=== PATIENT | male | born 1950 | race African-American/Black ===

== ENCOUNTER 2020-08-05 08:59 | Outpatient (REF) | payer MEDICARE, SELFPAY ==
[2020-08-05 10:17] LABS: Cholesterol 209 mg/dL; HDL Cholesterol 70 mg/dL; LDL Cholesterol Calculated 130 mg/dl; Triglycerides 46 mg/dL
== END 2020-08-05 09:00 | disposition home or self-care (01) ==
LOC: HO.LAB 08:59
PROVIDERS: PCP Internal Medicine; Visit Provider Internal Medicine
DX: E78.5 Hyperlipidemia, unspecified (principal)
CPT/HCPCS: 80061

== ENCOUNTER 2020-11-16 06:35 | Outpatient (REF) | payer MEDICARE, SELFPAY ==
[2020-11-16 07:47] LABS: Cholesterol 196 mg/dL; HDL Cholesterol 64 mg/dL; LDL Cholesterol Calculated 124 mg/dl; Triglycerides 44 mg/dL
== END 2020-11-16 06:36 | disposition home or self-care (01) ==
LOC: HO.LAB 06:35
PROVIDERS: Visit Provider Internal Medicine
DX: E11.9 Type 2 diabetes mellitus without complications (principal)
CPT/HCPCS: 36415; 80061

== ENCOUNTER 2020-12-02 08:33 | Day surgery (SDC) | payer MEDICARE, SELFPAY ==
[2020-11-28 11:59] VITALS: BMI 23.1
--- NOTE | 2020-11-30 14:53 | HO.ANESPROP2 ---
Documented by User: Blank Maddox 11/30/20 14:54 HPI - Anesthesia Eval Consult details Narrative: 70yo M for Colonoscopy PMFSH Past Medical History Medical History HTN (hypertension) Hx of pancreatitis Hyperlipidemia Family History Family History Father Diabetes Hypertension Prostate cancer Mother Alzheimers disease Surgical History Surgical History History of arthroplasty of right hip History of rectal polypectomy History of tonsillectomy Hx of colonoscopy Social History Social History Are you a primary medical care evaluation specialist to a significant other at home: No Do you presently have visiting nurse or other home services: No Alcohol intake: former Year quit: 2017 Smoking Status: Former smoker Smoking Quit Date: > 10 yrs ago Use of substances other than those prescribed or required for medical reasons: No Have you been hit, kicked, punched, or otherwise hurt by someone within the past year? If so, by whom?: No Advance Directives: No Advance Directives Information Provided: No Advance Directives on File: No Recently lost weight without trying: No Meds Allergies Allergy/AdvReac Type Severity Reaction Status Date / Time bee pollen [BEE STINGS] Allergy Mild SWELLING Verified 11/28/20 11:54 SHELLFISH Allergy Severe SWELLING Uncoded 11/28/20 11:54 Home Medications Medication Instructions Recorded Confirmed Type fexofenadine 180 mg tablet 180 mg PO DAILY 08/10/20 11/28/20 History tamsulosin 0.4 mg capsule 0.4 mg PO DAILY 08/10/20 11/28/20 History Exam Exam Date and Time: November 30, 2020 145 Height,Weight and Vital Signs: Height 6 ft 2 in Weight 81.647 kg Assessment and Plan Assessment Anesthesia Assessment: Chart Reviewed Documented by User: Augustin Bustillo MD 12/02/20 09:11 [facility] Past Medical History Medical History HTN (hypertension) Hx of pancreatitis Hyperlipidemia Family History Family History Father Diabetes Hypertension Prostate cancer Mother Alzheimers disease Surgical History Surgical History History of arthroplasty of right hip History of rectal polypectomy History of tonsillectomy Hx of colonoscopy Social History Social History Are you a primary medical care evaluation specialist to a significant other at home: No Do you presently have visiting nurse or other home services: No Alcohol intake: former Year quit: 2017 Smoking Status: Former smoker Smoking Quit Date: > 10 yrs ago Use of substances other than those prescribed or required for medical reasons: No Have you been hit, kicked, punched, or otherwise hurt by someone within the past year? If so, by whom?: No Advance Directives: No Advance Directives Information Provided: No Advance Directives on File: No Recently lost weight without trying: No Meds Allergies Allergy/AdvReac Type Severity Reaction Status Date / Time bee pollen [BEE STINGS] Allergy Mild SWELLING Verified 11/28/20 11:54 SHELLFISH Allergy Severe SWELLING Uncoded 11/28/20 11:54 Home Medications Medication Instructions Recorded Confirmed Type fexofenadine 180 mg tablet 180 mg PO DAILY 08/10/20 11/28/20 History tamsulosin 0.4 mg capsule 0.4 mg PO DAILY 08/10/20 11/28/20 History Exam Airway Mallampati Class: II TM Dist: >3cm Neck ROM: Full Partial: Upper and Lower Loose/Missing/Broken Teeth: Yes (Several missing, crowns, plaque) Heart: RRR Lungs: NL Assessment and Plan Assessment Anesthesia Assessment: Anesthesia Plan Discussed and Chart Reviewed Final Anesthetic Review NPO: Yes ASA Class: II Final Preanesthetic Review: No Changes in Pt Med Stat, Meds/Allgs Chart Reviewed and Consent Obtained/Reviewed Patient Risk: Low Procedure Risk: Low Anesthetic Plan Anesthetic Plan: MAC: and Neuraxial Block: Disposition: Standard PACU
[2020-12-02 09:05] VITALS: BP 129/78; PULSE 80; RESP 16; TEMP 36.1; O2SAT 99
[2020-12-02] MEDS: Lactated Ringers 1,000 ML 100 ML IVCONT (09:10)
[2020-12-02 10:34] VITALS: BP 105/62; PULSE 65; RESP 16; TEMP 36.1; O2SAT 100
--- NOTE | 2020-12-02 10:35 | PM.OP ---
Brief Operative Note Date of Service: 12/02/20 Pre-op diagnosis: Screening Post-op diagnosis: other (Diverticulosis) Procedure: Colonoscopy to the cecum and TI Surgeon: Michael Floyd Anesthesia: MAC Estimated blood loss (mL): 0 Pathology: none sent Condition: stable Disposition: PACU
[2020-12-02 10:48] VITALS: BP 127/73; PULSE 60; RESP 16; TEMP 36.6; O2SAT 100
--- NOTE | 2020-12-02 11:04 | OP_ITS ---
SURGEON: Michael Floyd MD INDICATIONS: The patient presents for evaluation of colorectal cancer screening. Full consent has been obtained from him for this, including risks of bleeding and perforation. PREOPERATIVE DIAGNOSIS: Colorectal cancer screening. POSTOPERATIVE DIAGNOSIS: PROCEDURE PERFORMED: Colonoscopy to the cecum and terminal ileum. ESTIMATED BLOOD LOSS: COMPLICATIONS: ANESTHESIA: Monitored anesthesia care. ASSISTANTS: SPECIMENS: POSTOPERATIVE DIAGNOSES: Colorectal cancer screening, diverticulosis, and internal hemorrhoids. DESCRIPTION OF PROCEDURE: The patient was placed in the left lateral decubitus position. The digital rectal exam revealed no abnormalities. The Olympus video pediatric colonoscope was entered into the rectum and advanced easily to the cecum. Once in the cecum, I did identify normal-appearing cecal pouch with appendiceal orifice and a normal-appearing ileocecal valve. The terminal ileum was cannulated and appeared normal. The scope was withdrawn back in the colon. The entire cecum and ileocecal valve appeared normal. The scope was slowly withdrawn assessing all mucosal surfaces carefully. Preparation was excellent. I did not visualize any sign of polyps, colitis, nor angiodysplasia. There was a moderate amount of sigmoid diverticulosis. In the rectum, scope was retroflexed visualizing internal hemorrhoids, but no other pathology. The rectal mucosa appeared normal. The scope was straightened out and withdrawn from the patient. He tolerated the procedure well and was returned to the recovery area in stable condition. IMPRESSION: 1. Diverticulosis. 2. Internal hemorrhoids. PLAN: Given the patient's negative exam, a negative colonoscopy in 2009, no family history of colon cancer, and his age, I do not think he will need any further screening colonoscopies. He will see me on a p.r.n. basis. MD JOSE Tate/CITLALI / [phone]
--- NOTE | 2020-12-02 11:18 | HO.POSTANES ---
Post Anesthesia Evaluation Post Anesthesia Evaluation Vital Signs: Vital Signs Temp Pulse Resp BP Pulse Ox 12/02/20 10:48 97.8 F 60 16 127/73 100 12/02/20 10:34 97.0 F 65 16 105/62 100 12/02/20 09:05 97.0 F 80 16 129/78 99 Anesthesia: Monitored Mental Status: Awake Pain Control: Satisfactory Nausea/Vomiting: None Hydration: Adequate Anesthesia-Related Issues: No Anes. Related Issues
== END 2020-12-02 11:13 | disposition home or self-care (01) ==
PROVIDERS: PCP Internal Medicine; Visit Provider Internal Medicine
PROC: 0DJD8ZZ Inspection of Lower Intestinal Tract, Via Natural or Artificial Opening Endoscopic (ICD-10-PCS; CPT 45378; principal; 2020-12-02 09:40)
DX: Z12.11 Encounter for screening for malignant neoplasm of colon (principal); K57.30 Diverticulosis of large intestine without perforation or abscess without bleeding; K64.8 Other hemorrhoids; I10 Essential (primary) hypertension; Z79.899 Other long term (current) drug therapy
CPT/HCPCS: G0121

== ENCOUNTER 2021-02-08 06:50 | Outpatient (REF) | payer MEDICARE, SELFPAY ==
[2021-02-08 07:23] LABS: MANUAL DIFF FLAG NO
[2021-02-08 07:38] LABS: Basophils Percent Auto 0.8 % (0-2); Eosinophils Absolute Auto 0.3 X10*3/uL (0.0-0.4); Eosinophils Percent Auto 6.3 % (0-4); Hematocrit 44.1 % (42-52); Imm Gran Abs Auto 0.01 X10*3/uL (0.00-0.03); Imm Gran Pct Auto 0.2 % (0.0-0.4); Lymphocytes Absolute Auto 2.1 X10*3/uL (1.2-4.9); Lymphocytes Percent Auto 43.5 % (20-40); Mean Corpuscular HGB Conc 31.7 g/dl (31.0-36.0); Mean Corpuscular Hemoglobin 24.9 pg (27.0-33.0); Mean Corpuscular Volume 78.3 fL (80-98); Mean Platelet Volume 8.7 fL (9.4-12.4); Monocytes Absolute Auto 0.4 X10*3/uL (0.1-1.2); Monocytes Percent Auto 8.2 % (2-11); Neutrophils Absolute Auto 1.9 X10*3/uL (2.0-8.3); Platelet Count 218 X10*3/uL (160-400); Red Blood Count 5.63 X10*6/uL (4.60-5.80); Red Cell Distribution Width 15.1 % (11.0-16.0); White Blood Count 4.7 X10*3/uL (4.8-10.8)
[2021-02-08 08:03] LABS: Alanine Aminotransferase 21 U/L (0-40); Albumin Level 4.2 g/dL (3.5-5.0); Alkaline Phosphatase 82 U/L (39-117); Anion Gap 8 (12-20); Aspartate Amino Transferase 20 U/L (5-37); Bilirubin Total 0.7 mg/dL (0.0-1.0); Blood Urea Nitrogen 14 mg/dL (9-16); Calcium 9.8 mg/dL (8.4-10.2); Carbon Dioxide 29 mmol/L (22-29); Chloride 108 mmol/L (96-108); Cholesterol 241 mg/dL; Estimated Glomerular Filt Rate > 60; Glucose Fasting 94 mg/dL (60-99); HDL Cholesterol 76 mg/dL; LDL Cholesterol Calculated 154 mg/dl; Potassium 4.4 mmol/L (3.3-5.1); Sodium 141 mmol/L (135-145); Total Protein 7.2 g/dL (6.5-8.0); Triglycerides 55 mg/dL
[2021-02-08 08:23] LABS: Prostate Specific Antigen 2.77 ng/mL (<0.05-4.0)
== END 2021-02-08 06:51 | disposition home or self-care (01) ==
LOC: HO.LAB 06:50
PROVIDERS: Absent Provider Nurse Practitioner Family; PCP Internal Medicine; Visit Provider Internal Medicine
DX: Z00.00 Encounter for general adult medical examination without abnormal findings (principal); E11.9 Type 2 diabetes mellitus without complications; Z12.5 Encounter for screening for malignant neoplasm of prostate
CPT/HCPCS: 36415; 80053; 80061; 84153; 85025

== ENCOUNTER 2021-06-26 05:58 | Outpatient (REF) | payer MEDICARE, SELFPAY ==
[2021-06-26 07:58] LABS: Cholesterol 228 mg/dL; HDL Cholesterol 68 mg/dL; LDL Cholesterol Calculated 148 mg/dl; Triglycerides 64 mg/dL
== END 2021-06-26 05:59 | disposition home or self-care (01) ==
LOC: HO.LAB 05:58
PROVIDERS: PCP Internal Medicine; Visit Provider Internal Medicine
DX: E11.9 Type 2 diabetes mellitus without complications (principal); E78.5 Hyperlipidemia, unspecified
CPT/HCPCS: 36415; 80061

== ENCOUNTER → 2021-08-16 12:59 | Outpatient (BNVA) | payer MEDICARE, SELFPAY | PROVIDERS: Visit Provider Urology | DX: N40.1 Benign prostatic hyperplasia with lower urinary tract symptoms (principal); N13.8 Other obstructive and reflux uropathy | CPT/HCPCS: Q3014 ==

== ENCOUNTER 2021-11-10 06:44 | Outpatient (REF) | payer MEDICARE, SELFPAY ==
[2021-11-10 08:03] LABS: Cholesterol 236 mg/dL; HDL Cholesterol 66 mg/dL; LDL Cholesterol Calculated 157 mg/dl; Triglycerides 65 mg/dL
== END 2021-11-10 06:45 | disposition home or self-care (01) ==
LOC: HO.LAB 06:44
PROVIDERS: PCP Internal Medicine; Visit Provider Internal Medicine
DX: E11.9 Type 2 diabetes mellitus without complications (principal)
CPT/HCPCS: 36415; 80061

== ENCOUNTER 2022-05-07 07:12 | Outpatient (REF) | payer MEDICARE, SELFPAY ==
[2022-05-07 07:29] LABS: MANUAL DIFF FLAG NO
[2022-05-07 08:04] LABS: Basophils Percent Auto 0.9 % (0-2); Eosinophils Absolute Auto 0.1 X10*3/uL (0.0-0.4); Eosinophils Percent Auto 2.4 % (0-4); Hematocrit 43.3 % (42.0-52.0); Imm Gran Abs Auto 0.01 X10*3/uL (0.00-0.03); Imm Gran Pct Auto 0.2 % (0.0-0.4); Lymphocytes Absolute Auto 1.8 X10*3/uL (1.2-4.9); Lymphocytes Percent Auto 38.2 % (20-40); Mean Corpuscular HGB Conc 32.3 g/dl (31.0-36.0); Mean Corpuscular Volume 77.5 fL (80.0-98.0); Monocytes Absolute Auto 0.3 X10*3/uL (0.1-1.2); Monocytes Percent Auto 7.3 % (2-11); Neutrophils Absolute Auto 2.4 x10*3/uL (2.0-8.3); Platelet Count 233 X10*3/uL (160-400); Red Blood Count 5.59 X10*6/uL (4.60-5.80); Red Cell Distribution Width 15.3 % (11.0-16.0); White Blood Count 4.7 X10*3/uL (4.8-10.8)
[2022-05-07 08:44] LABS: Alanine Aminotransferase 23 U/L (0-40); Albumin Level 4.2 g/dL (3.5-5.0); Alkaline Phosphatase 70 U/L (39-117); Anion Gap 12 (12-20); Aspartate Amino Transferase 22 U/L (5-37); Bilirubin Total 0.6 mg/dL (0.0-1.0); Blood Urea Nitrogen 20 mg/dL (9-16); Calcium 9.4 mg/dL (8.4-10.2); Carbon Dioxide 27 mmol/L (22-29); Chloride 107 mmol/L (96-108); Cholesterol 223 mg/dL; Estimated Glomerular Filt Rate > 60; Glucose Fasting 91 mg/dL (60-99); HDL Cholesterol 72 mg/dL; LDL Cholesterol Calculated 141 mg/dl; Potassium 4.6 mmol/L (3.3-5.1); Sodium 141 mmol/L (135-145); Total Protein 7.2 g/dL (6.5-8.0); Triglycerides 54 mg/dL
[2022-05-07 08:51] LABS: Prostate Specific Antigen Scr 2.87 ng/mL (<0.05-4.0); Thyroid Stimulating Hormone 1.44 uIU/mL (0.32-4.0)
== END 2022-05-07 07:13 | disposition home or self-care (01) ==
LOC: HO.LAB 07:12
PROVIDERS: PCP Internal Medicine; Visit Provider Internal Medicine
DX: Z00.00 Encounter for general adult medical examination without abnormal findings (principal); Z12.5 Encounter for screening for malignant neoplasm of prostate; Z13.0 Encounter for screening for diseases of the blood and blood-forming organs and certain disorders involving the immune mechanism
CPT/HCPCS: 36415; 80053; 80061; 84153; 84443; 85025

== ENCOUNTER 2022-06-29 06:43 | Outpatient (REF) | payer MEDICARE, SELFPAY ==
[2022-06-29 07:56] LABS: PSA,Total (Free>4and<10) 3.18 ng/mL (0.00-4.00)
== END 2022-06-29 06:44 | disposition home or self-care (01) ==
LOC: HO.LAB 06:43
PROVIDERS: PCP Internal Medicine; Visit Provider Urology
DX: Z12.5 Encounter for screening for malignant neoplasm of prostate (principal); N40.1 Benign prostatic hyperplasia with lower urinary tract symptoms; N13.8 Other obstructive and reflux uropathy
CPT/HCPCS: 36415; 84153

== ENCOUNTER → 2022-07-12 13:24 | Outpatient (BNVA) | payer MEDICARE, SELFPAY | PROVIDERS: PCP Internal Medicine; Visit Provider Urology | DX: N40.1 Benign prostatic hyperplasia with lower urinary tract symptoms (principal); N13.8 Other obstructive and reflux uropathy | CPT/HCPCS: Q3014 ==

== ENCOUNTER 2022-11-26 06:03 | Outpatient (REF) | payer MEDICARE, SELFPAY ==
[2022-11-26 06:18] LABS: MANUAL DIFF FLAG NO
[2022-11-26 07:46] LABS: Basophils Absolute Auto 0.1 X10*3/uL (0.0-0.2); Eosinophils Absolute Auto 0.2 X10*3/uL (0.0-0.4); Hematocrit 44.9 % (42.0-52.0); Hemoglobin 14.6 g/dl (14.0-18.0); Imm Gran Abs Auto 0.01 X10*3/uL (0.00-0.03); Imm Gran Pct Auto 0.2 % (0.0-0.4); Lymphocytes Absolute Auto 2.7 X10*3/uL (1.2-4.9); Lymphocytes Percent Auto 53.4 % (20-40); Mean Corpuscular HGB Conc 32.5 g/dl (31.0-36.0); Mean Corpuscular Hemoglobin 25.1 pg (27.0-33.0); Mean Corpuscular Volume 77.1 fL (80.0-98.0); Mean Platelet Volume 9.4 fL (9.4-12.4); Monocytes Absolute Auto 0.4 X10*3/uL (0.1-1.2); Monocytes Percent Auto 7.9 % (2-11); Neutrophils Absolute Auto 1.7 x10*3/uL (2.0-8.3); Neutrophils Percent Auto 33.5 % (45-73); Platelet Count 240 X10*3/uL (160-400); Red Blood Count 5.82 X10*6/uL (4.60-5.80); Red Cell Distribution Width 14.9 % (11.0-16.0)
[2022-11-26 08:13] LABS: Alanine Aminotransferase 19 U/L (0-40); Albumin Level 4.1 g/dL (3.5-5.0); Alkaline Phosphatase 71 U/L (39-117); Anion Gap 14 (12-20); Aspartate Amino Transferase 21 U/L (5-37); Bilirubin Total 0.7 mg/dL (0.0-1.0); Blood Urea Nitrogen 21 mg/dL (9-16); Calcium 9.7 mg/dL (8.4-10.2); Carbon Dioxide 28 mmol/L (22-29); Chloride 106 mmol/L (96-108); Cholesterol 256 mg/dL; Estimated Glomerular Filt Rate > 60; Glucose Fasting 87 mg/dL (60-99); HDL Cholesterol 70 mg/dL; LDL Cholesterol Calculated 174 mg/dl; Potassium 4.5 mmol/L (3.3-5.1); Sodium 143 mmol/L (135-145); Total Protein 7.1 g/dL (6.5-8.0); Triglycerides 62 mg/dL
== END 2022-11-26 06:04 | disposition home or self-care (01) ==
LOC: HO.LAB 06:03
PROVIDERS: PCP Internal Medicine; Visit Provider Internal Medicine
DX: Z00.00 Encounter for general adult medical examination without abnormal findings (principal); Z13.0 Encounter for screening for diseases of the blood and blood-forming organs and certain disorders involving the immune mechanism; E78.5 Hyperlipidemia, unspecified
CPT/HCPCS: 36415; 80053; 80061; 85025

== ENCOUNTER 2022-12-24 19:09 | Emergency (ER) | payer MEDICARE, SELFPAY ==
--- NOTE | ~2022-12-24 | CT_ITS ---
EXAMINATION: CT HEAD WITHOUT CONTRAST CLINICAL INFORMATION: Severe headache. COMPARISON: CT head from 07-17. TECHNIQUE: Contiguous axial imaging was performed from the skull base to vertex without intravenous administration of contrast. This CT examination was performed using dose optimization techniques as appropriate, variously including the following: *Automated exposure control. *Adjustment of mA and/or kV according to patient size (this includes techniques or standardized protocols for targeted exams where dose is matched to indication/reason for exam; i.e. extremities or head). *Use of iterative reconstruction technique. DLP: 600 mGy-cm FINDINGS: There is no evidence of acute intracranial hemorrhage or edematous territorial infarction. Dejesus-white matter differentiation is preserved. A few foci of hypoattenuation in the periventricular and deep white matter are consistent with mild microangiopathy. Proportional prominence of the ventricles and sulcal spaces without evidence of obstructive hydrocephalus. No abnormal mass effect or midline shift. No extra-axial fluid collections. No acute soft tissue or osseous abnormalities. Mild mucosal thickening of the paranasal sinuses. Moderate leftward nasal septal deviation with spurring. The mastoid air cells and middle ear cavities are clear. CT/CT head/brain wo IV con IMPRESSION: 1. No evidence of acute intracranial hemorrhage or edematous territorial infarction. 2. Mild underlying microangiopathy and generalized cerebral volume loss.
--- NOTE | ~2022-12-24 | CT_ITS ---
EXAMINATION: CT ABDOMEN AND PELVIS WITHOUT CONTRAST CLINICAL INFORMATION: Mid abdominal pain with history of pancreatitis COMPARISON: 07-15 TECHNIQUE: Multidetector volumetric imaging was performed from the superior aspect of the liver through the pubic symphysis. Sagittal and coronal reformatted images were obtained on the technologist's workstation. This CT examination was performed using dose optimization techniques as appropriate, variously including the following: *Automated exposure control *Adjustment of mA and/or kV according to patient size (this includes techniques or standardized protocols for targeted exams where dose is matched to indication/reason for exam; i.e. extremities or head) *Use of iterative reconstruction technique DLP: 556 mGy-cm FINDINGS: LUNG BASES: Prominent emphysematous changes redemonstrated. LIVER, GALLBLADDER, AND BILIARY TREE: The liver is normal in size, shape, and attenuation. No focal hepatic lesion or biliary ductal dilatation is identified. Gallbladder is contracted. PANCREAS: Unremarkable. SPLEEN: Unremarkable. ADRENAL GLANDS: Unremarkable. KIDNEYS AND URETERS: No hydronephrosis or obstructing calculus bilaterally. BLADDER: Unremarkable. GASTROINTESTINAL TRACT: No evidence of bowel obstruction or wall thickening. Colonic diverticulosis is noted. The appendix is unremarkable. No free fluid or free air is seen. ABDOMINAL WALL: No significant hernia is appreciated. LYMPH NODES: No lymphadenopathy is seen, though assessment is limited in the absence of intravenous contrast. VASCULAR: Scattered atherosclerotic calcifications. PELVIC VISCERA: Unremarkable. OSSEOUS STRUCTURES: Degenerative changes are noted in the spine. Partially visualized right total hip arthroplasty hardware. CT/CT abdomen pelvis wo IV con IMPRESSION: No acute findings identified in the abdomen/pelvis. Colonic diverticulosis without diverticulitis.
[2022-12-24 20:22] VITALS: BP 139/76; PULSE 81; RESP 16; TEMP 36.6; O2SAT 96; BMI 23.3
--- NOTE | 2022-12-24 20:22 | ED_ITS ---
HPI - Headache General Chief Complaint: Headache <MAURO Verma - Last Filed: 12/24/22 20:26> Stated Complaint: severe h/a,and neck pain sent from clinic <MAURO Verma - Last Filed: 12/24/22 20:26> Time Seen by Provider: 12/24/22 22:27 <MAURO Verma - Last Filed: 12/24/22 20:26> Source: patient <Jasson Curry MD - Last Filed: 12/25/22 00:59> Mode of arrival: ambulatory <Jasson Curry MD - Last Filed: 12/25/22 00:59> Limitations: no limitations <Jasson Curry MD - Last Filed: 12/25/22 00:59> History of Present Illness HPI Narrative: Patient with history of hypertension hyperlipidemia complaining of pain in the right side of the head for last 5 days no trauma no prior history of headaches patient feel sensitive to light no nausea no vomiting patient also complaining of epigastric pain with history of pancreatitis in the past pain is going on for last 1 week no nausea no vomiting feel abdomen gaseous distended. No fever no chills no urinary symptoms <Jasson Curry MD - Last Filed: 12/25/22 00:59> Related Data Home Medications: Home Medications Medication Instructions Recorded Confirmed fexofenadine 180 mg tablet 180 mg PO DAILY 08/10/20 11/28/22 (Jessica Allergy) Previous Rx's Medication Instructions Recorded benazepril 20 mg tablet 20 mg PO DAILY #90 tabs 12/29/21 atorvastatin 40 mg tablet 40 mg PO DAILY #90 tabs 11/28/22 ibuprofen 600 mg tablet 600 mg PO Q6H PRN pain #20 tabs 12/25/22 <MAURO Verma - Last Filed: 12/24/22 20:26> Allergies/Adverse Reactions: Allergies Allergy/AdvReac Type Severity Reaction Status Date / Time bee pollen [BEE STINGS] Allergy Mild SWELLING Verified 11/28/22 08:57 SHELLFISH Allergy Severe SWELLING Uncoded 10/10/22 11:14 <MAURO Verma - Last Filed: 12/24/22 20:26> Review of Systems Review of Systems: Yes all other systems are reviewed and are negative <Jasson Curry MD - Last Filed: 12/25/22 00:59> [facility] Past Medical History Medical History: Medical History HTN (hypertension) Hx of pancreatitis Hyperlipidemia <MAURO Verma - Last Filed: 12/24/22 20:26> Surgical History: Surgical History History of arthroplasty of right hip History of rectal polypectomy History of tonsillectomy Hx of colonoscopy <MAURO Verma - Last Filed: 12/24/22 20:26> Family History Family History: Family History Father Diabetes Hypertension Prostate cancer Mother Alzheimers disease <MAURO Verma - Last Filed: 12/24/22 20:26> Social History Social History: Social History Housing: House Are you a primary career development coordinator/teacher to a significant other at home: No Do you presently have visiting nurse or other home services: No Alcohol intake: former Year quit: 2018 Patient Tobacco Use Status: Former Tobacco user Tobacco use type: Cigarette e-Cigarette/Vaping Use: Never Used Second Hand Smoke Exposure: No Use of substances other than those prescribed or required for medical reasons: No Advance Directives: No Advance Directives Information Provided: Yes service: No Current occupational status: retired Cognitive needs: No Hearing needs: Yes (hearing aides) Vision needs: Yes (glasses) <MAURO Verma - Last Filed: 12/24/22 20:26> Physical Exam Vital Signs: Vital Signs: Last Vital Signs Temp 98.6 F 12/24/22 23:37 Pulse 69 12/24/22 23:37 Resp 16 12/24/22 23:37 BP 137/80 12/24/22 23:37 Pulse Ox 97 12/24/22 23:37 O2 Del Method 12/24/22 23:37 BMI result Body Mass Index 23.3 <MAURO Verma - Last Filed: 12/24/22 20:26> Vital Signs: Last Vital Signs Temp 98.6 F 12/24/22 23:37 Pulse 69 12/24/22 23:37 Resp 16 12/24/22 23:37 BP 137/80 12/24/22 23:37 Pulse Ox 97 12/24/22 23:37 O2 Del Method 12/24/22 23:37 BMI result Body Mass Index 23.3 <Jasson Curry MD - Last Filed: 12/25/22 00:59> Appearance: Alert. Oriented X3. No acute distress. Eyes: PERRLA, No Nystagmus ENT: Pharynx normal. Oral Mucosa moist Neck: Normal inspection. Neck supple. CVS: Normal heart rate and rhythm. Pulses normal. Respiratory: No respiratory distress. Equal air entry bilateral, no wheezing/rales/rhonchi Abdomen: Soft, mild epigastric tenderness,. Bowel sounds are present, no mass palpable, no CVA tenderness Skin: Skin warm and dry. Normal skin color. Normal skin turgor. Extremities: No lower extremity edema. No calf tenderness Neuro: Oriented X 3. No motor deficit. No sensory deficit.No cerebellar signs , cranial nerves II-XII intact <Jasson Curry MD - Last Filed: 12/25/22 00:59> Course Course Course Narrative: RME - 72 yo male with history of HTN, HLD, BPH presents to the ER for evaluation of persistent headache since 12/20. He also reports sore throat pain, sore neck, chills, occasional cough. Has been taking Theraflu wtih no relief. Was seen at Urgent Care today and told to come to the ER for evaluation - had negative COVID and Flu tests there. Reports eye pain and diffculty reading and watching TV due to eye pain. No blurred vision or vision changes. VSS in triage, appears well. Plan - CT head, labs, viral studies. <MAURO Verma - Last Filed: 12/24/22 20:26> Medications Administered Discontinued Medications Generic Name Dose Route Start Last Admin Trade Name Freq PRN Reason Stop Dose Admin Famotidine 20 mg 12/24/22 22:46 12/24/22 23:12 Famotidine/Pf 20 Mg/2 Ml Vial IVPUSH 12/24/22 22:47 20 mg ONCE ONE Administration Sodium Chloride 1,000 mls @ 999 mls/hr 12/24/22 22:45 12/25/22 00:52 Ns IV 12/24/22 23:45 Infused .Q1H1M ONE Infusion Morphine Sulfate 4 mg 12/24/22 22:46 12/24/22 23:11 Morphine Sulfate 4 Mg/Ml Cartridge IVPUSH 12/24/22 22:47 4 mg ONCE ONE Administration Protocol Ondansetron HCl 4 mg 12/24/22 22:46 12/24/22 23:12 Ondansetron Hcl 4 Mg/2 Ml Vial IVPUSH 12/24/22 22:47 4 mg ONCE ONE Administration <MAURO Verma - Last Filed: 12/24/22 20:26> Medications Administered Discontinued Medications Generic Name Dose Route Start Last Admin Trade Name Amish PRN Reason Stop Dose Admin Famotidine 20 mg 12/24/22 22:46 12/24/22 23:12 Famotidine/Pf 20 Mg/2 Ml Vial IVPUSH 12/24/22 22:47 20 mg ONCE ONE Administration Sodium Chloride 1,000 mls @ 999 mls/hr 12/24/22 22:45 12/25/22 00:52 Ns IV 12/24/22 23:45 Infused .Q1H1M ONE Infusion Morphine Sulfate 4 mg 12/24/22 22:46 12/24/22 23:11 Morphine Sulfate 4 Mg/Ml Cartridge IVPUSH 12/24/22 22:47 4 mg ONCE ONE Administration Protocol Ondansetron HCl 4 mg 12/24/22 22:46 12/24/22 23:12 Ondansetron Hcl 4 Mg/2 Ml Vial IVPUSH 12/24/22 22:47 4 mg ONCE ONE Administration <Jasson Curry MD - Last Filed: 12/25/22 00:59> Medical Decision Making Medical Decision Making MDM Narrative: Patient nonspecific right-sided headache likely migraine CT scan of the head is negative also had epigastric pain with CT scan of the abdomen was negative elevated LFTs likely from at rest stated stared taking for last 2 weeks. Also patient does have history of alcohol use. Patient advised to follow with GI specialist for further evaluation <Jasson Curry MD - Last Filed: 12/25/22 00:59> Lab Data MDM Lab Attestation statement: I reviewed the patient's lab results. <Jasson Curry MD - Last Filed: 12/25/22 00:59> Result Diagrams: 12/24/22 20:47 12/24/22 20:47 <MAURO Verma - Last Filed: 12/24/22 20:26> Labs: Lab Results 12/24/22 12/24/22 12/24/22 Range/Units 20:47 20:47 20:47 WBC 4.9 (4.8-10.8) X10*3/uL RBC 5.57 (4.60-5.80) X10*6/uL Hgb 13.8 L (14.0-18.0) g/dl Hct 42.1 (42.0-52.0) % MCV 75.6 L (80.0-98.0) fL MCH 24.8 L (27.0-33.0) pg MCHC 32.8 (31.0-36.0) g/dl RDW 14.7 (11.0-16.0) % Plt Count 181 (160-400) X10*3/uL MPV 9.0 L (9.4-12.4) fL Immature Gran % (Auto) 0.2 (0.0-0.4) % Neut % (Auto) 53.9 (45-73) % Lymph % (Auto) 27.1 (20-40) % Worth % (Auto) 9.6 (2-11) % Eos % (Auto) 8.6 H (0-4) % Baso % (Auto) 0.6 (0-2) % Lymph # (Auto) 1.3 (1.2-4.9) X10*3/uL Worth # (Auto) 0.5 (0.1-1.2) X10*3/uL Eos # (Auto) 0.4 (0.0-0.4) X10*3/uL Baso # (Auto) 0.0 (0.0-0.2) X10*3/uL Abs Immat Gran (auto) 0.01 (0.00-0.03) X10*3/uL Absolute Neuts (auto) 2.7 (2.0-8.3) x10*3/uL Absolute Nucleated RBC 0.000 (0.0-0.012) X10*3/uL Nucleated RBC % (auto) 0.0 (0.0-0.2) /100WBC Sodium 142 (135-145) mmol/L Potassium 3.9 (3.3-5.1) mmol/L Chloride 107 (96-108) mmol/L Carbon Dioxide 26 (22-29) mmol/L Anion Gap 13 (12-20) BUN 18 H (9-16) mg/dL Creatinine 1.07 (0.5-1.4) mg/dL Estim Creat Clear Calc 70.4 Estimated GFR > 60 Random Glucose 115 (60-115) mg/dL Calcium 8.7 D (8.4-10.2) mg/dL Magnesium 2.2 (1.6-2.6) mg/dL Total Bilirubin 4.6 H (0.0-1.0) mg/dL Direct Bilirubin 3.4 H (0.0-0.5) mg/dL AST 117 H (5-37) U/L ALT 192 H (0-40) U/L Alkaline Phosphatase 279 H (39-117) U/L Total Protein 6.5 (6.5-8.0) g/dL Albumin 3.5 (3.5-5.0) g/dL Lipase 39 (8-78) U/L Urine Color Urine Appearance Urine pH (5.0-9.0) Ur Specific [place] (1.005-1.025) Urine Protein (Neg-Trace) mg/dL Urine Glucose (UA) (Negative) mg/dL Urine Ketones (Negative) mg/dL Urine Blood (Negative) Urine Nitrite (Negative) Ur Leukocyte Esterase (Negative) Urine RBC (0-2) /HPF Urine WBC (0-5) /HPF Ur Squamous Epith Cells (0-2) /HPF Urine Bacteria (None Seen) Hyaline Casts (0-2) /LPF COVID-19 (GUERO) Negative (Negative) COVID-19 Clin Com See Note Influenza Type A (MARY) (Negative) Influenza Type B (MARY) (Negative) Influenza A & B Note 12/24/22 12/25/22 Range/Units 20:47 00:30 WBC (4.8-10.8) X10*3/uL RBC (4.60-5.80) X10*6/uL Hgb (14.0-18.0) g/dl Hct (42.0-52.0) % MCV (80.0-98.0) fL MCH (27.0-33.0) pg MCHC (31.0-36.0) g/dl RDW (11.0-16.0) % Plt Count (160-400) X10*3/uL MPV (9.4-12.4) fL Immature Gran % (Auto) (0.0-0.4) % Neut % (Auto) (45-73) % Lymph % (Auto) (20-40) % Worth % (Auto) (2-11) % Eos % (Auto) (0-4) % Baso % (Auto) (0-2) % Lymph # (Auto) (1.2-4.9) X10*3/uL Worth # (Auto) (0.1-1.2) X10*3/uL Eos # (Auto) (0.0-0.4) X10*3/uL Baso # (Auto) (0.0-0.2) X10*3/uL Abs Immat Gran (auto) (0.00-0.03) X10*3/uL Absolute Neuts (auto) (2.0-8.3) x10*3/uL Absolute Nucleated RBC (0.0-0.012) X10*3/uL Nucleated RBC % (auto) (0.0-0.2) /100WBC Sodium (135-145) mmol/L Potassium (3.3-5.1) mmol/L Chloride (96-108) mmol/L Carbon Dioxide (22-29) mmol/L Anion Gap (12-20) BUN (9-16) mg/dL Creatinine (0.5-1.4) mg/dL Estim Creat Clear Calc Estimated GFR Random Glucose (60-115) mg/dL Calcium (8.4-10.2) mg/dL Magnesium (1.6-2.6) mg/dL Total Bilirubin (0.0-1.0) mg/dL Direct Bilirubin (0.0-0.5) mg/dL AST (5-37) U/L ALT (0-40) U/L Alkaline Phosphatase (39-117) U/L Total Protein (6.5-8.0) g/dL Albumin (3.5-5.0) g/dL Lipase (8-78) U/L Urine Color Dark Yellow Urine Appearance Clear Urine pH 6.0 (5.0-9.0) Ur Specific [place] 1.020 (1.005-1.025) Urine Protein 100 (2+) H (Neg-Trace) mg/dL Urine Glucose (UA) Negative (Negative) mg/dL Urine Ketones Trace (Negative) mg/dL Urine Blood Trace H (Negative) Urine Nitrite Negative (Negative) Ur Leukocyte Esterase Trace H (Negative) Urine RBC 3-5 H (0-2) /HPF Urine WBC 0-5 (0-5) /HPF Ur Squamous Epith Cells 0-2 (0-2) /HPF Urine Bacteria None Seen (None Seen) Hyaline Casts 0-2 (0-2) /LPF COVID-19 (GUERO) (Negative) COVID-19 Clin Com Influenza Type A (MARY) Negative (Negative) Influenza Type B (MARY) Negative (Negative) Influenza A & B Note See Note <MAURO Verma - Last Filed: 12/24/22 20:26> Lab Results 12/24/22 12/24/22 12/24/22 Range/Units 20:47 20:47 20:47 WBC 4.9 (4.8-10.8) X10*3/uL RBC 5.57 (4.60-5.80) X10*6/uL Hgb 13.8 L (14.0-18.0) g/dl Hct 42.1 (42.0-52.0) % MCV 75.6 L (80.0-98.0) fL MCH 24.8 L (27.0-33.0) pg MCHC 32.8 (31.0-36.0) g/dl RDW 14.7 (11.0-16.0) % Plt Count 181 (160-400) X10*3/uL MPV 9.0 L (9.4-12.4) fL Immature Gran % (Auto) 0.2 (0.0-0.4) % Neut % (Auto) 53.9 (45-73) % Lymph % (Auto) 27.1 (20-40) % Worth % (Auto) 9.6 (2-11) % Eos % (Auto) 8.6 H (0-4) % Baso % (Auto) 0.6 (0-2) % Lymph # (Auto) 1.3 (1.2-4.9) X10*3/uL Worth # (Auto) 0.5 (0.1-1.2) X10*3/uL Eos # (Auto) 0.4 (0.0-0.4) X10*3/uL Baso # (Auto) 0.0 (0.0-0.2) X10*3/uL Abs Immat Gran (auto) 0.01 (0.00-0.03) X10*3/uL Absolute Neuts (auto) 2.7 (2.0-8.3) x10*3/uL Absolute Nucleated RBC 0.000 (0.0-0.012) X10*3/uL Nucleated RBC % (auto) 0.0 (0.0-0.2) /100WBC Sodium 142 (135-145) mmol/L Potassium 3.9 (3.3-5.1) mmol/L Chloride 107 (96-108) mmol/L Carbon Dioxide 26 (22-29) mmol/L Anion Gap 13 (12-20) BUN 18 H (9-16) mg/dL Creatinine 1.07 (0.5-1.4) mg/dL Estim Creat Clear Calc 70.4 Estimated GFR > 60 Random Glucose 115 (60-115) mg/dL Calcium 8.7 D (8.4-10.2) mg/dL Magnesium 2.2 (1.6-2.6) mg/dL Total Bilirubin 4.6 H (0.0-1.0) mg/dL Direct Bilirubin 3.4 H (0.0-0.5) mg/dL AST 117 H (5-37) U/L ALT 192 H (0-40) U/L Alkaline Phosphatase 279 H (39-117) U/L Total Protein 6.5 (6.5-8.0) g/dL Albumin 3.5 (3.5-5.0) g/dL Lipase 39 (8-78) U/L Urine Color Urine Appearance Urine pH (5.0-9.0) Ur Specific [place] (1.005-1.025) Urine Protein (Neg-Trace) mg/dL Urine Glucose (UA) (Negative) mg/dL Urine Ketones (Negative) mg/dL Urine Blood (Negative) Urine Nitrite (Negative) Ur Leukocyte Esterase (Negative) Urine RBC (0-2) /HPF Urine WBC (0-5) /HPF Ur Squamous Epith Cells (0-2) /HPF Urine Bacteria (None Seen) Hyaline Casts (0-2) /LPF COVID-19 (GUERO) Negative (Negative) COVID-19 Clin Com See Note Influenza Type A (MARY) (Negative) Influenza Type B (MARY) (Negative) Influenza A & B Note 12/24/22 12/25/22 Range/Units 20:47 00:30 WBC (4.8-10.8) X10*3/uL RBC (4.60-5.80) X10*6/uL Hgb (14.0-18.0) g/dl Hct (42.0-52.0) % MCV (80.0-98.0) fL MCH (27.0-33.0) pg MCHC (31.0-36.0) g/dl RDW (11.0-16.0) % Plt Count (160-400) X10*3/uL MPV (9.4-12.4) fL Immature Gran % (Auto) (0.0-0.4) % Neut % (Auto) (45-73) % Lymph % (Auto) (20-40) % Worth % (Auto) (2-11) % Eos % (Auto) (0-4) % Baso % (Auto) (0-2) % Lymph # (Auto) (1.2-4.9) X10*3/uL Worth # (Auto) (0.1-1.2) X10*3/uL Eos # (Auto) (0.0-0.4) X10*3/uL Baso # (Auto) (0.0-0.2) X10*3/uL Abs Immat Gran (auto) (0.00-0.03) X10*3/uL Absolute Neuts (auto) (2.0-8.3) x10*3/uL Absolute Nucleated RBC (0.0-0.012) X10*3/uL Nucleated RBC % (auto) (0.0-0.2) /100WBC Sodium (135-145) mmol/L Potassium (3.3-5.1) mmol/L Chloride (96-108) mmol/L Carbon Dioxide (22-29) mmol/L Anion Gap (12-20) BUN (9-16) mg/dL Creatinine (0.5-1.4) mg/dL Estim Creat Clear Calc Estimated GFR Random Glucose (60-115) mg/dL Calcium (8.4-10.2) mg/dL Magnesium (1.6-2.6) mg/dL Total Bilirubin (0.0-1.0) mg/dL Direct Bilirubin (0.0-0.5) mg/dL AST (5-37) U/L ALT (0-40) U/L Alkaline Phosphatase (39-117) U/L Total Protein (6.5-8.0) g/dL Albumin (3.5-5.0) g/dL Lipase (8-78) U/L Urine Color Dark Yellow Urine Appearance Clear Urine pH 6.0 (5.0-9.0) Ur Specific [place] 1.020 (1.005-1.025) Urine Protein 100 (2+) H (Neg-Trace) mg/dL Urine Glucose (UA) Negative (Negative) mg/dL Urine Ketones Trace (Negative) mg/dL Urine Blood Trace H (Negative) Urine Nitrite Negative (Negative) Ur Leukocyte Esterase Trace H (Negative) Urine RBC 3-5 H (0-2) /HPF Urine WBC 0-5 (0-5) /HPF Ur Squamous Epith Cells 0-2 (0-2) /HPF Urine Bacteria None Seen (None Seen) Hyaline Casts 0-2 (0-2) /LPF COVID-19 (GUERO) (Negative) COVID-19 Clin Com Influenza Type A (MARY) Negative (Negative) Influenza Type B (MARY) Negative (Negative) Influenza A & B Note See Note <Jasson Curry MD - Last Filed: 12/25/22 00:59> Discharge Plan Discharge Clinical Impression: Headache, Elevated liver function tests <MAURO Verma - Last Filed: 12/24/22 20:26> Patient Disposition: Home, Self-Care <MAURO Verma - Last Filed: 12/24/22 20:26> Instructions: General Headache (ED) <MAURO Verma - Last Filed: 12/24/22 20:26> Additional Instructions: You have elevated liver function test stop taking atorvastatin for now follow-up with PCP and recheck liver function test in 2 weeks The headache is likely atypical migraine, take ibuprofenl for pain <MAURO Verma - Last Filed: 12/24/22 20:26> Prescriptions: New ibuprofen 600 mg tablet 600 mg PO Q6H PRN (Reason: pain) Qty: 20 0RF No Action benazepril 20 mg tablet 20 mg PO DAILY Qty: 90 8RF fexofenadine [Jessica Allergy] 180 mg tablet 180 mg PO DAILY atorvastatin 40 mg tablet 40 mg PO DAILY Qty: 90 4RF <MAURO Verma - Last Filed: 12/24/22 20:26>
[2022-12-24 20:56] LABS: MANUAL DIFF FLAG NO
[2022-12-24 20:59] LABS: Basophils Percent Auto 0.6 % (0-2); Eosinophils Absolute Auto 0.4 X10*3/uL (0.0-0.4); Eosinophils Percent Auto 8.6 % (0-4); Hematocrit 42.1 % (42.0-52.0); Hemoglobin 13.8 g/dl (14.0-18.0); Imm Gran Abs Auto 0.01 X10*3/uL (0.00-0.03); Imm Gran Pct Auto 0.2 % (0.0-0.4); Lymphocytes Absolute Auto 1.3 X10*3/uL (1.2-4.9); Lymphocytes Percent Auto 27.1 % (20-40); Mean Corpuscular HGB Conc 32.8 g/dl (31.0-36.0); Mean Corpuscular Hemoglobin 24.8 pg (27.0-33.0); Mean Corpuscular Volume 75.6 fL (80.0-98.0); Monocytes Absolute Auto 0.5 X10*3/uL (0.1-1.2); Monocytes Percent Auto 9.6 % (2-11); Neutrophils Absolute Auto 2.7 x10*3/uL (2.0-8.3); Neutrophils Percent Auto 53.9 % (45-73); Platelet Count 181 X10*3/uL (160-400); Red Blood Count 5.57 X10*6/uL (4.60-5.80); Red Cell Distribution Width 14.7 % (11.0-16.0); White Blood Count 4.9 X10*3/uL (4.8-10.8)
[2022-12-24 21:18] LABS: COVID-19 Test Negative (Negative); IDNOW Serial# 9DB6401D; IDNOW Serial# BCCEAD1C; Influenza A Negative (Negative)
[2022-12-24 21:19] LABS: Influenza B2 Negative (Negative)
[2022-12-24 21:20] LABS: Alanine Aminotransferase 192 U/L (0-40); Albumin Level 3.5 g/dL (3.5-5.0); Alkaline Phosphatase 279 U/L (39-117); Anion Gap 13 (12-20); Aspartate Amino Transferase 117 U/L (5-37); Bilirubin Direct 3.4 mg/dL (0.0-0.5); Bilirubin Total 4.6 mg/dL (0.0-1.0); Blood Urea Nitrogen 18 mg/dL (9-16); Calcium 8.7 mg/dL (8.4-10.2); Carbon Dioxide 26 mmol/L (22-29); Chloride 107 mmol/L (96-108); Creatinine Clr Calc Pharmacy 70.4; Estimated Glomerular Filt Rate > 60; Glucose Random 115 mg/dL (60-115); Magnesium 2.2 mg/dL (1.6-2.6); Potassium 3.9 mmol/L (3.3-5.1); Sodium 142 mmol/L (135-145); Total Protein 6.5 g/dL (6.5-8.0)
[2022-12-24 22:09] VITALS: BP 129/65; PULSE 74; RESP 18; TEMP 36.7; O2SAT 98
[2022-12-24 22:57] LABS: Lipase 39 U/L (8-78)
[2022-12-24] MEDS: Morphine Sulfate 4 MG/ML CARTRIDGE IVPUSH (23:11)
[2022-12-24] MEDS: ondansetron HCL 4 MG/2 ML VIAL IVPUSH (23:12)
[2022-12-24] MEDS: Famotidine/PF 20 MG/2 ML VIAL IVPUSH (23:12)
[2022-12-24] MEDS: 0.9 % Sodium Chloride 1,000 ML 999 ML IV (23:12)
--- NOTE | 2022-12-24 23:24 | PC.NURSE ---
pt change into attire, pt de-stated into 79, respiratory called and Dr Plunkett, pt suctioned and ox-masked increase to 7 liters, Provider called son Gorge and discussed plan of care, pt will remain full code. Will continue to monitor.
--- NOTE | 2022-12-24 23:29 | PC.NURSE ---
pt changed into hospital attire, Iv line placed, medicated per dec, pt being taken to CT scan for further testing, pt is a&o, no sob or chest pain. no sign of distress at this time, will continue to monitor.
[2022-12-24 23:37] VITALS: BP 137/80; PULSE 69; RESP 16; TEMP 37; O2SAT 97
[2022-12-25 00:39] LABS: Appearance Urine Clear; Color Urine Dark Yellow; Glucose Urine UA Negative (Negative); Leukocyte Esterase Urine Trace (Negative); Nitrite Urine Negative (Negative); UMIC TRIGGER UACC YES; Urine Blood Trace (Negative); Urine Ketones Trace mg/dL (Negative); Urine Protein 100 (2+) mg/dL (Neg-Trace)
[2022-12-25 00:44] LABS: Bacteria Urine None Seen (None Seen); Hyaline Casts Urine 0-2 /LPF (0-2); Squamous Epithelial Cell Urine 0-2 /HPF (0-2); WBC Urine 0-5 /HPF (0-5)
--- NOTE | 2022-12-25 01:06 | PC.NURSE ---
pt a&o, no sob or chest pain, Headache has improved. Reviewed discharge instructions, pt verbalized understanding. Pt discharge with no sign of distress.
== END 2022-12-25 02:00 | disposition home or self-care (01) ==
PROVIDERS: Physician Assistant; Emergency Provider Internal Medicine; PCP Internal Medicine
DX: R51.9 Headache, unspecified (principal); R79.89 Other specified abnormal findings of blood chemistry; Z20.822 Contact with and (suspected) exposure to COVID-19; I10 Essential (primary) hypertension; E78.5 Hyperlipidemia, unspecified; Z87.891 Personal history of nicotine dependence; Z79.02 Long term (current) use of antithrombotics/antiplatelets; Z79.899 Other long term (current) drug therapy
CPT/HCPCS: 70450; 74176; 80048; 80076; 81001; 83690; 83735; 85025; 87502; 87635; 96361; 96374; 96375; 99284; J2270; J2405

== ENCOUNTER 2023-01-01 06:08 | Outpatient (REF) | payer MEDICARE, SELFPAY ==
[2023-01-01 08:11] LABS: Cholesterol 243 mg/dL; HDL Cholesterol 40 mg/dL; LDL Cholesterol Calculated 189 mg/dl; Triglycerides 72 mg/dL
== END 2023-01-01 06:09 | disposition home or self-care (01) ==
LOC: HO.LAB 06:08
PROVIDERS: PCP Internal Medicine; Visit Provider Internal Medicine
DX: E78.5 Hyperlipidemia, unspecified (principal)
CPT/HCPCS: 36415; 80061

== ENCOUNTER 2023-01-03 07:04 | Outpatient (REF) | payer MEDICARE, SELFPAY ==
[2023-01-03 08:06] LABS: Alanine Aminotransferase 59 U/L (0-40); Albumin Level 3.7 g/dL (3.5-5.0); Alkaline Phosphatase 216 U/L (39-117); Aspartate Amino Transferase 24 U/L (5-37); Bilirubin Direct 0.5 mg/dL (0.0-0.5); Bilirubin Total 1.2 mg/dL (0.0-1.0); Total Protein 6.8 g/dL (6.5-8.0)
== END 2023-01-03 07:05 | disposition home or self-care (01) ==
LOC: HO.LAB 07:04
PROVIDERS: PCP Internal Medicine; Visit Provider Internal Medicine
DX: R79.89 Other specified abnormal findings of blood chemistry (principal)
CPT/HCPCS: 36415; 80076

== ENCOUNTER 2023-02-25 06:00 | Outpatient (REF) | payer MEDICARE, SELFPAY | END 2023-02-25 06:01 | disposition home or self-care (01) | LOC: HO.LAB 06:00 | PROVIDERS: Urology; PCP Internal Medicine; Visit Provider Internal Medicine | DX: Z12.5 Encounter for screening for malignant neoplasm of prostate (principal); N13.8 Other obstructive and reflux uropathy; N40.1 Benign prostatic hyperplasia with lower urinary tract symptoms | CPT/HCPCS: 36415; 84153 ==

== ENCOUNTER 2023-02-28 09:40 | Outpatient (REF) | payer MEDICARE, SELFPAY ==
[2023-02-28 11:09] LABS: Alanine Aminotransferase 22 U/L (0-40); Alkaline Phosphatase 89 U/L (39-117); Aspartate Amino Transferase 33 U/L (5-37); Bilirubin Direct 0.2 mg/dL (0.0-0.5); Bilirubin Total 0.6 mg/dL (0.0-1.0); Total Protein 6.9 g/dL (6.5-8.0)
== END 2023-02-28 09:41 | disposition home or self-care (01) ==
LOC: HO.LAB 09:40
PROVIDERS: PCP Internal Medicine; Visit Provider Internal Medicine
DX: E78.5 Hyperlipidemia, unspecified (principal); R79.89 Other specified abnormal findings of blood chemistry
CPT/HCPCS: 36415; 80076

== ENCOUNTER 2023-03-12 07:46 | Outpatient (REF) | payer MEDICARE, SELFPAY ==
--- NOTE | ~2023-03-12 | US_ITS ---
EXAMINATION: US ABDOMEN COMPLETE CLINICAL INFORMATION: Elevated liver function tests. COMPARISON: CT abdomen and pelvis 12/24/2022 TECHNIQUE: Real-time imaging of the abdominal viscera. FINDINGS: PANCREAS: Largely obscured by bowel gas. ABDOMINAL AORTA: The proximal, mid, and distal segments are normal in caliber. INFERIOR VENA CAVA: Visualized portions are normal. LIVER: Normal. The liver is normal in size. The liver contour is normal. Parenchymal echogenicity is normal. No focal hepatic lesion. There is no intrahepatic biliary duct dilatation seen. GALLBLADDER: Normal. The gallbladder is physiologically distended without evidence of stones, sludge, polyps, wall thickening or pericholecystic fluid. COMMON BILE DUCT: Normal in caliber measuring 0.2 cm in diameter. RIGHT KIDNEY: Normal. No hydronephrosis. No renal calculi or focal parenchymal lesions. The kidney measures 10.1 cm in maximum dimension. LEFT KIDNEY: Normal. No hydronephrosis. No renal calculi or focal parenchymal lesions. The kidney measures 10.9 cm in maximum dimension. SPLEEN: Normal. The spleen measures 8.3 cm in maximum dimension. FREE FLUID: None. US/US abdomen complete IMPRESSION: Pancreas was largely obscured by bowel gas. Otherwise unremarkable abdominal ultrasound.
== END 2023-03-12 07:47 | disposition home or self-care (01) ==
LOC: HO.US 07:46
PROVIDERS: PCP Internal Medicine; Visit Provider Internal Medicine
DX: R79.89 Other specified abnormal findings of blood chemistry (principal)
CPT/HCPCS: 76700

== ENCOUNTER 2023-06-18 06:32 | Outpatient (REF) | payer MEDICARE, SELFPAY ==
[2023-06-18 07:37] LABS: Cholesterol 208 mg/dL (<200); HDL Cholesterol 72 mg/dL (>40); LDL Cholesterol Calculated 126 mg/dL (<100); Triglycerides 50 mg/dL (<150)
== END 2023-06-18 06:33 | disposition home or self-care (01) ==
LOC: HO.LAB 06:32
PROVIDERS: PCP Internal Medicine; Visit Provider Internal Medicine
DX: E78.5 Hyperlipidemia, unspecified (principal)
CPT/HCPCS: 36415; 80061

== ENCOUNTER 2023-06-25 08:43 | Outpatient (AMB) | payer MEDICARE, SELFPAY ==
--- NOTE | 2023-06-25 08:51 | A.OFFPC_ITS ---
Vital Signs 06/25/23 08:52 Height 6 ft 2 in Weight 179 lb BMI 23.0 BP 110/62 Blood Pressure Location Lt brachial Position Sitting Pulse 83 Pulse Source Pulse Oximeter Pulse Oximetry (%) 97 Oxygen Delivery Method Room Air Intake Visit Reasons: 3 month f/u Intake Note: Patient is here to follow up on HTN, Hyperlipidemia. Lab results Balloon Design Printer Required: No Chief Environmental Commitment Officer: Not Required per policy Accompanied by: Self / Same As Patient Allergies bee pollen [BEE STINGS] Allergy (Mild, Verified 06/25/23 08:52) SWELLING SHELLFISH Allergy (Severe, Uncoded 06/25/23 08:52) SWELLING Medication List - Last Reconciled 06/25/23 by Kleber Billy MD benazepril 20 mg PO DAILY fexofenadine (Jessica Allergy) 180 mg PO DAILY rosuvastatin 20 mg PO DAILY Tobacco use date assessed: 06/25/23 Fall risk assessment: No Falls in past year Last assessed Fall Risk: 06/25/23 Dental Screening Dental Screen Date: 06/25/23 Did you have a dental visit in the last 12 months?: Yes Did you have a dental problem in the last 6 months where you did not have access to dental care?: No Was dental information given to patient?: Patient has dentist HPI 3 month f/u HPI Details HTN and hyperlipidemia on Rx; doing well and compliant [facility] Medical History HTN (hypertension) Hx of pancreatitis Hyperlipidemia Surgical History History of arthroplasty of right hip History of rectal polypectomy History of tonsillectomy Hx of colonoscopy Family History Father Diabetes Hypertension Prostate cancer Mother Alzheimers disease Social History Housing: House Are you a primary career development coordinator/teacher to a significant other at home: No Do you presently have visiting nurse or other home services: No Alcohol intake: former Year quit: 2018 Patient Tobacco Use Status: Former Tobacco user Tobacco use type: Cigarette e-Cigarette/Vaping Use: Never Used Second Hand Smoke Exposure: No service: No Current occupational status: retired Cognitive needs: No Hearing needs: Yes (hearing aides) Vision needs: Yes (glasses) Questionnaire Thrive Questionnaire Date Thrive assessed: 11/28/22 AUDIT C Alcohol Use Questionnaire (AUDIT-C) 1. How often do you have a drink containing alcohol?: Never Total Score: 0 RADHA-7 AMB Questionnaire RADHA-7 Date RADHA - 7 assessed: 11/28/22 Source: Developed by Drs. Michael Anaya, Eladia Wallace, Orlando Coats and colleagues, with an educational rachel from [employer]. Review of Systems Const Denies chills, Denies headache(s) and Denies weight loss ENT Denies headache(s) Card Denies chest pain, Denies syncope, Denies irregular heart rhythm and Denies dyspnea Resp Denies chest congestion, Denies cough and Denies dyspnea GI Denies abdominal pain, Denies change in stool character, Denies nausea and Denies vomiting Musc Denies deformity and Denies joint swelling Neuro Denies syncope and Denies headache(s) Physical exam (Primary Care) Vital Signs: Last Vital Signs Pulse 83 06/25/23 08:52 BP 110/62 06/25/23 08:52 Pulse Ox 97 06/25/23 08:52 Oxygen Delivery Method Room Air 06/25/23 08:52 BMI result Body Mass Index 23.0 Tobacco/Smoking Status: Tobacco use Status Tobacco use date assessed 06/25/23 06/25/23 08:55 Patient Tobacco Use Status Former Tobacco user 06/25/23 08:55 Tobacco use type Cigarette 06/25/23 08:55 e-Cigarette/Vaping Use Never Used 06/25/23 08:55 Thrive Assessment: Date of Thrive Assessment Date Thrive assessed 11/28/22 06/25/23 08:55 Const General: cooperative, comfortable and no acute distress Resp Effort & Inspection: normal respiratory effort Auscultation: clear to auscultation bilaterally Percussion: percussion normal Cardio Jugular venous distension: no JVD Rate: regular rate Rhythm: regular rhythm GI Inspection: Yes normal to inspection Assessment and Plan Assessment & Plan (1) Hypertension: Code(s): I10 - Essential (primary) hypertension Plan: stable; same rx (2) Hyperlipidemia: Code(s): E78.5 - Hyperlipidemia, unspecified Plan: stable; same rx Orders: Orders Comprehensive [place]. Panel Fast Today N28.9 - Disorder of kidney and ureter, unspecified Lipid Panel Today E78.5 - Hyperlipidemia, unspecified Prostate Specific Antigen Scr Today Z00.00 - Encounter for general adult medical examination without abnormal findings Complete Blood Count Auto Diff Today D64.9 - Anemia, unspecified Coding Level of Care Code Est Pt Level 3 (36038) Diagnoses Hypertension I10 Hyperlipidemia E78.5
[2023-06-25 08:52] VITALS: BP 110/62; PULSE 83; O2SAT 97; BMI 23.0
== END 2023-06-25 09:31 | disposition home or self-care (01) ==
PROVIDERS: PCP Internal Medicine; Visit Provider Internal Medicine
DX: I10 Essential (primary) hypertension (principal); E78.5 Hyperlipidemia, unspecified
CPT/HCPCS: 99213

== ENCOUNTER 2023-07-10 13:25 | Outpatient (AMB) | payer MEDICARE, SELFPAY ==
--- NOTE | 2023-07-10 13:32 | MHC.OFFVIS ---
Intake Intake Visit Reasons: 1Y PSA(set) Intake Note: Patient is present for Follow Up PSA/PVR Urology Med: None Antibiotic Allergy:None Blood Thinner: None Pharmacy: [facility] PVR: 33ml Allergies bee pollen [BEE STINGS] Allergy (Mild, Verified 06/25/23 08:52) SWELLING SHELLFISH Allergy (Severe, Uncoded 06/25/23 08:52) SWELLING HPI HPI Comments History of Present Illness Details Lynette is a pleasant male. He is a patient of Dr. Yarbrough. He is seen for the following urologic conditions - lower urinary tract symptoms PSA remains low Maintaining good bladder emptying Making sure he does not drink too much in the evening Follow-up p.r.n. Lower urinary tract symptoms Prior laser prostatectomy 2019 Satisfied with current urinary parameters - Effective stream, good bladder emptying, does have nocturia 1-2 times but drinks liquid until 21:00 - cut back on tea PSA - 2019 2.6, 03/17 2.8, 05/18 3.2, 03/19 3.8 Therapeutic plan continue with yearly follow-up and PSA PFSH Medical History HTN (hypertension) Hx of pancreatitis Hyperlipidemia Surgical History History of arthroplasty of right hip History of rectal polypectomy History of tonsillectomy Hx of colonoscopy Family History Father Diabetes Hypertension Prostate cancer Mother Alzheimers disease Social History Housing: House Are you a primary direct care counselor to a significant other at home: No Do you presently have visiting nurse or other home services: No Alcohol intake: former Year quit: 2018 Patient Tobacco Use Status: Former Tobacco user Tobacco use type: Cigarette e-Cigarette/Vaping Use: Never Used Second Hand Smoke Exposure: No service: No Current occupational status: retired Cognitive needs: No Hearing needs: Yes (hearing aides) Vision needs: Yes (glasses) Review of Systems Const Denies chills and Denies fever(s) Card Reports no additional complaints and Denies syncope Resp Denies cough GI Denies abdominal pain and Denies heartburn Reports as per HPI and Denies change in libido Neuro Denies syncope Psych Denies change in libido Endo Denies change in libido Physical Exam Const General: cooperative, healthy appearing, comfortable and no acute distress Orientation/consciousness: patient oriented x3 HEENT Face and sinus: Yes normal facial exam Mouth: moist mucous membranes Neck Neck: Yes normal visual inspection, Yes full ROM and Yes trachea midline Chest Chest palpation & inspection: normal inspection of the chest Resp Effort & Inspection: normal respiratory effort, able to speak in complete sentences and no respiratory distress GI Inspection: Yes normal to inspection Back/Spine/Pelvis Cervical Spine: normal cervical lordosis Thoracic/Lumbar Spine: thoracic and lumbar spine normal to inspection Skin General skin exam: no rashes or lesions noted Neuro General: patient oriented x3, gait normal, tone normal and moves all extremities Extrem General: Yes normal to inspection and Yes capillary refill normal Office Procedures Post Void Residual Post Residual Void Post Void Residual (PVR): 33 [id number] Void Residual by ultrasound Results AMB Urinalysis, Automated UA Leukoctes 0 Clarita/uL Last Edit by Kassy Henley [facility] on 07/10/23 13:37 UA Nitrite Negative Last Edit by Kassy Henley [facility] on 07/10/23 13:37 UA Urobilinogen 0.2 mg/dL Last Edit by Kassy Henley [facility] on 07/10/23 13:37 UA Protein 0 mg/dL Last Edit by Kassy Henley [facility] on 07/10/23 13:37 UA pH 6.0 Last Edit by Kassy Henley [facility] on 07/10/23 13:37 UA Blood 0 [place]/uL Last Edit by Kassy Henley [facility] on 07/10/23 13:37 UA Specific [place] 1.015 Last Edit by Kassy Henley [facility] on 07/10/23 13:37 UA Ketone Negative Last Edit by Kassy Henley [facility] on 07/10/23 13:37 UA Bilirubin 0 mg/dL Last Edit by Kassy Henley [facility] on 07/10/23 13:37 UA Glucose 0 mg/dL Last Edit by Kassy Henley [facility] on 07/10/23 13:37 Results Reviewed Results Reviewed: Laboratory Last Values Urine pH (Auto) 6.0 07/10/23 13:36 Specific [place] (Auto) 1.015 07/10/23 13:36 Urine Protein (Auto) 0 mg/dL 07/10/23 13:36 Glucose (UA)(Auto) 0 mg/dL 07/10/23 13:36 Urine Ketones (Auto) Negative 07/10/23 13:36 Urine Blood (Auto) 0 [place]/uL 07/10/23 13:36 Urine Nitrite (Auto) Negative 07/10/23 13:36 Urine Bilirubin (Auto) 0 mg/dL 07/10/23 13:36 Urine Urobilinogen (Auto) 0.2 mg/dL 07/10/23 13:36 Leukocyte Esterase (Auto) 0 Clarita/uL 07/10/23 13:36 Assessment & Plan Assessment & Plan (1) BPH w urinary obs/LUTS: Code(s): N40.1 - Benign prostatic hyperplasia with lower urinary tract symptoms; N13.8 - Other obstructive and reflux uropathy Plan P.r.n. follow-up Orders: Orders AMB Post Void Residual by ultrasound Today N13.8 - Other obstructive and reflux uropathy, N40.1 - Benign prostatic hyperplasia with lower urinary tract symptoms AMB Urinalysis Automated Today Z13.9 - Encounter for screening, unspecified Patient Instructions: Imaging studies, laboratory and physical exam results were discussed and reviewed in detail. No major barriers to patient understanding were identified. An opportunity to ask questions regarding the treatment plan was provided. All questions were answered. The patient expressed understanding and agreement with the above treatment plan. The patient is aware they should contact our office by phone for worsening of their current condition or the appearance of new urologic symptoms. Compliance is encouraged with any medications and followup testing that is ordered. It is a privilege to participate in the urologic care of your patient. If you have any questions or concerns regarding treatment for the above conditions, or other urologic issues, please do not hesitate to contact me. The office telephone contact is [phone]. This note is constructed using voice recognition software. While every effort has been made to ensure accuracy records assistant errors may have been included. Yours sincerely, Dr Matthias Gray MD, [facility] - Urology Providers of Expert, Compassionate Care for the Genitourinary System Coding Level of Care Code Est Pt Level 4 (82026) Diagnoses BPH w urinary obs/LUTS N40.1; N13.8 CPT Codes Post Residual Void - PVR CPT Code: 93372-[id number] Void Residual by ultrasound ([id number])
== END 2023-07-10 13:51 | disposition home or self-care (01) ==
PROVIDERS: PCP Internal Medicine; Visit Provider Urology
DX: N40.1 Benign prostatic hyperplasia with lower urinary tract symptoms (principal); N13.8 Other obstructive and reflux uropathy; Z13.9 Encounter for screening, unspecified
CPT/HCPCS: 99213

== ENCOUNTER → 2023-07-10 13:25 | Outpatient (BNVA) | payer MEDICARE, SELFPAY | PROVIDERS: Visit Provider Urology | DX: N40.1 Benign prostatic hyperplasia with lower urinary tract symptoms (principal); N13.8 Other obstructive and reflux uropathy | CPT/HCPCS: 51798; 81003; 99212 ==

== ENCOUNTER 2023-09-23 06:06 | Outpatient (REF) | payer MEDICARE, SELFPAY ==
[2023-09-23 06:22] LABS: MANUAL DIFF FLAG NO
[2023-09-23 07:33] LABS: Basophils Absolute Auto 0.1 X10*3/uL (0.0-0.2); Eosinophils Absolute Auto 0.3 X10*3/uL (0.0-0.4); Eosinophils Percent Auto 5.5 % (0-4); Hematocrit 44.3 % (42.0-52.0); Hemoglobin 14.3 g/dl (14.0-18.0); Imm Gran Abs Auto 0.01 X10*3/uL (0.00-0.03); Imm Gran Pct Auto 0.2 % (0.0-0.4); Lymphocytes Absolute Auto 2.4 X10*3/uL (1.2-4.9); Lymphocytes Percent Auto 41.1 % (20-40); Mean Corpuscular HGB Conc 32.3 g/dl (31.0-36.0); Mean Corpuscular Hemoglobin 25.2 pg (27.0-33.0); Mean Corpuscular Volume 78.1 fL (80.0-98.0); Mean Platelet Volume 9.2 fL (9.4-12.4); Monocytes Absolute Auto 0.5 X10*3/uL (0.1-1.2); Monocytes Percent Auto 8.1 % (2-11); Neutrophils Absolute Auto 2.6 x10*3/uL (2.0-8.3); Neutrophils Percent Auto 44.1 % (45-73); Platelet Count 239 X10*3/uL (160-400); Red Blood Count 5.67 X10*6/uL (4.60-5.80); Red Cell Distribution Width 15.4 % (11.0-16.0); White Blood Count 5.8 X10*3/uL (4.8-10.8)
[2023-09-23 07:56] LABS: Alanine Aminotransferase 26 U/L (0-40); Albumin Level 4.1 g/dL (3.5-5.0); Alkaline Phosphatase 69 U/L (39-117); Anion Gap 11 (12-20); Aspartate Amino Transferase 24 U/L (5-37); Bilirubin Total 0.5 mg/dL (0.0-1.0); Blood Urea Nitrogen 18 mg/dL (9-16); Calcium 9.8 mg/dL (8.4-10.2); Carbon Dioxide 29 mmol/L (22-29); Chloride 107 mmol/L (96-108); Cholesterol 207 mg/dL (<200); Estimated Glomerular Filt Rate > 60; Glucose Fasting 90 mg/dL (60-99); HDL Cholesterol 72 mg/dL (>40); LDL Cholesterol Calculated 123 mg/dL (<100); Potassium 4.3 mmol/L (3.3-5.1); Sodium 143 mmol/L (135-145); Total Protein 7.4 g/dL (6.5-8.0); Triglycerides 61 mg/dL (<150)
[2023-09-23 08:16] LABS: Prostate Specific Antigen Scr 5.24 ng/mL (<0.05-4.0)
== END 2023-09-23 06:07 | disposition home or self-care (01) ==
LOC: HO.LAB 06:06
PROVIDERS: PCP Internal Medicine; Visit Provider Internal Medicine
DX: Z00.00 Encounter for general adult medical examination without abnormal findings (principal); D64.9 Anemia, unspecified; N28.9 Disorder of kidney and ureter, unspecified; E78.5 Hyperlipidemia, unspecified; Z12.5 Encounter for screening for malignant neoplasm of prostate
CPT/HCPCS: 36415; 80053; 80061; 84153; 85025

== ENCOUNTER 2023-09-25 10:18 | Outpatient (AMB) | payer MEDICARE, SELFPAY ==
[2023-09-25 10:20] VITALS: BP 140/70; PULSE 72; O2SAT 98; BMI 23.7
--- NOTE | 2023-09-25 10:20 | MHC.PC.OV ---
Vital Signs 09/25/23 10:20 Height 6 ft 2 in Weight 185 lb BMI 23.7 BP 140/70 H Blood Pressure Location Lt brachial Position Sitting Pulse 72 Pulse Source Pulse Oximeter Pulse Oximetry (%) 98 Oxygen Delivery Method Room Air Intake Visit Reasons: 3mth f/u Respiratory Care Specialist Required: No Hr Payroll Coordinator: Not Required per policy Accompanied by: Self / Same As Patient Allergies bee pollen [BEE STINGS] Allergy (Mild, Verified 09/25/23 10:20) SWELLING SHELLFISH Allergy (Severe, Uncoded 09/25/23 10:20) SWELLING Medication List - Last Reconciled 09/25/23 by Kleber Billy MD benazepril 20 mg PO DAILY fexofenadine (Jessica Allergy) 180 mg PO DAILY rosuvastatin 20 mg PO DAILY Tobacco use date assessed: 06/25/23 Fall risk assessment: No Falls in past year Last assessed Fall Risk: 09/25/23 Dental Screening Dental Screen Date: 09/25/23 Did you have a dental visit in the last 12 months?: Yes Did you have a dental problem in the last 6 months where you did not have access to dental care?: No Was dental information given to patient?: Patient has dentist HPI 3mth f/u HPI Details HTN hyperlip and BPH; stable and compliant [facility] Medical History Hx of pancreatitis Hyperlipidemia HTN (hypertension) Surgical History Hx of colonoscopy History of arthroplasty of right hip History of rectal polypectomy History of tonsillectomy Family History Father Diabetes Hypertension Prostate cancer Mother Alzheimers disease Social History Housing: House Are you a primary care services manager to a significant other at home: No Do you presently have visiting nurse or other home services: No Alcohol intake: former Year quit: 2018 Patient Tobacco Use Status: Former Tobacco user Tobacco use type: Cigarette e-Cigarette/Vaping Use: Never Used Second Hand Smoke Exposure: No service: No Current occupational status: retired Cognitive needs: No Hearing needs: Yes (hearing aides) Vision needs: Yes (glasses) Questionnaire Thrive Questionnaire Date Thrive assessed: 11/28/22 RADAH-7 AMB Questionnaire RADHA-7 Date RADHA - 7 assessed: 11/28/22 Source: Developed by Drs. Michael Anaya, Eladia Wallace, Orlando Coats and colleagues, with an educational rachel from [employer]. Review of Systems Const Denies chills, Denies headache(s) and Denies weight loss ENT Denies headache(s) Card Denies chest pain, Denies syncope, Denies irregular heart rhythm and Denies dyspnea Resp Denies chest congestion, Denies cough and Denies dyspnea GI Denies abdominal pain, Denies change in stool character, Denies nausea and Denies vomiting Musc Denies deformity and Denies joint swelling Neuro Denies syncope and Denies headache(s) Physical exam (Primary Care) Vital Signs: Last Vital Signs Pulse 72 09/25/23 10:20 BP 140/70 H 09/25/23 10:20 Pulse Ox 98 09/25/23 10:20 Oxygen Delivery Method Room Air 09/25/23 10:20 BMI result Body Mass Index 23.7 Tobacco/Smoking Status: Tobacco use Status Tobacco use date assessed 06/25/23 09/25/23 10:25 Patient Tobacco Use Status Former Tobacco user 09/25/23 10:25 Tobacco use type Cigarette 09/25/23 10:25 e-Cigarette/Vaping Use Never Used 09/25/23 10:25 Thrive Assessment: Date of Thrive Assessment Date Thrive assessed 11/28/22 09/25/23 10:25 Const General: cooperative, comfortable, no acute distress and alert Neck Neck: Yes no lymphadenopathy Thyroid: Thyroid normal Resp Effort & Inspection: normal respiratory effort Auscultation: clear to auscultation bilaterally Percussion: percussion normal Cardio Jugular venous distension: no JVD Palpation: normal PMI Rate: regular rate Rhythm: regular rhythm Heart sounds: S1 normal heart sound present and S2 normal heart sound present GI Inspection: Yes normal to inspection Palpation (GI): No hepatosplenomegaly present Skin General skin exam: no rashes or lesions noted Extrem General: Yes no clubbing, cyanosis or edema Assessment and Plan Assessment & Plan (1) Hypertension: Code(s): I10 - Essential (primary) hypertension Plan: stable; same rx (2) Hyperlipidemia: Code(s): E78.5 - Hyperlipidemia, unspecified Plan: stable; same rx (3) BPH w urinary obs/LUTS: Code(s): N40.1 - Benign prostatic hyperplasia with lower urinary tract symptoms; N13.8 - Other obstructive and reflux uropathy Plan: monitor PSA Orders: Orders Prostate Specific Antigen Scr Today Z00.00 - Encounter for general adult medical examination without abnormal findings Lipid Panel Today E78.5 - Hyperlipidemia, unspecified Coding Level of Care Code Est Pt Level 4 (72520) Diagnoses Hypertension I10 Hyperlipidemia E78.5 BPH w urinary obs/LUTS N40.1; N13.8
== END 2023-09-25 10:33 | disposition home or self-care (01) ==
PROVIDERS: PCP Internal Medicine; Visit Provider Internal Medicine
DX: I10 Essential (primary) hypertension (principal); E78.5 Hyperlipidemia, unspecified; N40.1 Benign prostatic hyperplasia with lower urinary tract symptoms; N13.8 Other obstructive and reflux uropathy
CPT/HCPCS: 99214

== ENCOUNTER 2023-11-26 06:27 | Outpatient (REF) | payer MEDICARE, SELFPAY ==
[2023-11-26 07:49] LABS: Cholesterol 184 mg/dL (<200); HDL Cholesterol 75 mg/dL (>40); LDL Cholesterol Calculated 99 mg/dL (<100); Triglycerides 52 mg/dL (<150)
== END 2023-11-26 06:28 | disposition home or self-care (01) ==
LOC: HO.LAB 06:27
PROVIDERS: PCP Internal Medicine; Visit Provider Internal Medicine
DX: Z00.00 Encounter for general adult medical examination without abnormal findings (principal); E78.5 Hyperlipidemia, unspecified; Z12.5 Encounter for screening for malignant neoplasm of prostate
CPT/HCPCS: 36415; 80061; 84153

== ENCOUNTER 2023-12-02 08:49 | Outpatient (AMB) | payer MEDICARE, SELFPAY ==
--- NOTE | 2023-12-02 08:55 | MHC.PC.OV ---
Vital Signs 12/02/23 08:56 Height 6 ft 2 in Weight 187 lb BMI 24.0 BP 112/64 Blood Pressure Location Lt brachial Position Sitting Pulse 73 Pulse Source Pulse Oximeter Pulse Oximetry (%) 97 Oxygen Delivery Method Room Air Intake Visit Reasons: Annual Exam Director Oracle Required: No Creative Arts Music Therapist: Not Required per policy Accompanied by: Self / Same As Patient Allergies bee pollen [BEE STINGS] Allergy (Mild, Verified 12/02/23 08:56) SWELLING SHELLFISH Allergy (Severe, Uncoded 12/02/23 08:56) SWELLING Medication List - Last Reconciled 12/02/23 by Kleber Billy MD benazepril 20 mg PO DAILY fexofenadine (Jessica Allergy) 180 mg PO DAILY rosuvastatin 20 mg PO DAILY Tobacco use date assessed: 12/02/23 Fall risk assessment: No Falls in past year Last assessed Fall Risk: 12/02/23 Dental Screening Dental Screen Date: 12/02/23 Did you have a dental visit in the last 12 months?: Yes Did you have a dental problem in the last 6 months where you did not have access to dental care?: No Was dental information given to patient?: Patient has dentist HPI Annual Exam HPI Details HTN and hyperlip on rx; doing well PFSH Medical History Hx of pancreatitis Hyperlipidemia HTN (hypertension) Surgical History Hx of colonoscopy History of arthroplasty of right hip History of rectal polypectomy History of tonsillectomy Family History Father Diabetes Hypertension Prostate cancer Mother Alzheimers disease Social History Housing: House Are you a primary health care technician to a significant other at home: No Do you presently have visiting nurse or other home services: No Alcohol intake: former Year quit: 2018 Patient Tobacco Use Status: Former Tobacco user Tobacco use type: Cigarette e-Cigarette/Vaping Use: Never Used Second Hand Smoke Exposure: No service: No Current occupational status: retired Cognitive needs: No Hearing needs: Yes (hearing aides) Vision needs: Yes (glasses) Questionnaire PHQ-9 Over the last 2 weeks, how often have you been bothered by any of the following problems? 1. Little interest or pleasure in doing things: not at all 2. Feeling down, depressed, or hopeless: not at all 3. Trouble falling or staying asleep, or sleeping too much: not at all 4. Feeling tired or having little energy: not at all 5. Poor appetite or overeating: not at all 6. Feeling bad about yourself - or that you are a failure or have let yourself or your family down: not at all 7. Trouble concentrating on things, such as reading the newspaper or watching television: not at all 8. Moving or speaking so slowly that other people could have noticed. Or the opposite - being so fidgety or restless that you have been moving around a lot more than usual: not at all 9. Thoughts that you would be better off or of hurting yourself in some way: not at all Total score: 0 Depression Screening Interpretation: Negative Depression Screening Done: Yes 06305 - PHQ-9 Billing: Yes Source: Developed by Drs. Michael Anyaa, Eladia Wallace, Orlando Coats and colleagues, with an educational rachel from [employer]. Thrive Questionnaire Date Thrive assessed: 12/02/23 I am a: Patient What is your living situation today?: I have a steady place to live Within the past 12 months, did the food you bought not last and you didn't have the money to get more?: Never true Within the past 12 months, did you worry whether your food would run out before you got money to buy more?: Never true Do you have trouble paying for medicines?: No Do you have trouble getting transportation to medical appointments?: No Do you have trouble paying your heating and electricity bill?: No Do you have trouble taking care of your child, family member or friend?: No Do you have trouble with day-to-day activities such as bathing, preparing meals, shopping, managing finances, etc.?: No Are you currently unemployed and looking for a job?: No Are you interested in more education?: No THRIVE Score: 0 AUDIT C Alcohol Use Questionnaire (AUDIT-C) 1. How often do you have a drink containing alcohol?: Never Total Score: 0 RADHA-7 AMB Questionnaire RADHA-7 Date RADHA - 7 assessed: 12/02/23 Feeling nervous, anxious, or on edge: 0 = Not at all Not being able to stop or control worryin = Not at all Worrying too much about different things: 0 = Not at all Trouble relaxin = Not at all Being so restless that it is hard to sit still: 0 = Not at all Becoming easily annoyed or irritable: 0 = Not at all Feeling afraid as if something awful might happen: 0 = Not at all Total RADHA-7 score (0-4 normal; 5-9 mild; 10-14 moderate; 15-21 severe): 0 Source: Developed by Drs. Michael Anaya, Eladia Wallace, Orlando Coats and colleagues, with an educational rachel from [employer]. RADHA-7 Assessment Billing RADHA-7 Assessment Tool: RADHA-7 Assessment 26849 Review of Systems Const Denies chills, Denies fatigue, Denies headache(s) and Denies weight loss Eyes Denies change in vision, Denies diplopia and Denies eye pain ENT Denies vertigo, Denies dizziness, Denies headache(s) and Denies nasal discharge Card Denies chest pain, Denies rapid heart rate and Denies dyspnea on exertion Resp Denies chest congestion, Denies cough, Denies pain with cough and Denies dyspnea on exertion GI Denies abdominal pain, Denies hematochezia and Denies change in bowel habits Musc Denies myalgias, Denies arthralgias and Denies joint swelling Skin/Breast Denies lesions and Denies unusual bruising Neuro Denies vertigo, Denies dizziness, Denies headache(s) and Denies focal weakness Endo Denies fatigue Physical exam (Primary Care) Vital Signs: Last Vital Signs Pulse 73 12/02/23 08:56 BP 112/64 12/02/23 08:56 Pulse Ox 97 12/02/23 08:56 Oxygen Delivery Method Room Air 12/02/23 08:56 BMI result Body Mass Index 24.0 Tobacco/Smoking Status: Tobacco use Status Tobacco use date assessed 12/02/23 12/02/23 08:57 Patient Tobacco Use Status Former Tobacco user 12/02/23 08:57 Tobacco use type Cigarette 12/02/23 08:57 e-Cigarette/Vaping Use Never Used 12/02/23 08:57 PHQ-9: PHQ-9 Score PHQ-9: Total score 0 12/02/23 08:57 Depression Screening Interpretation: Negative Thrive Assessment: Date of Thrive Assessment Date Thrive assessed 12/02/23 12/02/23 08:57 Const General: cooperative, healthy appearing and no acute distress Orientation/consciousness: oriented to person, oriented to place and oriented to time HENMT Head: Yes normal to inspection, Yes normocephalic and Yes atraumatic Mouth: Normal oral and palatal mucosa present and tongue normal Throat: Yes posterior oropharynx normal and Yes uvula midline Eyes General: appearance normal, both eyes and all related structures Neck Neck: Yes normal visual inspection, Yes full ROM and Yes no lymphadenopathy Thyroid: Thyroid normal Carotids: normal carotid upstroke Chest Chest palpation & inspection: normal inspection of the chest Resp Effort & Inspection: normal respiratory effort and able to speak in complete sentences Auscultation: clear to auscultation bilaterally Cardio Jugular venous distension: no JVD Palpation: normal PMI Rate: regular rate Rhythm: regular rhythm Heart sounds: S1 normal heart sound present and S2 normal heart sound present GI Inspection: Yes normal to inspection Palpation (GI): Soft to palpation and No hepatosplenomegaly present Auscultation: normal bowel sounds General: Yes no CVA tenderness Back/Spine/Pelvis Back: no CVA tenderness Skin General skin exam: no rashes or lesions noted Neuro General: oriented to person, oriented to place and oriented to time Extrem General: Yes normal to inspection and Yes full ROM Assessment and Plan Assessment & Plan (1) Annual physical exam: Code(s): Z00.00 - Encounter for general adult medical examination without abnormal findings Plan: stable; do labs (2) Hyperlipidemia: Code(s): E78.5 - Hyperlipidemia, unspecified Plan: stable; same rx (3) Hypertension: Code(s): I10 - Essential (primary) hypertension Plan: stable; same rx Orders: Orders Comprehensive [place]. Panel Fast Today N28.9 - Disorder of kidney and ureter, unspecified Lipid Panel Today E78.5 - Hyperlipidemia, unspecified Complete Blood Count Auto Diff Today D64.9 - Anemia, unspecified Coding Level of Care Code Est Pt Prev Care >65y(82134) Diagnoses Annual physical exam Z00.00 Hyperlipidemia E78.5 Hypertension I10 Additional Codes RADHA-7 Assessment Billing - RADHA-7 Assessment Tool: RADHA-7 Assessment [id number] ([id number])
[2023-12-02 08:56] VITALS: BP 112/64; PULSE 73; O2SAT 97; BMI 24.0
== END 2023-12-02 09:13 | disposition home or self-care (01) ==
PROVIDERS: Visit Provider Internal Medicine
DX: Z00.00 Encounter for general adult medical examination without abnormal findings (principal); E78.5 Hyperlipidemia, unspecified; I10 Essential (primary) hypertension
CPT/HCPCS: 99397

== ENCOUNTER 2024-02-13 06:11 | Outpatient (REF) | payer MEDICARE, SELFPAY ==
[2024-02-13 06:22] LABS: MANUAL DIFF FLAG NO
[2024-02-13 07:42] LABS: Basophils Percent Auto 0.9 % (0-2); Eosinophils Absolute Auto 0.2 X10*3/uL (0.0-0.4); Eosinophils Percent Auto 4.5 % (0-4); Hematocrit 42.3 % (42.0-52.0); Hemoglobin 13.7 g/dl (14.0-18.0); Imm Gran Abs Auto 0.01 X10*3/uL (0.00-0.03); Imm Gran Pct Auto 0.2 % (0.0-0.4); Lymphocytes Absolute Auto 2.3 X10*3/uL (1.2-4.9); Mean Corpuscular HGB Conc 32.4 g/dl (31.0-36.0); Mean Corpuscular Hemoglobin 25.1 pg (27.0-33.0); Mean Corpuscular Volume 77.5 fL (80.0-98.0); Monocytes Absolute Auto 0.5 X10*3/uL (0.1-1.2); Neutrophils Absolute Auto 1.6 x10*3/uL (2.0-8.3); Neutrophils Percent Auto 34.4 % (45-73); Platelet Count 227 X10*3/uL (160-400); Red Blood Count 5.46 X10*6/uL (4.60-5.80); Red Cell Distribution Width 15.7 % (11.0-16.0); White Blood Count 4.6 X10*3/uL (4.8-10.8)
[2024-02-13 08:13] LABS: Alanine Aminotransferase 34 U/L (0-40); Alkaline Phosphatase 66 U/L (39-117); Anion Gap 11 (12-20); Aspartate Amino Transferase 33 U/L (5-37); Bilirubin Total 0.4 mg/dL (0.0-1.0); Blood Urea Nitrogen 15 mg/dL (9-16); Calcium 9.6 mg/dL (8.4-10.2); Carbon Dioxide 26 mmol/L (22-29); Chloride 108 mmol/L (96-108); Cholesterol 189 mg/dL (<200); Estimated Glomerular Filt Rate > 60; Glucose Fasting 87 mg/dL (60-99); HDL Cholesterol 80 mg/dL (>40); LDL Cholesterol Calculated 100 mg/dL (<100); Potassium 4.8 mmol/L (3.3-5.1); Sodium 140 mmol/L (135-145); Total Protein 7.2 g/dL (6.5-8.0); Triglycerides 48 mg/dL (<150)
== END 2024-02-13 06:12 | disposition home or self-care (01) ==
LOC: HO.LAB 06:11
PROVIDERS: PCP Internal Medicine; Visit Provider Internal Medicine
DX: D64.9 Anemia, unspecified (principal); E78.5 Hyperlipidemia, unspecified; N28.9 Disorder of kidney and ureter, unspecified
CPT/HCPCS: 36415; 80053; 80061; 85025

== ENCOUNTER 2024-03-02 08:10 | Outpatient (AMB) | payer MEDICARE, SELFPAY ==
[2024-03-02 08:34] VITALS: BP 122/72; PULSE 83; O2SAT 98; BMI 23.1
--- NOTE | 2024-03-02 08:34 | MHC.PC.OV ---
Vital Signs 03/02/24 08:34 Height 6 ft 2 in Weight 180 lb BMI 23.1 BP 122/72 Blood Pressure Location Lt brachial Position Sitting Pulse 83 Pulse Source Pulse Oximeter Pulse Oximetry (%) 98 Oxygen Delivery Method Room Air Intake Visit Reasons: 3mth f/u Supervisor Respiratory Required: No Rubber Cutter: Not Required per policy Accompanied by: Self / Same As Patient Allergies bee pollen [BEE STINGS] Allergy (Mild, Verified 03/02/24 08:34) SWELLING SHELLFISH Allergy (Severe, Uncoded 03/02/24 08:34) SWELLING Medication List - Last Reconciled 03/02/24 by Kleber Billy MD benazepril 20 mg PO DAILY fexofenadine (Jessica Allergy) 180 mg PO DAILY rosuvastatin 20 mg PO DAILY Tobacco use date assessed: 12/02/23 Fall risk assessment: No Falls in past year Last assessed Fall Risk: 03/02/24 Dental Screening Dental Screen Date: 12/02/23 HPI 3mth f/u HPI Details HTN on Rx; doing well and compliant [facility] Medical History Hx of pancreatitis Hyperlipidemia HTN (hypertension) Surgical History Hx of colonoscopy History of arthroplasty of right hip History of rectal polypectomy History of tonsillectomy Family History Father Diabetes Hypertension Prostate cancer Mother Alzheimers disease Social History Housing: House Are you a primary aged or disabled care worker to a significant other at home: No Do you presently have visiting nurse or other home services: No Alcohol intake: former Year quit: 2018 Patient Tobacco Use Status: Former Tobacco user Tobacco use type: Cigarette e-Cigarette/Vaping Use: Never Used Second Hand Smoke Exposure: No service: No Current occupational status: retired Cognitive needs: No Hearing needs: Yes (hearing aides) Vision needs: Yes (glasses) Questionnaire Thrive Questionnaire Date Thrive assessed: 12/02/23 RADHA-7 AMB Questionnaire RADHA-7 Date RADHA - 7 assessed: 12/02/23 Source: Developed by Drs. Michael Anaya, Eladia Wallace, Orlando Coats and colleagues, with an educational rachel from [email or web address]. Review of Systems Const Denies chills, Denies headache(s) and Denies weight loss ENT Denies headache(s) Card Denies chest pain, Denies syncope, Denies irregular heart rhythm and Denies dyspnea Resp Denies chest congestion, Denies cough and Denies dyspnea GI Denies abdominal pain, Denies change in stool character, Denies nausea and Denies vomiting Musc Denies deformity and Denies joint swelling Neuro Denies syncope and Denies headache(s) Physical exam (Primary Care) Vital Signs: Last Vital Signs Pulse 83 03/02/24 08:34 BP 122/72 03/02/24 08:34 Pulse Ox 98 03/02/24 08:34 Oxygen Delivery Method Room Air 03/02/24 08:34 BMI result Body Mass Index 23.1 Tobacco/Smoking Status: Tobacco use Status Tobacco use date assessed 12/02/23 03/02/24 08:35 Patient Tobacco Use Status Former Tobacco user 03/02/24 08:35 Tobacco use type Cigarette 03/02/24 08:35 e-Cigarette/Vaping Use Never Used 03/02/24 08:35 Thrive Assessment: Date of Thrive Assessment Date Thrive assessed 12/02/23 03/02/24 08:35 Const General: cooperative, comfortable, no acute distress and alert Neck Neck: Yes no lymphadenopathy Thyroid: Thyroid normal Resp Effort & Inspection: normal respiratory effort Auscultation: clear to auscultation bilaterally Percussion: percussion normal Cardio Jugular venous distension: no JVD Palpation: normal PMI Rate: regular rate Rhythm: regular rhythm Heart sounds: S1 normal heart sound present and S2 normal heart sound present GI Inspection: Yes normal to inspection Palpation (GI): No hepatosplenomegaly present Skin General skin exam: no rashes or lesions noted Extrem General: Yes no clubbing, cyanosis or edema Assessment and Plan Assessment & Plan (1) Hypertension: Code(s): I10 - Essential (primary) hypertension Plan: stable ;same rx Orders: Orders Lipid Panel Today Z13.220 - Encounter for screening for lipoid disorders Coding Level of Care Code Est Pt Level 3 (04621) Diagnoses Hypertension I10
== END 2024-03-02 08:45 | disposition home or self-care (01) ==
PROVIDERS: PCP Internal Medicine; Visit Provider Internal Medicine
DX: I10 Essential (primary) hypertension (principal)
CPT/HCPCS: 99213

== ENCOUNTER 2024-06-30 06:24 | Outpatient (REF) | payer MEDICARE, SELFPAY ==
[2024-06-30 07:52] LABS: Cholesterol 199 mg/dL (<200); HDL Cholesterol 93 mg/dL (>40); LDL Cholesterol Calculated 95 mg/dL (<100); Triglycerides 59 mg/dL (<150)
== END 2024-06-30 06:25 | disposition home or self-care (01) ==
LOC: HO.LAB 06:24
PROVIDERS: PCP Internal Medicine; Visit Provider Internal Medicine
DX: Z13.220 Encounter for screening for lipoid disorders (principal)
CPT/HCPCS: 36415; 80061

== ENCOUNTER 2024-07-03 08:17 | Outpatient (AMB) | payer MEDICARE, SELFPAY ==
[2024-07-03 08:37] VITALS: BP 122/72; PULSE 66; O2SAT 99; BMI 23.6
--- NOTE | 2024-07-03 08:37 | A.OFFPC_ITS ---
Vital Signs 07/03/24 08:37 Height 6 ft 2 in Weight 184 lb BMI 23.6 BP 122/72 Blood Pressure Location Lt brachial Position Sitting Pulse 66 Pulse Source Pulse Oximeter Pulse Oximetry (%) 99 Oxygen Delivery Method Room Air Intake Visit Reasons: 4mth f/u Clinical Fellow Required: No Accompanied by: Self / Same As Patient Allergies bee pollen [BEE STINGS] Allergy (Mild, Verified 07/03/24 08:39) SWELLING SHELLFISH Allergy (Severe, Uncoded 07/03/24 08:39) SWELLING Medication List - Last Reconciled 07/03/24 by Kleber Billy MD amlodipine 5 mg PO DAILY benazepril 20 mg PO DAILY fexofenadine (Jessica Allergy) 180 mg PO DAILY rosuvastatin 20 mg PO DAILY Tobacco use date assessed: 12/02/23 Fall risk assessment: 1 Fall in past year Last assessed Fall Risk: 07/03/24 Dental Screening Dental Screen Date: 12/02/23 HPI 4mth f/u HPI Details hypertension f/u; doing well; compliant [facility] Medical History Hx of pancreatitis Hyperlipidemia HTN (hypertension) Surgical History Hx of colonoscopy History of arthroplasty of right hip History of rectal polypectomy History of tonsillectomy Family History Father Diabetes Hypertension Prostate cancer Mother Alzheimers disease Social History Housing: House Are you a primary coronary care unit nurse to a significant other at home: No Do you presently have visiting nurse or other home services: No Alcohol intake: former Year quit: 2018 Patient Tobacco Use Status: Former Tobacco user Tobacco use type: Cigarette e-Cigarette/Vaping Use: Never Used Second Hand Smoke Exposure: No service: No Current occupational status: retired Cognitive needs: No Hearing needs: Yes (hearing aides) Vision needs: Yes (glasses) Questionnaire PHQ-9 Over the last 2 weeks, how often have you been bothered by any of the following problems? 1. Little interest or pleasure in doing things: not at all 2. Feeling down, depressed, or hopeless: not at all 3. Trouble falling or staying asleep, or sleeping too much: not at all 4. Feeling tired or having little energy: not at all 5. Poor appetite or overeating: not at all 6. Feeling bad about yourself - or that you are a failure or have let yourself or your family down: not at all 7. Trouble concentrating on things, such as reading the newspaper or watching television: not at all 8. Moving or speaking so slowly that other people could have noticed. Or the opposite - being so fidgety or restless that you have been moving around a lot more than usual: not at all 9. Thoughts that you would be better off or of hurting yourself in some way: not at all Total score: 0 Depression Screening Interpretation: Negative Depression Screening Done: Yes 21858 - PHQ-9 Billing: Yes Source: Developed by Drs. Michael Anaya, Eladia Wallace, Orlando Coats and colleagues, with an educational rachel from [employer]. Thrive Questionnaire Date Thrive assessed: 12/02/23 AUDIT C Alcohol Use Questionnaire (AUDIT-C) 1. How often do you have a drink containing alcohol?: Never Total Score: 0 RADHA-7 AMB Questionnaire RADHA-7 Date RADHA - 7 assessed: 12/02/23 Source: Developed by Drs. Michael Anaya, Eladia Wallace, Orlando Coats and colleagues, with an educational rachel from [employer]. Review of Systems Const Denies chills, Denies headache(s) and Denies weight loss ENT Denies headache(s) Card Denies chest pain, Denies syncope, Denies irregular heart rhythm and Denies dyspnea Resp Denies chest congestion, Denies cough and Denies dyspnea GI Denies abdominal pain, Denies change in stool character, Denies nausea and Denies vomiting Musc Denies deformity and Denies joint swelling Neuro Denies syncope and Denies headache(s) Physical exam (Primary Care) Vital Signs: Last Vital Signs Pulse 66 07/03/24 08:37 BP 122/72 07/03/24 08:37 Pulse Ox 99 07/03/24 08:37 Oxygen Delivery Method Room Air 07/03/24 08:37 BMI result Body Mass Index 23.6 Tobacco/Smoking Status: Tobacco use Status Tobacco use date assessed 12/02/23 07/03/24 08:42 Patient Tobacco Use Status Former Tobacco user 07/03/24 08:42 Tobacco use type Cigarette 07/03/24 08:42 e-Cigarette/Vaping Use Never Used 07/03/24 08:42 PHQ-9: PHQ-9 Score PHQ-9: Total score 0 07/03/24 08:42 Depression Screening Interpretation: Negative Thrive Assessment: Date of Thrive Assessment Date Thrive assessed 12/02/23 07/03/24 08:42 Const General: cooperative, comfortable, no acute distress and alert Neck Neck: Yes no lymphadenopathy Thyroid: Thyroid normal Resp Effort & Inspection: normal respiratory effort Auscultation: clear to auscultation bilaterally Percussion: percussion normal Cardio Jugular venous distension: no JVD Palpation: normal PMI Rate: regular rate Rhythm: regular rhythm Heart sounds: S1 normal heart sound present and S2 normal heart sound present GI Inspection: Yes normal to inspection Palpation (GI): No hepatosplenomegaly present Skin General skin exam: no rashes or lesions noted Extrem General: Yes no clubbing, cyanosis or edema Assessment and Plan Assessment & Plan (1) Hypertension: Code(s): I10 - Essential (primary) hypertension Plan: stable; same rx Orders: Orders Lipid Panel Today Z13.220 - Encounter for screening for lipoid disorders Complete Blood Count Auto Diff Today Z13.0 - Encounter for screening for diseases of the blood and blood-forming organs and certain disorders involving the immune mechanism Prostate Specific Antigen Scr Today Z00.00 - Encounter for general adult medical examination without abnormal findings Comprehensive [place]. Panel Fast Today Z13.9 - Encounter for screening, unspecified Coding Level of Care Code Est Pt Level 3 (38790) Diagnoses Hypertension I10
== END 2024-07-03 08:51 | disposition home or self-care (01) ==
PROVIDERS: PCP Internal Medicine; Visit Provider Internal Medicine
DX: I10 Essential (primary) hypertension (principal)
CPT/HCPCS: 99213

== ENCOUNTER 2024-11-02 06:35 | Outpatient (REF) | payer MEDICARE, SELFPAY ==
--- OUTSIDE RECORDS SUMMARY | 2024-11-02 06:38 | XMS_ITS | Encounter Summary ---
Author Name [facility] [place] Organization [place] Address [address] [place] [address] Care Team Providers Care Green Belt Name Role Phone YANETH JOE Primary Care Provider Finesse lopez Insurance Providers: All historical and current Section Date Range: From patient's date of to the date document was created. This section includes the names of all active insurance providers for the patient. Insurance Provider Type of Coverage Plan Name Start of Policy Coverage End of Policy Coverage Group Number Member ID Insurance Provider's Telephone Number Policy 's Name Patient's Relationship to Policy [facility] (WNR) MEDICARE ADVANTAGE [facility] (WNR) Oct 28, 2019 [id number] TUTU,JE JONAS PATIENT Selected Encounter This section includes the information on record at [place] for the Encounter. Date/Time Encounter Type Encounter Description Reason Provider Source Dec 02, 2023 02:00 PM [facility] ICD-10-CM F43.10 Post-traumatic stress disorder, unspecified MARK,ZEUS IE IHE Encounter Template Text not used by [place] Assessments - Encounter Diagnoses This section includes the primary and secondary diagnoses documented for the Encounter. Date/Time Primary/Secondary Diagnosis Diagnosis Name Provider Source Dec 03, 2023 08:40 AM PRIMARY Post-traumatic stress disorder, unspecified MARK,JAQUELIN [facility] Plan of Treatment: Future Appointments (+ 6 months) and Future Tests (+/- 45 days) The Plan of Treatment section includes future care activities for the patient from all VA treatmentfacilities. This section includes future appointments and future orders which are active, pending or scheduled. Future Appointments This section includes appointments that were scheduled to occur 6 months from the date of the Encounter, up to a maximum of 20 appointments. The data comes from all VA treatment facilities. Appointment Date/Time Appointment Type Appointme nt Facility Name Dec 09, 2023 02:00 PM [facility] [place] [facility] Dec 17, 2023 08:00 AM AMBULATORY - [facility]AB MEDICIN E [facility] [place] [facility] Dec 23, 2023 02:00 PM AMBULATORY [facility] [place] [facility] Dec 30, 2023 02:00 PM AMBULATORY [facility]ATRY [facility] [place] [facility] Jan 03, 2024 10:00 AM AMBULATORY - [facility] MEDICIN [facility] [place] [facility] Jan 06, 2024 02:00 PM AMBULATORY [facility]IAT[facility] [place] [facility] Jan 10, 2024 07:15 AM AMBULATORY - NONE [facility] [place] [facility] Jan 10, 2024 07:30 AM AMBULATORY - NONE [facility] [place] [facility] Jan 10, 2024 08:30 AM AMBULATORY - NONE [facility] [place] [facility] Jan 13, 2024 02:00 PM AMBULATORY [facility] PS[facility]IATRY [facility] [place] [facility] Jan 20, 2024 02:00 PM AMBULATORY - PS[facility]CHIATRY [facility] [place] [facility] Jan 27, 2024 02:00 PM AMBULATORY - PS[facility]CHIATRY [facility] [place] [facility] Feb 03, 2024 02:00 PM AMBULATORY - PS[facility]CHIATRY [facility] [place] [facility] Feb 10, 2024 02:00 PM AMBULATORY - PS[facility]CHIATRY [facility] [place] [facility] Feb 17, 2024 02:00 PM AMBULATORY - PS[facility]CHIATRY [facility] [place] [facility] Feb 24, 2024 02:00 PM AMBULATORY [facility] PS[facility]CHIATRY [facility] [place] [facility] March 09, 2024 09:00 AM AMBULATORY - MEDICINE [facility] [place] [facility] March 09, 2024 02:00 PM AMBULATORY - PS[place]IATRY [place] [facility] [place] [facility] March 16, 2024 02:00 PM AMBULATORY - PS[place]IATRY [place] [facility] [place] [facility] March 26, 2024 09:00 AM AMBULATORY - PS[place]IATRY [place] [facility] [place] [facility] Social History: Smoking Status (Most current) and Tobacco Use (All prior to encounter date) This section includes the most current, and the historical, smoking and tobacco- related health factors from the [place] facility where the Encounter took place. Current Smoking Status This section includes the most current smoking, or tobacco-related health factor, from the [place] facility where the Encounter took place. Date/Time Current Smoking Status Comment Facil it March 18, 2023 02:30 PM VA-TOBACCO FORMER USER [place] [facility] [place] [facility] Tobacco Use History This section includes a history of the smoking, or tobacco-related health factors, that were collected on or before the date of the Encounter. The data comes from the [place] facility where the Encounter took place. Date/Time Smoking Status/Tobac co Use Comment Facility March 18, 2023 02:30 PM VA-TOBACCO QUIT 15 YRS OR MORE [facility] [place] [facility] Jan 11, 2022 08:30 AM VA-TOBACCO FORMER USER [facility] [place] [facility] Jan 11, 2022 08:30 AM VA-TOBACCO QUIT 15 YRS OR MORE [facility] [place] [facility] Dec 26, 2020 09:00 AM VA-TOBACCO FORMER USER [facility] [place] [facility] Dec 26, 2020 09:00 AM VA-TOBACCO QUIT 15 YRS OR MORE [facility] [place] [facility] Dec 08, 2019 09:16 AM VA-TOBACCO FORMER USER [facility] [place] [facility] Dec 08, 2019 09:16 AM VA-TOBACCO QUIT 15 YRS OR MORE [facility] [place] [facility] Oct 14, 2018 02:56 PM VA-TOBACCO FORMER USER [facility] [place] [facility] Oct 14, 2018 02:56 PM VA-TOBACCO QUIT 15 YRS OR MORE [facility] [place] [facility] Dec 12, 2017 09:20 AM QUIT TOBACCO USE > 7 YEARS AGO quit > 30 yrs ( 2-3 pks a day) [facility] Advance Directives: All historical and current Section Date Range: From patient's date of to the date document was created. This section includes ALL of a patient's completed or amended [place] Advance and Rescinded Directives. The entries below indicate that a directive exists for the patient, but an actual copy is not included with this document. The data comes from all [place] facilities. Date Advance Directives Provider Source Feb 09, 2019 ADVANCE DIRECTIVE VAN MORENO [facility] Feb 08, 2019 ADVANCE DIRECTIVE BELEMSAMM NOUGERA [facility] Encounter Notes: All associated encounter notes This section contains the clinical notes associated to the Encounter. Date/Time Encounter Note(s) Provider Source Dec 02, 2023 02:00 PM SOCIAL WORK GROUP COUNSELING NOTE: LOCAL TITLE: SOCIAL WORK GROUP NOTE STANDARD TITLE: SOCIAL WORK GROUP COUNSELING NOTE DATE OF NOTE: DEC 02, 2023@14:00 ENTRY DATE: DEC 03, 2023@08:13:50 AUTHOR: MANDY FLORES EXP COSIGNER: URGENCY: STATUS: COMPLETED This was a 60-minute supportive psychotherapy group for [place] Veterans with PTSD. 9 members were present today. Topics discussed today included: - health issues and updates, including as well for loved ones, including roles as caregivers for family members. - activities of daily living, including volunteer work and positive ways to spend time (i.e. fishing). - aging and independence, and how to balance keeping the latter while recognizing there are some things physically they cannot do. Members provided one another support and feedback. Next group will be 12/09/2023 [place] reported he was doing well with no new issues or concerns. /gio/ MANDY FLORES [facility] CLINICAL PHYSICIAN ASSISTANT PRIMARY CARE Signed: 12/03/2023 08:41 MANDY FLORES [facility]
--- OUTSIDE RECORDS SUMMARY | 2024-11-02 06:38 | XMS_ITS | Encounter Summary ---
Author Name [place] Address [address] [place] [id number] Care Team Providers Care Assembly Machine Feeder Name Role Phone YANETH JOE Primary Care [...] Policy 's Name Patient's Relationship to Policy [facility] ([facility]) MEDICARE ADVANTAGE [facility] (WNR) Oct 28, 2019 [id number] IVANA CAM JONAS PATIENT Selected Encounter This section includes the information on record at [place] for the Encounter. Date/Time Encounter Type Encounter Description Reason Provider Source Nov 18, 2023 02:00 PM GROUP [facility]CH[facility]AP[facility] ICD-10-CM F43.10 Post-traumatic stress disorder, unspecified MARK,ZEUS IE IHE Encounter Template Text not used by [place] Assessments - Encounter Diagnoses This section includes the primary and secondary diagnoses documented for the Encounter. Date/Time Primary/Secondary Diagnosis Diagnosis Name Provider Source Nov 18, 2023 04:18 PM PRIMARY Post-traumatic stress disorder, unspecified [facility] Plan of Treatment: Future Appointments (+ 6 months) and Future Tests (+/- 45 days) The Plan of Treatment section includes future care activities for the patient from all [facility]. This section includes future appointments and future orders which are active, pending or scheduled. Future Appointments This section includes appointments that were scheduled to occur 6 months from the date of the Encounter, up to a maximum of 20 appointments. The data comes from all [place] treatment facilities. Appointment Date/Time Appointment Type Appointme nt Facility Name Dec 02, 2023 02:00 PM AMBULATORY [facility] [place] [facility] Dec 09, 2023 02:00 PM AMBULATORY [facility]IATRY [facility] [place] [facility] Dec 17, 2023 08:00 AM AMBULATORY - REHAB MEDICIN E [facility] [place] [facility] Dec 23, 2023 02:00 PM AMBULATORY - PS[facility]CHIATRY [facility] [place] [facility] Dec 30, 2023 02:00 PM AMBULATORY - PS[facility]CHIATRY [facility] [place] [facility] Jan 03, 2024 10:00 AM AMBULATORY - REHAB MEDICIN E [facility] [place] [facility] Jan 06, 2024 02:00 PM AMBULATORY - PS[facility]CHIATRY [facility] [place] [facility] Jan 10, 2024 07:15 AM AMBULATORY - NONE [facility] [place] [facility] Jan 10, 2024 07:30 AM AMBULATORY - NONE [facility] [place] [facility] Jan 10, 2024 08:30 AM AMBULATORY - NONE [facility] [place] [facility] Jan 13, 2024 02:00 PM AMBULATORY - PS[facility]CHIATRY [facility] [place] [facility] Jan 20, 2024 02:00 PM AMBULATORY - PS[facility]CHIATRY [facility] [place] [facility] Jan 27, 2024 02:00 PM AMBULATORY - PS[facility]CHIATRY [facility] [place] [facility] Feb 03, 2024 02:00 PM AMBULATORY - PSYCHIATRY [facility] [place] [facility] Feb 10, 2024 02:00 PM AMBULATORY - PSYCHIATRY [facility] [place] [facility] Feb 17, 2024 02:00 PM AMBULATORY - PS[facility]CHIATRY [facility] [place] [facility] Feb 24, 2024 02:00 PM AMBULATORY - PSYCHIATRY [facility] [place] [facility] March 09, 2024 09:00 AM AMBULATORY [place]ICINE [place] [facility] [place] [facility] March 09, 2024 02:00 PM AMBULATORY [place]ATRY [place] [facility] [place] [facility] March 16, 2024 02:00 PM AMBULATORY - PS[place]IATRY [place] [facility] [place] [facility] Social History: Smoking Status (Most current) and Tobacco Use (All prior to encounter date) This section includes the most current, and the historical, smoking and tobacco- related health factors from the [place] facility where the Encounter took place. Current Smoking Status This section includes the most current smoking, or tobacco-related health factor, from the [place] facility where the Encounter took place. Date/Time Current Smoking Status Comment Facil it March 18, 2023 02:30 PM VA-TOBACCO QUIT 15 YRS OR MORE [place] [facility] [place] [facility] Tobacco Use History This section includes a history of the smoking, or tobacco-related health factors, that were collected on or before the date of the Encounter. The data comes from the [place] facility where the Encounter took place. Date/Time Smoking Status/Tobac co Use Comment Facility March 18, 2023 02:30 PM VA-TOBACCO QUIT 15 YRS OR MORE [place] [facility] [place] [facility] Jan 11, 2022 08:30 AM VA-TOBACCO FORMER USER [facility] [place] [facility] Jan 11, 2022 08:30 AM VA-TOBACCO QUIT 15 YRS OR MORE [facility] [place] [facility] Dec 26, 2020 09:00 AM VA-TOBACCO FORMER USER [facility] [place] [facility] Dec 26, 2020 09:00 AM VA-TOBACCO QUIT 15 YRS OR MORE [facility] [place] [facility] Dec 08, 2019 09:16 AM VA-TOBACCO FORMER USER [facility] [place] [facility] Dec 08, 2019 09:16 AM VA-TOBACCO QUIT 15 YRS OR MORE [facility] [place] [facility] Oct 14, 2018 02:56 PM VA-TOBACCO FORMER USER [facility] [place] [facility] Oct 14, 2018 02:56 PM VA-TOBACCO QUIT 15 YRS OR MORE [facility] [place] [facility] Dec 12, 2017 09:20 AM QUIT TOBACCO USE > 7 YEARS AGO quit > 30 yrs ( 2-3 pks a day) [facility] Advance Directives: All historical and current Section Date Range: From patient's date of to the date document was created. This section includes ALL of a patient's completed or amended [place] Advance and Rescinded Directives. The entries below indicate that a directive exists for the patient, but an actual copy is not included with this document. The data comes from all [place] facilities. Date Advance Directives Provider Source Feb 09, 2019 ADVANCE DIRECTIVE VAN MORENO [facility] Feb 08, 2019 ADVANCE DIRECTIVE SONALIPRIYASAMM NOGUERA [facility] Encounter Notes: All associated encounter notes This section contains the clinical notes associated to the Encounter. Date/Time Encounter Note(s) Provider Source Nov 18, 2023 02:00 PM SOCIAL WORK GROUP COUNSELING NOTE: LOCAL TITLE: SOCIAL WORK GROUP NOTE STANDARD TITLE: SOCIAL WORK GROUP COUNSELING NOTE DATE OF NOTE: NOV 18, 2023@14:00 ENTRY DATE: NOV 18, 2023@16:11:54 AUTHOR: MANDY FLORES EXP COSIGNER: URGENCY: STATUS: COMPLETED This was a 60-minute supportive psychotherapy group for [place] Veterans with PTSD. 9 members were present today. Topics discussed today included: - anger management. Discussion of tools that have helped members, such as finding positive outlets. Members also talked about their own struggles with anger, triggers, and outlets. - health issues and updates, including as well for loved ones, including roles as caregivers for family members. - activities of daily living, including volunteer work and recent trips. - grief and loss, particularly one member whose niece recently . Members provided one another support and feedback. Next group will be 12/02/2023 updated the group on his sister with dementia and her now being in a shelter. /gio/ MANDY FLORES [facility] CLINICAL SCRAPER OPERATOR Signed: 11/18/2023 16:19 MANDY FLORES [facility]
--- OUTSIDE RECORDS SUMMARY | 2024-11-02 06:38 | XMS_ITS | Encounter Summary ---
Author Name [place] Organization [place] Address [address] [place] [address] Care Team Providers Care [employer] Name Role Phone YANETH JOE Primary Care [...] Policy 's Name Patient's Relationship to Policy [facility] (WNR) MEDICARE ADVANTAGE [facility] (R) Oct 28, 2019 [id number] TUTU,JE JONAS PATIENT Selected Encounter This section includes the information on record at [place] for the Encounter. Date/Time Encounter Type Encounter Description Reason Provider Source Dec 09, 2023 02:00 PM GROUP PSYCHOTHERAPY [facility] ICD-10-CM F43.10 Post-traumatic stress disorder, unspecified MARK,ZEUS IE IHE Encounter Template Text not used by [place] Assessments - Encounter Diagnoses This section includes the primary and secondary diagnoses documented for the Encounter. Date/Time Primary/Secondary Diagnosis Diagnosis Name Provider Source Dec 10, 2023 08:14 AM PRIMARY Post-traumatic stress disorder, unspecified [facility] Plan of Treatment: Future Appointments (+ 6 [...] 20 appointments. The data comes from all [place] treatment facilities. Appointment Date/Time Appointment Type Appointme nt Facility Name Dec 17, 2023 08:00 AM AMBULATORY - [facility] MEDICIN E [facility] [place] [facility] Dec 23, 2023 02:00 PM AMBULATORY - PSYCHIATRY [facility] [place] [facility] Dec 30, 2023 02:00 PM AMBULATORY - PSYCHIATRY [facility] [place] [facility] Jan 03, 2024 10:00 AM AMBULATORY - REHAB MEDICIN E [facility] [place] [facility] Jan 06, 2024 02:00 PM AMBULATORY - PSYCHIATRY [facility] [place] [facility] Jan 10, 2024 07:15 AM AMBULATORY - NONE [facility] [place] [facility] Jan 10, 2024 07:30 AM AMBULATORY - NONE [facility] [place] [facility] Jan 10, 2024 08:30 AM AMBULATORY - NONE [facility] [place] [facility] Jan 13, 2024 02:00 PM AMBULATORY - PSYCHIATRY [facility] [place] [facility] Jan 20, 2024 02:00 PM AMBULATORY - PSYCHIATRY [facility] [place] [facility] Jan 27, 2024 02:00 PM AMBULATORY - PSYCHIATRY [facility] [place] [facility] Feb 03, 2024 02:00 PM AMBULATORY - PSYCHIATRY [facility] [place] [facility] Feb 10, 2024 02:00 PM AMBULATORY - PSYCHIATRY [facility] [place] [facility] Feb 17, 2024 02:00 PM AMBULATORY - PSYCHIATRY [facility] [place] [facility] Feb 24, 2024 02:00 PM AMBULATORY - PSYCHIATRY [facility] [place] [facility] March 09, 2024 09:00 AM AMBULATORY - MEDICINE [facility] [place] [facility] March 09, 2024 02:00 PM AMBULATORY - PSYCHIATRY [facility] [place] [facility] March 16, 2024 02:00 PM AMBULATORY - PSYCHIATRY [place] [facility] [place] [facility] March 26, 2024 09:00 AM AMBULATORY - PSYCHIATRY [place] [facility] [place] [facility] Mar 30, 2024 02:00 PM AMBULATORY - PSYCHIATRY [place] [facility] [place] [facility] Social History: Smoking Status (Most current) and Tobacco Use (All prior to encounter date) This section includes the most current, and the historical, smoking and tobacco- related health factors from the [place] facility where the Encounter took place. Current Smoking Status This section includes the most current smoking, or tobacco-related health factor, from the [place] facility where the Encounter took place. Date/Time Current Smoking Status Comment Facil it March 18, 2023 02:30 PM VA-TOBACCO QUIT [address] [place] [facility] [place] [facility] Tobacco Use History This section includes a history of the smoking, or tobacco-related health factors, that were collected on or before the date of the Encounter. The data comes from the [place] facility where the Encounter took place. Date/Time Smoking Status/Tobac co Use Comment Facility March 18, 2023 02:30 PM VA-TOBACCO QUIT [address] [place] [facility] [place] [facility] Jan 11, 2022 08:30 AM VA-TOBACCO FORMER USER [facility] [place] [facility] Jan 11, 2022 08:30 AM VA-TOBACCO QUIT 15 YRS OR MORE [facility] [place] [facility] Dec 26, 2020 09:00 AM VA-TOBACCO FORMER USER [facility] [place] [facility] Dec 26, 2020 09:00 AM VA-TOBACCO QUIT 15 YRS OR MORE [facility] [place] [facility] Dec 08, 2019 09:16 AM VA-TOBACCO FORMER USER [facility] [place] [facility] Dec 08, 2019 09:16 AM VA-TOBACCO QUIT 15 YRS OR MORE [facility] [place] [facility] Oct 14, 2018 02:56 PM VA-TOBACCO FORMER USER [facility] [place] [facility] Oct 14, 2018 02:56 PM VA-TOBACCO QUIT 15 YRS OR MORE [facility] [place] [facility] Dec 12, 2017 09:20 AM QUIT TOBACCO USE > 7 YEARS AGO quit > 30 yrs ( 2-3 pks a day) [facility] Advance Directives: All historical and current Section Date Range: From patient's date of to the date document was created. This section includes ALL of a patient's completed or amended CT Advance and Rescinded Directives. The entries below indicate that a directive exists for the patient, but an actual copy is not included with this document. The data comes from all [place] facilities. Date Advance Directives Provider Source Feb 09, 2019 ADVANCE DIRECTIVE VAN MORENO [facility] Feb 08, 2019 ADVANCE DIRECTIVE SONALIPRIYASAMM NOGUERA [facility] Encounter Notes: All associated encounter notes This section contains the clinical notes associated to the Encounter. Date/Time Encounter Note(s) Provider Source Dec 09, 2023 02:00 PM SOCIAL WORK GROUP COUNSELING NOTE: LOCAL TITLE: SOCIAL WORK GROUP NOTE STANDARD TITLE: SOCIAL WORK GROUP COUNSELING NOTE DATE OF NOTE: DEC 09, 2023@14:00 ENTRY DATE: DEC 10, 2023@08:06:59 AUTHOR: MANDY FLORES EXP COSIGNER: URGENCY: STATUS: COMPLETED This was a 60-minute supportive psychotherapy group for [place] Veterans with PTSD. 9 members were present today. Topics discussed today included: - substance use recovery. One member had begun drinking alcohol again and this prompted a lengthy discussion about other people's experiences with this and whether or not resuming alcohol use is possible. Coping techniques were discussed, and reasons to not drink were also discussed. - health issues and updates, including as well for loved ones. - activities of daily living, including volunteer work and positive ways to spend time. Members provided one another support and feedback. Next group will be 12/23/2023 [place] shared he is drinking alcohol again, just once a week, up to two drinks. He thinks he can maintain at this level, though he also expressed some awareness that perhaps it is better he not drink at all. Members provided support, feedback, and sharing of their own personal experiences. /gio/ MANDY FLORES [facility] CLINICAL TELEVISION SPECIALIST Signed: 12/10/2023 08:15 MANDY FLORES [facility]
--- OUTSIDE RECORDS SUMMARY | 2024-11-02 06:38 | XMS_ITS | Encounter Summary ---
Author Name [facility] [place] Address [address] [place] [id number] Care Team Providers Care News Copy Editor Name Role Phone YANETH JOE Primary Care [...] Policy 's Name Patient's Relationship to Policy [facility] (WNR) MEDICARE ADVANTAGE [facility] (WNR) Oct 28, 2019 [id number] TUTU,JE JONAS PATIENT Selected Encounter This section includes the information on record at [place] for the Encounter. Date/Time Encounter Type Encounter Description Reason Provider Source Nov 04, 2023 02:00 PM GROUP PSYCHOTHERAPY [facility] ICD-10-CM F43.10 Post-traumatic stress disorder, unspecified MARK,ZEUS IE IHE Encounter Template Text not used by [place] Assessments - Encounter Diagnoses This section includes the primary and secondary diagnoses documented for the Encounter. Date/Time Primary/Secondary Diagnosis Diagnosis Name Provider Source Nov 05, 2023 08:43 AM PRIMARY Post-traumatic stress disorder, unspecified MARK,[facility]QUELIN E [facility] Plan of Treatment: Future Appointments (+ 6 months) and Future Tests (+/- 45 days) The Plan of Treatment section includes future care activities for the patient [facility] This section includes future appointments and future orders which are active, pending or scheduled. Future Appointments This section includes appointments that were scheduled to occur 6 months from the date of the Encounter, up to a maximum of 20 appointments. The data comes from all [place] treatment facilities. Appointment Date/Time Appointment Type Appointme nt Facility Name Nov 18, 2023 02:00 PM AMBULATORY [facility]AT[facility] [place] [facility] Dec 02, 2023 02:00 PM AMBULATORY [facility]ATRY [facility] [place] [facility] Dec 09, 2023 02:00 PM AMBULATORY - PS[facility]CHIATRY [facility] [place] [facility] Dec 17, 2023 08:00 AM AMBULATORY - REHAB MEDICIN E [facility] [place] [facility] Dec 23, 2023 02:00 PM AMBULATORY - PS[facility]IATRY [facility] [place] [facility] Dec 30, 2023 02:00 PM AMBULATORY - PS[facility]IATRY [facility] [place] [facility] Jan 03, 2024 10:00 AM AMBULATORY - REHAB MEDICIN E [facility] [place] [facility] Jan 06, 2024 02:00 PM AMBULATORY - PS[facility]IATRY [facility] [place] [facility] Jan 10, 2024 07:15 AM AMBULATORY - NONE [facility] [place] [facility] Jan 10, 2024 07:30 AM AMBULATORY - NONE [facility] [place] [facility] Jan 10, 2024 08:30 AM AMBULATORY - NONE [facility] [place] [facility] Jan 13, 2024 02:00 PM AMBULATORY - PS[facility]CHIATRY [facility] [place] [facility] Jan 20, 2024 02:00 PM AMBULATORY - PS[facility]CHIATRY [facility] [place] [facility] Jan 27, 2024 02:00 PM AMBULATORY - PS[facility]CHIATRY [facility] [place] [facility] Feb 03, 2024 02:00 PM AMBULATORY - PS[facility]CHIATRY [facility] [place] [facility] Feb 10, 2024 02:00 PM AMBULATORY - PS[facility]CHIATRY [facility] [place] [facility] Feb 17, 2024 02:00 PM AMBULATORY - PS[facility]CHIATRY [facility] [place] [facility] Feb 24, 2024 02:00 PM AMBULATORY - PSYCHIATRY [place] [facility] [place] [facility] March 09, 2024 09:00 AM AMBULATORY - MEDICINE [place] [facility] [place] [facility] March 09, 2024 02:00 PM AMBULATORY - PSYCHIATRY [place] [facility] [place] [facility] Social History: Smoking Status (Most current) and Tobacco Use (All prior to encounter date) This section includes the most current, and the historical, smoking and tobacco- related health factors from the [place] facility where the Encounter took place. Current Smoking Status This section includes the most current smoking, or tobacco-related health factor, from the [place] facility where the Encounter took place. Date/Time Current Smoking Status Comment Facil it March 18, 2023 02:30 PM VA-TOBACCO QUIT 15 YRS OR MORE [place] [facility] [place] [facility] Tobacco Use History This section includes a history of the smoking, or tobacco-related health factors, that were collected on or before the date of the Encounter. The data comes from the [place] facility where the Encounter took place. Date/Time Smoking Status/Tobac co Use Comment Facility March 18, 2023 02:30 PM VA-TOBACCO QUIT 15 YRS OR MORE [facility] [place] [facility] Jan 11, 2022 08:30 AM VA-TOBACCO FORMER USER [facility] [place] [facility] Jan 11, 2022 08:30 AM VA-TOBACCO QUIT 15 YRS OR MORE [facility] [place] [facility] Dec 26, 2020 09:00 AM VA-TOBACCO FORMER USER [facility] [place] [facility] Dec 26, 2020 09:00 AM VA-TOBACCO QUIT 15 YRS OR MORE [facility] [place] [facility] Dec 08, 2019 09:16 AM VA-TOBACCO FORMER USER [facility] [place] [facility] Dec 08, 2019 09:16 AM VA-TOBACCO QUIT 15 YRS OR MORE [facility] [place] [facility] Oct 14, 2018 02:56 PM VA-TOBACCO FORMER USER [facility] [place] [facility] Oct 14, 2018 02:56 PM VA-TOBACCO QUIT 15 YRS OR MORE [facility] [place] [facility] Dec 12, 2017 09:20 AM QUIT TOBACCO USE > 7 YEARS AGO quit > 30 yrs ( 2-3 pks a day) [facility] Advance Directives: All historical and current Section Date Range: From patient's date of to the date document was created. This section includes ALL of a patient's completed or amended [place] Advance and Rescinded Directives. The entries below indicate that a directive exists for the patient, but an actual copy is not included with this document. The data comes from all [place] facilities. Date Advance Directives Provider Source Feb 09, 2019 ADVANCE DIRECTIVE VAN MORENO [facility] Feb 08, 2019 ADVANCE DIRECTIVE SONALIPRIYASAMM NOGUERA V [facility] Encounter Notes: All associated encounter notes This section contains the clinical notes associated to the Encounter. Date/Time Encounter Note(s) Provider Source Nov 04, 2023 02:00 PM SOCIAL WORK GROUP COUNSELING NOTE: LOCAL TITLE: SOCIAL WORK GROUP NOTE STANDARD TITLE: SOCIAL WORK GROUP COUNSELING NOTE DATE OF NOTE: NOV 04, 2023@14:00 ENTRY DATE: NOV 05, 2023@08:11:27 AUTHOR: MANDY FLORES EXP COSIGNER: URGENCY: STATUS: COMPLETED This was a 60-minute supportive psychotherapy group for [employer] Veterans with PTSD. 8 members were present today. Topics discussed today included: - anger management. One member shared he was finding himself struggling more with getting angry. Discussion was had about vulnerability/risk factors that can lead to having a set back with anger management, and how to be more aware of those. - health issues and updates, including as well for loved ones, including roles as caregivers for family members. - activities of daily living, including volunteer work and recent trips. Members provided one another support and feedback. Next group will be 11/18/2023 [place] updated on his sister. He reported he was doing well with no new concerns or problems. /gio/ [facility] CLINICAL CIRCUS HAND Signed: 11/05/2023 08:44 MANDY FLORES [facility]
--- OUTSIDE RECORDS SUMMARY | 2024-11-02 06:38 | XMS_ITS ---
Author Name [facility] [place] Address [address] [place] [id number] Care Team Providers Care Filter Operator Name Role Phone YANETH JOE Primary Care Provider Unavailabl e Insurance Providers: All historical and current Section Date Range: From patient's date of to the date document was created. This section includes the names of all active insurance providers for the patient. Insurance Provider Type of Coverage Plan Name Start of Policy Coverage End of Policy Coverage Group Number Member ID Insurance Provider's Telephone Number Policy 's Name Patient's Relationship to Policy [facility] ([facility]) MEDICARE ADVANTAGE [facility] ([facility]) Oct 28, 2019 [id number] IVANA CAM PATIENT Selected Encounter This section includes the information on record at [place] for the Encounter. Date/Time Encounter Type Encounter Description Reason Provider Source Dec 17, 2023 08:00 AM HEARING AID REPAIR/MODIFYIN G AUDIOLOGY ICD-10-CM Z46.1 Encounter for fitting and adjustment of hearing aid MELISA CACERES Encounter Template Text not used by [place] Assessments - Encounter Diagnoses This section includes the primary and secondary diagnoses documented for the Encounter. Date/Time Primary/Secondary Diagnosis Diagnosis Name Provider Source Dec 17, 2023 09:51 AM PRIMARY Encounter for fitting and adjustment of hearing aid [facility]ISA [facility]ES [facility] [place] [facility] Dec 17, 2023 09:51 AM SECONDARY Sensorineural hearing loss, bilateral SENIOR,MELISA Peter [facility] [place] [facility] Plan of Treatment: Future Appointments (+ [...] 20 appointments. The data comes from all [place] treatment facilities. Appointment Date/Time Appointment Type Appointme nt Facility Name Dec 23, 2023 02:00 PM AMBULATORY - PS[facility]IATRY [facility] [place] [facility] Dec 30, 2023 02:00 PM AMBULATORY - PS[facility]CHIATRY [facility] [place] [facility] Jan 03, 2024 10:00 AM AMBULATORY - REHAB MEDICIN E [facility] [place] [facility] Jan 06, 2024 02:00 PM AMBULATORY - PSYCHIATRY [facility] [place] [facility] Jan 10, 2024 07:15 AM AMBULATORY - NONE [facility] [place] [facility] Jan 10, 2024 07:30 AM AMBULATORY - NONE [facility] [place] [facility] Jan 10, 2024 08:30 AM AMBULATORY - NONE [facility] [place] [facility] Jan 13, 2024 02:00 PM AMBULATORY - PSYCHIATRY [facility] [place] [facility] Jan 20, 2024 02:00 PM AMBULATORY - PSYCHIATRY [facility] [place] [facility] Jan 27, 2024 02:00 PM AMBULATORY - PSYCHIATRY [facility] [place] [facility] Feb 03, 2024 02:00 PM AMBULATORY - PSYCHIATRY [facility] [place] [facility] Feb 10, 2024 02:00 PM AMBULATORY - PSYCHIATRY [facility] [place] [facility] Feb 17, 2024 02:00 PM AMBULATORY - PSYCHIATRY [facility] [place] [facility] Feb 24, 2024 02:00 PM AMBULATORY - PSYCHIATRY [facility] [place] [facility] March 09, 2024 09:00 AM AMBULATORY - MEDICINE [facility] [place] [facility] March 09, 2024 02:00 PM AMBULATORY - PSYCHIATRY [facility] [place] [facility] March 16, 2024 02:00 PM AMBULATORY - PSYCHIATRY [facility] [place] [facility] March 26, 2024 09:00 AM AMBULATORY - PSYCHIATRY [facility] [place] [facility] Mar 30, 2024 02:00 PM AMBULATORY - PSYCHIATRY [facility] [place] [facility] Apr 06, 2024 02:00 PM AMBULATORY - PSYCHIATRY [place] [facility] [place] [facility] Social History: Smoking Status (Most current) and Tobacco Use (All prior to encounter date) This section includes the most current, and the historical, smoking and tobacco- related health factors from the [place] facility where the Encounter took place. Current Smoking Status This section includes the most current smoking, or tobacco-related health factor, from the [place] facility where the Encounter took place. Date/Time Current Smoking Status Comment Facil it March 18, 2023 02:30 PM VA-TOBACCO FORMER USER [place] [facility] [place] [facility] Tobacco Use History This section includes a history of the smoking, or tobacco-related health factors, that were collected on or before the date of the Encounter. The data comes from the [place] facility where the Encounter took place. Date/Time Smoking Status/Tobac co Use Comment Facility March 18, 2023 02:30 PM VA-TOBACCO QUIT 15 YRS OR MORE [facility] [place] [facility] Jan 11, 2022 08:30 AM VA-TOBACCO FORMER USER [facility] [place] [facility] Jan 11, 2022 08:30 AM VA-TOBACCO QUIT 15 YRS OR MORE [facility] [place] [facility] Dec 26, 2020 09:00 AM VA-TOBACCO FORMER USER [facility] [place] [facility] Dec 26, 2020 09:00 AM VA-TOBACCO QUIT 15 YRS OR MORE [facility] [place] [facility] Dec 08, 2019 09:16 AM VA-TOBACCO FORMER USER [facility] [place] [facility] Dec 08, 2019 09:16 AM VA-TOBACCO QUIT 15 YRS OR MORE [facility] [place] [facility] Oct 14, 2018 02:56 PM VA-TOBACCO FORMER USER [facility] [place] [facility] Oct 14, 2018 02:56 PM VA-TOBACCO QUIT 15 YRS OR MORE [facility] Dec 12, 2017 09:20 AM QUIT TOBACCO USE > 7 YEARS AGO quit > 30 yrs ( 2-3 pks a day) [facility] Advance Directives: All historical and current Section Date Range: From patient's date of to the date document was created. This section includes ALL of a patient's completed or amended [place] Advance and Rescinded Directives. The entries below indicate that a directive exists for the patient, but an actual copy is not included with this document. The data comes from all [place] facilities. Date Advance Directives Provider Source Feb 09, 2019 ADVANCE DIRECTIVE TIFFANIEVAN Dow [facility] Feb 08, 2019 ADVANCE DIRECTIVE KEENASAMM ZEV Sierra [facility] Radiology Reports: +/- 30 days of the encounter Radiology Reports For cases when an order for radiology services may have been completed prior to the date of the Encounter, the report list includes the Radiology Reports that were completed up to 30 days before dateof the Encounter. For cases when an order for radiology services may have been completed after the date of the Encounter, the report list also includes the Radiology Reports that were completed up to30 days after date of the Encounter. The data comes from all [place] treatment facilities. Date/Time Radiology Report Provider Source Jan 10, 2024 07:[address] PULMONARY NODULES W/O CONTRAST: HIGINIO CAM JR [id number] M Ex Date: JAN 10, 2024@07:59 Req Phys: NADIA DHALIWAL Loc: CWM/NO/PACT/TELE/LEDGER POSTER (Req'g Loc Img Loc: NHM/CT Service: Unknown (Case [id number] COMPLETE) CT THORAX W/O CONT (CT Detailed) CPT:26739 Reason for Study: annual f/u -look for cancer Clinical History: Report Status: Verified Date Reported: JAN 10, 2024 Date Verified: JAN 10, 2024 Supervisor Agency Appointments E-Sig:/ES/RAKAN TERAN JR Report: Study: Noncontrast CT scan of the chest. Comparison: CT scan of the chest from January 21, 2023 and July 30, 2022. TECHNIQUE: Contiguous axial [address] imaging is performed from the lung apices through the lung bases without the administration of intravenous contrast as per standard department protocol. Subsequently, sagittal and coronal reformats were generated. The lack of intravenous contrast inherently limits the evaluation of hilar structures, vascular structures, and abnormal enhancement patterns. Lower than standard dose was utilized limiting sensitivity for fine parenchymal detail. Dose Parameters: CTDI(vol): 2.1 mGy. DLP: 84.6 mGy*cm. Findings: The central airways are patent, small amount retained secretions within the trachea. Moderately advanced emphysema, with prominent paraseptal features in the lower lung garcia is unchanged. Stable bibasilar traction bronchiectasis as well. Subsegmental atelectasis or mild scarring is seen in each lung. No lung consolidation. 8 mm left lower lobe likely vascular based nodule 8-289 with some tortuous left lung base vessels. Left lower lobe 3.4 mm solid nodule unchanged 8-295. New focus of mucus plugging within the right lower lobe bronchus, 8-330. No new concerning pulmonary nodule or mass is identified. No pleural effusion. Mild elevation of the left hemidiaphragm. Given findings, follow-up pulmonary imaging should only be as clinically indicated. Normal heart size. The ascending thoracic aorta is ectatic measuring 4.1 cm with prominent peripheral atherosclerotic calcification. There are prominent aortic and coronary artery calcifications noted. No suspicious mediastinal, hilar, or axillary lymphadenopathy. No acute or aggressive bone changes. Impression: No new abnormality identified, as described above. Primary Diagnostic Code: No immediate attention required Primary Interpreting Staff: RAKAN TERAN JR, Radiologist (Supervisor Agency Appointments) /RAKAN CA JR [facility] Encounter Notes: All associated encounter notes This section contains the clinical notes associated to the Encounter. Date/Time Encounter Note(s) Provider Source Dec 17, 2023 08:17 AM AUDIOLOGY NOTE: LOCAL TITLE: AUDIOLOGY STUDENT PROGRESS NOTE STANDARD TITLE: AUDIOLOGY NOTE DATE OF NOTE: DEC 17, 2023@08:17 ENTRY DATE: DEC 17, 2023@08:17:59 AUTHOR: REN BLISS COSIGNER: MELISA CACERES URGENCY: STATUS: COMPLETED Dx CODE: Z46.1-Encounter for Fitting/Adjusting Hearing Aid(s); H90.3- Sensorineural Hearing Loss, Bilateral APPOINTMENT TYPE: Hearing Aid Check HISTORY/BACKGROUND: was seen for a hearing aid follow-up appointment, unaccompanied. He was fit on 03/18/2023 with [employer] AI NEGRITA 312. He scheduled today's appointment to get a new earmold for the left device as the canal lock has broken off his current mold. He is unable to wear the left hearing aid often as it is uncomfortable in his ear and the device falls out of his ear more often since the earmold broke. HEARING AID CHECK: The hearing aids were cleaned and checked. The left earmold was sanded down for more comfortable fit for the patient. Listening inspection revealed both devices were working well. A new earmold was ordered in [facility] and will return to pickling operator new earmold once it arrives. PLAN/RECOMMENDATION(S): 1. Return to pickling operator left earmold 2. Follow up as needed. Patient Education Education provided on the following topics: Hearing aids Education provided to: P Response to Education: VU Dhillon Patient P Family F Significant Other SO Verbalizes Understanding VU Returns Demonstration RD Performs Independently PI Lacks Comprehension LC Refused Education RE Not Applicable NA /gio/ REN BLISS AUDIOLOGY STUDENT Signed: 12/17/2023 10:02 /gio/ EDI BROWN, [facility]-A STAFF SENIOR RUBY DEVELOPER Cosigned: 12/17/2023 10:18 REN BLISS [place] [facility] [place] [facility] Dec 17, 2023 07:26 AM AUDIOLOGY E & M NO TE: LOCAL TITLE: AUDIOLOGY CLINIC STANDARD TITLE: AUDIOLOGY E & M NOTE DATE OF NOTE: DEC 17, 2023@07:26 ENTRY DATE: DEC 17, 2023@07:26:52 AUTHOR: MELISA CACERES COSIGNER: URGENCY: STATUS: COMPLETED AUDIOLOGY CLINIC Has ADDENDA Dx CODE: Z46.1-Encounter for Fitting/Adjusting Hearing Aid(s); H90.3- Sensorineural Hearing Loss, Bilateral APPOINTMENT TYPE: Hearing Aid Check HISTORY/BACKGROUND: Secor was seen for a hearing aid follow-up appointment, unaccompanied. He was fit on 03/18/2023 with [employer] AI NEGRITA 312. He scheduled today's appointment to get a new earmold for the left device as the canal lock has broken off his current mold. He is unable to wear the left hearing aid often as it is uncomfortable in his ear and the device falls out of his ear more often since the earmold broke. HEARING AID CHECK: The hearing aids were cleaned and checked. The left earmold was sanded down for more comfortable fit for the patient. Listening inspection revealed both devices were working well. A new earmold was ordered in [facility] and will return to pickling operator new earmold once it arrives. PLAN/RECOMMENDATION(S): 1. will be contacted to schedule a 30 min HAC for earmold fitting upon receipt. Patient Education Education provided on the following topics: Hearing aids Education provided to: P Response to Education: VU Dhillon Patient P Family F Significant Other SO Verbalizes Understanding VU Returns Demonstration RD Performs Independently PI Lacks Comprehension LC Refused Education RE Not Applicable NA /EDI Arnold, [facility]-A STAFF SENIOR RUBY DEVELOPER Signed: 12/17/2023 09:51 12/24/2023 ADDENDUM STATUS: COMPLETED Left earmold received and certified, spoke with Secor and scheduled 30 min HAC for pickling operator on 01/03/2024. Earmold placed in chowdary cabinet Scheduled shelf. /gio/ CHERI ARCHIBALD Audiology Health Trimming Caser Signed: 12/24/2023 14:36 [facility]ES [facility]
--- OUTSIDE RECORDS SUMMARY | 2024-11-02 06:39 | XMS_ITS ---
Author Name [facility] [place] Address [address] [place] [id number] Care Team Providers Care Wafer Polishing Lead Worker Name Role Phone YANETH JOE Primary Care [...] Policy 's Name Patient's Relationship to Policy [facility] ([facility]) MEDICARE ADVANTAGE [facility] ([facility]) Oct 28, 2019 [id number] IVANA CAM PATIENT Selected Encounter This section includes the information on record at [place] for the Encounter. Date/Time Encounter Type Encounter Description Reason Provider Source Jan 10, 2024 07:15 AM CASE MGMT-ORAL HEALTH LIT DENTAL ICD-10-CM K03.6 Deposits [accretions] on teeth BELIRAM MOORE HDA E Encounter Template Text not used by [place] Assessments - Encounter Diagnoses This section includes the primary and secondary diagnoses documented for the Encounter. Date/Time Primary/Secondary Diagnosis Diagnosis Name Provider Source Jan 10, 2024 08:17 AM PRIMARY Deposits [accretions] on teeth BELYSHEIRAM Esquivel HDA [facility] [place] [facility] Plan of Treatment: Future Appointments (+ 6 months) and Future Tests (+/- 45 days) The Plan of Treatment section includes future care activities for the patient from all [facility]. This section includes future appointments and future orders which are active, pending or scheduled. Future Appointments This section includes appointments that were scheduled to occur 6 months from the date of the Encounter, up to a maximum of 20 appointments. The data comes from all [place] treatment facilities. Appointment Date/Time Appointment Type Appointme nt Facility Name Jan 13, 2024 02:00 PM AMBULATORY - PS[facility]IATRY [facility] [place] [facility] Jan 20, 2024 02:00 PM AMBULATORY - PS[facility]CHIATRY [facility] [place] [facility] Jan 27, 2024 02:00 PM AMBULATORY - PS[facility]CHIATRY [facility] [place] [facility] Feb 03, 2024 02:00 PM AMBULATORY - PSYCHIATRY [facility] [place] [facility] Feb 10, 2024 02:00 PM AMBULATORY - PS[facility]CHIATRY [facility] [place] [facility] Feb 17, 2024 02:00 PM AMBULATORY - PSYCHIATRY [facility] [place] [facility] Feb 24, 2024 02:00 PM AMBULATORY - PSYCHIATRY [facility] [place] [facility] March 09, 2024 09:00 AM AMBULATORY - MEDICINE [facility] [place] [facility] March 09, 2024 02:00 PM AMBULATORY - PSYCHIATRY [facility] [place] [facility] March 16, 2024 02:00 PM AMBULATORY - PSYCHIATRY [facility] [place] [facility] March 26, 2024 09:00 AM AMBULATORY - PSYCHIATRY [facility] [place] [facility] Mar 30, 2024 02:00 PM AMBULATORY - PSYCHIATRY [facility] [place] [facility] Apr 06, 2024 02:00 PM AMBULATORY - PSYCHIATRY [facility] [place] [facility] May 04, 2024 02:00 PM AMBULATORY - PSYCHIATRY [facility] [place] [facility] May 11, 2024 02:00 PM AMBULATORY - PSYCHIATRY [facility] [place] [facility] May 18, 2024 02:00 PM AMBULATORY - PSYCHIATRY [facility] [place] [facility] Jun 01, 2024 02:00 PM AMBULATORY - PSYCHIATRY [facility] [place] [facility] Jun 08, 2024 02:00 PM AMBULATORY - PSYCHIATRY [place] [facility] [place] [facility] Jun 15, 2024 02:00 PM AMBULATORY - PSYCHIATRY [place] [facility] [place] [facility] Jun 22, 2024 02:00 PM AMBULATORY - PSYCHIATRY [place] [facility] [place] [facility] Vital Signs: All taken on the encounter date This section contains inpatient and outpatient Vital Signs collected on the date of the Encounter. Date/Time Temperature Pulse Blood Pressure Respiratory Rate SP02 Pain Height Weight Body Mass Index Source Jan 10, 2024 07:22 AM 67 138/85 0 [place] [facility] [place] [facility] Social History: Smoking Status (Most current) and Tobacco Use (All prior to encounter date) This section includes the most current, and the historical, smoking and tobacco- related health factors from the [place] facility where the Encounter took place. Current Smoking Status This section includes the most current smoking, or tobacco-related health factor, from the [place] facility where the Encounter took place. Date/Time Current Smoking Status Comment [facility] it March 18, 2023 02:30 PM VA-TOBACCO FORMER USER [place] [facility] [place] [facility] Tobacco Use History This section includes a history of the smoking, or tobacco-related health factors, that were collected on or before the date of the Encounter. The data comes from the [place] facility where the Encounter took place. Date/Time Smoking Status/Tobac co Use Comment Facility March 18, 2023 02:30 PM VA-TOBACCO QUIT 15 YRS OR MORE [place] [facility] [place] [facility] Jan 11, 2022 08:30 AM VA-TOBACCO FORMER USER [place] [facility] [place] [facility] Jan 11, 2022 08:30 AM VA-TOBACCO QUIT 15 YRS OR MORE [place] [facility] [place] [facility] Dec 26, 2020 09:00 AM VA-TOBACCO FORMER USER [facility] [place] [facility] Dec 26, 2020 09:00 AM VA-TOBACCO QUIT 15 YRS OR MORE [facility] [place] [facility] Dec 08, 2019 09:16 AM VA-TOBACCO FORMER USER [place] [facility] [place] [facility] Dec 08, 2019 09:16 AM VA-TOBACCO QUIT 15 YRS OR MORE [facility] Oct 14, 2018 02:56 PM [place]-TOBACCO FORMER USER [facility] Oct 14, 2018 02:56 PM [place]-TOBACCO QUIT 15 YRS OR MORE [facility] Dec 12, 2017 09:20 AM QUIT TOBACCO USE > 7 YEARS AGO quit > 30 yrs ( 2-3 pks a day) [facility] Advance Directives: All historical and current Section Date Range: From patient's date of to the date document was created. This section includes ALL of a patient's completed or amended [place] Advance and Rescinded Directives. The entries below indicate that a directive exists for the patient, but an actual copy is not included with this document. The data comes from all [place] facilities. Date Advance Directives Provider Source Feb 09, 2019 ADVANCE DIRECTIVE VAN MORENO [facility] Feb 08, 2019 ADVANCE DIRECTIVE SAMM BRINK [facility] Radiology Reports: +/- 30 days of the [...] the Encounter. The data comes from all [place] treatment facilities. Date/Time Radiology Report Provider Source Jan 10, 2024 07:[address] PULMONARY NODULES W/O CONTRAST: HIGINIO CAM [id number] -1950 M Exm Date: JAN 10, 2024@07:59 Req Phys: NADIA DHALIWAL Pat Loc: CWM/NO/PACT/TELE/NURSE MONITORING (Req'g Loc Img Loc: [facility]/CT Service: Unknown (Case [id number] COMPLETE) CT THORAX W/O CONT (CT Detailed) CPT:29145 Reason for Study: annual f/u -look for cancer Clinical History: Report Status: Verified Date Reported: JAN 10, 2024 Date Verified: JAN 10, 2024 Project Inspector E-Sig:/ES/RAKAN TERAN JR Report: Study: Noncontrast CT [...] Primary Interpreting Staff: RAKAN TERAN JR, Radiologist (Project Inspector) /RAKAN CA JR [facility] Encounter Notes: All associated encounter notes This section contains the clinical notes associated to the Encounter. Date/Time Encounter Note(s) Provider Source Jan 10, 2024 08:15 AM DENTISTRY NOTE: LOCAL TITLE: DENTAL NOTE STANDARD TITLE: DENTISTRY NOTE DATE OF NOTE: JAN 10, 2024@08:15 ENTRY DATE: JAN 10, 2024@08:17:13 AUTHOR: BELYSHEV,PATEL EXP COSIGNER: URGENCY: STATUS: COMPLETED Patient Name: HIGINIO CAM JR, : 1950, Age: 73 Visit: S: Jan 10, 2024@07:15 CWM/NO/DENTAL/RDH2 AM. Primary PCE Diagnosis: K03.6 (Deposits [accretions] on teeth). Dental Category: 15-OPC, Class IV. Treatment Status: Maintenance. Completed Care: (D1110) DENTAL PROPHYLAXIS ADULT. DX: K03.6 Deposits [Accretions] on Teeth (D1206) TOPICAL FLUORIDE VARNISH. DX: K03.6 Deposits [Accretions] on Teeth (D1330) ORAL HYGIENE INSTRUCTION. DX: K03.6 Deposits [Accretions] on Teeth (D9994) CASE MGMT-ORAL HEALTH LIT. DX: K03.6 Deposits [Accretions] on Teeth Periodontal Screening/Recording (PSR): 3-2-3 - - - 3-2-3 TIME OUT/Safety goals were verified immediately prior to the procedure. (Correct patient, procedure, site, position) Full name and date used. STERILIZATION MONITOR IN INSTRUMENT PACK CHECKED AND CONFIRMED CC: NONE PAST MEDICAL HISTORY: Reviewed, no contraindications for treatment LAST RADIOGRAPHS: PANO 10/15 BWX 07/19 NEW RADIOGRAPHS: 4 bwx SOFT TISSUE SCREENING: no abnormalities noted EXAMINATION: Dr Mack see dr galindo ORAL HYGIENE ASSESSMENT: plaque light stain light PERIODONTAL ASSESSMENT: calculus light inflamation light bop light probing deepth 2-4 mm recession general REVIEWED ORAL HEALTH REPORT: CARIES RISK: moderate GUM DISEASE: n/a ORAL CANCER RISK: n/a DENTAL TREATMENT PROVIDED: PROPHYLAXIS: hand scaling, piezo, austrian TOPICAL FLUORIDE APPLICATION - [place] pre post procedural rinse 30 seconds ORAL HYGIENE INSTRUCTIONS GIVEN TO PATIENT: review cervical brushing technique recomended 2 times a day, review flossing technique 2 times a day. Explain importance of daily plaque removal. Discuss possible cause of recession. DISPOSITION: 6 MONTHS RECARE Dental Alerts: Per current ADA and AAOS guidelines, antibiotic prophylaxis prior to dental procedures not routinely indicated. Oral Health Assessment Findings: Plaque Index: 1 - Slight Xerostomia: 0 - None Caries Risk: 3 - High Oral Hygiene: 2 - Fair - - - - - - - - - - - - - - - - - - - - - - - - - - - - - - NV: 6 mo recall /gio/ PATEL AGOSTO RDH RDH, DENTAL SERVICE Signed: 01/10/2024 08:17 PATEL AGOSTO [facility]
--- OUTSIDE RECORDS SUMMARY | 2024-11-02 06:39 | XMS_ITS ---
Author Name [facility] [place] Address [address] [place] [address] Care Team Providers Care Food Preparation Supervisor Name Role Phone YANETH JOE Primary Care [...] Policy 's Name Patient's Relationship to Policy [facility] (WNR) MEDICARE ADVANTAGE [facility] (WNR) Oct 28, 2019 [id number] IVANA CAM JONAS PATIENT Selected Encounter This section includes the information on record at [place] for the Encounter. Date/Time Encounter Type Encounter Description Reason Provider Source Jan 13, 2024 02:00 PM GROUP PS[facility]CHOTHERAPY [facility] ICD-10-CM F43.10 Post-traumatic stress disorder, unspecified MARK,ZEUS IE IHE Encounter Template Text not used by [place] Assessments - Encounter Diagnoses This section includes the primary and secondary diagnoses documented for the Encounter. Date/Time Primary/Secondary Diagnosis Diagnosis Name Provider Source Jan 13, 2024 03:38 PM PRIMARY Post-traumatic stress disorder, unspecified MARK,JAQUELIN E [facility] Plan of Treatment: Future Appointments (+ 6 months) and Future Tests (+/- 45 days) The Plan of Treatment section includes future care activities for the patient from all [facility]. This section includes future appointments and future orders which are active, pending or scheduled. Future Appointments This section includes appointments that were scheduled to occur 6 months from the date of the Encounter, up to a maximum of 20 appointments. The data comes from all [place] treatment facilities. Appointment Date/Time Appointment Type Appointme nt Facility Name Jan 20, 2024 02:00 PM AMBULATORY - PS[facility]CHIATRY [facility] [place] [facility] Jan 27, 2024 02:00 PM AMBULATORY - PSYCHIATRY [facility] [place] [facility] Feb 03, 2024 02:00 PM AMBULATORY - PSYCHIATRY [facility] [place] [facility] Feb 10, 2024 02:00 PM AMBULATORY - PSYCHIATRY [facility] [place] [facility] Feb 17, 2024 02:00 PM AMBULATORY - PSYCHIATRY [facility] [place] [facility] Feb 24, 2024 02:00 PM AMBULATORY - PSYCHIATRY [facility] [place] [facility] March 09, 2024 09:00 AM AMBULATORY - MEDICINE [facility] [place] [facility] March 09, 2024 02:00 PM AMBULATORY - PSYCHIATRY [facility] [place] [facility] March 16, 2024 02:00 PM AMBULATORY - PSYCHIATRY [facility] [place] [facility] March 26, 2024 09:00 AM AMBULATORY - PSYCHIATRY [facility] [place] [facility] Mar 30, 2024 02:00 PM AMBULATORY - PSYCHIATRY [facility] [place] [facility] Apr 06, 2024 02:00 PM AMBULATORY - PSYCHIATRY [facility] [place] [facility] May 04, 2024 02:00 PM AMBULATORY - PSYCHIATRY [facility] [place] [facility] May 11, 2024 02:00 PM AMBULATORY - PSYCHIATRY [facility] [place] [facility] May 18, 2024 02:00 PM AMBULATORY - PSYCHIATRY [facility] [place] [facility] Jun 01, 2024 02:00 PM AMBULATORY - PSYCHIATRY [facility] [place] [facility] Jun 08, 2024 02:00 PM AMBULATORY - PSYCHIATRY [facility] [place] [facility] Jun 15, 2024 02:00 PM AMBULATORY - PSYCHIATRY [place] [facility] [place] [facility] Jun 22, 2024 02:00 PM AMBULATORY - PSYCHIATRY [place] [facility] [place] [facility] Jul 13, 2024 02:00 PM AMBULATORY - PSYCHIATRY [place] [facility] [place] [facility] Social History: Smoking Status (Most current) and Tobacco Use (All prior to encounter date) This section includes the most current, and the historical, smoking and tobacco- related health factors from the [place] facility where the Encounter took place. Current Smoking Status This section includes the most current smoking, or tobacco-related health factor, from the [place] facility where the Encounter took place. Date/Time Current Smoking Status Comment Facil it March 18, 2023 02:30 PM VA-TOBACCO FORMER USER [place] [facility] [place] [facility] Tobacco Use History This section includes a history of the smoking, or tobacco-related health factors, that were collected on or before the date of the Encounter. The data comes from the [place] facility where the Encounter took place. Date/Time Smoking Status/Tobac co Use Comment Facility March 18, 2023 02:30 PM VA-TOBACCO QUIT 15 YRS OR MORE [place] [facility] [place] [facility] Jan 11, 2022 08:30 AM VA-TOBACCO FORMER USER [facility] [place] [facility] Jan 11, 2022 08:30 AM VA-TOBACCO QUIT 15 YRS OR MORE [facility] [place] [facility] Dec 26, 2020 09:00 AM VA-TOBACCO FORMER USER [place] [facility] [place] [facility] Dec 26, 2020 09:00 AM VA-TOBACCO QUIT 15 YRS OR MORE [facility] [place] [facility] Dec 08, 2019 09:16 AM VA-TOBACCO FORMER USER [facility] [place] [facility] Dec 08, 2019 09:16 AM VA-TOBACCO QUIT 15 YRS OR MORE [facility] [place] [facility] Oct 14, 2018 02:56 PM VA-TOBACCO FORMER USER [place] [facility] [place] [facility] Oct 14, 2018 02:56 PM VA-TOBACCO QUIT 15 YRS OR MORE [place] [facility] [place] [facility] Dec 12, 2017 09:20 AM QUIT TOBACCO USE > 7 YEARS AGO quit > 30 yrs ( 2-3 pks a day) [facility] Advance Directives: All historical and current Section Date Range: From patient's date of to the date document was created. This section includes ALL of a patient's completed or amended [place] Advance and Rescinded Directives. The entries below indicate that a directive exists for the patient, but an actual copy is not included with this document. The data comes from all [place] facilities. Date Advance Directives Provider Source Feb 09, 2019 ADVANCE DIRECTIVE VAN MORENO [facility] Feb 08, 2019 ADVANCE DIRECTIVE SAMM BRINK V [facility] Radiology Reports: +/- 30 days [...] the Encounter. The data comes from all [place] treatment facilities. Date/Time Radiology Report Provider Source Jan 10, 2024 07:[address] PULMONARY NODULES W/O CONTRAST: HIGINIO CAM JR [id number] -1950 M Ex Date: JAN 10, 2024@07:59 Req Phys: NADIA DHALIWAL Pat Loc: CWM/NO/PACT/TELE/SENIOR HADOOP DEVELOPER (Req'g Loc Img Loc: [facility]/CT Service: Unknown (Case [id number] COMPLETE) CT THORAX W/O CONT (CT Detailed) CPT:67763 Reason for Study: annual f/u -look for cancer Clinical History: Report Status: Verified Date Reported: JAN 10, 2024 Date Verified: JAN 10, 2024 Wire Basket Maker E-Sig:/ES/RAKAN TERAN JR Report: Study: Noncontrast CT [...] Primary Interpreting Staff: RAKAN TERAN JR, Radiologist (Wire Basket Maker) /RAKAN CA JR [facility] Encounter Notes: All associated encounter notes This section contains the clinical notes associated to the Encounter. Date/Time Encounter Note(s) Provider Source Jan 13, 2024 02:00 PM SOCIAL WORK GROUP COUNSELING NOTE: LOCAL TITLE: SOCIAL WORK GROUP NOTE STANDARD TITLE: SOCIAL WORK GROUP COUNSELING NOTE DATE OF NOTE: JAN 13, 2024@14:00 ENTRY DATE: JAN 13, 2024@15:32:50 AUTHOR: MANDY FLORES COSIGNER: URGENCY: STATUS: COMPLETED This was a 60-minute supportive psychotherapy group for [employer] Veterans with PTSD. 11 members were present today. Topics discussed today included: - health issues and updates, including as well for loved ones. - psychosocial stressors including legal issues, family, and housing. - recovery issues regarding alcohol use. -dealing with loss, particularly the passing of spouses. Members provided one another support and feedback. Next group will be 01/20/2024 shared he was doing well with no new problems or concerns. /gio/ MANDY [facility]IN[facility] Signed: 01/13/2024 15:39 MANDY FLORES [place] [facility]
--- OUTSIDE RECORDS SUMMARY | 2024-11-02 06:39 | XMS_ITS ---
Author Name [facility] [place] Address [address] [place] [address] Care Team Providers Care Vamp Wetter Name Role Phone YANETH JOE Primary Care [...] Policy 's Name Patient's Relationship to Policy [facility] (WNR) MEDICARE ADVANTAGE [facility] (WNR) Oct 28, 2019 [id number] TUTU,IVANA MCDANIEL PATIENT Selected Encounter This section includes the information on record at [place] for the Encounter. Date/Time Encounter Type Encounter Description Reason Pro vider Source Jan 18, 2024 08:15 AM Outpatient Encounter TELEPHONE PRIMARY CARE IHE Encounter Template Text not used by [place] Plan of Treatment: Future Appointments (+ 6 months) and Future Tests (+/- 45 days) The Plan of Treatment section includes future care activities for the patient from all [place] treatmentfacilities. This section includes future appointments and future orders which are active, pending or scheduled. Future Appointments This section includes appointments that were scheduled to occur 6 months from the date of the Encounter, up to a maximum of 20 appointments. The data comes from all [place] treatment facilities. Appointment Date/Time Appointment Type Appointme nt Facility Name Jan 20, 2024 02:00 PM AMBULATORY [facility] [place] [facility] Jan 27, 2024 02:00 PM AMBULAT[facility] Feb 03, 2024 02:00 PM AMBULAT[facility] Feb 10, 2024 02:00 PM AMBULATORY [facility] Feb 17, 2024 02:00 PM AMBULAT[facility] Feb 24, 2024 02:00 PM AMBULAT[facility] March 09, 2024 09:00 AM [facility] [place] [facility] March 09, 2024 02:00 PM AM[facility]UL[facility] [place] [facility] March 16, 2024 02:00 PM AMBULATORY [facility] [place] [facility] March 26, 2024 09:00 AM AMBULATORY - PS[facility]RY [facility] [place] [facility] Mar 30, 2024 02:00 PM AMBULATORY - PS[facility] [place] [facility] Apr 06, 2024 02:00 PM AMBULATORY [facility] PS[facility] [place] [facility] May 04, 2024 02:00 PM AMBULATORY [facility] PS[facility] [place] [facility] May 11, 2024 02:00 PM AMBULATORY - PS[facility] [place] [facility] May 18, 2024 02:00 PM AMBULATORY - PS[facility] [place] [facility] Jun 01, 2024 02:00 PM AMBULATORY [facility] PS[facility] [place] [facility] Jun 08, 2024 02:00 PM AMBULATORY [facility] PS[facility] [place] [facility] Jun 15, 2024 02:00 PM AMBULATORY [facility] PS[facility] [place] [facility] Jun 22, 2024 02:00 PM AMBULATORY [facility] PS[facility] [place] [facility] Jul 13, 2024 02:00 PM AMBULATORY [facility] PS[facility] [place] [facility] Social History: Smoking Status (Most current) and Tobacco Use (All prior to encounter date) This section includes the most current, and the historical, smoking and tobacco- related health factors from the [place] facility where the Encounter took place. Current Smoking Status This section includes the most current smoking, or tobacco-related health factor, from the [place] facility where the Encounter took place. Date/Time Current Smoking Status Comment Facil it March 18, 2023 02:30 PM VA-TOBACCO QUIT 15 YRS OR MORE [facility] Tobacco Use History This section includes a history of the smoking, or tobacco-related health factors, that were collected on or before the date of the Encounter. The data comes from the [place] facility where the Encounter took place. Date/Time Smoking Status/Tobac co Use Comment Facility March 18, 2023 02:30 PM VA-TOBACCO QUIT 15 YRS OR MORE [facility] [place] [facility] Jan 11, 2022 08:30 AM VA-TOBACCO FORMER USER [facility] [place] [facility] Jan 11, 2022 08:30 AM VA-TOBACCO QUIT 15 YRS OR MORE [facility] [place] [facility] Dec 26, 2020 09:00 AM VA-TOBACCO FORMER USER [facility] [place] [facility] Dec 26, 2020 09:00 AM VA-TOBACCO QUIT 15 YRS OR MORE [facility] [place] [facility] Dec 08, 2019 09:16 AM VA-TOBACCO FORMER USER [facility] [place] [facility] Dec 08, 2019 09:16 AM VA-TOBACCO QUIT 15 YRS OR MORE [facility] [place] [facility] Oct 14, 2018 02:56 PM VA-TOBACCO FORMER USER [facility] [place] [facility] Oct 14, 2018 02:56 PM VA-TOBACCO QUIT 15 YRS OR MORE [facility] [place] [facility] Dec 12, 2017 09:20 AM QUIT TOBACCO USE > 7 YEARS AGO quit > 30 yrs ( 2-3 pks a day) [place] [facility] [place] [facility] Advance Directives: All historical and current Section Date Range: From patient's date of to the date document was created. This section includes ALL of a patient's completed or amended [place] Advance and Rescinded Directives. The entries below indicate that a directive exists for the patient, but an actual copy is not included with this document. The data comes from all [place] facilities. Date Advance Directives Provider Source Feb 09, 2019 ADVANCE DIRECTIVE VAN MORENO [facility] Feb 08, 2019 ADVANCE DIRECTIVE SAMM BRINK [facility] Radiology Reports: +/- 30 days of [...] the Encounter. The data comes from all [place] treatment facilities. Date/Time Radiology Report Provider Source Jan 10, 2024 07:[address] PULMONARY NODULES W/O CONTRAST: HIGINIO CAM JR [id number] -1950 M Exm Date: JAN 10, 2024@07:59 Req Phys: NADIA DHALIWAL Loc: CWM/NO/PACT/TELE/CLINICAL CYTOPATHOLOGIST (Req'g Loc Img Loc: [facility]/CT Service: Unknown (Case [id number] COMPLETE) CT THORAX W/O CONT (CT Detailed) CPT:03746 Reason for Study: annual f/u -look for cancer Clinical History: Report Status: Verified Date Reported: JAN 10, 2024 Date Verified: JAN 10, 2024 Bender Helper E-Sig:/ES/RAKAN TERAN JR Report: Study: Noncontrast CT [...] Primary Interpreting Staff: RAKAN TERAN JR, Radiologist (Bender Helper) /RAKAN CA JR [facility] Encounter Notes: All associated encounter notes This section contains the clinical notes associated to the Encounter. Date/Time Encounter Note(s) Provider Source Jan 18, 2024 08:15 AM LETTERS: LOCAL TITLE: PATIENT LETTER (T) STANDARD TITLE: LETTERS DATE OF NOTE: JAN 18, 2024@08:15 ENTRY DATE: JAN 18, 2024@08:15:19 AUTHOR: NADIA DHALIWAL COSIGNER: URGENCY: STATUS: COMPLETED DEPARTMENT OF [facility] Toll Free Number Primary Care Telephone Assistance can be reached at extension [phone] [facility] scheduling can be reached at extension [phone] [facility] scheduling can be reached at ext [phone] HIGINIO CAM JR [address], [place], [address] [address] , The CT of your chest revealed stable findings. Your recent test results are as follows: Date Procedure CPT Status Case # 01/10/2024 CT THORAX W/O CONT [id number] Verified 465 No new abnormality identified, as described above. Please call if you have any questions or concerns. Upcoming Appointments: 01/20/2024 14:00 CWM/NO/[facility] 01/27/2024 14:00 CWM/NO/M[facility] 02/03/2024 14:00 CWM/NO/MHC/[facility] 03/09/2024 09:00 CWM/NO/PACT EIGHT 03/26/2024 09:00 CWM/NO/MHC/CLINICAL CYTOPATHOLOGIST FELICIANO 07/16/2024 07:15 CWM/NO/DENTAL/RDH2 AM Sincerely, Your Primary Care Team [facility] [address] [address] [place] [address] [phone] [place] [facility] [address] [place] [address] [place] [address] [phone] [place] [facility] [address] [facility],[address] Floor [address] [place] [id number] [place] [address] NADIA DHALIWAL [facility]
--- OUTSIDE RECORDS SUMMARY | 2024-11-02 06:39 | XMS_ITS ---
Author Name [facility] [place] Address [address] [place] [id number] Care Team Providers Care Lithographic Retoucher Apprentice Name Role Phone YANETH JOE Primary Care [...] Policy 's Name Patient's Relationship to Policy [facility] (WNR) MEDICARE ADVANTAGE [facility] (WNR) Oct 28, 2019 [id number] IVANA CAM JONAS PATIENT Selected Encounter This section includes the information on record at [place] for the Encounter. Date/Time Encounter Type Encounter Description Reason Provider Source Jan 06, 2024 02:00 PM GROUP PS[facility]CH[facility]Y [facility] ICD-10-CM F43.10 Post-traumatic stress disorder, unspecified MARK,ZEUS IE IHE Encounter Template Text not used by [place] Assessments - Encounter Diagnoses This section includes the primary and secondary diagnoses documented for the Encounter. Date/Time Primary/Secondary Diagnosis Diagnosis Name Provider Source Jan 07, 2024 08:30 AM PRIMARY Post-traumatic stress disorder, unspecified MARK,[facility] Plan of Treatment: Future Appointments (+ 6 [...] 20 appointments. The data comes from all [place] treatment facilities. Appointment Date/Time Appointment Type Appointme nt Facility Name Jan 10, 2024 07:15 AM AMBULATORY - NONE [facility] [place] [facility] Jan 10, 2024 07:30 AM AMBULATORY - NONE [facility] [place] [facility] Jan 10, 2024 08:30 AM AMBULATORY - NONE [facility] [place] [facility] Jan 13, 2024 02:00 PM AMBULATORY - PS[facility]IATRY [facility] [place] [facility] Jan 20, 2024 02:00 PM AMBULATORY - PS[facility] [place] [facility] Jan 27, 2024 02:00 PM AMBULATORY [facility] PS[facility]RY [facility] [place] [facility] Feb 03, 2024 02:00 PM AMBULATORY - PS[facility]RY [facility] [place] [facility] Feb 10, 2024 02:00 PM AMBULATORY [facility] PS[facility]RY [facility] [place] [facility] Feb 17, 2024 02:00 PM AMBULATORY - PS[facility]RY [facility] [place] [facility] Feb 24, 2024 02:00 PM AMBULATORY - PS[facility]RY [facility] [place] [facility] March 09, 2024 09:00 AM AMBULATORY [facility] MEDICINE [facility] [place] [facility] March 09, 2024 02:00 PM AMBULATORY - PS[facility]CHIATRY [facility] [place] [facility] March 16, 2024 02:00 PM AMBULATORY - PS[facility]CHIATRY [facility] [place] [facility] March 26, 2024 09:00 AM AMBULATORY - PS[facility]CHIATRY [facility] [place] [facility] Mar 30, 2024 02:00 PM AMBULATORY - PS[facility]CHIATRY [facility] [place] [facility] Apr 06, 2024 02:00 PM AMBULATORY - PS[facility]RY [facility] [place] [facility] May 04, 2024 02:00 PM AMBULATORY - PS[facility]RY [facility] [place] [facility] May 11, 2024 02:00 PM AMBULATORY - PS[place]IATRY [place] [facility] [place] [facility] May 18, 2024 02:00 PM AMBULATORY - PS[place]IATRY [place] [facility] [place] [facility] Jun 01, 2024 02:00 PM AMBULATORY [place]ATRY [place] [facility] [place] [facility] Social History: Smoking Status (Most current) and Tobacco Use (All prior to encounter date) This section includes the most current, and the historical, smoking and tobacco- related health factors from the [place] facility where the Encounter took place. Current Smoking Status This section includes the most current smoking, or tobacco-related health factor, from the [place] facility where the Encounter took place. Date/Time Current Smoking Status Comment Facil it March 18, 2023 02:30 PM VA-TOBACCO FORMER USER [place] [facility] [place] [facility] Tobacco Use History This section includes a history of the smoking, or tobacco-related health factors, that were collected on or before the date of the Encounter. The data comes from the [place] facility where the Encounter took place. Date/Time Smoking Status/Tobac co Use Comment Facility March 18, 2023 02:30 PM VA-TOBACCO QUIT 15 YRS OR MORE [place] [facility] [place] [facility] Jan 11, 2022 08:30 AM VA-TOBACCO FORMER USER [facility] [place] [facility] Jan 11, 2022 08:30 AM VA-TOBACCO QUIT 15 YRS OR MORE [facility] [place] [facility] Dec 26, 2020 09:00 AM VA-TOBACCO FORMER USER [place] [facility] [place] [facility] Dec 26, 2020 09:00 AM VA-TOBACCO QUIT 15 YRS OR MORE [facility] [place] [facility] Dec 08, 2019 09:16 AM VA-TOBACCO FORMER USER [facility] [place] [facility] Dec 08, 2019 09:16 AM VA-TOBACCO QUIT 15 YRS OR MORE [facility] [place] [facility] Oct 14, 2018 02:56 PM VA-TOBACCO FORMER USER [facility] [place] [facility] Oct 14, 2018 02:56 PM VA-TOBACCO QUIT 15 YRS OR MORE [place] [facility] [place] [facility] Dec 12, 2017 09:20 AM QUIT TOBACCO USE > 7 YEARS AGO quit > 30 yrs ( 2-3 pks a day) [facility] Advance Directives: All historical and current Section Date Range: From patient's date of to the date document was created. This section includes ALL of a patient's completed or amended [place] Advance and Rescinded Directives. The entries below indicate that a directive exists for the patient, but an actual copy is not included with this document. The data comes from all [place] facilities. Date Advance Directives Provider Source Feb 09, 2019 ADVANCE DIRECTIVE VAN MORENO [facility] Feb 08, 2019 ADVANCE DIRECTIVE SAMM BRINK [facility] Radiology Reports: +/- 30 days of [...] the Encounter. The data comes from all [place] treatment facilities. Date/Time Radiology Report Provider Source Jan 10, 2024 07:[address] PULMONARY NODULES W/O CONTRAST: HIGINIO CAM JR [id number] -[id number] M Ex Date: JAN 10, 2024@07:59 Req Phys: NADIA DHALIWAL Pat Loc: CWM/NO/PACT/TELE/SECURITY SYSTEM ADMINISTRATOR (Req'g Loc Img Loc: [facility]/CT Service: Unknown (Case 465 COMPLETE) CT THORAX W/O CONT (CT Detailed) CPT:01606 Reason for Study: annual f/u -look for cancer Clinical History: Report Status: Verified Date Reported: JAN 10, 2024 Date Verified: JAN 10, 2024 Epic Beacon Analyst E-Sig:/ES/RAKAN TERAN JR Report: Study: Noncontrast CT [...] Primary Interpreting Staff: RAKAN TERAN JR, Radiologist (Epic Beacon Analyst) /RAKAN CA JR [facility] Encounter Notes: All associated encounter notes This section contains the clinical notes associated to the Encounter. Date/Time Encounter Note(s) Provider Source Jan 06, 2024 02:00 PM SOCIAL WORK GROUP COUNSELING NOTE: LOCAL TITLE: SOCIAL WORK GROUP NOTE STANDARD TITLE: SOCIAL WORK GROUP COUNSELING NOTE DATE OF NOTE: JAN 06, 2024@14:00 ENTRY DATE: JAN 07, 2024@08:08:07 AUTHOR: MANDY FLORES COSIGNER: URGENCY: STATUS: COMPLETED This was a 60-minute supportive psychotherapy group for [employer] Veterans with PTSD. 10 members were present today. Topics discussed today included: - health issues and updates, including as well for loved ones. - seeking help when PTSD symptoms are triggered/increased, such as seeking a medication evaluation or individual psychotherapy. - concerns for one group member who is haing family/housing difficulties. - social activities, including coordinating a social gathering for members outside of group time. Members provided one another support and feedback. Next group will be 01/13/2024 [place] was attentive and participatory and reported he was doing well and continues his morning walks. /gio/ MANDY FLORES [facility] CLINICAL PLOW MECHANIC Signed: 01/07/2024 08:32 [facility]ES [facility] [place] [facility]
--- OUTSIDE RECORDS SUMMARY | 2024-11-02 06:39 | XMS_ITS | Encounter Summary ---
Author Name [facility] [place] Organization [place] Address [address] [place] [id number] Care Team Providers Care Catering Associate Name Role Phone YANETH JOE Primary Care [...] Policy 's Name Patient's Relationship to Policy [facility] ([facility]) MEDICARE ADVANTAGE [facility] ([facility]) Oct 28, 2019 [id number] IVANA CAM PATIENT Selected Encounter This section includes the information on record at [place] for the Encounter. Date/Time Encounter Type Encounter Description Reason Provider Source Jan 10, 2024 07:30 AM DENTAL BITEWING FOUR IMAGES DENTAL ICD-10-CM K08.9 Disorder of teeth and supporting structures, unspecified MIKAELA TORRES Ayah Encounter Template Text not used by [place] Assessments - Encounter Diagnoses This section includes the primary and secondary diagnoses documented for the Encounter. Date/Time Primary/Secondary Diagnosis Diagnosis Name Provider Source Jan 10, 2024 08:31 AM PRIMARY Disorder of teeth and supporting structures, unspecified MIKAELA TORRES [facility] Plan of Treatment: Future Appointments (+ 6 months) and Future Tests (+/- 45 days) The Plan of Treatment section includes future care activities for the patient from all [facility]. This section includes future appointments and future orders which are active, pending or scheduled. Future Appointments This section includes appointments that were scheduled to occur 6 months from the date of the Encounter, up to a maximum of 20 appointments. The data comes from all [place] treatment facilities. Appointment Date/Time Appointment Type Appointme nt Facility Name Jan 13, 2024 02:00 PM AMBULATORY - [facility]IATRY [facility] [place] [facility] Jan 20, 2024 02:00 PM AMBULATORY - [facility]ATRY [facility] [place] [facility] Jan 27, 2024 02:00 PM AMBULATORY - PS[facility]CHIATRY [facility] [place] [facility] Feb 03, 2024 02:00 PM AMBULATORY - PS[facility]CHIATRY [facility] [place] [facility] Feb 10, 2024 02:00 PM AMBULATORY - PS[facility]CHIATRY [facility] [place] [facility] Feb 17, 2024 02:00 PM AMBULATORY - PS[facility]CHIATRY [facility] [place] [facility] Feb 24, 2024 02:00 PM AMBULATORY - PS[facility]CHIATRY [facility] [place] [facility] March 09, 2024 09:00 AM AMBULATORY - MEDICINE [facility] [place] [facility] March 09, 2024 02:00 PM AMBULATORY - PS[facility]CHIATRY [facility] [place] [facility] March 16, 2024 02:00 PM AMBULATORY - PS[facility]CHIATRY [facility] [place] [facility] March 26, 2024 09:00 AM AMBULATORY - PSYCHIATRY [facility] [place] [facility] Mar 30, 2024 02:00 PM AMBULATORY - PSYCHIATRY [facility] [place] [facility] Apr 06, 2024 02:00 PM AMBULATORY - PS[facility]CHIATRY [facility] [place] [facility] May 04, 2024 02:00 PM AMBULATORY - PS[facility]CHIATRY [facility] [place] [facility] May 11, 2024 02:00 PM AMBULATORY - PS[facility]CHIATRY [facility] [place] [facility] May 18, 2024 02:00 PM AMBULATORY - PSYCHIATRY [facility] [place] [facility] Jun 01, 2024 02:00 PM AMBULATORY - PS[facility]CHIATRY [facility] [place] [facility] Jun 08, 2024 02:00 PM AMBULATORY - PSYCHIATRY [facility] [place] [facility] Jun 15, 2024 02:00 PM AMBULATORY - PS[facility]CHIATRY [facility] [place] [facility] Jun 22, 2024 02:00 PM AMBULATORY - PSYCHIATRY [facility] [place] [facility] Vital Signs: All taken on the encounter date This section contains inpatient and outpatient Vital Signs collected on the date of the Encounter. Date/Time Temperature Pulse Blood Pressure Respiratory Rate SP02 Pain Height Weight Body Mass Index Source Jan 10, 2024 07:22 AM 67 138/85 0 [facility] [place] [facility] Social History: Smoking Status (Most current) and Tobacco Use (All prior to encounter date) This section includes the most current, and the historical, smoking and tobacco- related health factors from the [place] facility where the Encounter took place. Current Smoking Status This section includes the most current smoking, or tobacco-related health factor, from the [place] facility where the Encounter took place. Date/Time Current Smoking Status Comment Facil it March 18, 2023 02:30 PM VA-TOBACCO [facility] USER [place] [facility] Tobacco Use History This section includes a history of the smoking, or tobacco-related health factors, that were collected on or before the date of the Encounter. The data comes from the [place] facility where the Encounter took place. Date/Time Smoking Status/Tobac co Use Comment Facility March 18, 2023 02:30 PM VA-TOBACCO QUIT 15 YRS OR MORE [facility] [place] [facility] Jan 11, 2022 08:30 AM VA-TOBACCO FORMER USER [facility] [place] [facility] Jan 11, 2022 08:30 AM VA-TOBACCO QUIT 15 YRS OR MORE [facility] [place] [facility] Dec 26, 2020 09:00 AM VA-TOBACCO FORMER USER [facility] [place] [facility] Dec 26, 2020 09:00 AM VA-TOBACCO QUIT 15 YRS OR MORE [facility] [place] [facility] Dec 08, 2019 09:16 AM VA-TOBACCO FORMER USER [facility] [place] [facility] Dec 08, 2019 09:16 AM VA-TOBACCO QUIT 15 YRS OR MORE [facility] [place] [facility] Oct 14, 2018 02:56 PM CO-TOBACCO FORMER USER [facility] Oct 14, 2018 02:56 PM VA-TOBACCO QUIT 15 YRS OR MORE [facility] Dec 12, 2017 09:20 AM QUIT TOBACCO USE > 7 YEARS AGO quit > 30 yrs ( 2-3 pks a day) [facility] Advance Directives: All historical and current Section Date Range: From patient's date of to the date document was created. This section includes ALL of a patient's completed or amended [place] Advance and Rescinded Directives. The entries below indicate that a directive exists for the patient, but an actual copy is not included with this document. The data comes from all [place] facilities. Date Advance Directives Provider Source Feb 09, 2019 ADVANCE DIRECTIVE VAN MORENO [facility] Feb 08, 2019 ADVANCE DIRECTIVE SAMM BRINK [facility] Radiology Reports: +/- 30 days of the [...] the Encounter. The data comes from all [place] treatment facilities. Date/Time Radiology Report Provider Source Jan 10, 2024 07:[address] PULMONARY NODULES W/O CONTRAST: HIGINIO CAM JR [id number] -1950 M Exm Date: JAN 10, 2024@07:59 Req Phys: NADIA DHALIWAL Pat Loc: CWM/NO/PACT/TELE/OVERSEER KOSHER KITCHEN (Req'g Loc Img Loc: [place]/CT Service: Unknown (Case [id number] COMPLETE) CT THORAX W/O CONT (CT Detailed) CPT:95889 Reason for Study: annual f/u -look for cancer Clinical History: Report Status: Verified Date Reported: JAN 10, 2024 Date Verified: JAN 10, 2024 Revenue Manager E-Sig:/ES/RAKAN TERAN JR Report: Study: Noncontrast CT [...] Primary Interpreting Staff: RAKAN TERAN JR, Radiologist (Revenue Manager) /RAKAN CA JR [facility] Encounter Notes: All associated encounter notes This section contains the clinical notes associated to the Encounter. Date/Time Encounter Note(s) Provider Source Jan 10, 2024 08:28 AM DENTISTRY NOTE: LOCAL TITLE: DENTAL NOTE STANDARD TITLE: DENTISTRY NOTE DATE OF NOTE: JAN 10, 2024@08:28 ENTRY DATE: JAN 10, 2024@08:31:55 AUTHOR: MIKAELA TORRES COSIGNER: URGENCY: STATUS: COMPLETED Patient Name: HIGINIO CAM JR, : 1950, Age: 73 Visit: V: Jan 10, 2024@07:30 CWM/NO/DENTAL/DMD3 AM. 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 Dental Category: 15-OPC, Class IV. Treatment Status: Maintenance. Completed Care: (D0150) COMPREHENSVE ORAL EVALUATION. DX: K08.9 Disorder of Teeth and Supporting Structures, unspecified (D0274) DENTAL BITEWING FOUR IMAGES. DX: K08.9 Disorder of Teeth and Supporting Structures, unspecified The patient was identified by full name and social security number Reviewed the patient's medical/dental history, medications and allergies. I performed medication reconciliation within the scope of my practice. All medications related to dentistry are up to date. Discussed above proposed treatment plan. Patient understands and agrees with the treatment plan. Presentation/Chief Complaint: Patient presents for comprehensive oral evaluation Patient has no dental complaints Vital Signs: Dental Pain (0-10): 0 General Pain (0-10): 0 01/10/2024 07:22 Blood Pressure (mmHg): 138/85 01/10/2024 07:22 Pulse (BPM): 67 01/10/2024 07:22 Past Medical History and Medications: No significant changes since the last dental visit Social History: Patient reports the following habits: Alcohol past use Radiographic Findings: Radiographic findings consistent with charted entries Alveolar bone loss noted - generalized. Oral Examination: Oral Health Assessment Findings: Create Date: 01/10/2024 - PATEL AGOSTO Plaque Index: 1 - Slight Xerostomia: 0 - None Caries Risk: 3 - High Oral Hygiene: 2 - Fair Dentition exhibits no apparent evidence of dental pathology at this visit No Significant Tooth Mobility Noted PSR Exam: Create Date: 01/10/2024 - PATEL AGOSTO 3-2-3 - - - 3-2-3 Periodontal Assessment: Chronic Slight Generalized Periodontitis TMJ Findings: History: Patient reports no symptoms associated with TMJ. Clinical Findings: Occlusal Findings: Normal Mandibular relationship Assessment/Plan: No urgent dental needs or acute dental infections noted on examination. No treatment required at this time Disposition: Next visit: recall/prn - - - - - - - - - - - - - - - - - - - - - - - - - - - - - - /gio/ MIKAELA TORRES DMD Staff Dentist Signed: 01/10/2024 08:31 MIKAELA TORERS [facility] [place] [facility] Jan 10, 2024 07:59 AM DENTISTRY CONSULT: LOCAL TITLE: CONSULT REPORT/DENTAL STANDARD TITLE: DENTISTRY CONSULT DATE OF NOTE: JAN 10, 2024@07:59 ENTRY DATE: JAN 10, 2024@07:59:52 AUTHOR: MIKAELA TORRES EXP COSIGNER: URGENCY: STATUS: COMPLETED Current PC Provider: YANETH JOE Current PC Team: NO PACT 8 *WH* Current Pat. Status: Outpatient UCID: [id number] Primary Eligibility: SERVICE CONNECTED 50% to 100%(VERIFIED) Patient Type: [place] OEF/OIF: NO Service Connection/Rated Disabilities [place] Percent: 70% Rated Disabilities: POST-TRAUMATIC STRESS DISORDER (70%) TINNITUS (10%) IMPAIRED HEARING (0%) Order Information To Service: DENTAL IMAGING From Service: CWM/NO/DENTAL/RDH2 AM Requesting Provider: PATEL AGOSTO Service is to be rendered on an OUTPATIENT basis Place: Sample Room Supervisor's choice Urgency: Routine Clinically Ind. Date: Jan 10, 2024 DST ID: Orderable Item: DENTAL IMAGING Consult: Consult Request Provisional Diagnosis: Dental Caries, unspecified(ICD-10-CM K02.9) Reason For Request: Orthopan Inter-facility Information This is not an inter-facility consult request. Status: PENDING Last Action: CPRS RELEASED ORDER Facility Activity Date/Time/Zone Responsible Person Entered By CPRS RELEASED ORDER 01/10/24 07:19 PATEL AGOSTO NADEZHDA Note: TIME ZONE is local if not indicated No local JULIEN results or Medicine results available for this consult ======= END ======== /gio/ MIKAELA TORRES DMD Staff Dentist Signed: 01/10/2024 08:00 MIKAEL[facility] TORRES [facility]
--- OUTSIDE RECORDS SUMMARY | 2024-11-02 06:39 | XMS_ITS ---
Author Name [facility] [place] Organization [place] Address [address] [place] [id number] Care Team Providers Care Senior Linux Engineer Name Role Phone YANETH JOE Primary Care [...] Policy 's Name Patient's Relationship to Policy [facility] (WNR) MEDICARE ADVANTAGE [facility] (WNR) Oct 28, 2019 [id number] TUTU,JE JONAS PATIENT Selected Encounter This section includes the information on record at [place] for the Encounter. Date/Time Encounter Type Encounter Description Reason Pro vider Source Jan 09, 2024 10:06 AM Outpatient Encounter DENTAL IHE Encounter Template Text not used by [place] Plan of Treatment: Future Appointments (+ 6 months) and Future Tests (+/- 45 days) The Plan of Treatment section includes future care activities for the patient from all [place] treatmentfacilities. This section includes future appointments and future orders which are active, pending or scheduled. Future Appointments This section includes appointments that were scheduled to occur 6 months from the date of the Encounter, up to a maximum of 20 appointments. The data comes from all [place] treatment facilities. Appointment Date/Time Appointment Type Appointme nt Facility Name Jan 10, 2024 07:15 AM AMBULATORY - NONE [facility] [place] [facility] Jan 10, 2024 07:30 AM AMBULATORY - NONE [facility] [place] [facility] Jan 10, 2024 08:30 AM AMBULATORY - NONE [facility] [place] [facility] Jan 13, 2024 02:00 PM AMBULATORY - PSYCHIATRY [facility] [place] [facility] Jan 20, 2024 02:00 PM AMBULATORY - [...] PSYCHIATRY [facility] [place] [facility] March 16, 2024 02:00 PM AMBULATORY - PS[facility]CHIATRY [facility] [place] [facility] March 26, 2024 09:00 AM AMBULATORY - PSYCHIATRY [facility] [place] [facility] Mar 30, 2024 02:00 PM AMBULATORY - PSYCHIATRY [facility] [place] [facility] Apr 06, 2024 02:00 PM AMBULATORY - PSYCHIATRY [facility] [place] [facility] May 04, 2024 02:00 PM AMBULATORY - PSYCHIATRY [facility] [place] [facility] May 11, 2024 02:00 PM AMBULATORY - PS[facility]IATRY [facility] [place] [facility] May 18, 2024 02:00 PM AMBULATORY - PSYCHIATRY [facility] [place] [facility] Jun 01, 2024 02:00 PM AMBULATORY - PSYCHIATRY [facility] [place] [facility] Social History: Smoking Status (Most current) and Tobacco Use (All prior to encounter date) This section includes the most current, and the historical, smoking and tobacco- related health factors from the [place] facility where the Encounter took place. Current Smoking Status This section includes the most current smoking, or tobacco-related health factor, from the [place] facility where the Encounter took place. Date/Time Current Smoking Status Comment Facil it March 18, 2023 02:30 PM VA-TOBACCO FORMER USER [place] [facility] [place] [facility] Tobacco Use History This section includes a history of the smoking, or tobacco-related health factors, that were collected on or before the date of the Encounter. The data comes from the [place] facility where the Encounter took place. Date/Time Smoking Status/Tobac co Use Comment Facility March 18, 2023 02:30 PM VA-TOBACCO QUIT 15 YRS OR MORE [place] [facility] [place] [facility] Jan 11, 2022 08:30 AM VA-TOBACCO FORMER USER [facility] [place] [facility] Jan 11, 2022 08:30 AM VA-TOBACCO QUIT 15 YRS OR MORE [place] [facility] [place] [facility] Dec 26, 2020 09:00 AM VA-TOBACCO FORMER USER [place] [facility] [place] [facility] Dec 26, 2020 09:00 AM VA-TOBACCO QUIT 15 YRS OR MORE [facility] [place] [facility] Dec 08, 2019 09:16 AM VA-TOBACCO FORMER USER [place] [facility] [place] [facility] Dec 08, 2019 09:16 AM VA-TOBACCO QUIT 15 YRS OR MORE [place] [facility] [place] [facility] Oct 14, 2018 02:56 PM VA-TOBACCO FORMER USER [place] [facility] [place] [facility] Oct 14, 2018 02:56 PM VA-TOBACCO QUIT 15 YRS OR MORE [place] [facility] [place] [facility] Dec 12, 2017 09:20 AM QUIT TOBACCO USE > 7 YEARS AGO quit > 30 yrs ( 2-3 pks a day) [place] [facility] [place] [facility] Advance Directives: All historical and current Section Date Range: From patient's date of to the date document was created. This section includes ALL of a patient's completed or amended [place] Advance and Rescinded Directives. The entries below indicate that a directive exists for the patient, but an actual copy is not included with this document. The data comes from all [place] facilities. Date Advance Directives Provider Source Feb 09, 2019 ADVANCE DIRECTIVE VAN MORENO [facility] Feb 08, 2019 ADVANCE DIRECTIVE SAMM BRINK [facility] Radiology Reports: +/- 30 days [...] the Encounter. The data comes from all [place] treatment facilities. Date/Time Radiology Report Provider Source Jan 10, 2024 07:[address] PULMONARY NODULES W/O CONTRAST: HIGINIO CAM JR [id number] -1950 M Exm Date: JAN 10, 2024@07:59 Req Phys: NADIA DHALIWAL Pat Loc: CWM/NO/PACT/TELE/JEWEL FLAT SURFACER (Req'g Loc Img Loc: [facility]/CT Service: Unknown (Case [id number] COMPLETE) CT THORAX W/O CONT (CT Detailed) CPT:49430 Reason for Study: annual f/u -look for cancer Clinical History: Report Status: Verified Date Reported: JAN 10, 2024 Date Verified: JAN 10, 2024 Alterations Manager E-Sig:/ES/RAKAN TERAN JR Report: Study: Noncontrast [...] Primary Interpreting Staff: RAKAN TERAN JR, Radiologist (Alterations Manager) /RAKAN AC JR [facility] Encounter Notes: All associated encounter notes This section contains the clinical notes associated to the Encounter. Date/Time Encounter Note(s) Provider Source Jan 09, 2024 10:06 AM DENTISTRY TELEPHON E ENCOUNTER NOTE: LOCAL TITLE: TELEPHONE NOTE/DENTAL STANDARD TITLE: DENTISTRY TELEPHONE ENCOUNTER NOTE DATE OF NOTE: JAN 09, 2024@10:06 ENTRY DATE: JAN 09, 2024@10:06:07 AUTHOR: JOMAR DURHAM EXP COSIGNER: URGENCY: STATUS: COMPLETED Spoke with pt to confirm dental appointment on 01/10/2024 at 7:15 am. /gio/ JOMAR DURHAM ADVANCED HARDENER HELPER Signed: 01/09/2024 10:16 JOMAR DURHAM [facility]
--- OUTSIDE RECORDS SUMMARY | 2024-11-02 06:39 | XMS_ITS | Encounter Summary ---
Author Name [facility] [place] [facility] [place] Organization [facility] [place] [facility] [place] Address [address] [place] [address] Care Team Providers Care Script Artist Name Role Phone YANETH JOE Primary Care [...] Policy 's Name Patient's Relationship to Policy [facility] (WNR) MEDICARE ADVANTAGE [facility] (R) Oct 28, 2019 [id number] IVANA CAM JONAS PATIENT Selected Encounter This section includes the information on record at [place] for the Encounter. Date/Time Encounter Type Encounter Description Reason Provider Source Feb 10, 2024 02:00 PM [facility] ICD-10-CM F43.10 Post-traumatic stress disorder, unspecified MARK,ZEUS IE IHE Encounter Template Text not used by [place] Assessments - Encounter Diagnoses This section includes the primary and secondary diagnoses documented for the Encounter. Date/Time Primary/Secondary Diagnosis Diagnosis Name Provider Source Feb 10, 2024 03:44 PM PRIMARY Post-traumatic stress disorder, unspecified MARK[facility]IN [facility] Plan of Treatment: Future Appointments (+ 6 months) and Future Tests (+/- 45 days) The Plan of Treatment section includes future care activities for the patient from all [facility]. This section includes future appointments and future orders which are active, pending or scheduled. Future Appointments This section includes appointments that were scheduled to occur 6 months from the date of the Encounter, up to a maximum of 20 appointments. The data comes from all [place] treatment facilities. Appointment Date/Time Appointment Type Appointme nt Facility Name Feb 17, 2024 02:00 PM [facility] [place] [facility] Feb 24, 2024 02:00 PM [facility]UL[facility] [place] [facility] March 09, 2024 09:00 AM AM[facility]ULATORY [facility] MEDICINE [facility] [place] [facility] March 09, 2024 02:00 PM AMBULAT[facility] [place] [facility] March 16, 2024 02:00 PM [facility]BUL[facility]RY [facility] [place] [facility] March 26, 2024 09:00 AM AMBULATORY [facility]RY [facility] [place] [facility] Mar 30, 2024 02:00 PM AMBULATORY [facility]RY [facility] [place] [facility] Apr 06, 2024 02:00 PM AMBULATORY [facility]RY [facility] [place] [facility] May 04, 2024 02:00 PM AMBULAT[facility]RY [facility] [place] [facility] May 11, 2024 02:00 PM AMBULATORY [facility]IATRY [facility] [place] [facility] May 18, 2024 02:00 PM AMBULATORY [facility] PS[facility]IATRY [facility] [place] [facility] Jun 01, 2024 02:00 PM AMBULATORY [facility]RY [facility] [place] [facility] Jun 08, 2024 02:00 PM AMBULAT[facility]RY [facility] [place] [facility] Jun 15, 2024 02:00 PM AMBULATORY [facility]IATRY [facility] [place] [facility] Jun 22, 2024 02:00 PM AMBULATORY [facility]IATRY [facility] [place] [facility] Jul 13, 2024 02:00 PM AMBULATORY [facility] PS[facility]IATRY [facility] [place] [facility] Jul 13, 2024 02:30 PM AMBULATORY - REHAB MEDICIN E [facility] [place] [facility] Jul 16, 2024 07:15 AM AMBULATORY - NONE [facility] Jul 20, 2024 02:00 PM AMBULATORY - PSYCHIATRY [facility] Jul 27, 2024 02:00 PM AMBULATORY - PSYCHIATRY [facility] Lab Results: +/- 30 days of the encounter This section includes the Chemistry and Hematology Lab Results on record with [place] for the patient. Radiology Reports and Pathology Reports are provided separately, in subsequent sections. Lab Results This section contains the Chemistry/Hematology Results that were resulted 30 days before or 30 daysafter the date of the Encounter. Date/Time Source Result Type Result - Unit Interpretation Reference Range Comment March 03, 2024 07:46 AM [facility] LIPID PANEL, NON FASTING Specimen Type: SERUM No comment entered. Ordering Provider: YANETH JOE Report Released Date/Time: February 28, 2024 10:29 AM Reporting Lab: [facility] [address] [facility] [address] Performing Lab: [facility] [address] [facility] [address] CHOLESTEROL 190 mg/dL TRIGLYCERIDE 68 mg/dL 0-150 LDL calculated 102 mg/dL 0-129 CHOL/HDL 2.6 HDL CHOLESTEROL 74 mg/dL H 40-60 March 03, 2024 07:46 AM [facility] BASIC METABOLIC PANEL (non-fasting) Specimen Type: SERUM No comment entered. Ordering Provider: YANETH JOE Report Released Date/Time: February 28, 2024 10:29 AM Reporting Lab: [facility] [address] [facility] [address] Performing Lab: [address] [address] UREA NITROGEN 20 mg/dL 7-25 GLUCOSE 105 mg/dL H 65-100 SODIUM 143 mmol/L 135-145 POTASSIUM 4.6 mmol/L 3.5-5.0 CHLORIDE 107 mmol/L 100-110 CO2 26 meq/L 20-30 CREATININE, Serum 1.16 mg/dL 0.50-1.40 eGFR(CKD-EPI 2020) 65 mL/min >60 Social History: Smoking Status (Most current) and Tobacco Use (All prior to encounter date) This section includes the most current, and the historical, smoking and tobacco- related health factors from the [place] facility where the Encounter took place. Current Smoking Status This section includes the most current smoking, or tobacco-related health factor, from the [place] facility where the Encounter took place. Date/Time Current Smoking Status Comment Facil it March 18, 2023 02:30 PM VA-TOBACCO QUIT 15 YRS OR MORE [facility] [place] [facility] Tobacco Use History This section includes a history of the smoking, or tobacco-related health factors, that were collected on or before the date of the Encounter. The data comes from the [place] facility where the Encounter took place. Date/Time Smoking Status/Tobac co Use Comment Facility March 18, 2023 02:30 PM VA-TOBACCO QUIT 15 YRS OR MORE [facility] [place] [facility] Jan 11, 2022 08:30 AM VA-TOBACCO FORMER USER [facility] [place] [facility] Jan 11, 2022 08:30 AM VA-TOBACCO QUIT 15 YRS OR MORE [facility] [place] [facility] Dec 26, 2020 09:00 AM VA-TOBACCO FORMER USER [facility] [place] [facility] Dec 26, 2020 09:00 AM VA-TOBACCO QUIT 15 YRS OR MORE [facility] [place] [facility] Dec 08, 2019 09:16 AM VA-TOBACCO FORMER USER [facility] [place] [facility] Dec 08, 2019 09:16 AM VA-TOBACCO QUIT 15 YRS OR MORE [facility] [place] [facility] Oct 14, 2018 02:56 PM VA-TOBACCO FORMER USER [facility] [place] [facility] Oct 14, 2018 02:56 PM VA-TOBACCO QUIT 15 YRS OR MORE [facility] [place] [facility] Dec 12, 2017 09:20 AM QUIT TOBACCO USE > 7 YEARS AGO quit > 30 yrs ( 2-3 pks a day) [facility] [place] [facility] Advance Directives: All historical and current Section Date Range: From patient's date of to the date document was created. This section includes ALL of a patient's completed or amended VA Advance and Rescinded Directives. The entries below indicate that a directive exists for the patient, but an actual copy is not included with this document. The data comes from all [place] facilities. Date Advance Directives Provider Source Feb 09, 2019 ADVANCE DIRECTIVE VAN MORENO [facility] Feb 08, 2019 ADVANCE DIRECTIVE SAMM BRINK [facility] Encounter Notes: All associated encounter notes This section contains the clinical notes associated to the Encounter. Date/Time Encounter Note(s) Provider Source Feb 10, 2024 02:00 PM SOCIAL WORK GROUP COUNSELING NOTE: LOCAL TITLE: SOCIAL WORK GROUP NOTE STANDARD TITLE: SOCIAL WORK GROUP COUNSELING NOTE DATE OF NOTE: FEB 10, 2024@14:00 ENTRY DATE: FEB 10, 2024@15:38:12 AUTHOR: MANDY FLORES COSIGNER: URGENCY: STATUS: COMPLETED This was a 60-minute supportive psychotherapy group for [place] Veterans with PTSD. 10 members were present today. Topics discussed today included: - aging and dealing with physical limitations. Members continued to discuss ways they have had to give up doing some of the things they used to do. - health issues of various members and their loved ones. - activities of daily living, including contact with family, volunteer work, and upcoming trips. 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 Members provided one another support and feedback. Next group will be 02/17/2024 [place] reported he continues to drink. He is not concerned about it, and with prompting, shared that as long as it's not every day, and it's not more than two drinks, he thinks it's not a problem. Members provided feedback around this. /gio/ MANDY FLORES [facility] CLINICAL AGRICULTURAL EDUCATION INSTRUCTOR Signed: 02/10/2024 15:45 MANDY FLORES [facility]
--- OUTSIDE RECORDS SUMMARY | 2024-11-02 06:39 | XMS_ITS | Encounter Summary ---
Author Name [facility] [place] Organization [facility] [place] [facility] [place] Address [address] [place] [id number] Care Team Providers Care Division Head Name Role Phone YANETH JOE Primary Care [...] Policy 's Name Patient's Relationship to Policy [facility] (WNR) MEDICARE ADVANTAGE [facility] (WNR) Oct 28, 2019 [id number] IVANA CAM JONAS PATIENT Selected Encounter This section includes the information on record at [place] for the Encounter. Date/Time Encounter Type Encounter Description Reason Provider Source Feb 03, 2024 02:00 PM [facility] ICD-10-CM F43.10 Post-traumatic stress disorder, unspecified MARK,ZEUS IE IHE Encounter Template Text not used by [place] Assessments - Encounter Diagnoses This section includes the primary and secondary diagnoses documented for the Encounter. Date/Time Primary/Secondary Diagnosis Diagnosis Name Provider Source Feb 04, 2024 08:06 AM PRIMARY Post-traumatic stress disorder, unspecified MARK[facility] Plan of Treatment: Future Appointments (+ 6 months) and Future Tests (+/- 45 days) The Plan of Treatment section includes future care activities for the patient from all [facility]. This section includes future appointments and future orders which are active, pending or scheduled. Future Appointments This section includes appointments that were scheduled to occur 6 months from the date of the Encounter, up to a maximum of 20 appointments. The data comes from all [place] treatment facilities. Appointment Date/Time Appointment Type Appointme nt Facility Name Feb 10, 2024 02:00 PM AMBULATORY [facility] [place] [facility] Feb 17, 2024 02:00 PM AMBULATORY [facility] PS[facility]CHIATRY [facility] [place] [facility] Feb 24, 2024 02:00 PM AMBULATORY [facility] PS[facility]CHIATRY [facility] [place] [facility] March 09, 2024 09:00 AM AMBULATORY - MEDICINE [facility] [place] [facility] March 09, 2024 02:00 PM AMBULATORY - PSYCHIATRY [facility] [place] [facility] March 16, 2024 02:00 PM AMBULATORY - PSYCHIATRY [facility] [place] [facility] March 26, 2024 09:00 AM AMBULATORY - PSYCHIATRY [facility] [place] [facility] Mar 30, 2024 02:00 PM AMBULATORY - PSYCHIATRY [facility] [place] [facility] Apr 06, 2024 02:00 PM AMBULATORY - PSYCHIATRY [facility] [place] [facility] May 04, 2024 02:00 PM AMBULATORY - PSYCHIATRY [facility] [place] [facility] May 11, 2024 02:00 PM AMBULATORY - PSYCHIATRY [facility] [place] [facility] May 18, 2024 02:00 PM AMBULATORY - PSYCHIATRY [facility] [place] [facility] Jun 01, 2024 02:00 PM AMBULATORY - PS[facility]CHIATRY [facility] [place] [facility] Jun 08, 2024 02:00 PM AMBULATORY [facility] PS[facility]CHIATRY [facility] [place] [facility] Jun 15, 2024 02:00 PM AMBULATORY [facility] PS[facility]CHIATRY [facility] [place] [facility] Jun 22, 2024 02:00 PM AMBULATORY - PSYCHIATRY [facility] [place] [facility] Jul 13, 2024 02:00 PM AMBULATORY [facility] PSYCHIATRY [facility] [place] [facility] Jul 13, 2024 02:30 PM AMBULATORY - REHAB MEDICIN E [facility] Jul 16, 2024 07:15 AM [facility] Jul 20, 2024 02:00 PM AMBULATORY - PSYCHIATRY [facility] Lab Results: +/- 30 days of the encounter This section includes the Chemistry and Hematology Lab Results on record with [place] for the patient. Radiology Reports and Pathology Reports are provided separately, in subsequent sections. Lab Results This section contains the Chemistry/Hematology Results that were resulted 30 days before or 30 daysafter the date of the Encounter. Date/Time Source Result Type Result - Unit Interpretation Reference Range Comment March 03, 2024 07:46 AM [facility] LIPID PANEL, NON FASTING Specimen Type: SERUM No comment entered. Ordering Provider: YANETH JOE Report Released Date/Time: February 28, 2024 10:29 AM Reporting Lab: [facility] [address] [facility] [address] Performing Lab: [facility] [address] [facility] [address] CHOLESTEROL 190 mg/dL TRIGLYCERIDE 68 mg/dL 0-150 LDL calculated 102 mg/dL 0-129 CHOL/HDL 2.6 HDL CHOLESTEROL 74 mg/dL H 40-60 March 03, 2024 07:46 AM [facility] BASIC METABOLIC PANEL (non-fasting) Specimen Type: SERUM No comment entered. Ordering Provider: YANETH JOE Report Released Date/Time: February 28, 2024 10:29 AM Reporting Lab: [facility] [address] [facility] [address] Performing Lab: [address] [address] UREA NITROGEN 20 mg/dL 7-25 GLUCOSE 105 [...] and tobacco- related health factors from the [place] facility where the Encounter took place. Current Smoking Status This section includes the most current smoking, or tobacco-related health factor, from the [place] facility where the Encounter took place. Date/Time Current Smoking Status Comment Facil it March 18, 2023 02:30 PM VA-TOBACCO QUIT 15 YRS OR MORE [place] [facility] [place] [facility] Tobacco Use History This section includes a history of the smoking, or tobacco-related health factors, that were collected on or before the date of the Encounter. The data comes from the [place] facility where the Encounter took place. Date/Time Smoking Status/Tobac co Use Comment Facility March 18, 2023 02:30 PM VA-TOBACCO QUIT 15 YRS OR MORE [place] [facility] [place] [facility] Jan 11, 2022 08:30 AM VA-TOBACCO FORMER USER [facility] [place] [facility] Jan 11, 2022 08:30 AM VA-TOBACCO QUIT 15 YRS OR MORE [facility] [place] [facility] Dec 26, 2020 09:00 AM VA-TOBACCO FORMER USER [facility] [place] [facility] Dec 26, 2020 09:00 AM VA-TOBACCO QUIT 15 YRS OR MORE [facility] [place] [facility] Dec 08, 2019 09:16 AM VA-TOBACCO FORMER USER [facility] [place] [facility] Dec 08, 2019 09:16 AM VA-TOBACCO QUIT 15 YRS OR MORE [facility] [place] [facility] Oct 14, 2018 02:56 PM VA-TOBACCO FORMER USER [facility] [place] [facility] Oct 14, 2018 02:56 PM VA-TOBACCO QUIT 15 YRS OR MORE [facility] [place] [facility] Dec 12, 2017 09:20 AM QUIT TOBACCO USE > 7 YEARS AGO quit > 30 yrs ( 2-3 pks a day) [place] [facility] [place] [facility] Advance Directives: All historical and current Section Date Range: From patient's date of to the date document was created. This section includes ALL of a patient's completed or amended VA Advance and Rescinded Directives. The entries below indicate that a directive exists for the patient, but an actual copy is not included with this document. The data comes from all [place] facilities. Date Advance Directives Provider Source Feb 09, 2019 ADVANCE DIRECTIVE VAN MORENO [facility] Feb 08, 2019 ADVANCE DIRECTIVE SAMM BRINK [facility] Radiology Reports: +/- 30 days of [...] the Encounter. The data comes from all [place] treatment facilities. Date/Time Radiology Report Provider Source Jan 10, 2024 07:[address] PULMONARY NODULES W/O CONTRAST: HIGINIO CAM JR [id number] -[id number] M Exm Date: JAN 10, 2024@07:59 Req Phys: NADIA DHALIWAL Loc: [facility]/NO/PACT/TELE/THERAPY TECH (Req'g Loc Img Loc: [facility]/CT Service: Unknown (Case [id number] COMPLETE) CT THORAX W/O CONT (CT Detailed) CPT:63193 Reason for Study: annual f/u -look for cancer Clinical History: Report Status: Verified Date Reported: JAN 10, 2024 Date Verified: JAN 10, 2024 Strip Roller E-Sig:/ES/RAKAN TERAN JR Report: Study: Noncontrast CT [...] Primary Interpreting Staff: RAKAN TERAN JR, Radiologist (Strip Roller) /RAKAN CA JR [facility] Encounter Notes: All associated encounter notes This section contains the clinical notes associated to the Encounter. Date/Time Encounter Note(s) Provider Source Feb 03, 2024 02:00 PM SOCIAL WORK GROUP COUNSELING NOTE: LOCAL TITLE: SOCIAL WORK GROUP NOTE STANDARD TITLE: SOCIAL WORK GROUP COUNSELING NOTE DATE OF NOTE: FEB 03, 2024@14:00 ENTRY DATE: FEB 04, 2024@07:58:55 AUTHOR: MANDY FLORES EXP COSIGNER: URGENCY: STATUS: COMPLETED This was a 60-minute supportive psychotherapy group for [place] Veterans with PTSD. 10 members were present today. Topics discussed today included: - aging and dealing with physical limitations. Members continued to discuss ways they have had to give up doing some of the things they used to do. This was further discussed due to one member's recent fall and neck injury. - further discussion from last week on returning home from [place] and how they were received and their experiences trying to get help. Some also mentioned how getting help in recent years has been a more positive experience. Others discussed how challenging it can be for them to manage the difficult emotions that arise when they are reminded of what it was like returning home. - activities of daily living, such as [employer]'s events, or fishing. Members provided one another support and feedback. Next group will be 02/10/2024 [place] reported he was doing well with no new problems or concerns. 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 /gio/ ANSHU CHAEVZ CLINICAL LABOR AND DELIVERY NURSE Signed: 02/04/2024 08:07 MANDY FLORES [place] [facility]
--- OUTSIDE RECORDS SUMMARY | 2024-11-02 06:39 | XMS_ITS | Encounter Summary ---
Author Name [facility] [place] Organization [place] Address [address] [place] [id number] Care Team Providers Care Waredresser Name Role Phone YANETH JOE Primary Care [...] Policy 's Name Patient's Relationship to Policy [facility] (WNR) MEDICARE ADVANTAGE [facility] (WNR) Oct 28, 2019 [id number] IVANA CAM JONAS PATIENT Selected Encounter This section includes the information on record at [place] for the Encounter. Date/Time Encounter Type Encounter Description Reason Provider Source Jan 20, 2024 02:00 PM [facility] ICD-10-CM F43.10 Post-traumatic stress disorder, unspecified MARK,ZEUS IE IHE Encounter Template Text not used by [place] Assessments - Encounter Diagnoses This section includes the primary and secondary diagnoses documented for the Encounter. Date/Time Primary/Secondary Diagnosis Diagnosis Name Provider Source Jan 20, 2024 04:22 PM PRIMARY Post-traumatic stress disorder, unspecified MARK[facility] Plan of Treatment: Future Appointments (+ 6 months) and Future Tests (+/- 45 days) The Plan of Treatment section includes future care activities for the patient [facility] This section includes future appointments and future orders which are active, pending or scheduled. Future Appointments This section includes appointments that were scheduled to occur 6 months from the date of the Encounter, up to a maximum of 20 appointments. The data comes from all [place] treatment facilities. Appointment Date/Time Appointment Type Appointme nt Facility Name Jan 27, 2024 02:00 PM [facility]UL[facility] [place] [facility] Feb 03, 2024 02:00 PM AMBULATORY [facility] [place] [facility] Feb 10, 2024 02:00 PM AMBULATORY [facility]RY [facility] [place] [facility] Feb 17, 2024 02:00 PM AMBULATORY [facility] PS[facility]RY [facility] [place] [facility] Feb 24, 2024 02:00 PM AMBULATORY [facility] [place] [facility] March 09, 2024 09:00 AM AMBULATORY [facility] MEDICINE [facility] [place] [facility] March 09, 2024 02:00 PM AMBULATORY [facility] PS[facility]IATRY [facility] [place] [facility] March 16, 2024 02:00 PM AMBULATORY - PS[facility]CHIATRY [facility] [place] [facility] March 26, 2024 09:00 AM AMBULATORY [facility] PS[facility] [place] [facility] Mar 30, 2024 02:00 PM AMBULATORY [facility] PS[facility]IATRY [facility] [place] [facility] Apr 06, 2024 02:00 PM AMBULATORY [facility] PS[facility]IATRY [facility] [place] [facility] May 04, 2024 02:00 PM AMBULATORY [facility] PS[facility]IATRY [facility] [place] [facility] May 11, 2024 02:00 PM AMBULATORY - PS[facility]CHIATRY [facility] [place] [facility] May 18, 2024 02:00 PM AMBULATORY [facility] PS[facility]IATRY [facility] [place] [facility] Jun 01, 2024 02:00 PM AMBULATORY - PS[facility]CHIATRY [facility] [place] [facility] Jun 08, 2024 02:00 PM AMBULATORY [facility] PS[facility]CHIATRY [facility] [place] [facility] Jun 15, 2024 02:00 PM AMBULATORY [facility] PS[facility]IATRY [facility] [place] [facility] Jun 22, 2024 02:00 PM AMBULATORY - PSYCHIATRY [facility] [place] [facility] Jul 13, 2024 02:00 PM AMBULATORY - PSYCHIATRY [facility] [place] [facility] Jul 13, 2024 02:30 PM AMBULATORY - REHAB MEDICIN E [place] [facility] [place] [facility] Social History: Smoking Status (Most current) and Tobacco Use (All prior to encounter date) This section includes the most current, and the historical, smoking and tobacco- related health factors from the [place] facility where the Encounter took place. Current Smoking Status This section includes the most current smoking, or tobacco-related health factor, from the [place] facility where the Encounter took place. Date/Time Current Smoking Status Comment Facil it March 18, 2023 02:30 PM VA-TOBACCO FORMER USER [place] [facility] [place] [facility] Tobacco Use History This section includes a history of the smoking, or tobacco-related health factors, that were collected on or before the date of the Encounter. The data comes from the [place] facility where the Encounter took place. Date/Time Smoking Status/Tobac co Use Comment Facility March 18, 2023 02:30 PM VA-TOBACCO QUIT 15 YRS OR MORE [facility] [place] [facility] Jan 11, 2022 08:30 AM VA-TOBACCO FORMER USER [facility] [place] [facility] Jan 11, 2022 08:30 AM VA-TOBACCO QUIT 15 YRS OR MORE [facility] [place] [facility] Dec 26, 2020 09:00 AM VA-TOBACCO FORMER USER [facility] [place] [facility] Dec 26, 2020 09:00 AM VA-TOBACCO QUIT 15 YRS OR MORE [facility] [place] [facility] Dec 08, 2019 09:16 AM VA-TOBACCO FORMER USER [facility] [place] [facility] Dec 08, 2019 09:16 AM VA-TOBACCO QUIT 15 YRS OR MORE [facility] [place] [facility] Oct 14, 2018 02:56 PM VA-TOBACCO FORMER USER [facility] [place] [facility] Oct 14, 2018 02:56 PM VA-TOBACCO QUIT 15 YRS OR MORE [facility] [place] [facility] Dec 12, 2017 09:20 AM QUIT TOBACCO USE > 7 YEARS AGO quit > 30 yrs ( 2-3 pks a day) [facility] Advance Directives: All historical and current Section Date Range: From patient's date of to the date document was created. This section includes ALL of a patient's completed or amended [place] Advance and Rescinded Directives. The entries below indicate that a directive exists for the patient, but an actual copy is not included with this document. The data comes from all [place] facilities. Date Advance Directives Provider Source Feb 09, 2019 ADVANCE DIRECTIVE VAN MORENO [facility] Feb 08, 2019 ADVANCE DIRECTIVE SAMM BRINK V [facility] Radiology Reports: +/- 30 days of the [...] the Encounter. The data comes from all [place] treatment facilities. 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 (Req'g Loc Img Loc: [place]/CT Service: Unknown (Case [id number] COMPLETE) CT THORAX W/O CONT (CT Detailed) CPT:70785 Reason for Study: annual f/u -look for cancer Clinical History: Report Status: Verified Date Reported: JAN 10, 2024 Date Verified: JAN 10, 2024 Security Intelligence Analyst E-Sig:/ES/RAKAN TERAN JR Report: Study: Noncontrast [...] Primary Interpreting Staff: RAKAN TERAN JR, Radiologist (Security Intelligence Analyst) /RAKAN CA JR [facility] Encounter Notes: All associated encounter notes This section contains the clinical notes associated to the Encounter. Date/Time Encounter Note(s) Provider Source Jan 20, 2024 02:00 PM SOCIAL WORK GROUP COUNSELING NOTE: LOCAL TITLE: SOCIAL WORK GROUP NOTE STANDARD TITLE: SOCIAL WORK GROUP COUNSELING NOTE DATE OF NOTE: JAN 20, 2024@14:00 ENTRY DATE: JAN 20, 2024@16:14:08 AUTHOR: MANDY FLORES COSIGNER: URGENCY: STATUS: COMPLETED This was a 60-minute supportive psychotherapy group for [place] Veterans with PTSD. 11 members were present today. Topics discussed today included: - health issues and updates. - psychosocial stressors including legal issues, family, and housing. - group process and timing including logistical issues regarding starting on time. - discussing of how to start to get rid of acccumulated things in the house, particularly if one has difficulty doing so and has been collecting things for decades. It was also discussed in terms of getting rid of things that belonged to a spouse. Members provided one another support and feedback. Next group will be 01/27/2024 reported he was well with no new issues or concerns. /gio/ MANDY FLORES ZIPPER LINING FOLDER CLINICAL CRAPS MANAGER Signed: 01/20/2024 16:23 MANDY FLORES [place] [facility]
--- OUTSIDE RECORDS SUMMARY | 2024-11-02 06:39 | XMS_ITS | Encounter Summary ---
Author Name [facility] [place] Organization [place] Address [address] [place] [id number] Care Team Providers Care Rn Hospital Name Role Phone YANETH JOE Primary Care [...] Policy 's Name Patient's Relationship to Policy [facility] (WNR) MEDICARE ADVANTAGE [facility] (R) Oct 28, 2019 [id number] IVANA CAM JONAS PATIENT Selected Encounter This section includes the information on record at [place] for the Encounter. Date/Time Encounter Type Encounter Description Reason Provider Source Dec 23, 2023 02:00 PM GROUP PS[facility]APY [facility] ICD-10-CM F43.10 Post-traumatic stress disorder, unspecified MARK,ZEUS IE IHE Encounter Template Text not used by CT Assessments - Encounter Diagnoses This section includes the primary and secondary diagnoses documented for the Encounter. Date/Time Primary/Secondary Diagnosis Diagnosis Name Provider Source Dec 23, 2023 04:14 PM PRIMARY Post-traumatic stress disorder, unspecified [facility] Plan of Treatment: Future Appointments (+ [...] Appointment Type Appointme nt Facility Name Dec 30, 2023 02:00 PM AMBULATORY [facility] [place] [facility] Jan 03, 2024 10:00 AM AMBULATORY - REHAB MEDICIN E [facility] [place] [facility] Jan 06, 2024 02:00 PM AMBULATORY - PS[facility]CHIATRY [facility] [place] [facility] Jan 10, 2024 07:15 AM AMBULATORY - NONE [facility] [place] [facility] Jan 10, 2024 07:30 AM AMBULATORY - NONE [facility] [place] [facility] Jan 10, 2024 08:30 AM AMBULATORY - NONE [facility] [place] [facility] Jan 13, 2024 02:00 PM AMBULATORY - PSYCHIATRY [facility] [place] [facility] Jan 20, 2024 02:00 PM AMBULATORY - PSYCHIATRY [facility] [place] [facility] Jan 27, 2024 02:00 PM AMBULATORY - PSYCHIATRY [facility] [place] [facility] Feb 03, 2024 02:00 PM AMBULATORY - PSYCHIATRY [facility] [place] [facility] Feb 10, 2024 02:00 PM AMBULATORY - PSYCHIATRY [facility] [place] [facility] Feb 17, 2024 02:00 PM AMBULATORY - PSYCHIATRY [facility] [place] [facility] Feb 24, 2024 02:00 PM AMBULATORY - PSYCHIATRY [facility] [place] [facility] March 09, 2024 09:00 AM AMBULATORY - MEDICINE [facility] [place] [facility] March 09, 2024 02:00 PM AMBULATORY - PSYCHIATRY [facility] [place] [facility] March 16, 2024 02:00 PM AMBULATORY - PSYCHIATRY [facility] [place] [facility] March 26, 2024 09:00 AM AMBULATORY - PSYCHIATRY [facility] [place] [facility] Mar 30, 2024 02:00 PM AMBULATORY - PSYCHIATRY [facility] [place] [facility] Apr 06, 2024 02:00 PM AMBULATORY - PSYCHIATRY [facility] [place] [facility] May 04, 2024 02:00 PM AMBULATORY - PSYCHIATRY [facility] [place] [facility] Social History: Smoking Status (Most [...] 18, 2023 02:30 PM VA-TOBACCO FORMER USER [facility] [place] [facility] Tobacco Use History This section includes a history of the smoking, or tobacco-related health factors, that were collected on or before the date of the Encounter. The data comes from the [place] facility where the Encounter took place. Date/Time Smoking Status/Tobac co Use Comment Facility March 18, 2023 02:30 PM VA-TOBACCO QUIT [address] [facility] [place] [facility] Jan 11, 2022 08:30 AM VA-TOBACCO FORMER USER [facility] [place] [facility] Jan 11, 2022 08:30 AM VA-TOBACCO QUIT 15 YRS OR MORE [facility] [place] [facility] Dec 26, 2020 09:00 AM VA-TOBACCO FORMER USER [facility] [place] [facility] Dec 26, 2020 09:00 AM VA-TOBACCO QUIT 15 YRS OR MORE [facility] [place] [facility] Dec 08, 2019 09:16 AM VA-TOBACCO FORMER USER [facility] [place] [facility] Dec 08, 2019 09:16 AM VA-TOBACCO QUIT 15 YRS OR MORE [facility] [place] [facility] Oct 14, 2018 02:56 PM VA-TOBACCO FORMER USER [facility] [place] [facility] Oct 14, 2018 02:56 PM VA-TOBACCO QUIT 15 YRS OR MORE [facility] [place] [facility] Dec 12, 2017 09:20 AM QUIT TOBACCO USE > 7 YEARS AGO quit > 30 yrs ( 2-3 pks a day) [facility] Advance Directives: All historical and current [...] Feb 09, 2019 ADVANCE DIRECTIVE VAN MORENO [facility] Feb 08, 2019 ADVANCE DIRECTIVE SAMM BRINK V [facility] Radiology Reports: +/- 30 days of [...] the Encounter. The data comes from all [place] treatment facilities. 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 (Req'g Loc Img Loc: [facility]/CT Service: Unknown (Case [id number] COMPLETE) CT THORAX W/O CONT (CT Detailed) CPT:22194 Reason for Study: annual f/u -look for cancer Clinical History: Report Status: Verified Date Reported: JAN 10, 2024 Date Verified: JAN 10, 2024 Collection Team Lead E-Sig:/ES/RAKAN TERAN JR Report: Study: Noncontrast CT [...] Primary Interpreting Staff: RAKAN TERAN JR, Radiologist (Collection Team Lead) /[facility] [place] [facility] Encounter Notes: All associated encounter notes This section contains the clinical notes associated to the Encounter. Date/Time Encounter Note(s) Provider Source Dec 23, 2023 02:00 PM SOCIAL WORK GROUP COUNSELING NOTE: LOCAL TITLE: SOCIAL WORK GROUP NOTE STANDARD TITLE: SOCIAL WORK GROUP COUNSELING NOTE DATE OF NOTE: DEC 23, 2023@14:00 ENTRY DATE: DEC 23, 2023@15:11:15 AUTHOR: MANDY FLORES EXP COSIGNER: URGENCY: STATUS: COMPLETED This was a 60-minute supportive psychotherapy group for [place] Veterans with PTSD. 7 members were present today. Topics discussed today included: - health issues and updates, including as well for loved ones. Recent surgeries of some members were discussed. - activities of daily living, including volunteer work and positive ways to spend time. - recovery issues, with a particular focus on alcohol and cigarettes. Members shared details of their journey towards recovery, with some stopping altogether many years and others drinking ocasionally.The topic of aging and alcohol use was discussed. Members provided one another support and feedback. Next group will be 12/30/2023 shared that he had a marguerita at a restaurant last week. He said he knows he is dancing with the devil . Members provided him with feedback. He said he will know if he has a problem if he drinks every day, which he doesn't feel he will given his body didn't feel good the next day. /gio/ MANDY FLORES [facility] CLINICAL HEEL SPRAYER FIRST Signed: 12/23/2023 16:15 MANDY FLORES [facility]
--- OUTSIDE RECORDS SUMMARY | 2024-11-02 06:39 | XMS_ITS ---
Author Name [facility] [place] Address [address] [place] [id number] Care Team Providers Care Group Work Program Aide Name Role Phone YANETH JOE Primary Care [...] Policy 's Name Patient's Relationship to Policy [facility] (WNR) MEDICARE ADVANTAGE [facility] (WNR) Oct 28, 2019 [id number] TUTU,JE JONAS PATIENT Selected Encounter This section includes the information on record at [place] for the Encounter. Date/Time Encounter Type Encounter Description Reason Provider Source Dec 30, 2023 02:00 PM GROUP PS[facility]OTHERAP[facility] ICD-10-CM F43.10 Post-traumatic stress disorder, unspecified MARK,ZEUS IE IHE Encounter Template Text not used by [place] Assessments - Encounter Diagnoses This section includes the primary and secondary diagnoses documented for the Encounter. Date/Time Primary/Secondary Diagnosis Diagnosis Name Provider Source Dec 30, 2023 04:08 PM PRIMARY Post-traumatic stress disorder, unspecified MARK[facility] Plan of Treatment: Future Appointments (+ [...] 20 appointments. The data comes from all [place] treatment facilities. Appointment Date/Time Appointment Type Appointme nt Facility Name Jan 03, 2024 10:00 AM AMBULATORY - [facility]ICIN [facility] [place] [facility] Jan 06, 2024 02:00 PM AMBULATORY - PSYCHIATRY [facility] [place] [facility] Jan 10, 2024 07:15 AM AMBULATORY - NONE [facility] [place] [facility] Jan 10, 2024 07:30 AM AMBULATORY - NONE [facility] [place] [facility] Jan 10, 2024 08:30 AM AMBULATORY - NONE [facility] [place] [facility] Jan 13, 2024 02:00 PM AMBULATORY - PSYCHIATRY [facility] [place] [facility] Jan 20, 2024 02:00 PM AMBULATORY - PSYCHIATRY [facility] [place] [facility] Jan 27, 2024 02:00 PM AMBULATORY - PSYCHIATRY [facility] [place] [facility] Feb 03, 2024 02:00 PM AMBULATORY - PSYCHIATRY [facility] [place] [facility] Feb 10, 2024 02:00 PM AMBULATORY - PSYCHIATRY [facility] [place] [facility] Feb 17, 2024 02:00 PM AMBULATORY - PSYCHIATRY [facility] [place] [facility] Feb 24, 2024 02:00 PM AMBULATORY - PSYCHIATRY [facility] [place] [facility] March 09, 2024 09:00 AM AMBULATORY - MEDICINE [facility] [place] [facility] March 09, 2024 02:00 PM AMBULATORY - PSYCHIATRY [facility] [place] [facility] March 16, 2024 02:00 PM AMBULATORY - PSYCHIATRY [facility] [place] [facility] March 26, 2024 09:00 AM AMBULATORY - PSYCHIATRY [facility] [place] [facility] Mar 30, 2024 02:00 PM AMBULATORY - PSYCHIATRY [facility] [place] [facility] Apr 06, 2024 02:00 PM AMBULATORY - PSYCHIATRY [facility] [place] [facility] May 04, 2024 02:00 PM AMBULATORY - PSYCHIATRY [facility] [place] [facility] May 11, 2024 02:00 PM AMBULATORY - PSYCHIATRY [facility] [place] [facility] Social History: Smoking Status (Most current) and Tobacco Use (All prior to encounter date) This section includes the most current, and the historical, smoking and tobacco- related health factors from the [place] facility where the Encounter took place. Current Smoking Status This section includes the most current smoking, or tobacco-related health factor, from the [place] facility where the Encounter took place. Date/Time Current Smoking Status Comment Facil it March 18, 2023 02:30 PM VA-TOBACCO QUIT 15 YRS OR MORE [facility] [place] [facility] Tobacco Use History This section includes a history of the smoking, or tobacco-related health factors, that were collected on or before the date of the Encounter. The data comes from the [place] facility where the Encounter took place. Date/Time Smoking Status/Tobac co Use Comment Facility March 18, 2023 02:30 PM VA-TOBACCO QUIT 15 YRS OR MORE [facility] [place] [facility] Jan 11, 2022 08:30 AM VA-TOBACCO FORMER USER [facility] [place] [facility] Jan 11, 2022 08:30 AM VA-TOBACCO QUIT 15 YRS OR MORE [facility] [place] [facility] Dec 26, 2020 09:00 AM VA-TOBACCO FORMER USER [facility] [place] [facility] Dec 26, 2020 09:00 AM VA-TOBACCO QUIT 15 YRS OR MORE [facility] [place] [facility] Dec 08, 2019 09:16 AM VA-TOBACCO FORMER USER [facility] [place] [facility] Dec 08, 2019 09:16 AM VA-TOBACCO QUIT 15 YRS OR MORE [facility] [place] [facility] Oct 14, 2018 02:56 PM VA-TOBACCO FORMER USER [facility] [place] [facility] Oct 14, 2018 02:56 PM VA-TOBACCO QUIT 15 YRS OR MORE [facility] [place] [facility] Dec 12, 2017 09:20 AM QUIT TOBACCO USE > 7 YEARS AGO quit > 30 yrs ( 2-3 pks a day) [facility] Advance Directives: All historical and current Section Date Range: From patient's date of to the date document was created. This section includes ALL of a patient's completed or amended [place] Advance and Rescinded Directives. The entries below indicate that a directive exists for the patient, but an actual copy is not included with this document. The data comes from all [place] facilities. Date Advance Directives Provider Source Feb 09, 2019 ADVANCE DIRECTIVE VAN MORENO [facility] Feb 08, 2019 ADVANCE DIRECTIVE SAMM BRINK [facility] Radiology Reports: +/- 30 days of the [...] the Encounter. The data comes from all [place] treatment facilities. 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/DIRECTOR SUPPLIER QUALITY (Req'g Loc Img Loc: [facility]/CT Service: Unknown (Case [id number] COMPLETE) CT THORAX W/O CONT (CT Detailed) CPT:87419 Reason for Study: annual f/u -look for cancer Clinical History: Report Status: Verified Date Reported: JAN 10, 2024 Date Verified: JAN 10, 2024 Graphic Technician E-Sig:/ES/RAKAN TERAN JR Report: Study: Noncontrast CT [...] Primary Interpreting Staff: RAKAN TERAN JR, Radiologist (Graphic Technician) /RAKAN CA JR [facility] [place] [facility] Encounter Notes: All associated encounter notes This section contains the clinical notes associated to the Encounter. Date/Time Encounter Note(s) Provider Source Dec 30, 2023 02:00 PM SOCIAL WORK GROUP COUNSELING NOTE: LOCAL TITLE: SOCIAL WORK GROUP NOTE STANDARD TITLE: SOCIAL WORK GROUP COUNSELING NOTE DATE OF NOTE: DEC 30, 2023@14:00 ENTRY DATE: DEC 30, 2023@15:59:21 AUTHOR: MANDY FLORES EXP COSIGNER: URGENCY: STATUS: COMPLETED This was a 60-minute supportive psychotherapy group for [employer] Veterans with PTSD. 10 members were present today. Topics discussed today included: - recovery issues from alcohol use. Members discussed abstinence versus harm reduction and provided one member with support regarding drinking alcohol again. - health issues and updates, including as well for loved ones. - activities of daily living. In particular the group today discussed meeting as a group for taty outside of the group time (without project facilitator). Logistics were discussed and a tentative date of 02/24 at noon was chosen. Members provided one another support and feedback. Next group will be 01/06/2024 [place] shared, when asked, that he had alcohol one day this weekend. Members inquired about this, some gently challenged it, while also giving him space to talk through his thoughts and feelings about it. /gio/ MANDY FLORES [facility] CLINICAL TURN OUT WORKER Signed: 12/30/2023 16:09 MANDY FLORES [facility]
--- OUTSIDE RECORDS SUMMARY | 2024-11-02 06:39 | XMS_ITS ---
Author Name [facility] [place] Organization [place] Address [address] [place] [address] Care Team Providers Care Silk Opener Name Role Phone YANETH JOE Primary Care Provider Unavailbharat lopez Insurance Providers: All historical and current [...] Name Patient's Relationship to Policy [facility] ([facility]) MEDICARE ADVANTAGE [facility] ([facility]) Oct 28, 2019 [id number] IVANA CAM PATIENT Selected Encounter This section includes the information on record at [place] for the Encounter. Date/Time Encounter Type Encounter Description Reason Provider Source Jan 03, 2024 10:00 AM HEARING AID REPAIR/MODIFYIN G AUDIOLOGY ICD-10-CM Z46.1 Encounter for fitting and adjustment of hearing aid NITA PALMA Encounter Template Text not used by [place] Assessments - Encounter Diagnoses This section includes the primary and secondary diagnoses documented for the Encounter. Date/Time Primary/Secondary Diagnosis Diagnosis Name Provider Source Jan 03, 2024 10:32 AM PRIMARY Encounter for fitting and adjustment of hearing aid NITA PALMA [facility] [place] [facility] Jan 03, 2024 10:32 AM SECONDARY Sensorineural hearing loss, bilateral CAMINITI,NITA E [facility] [place] [facility] Plan of Treatment: Future Appointments [...] 20 appointments. The data comes from all [place] treatment facilities. Appointment Date/Time Appointment Type Appointme nt Facility Name Jan 06, 2024 02:00 PM AMBULATORY - PSYCHIATRY [facility] [place] [facility] Jan 10, 2024 07:15 AM AMBULATORY - NONE [facility] [place] [facility] Jan 10, 2024 07:30 AM AMBULATORY - NONE [facility] [place] [facility] Jan 10, 2024 08:30 AM AMBULATORY - NONE [facility] [place] [facility] Jan 13, 2024 02:00 PM AMBULATORY - PSYCHIATRY [facility] [place] [facility] Jan 20, 2024 02:00 PM AMBULATORY - PSYCHIATRY [facility] [place] [facility] Jan 27, 2024 02:00 PM AMBULATORY - PSYCHIATRY [facility] [place] [facility] Feb 03, 2024 02:00 PM AMBULATORY - PSYCHIATRY [facility] [place] [facility] Feb 10, 2024 02:00 PM AMBULATORY - PSYCHIATRY [facility] [place] [facility] Feb 17, 2024 02:00 PM AMBULATORY - PSYCHIATRY [facility] [place] [facility] Feb 24, 2024 02:00 PM AMBULATORY - PSYCHIATRY [facility] [place] [facility] March 09, 2024 09:00 AM AMBULATORY - MEDICINE [facility] [place] [facility] March 09, 2024 02:00 PM AMBULATORY - PSYCHIATRY [facility] [place] [facility] March 16, 2024 02:00 PM AMBULATORY - PSYCHIATRY [facility] [place] [facility] March 26, 2024 09:00 AM AMBULATORY - PSYCHIATRY [facility] [place] [facility] Mar 30, 2024 02:00 PM AMBULATORY - PSYCHIATRY [facility] [place] [facility] Apr 06, 2024 02:00 PM AMBULATORY - PSYCHIATRY [facility] [place] [facility] May 04, 2024 02:00 PM AMBULATORY - PSYCHIATRY [facility] [place] [facility] May 11, 2024 02:00 PM AMBULATORY - PSYCHIATRY [facility] [place] [facility] May 18, 2024 02:00 PM AMBULATORY - PSYCHIATRY [facility] [place] [facility] Social History: Smoking Status (Most current) and Tobacco Use (All prior to encounter date) This section includes the most current, and the historical, smoking and tobacco- related health factors from the [place] facility where the Encounter took place. Current Smoking Status This section includes the most current smoking, or tobacco-related health factor, from the [place] facility where the Encounter took place. Date/Time Current Smoking Status Comment Facil it March 18, 2023 02:30 PM VA-TOBACCO FORMER USER [place] [facility] [place] [facility] Tobacco Use History This section includes a history of the smoking, or tobacco-related health factors, that were collected on or before the date of the Encounter. The data comes from the [place] facility where the Encounter took place. Date/Time Smoking Status/Tobac co Use Comment Facility March 18, 2023 02:30 PM VA-TOBACCO QUIT 15 YRS OR MORE [facility] [place] [facility] Jan 11, 2022 08:30 AM VA-TOBACCO FORMER USER [facility] [place] [facility] Jan 11, 2022 08:30 AM VA-TOBACCO QUIT 15 YRS OR MORE [facility] [place] [facility] Dec 26, 2020 09:00 AM VA-TOBACCO FORMER USER [facility] [place] [facility] Dec 26, 2020 09:00 AM VA-TOBACCO QUIT 15 YRS OR MORE [facility] [place] [facility] Dec 08, 2019 09:16 AM VA-TOBACCO FORMER USER [facility] [place] [facility] Dec 08, 2019 09:16 AM VA-TOBACCO QUIT 15 YRS OR MORE [facility] [place] [facility] Oct 14, 2018 02:56 PM VA-TOBACCO FORMER USER [facility] [place] [facility] Oct 14, 2018 02:56 PM VA-TOBACCO QUIT 15 YRS OR MORE [facility] Dec 12, 2017 09:20 AM QUIT TOBACCO USE > 7 YEARS AGO quit > 30 yrs ( 2-3 pks a day) [facility] Advance Directives: All historical and current Section Date Range: From patient's date of to the date document was created. This section includes ALL of a patient's completed or amended [place] Advance and Rescinded Directives. The entries below indicate that a directive exists for the patient, but an actual copy is not included with this document. The data comes from all [place] facilities. Date Advance Directives Provider Source Feb 09, 2019 ADVANCE DIRECTIVE TIFFANIEVAN Dow [facility] Feb 08, 2019 ADVANCE DIRECTIVE KEENAKENDALLE ZEV Sierra [facility] Radiology Reports: +/- 30 days of [...] the Encounter. The data comes from all [place] treatment facilities. Date/Time Radiology Report Provider Source Jan 10, 2024 07:[address] PULMONARY NODULES W/O CONTRAST: HIGINIO CAM JR [id number] -1950 M Ex Date: JAN 10, 2024@07:59 Req Phys: NADIA DHALIWAL Loc: [facility]/NO/PACT/TELE/INTERPRETER TRANSLATOR (Req'g Loc Img Loc: [facility]/CT Service: Unknown (Case [id number] COMPLETE) CT THORAX W/O CONT (CT Detailed) CPT:14125 Reason for Study: annual f/u -look for cancer Clinical History: Report Status: Verified Date Reported: JAN 10, 2024 Date Verified: JAN 10, 2024 Strapper And Buffer E-Sig:/ES/RAKAN TERAN JR Report: Study: Noncontrast CT [...] Primary Interpreting Staff: RAKAN TERAN JR, Radiologist (Strapper And Buffer) /RAKAN CA JR [facility] Encounter Notes: All associated encounter notes This section contains the clinical notes associated to the Encounter. Date/Time Encounter Note(s) Provider Source Jan 03, 2024 09:43 AM AUDIOLOGY E & M NO TE: LOCAL TITLE: AUDIOLOGY CLINIC STANDARD TITLE: AUDIOLOGY E & M NOTE DATE OF NOTE: JAN 03, 2024@09:43 ENTRY DATE: JAN 03, 2024@09:43:26 AUTHOR: NITA PALMA COSIGNER: URGENCY: STATUS: COMPLETED [place] has a history of bilateral sensorineural hearing loss. He was seen on 01-03-24 for hearing aid follow up regarding his Geovany RICs/left earmold potato picker. The old earmold was replaced with the new one. The old earmold was discarded. Feedback test was run on the left aid with good results. Olmito will contact the clinic as needed. /gio/ Chandra POWELL, [facility]-A STAFF AUTO PARKER Signed: 01/03/2024 10:33 NITA PALMA [facility]
--- OUTSIDE RECORDS SUMMARY | 2024-11-02 06:39 | XMS_ITS ---
Author Name [place] Organization [place] Address [address] [place] [id number] Care Team Providers Care Steaming Cabinet Tender Name Role Phone YANETH JOE Primary Care [...] Policy 's Name Patient's Relationship to Policy [facility] (WNR) MEDICARE ADVANTAGE [facility] (WNR) Oct 28, 2019 [id number] IVANA CAM JONAS PATIENT Selected Encounter This section includes the information on record at [place] for the Encounter. Date/Time Encounter Type Encounter Description Reason Pro vider Source Jan 09, 2024 10:16 AM Outpatient Encounter DENTAL IHE Encounter Template [...] AMBULATORY - PSYCHIATRY [facility] [place] [facility] Mar 30, 2024 02:00 PM AMBULATORY - PSYCHIATRY [facility] [place] [facility] Apr 06, 2024 02:00 PM AMBULATORY - PSYCHIATRY [facility] [place] [facility] May 04, 2024 02:00 PM AMBULATORY - PSYCHIATRY [facility] [place] [facility] May 11, 2024 02:00 PM AMBULATORY - PSYCHIATRY [facility] [place] [facility] May 18, 2024 02:00 PM AMBULATORY - PSYCHIATRY [facility] [place] [facility] Jun 01, 2024 02:00 PM AMBULATORY - PSYCHIATRY [facility] [place] [facility] Social History: Smoking Status (Most [...] 18, 2023 02:30 PM VA-TOBACCO FORMER USER [place] [facility] [place] [facility] Tobacco Use History This section includes a history of the smoking, or tobacco-related health factors, that were collected on or before the date of the Encounter. The data comes from the [place] facility where the Encounter took place. Date/Time Smoking Status/Tobac co Use Comment Facility March 18, 2023 02:30 PM VA-TOBACCO QUIT 15 YRS OR MORE [place] [facility] [place] [facility] Jan 11, 2022 08:30 AM VA-TOBACCO FORMER USER [facility] [place] [facility] Jan 11, 2022 08:30 AM VA-TOBACCO QUIT 15 YRS OR MORE [facility] [place] [facility] Dec 26, 2020 09:00 AM VA-TOBACCO FORMER USER [place] [facility] [place] [facility] Dec 26, 2020 09:00 AM VA-TOBACCO QUIT 15 YRS OR MORE [facility] [place] [facility] Dec 08, 2019 09:16 AM VA-TOBACCO FORMER USER [place] [facility] [place] [facility] Dec 08, 2019 09:16 AM VA-TOBACCO QUIT 15 YRS OR MORE [facility] [place] [facility] Oct 14, 2018 02:56 PM VA-TOBACCO FORMER USER [place] [facility] [place] [facility] Oct 14, 2018 02:56 PM VA-TOBACCO QUIT 15 YRS OR MORE [facility] [place] [facility] Dec 12, 2017 09:20 AM QUIT TOBACCO USE > 7 YEARS AGO quit > 30 yrs ( 2-3 pks a day) [place] [facility] [place] [facility] Advance Directives: All historical and [...] 09, 2019 ADVANCE DIRECTIVE VAN MORENO [facility] Feb 08, 2019 ADVANCE DIRECTIVE SAMM BRINK [facility] Radiology Reports: +/- 30 days of [...] PULMONARY NODULES W/O CONTRAST: HIGINIO CAM JR [id number] -1950 M Exm Date: JAN 10, 2024@07:59 Req Phys: NADIA DHALIWAL Pat Loc: [facility]/NO/PACT/TELE/WAFER FABRICATION TECHNICIAN (Req'g Loc Img Loc: [facility]/CT Service: Unknown (Case [id number] COMPLETE) CT THORAX W/O CONT (CT Detailed) CPT:59751 Reason for Study: annual f/u -look for cancer Clinical History: Report Status: Verified Date Reported: JAN 10, 2024 Date Verified: JAN 10, 2024 Forestry Worker E-Sig:/ES/RAKAN TERAN JR Report: Study: Noncontrast CT [...] Primary Interpreting Staff: RAKAN TERAN JR, Radiologist (Forestry Worker) /RAKAN CA JR [facility] Encounter Notes: All associated encounter notes This section contains the clinical notes associated to the Encounter. Date/Time Encounter Note(s) Provider Source Jan 09, 2024 10:16 AM DENTISTRY TELEPHON E ENCOUNTER NOTE: LOCAL TITLE: TELEPHONE NOTE/DENTAL STANDARD TITLE: DENTISTRY TELEPHONE ENCOUNTER NOTE DATE OF NOTE: JAN 09, 2024@10:16 ENTRY DATE: JAN 09, 2024@10:16:33 AUTHOR: JOMAR DURHAM EXP COSIGNER: URGENCY: STATUS: COMPLETED Spoke with pt to confirm dental appointment on 01/10/2024 at 8:30 am. /gio/ JOMAR DURHAM ADVANCED STAFF WEAPONS OFFICER Signed: 01/09/2024 10:17 JOMAR DURHAM [facility]
--- OUTSIDE RECORDS SUMMARY | 2024-11-02 06:39 | XMS_ITS | Encounter Summary ---
Author Name [facility] [place] Address [address] [place] [id number] Care Team Providers Care Zinc Plater Name Role Phone YANETH JOE Primary Care [...] Policy 's Name Patient's Relationship to Policy [facility] (WNR) MEDICARE ADVANTAGE [facility] (R) Oct 28, 2019 [id number] IVANA CAM JONAS PATIENT Selected Encounter This section includes the information on record at [place] for the Encounter. Date/Time Encounter Type Encounter Description Reason Provider Source Jan 27, 2024 02:00 PM [facility] ICD-10-CM F43.10 Post-traumatic stress disorder, unspecified MARK,ZEUS IE IHE Encounter Template Text not used by [place] Assessments - Encounter Diagnoses This section includes the primary and secondary diagnoses documented for the Encounter. Date/Time Primary/Secondary Diagnosis Diagnosis Name Provider Source Jan 28, 2024 08:32 AM PRIMARY Post-traumatic stress disorder, unspecified MARK,[facility]ELIN E [facility] Plan of Treatment: Future Appointments (+ 6 months) and Future Tests (+/- 45 days) The Plan of Treatment section includes future care activities for the patient from all [facility]. This section includes future appointments and future orders which are active, pending or scheduled. Future Appointments This section includes appointments that were scheduled to occur 6 months from the date of the Encounter, up to a maximum of 20 appointments. The data comes from all [place] treatment facilities. Appointment Date/Time Appointment Type Appointme nt Facility Name Feb 03, 2024 02:00 PM [facility]UL[facility] [place] [facility] Feb 10, 2024 02:00 PM AMBULATORY [facility] [place] [facility] Feb 17, 2024 02:00 PM AMBULATORY [facility]RY [facility] [place] [facility] Feb 24, 2024 02:00 PM AMBULATORY [facility]RY [facility] [place] [facility] March 09, 2024 09:00 AM AMBULATORY - MEDICINE [facility] [place] [facility] March 09, 2024 02:00 PM AMBULATORY [facility] PS[facility]IATRY [facility] [place] [facility] March 16, 2024 02:00 PM AMBULATORY [facility] PS[facility]IATRY [facility] [place] [facility] March 26, 2024 09:00 AM AMBULATORY [facility] PS[facility]IATRY [facility] [place] [facility] Mar 30, 2024 02:00 PM AMBULATORY [facility] PS[facility]RY [facility] [place] [facility] Apr 06, 2024 02:00 PM AMBULATORY [facility] PS[facility]IATRY [facility] [place] [facility] May 04, 2024 02:00 PM AMBULATORY [facility] PS[facility]IATRY [facility] [place] [facility] May 11, 2024 02:00 PM AMBULATORY - PS[facility]CHIATRY [facility] [place] [facility] May 18, 2024 02:00 PM AMBULATORY [facility] PS[facility]IATRY [facility] [place] [facility] Jun 01, 2024 02:00 PM AMBULATORY [facility] PS[facility]CHIATRY [facility] [place] [facility] Jun 08, 2024 02:00 PM AMBULATORY - PS[facility]CHIATRY [facility] [place] [facility] Jun 15, 2024 02:00 PM AMBULATORY - PS[facility]CHIATRY [facility] [place] [facility] Jun 22, 2024 02:00 PM AMBULATORY [facility] PS[facility]CHIATRY [facility] [place] [facility] Jul 13, 2024 02:00 PM AMBULATORY [facility] PS[facility]CHIATRY [facility] [place] [facility] Jul 13, 2024 02:30 PM AMBULATORY - REHAB MEDICIN E [facility] [place] [facility] Jul 16, 2024 07:15 AM AMBULATORY - NONE [place] [facility] [place] [facility] Social History: Smoking Status (Most current) and Tobacco Use (All prior to encounter date) This section includes the most current, and the historical, smoking and tobacco- related health factors from the [place] facility where the Encounter took place. Current Smoking Status This section includes the most current smoking, or tobacco-related health factor, from the [place] facility where the Encounter took place. Date/Time Current Smoking Status Comment Facil it March 18, 2023 02:30 PM VA-TOBACCO QUIT 15 YRS OR MORE [place] [facility] [place] [facility] Tobacco Use History This section includes a history of the smoking, or tobacco-related health factors, that were collected on or before the date of the Encounter. The data comes from the [place] facility where the Encounter took place. Date/Time Smoking Status/Tobac co Use Comment Facility March 18, 2023 02:30 PM VA-TOBACCO QUIT 15 YRS OR MORE [facility] [place] [facility] Jan 11, 2022 08:30 AM VA-TOBACCO FORMER USER [facility] [place] [facility] Jan 11, 2022 08:30 AM VA-TOBACCO QUIT 15 YRS OR MORE [facility] [place] [facility] Dec 26, 2020 09:00 AM VA-TOBACCO FORMER USER [facility] [place] [facility] Dec 26, 2020 09:00 AM VA-TOBACCO QUIT 15 YRS OR MORE [facility] [place] [facility] Dec 08, 2019 09:16 AM VA-TOBACCO FORMER USER [facility] [place] [facility] Dec 08, 2019 09:16 AM VA-TOBACCO QUIT 15 YRS OR MORE [facility] [place] [facility] Oct 14, 2018 02:56 PM VA-TOBACCO FORMER USER [facility] [place] [facility] Oct 14, 2018 02:56 PM VA-TOBACCO QUIT 15 YRS OR MORE [facility] [place] [facility] Dec 12, 2017 09:20 AM QUIT TOBACCO USE > 7 YEARS AGO quit > 30 yrs ( 2-3 pks a day) [facility] Advance Directives: All historical and current Section Date Range: From patient's date of to the date document was created. This section includes ALL of a patient's completed or amended [place] Advance and Rescinded Directives. The entries below indicate that a directive exists for the patient, but an actual copy is not included with this document. The data comes from all [place] facilities. Date Advance Directives Provider Source Feb 09, 2019 ADVANCE DIRECTIVE VAN MORENO [facility] Feb 08, 2019 ADVANCE DIRECTIVE SAMM BRINK [facility] Radiology Reports: +/- 30 days of the [...] the Encounter. The data comes from all [place] treatment facilities. Date/Time Radiology Report Provider Source Jan 10, 2024 07:[address] PULMONARY NODULES W/O CONTRAST: HIGINIO CAM JR [id number] -[id number] M Exm Date: JAN 10, 2024@07:59 Req Phys: ANDIA DHALIWAL Pat Loc: [facility]/NO/PACT/TELE/SOLE LEVELER MACHINE (Req'g Loc Img Loc: [facility]/CT Service: Unknown (Case [id number] COMPLETE) CT THORAX W/O CONT (CT Detailed) CPT:53344 Reason for Study: annual f/u -look for cancer Clinical History: Report Status: Verified Date Reported: JAN 10, 2024 Date Verified: JAN 10, 2024 Hand Sander E-Sig:/ES/RAKAN TERAN JR Report: Study: Noncontrast CT [...] Primary Interpreting Staff: RAKAN TERAN JR, Radiologist (Hand Sander) /RAKAN CA JR [facility] [place] [facility] Encounter Notes: All associated encounter notes This section contains the clinical notes associated to the Encounter. Date/Time Encounter Note(s) Provider Source Jan 27, 2024 02:00 PM SOCIAL WORK GROUP COUNSELING NOTE: LOCAL TITLE: SOCIAL WORK GROUP NOTE STANDARD TITLE: SOCIAL WORK GROUP COUNSELING NOTE DATE OF NOTE: JAN 27, 2024@14:00 ENTRY DATE: JAN 28, 2024@08:13:56 AUTHOR: MANDY FLORES EXP COSIGNER: URGENCY: STATUS: COMPLETED This was a 60-minute supportive psychotherapy group for [place] Veterans with PTSD. 7 members were present today. Topics discussed today included: - aging and dealing with physical limitations. Members discussed ways they have had to give up doing some of the things they used to, while others talked about the struggle in doing so. - returning home from [place] and how they were received and their experiences trying to get help. They also talked about how getting help in recent years has been a more positive experience. Also discussed how it can take time to build trust when starting psychotherapy. - last week's 51 anniversary of the ending of the [place] War. Members talked about local events related to this. - experiences seeking service connection based upon one member sharing what he'd learned about someone he knew who was having difficulty getting service connection. - Out of the discussions on service connection and how they were received returning from [place], a discussion was had on how to stay focused on what was in their control and in the here and now, recognizing the positive things that have changed. Members provided one another support and feedback. Next group will be 02/03/2024 was attentive and participatory with no new problems or concerns reported. /gio/ ANSHU CHAVEZ CLINICAL REPAIRER ART OBJECTS Signed: 01/28/2024 08:33 MANDY FLORES [facility]
--- OUTSIDE RECORDS SUMMARY | 2024-11-02 06:40 | XMS_ITS | Encounter Summary ---
Author Name [facility] [place] Address [address] [place] [id number] Care Team Providers Care Theatre Program Director Name Role Phone YANETH JOE Primary Care [...] Name Patient's Relationship to Policy [facility] (WNR) MEDICARE ADVANTAGE [facility] (WNR) Oct 28, 2019 [id number] IVANA CAM JONAS PATIENT Selected Encounter This section includes the information on record at [place] for the Encounter. Date/Time Encounter Type Encounter Description Reason Provider Source May 11, 2024 02:00 PM [facility] ICD-10-CM F43.10 Post-traumatic stress disorder, unspecified MARK,ZEUS IE IHE Encounter Template Text not used by [place] Assessments - Encounter Diagnoses This section includes the primary and secondary diagnoses documented for the Encounter. Date/Time Primary/Secondary Diagnosis Diagnosis Name Provider Source May 12, 2024 07:58 AM PRIMARY Post-traumatic stress disorder, unspecified MARK,JAQUELIN E [facility] Plan of Treatment: Future Appointments (+ [...] 20 appointments. The data comes from all [place] treatment facilities. Appointment Date/Time Appointment Type Appointme nt Facility Name May 18, 2024 02:00 PM AMBULATORY [facility] [place] [facility] Jun 01, 2024 02:00 PM AMBULATORY - PS[facility]CHIATRY [facility] [place] [facility] Jun 08, 2024 02:00 PM AMBULATORY - PS[facility]CHIATRY [facility] [place] [facility] Jun 15, 2024 02:00 PM AMBULATORY - PS[facility]CHIATRY [facility] [place] [facility] Jun 22, 2024 02:00 PM AMBULATORY - PSYCHIATRY [facility] [place] [facility] Jul 13, 2024 02:00 PM AMBULATORY - PSYCHIATRY [facility] [place] [facility] Jul 13, 2024 02:30 PM AMBULATORY - REHAB MEDICIN E [facility] [place] [facility] Jul 16, 2024 07:15 AM AMBULATORY - NONE [facility] [place] [facility] Jul 20, 2024 02:00 PM AMBULATORY - PSYCHIATRY [facility] [place] [facility] Jul 27, 2024 02:00 PM AMBULATORY - PSYCHIATRY [facility] [place] [facility] Aug 03, 2024 02:00 PM AMBULATORY - PSYCHIATRY [facility] [place] [facility] Aug 24, 2024 02:00 PM AMBULATORY - PSYCHIATRY [facility] [place] [facility] Aug 31, 2024 02:00 PM AMBULATORY - PSYCHIATRY [facility] [place] [facility] Sep 08, 2024 08:00 AM AMBULATORY - MEDICINE [facility] [place] [facility] Sep 08, 2024 09:00 AM AMBULATORY - PSYCHIATRY [facility] [place] [facility] Sep 14, 2024 02:00 PM AMBULATORY - PSYCHIATRY [facility] [place] [facility] Sep 21, 2024 02:00 PM AMBULATORY - PSYCHIATRY [facility] [place] [facility] Oct 05, 2024 02:00 PM AMBULATORY - PSYCHIATRY [place] [facility] [place] [facility] Oct 12, 2024 02:00 PM AMBULATORY - PSYCHIATRY [facility] [place] [facility] Oct 19, 2024 02:00 PM AMBULATORY - PSYCHIATRY [facility] [place] [facility] Social History: Smoking Status (Most current) and Tobacco Use (All prior to encounter date) This section includes the most current, and the historical, smoking and tobacco- related health factors from the [place] facility where the Encounter took place. Current Smoking Status This section includes the most current smoking, or tobacco-related health factor, from the [place] facility where the Encounter took place. Date/Time Current Smoking Status Comment Facil it March 09, 2024 09:00 AM VA-TOBACCO FORMER USER [place] [facility] [place] [facility] Tobacco Use History This section includes a history of the smoking, or tobacco-related health factors, that were collected on or before the date of the Encounter. The data comes from the [place] facility where the Encounter took place. Date/Time Smoking Status/Tobac co Use Comment Facility March 09, 2024 09:00 AM VA-TOBACCO QUIT 15 YRS OR MORE [facility] [place] [facility] March 18, 2023 02:30 PM VA-TOBACCO FORMER USER [facility] [place] [facility] March 18, 2023 02:30 PM VA-TOBACCO QUIT 15 YRS OR MORE [facility] [place] [facility] Jan 11, 2022 08:30 AM VA-TOBACCO FORMER USER [facility] [place] [facility] Jan 11, 2022 08:30 AM VA-TOBACCO QUIT 15 YRS OR MORE [facility] [place] [facility] Dec 26, 2020 09:00 AM VA-TOBACCO FORMER USER [facility] [place] [facility] Dec 26, 2020 09:00 AM VA-TOBACCO QUIT 15 YRS OR MORE [facility] [place] [facility] Dec 08, 2019 09:16 AM VA-TOBACCO FORMER USER [facility] [place] [facility] Dec 08, 2019 09:16 AM VA-TOBACCO QUIT 15 YRS OR MORE [facility] [place] [facility] Oct 14, 2018 02:56 PM VA-TOBACCO FORMER USER [facility] [place] [facility] Oct 14, 2018 02:56 PM VA-TOBACCO QUIT 15 YRS OR MORE [facility] Dec 12, 2017 09:20 AM QUIT TOBACCO USE > 7 YEARS AGO quit > 30 yrs ( 2-3 pks a day) [facility] Advance Directives: All historical and current Section Date Range: From patient's date of to the date document was created. This section includes ALL of a patient's completed or amended [place] Advance and Rescinded Directives. The entries below indicate that a directive exists for the patient, but an actual copy is not included with this document. The data comes from all [place] facilities. Date Advance Directives Provider Source Feb 09, 2019 ADVANCE DIRECTIVE VAN MORENO [facility] Feb 08, 2019 ADVANCE DIRECTIVE SAMM BRINK V [facility] Encounter Notes: All associated encounter notes This section contains the clinical notes associated to the Encounter. Date/Time Encounter Note(s) Provider Source May 11, 2024 02:00 PM SOCIAL WORK GROUP COUNSELING NOTE: LOCAL TITLE: SOCIAL WORK GROUP NOTE STANDARD TITLE: SOCIAL WORK GROUP COUNSELING NOTE DATE OF NOTE: MAY 11, 2024@14:00 ENTRY DATE: MAY 12, 2024@07:53:02 AUTHOR: MANDY FLORES COSIGNER: URGENCY: STATUS: COMPLETED This was a 60-minute supportive psychotherapy group for [place] Veterans with PTSD. 7 members were present today. Topics discussed today included: - changes in the ID and how to get a new one. Information was exchanged. - gambling behaviors, particularly given two members like to raymundo. Discussion was facilitated regarding when gambling becomes a problem, and what behaviors can help prevent that. One member says he only brings lópez and a certain amount so that he doesn't use a card and keep spending. - alcohol use and knowing when it's a problem. - health issues of various members and their loved ones. - recent activities of daily living such as social events and family gatherings. Members provided one another support and feedback. Next group will be 05/18/2024 reported he drinks twice a week and no more than two drinks each time. He said his body doesn't like more and he thinks that will keep him from drinking more. /gio/ MANDY FLORES, [facility] CLINICAL CNC OPERATOR PROGRAMMER Signed: 05/12/2024 07:59 MANDY FLORES [facility]
--- OUTSIDE RECORDS SUMMARY | 2024-11-02 06:40 | XMS_ITS | Encounter Summary ---
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 Date/Time Encounter Type Encounter Description Reason Provider Source Jun 08, 2024 02:00 PM GROUP [facility]CHOTHERAPY [facility] ICD-10-CM F43.10 Post-traumatic stress disorder, unspecified MARK,ZEUS IE IHE Encounter Template Text not used by ID Assessments - Encounter Diagnoses This section includes the primary and secondary diagnoses documented for the Encounter. Date/Time Primary/Secondary Diagnosis Diagnosis Name Provider Source Jun 08, 2024 04:22 PM PRIMARY Post-traumatic stress disorder, unspecified MARK[facility]QUELIN E [facility] Plan of Treatment: Future Appointments (+ 6 months) and Future Tests (+/- 45 days) The Plan of Treatment section includes future care activities for the patient from all [facility]. This section includes future appointments and future orders which are active, pending or scheduled. Future Appointments This section includes appointments that were scheduled to occur 6 months from the date of the Encounter, up to a maximum of 20 appointments. The data comes from all ID treatment facilities. Appointment Date/Time Appointment Type Appointme nt Facility Name Jun 15, 2024 02:00 PM AMBULATORY [facility] [place] [facility] Jun 22, 2024 02:00 PM AMBULATORY [facility] PS[facility]IATRY [facility] [place] [facility] Jul 13, 2024 02:00 PM AMBULATORY - PS[facility]IATRY [facility] [place] [facility] Jul 13, 2024 02:30 PM AMBULATORY - REHAB MEDICIN E [facility] [place] [facility] Jul 16, 2024 07:15 AM AMBULATORY - NONE [facility] [place] [facility] Jul 20, 2024 02:00 PM AMBULATORY - PS[facility]CHIATRY [facility] [place] [facility] Jul 27, 2024 02:00 PM AMBULATORY - PS[facility]IATRY [facility] [place] [facility] Aug 03, 2024 02:00 PM AMBULATORY - PS[facility]CHIATRY [facility] [place] [facility] Aug 24, 2024 02:00 PM AMBULATORY - PS[facility]CHIATRY [facility] [place] [facility] Aug 31, 2024 02:00 PM AMBULATORY - PS[facility]CHIATRY [facility] [place] [facility] Sep 08, 2024 08:00 AM AMBULATORY - MEDICINE [facility] [place] [facility] Sep 08, 2024 09:00 AM AMBULATORY - PS[facility]CHIATRY [facility] [place] [facility] Sep 14, 2024 02:00 PM AMBULATORY - PS[facility]CHIATRY [facility] [place] [facility] Sep 21, 2024 02:00 PM AMBULATORY - PS[facility]CHIATRY [facility] [place] [facility] Oct 05, 2024 02:00 PM AMBULATORY - PS[facility]CHIATRY [facility] [place] [facility] Oct 12, 2024 02:00 PM AMBULATORY - PSYCHIATRY [facility] [place] [facility] Oct 19, 2024 02:00 PM AMBULATORY - PSYCHIATRY [facility] [place] [facility] Oct 27, 2024 11:45 AM AMBULATORY - PSYCHIATRY [facility] [place] [facility] Nov 02, 2024 02:00 PM AMBULATORY - PSYCHIATRY [facility] [place] [facility] Nov 23, 2024 02:00 PM AMBULATORY - PSYCHIATRY [facility] [place] [facility] Social History: Smoking Status (Most current) and Tobacco Use (All prior to encounter date) This section includes the most current, and the historical, smoking and tobacco- related health factors from the ID facility where the Encounter took place. Current Smoking Status This section includes the most current smoking, or tobacco-related health factor, from the ID facility where the Encounter took place. Date/Time Current Smoking Status Comment Facil it March 09, 2024 09:00 AM VA-TOBACCO FORMER USER [place] [facility] [place] [facility] Tobacco Use History This section includes a history of the smoking, or tobacco-related health factors, that were collected on or before the date of the Encounter. The data comes from the ID facility where the Encounter took place. Date/Time Smoking Status/Tobac co Use Comment Facility March 09, 2024 09:00 AM VA-TOBACCO QUIT 15 YRS OR MORE [facility] [place] [facility] March 18, 2023 02:30 PM VA-TOBACCO FORMER USER [facility] [place] [facility] March 18, 2023 02:30 PM VA-TOBACCO QUIT 15 YRS OR MORE [facility] [place] [facility] Jan 11, 2022 08:30 AM VA-TOBACCO FORMER USER [facility] [place] [facility] Jan 11, 2022 08:30 AM VA-TOBACCO QUIT 15 YRS OR MORE [facility] [place] [facility] Dec 26, 2020 09:00 AM VA-TOBACCO FORMER USER [facility] [place] [facility] Dec 26, 2020 09:00 AM VA-TOBACCO QUIT 15 YRS OR MORE [facility] [place] [facility] Dec 08, 2019 09:16 AM VA-TOBACCO FORMER USER [facility] [place] [facility] Dec 08, 2019 09:16 AM VA-TOBACCO QUIT 15 YRS OR MORE [facility] [place] [facility] Oct 14, 2018 02:56 PM VA-TOBACCO FORMER USER [facility] [place] [facility] Oct 14, 2018 02:56 PM VA-TOBACCO QUIT 15 YRS OR MORE [facility] Dec 12, 2017 09:20 AM QUIT TOBACCO USE > 7 YEARS AGO quit > 30 yrs ( 2-3 pks a day) [facility] Advance Directives: All historical and current Section Date Range: From patient's date of to the date document was created. This section includes ALL of a patient's completed or amended [place] Advance and Rescinded Directives. The entries below indicate that a directive exists for the patient, but an actual copy is not included with this document. The data comes from all [place] facilities. Date Advance Directives Provider Source Feb 09, 2019 ADVANCE DIRECTIVE VAN MORENO [facility] Feb 08, 2019 ADVANCE DIRECTIVE KEENASAMM [facility] Encounter Notes: All associated encounter notes This section contains the clinical notes associated to the Encounter. 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 10 members were present today. Topics discussed today included: - recovery from drugs and alcohol. Members supported one member who is considering stopping drinking. The similarities between drug and alcohol addiction were brought up by members. Health reasons for sobriety were also brought up. - health issues of various members and their loved ones. - recent activities of daily living. - support regarding one member's housing issue. - loss, including of family members. Members provided one another support and feedback. Next group will be 06/15/2024 shared he continues to have a couple drinks of alcohol a week but feels it is a slippery slope and is considering returning to no use. /gio/ MANDY FLORES [facility] [place] CLINICAL TRAY FILLER Signed: 06/08/2024 16:24 MANDY FLORES [facility]
--- OUTSIDE RECORDS SUMMARY | 2024-11-02 06:40 | XMS_ITS | Encounter Summary ---
Author Name [facility] [place] Organization [place] Address [address] [place] [id number] Care Team Providers Care Back Sewer Name Role Phone YANETH JOE Primary Care [...] Policy 's Name Patient's Relationship to Policy [facility] (WNR) MEDICARE ADVANTAGE [facility] (R) Oct 28, 2019 [id number] IVANA CAM JONAS PATIENT Selected Encounter This section includes the information on record at [place] for the Encounter. Date/Time Encounter Type Encounter Description Reason Provider Source March 16, 2024 02:00 PM GROUP PS[facility]CHOTHERAPY [facility] ICD-10-CM F43.10 Post-traumatic stress disorder, unspecified MARK,ZEUS IE IHE Encounter Template Text not used by [place] Assessments - Encounter Diagnoses This section includes the primary and secondary diagnoses documented for the Encounter. Date/Time Primary/Secondary Diagnosis Diagnosis Name Provider Source March 17, 2024 08:07 AM PRIMARY Post-traumatic stress disorder, unspecified MARK,JAQUELIN E [facility] Plan of Treatment: Future Appointments (+ 6 months) and Future Tests (+/- 45 days) The Plan of Treatment section includes future care activities for the patient from all VA treatment[facility]. This section includes future appointments and future orders which are active, pending or scheduled. Future Appointments This section includes appointments that were scheduled to occur 6 months from the date of the Encounter, up to a maximum of 20 appointments. The data comes from all [place] treatment facilities. Appointment Date/Time Appointment Type Appointme nt Facility Name March 26, 2024 09:00 AM AMBULATORY - [...] REHAB MEDICIN E [facility] [place] [facility] Jul 16, 2024 07:15 AM AMBULATORY - NONE [facility] [place] [facility] Jul 20, 2024 02:00 PM AMBULATORY - PSYCHIATRY [facility] [place] [facility] Jul 27, 2024 02:00 PM AMBULATORY - PSYCHIATRY [facility] [place] [facility] Aug 03, 2024 02:00 PM AMBULATORY - PSYCHIATRY [facility] [place] [facility] Aug 24, 2024 02:00 PM AMBULATORY - PSYCHIATRY [facility] [place] [facility] Aug 31, 2024 02:00 PM [facility] Sep 08, 2024 08:00 AM AMBULATORY - MEDICINE [facility] Sep 08, 2024 09:00 AM AMBULATORY - PSYCHIATRY [facility] Lab Results: +/- 30 days of the encounter This section includes the Chemistry and Hematology Lab Results on record with PA for the patient. Radiology Reports and Pathology Reports are provided separately, in subsequent sections. Lab Results This section contains the Chemistry/Hematology Results that were resulted 30 days before or 30 daysafter the date of the Encounter. Date/Time Source Result Type Result - Unit Interpretation Reference Range Comment March 03, 2024 07:46 AM [facility] LIPID PANEL, NON FASTING Specimen Type: SERUM No comment entered. Ordering Provider: YANETH JOE Report Released Date/Time: February 28, 2024 10:29 AM Reporting Lab: [facility] [address] [facility] [address] Performing Lab: [facility] [address] [facility] [address] CHOLESTEROL 190 mg/dL TRIGLYCERIDE 68 mg/dL 0-150 LDL calculated 102 mg/dL 0-129 CHOL/HDL 2.6 HDL CHOLESTEROL 74 mg/dL H 40-60 March 03, 2024 07:46 AM [facility] BASIC METABOLIC PANEL (non-fasting) Specimen Type: SERUM No comment entered. Ordering Provider: YANETH JOE Report Released Date/Time: February 28, 2024 10:29 AM Reporting Lab: [facility] [address] [facility] [address] Performing Lab: [address] [address] UREA NITROGEN 20 mg/dL 7-25 GLUCOSE 105 [...] 09, 2024 09:00 AM VA-TOBACCO FORMER USER [place] [facility] [place] [facility] Tobacco [...] [facility] [place] [facility] March 18, 2023 02:30 PM VA-TOBACCO FORMER USER [facility] [place] [facility] March 18, 2023 02:30 PM VA-TOBACCO [...] 30 yrs ( 2-3 pks a day) [facility] [place] [facility] Advance Directives: All historical and current Section [...] Feb 09, 2019 ADVANCE DIRECTIVE VAN MORENO [facility] Feb 08, 2019 ADVANCE DIRECTIVE SAMM BRINK [facility] Encounter Notes: All associated encounter notes This section contains the clinical notes associated to the Encounter. 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 7 members were present today. Topics discussed today included: - events, pleasurable activities, and recreational activities that members engage in that help support them. - parenting and childrearing, including how things were different when they were young. - recovery from alcohol use, stemming from one member's decision to drink one time a week. This prompted a discussion of others' experiences. - health issues of various members and their loved ones. Members provided one another support and feedback. Next group will be 03/30/2024 shared he had two bloody pato drinks the other day. He said his body didn't feel good afterwards. He plans to limit his drinking to once a week. The group provided feedback on this and it prompted a more in depth discussion. /gio/ MANDY FLORES [facility] CLINICAL WAITER/WAITRESS INFORMAL Signed: 03/17/2024 08:08 MANDY FLORES [facility]
--- OUTSIDE RECORDS SUMMARY | 2024-11-02 06:40 | XMS_ITS | Encounter Summary ---
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 Date/Time Encounter Type Encounter Description Reason Pro vider Source March 09, 2024 12:00 AM Outpatient Encounter EVENT (HISTORICAL) IHE Encounter Template Text not used by [place] Plan of Treatment: Future Appointments (+ 6 months) and Future Tests (+/- 45 days) The Plan of Treatment section includes future care activities for the patient from all [place] treatmentfacilities. This section includes future appointments and future orders which are active, pending or scheduled. Future Appointments This section includes appointments that were scheduled to occur 6 months from the date of the Encounter, up to a maximum of 20 appointments. The data comes from all [place] treatment facilities. Appointment Date/Time Appointment Type Appointme nt Facility Name March 16, 2024 02:00 PM AMBULATORY - PS[facility]CHIATRY [facility] [place] [facility] March 26, 2024 09:00 AM AMBULATORY - PSYCHIATRY [facility] [place] [facility] Mar 30, 2024 02:00 PM AMBULATORY - PSYCHIATRY [facility] [place] [facility] Apr 06, 2024 02:00 PM AMBULATORY - PSYCHIATRY [facility] [place] [facility] May 04, 2024 02:00 PM AMBULATORY - PSYCHIATRY [facility] [place] [facility] May 11, 2024 02:00 PM AMBULATORY - PSYCHIATRY [facility] [place] [facility] May 18, 2024 02:00 PM AMBULATORY - PSYCHIATRY [facility] [place] [facility] Jun 01, 2024 02:00 PM AMBULATORY - PSYCHIATRY [facility] [place] [facility] Jun 08, 2024 02:00 PM AMBULATORY - PSYCHIATRY [facility] [place] [facility] Jun 15, 2024 02:00 PM AMBULATORY - PSYCHIATRY [facility] [place] [facility] Jun 22, 2024 02:00 PM AMBULATORY - PSYCHIATRY [facility] [place] [facility] Jul 13, 2024 02:00 PM AMBULATORY - PSYCHIATRY [facility] [place] [facility] Jul 13, 2024 02:30 PM AMBULATORY - REHAB MEDICIN E [facility] [place] [facility] Jul 16, 2024 07:15 AM AMBULATORY - NONE [facility] [place] [facility] Jul 20, 2024 02:00 PM AMBULATORY - PSYCHIATRY [facility] [place] [facility] Jul 27, 2024 02:00 PM AMBULATORY - PSYCHIATRY [facility] [place] [facility] Aug 03, 2024 02:00 PM AMBULATORY - PSYCHIATRY [facility] [place] [facility] Aug 24, 2024 02:00 PM AMBULATORY - PSYCHIATRY [facility] [place] [facility] Aug 31, 2024 02:00 PM AMBULATORY - PSYCHIATRY [facility] [place] [facility] Sep 08, 2024 08:00 AM AMBULATORY - MEDICINE [facility] [place] [facility] Lab Results: +/- 30 days of the [...] Range Comment March 03, 2024 07:46 AM [place] [employer] [facility] [employer] [facility] LIPID PANEL, NON FASTING Specimen Type: SERUM No comment entered. Ordering Provider: YANETH JOE Report Released Date/Time: February 28, 2024 10:29 AM Reporting Lab: [facility] [facility] [employer] [address] Performing Lab: [facility] [address] [address] CHOLESTEROL 190 mg/dL TRIGLYCERIDE 68 mg/dL 0-150 LDL calculated 102 mg/dL 0-129 CHOL/HDL 2.6 HDL CHOLESTEROL 74 mg/dL H 40-60 March 03, 2024 07:46 AM [facility] [employer] CommunicationsPRESBYTERIAN HOSPITALKiha Software [facility] BASIC METABOLIC PANEL (non-fasting) Specimen Type: SERUM No comment entered. Ordering Provider: YANETH JOE Report Released Date/Time: February 28, 2024 10:29 AM Reporting Lab: [place] [employer] [facility] [employer] [address] Performing Lab: [facility] [address] [address] UREA NITROGEN 20 mg/dL 7-25 GLUCOSE 105 mg/dL H 65-100 SODIUM 143 mmol/L 135-145 POTASSIUM 4.6 mmol/L 3.5-5.0 CHLORIDE 107 mmol/L 100-110 CO2 26 meq/L 20-30 CREATININE, Serum 1.16 mg/dL 0.50-1.40 eGFR(CKD-EPI 2020) 65 mL/min >60 Vital Signs: All taken on the encounter date This section contains inpatient and outpatient Vital Signs collected on the date of the Encounter. Date/Time Temperature Pulse Blood Pressure Respiratory Rate SP02 Pain Height Weight Body Mass Index Source March 09, 2024 08:55 AM 97.8 64 130/79 16 98 0 181 25 [facility] [employer] [facility] Social History: Smoking Status (Most current) [...] 09, 2024 09:00 AM VA-TOBACCO FORMER USER [place] [facility] [place] [facility] Tobacco Use History This section includes a history of the smoking, or tobacco-related health factors, that were collected on or before the date of the Encounter. The data comes from the [place] facility where the Encounter took place. Date/Time Smoking Status/Tobac co Use Comment Facility March 09, 2024 09:00 AM VA-TOBACCO QUIT 15 YRS OR MORE [facility] [place] [facility] March 18, 2023 02:30 PM VA-TOBACCO FORMER USER [facility] [place] [facility] March 18, 2023 02:30 PM VA-TOBACCO QUIT 15 YRS OR MORE [place] [facility] [place] [facility] Jan 11, 2022 08:30 AM VA-TOBACCO FORMER USER [facility] [place] [facility] Jan 11, 2022 08:30 AM VA-TOBACCO QUIT 15 YRS OR MORE [facility] [place] [facility] Dec 26, 2020 09:00 AM VA-TOBACCO FORMER USER [facility] [place] [facility] Dec 26, 2020 09:00 AM VA-TOBACCO QUIT 15 YRS OR MORE [facility] [place] [facility] Dec 08, 2019 09:16 AM VA-TOBACCO FORMER USER [facility] [place] [facility] Dec 08, 2019 09:16 AM VA-TOBACCO QUIT 15 YRS OR MORE [facility] [place] [facility] Oct 14, 2018 02:56 PM VA-TOBACCO FORMER USER [facility] [place] [facility] Oct 14, 2018 02:56 PM VA-TOBACCO QUIT 15 YRS OR MORE [facility] [place] [facility] Dec 12, 2017 09:20 AM QUIT TOBACCO USE > 7 YEARS AGO quit > 30 yrs ( 2-3 pks a day) [facility] [place] [facility] Advance Directives: All historical and current Section Date Range: From patient's date of to the date document was created. This section includes ALL of a patient's completed or amended [place] Advance and Rescinded Directives. The entries below indicate that a directive exists for the patient, but an actual copy is not included with this document. The data comes from all [place] facilities. Date Advance Directives Provider Source Feb 09, 2019 ADVANCE DIRECTIVE VAN MORENO [facility] Feb 08, 2019 ADVANCE DIRECTIVE SAMM BRINK [facility]
--- OUTSIDE RECORDS SUMMARY | 2024-11-02 06:40 | XMS_ITS | Encounter Summary ---
Author Name [facility] [place] [facility] [place] [facility] [place] Address [address] [place] [id number] Care Team Providers Care Manager Operations Name Role Phone YANETH JOE Primary Care [...] Name Patient's Relationship to Policy [facility] (WNR) MEDICARE ADVANTAGE [facility] (WNR) Oct 28, 2019 [id number] IVANA CAM JONAS PATIENT Selected Encounter This section includes the information on record at [place] for the Encounter. Date/Time Encounter Type Encounter Description Reason Provider Source May 04, 2024 02:00 PM [facility] ICD-10-CM F43.10 Post-traumatic stress disorder, unspecified MARK,ZEUS IE IHE Encounter Template Text not used by [place] Assessments - Encounter Diagnoses This section includes the primary and secondary diagnoses documented for the Encounter. Date/Time Primary/Secondary Diagnosis Diagnosis Name Provider Source May 04, 2024 04:04 PM PRIMARY Post-traumatic stress disorder, unspecified MARK,JAQUELIN E [facility] Plan of Treatment: Future Appointments (+ 6 months) and Future Tests (+/- 45 days) The Plan of Treatment section includes future care activities for the patient from all [facility]. This section includes future appointments and future orders which are active, pending or scheduled. Future Appointments This section includes appointments that were scheduled to occur 6 months from the date of the Encounter, up to a maximum of 20 appointments. The data comes from all [place] treatment facilities. Appointment Date/Time Appointment Type Appointme nt Facility Name May 11, 2024 02:00 PM AM[facility]ULATORY [facility] May 18, 2024 02:00 PM AMBULATORY [facility] [place] [facility] Jun 01, 2024 02:00 PM AMBULATORY [facility] [place] [facility] Jun 08, 2024 02:00 PM AMBULATORY [facility] [place] [facility] Jun 15, 2024 02:00 PM AMBULATORY [facility]AT[facility] [place] [facility] Jun 22, 2024 02:00 PM AMBULATORY [facility] PS[facility]IATRY [facility] [place] [facility] Jul 13, 2024 02:00 PM AMBULATORY [facility] PS[facility]ATRY [facility] [place] [facility] Jul 13, 2024 02:30 PM AMBULATORY - REHAB MEDICIN E [facility] [place] [facility] Jul 16, 2024 07:15 AM AMBULATORY - NONE [facility] [place] [facility] Jul 20, 2024 02:00 PM AMBULATORY - PS[facility]IATRY [facility] [place] [facility] Jul 27, 2024 02:00 PM AMBULATORY - PS[facility]IATRY [facility] [place] [facility] Aug 03, 2024 02:00 PM AMBULATORY - PS[facility]CHIATRY [facility] [place] [facility] Aug 24, 2024 02:00 PM AMBULATORY - PS[facility]IATRY [facility] [place] [facility] Aug 31, 2024 02:00 PM AMBULATORY - PS[facility]CHIATRY [facility] [place] [facility] Sep 08, 2024 08:00 AM AM[facility]ULATORY [facility] MEDICINE [facility] [place] [facility] Sep 08, 2024 09:00 AM AMBULATORY - PS[facility]CHIATRY [facility] [place] [facility] Sep 14, 2024 02:00 PM AMBULATORY [facility] PS[facility] [place] [facility] Sep 21, 2024 02:00 PM [place] [facility] [place] [facility] Oct 05, 2024 02:00 PM [place] [facility] [place] [facility] Oct 12, 2024 02:00 PM [place] [facility] [place] [facility] Social History: Smoking Status (Most current) [...] it March 09, 2024 09:00 AM VA-TOBACCO QUIT 15 YRS OR MORE [place] [facility] [place] [facility] Tobacco Use History This section includes a history of the smoking, or tobacco-related health factors, that were collected on or before the date of the Encounter. The data comes from the [place] facility where the Encounter took place. Date/Time Smoking Status/Tobac co Use Comment Facility March 09, 2024 09:00 AM VA-TOBACCO QUIT 15 YRS OR MORE [place] [facility] [place] [facility] March 18, 2023 02:30 PM VA-TOBACCO FORMER USER [facility] [place] [facility] March 18, 2023 02:30 PM VA-TOBACCO QUIT 15 YRS OR MORE [facility] [place] [facility] Jan 11, 2022 08:30 AM VA-TOBACCO FORMER USER [facility] [place] [facility] Jan 11, 2022 08:30 AM VA-TOBACCO QUIT 15 YRS OR MORE [facility] [place] [facility] Dec 26, 2020 09:00 AM VA-TOBACCO FORMER USER [facility] [place] [facility] Dec 26, 2020 09:00 AM VA-TOBACCO QUIT 15 YRS OR MORE [facility] [place] [facility] Dec 08, 2019 09:16 AM VA-TOBACCO FORMER USER [facility] [place] [facility] Dec 08, 2019 09:16 AM VA-TOBACCO QUIT 15 YRS OR MORE [facility] [place] [facility] Oct 14, 2018 02:56 PM VA-TOBACCO FORMER USER [facility] Oct 14, 2018 02:56 PM [place]-TOBACCO QUIT 15 YRS OR MORE [facility] Dec 12, 2017 09:20 AM QUIT TOBACCO USE > 7 YEARS AGO quit > 30 yrs ( 2-3 pks a day) [facility] Advance Directives: All historical and current [...] Feb 09, 2019 ADVANCE DIRECTIVE VAN MORENO [facility] Feb 08, 2019 ADVANCE DIRECTIVE SAMM BRINK [facility] Encounter Notes: All associated encounter notes This section contains the clinical notes associated to the Encounter. Date/Time Encounter Note(s) Provider Source May 04, 2024 02:00 PM SOCIAL WORK GROUP COUNSELING NOTE: LOCAL TITLE: SOCIAL WORK GROUP NOTE STANDARD TITLE: SOCIAL WORK GROUP COUNSELING NOTE DATE OF NOTE: MAY 04, 2024@14:00 ENTRY DATE: MAY 04, 2024@15:54:46 AUTHOR: MANDY FLORES COSIGNER: URGENCY: STATUS: COMPLETED This was a 60-minute supportive psychotherapy group for [employer] Veterans with PTSD. 9 members were present today. Topics discussed today included: - recent stressors such as anniversaries of losses. - health issues of various members and their loved ones. Themes including exercise, health care, diet, and battling certain health issues were discussed. - recent activities of daily living, including trips/vacations and time with family. Members provided one another support and feedback. Next group will be 05/11/2024 [place] reported he was doing well, with no new problems or concerns. He was attentive and participatory. /gio/ MANDY FLORES [facility] Signed: 05/04/2024 16:05 MANDY FLORES [facility]
--- OUTSIDE RECORDS SUMMARY | 2024-11-02 06:40 | XMS_ITS ---
Author Name [facility] [place] Organization [facility] [place] Address [address] [place] [id number] Care Team Providers Care Charging Manipulator Name Role Phone YANETH JOE Primary Care [...] Name Patient's Relationship to Policy [facility] ([facility]) MEDICARE ADVANTAGE [facility] ([facility]) Oct 28, 2019 [id number] IVANA CAM PATIENT Selected Encounter This section includes the information on record at [place] for the Encounter. Date/Time Encounter Type Encounter Description Reason Provider Source March 09, 2024 09:00 AM OFFICE O/P EST MOD 30 MIN PRIMARY CARE/MEDICINE ICD-10-CM 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, unspecified site YANETH JOE Ayah Encounter Template Text not used by [place] Assessments - Encounter Diagnoses This section includes the primary and secondary diagnoses documented for the Encounter. Date/Time Primary/Secondary Diagnosis Diagnosis Name Provider Source March 09, 2024 10:18 AM PRIMARY Aortic ectasia, unspecified site YANETH JOE [facility] [place] [facility] March 09, 2024 10:18 AM SECONDARY Alcohol dependence, in remission FURCOLO,YANETH [facility] [place] [facility] March 09, 2024 10:18 AM SECONDARY Allergy to seafood FURCOLO,YANETH [facility] [place] [facility] March 09, 2024 10:18 AM SECONDARY Emphysema, unspecified FURCOLO,YANETH [facility] [place] [facility] March 09, 2024 10:18 AM SECONDARY Essential (primary) hypertension FURCOLO,YANETH [facility] [place] [facility] March 09, 2024 10:18 AM SECONDARY Hyperlipidemia, unspecified FURCOLO,YANETH [facility] [place] [facility] March 09, 2024 10:18 AM SECONDARY Post-traumatic stress disorder, chronic FURCOLO,YANETH [facility] [place] [facility] Plan of Treatment: Future Appointments (+ 6 months) and Future Tests (+/- 45 days) The Plan of Treatment section includes future care activities for the patient from [facility] [place] [facility]. This section includes future appointments and future orders which are active, pending or scheduled. Future Appointments This section includes appointments that were scheduled to occur 6 months from the date of the Encounter, up to a maximum of 20 appointments. The data comes from all [place] treatment facilities. Appointment Date/Time Appointment Type Appointme nt Facility Name March 16, 2024 02:00 PM AMBULATORY - PSYCHIATRY [facility] [place] [facility] March 26, 2024 09:00 AM AMBULATORY - PSYCHIATRY [facility] [place] [facility] Mar 30, 2024 02:00 PM AMBULATORY - PSYCHIATRY [facility] [place] [facility] Apr 06, 2024 02:00 PM AMBULATORY - PSYCHIATRY [facility] [place] [facility] May 04, 2024 02:00 PM AMBULATORY - PSYCHIATRY [facility] [place] [facility] May 11, 2024 02:00 PM AMBULATORY - PSYCHIATRY [facility] [place] [facility] May 18, 2024 02:00 PM AMBULATORY - PSYCHIATRY [facility] [place] [facility] Jun 01, 2024 02:00 PM AMBULATORY - PSYCHIATRY [facility] [place] [facility] Jun 08, 2024 02:00 PM AMBULATORY - PSYCHIATRY [facility] [place] [facility] Jun 15, 2024 02:00 PM AMBULATORY - PSYCHIATRY [facility] [place] [facility] Jun 22, 2024 02:00 PM [facility]BULATORY [facility] [place] [facility] Jul 13, 2024 02:00 PM AMBULATORY - PSYCHIATRY [facility] [place] [facility] Jul 13, 2024 02:30 PM AMBULATORY - REHAB MEDICIN E [facility] [place] [facility] Jul 16, 2024 07:15 AM AMBULATORY - NONE [facility] [place] [facility] Jul 20, 2024 02:00 PM AMBULATORY - PSYCHIATRY [facility] Jul 27, 2024 02:00 PM AMBULATORY - PSYCHIATRY [facility] [place] [facility] Aug 03, 2024 02:00 PM AMBULATORY - PSYCHIATRY [facility] [place] [facility] Aug 24, 2024 02:00 PM AMBULATORY - PSYCHIATRY [facility] [place] [facility] Aug 31, 2024 02:00 PM AMBULATORY - PSYCHIATRY [facility] [place] [facility] Sep 08, 2024 08:00 AM AMBULATORY - MEDICINE [facility] [place] [facility] Lab Results: +/- 30 days of the encounter This section includes the Chemistry and Hematology Lab Results on record with [place] for the patient. Radiology Reports and Pathology Reports are provided separately, in subsequent sections. Lab Results This section contains the Chemistry/Hematology Results that were resulted 30 days before or 30 daysafter the date of the Encounter. Date/Time Source Result Type Result - Unit Interpretation Reference Range Comment March 03, 2024 07:46 AM [place] [facility] [place] [facility] LIPID PANEL, NON FASTING Specimen Type: SERUM No comment entered. Ordering Provider: YANETH JOE Report Released Date/Time: February 28, 2024 10:29 AM Reporting [facility] [place] [facility] [address] [facility] [address] Performing Lab: [facility] [address] CHOLESTEROL 190 mg/dL TRIGLYCERIDE 68 mg/dL 0-150 LDL calculated 102 mg/dL 0-129 CHOL/HDL 2.6 HDL CHOLESTEROL 74 mg/dL H 40-60 March 03, 2024 07:46 AM [facility] BASIC METABOLIC PANEL (non-fasting) Specimen Type: SERUM No comment entered. Ordering Provider: YANETH JOE Report Released Date/Time: February 28, 2024 10:29 AM Reporting Lab: [facility] [address] [address] Performing Lab: [facility] [address] [address] UREA NITROGEN 20 mg/dL 7-25 GLUCOSE 105 [...] 64 130/79 16 98 0 181 25 [facility] Social History: Smoking Status (Most current) and [...] took place. Date/Time Current Smoking Status Comment [facility] it March 09, 2024 09:00 AM VA-TOBACCO FORMER USER [facility] Tobacco Use History This section includes a history of the smoking, or tobacco-related health factors, that were collected on or before the date of the Encounter. The data comes from the [place] facility where the Encounter took place. Date/Time Smoking Status/Tobac co Use Comment Facility March 09, 2024 09:00 AM [place]-TOBACCO QUIT 15 YRS OR MORE [facility] March 18, 2023 02:30 PM VA-TOBACCO FORMER USER [facility] [place] [facility] March 18, 2023 02:30 PM VA-TOBACCO QUIT 15 YRS OR MORE [facility] [place] [facility] Jan 11, 2022 08:30 AM VA-TOBACCO FORMER USER [facility] [place] [facility] Jan 11, 2022 08:30 AM VA-TOBACCO QUIT 15 YRS OR MORE [facility] [place] [facility] Dec 26, 2020 09:00 AM VA-TOBACCO FORMER USER [facility] [place] [facility] Dec 26, 2020 09:00 AM VA-TOBACCO QUIT 15 YRS OR MORE [facility] [place] [facility] Dec 08, 2019 09:16 AM VA-TOBACCO FORMER USER [facility] [place] [facility] Dec 08, 2019 09:16 AM VA-TOBACCO QUIT 15 YRS OR MORE [facility] [place] [facility] Oct 14, 2018 02:56 PM VA-TOBACCO FORMER USER [facility] [place] [facility] Oct 14, 2018 02:56 PM VA-TOBACCO QUIT 15 YRS OR MORE [facility] [place] [facility] Dec 12, 2017 09:20 AM QUIT TOBACCO USE > 7 YEARS AGO quit > 30 yrs ( 2-3 pks a day) [place] [facility] [place] [facility] Advance Directives: All historical and current [...] Feb 09, 2019 ADVANCE DIRECTIVE VAN MORENO [place] [facility] [place] [facility] Feb 08, 2019 ADVANCE DIRECTIVE SAMM BRINK [facility] [place] [facility] Encounter Notes: All associated encounter notes This section contains the clinical notes associated to the Encounter. Date/Time Encounter Note(s) Provider Source March 09, 2024 09:25 AM PHYSICIAN NOTE: LOCAL TITLE: MD NOTE STANDARD TITLE: PHYSICIAN NOTE DATE OF NOTE: MARCH 09, 2024@09:25 ENTRY DATE: MARCH 09, 2024@09:26:07 AUTHOR: YANETH JOE COSIGNER: URGENCY: STATUS: COMPLETED HIGINIO CAM JR is a 73 year old BLACK OR MALE who is being seen today in primary care for routine follow up. === CARE TEAM === Community Primary Care Provider: Dr. 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 +AO === HISTORY OF PRESENT ILLNESS === Patient presents today for routine f/u. reviewed labs. no further hematuria. discussed recent lung ca screening eval- CT - which also visualized AAA- stable. === RELEVANT PAST MEDICAL HISTORY === Active problems - Computerized Problem List is the source for the followin. 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 Bilateral hearing loss 3. Emphysema of lung On chest CT 07/2022 4. Incomplete bladder emptying NON [place] UROLOGY CONSULT - orderby non VA PCP Medication - ? ( not confiemd) 5. Adult screening status colonoscopy - due 2019 ( per pt report) 6. Hyperlipidemia 7. Patient requires hospitalization 02/13/18 - [facility] - Pancreatitis - 2nd to etoh 06/2018- Pneumonia ( ct of chest abd - done ) - [facility] 8. Chronic alcoholism in remission reviewed reviewed reviewed reviewed reviewed reivnataliya 9. Chronic post-traumatic stress disorder Reviewed reviewed reviewed reviewed reviewed reviewed reviewed 10. Under care of multiple providers NON VA PCP- [facility], [facility] on 10/22/17. CWM/NO/PACT 8- SCHEDULED 12/12/17 Ortho - DR BARRIENTOS - [facility] [address] 11. Anaphylactic reaction 12. History of surgery right total hip 09/04/05 [facility] colonoscopy - ( polypectomy) 13. Hypertension 14. 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 previous problem drinker Tobacco Use: quit in 1990, smoked for 30 years- 3-4 packs Drug Use: none Exercise: [place] daily 2 miles === ALLERGIES === SHELLFISH, BEE STINGS, ENVIRONMENTAL ALLERGENS === MEDICATIONS === VA and Non VA meds were reconciled with the patient who left with a corrected copy. Active and Recently Outpatient Medications (excluding Supplies): Active Outpatient Medications Status 1) AMLODIPINE BESYLATE 5MG TAB TAKE ONE TABLET BY MOUTH ACTIVE ONCE DAILY FOR BLOOD PRESSURE/HEART, DO NOT TAKE WITH GRAPEFRUIT JUICE 2) PRAZOSIN HCL 2MG CAP TAKE ONE CAPSULE BY MOUTH AT ACTIVE BEDTIME 3) ROSUVASTATIN [place] 20MG TAB TAKE ONE TABLET BY MOUTH ACTIVE ONCE DAILY FOR CHOLESTEROL 4) SODIUM FLUORIDE 1.1% TOOTHPASTE BRUSH SMALL AMOUNT TO ACTIVE TEETH TWICE DAILY FOR TOOTH DECAY PREVENTION Active Non-VA Medications Status 1) Non-VA BENAZEPRIL HCL 20MG TAB 20MG BY MOUTH EVERY ACTIVE MORNING 2) Non-VA EPINEPHRINE (EQV-EPI PEN) 0.3ML/0.3ML INJ,SOLN ACTIVE INTRAMUSCULARLY 3) Non-VA FEXOFENADINE HCL 180MG TAB 180MG BY MOUTH ONCE ACTIVE DAILY 7 Total Medications === REVIEW OF SYMPTOMS === NEGATIVE FOR: CONSTITUTION: no weight loss/gain, fatigue, fevers, night sweats HEENT: no vision problems, hearing loss,swallowing difficulties, sinus pain CV: no chest pain, palpitations, dyspnea on exertion, orthopnea RESP: no cough, shortness of breath, wheezing GI: no abdominal pain, N/V/D, constipation, blood in stool, normal appetite : no urinary frequency, nocturia, hematuria MUSC: no joint pain, joint swelling, muscle aches NEURO: no headaches, dizziness, memory loss, tremor, weakness PSYCH: no depression, anxiety, suicidal or homicidal thoughts SKIN: no rash, new skin lesions === PHYSICAL EXAM === Vitals: - - - - - - - B/P: 130/79 (03/09/2024 08:55) pulse: 64 (03/09/2024 08:55) resp: 16 (03/09/2024 08:55) temp: 97.8 F [36.6 C] (03/09/2024 08:55) Ht: Unavailable (01/10/2024 07:22) Wgt: 181 lb [82.10 kg] (03/09/2024 08:55) BMI: BMI: Exam: - - - - - - - General: A&O x 3, no acute distress, normal affect and mood Neck: normal thyroid, normal carotids- no bruits CV: RRR S1S2, no murmur Resp: LCTA bilat, no wheezing, rales or rhonchi Neuro: grossly intact, no visible tremor, normal memory and speech Extremities: normal movement of extremities, normal gait, normal strength no LE edema === RECENT LABS === CHEM 7 TREND LAB CUMULATIVE SELECTED Collection DT Spec GLUCOSE BUN CREATIN Sodium K+/Pot CL CO2 03/03/2024 07:46 SERUM 105 H 20 1.16 143 4.6 107 26 09/23/2023 08:12 SERUM 97 18 1.08 146 H 4.9 108 28 03/11/2023 07:58 SERUM 94 19 0.95 140 4.8 105 27 LIVER PANEL TREND Collection DT Spec AST ALT T BILI ALK JESUS T. PROT ALBUMIN 03/11/2023 07:58 SERUM 21 45 0.5 173 H 7.1 3.6 07/23/2022 07:14 SERUM 24 23 0.6 69 7.3 3.9 05/22/2021 07:41 SERUM 19 19 0.5 71 7.1 3.8 07/28/2020 10:05 SERUM 21 24 0.5 72 7.1 4.1 08/18/2018 09:12 SERUM 31 39 0.5 70 7.7 4.1 LIPID PANEL TREND Collection DT Spec CHOL HDL CHO/HDL LDL-c TRIG 03/03/2024 07:46 SERUM 190 74 H 2.6 102 68 09/23/2023 08:12 SERUM 215 H 76 H 2.8 125.8 66 03/11/2023 07:58 SERUM 288 H 65 H 4.4 210 H 65 07/23/2022 07:14 SERUM 229 H 70 H 3.3 150 H 47 08/18/2019 07:06 SERUM 220 H 73 H 3.0 136 H 56 CBC TREND Collection DT Spec WBC RBC HGB HCT MCV MCH PLT 09/23/2023 08:12 BLOOD 5.74 5.55 14.1 43.5 78.4 L 25.4 L 231 03/11/2023 07:58 BLOOD 5.07 5.45 13.3 41.4 76.0 L 24.4 L 315 07/23/2022 07:14 BLOOD 4.95 5.65 14.0 43.7 77.3 L 24.8 L 227 05/22/2021 07:41 BLOOD 4.34 L 5.41 13.6 42.5 78.6 L 25.1 L 236 07/28/2020 10:05 BLOOD 5.33 5.47 14.0 43.6 79.7 L 25.6 L 245 PSA TREND Collection DT Spec PSA SR- 02/06/2019 09:30 SERUM 2.50 HEMOGLOBIN A1C TREND Collection DT Spec HGBA1c 07/23/2022 07:14 BLOOD 5.4 05/22/2021 07:41 BLOOD 5.6 07/28/2020 10:05 BLOOD 5.8 H 02/06/2019 09:30 BLOOD 5.8 H 03/04/2018 16:13 BLOOD 5.7 H === ASSESSMENT AND PLAN === Active problems - Computerized Problem List is the source for the followin. 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 Bilateral hearing loss 3. Emphysema of lung On chest CT 07/2022 4. Incomplete bladder emptying NON [place] UROLOGY CONSULT - orderby non VA PCP Medication - no further hematuria- states was caused by a cholesterol medication that he is no longer on 5. Hyperlipidemia 6. Chronic alcoholism in remission - quit for 5 years, now only a few weekly 7. Chronic post-traumatic stress disorder- on proazosin 2 mg nightly. sees MH here. discussed I culd take over RX if pateint requests 8. Anaphylactic reaction 9. Hypertension- renewed amlodipine. his outside PCP refills benzapril === HEALTH MAINTENANCE === Colonoscopy - due 2024- outside primary care orders- [place] lung Ca screening 12/2023 Abdominal Aortic Aneurysm Screening (due at age 65 if smoker/prev smoker) - Prostate screening - Tetanus: due every 10 years Pneumonia Vacccine: Flu Vaccine: due yearly Covid Vaccine: due yearly === FOLLOW UP === f/u in 6 mo with labs VISIT TYPE: a MODERATE complexity visit where 30 - 45 minutes was spent in direct patient care, review of records and documentation. Upcoming Appointments: 03/09/2024 14:00 CWM/NO/[facility] 03/16/2024 14:00 CWM/NO/[facility] 03/26/2024 09:00 CWM/NO/[facility] 03/30/2024 14:00 CWM/NO/[facility] 04/06/2024 14:00 CWM/NO/[facility] 07/16/2024 07:15 CWM/NO/DENTAL/RDH2 AM /es/ YANETH JOE D.O. PHYSICIAN Signed: 03/09/2024 10:19 YANETH JOE [facility] [place] [facility] March 09, 2024 09:04 AM PREVENTIVE MEDICIN E NURSING NOTE: LOCAL TITLE: CLINICAL REMINDERS/NURSING STANDARD TITLE: PREVENTIVE MEDICINE NURSING NOTE DATE OF NOTE: MARCH 09, 2024@09:04 ENTRY DATE: MARCH 09, 2024@09:04:25 AUTHOR: TAE WOODS EXP COSIGNER: URGENCY: STATUS: COMPLETED Advance Directive Screen MH AD: Patient has an Advance Directive on file at this [facility]. No updates are needed at this time. The patient received education about Advance Directives and written notification of his/her rights. Suicide Screen: C-SSRS Screening [place] Suicide Severity Rating Scale (C-SSRS) screener 1. Over the past month, have you wished you were or wished you could go to sleep and not wake up? No 2. Over the past month, have you had any actual thoughts of killing yourself? No 3. Over the past month, have you been thinking about how you might do this? Response not required due to responses to other questions. 4. Over the past month, have you had these thoughts and had some intention of acting on them? Response not required due to responses to other questions. 5. Over the past month, have you started to work out or worked out the details of how to kill yourself? Response not required due to responses to other questions. 6. If yes, at any time in the past month did you intend to carry out this plan? Response not required due to responses to other questions. 7. In your lifetime, have you ever done anything, started to do anything, or prepared to do anything to end your life (for example, collected pills, obtained a gun, gave away valuables, went to the roof but didn't jump)? No 8. If YES, was this within the past 3 months? Response not required due to responses to other questions. Avg Risk Colorectal Cancer Screen: AVERAGE RISK colorectal cancer screening is due based on information available to this clinical reminder CRC screen completed elsewhere and waiting for results. Results expected: Colonoscopy Comment: done in [facility] within past two years, faxed sent to obtain resluts Tobacco Use Screening: The patient is a former tobacco user. The patient quit fifteen or more years ago. Alcohol Use Screen (AUDIT-C): Alcohol Screen: SCREEN FOR ALCOHOL (AUDIT-C) An alcohol screening test (AUDIT-C) was negative (score=3). 1. How often did you have a drink containing alcohol in the past year? Consider a drink to be a 12 ounce can or bottle of regular beer, 8 ounces of malt liquor, a 5 ounce glass of table wine, or a 1.5 ounce shot of liquor (like scotch, gin, or vodka). Two to three times per week 2. How many drinks containing alcohol did you have on a typical day when you were drinking in the past year? One or two drinks 3. How often did you have six or more drinks on one occasion in the past year? Never /es/ TAE WOODS LPN License Practical Nurse Signed: 03/09/2024 09:06 TAE WOODS [place] [facility]
--- OUTSIDE RECORDS SUMMARY | 2024-11-02 06:40 | XMS_ITS | Encounter Summary ---
Author Name [facility] [place] Organization [place] Address [address] [place] [id number] Care Team Providers Care Blockmason Name Role Phone YANETH JOE Primary Care [...] Policy 's Name Patient's Relationship to Policy [facility] (WNR) MEDICARE ADVANTAGE [facility] (WNR) Oct 28, 2019 [id number] IVANA CAM JONAS PATIENT Selected Encounter This section includes the information on record at [place] for the Encounter. Date/Time Encounter Type Encounter Description Reason Provider Source Jun 01, 2024 02:00 PM [facility] ICD-10-CM F43.10 Post-traumatic stress disorder, unspecified MARK,ZEUS IE IHE Encounter Template Text not used by [place] Assessments - Encounter Diagnoses This section includes the primary and secondary diagnoses documented for the Encounter. Date/Time Primary/Secondary Diagnosis Diagnosis Name Provider Source Jun 01, 2024 04:25 PM PRIMARY Post-traumatic stress disorder, unspecified [facility] Plan of Treatment: Future Appointments [...] 20 appointments. The data comes from all [place] treatment facilities. Appointment Date/Time Appointment Type Appointme nt Facility Name Jun 08, 2024 02:00 PM AMBUL[facility] [place] [facility] Jun 15, 2024 02:00 PM AMBULATORY [facility] [place] [facility] Jun 22, 2024 02:00 PM AMBULATORY [facility]ATRY [facility] [place] [facility] Jul 13, 2024 02:00 PM AMBULATORY [facility]IATRY [facility] [place] [facility] Jul 13, 2024 02:30 PM AMBULATORY - REHAB MEDICIN E [facility] [place] [facility] Jul 16, 2024 07:15 AM AMBULATORY - NONE [facility] [place] [facility] Jul 20, 2024 02:00 PM AMBULATORY [facility]ATRY [facility] [place] [facility] Jul 27, 2024 02:00 PM AMBULATORY [facility]IATRY [facility] [place] [facility] Aug 03, 2024 02:00 PM AMBULATORY [facility] PS[facility]RY [facility] [place] [facility] Aug 24, 2024 02:00 PM AMBULATORY [facility] PS[facility]IATRY [facility] [place] [facility] Aug 31, 2024 02:00 PM AMBULATORY - PS[facility]CHIATRY [facility] [place] [facility] Sep 08, 2024 08:00 AM AMBULATORY - MEDICINE [facility] [place] [facility] Sep 08, 2024 09:00 AM AMBUL[facility]ORY [facility] PS[facility]IATRY [facility] [place] [facility] Sep 14, 2024 02:00 PM AMBULATORY [facility] PS[facility]RY [facility] [place] [facility] Sep 21, 2024 02:00 PM AMBULATORY [facility] PS[facility]IATRY [facility] [place] [facility] Oct 05, 2024 02:00 PM AMBULATORY [facility] PS[facility]IATRY [facility] [place] [facility] Oct 12, 2024 02:00 PM AMBULATORY [facility] PS[facility]IATRY [facility] [place] [facility] Oct 19, 2024 02:00 PM AMBULATORY - PSYCHIATRY [place] [facility] [place] [facility] Oct 27, 2024 11:45 AM AMBULATORY - PSYCHIATRY [place] [facility] [place] [facility] Nov 02, 2024 02:00 PM AMBULATORY - PSYCHIATRY [place] [facility] [place] [facility] Social History: Smoking Status (Most current) and Tobacco Use (All prior to encounter date) This section includes the most current, and the historical, smoking and tobacco- related health factors from the [place] facility where the Encounter took place. Current Smoking Status This section includes the most current smoking, or tobacco-related health factor, from the [place] facility where the Encounter took place. Date/Time Current Smoking Status Comment Facil it March 09, 2024 09:00 AM VA-TOBACCO QUIT 15 YRS OR MORE [facility] [place] [facility] Tobacco Use History This section includes a history of the smoking, or tobacco-related health factors, that were collected on or before the date of the Encounter. The data comes from the [place] facility where the Encounter took place. Date/Time Smoking Status/Tobac co Use Comment Facility March 09, 2024 09:00 AM VA-TOBACCO QUIT 15 YRS OR MORE [facility] [place] [facility] March 18, 2023 02:30 PM VA-TOBACCO FORMER USER [facility] [place] [facility] March 18, 2023 02:30 PM VA-TOBACCO QUIT 15 YRS OR MORE [facility] [place] [facility] Jan 11, 2022 08:30 AM VA-TOBACCO FORMER USER [facility] [place] [facility] Jan 11, 2022 08:30 AM VA-TOBACCO QUIT 15 YRS OR MORE [facility] [place] [facility] Dec 26, 2020 09:00 AM VA-TOBACCO FORMER USER [facility] [place] [facility] Dec 26, 2020 09:00 AM VA-TOBACCO QUIT 15 YRS OR MORE [facility] [place] [facility] Dec 08, 2019 09:16 AM VA-TOBACCO FORMER USER [facility] [place] [facility] Dec 08, 2019 09:16 AM VA-TOBACCO QUIT 15 YRS OR MORE [facility] [place] [facility] Oct 14, 2018 02:56 PM VA-TOBACCO FORMER USER [facility] Oct 14, 2018 02:56 PM DE-TOBACCO QUIT 15 YRS OR MORE [facility] Dec 12, 2017 09:20 AM QUIT TOBACCO USE > 7 YEARS AGO quit > 30 yrs ( 2-3 pks a day) [facility] Advance Directives: All historical and current Section Date Range: From patient's date of to the date document was created. This section includes ALL of a patient's completed or amended [place] Advance and Rescinded Directives. The entries below indicate that a directive exists for the patient, but an actual copy is not included with this document. The data comes from all [place] facilities. Date Advance Directives Provider Source Feb 09, 2019 ADVANCE DIRECTIVE VAN MORENO [facility] Feb 08, 2019 ADVANCE DIRECTIVE SAMM BRINK V [facility] Encounter Notes: All associated encounter notes This section contains the clinical notes associated to the Encounter. Date/Time Encounter Note(s) Provider Source Jun 01, 2024 02:00 PM SOCIAL WORK GROUP COUNSELING NOTE: LOCAL TITLE: SOCIAL WORK GROUP NOTE STANDARD TITLE: SOCIAL WORK GROUP COUNSELING NOTE DATE OF NOTE: JUN 01, 2024@14:00 ENTRY DATE: JUN 01, 2024@16:14:52 AUTHOR: MANDY FLORES COSIGNER: URGENCY: STATUS: COMPLETED This was a 60-minute supportive psychotherapy group for [place] Veterans with PTSD. 9 members were present today. Topics discussed today included: - more information exchange regarding changes in the ID and how to get a new one. Challenges and successes were discussed. - health issues of various members and their loved ones. - recent activities of daily living. - concerns regarding confidentiality in their health records. This pertained in particular to concerns regarding licenses to carry or government bodies knowing about their PHI. - legal records and sealing/unsealing and the potential impacts. - support regarding one member's housing issue. Members provided one another support and feedback. Next group will be 06/08/2024 [place] reported he was doing well with no new problems or concerns. /gio/ MANDY FLORES [facility] CLINICAL STONEWORKING BELT SANDER Signed: 06/01/2024 16:26 MANDY FLORES [facility]
--- OUTSIDE RECORDS SUMMARY | 2024-11-02 06:40 | XMS_ITS | Encounter Summary ---
Author Name Department [place] Organization [place] Address [address] [place] [address] Care Team Providers Care Flight Attendant/Inflight Manager Name Role Phone YANETH JOE Primary Care [...] Policy 's Name Patient's Relationship to Policy [facility] (WNR) MEDICARE ADVANTAGE [facility] (R) Oct 28, 2019 [id number] IVANA CAM JONAS PATIENT Selected Encounter This section includes the information on record at [place] for the Encounter. Date/Time Encounter Type Encounter Description Reason Provider Source March 09, 2024 02:00 PM GROUP PS[facility]CH[facility]AP[facility] ICD-10-CM F43.10 Post-traumatic stress disorder, unspecified MARK,ZEUS IE IHE Encounter Template Text not used by [place] Assessments - Encounter Diagnoses This section includes the primary and secondary diagnoses documented for the Encounter. Date/Time Primary/Secondary Diagnosis Diagnosis Name Provider Source March 10, 2024 08:37 AM PRIMARY Post-traumatic stress disorder, unspecified MARK,JAQUELIN E [facility] Plan of Treatment: Future Appointments (+ 6 months) and Future Tests (+/- 45 days) The Plan of Treatment section includes future care activities for the [facility] This section includes future appointments and future orders which are active, pending or scheduled. Future Appointments This section includes appointments that were scheduled to occur 6 months from the date of the Encounter, up to a maximum of 20 appointments. The data comes from all [place] treatment facilities. Appointment Date/Time Appointment Type Appointme nt Facility Name March 16, 2024 02:00 PM AMBULATORY [facility] [place] [facility] March 26, 2024 09:00 AM AMBULATORY - PS[facility]CHIATRY [facility] [place] [facility] Mar 30, 2024 02:00 PM AMBULATORY - PS[facility]CHIATRY [facility] [place] [facility] Apr 06, 2024 02:00 PM AMBULATORY - PS[facility]CHIATRY [facility] [place] [facility] May 04, 2024 02:00 PM AMBULATORY - PS[facility]CHIATRY [facility] [place] [facility] May 11, 2024 02:00 PM AMBULATORY - PS[facility]CHIATRY [facility] [place] [facility] May 18, 2024 02:00 PM AMBULATORY - PS[facility]CHIATRY [facility] [place] [facility] Jun 01, 2024 02:00 PM AMBULATORY - PS[facility]CHIATRY [facility] [place] [facility] Jun 08, 2024 02:00 PM AMBULATORY - PS[facility]CHIATRY [facility] [place] [facility] Jun 15, 2024 02:00 PM AMBULATORY - PSYCHIATRY [facility] [place] [facility] Jun 22, 2024 02:00 PM AMBULATORY - PSYCHIATRY [facility] [place] [facility] Jul 13, 2024 02:00 PM AMBULATORY - PSYCHIATRY [facility] [place] [facility] Jul 13, 2024 02:30 PM AMBULATORY - REHAB MEDICIN E [facility] [place] [facility] Jul 16, 2024 07:15 AM AMBULATORY - NONE [facility] [place] [facility] Jul 20, 2024 02:00 PM AMBULATORY - PSYCHIATRY [facility] [place] [facility] Jul 27, 2024 02:00 PM AMBULATORY - PSYCHIATRY [facility] [place] [facility] Aug 03, 2024 02:00 PM AMBULATORY - PSYCHIATRY [facility] [place] [facility] Aug 24, 2024 02:00 PM AMBULATORY - PSYCHIATRY [facility] Aug 31, 2024 02:00 PM AMBULATORY - PSYCHIATRY [facility] Sep 08, 2024 08:00 AM AM[facility]ULATORY - MEDICINE [facility] Lab Results: +/- 30 days of the encounter This section includes the Chemistry and Hematology Lab Results on record with NH for the patient. Radiology Reports and Pathology Reports are provided separately, in subsequent sections. Lab Results This section contains the Chemistry/Hematology Results that were resulted 30 days before or 30 daysafter the date of the Encounter. Date/Time Source Result Type Result - Unit Interpretation Reference Range Comment March 03, 2024 07:46 AM [facility] LIPID PANEL, NON FASTING Specimen Type: SERUM No comment entered. Ordering Provider: YANETH JOE Report Released Date/Time: February 28, 2024 10:29 AM Reporting Lab: [facility] [address] [id number] Performing Lab: [facility] [address] [facility] [address] CHOLESTEROL 190 mg/dL TRIGLYCERIDE 68 mg/dL 0-150 LDL calculated 102 mg/dL 0-129 CHOL/HDL 2.6 HDL CHOLESTEROL 74 mg/dL H 40-60 March 03, 2024 07:46 AM [facility] BASIC METABOLIC PANEL (non-fasting) Specimen Type: SERUM No comment entered. Ordering Provider: YANETH JOE Report Released Date/Time: February 28, 2024 10:29 AM Reporting Lab: [facility] [address] [address] Performing Lab: [address] [address] UREA NITROGEN 20 mg/dL 7-25 GLUCOSE 105 [...] 64 130/79 16 98 0 181 25 [place] [facility] [place] [facility] Social History: Smoking Status (Most current) and Tobacco Use (All prior to encounter date) This section includes the most current, and the historical, smoking and tobacco- related health factors from the [place] facility where the Encounter took place. Current Smoking Status This section includes the most current smoking, or tobacco-related health factor, from the [place] facility where the Encounter took place. Date/Time Current Smoking Status Comment Facil it March 09, 2024 09:00 AM VA-TOBACCO FORMER USER [place] [facility] [place] [facility] Tobacco Use History This section includes a history of the smoking, or tobacco-related health factors, that were collected on or before the date of the Encounter. The data comes from the [place] facility where the Encounter took place. Date/Time Smoking Status/Tobac co Use Comment Facility March 09, 2024 09:00 AM VA-TOBACCO QUIT 15 YRS OR MORE [place] [facility] [place] [facility] March 18, 2023 02:30 PM VA-TOBACCO FORMER USER [facility] [place] [facility] March 18, 2023 02:30 PM VA-TOBACCO QUIT 15 YRS OR MORE [facility] [place] [facility] Jan 11, 2022 08:30 AM VA-TOBACCO FORMER USER [facility] [place] [facility] Jan 11, 2022 08:30 AM VA-TOBACCO QUIT 15 YRS OR MORE [facility] [place] [facility] Dec 26, 2020 09:00 AM VA-TOBACCO FORMER USER [facility] [place] [facility] Dec 26, 2020 09:00 AM VA-TOBACCO QUIT 15 YRS OR MORE [facility] [place] [facility] Dec 08, 2019 09:16 AM VA-TOBACCO FORMER USER [facility] [place] [facility] Dec 08, 2019 09:16 AM VA-TOBACCO QUIT 15 YRS OR MORE [facility] [place] [facility] Oct 14, 2018 02:56 PM [facility] Oct 14, 2018 02:56 PM VA-TOBACCO QUIT 15 YRS OR MORE [facility] Dec 12, 2017 09:20 AM QUIT TOBACCO USE > 7 YEARS AGO quit > 30 yrs ( 2-3 pks a day) [facility] Advance Directives: All historical and current Section Date Range: From patient's date of to the date document was created. This section includes ALL of a patient's completed or amended [place] Advance and Rescinded Directives. The entries below indicate that a directive exists for the patient, but an actual copy is not included with this document. The data comes from all [place] facilities. Date Advance Directives Provider Source Feb 09, 2019 ADVANCE DIRECTIVE TIFFANIEISATUTrevor Dow [facility] Feb 08, 2019 ADVANCE DIRECTIVE SAMM BRINK V [facility] Encounter Notes: All associated encounter notes This section contains the clinical notes associated to the Encounter. Date/Time Encounter Note(s) Provider Source March 09, 2024 02:00 PM SOCIAL WORK GROUP COUNSELING NOTE: LOCAL TITLE: SOCIAL WORK GROUP NOTE STANDARD TITLE: SOCIAL WORK GROUP COUNSELING NOTE DATE OF NOTE: MARCH 09, 2024@14:00 ENTRY DATE: MARCH 10, 2024@08:11:03 AUTHOR: MANDY FLORES COSIGNER: URGENCY: STATUS: COMPLETED This was a 60-minute supportive psychotherapy group for [place] Veterans with PTSD. 9 members were present today. Topics discussed today included: - social and recreational activities that members engage in that help support them. They also discussed the 100 year anniversary of the local [place]. They talked about ways they wished events were more advertised. - problems they experience or see with health care in the [place], including coordination between doctors, and a shortage of doctors. One member recalled as a child the doctors making house calls and how different things are now. - health issues of various members and their loved ones. Members provided one another support and feedback. Next group will be 03/16/2024 reported he was doing well. He talked about a recent medical appointment. /gio/ MANDY FLORES [facility] CLINICAL BUSINESS MAIL ENTRY CLERK Signed: 03/10/2024 08:38 MANDY FLORES [facility]
--- OUTSIDE RECORDS SUMMARY | 2024-11-02 06:40 | XMS_ITS | Encounter Summary ---
Author Name Department of Veter[place] Affairs [place] Organization Department of [place] Address [address] [place] [id number] Care Team Providers Care Foreign Languages Department Chair Name Role Phone YANETH JOE Primary Care [...] Name Patient's Relationship to Policy [facility] (WNR) MEDICARE ADVANTAGE [facility] (R) Oct 28, 2019 [id number] IVANA CAM JONAS PATIENT Selected Encounter This section includes the information on record at OR for the Encounter. Date/Time Encounter Type Encounter Description Reason Provider Source Feb 24, 2024 02:00 PM [facility]AP[facility] ICD-10-CM F43.10 Post-traumatic stress disorder, unspecified MARK,ZEUS IE IHE Encounter Template Text not used by [place] Assessments - Encounter Diagnoses This section includes the primary and secondary diagnoses documented for the Encounter. Date/Time Primary/Secondary Diagnosis Diagnosis Name Provider Source Feb 24, 2024 03:15 PM PRIMARY Post-traumatic stress disorder, unspecified [facility] Plan of Treatment: Future Appointments (+ 6 months) and Future Tests (+/- 45 days) The Plan of Treatment section includes future care activities for the patient from all [facility]. This section includes future appointments and future orders which are active, pending or scheduled. Future Appointments This section includes appointments that were scheduled to occur 6 months from the date of the Encounter, up to a maximum of 20 appointments. The data comes from all [place] treatment facilities. Appointment Date/Time Appointment Type Appointme nt Facility Name March 09, 2024 09:00 AM AMBULATORY - MEDICINE [facility] [place] [facility] March 09, 2024 02:00 PM AMBULATORY - PSYCHIATRY [facility] [place] [facility] March 16, 2024 02:00 PM AMBULATORY - PSYCHIATRY [facility] [place] [facility] March 26, 2024 09:00 AM AMBULATORY - PSYCHIATRY [facility] [place] [facility] Mar 30, 2024 02:00 PM AMBULATORY - PSYCHIATRY [facility] [place] [facility] Apr 06, 2024 02:00 PM AMBULATORY - PSYCHIATRY [facility] [place] [facility] May 04, 2024 02:00 PM AMBULATORY - PSYCHIATRY [facility] [place] [facility] May 11, 2024 02:00 PM AMBULATORY - PSYCHIATRY [facility] [place] [facility] May 18, 2024 02:00 PM AMBULATORY - PSYCHIATRY [facility] [place] [facility] Jun 01, 2024 02:00 PM AMBULATORY - PSYCHIATRY [facility] [place] [facility] Jun 08, 2024 02:00 PM AMBULATORY - PSYCHIATRY [facility] [place] [facility] Jun 15, 2024 02:00 PM AMBULATORY - PSYCHIATRY [facility] [place] [facility] Jun 22, 2024 02:00 PM AMBULATORY - PSYCHIATRY [facility] [place] [facility] Jul 13, 2024 02:00 PM AMBULATORY - PSYCHIATRY [facility] [place] [facility] Jul 13, 2024 02:30 PM AMBULATORY - REHAB MEDICIN E [facility] [place] [facility] Jul 16, 2024 07:15 AM AMBULATORY - NONE [facility] [place] [facility] Jul 20, 2024 02:00 PM AMBULATORY - PSYCHIATRY [facility] [place] [facility] Jul 27, 2024 02:00 PM AMBULATORY - PSYCHIATRY [facility] Aug 03, 2024 02:00 PM AMBULATORY - PSYCHIATRY [facility] Aug 24, 2024 02:00 PM AMBULATORY - PSYCHIATRY [facility] Lab Results: +/- 30 days of the encounter This section includes the Chemistry and Hematology Lab Results on record with [place] for the patient. Radiology Reports and Pathology Reports are provided separately, in subsequent sections. Lab Results This section contains the Chemistry/Hematology Results that were resulted 30 days before or 30 daysafter the date of the Encounter. Date/Time Source Result Type Result - Unit Interpretation Reference Range Comment March 03, 2024 07:46 AM [facility] LIPID PANEL, NON FASTING Specimen Type: SERUM No comment entered. Ordering Provider: YANETH JOE Report Released Date/Time: February 28, 2024 10:29 AM Reporting Lab: [facility] [address] [facility] [id number] Performing Lab: [facility] [address] [address] CHOLESTEROL 190 mg/dL TRIGLYCERIDE 68 mg/dL 0-150 LDL calculated 102 mg/dL 0-129 CHOL/HDL 2.6 HDL CHOLESTEROL 74 mg/dL H 40-60 March 03, 2024 07:46 AM [facility] BASIC METABOLIC PANEL (non-fasting) Specimen Type: SERUM No comment entered. Ordering Provider: YANETH JOE Report Released Date/Time: February 28, 2024 10:29 AM Reporting Lab: [facility] [address] [facility] [address] Performing Lab: [facility] [address] [address] UREA NITROGEN 20 mg/dL 7-25 GLUCOSE 105 [...] and tobacco- related health factors from the [place] facility where the Encounter took place. Current Smoking Status This section includes the most current smoking, or tobacco-related health factor, from the [place] facility where the Encounter took place. Date/Time Current Smoking Status Comment Facil it March 18, 2023 02:30 PM VA-TOBACCO QUIT 15 YRS OR MORE [place] [facility] [place] [facility] Tobacco Use History This section includes a history of the smoking, or tobacco-related health factors, that were collected on or before the date of the Encounter. The data comes from the [place] facility where the Encounter took place. Date/Time Smoking Status/Tobac co Use Comment Facility March 18, 2023 02:30 PM VA-TOBACCO QUIT 15 YRS OR MORE [place] [facility] [place] [facility] Jan 11, 2022 08:30 AM VA-TOBACCO FORMER USER [facility] [place] [facility] Jan 11, 2022 08:30 AM VA-TOBACCO QUIT 15 YRS OR MORE [facility] [place] [facility] Dec 26, 2020 09:00 AM VA-TOBACCO FORMER USER [facility] [place] [facility] Dec 26, 2020 09:00 AM VA-TOBACCO QUIT 15 YRS OR MORE [facility] [place] [facility] Dec 08, 2019 09:16 AM VA-TOBACCO FORMER USER [facility] [place] [facility] Dec 08, 2019 09:16 AM VA-TOBACCO QUIT 15 YRS OR MORE [facility] [place] [facility] Oct 14, 2018 02:56 PM VA-TOBACCO FORMER USER [facility] [place] [facility] Oct 14, 2018 02:56 PM VA-TOBACCO QUIT 15 YRS OR MORE [facility] [place] [facility] Dec 12, 2017 09:20 AM QUIT TOBACCO USE > 7 YEARS AGO quit > 30 yrs ( 2-3 pks a day) [place] [facility] [place] [facility] Advance Directives: All historical and current Section Date Range: From patient's date of to the date document was created. This section includes ALL of a patient's completed or amended VA Advance and Rescinded Directives. The entries below indicate that a directive exists for the patient, but an actual copy is not included with this document. The data comes from all [place] facilities. Date Advance Directives Provider Source Feb 09, 2019 ADVANCE DIRECTIVE VAN MORENO [facility] Feb 08, 2019 ADVANCE DIRECTIVE SAMM BRINK V A [facility] Encounter Notes: All associated encounter notes This section contains the clinical notes associated to the Encounter. Date/Time Encounter Note(s) Provider Source Feb 24, 2024 02:00 PM SOCIAL WORK GROUP COUNSELING NOTE: LOCAL TITLE: SOCIAL WORK GROUP NOTE STANDARD TITLE: SOCIAL WORK GROUP COUNSELING NOTE DATE OF NOTE: FEB 24, 2024@14:00 ENTRY DATE: FEB 24, 2024@15:06:23 AUTHOR: MANDY FLORES COSIGNER: URGENCY: STATUS: COMPLETED This was a 60-minute supportive psychotherapy group for [place] Veterans with PTSD. 9 members were present today. Topics discussed today included: - how the pre-group lunch gathering went for members. They spoke of it positively, and shared topics that were discussed. Positive group cohesion was identified. - taking care of loved ones with dementia or declining health and/or memory. Challenges were discussed, particularly around getting needed services and being able to talk to providers. - health issues of various members and their loved ones. Members provided one another support and feedback. Next group will be 03/02/2024 Delight shared the challenges he had faced trying to communicate and coordinate care for his sister who has dementia with her providers. /gio/ MANDY FLORES [facility] CLINICAL SENIOR PRODUCT MANAGER Signed: 02/24/2024 15:16 MANDY FLORES [facility]
--- OUTSIDE RECORDS SUMMARY | 2024-11-02 06:40 | XMS_ITS | Encounter Summary ---
Author Name [place] Organization [place] Address [address] [place] [id number] Care Team Providers Care Hat Finisher Name Role Phone YANETH JOE Primary Care [...] Patient's Relationship to Policy [facility] (WNR) MEDICARE ADVANTAGE [facility] (WNR) Oct 28, 2019 [id number] IVANA CAM JONAS PATIENT Selected Encounter This section includes the information on record at [place] for the Encounter. Date/Time Encounter Type Encounter Description Reason Provider Source May 18, 2024 02:00 PM GROUP PSYCHOTHERAPY [facility] ICD-10-CM F43.10 Post-traumatic stress disorder, unspecified MARK,ZEUS IE IHE Encounter Template Text not used by [place] Assessments - Encounter Diagnoses This section includes the primary and secondary diagnoses documented for the Encounter. Date/Time Primary/Secondary Diagnosis Diagnosis Name Provider Source May 18, 2024 04:19 PM PRIMARY Post-traumatic stress disorder, unspecified MARK,JAQUELIN E [facility] Plan of Treatment: Future Appointments (+ 6 months) and Future Tests (+/- 45 days) The Plan of Treatment section includes future care activities for the patient from all [facility]. This section includes future appointments and future orders which are active, pending or scheduled. Future Appointments This section includes appointments that were scheduled to occur 6 months from the date of the Encounter, up to a maximum of 20 appointments. The data comes from all [place] treatment facilities. Appointment Date/Time Appointment Type Appointme nt Facility Name Jun 01, 2024 02:00 PM AMBULATORY - PSYCHIATRY [facility] [place] [facility] Jun 08, 2024 02:00 PM [...] 12, 2024 02:00 PM AMBULATORY - PSYCHIATRY [place] [facility] [place] [facility] Oct 19, 2024 02:00 PM AMBULATORY - PSYCHIATRY [place] [facility] [place] [facility] Oct 27, 2024 11:45 AM AMBULATORY - PSYCHIATRY [place] [facility] [place] [facility] [...] 09, 2024 09:00 AM VA-TOBACCO FORMER USER [place] [facility] [place] [facility] [...] PM VA-TOBACCO QUIT 15 YRS OR MORE [facility] Dec 12, 2017 09:20 AM QUIT TOBACCO USE > 7 YEARS AGO quit > 30 yrs ( 2-3 pks a day) [facility] Advance Directives: All historical and current [...] Feb 09, 2019 ADVANCE DIRECTIVE VAN MORENO [facility] Feb 08, 2019 ADVANCE DIRECTIVE SAMM BRINK V [facility] Encounter Notes: All associated encounter notes This section contains the clinical notes associated to the Encounter. Date/Time Encounter Note(s) Provider Source May 18, 2024 02:00 PM SOCIAL WORK GROUP COUNSELING NOTE: LOCAL TITLE: SOCIAL WORK GROUP NOTE STANDARD TITLE: SOCIAL WORK GROUP COUNSELING NOTE DATE OF NOTE: MAY 18, 2024@14:00 ENTRY DATE: MAY 18, 2024@16:12:35 AUTHOR: MANDY FLORES COSIGNER: URGENCY: STATUS: COMPLETED This was a 60-minute supportive psychotherapy group for [place] Veterans with PTSD. 11 members were present today. Topics discussed today included: - more information exchange regarding changes in the ID and how to get a new one. They discussed how they can get airplane rides to places with their ID. - health issues of various members and their loved ones. - recent activities of daily living such as social events, vacations and family gatherings. - grief and loss. - support regarding one member's housing issue. Members provided one another support and feedback. Next group will be 05/25/2024 reported he was doing well with no new problems or concerns. He was attentive and participatory. /gio/ MANDY FLORES [facility] NURSE Signed: 05/18/2024 16:20 MANDY FLORES [facility] HCS
--- OUTSIDE RECORDS SUMMARY | 2024-11-02 06:40 | XMS_ITS ---
Author Name Department [place] Organization [place] Address [address] [place] [id number] Care Team Providers Care Mica Inspector Name Role Phone YANETH JOE Primary Care [...] Policy 's Name Patient's Relationship to Policy [facility] (WNR) MEDICARE ADVANTAGE [facility] (WNR) Oct 28, 2019 [id number] 09 IVANA CAM JONAS PATIENT Selected Encounter This section includes the information on record at [place] for the Encounter. Date/Time Encounter Type Encounter Description Reason Provider Source Mar 30, 2024 02:00 PM GROUP PSYCHOTHERAPY [facility] ICD-10-CM F43.10 Post-traumatic stress disorder, unspecified MARK,ZEUS IE IHE Encounter Template Text not used by [place] Assessments - Encounter Diagnoses This section includes the primary and secondary diagnoses documented for the Encounter. Date/Time Primary/Secondary Diagnosis Diagnosis Name Provider Source Mar 30, 2024 04:17 PM PRIMARY Post-traumatic stress disorder, unspecified MARK,JAQUELIN E [facility] Plan of Treatment: Future Appointments (+ 6 months) and Future Tests (+/- 45 days) The Plan of Treatment section includes future care activities for the patient from all [facility]. This section includes future appointments and future orders which are active, pending or scheduled. Future Appointments This section includes appointments that were scheduled to occur 6 months from the date of the Encounter, up to a maximum of 20 appointments. The data comes from all [place] treatment facilities. Appointment Date/Time Appointment Type Appointme nt Facility Name Apr 06, 2024 02:00 PM AMBULATORY - PSYCHIATRY [facility] [place] [facility] May 04, 2024 02:00 PM AMBULATORY - PSYCHIATRY [facility] [place] [facility] May 11, 2024 02:00 PM AMBULATORY - PSYCHIATRY [facility] [place] [facility] May 18, 2024 02:00 PM AMBULATORY - PSYCHIATRY [facility] [place] [facility] Jun 01, 2024 02:00 PM AMBULATORY - PSYCHIATRY [facility] [place] [facility] Jun 08, 2024 02:00 PM AMBULATORY - PSYCHIATRY [facility] [place] [facility] Jun 15, 2024 02:00 PM AMBULATORY - PSYCHIATRY [facility] [place] [facility] Jun 22, 2024 02:00 PM AMBULATORY - PSYCHIATRY [facility] [place] [facility] Jul 13, 2024 02:00 PM AMBULATORY - PSYCHIATRY [facility] [place] [facility] Jul 13, 2024 02:30 PM AMBULATORY - REHAB MEDICIN E [facility] [place] [facility] Jul 16, 2024 07:15 AM AMBULATORY - NONE [facility] [place] [facility] Jul 20, 2024 02:00 PM AMBULATORY - PSYCHIATRY [facility] [place] [facility] Jul 27, 2024 02:00 PM AMBULATORY - PSYCHIATRY [facility] [place] [facility] Aug 03, 2024 02:00 PM AMBULATORY - PSYCHIATRY [facility] [place] [facility] Aug 24, 2024 02:00 PM AMBULATORY - PSYCHIATRY [facility] [place] [facility] Aug 31, 2024 02:00 PM AMBULATORY - PSYCHIATRY [facility] [place] [facility] Sep 08, 2024 08:00 AM AMBULATORY - MEDICINE [facility] [place] [facility] Sep 08, 2024 09:00 AM AMBULATORY - PSYCHIATRY [facility] Sep 14, 2024 02:00 PM AMBULATORY - PSYCHIATRY [facility] Sep 21, 2024 02:00 PM AMBULATORY - PSYCHIATRY [facility] Lab Results: +/- 30 days of [...] Range Comment March 03, 2024 07:46 AM [facility] LIPID PANEL, NON FASTING Specimen Type: SERUM No comment entered. Ordering Provider: YANETH JOE Report Released Date/Time: February 28, 2024 10:29 AM Reporting Lab: [facility] [address] [facility] [address] Performing Lab: [facility] [address] [facility] [address] CHOLESTEROL 190 mg/dL TRIGLYCERIDE 68 mg/dL 0-150 LDL calculated 102 mg/dL 0-129 CHOL/HDL 2.6 HDL CHOLESTEROL 74 mg/dL H 40-60 March 03, 2024 07:46 AM [facility] BASIC METABOLIC PANEL (non-fasting) Specimen Type: SERUM No comment entered. Ordering Provider: YANETH JOE Report Released Date/Time: February 28, 2024 10:29 AM Reporting Lab: [facility] [address] [facility] [address] Performing Lab: [address] [address] UREA NITROGEN 20 mg/dL 7-25 GLUCOSE 105 [...] 09, 2024 09:00 AM VA-TOBACCO FORMER USER [place] [facility] [place] [facility] Tobacco Use History This section includes a history of the smoking, or tobacco-related health factors, that were collected on or before the date of the Encounter. The data comes from the [place] facility where the Encounter took place. Date/Time Smoking Status/Tobac co Use Comment Facility March 09, 2024 09:00 AM VA-TOBACCO QUIT 15 YRS OR MORE [facility] [place] [facility] March 18, 2023 02:30 PM VA-TOBACCO FORMER USER [facility] [place] [facility] March 18, 2023 02:30 PM VA-TOBACCO QUIT 15 YRS OR MORE [facility] [place] [facility] Jan 11, 2022 08:30 AM VA-TOBACCO FORMER USER [facility] [place] [facility] Jan 11, 2022 08:30 AM VA-TOBACCO QUIT 15 YRS OR MORE [facility] [place] [facility] Dec 26, 2020 09:00 AM VA-TOBACCO FORMER USER [facility] [place] [facility] Dec 26, 2020 09:00 AM VA-TOBACCO QUIT 15 YRS OR MORE [facility] [place] [facility] Dec 08, 2019 09:16 AM VA-TOBACCO FORMER USER [facility] [place] [facility] Dec 08, 2019 09:16 AM VA-TOBACCO QUIT 15 YRS OR MORE [facility] [place] [facility] Oct 14, 2018 02:56 PM VA-TOBACCO FORMER USER [facility] [place] [facility] Oct 14, 2018 02:56 PM VA-TOBACCO QUIT 15 YRS OR MORE [facility] [place] [facility] Dec 12, 2017 09:20 AM QUIT TOBACCO USE > 7 YEARS AGO quit > 30 yrs ( 2-3 pks a day) [facility] [place] [facility] Advance Directives: All historical and current Section Date Range: From patient's date of to the date document was created. This section includes ALL of a patient's completed or amended [place] Advance and Rescinded Directives. The entries below indicate that a directive exists for the patient, but an actual copy is not included with this document. The data comes from all [place] facilities. Date Advance Directives Provider Source Feb 09, 2019 ADVANCE DIRECTIVE VAN MORENO [facility] Feb 08, 2019 ADVANCE DIRECTIVE SAMM BRINK V A [facility] Encounter Notes: All associated encounter notes This section contains the clinical notes associated to the Encounter. Date/Time Encounter Note(s) Provider Source Mar 30, 2024 02:00 PM SOCIAL WORK GROUP COUNSELING NOTE: LOCAL TITLE: SOCIAL WORK GROUP NOTE STANDARD TITLE: SOCIAL WORK GROUP COUNSELING NOTE DATE OF NOTE: MAR 30, 2024@14:00 ENTRY DATE: MAR 30, 2024@16:11:16 AUTHOR: MANDY FLORES EXP COSIGNER: URGENCY: STATUS: COMPLETED This was a 60-minute supportive psychotherapy group for [place] Veterans with PTSD. 10 members were present today. Topics discussed today included: - social and recreational activities that members engage in that help support them. Examples include local festivals, or time with family, as well as summer specific activities. - health issues of various members and their loved ones. - coming to terms with aging and needing to ask for help. Members provided one another support and feedback. Next group will be 04/06/2024 shared he was doing well. He was attentive and participatory with new problems or concerns reported. /gio/ MANDY FLORES [facility] CLINICAL APPLIED RESEARCH DIRECTOR Signed: 03/30/2024 16:18 MANDY FLORES [facility]
--- OUTSIDE RECORDS SUMMARY | 2024-11-02 06:40 | XMS_ITS ---
Author Name [place] Address [address] [place] [address] Care Team Providers Care Manager Of Employee Relations Name Role Phone YANETH JOE Primary Care [...] Policy 's Name Patient's Relationship to Policy [facility] (WNR) MEDICARE ADVANTAGE [facility] (WNR) Oct 28, 2019 [id number] IVANA CAM JONAS PATIENT Selected Encounter This section includes the information on record at [place] for the Encounter. Date/Time Encounter Type Encounter Description Reason Provider Source Apr 06, 2024 02:00 PM GROUP PS[facility]CHOTHERAPY [facility] ICD-10-CM F43.10 Post-traumatic stress disorder, unspecified MARK,ZEUS IE IHE Encounter Template Text not used by [place] Assessments - Encounter Diagnoses This section includes the primary and secondary diagnoses documented for the Encounter. Date/Time Primary/Secondary Diagnosis Diagnosis Name Provider Source Apr 06, 2024 04:19 PM PRIMARY Post-traumatic stress disorder, unspecified MARK,JAQUELIN E [facility] Plan of Treatment: Future Appointments (+ 6 months) and Future Tests (+/- 45 days) The Plan of Treatment section includes future care activities for the patient from [facility]. This section includes future appointments and future orders which are active, pending or scheduled. Future Appointments This section includes appointments that were scheduled to occur 6 months from the date of the Encounter, up to a maximum of 20 appointments. The data comes from all [place] treatment facilities. Appointment Date/Time Appointment Type Appointme nt Facility Name May 04, 2024 02:00 PM [facility]BULATORY [facility] [place] [facility] May 11, 2024 02:00 PM AMBULATORY [facility] PS[facility]IATRY [facility] [place] [facility] May 18, 2024 02:00 PM AMBULATORY [facility] PS[facility]CHIATRY [facility] [place] [facility] Jun 01, 2024 02:00 PM AMBULATORY [facility] PS[facility]CHIATRY [facility] [place] [facility] Jun 08, 2024 02:00 PM AMBULATORY [facility] PS[facility]CHIATRY [facility] [place] [facility] Jun 15, 2024 02:00 PM AMBULATORY [facility] PS[facility]CHIATRY [facility] [place] [facility] Jun 22, 2024 02:00 PM AMBULATORY - PS[facility]CHIATRY [facility] [place] [facility] Jul 13, 2024 02:00 PM AMBULATORY - PS[facility]CHIATRY [facility] [place] [facility] Jul 13, 2024 02:30 PM AMBULATORY - REHAB MEDICIN E [facility] [place] [facility] Jul 16, 2024 07:15 AM AMBULATORY - NONE [facility] [place] [facility] Jul 20, 2024 02:00 PM AMBULATORY [facility] PS[facility]CHIATRY [facility] [place] [facility] Jul 27, 2024 02:00 PM AMBULATORY - PS[facility]CHIATRY [facility] [place] [facility] Aug 03, 2024 02:00 PM AMBULATORY - PS[facility]CHIATRY [facility] [place] [facility] Aug 24, 2024 02:00 PM AMBULATORY [facility] PS[facility]CHIATRY [facility] [place] [facility] Aug 31, 2024 02:00 PM AMBULATORY [facility] PS[facility]CHIATRY [facility] [place] [facility] Sep 08, 2024 08:00 AM AMBULATORY - MEDICINE [facility] [place] [facility] Sep 08, 2024 09:00 AM AMBULATORY - PSYCHIATRY [facility] [place] [facility] Sep 14, 2024 02:00 PM AMBUL[place]ORY [place]RY [place] [facility] [place] [facility] Sep 21, 2024 02:00 PM AMBUL[place]ORY [place]ATRY [place] [facility] [place] [facility] Oct 05, 2024 02:00 PM AMBULATORY [place]RY [place] [facility] [place] [facility] Social History: Smoking Status (Most current) and Tobacco Use (All prior to encounter date) This section includes the most current, and the historical, smoking and tobacco- related health factors from the [place] facility where the Encounter took place. Current Smoking Status This section includes the most current smoking, or tobacco-related health factor, from the [place] facility where the Encounter took place. Date/Time Current Smoking Status Comment Facil it March 09, 2024 09:00 AM VA-TOBACCO FORMER USER [place] [facility] [place] [facility] Tobacco Use History This section includes a history of the smoking, or tobacco-related health factors, that were collected on or before the date of the Encounter. The data comes from the [place] facility where the Encounter took place. Date/Time Smoking Status/Tobac co Use Comment Facility March 09, 2024 09:00 AM VA-TOBACCO QUIT 15 YRS OR MORE [facility] [place] [facility] March 18, 2023 02:30 PM VA-TOBACCO FORMER USER [facility] [place] [facility] March 18, 2023 02:30 PM VA-TOBACCO QUIT 15 YRS OR MORE [facility] [place] [facility] Jan 11, 2022 08:30 AM VA-TOBACCO FORMER USER [facility] [place] [facility] Jan 11, 2022 08:30 AM VA-TOBACCO QUIT 15 YRS OR MORE [facility] [place] [facility] Dec 26, 2020 09:00 AM VA-TOBACCO FORMER USER [facility] [place] [facility] Dec 26, 2020 09:00 AM VA-TOBACCO QUIT 15 YRS OR MORE [facility] [place] [facility] Dec 08, 2019 09:16 AM VA-TOBACCO FORMER USER [facility] [place] [facility] Dec 08, 2019 09:16 AM VA-TOBACCO QUIT 15 YRS OR MORE [facility] [place] [facility] Oct 14, 2018 02:56 PM VA-TOBACCO FORMER USER [facility] [place] [facility] Oct 14, 2018 02:56 PM VA-TOBACCO QUIT 15 YRS OR MORE [facility] Dec 12, 2017 09:20 AM QUIT TOBACCO USE > 7 YEARS AGO quit > 30 yrs ( 2-3 pks a day) [facility] Advance Directives: All historical and current Section Date Range: From patient's date of to the date document was created. This section includes ALL of a patient's completed or amended [place] Advance and Rescinded Directives. The entries below indicate that a directive exists for the patient, but an actual copy is not included with this document. The data comes from all [place] facilities. Date Advance Directives Provider Source Feb 09, 2019 ADVANCE DIRECTIVE VAN MORENO [facility] Feb 08, 2019 ADVANCE DIRECTIVE SAMM BRINK [facility] Encounter Notes: All associated encounter notes This section contains the clinical notes associated to the Encounter. Date/Time Encounter Note(s) Provider Source Apr 06, 2024 02:00 PM SOCIAL WORK GROUP COUNSELING NOTE: LOCAL TITLE: SOCIAL WORK GROUP NOTE STANDARD TITLE: SOCIAL WORK GROUP COUNSELING NOTE DATE OF NOTE: APR 06, 2024@14:00 ENTRY DATE: APR 06, 2024@16:07:33 AUTHOR: MANDY FLORES COSIGNER: URGENCY: STATUS: COMPLETED This was a 60-minute supportive psychotherapy group for [place] Veterans with PTSD. 7 members were present today. Topics discussed today included: - significant losses, such as children or spouses, as well as anniversary dates (i.e. ). Grief and how to deal with it was discussed. - health issues of various members and their loved ones. Diabetes was discussed, as well as healthy eating and dieting. Members shared their own experiences with this. Members provided one another support and feedback. - accessing mental health care in a crisis. Next group will be 05/04/2024 was attentive and participatory with no new problems or concerns. /gio/ MANDY FLORES [facility] CLINICAL CARBON SEQUESTRATION PLANT ENGINEER Signed: 04/06/2024 16:21 MANDY FLORES [facility]
--- OUTSIDE RECORDS SUMMARY | 2024-11-02 06:40 | XMS_ITS ---
Author Name [place] Address [address] [place] [address] Care Team Providers Care Chief Embalmer Name Role Phone YANETH JOE Primary Care [...] Policy 's Name Patient's Relationship to Policy [facility] (WNR) MEDICARE ADVANTAGE [facility] (WNR) Oct 28, 2019 [id number] IVANA CAM PATIENT Selected Encounter This section includes the information on record at [place] for the Encounter. Date/Time Encounter Type Encounter Description Reason Pro vider Source May 25, 2024 02:00 PM Outpatient Encounter [facility] Encounter Template Text not used by [place] [...] AMBULATORY - [facility]IATRY [facility] [place] [facility] Jun 08, 2024 02:00 PM AMBULATORY - PS[facility]CHIATRY [facility] [place] [facility] Jun 15, 2024 02:00 PM AMBULATORY - PSYCHIATRY [facility] [place] [facility] Jun 22, 2024 02:00 PM AMBULATORY - PS[facility]CHIATRY [facility] [place] [facility] Jul 13, 2024 02:00 PM AMBULATORY - PS[facility]CHIATRY [facility] [place] [facility] Jul 13, 2024 02:30 PM AMBULATORY - REHAB MEDICIN E [facility] [place] [facility] Jul 16, 2024 07:15 AM AMBULATORY - NONE [facility] [place] [facility] Jul 20, 2024 02:00 PM AMBULATORY - PS[facility]CHIATRY [facility] [place] [facility] Jul 27, 2024 02:00 PM AMBULATORY - PSYCHIATRY [facility] [place] [facility] Aug 03, 2024 02:00 PM AMBULATORY - PSYCHIATRY [facility] [place] [facility] Aug 24, 2024 02:00 PM AMBULATORY - PSYCHIATRY [facility] [place] [facility] Aug 31, 2024 02:00 PM AMBULATORY - PSYCHIATRY [facility] [place] [facility] Sep 08, 2024 08:00 AM AMBULATORY - MEDICINE [facility] [place] [facility] Sep 08, 2024 09:00 AM AMBULATORY - PSYCHIATRY [facility] [place] [facility] Sep 14, 2024 02:00 PM AMBULATORY - PSYCHIATRY [facility] [place] [facility] Sep 21, 2024 02:00 PM AMBULATORY - PS[facility]CHIATRY [facility] [place] [facility] Oct 05, 2024 02:00 PM AMBULATORY - PSYCHIATRY [facility] [place] [facility] Oct 12, 2024 02:00 PM AMBULATORY - PSYCHIATRY [facility] [place] [facility] Oct 19, 2024 02:00 PM AMBULATORY - PSYCHIATRY [facility] [place] [facility] Oct 27, 2024 11:45 AM AMBULATORY - PSYCHIATRY [facility] [place] [facility] Social History: Smoking Status (Most current) [...] 09, 2024 09:00 AM VA-TOBACCO FORMER USER [place] [facility] [place] [facility] Tobacco Use History This section includes a history of the smoking, or tobacco-related health factors, that were collected on or before the date of the Encounter. The data comes from the [place] facility where the Encounter took place. Date/Time Smoking Status/Tobac co Use Comment Facility March 09, 2024 09:00 AM VA-TOBACCO QUIT 15 YRS OR MORE [facility] [place] [facility] March 18, 2023 02:30 PM VA-TOBACCO FORMER USER [facility] [place] [facility] March 18, 2023 02:30 PM VA-TOBACCO QUIT 15 YRS OR MORE [place] [facility] [place] [facility] Jan 11, 2022 08:30 AM VA-TOBACCO FORMER USER [facility] [place] [facility] Jan 11, 2022 08:30 AM VA-TOBACCO QUIT 15 YRS OR MORE [facility] [place] [facility] Dec 26, 2020 09:00 AM VA-TOBACCO FORMER USER [facility] [place] [facility] Dec 26, 2020 09:00 AM VA-TOBACCO QUIT 15 YRS OR MORE [facility] [place] [facility] Dec 08, 2019 09:16 AM VA-TOBACCO FORMER USER [facility] [place] [facility] Dec 08, 2019 09:16 AM VA-TOBACCO QUIT 15 YRS OR MORE [facility] [place] [facility] Oct 14, 2018 02:56 PM VA-TOBACCO FORMER USER [facility] [place] [facility] Oct 14, 2018 02:56 PM VA-TOBACCO QUIT 15 YRS OR MORE [facility] [place] [facility] Dec 12, 2017 09:20 AM QUIT TOBACCO USE > 7 YEARS AGO quit > 30 yrs ( 2-3 pks a day) [facility] [place] [facility] Advance Directives: All historical and current Section Date Range: From patient's date of to the date document was created. This section includes ALL of a patient's completed or amended [place] Advance and Rescinded Directives. The entries below indicate that a directive exists for the patient, but an actual copy is not included with this document. The data comes from all [place] facilities. Date Advance Directives Provider Source Feb 09, 2019 ADVANCE DIRECTIVE VAN MORENO [facility] Feb 08, 2019 ADVANCE DIRECTIVE SAMM BRINK [facility] Encounter Notes: All associated encounter notes This section contains the clinical notes associated to the Encounter. Date/Time Encounter Note(s) Provider Source May 25, 2024 09:30 AM ADMINISTRATIVE NOTE: LOCAL TITLE: ADMINISTRATIVE NOTE STANDARD TITLE: ADMINISTRATIVE NOTE DATE OF NOTE: MAY 25, 2024@09:30 ENTRY DATE: MAY 25, 2024@09:30:41 AUTHOR: LORIE BYERS EXP COSIGNER: URGENCY: STATUS: COMPLETED AMSA spoke with who is aware that provider is out today, no group. /gio/ LORIE BYERS ADVANCED EPIDEMIOLOGIST Signed: 05/25/2024 09:32 LORIE BYERS [facility]
--- OUTSIDE RECORDS SUMMARY | 2024-11-02 06:40 | XMS_ITS | Encounter Summary ---
Author Name [place] Address [address] [place] [address] Care Team Providers Care Supervisor Nurse Name Role Phone YANETH JOE Primary Care [...] Policy 's Name Patient's Relationship to Policy [facility] (WNR) MEDICARE ADVANTAGE [facility] (R) Oct 28, 2019 [id number] IVANA CAM JONAS PATIENT Selected Encounter This section includes the information on record at [place] for the Encounter. Date/Time Encounter Type Encounter Description Reason Provider Source Feb 17, 2024 02:00 PM GROUP PSYCHOTHERAPY [facility] ICD-10-CM F43.10 Post-traumatic stress disorder, unspecified MARK,ZEUS IE IHE Encounter Template Text not used by [place] Assessments - Encounter Diagnoses This section includes the primary and secondary diagnoses documented for the Encounter. Date/Time Primary/Secondary Diagnosis Diagnosis Name Provider Source Feb 17, 2024 04:19 PM PRIMARY Post-traumatic stress disorder, unspecified MARK,JAQUELIN E [facility] Plan of Treatment: Future Appointments (+ 6 [...] 20 appointments. The data comes from all [place] treatment facilities. Appointment Date/Time Appointment Type Appointme nt Facility Name Feb 24, 2024 02:00 PM AMBULATORY - PS[facility]CHIATRY [facility] [place] [facility] March 09, 2024 09:00 AM AMBULATORY - MEDICINE [facility] [place] [facility] March 09, 2024 02:00 PM AMBULATORY - PSYCHIATRY [facility] [place] [facility] March 16, 2024 02:00 PM AMBULATORY - PSYCHIATRY [facility] [place] [facility] March 26, 2024 09:00 AM AMBULATORY - PSYCHIATRY [facility] [place] [facility] Mar 30, 2024 02:00 PM AMBULATORY - PSYCHIATRY [facility] [place] [facility] Apr 06, 2024 02:00 PM AMBULATORY - PSYCHIATRY [facility] [place] [facility] May 04, 2024 02:00 PM AMBULATORY - PSYCHIATRY [facility] [place] [facility] May 11, 2024 02:00 PM AMBULATORY - PSYCHIATRY [facility] [place] [facility] May 18, 2024 02:00 PM AMBULATORY - PSYCHIATRY [facility] [place] [facility] Jun 01, 2024 02:00 PM AMBULATORY - PSYCHIATRY [facility] [place] [facility] Jun 08, 2024 02:00 PM AMBULATORY - PSYCHIATRY [facility] [place] [facility] Jun 15, 2024 02:00 PM AMBULATORY - PSYCHIATRY [facility] [place] [facility] Jun 22, 2024 02:00 PM AMBULATORY - PSYCHIATRY [facility] [place] [facility] Jul 13, 2024 02:00 PM AMBULATORY - PSYCHIATRY [facility] [place] [facility] Jul 13, 2024 02:30 PM AMBULATORY - REHAB MEDICIN E [facility] [place] [facility] Jul 16, 2024 07:15 AM AMBULATORY - NONE [facility] [place] [facility] Jul 20, 2024 02:00 PM AMBULATORY - PSYCHIATRY [facility] Jul 27, 2024 02:00 PM AMBULATORY - PSYCHIATRY [facility] Aug 03, 2024 02:00 PM AMBULATORY - PSYCHIATRY [facility] Lab Results: +/- 30 days of the encounter This section includes the Chemistry and Hematology Lab Results on record with [place] for the patient. Radiology Reports and Pathology Reports are provided separately, in subsequent sections. Lab Results This section contains the Chemistry/Hematology Results that were resulted 30 days before or 30 daysafter the date of the Encounter. Date/Time Source Result Type Result - Unit Interpretation Reference Range Comment March 03, 2024 07:46 AM [facility] LIPID PANEL, NON FASTING Specimen Type: SERUM No comment entered. Ordering Provider: YANETH JOE Report Released Date/Time: February 28, 2024 10:29 AM Reporting Lab: [facility] [address] [id number] Performing Lab: [facility] [address] [facility] [address] CHOLESTEROL 190 mg/dL TRIGLYCERIDE 68 mg/dL 0-150 LDL calculated 102 mg/dL 0-129 CHOL/HDL 2.6 HDL CHOLESTEROL 74 mg/dL H 40-60 March 03, 2024 07:46 AM [facility] BASIC METABOLIC PANEL (non-fasting) Specimen Type: SERUM No comment entered. Ordering Provider: YANETH JOE Report Released Date/Time: February 28, 2024 10:29 AM Reporting Lab: [facility] [address] [id number] Performing Lab: [facility] [address] [address] UREA NITROGEN 20 mg/dL 7-25 GLUCOSE 105 [...] and tobacco- related health factors from the [place] facility where the Encounter took place. Current Smoking Status This section includes the most current smoking, or tobacco-related health factor, from the [place] facility where the Encounter took place. Date/Time Current Smoking Status Comment Facil it March 18, 2023 02:30 PM VA-TOBACCO FORMER USER [place] [facility] [place] [facility] Tobacco Use History This section includes a history of the smoking, or tobacco-related health factors, that were collected on or before the date of the Encounter. The data comes from the [place] facility where the Encounter took place. Date/Time Smoking Status/Tobac co Use Comment Facility March 18, 2023 02:30 PM VA-TOBACCO QUIT 15 YRS OR MORE [place] [facility] [place] [facility] Jan 11, 2022 08:30 AM VA-TOBACCO FORMER USER [facility] [place] [facility] Jan 11, 2022 08:30 AM VA-TOBACCO QUIT 15 YRS OR MORE [facility] [place] [facility] Dec 26, 2020 09:00 AM VA-TOBACCO FORMER USER [place] [facility] [place] [facility] Dec 26, 2020 09:00 AM VA-TOBACCO QUIT 15 YRS OR MORE [place] [facility] [place] [facility] Dec 08, 2019 09:16 AM VA-TOBACCO FORMER USER [place] [facility] [place] [facility] Dec 08, 2019 09:16 AM VA-TOBACCO QUIT 15 YRS OR MORE [facility] [place] [facility] Oct 14, 2018 02:56 PM VA-TOBACCO FORMER USER [facility] [place] [facility] Oct 14, 2018 02:56 PM VA-TOBACCO QUIT 15 YRS OR MORE [place] [facility] [place] [facility] Dec 12, 2017 09:20 AM QUIT TOBACCO USE > 7 YEARS AGO quit > 30 yrs ( 2-3 pks a day) [place] [facility] [place] [facility] Advance Directives: All historical and current Section Date Range: From patient's date of to the date document was created. This section includes ALL of a patient's completed or amended [place] Advance and Rescinded Directives. The entries below indicate that a directive exists for the patient, but an actual copy is not included with this document. The data comes from all [place] facilities. Date Advance Directives Provider Source Feb 09, 2019 ADVANCE DIRECTIVE VAN MORENO [facility] Feb 08, 2019 ADVANCE DIRECTIVE SAMM BRINK [facility] Encounter Notes: All associated encounter notes This section contains the clinical notes associated to the Encounter. Date/Time Encounter Note(s) Provider Source Feb 17, 2024 02:00 PM SOCIAL WORK GROUP COUNSELING NOTE: LOCAL TITLE: SOCIAL WORK GROUP NOTE STANDARD TITLE: SOCIAL WORK GROUP COUNSELING NOTE DATE OF NOTE: FEB 17, 2024@14:00 ENTRY DATE: FEB 17, 2024@16:12:22 AUTHOR: MANDY FLORES COSIGNER: URGENCY: STATUS: COMPLETED This was a 60-minute supportive psychotherapy group for [place] Veterans with PTSD. 10 members were present today. Topics discussed today included: - aging and dealing with physical limitations. Members continued to discuss ways they have had to give up doing some of the things they used to do. Other members talked about falls or recent injuries, and the medical care and follow up they have received. - health issues of various members and their loved ones. - activities of daily living, including contact with family, volunteer work, and upcoming trips. Members provided one another support and feedback. Next group will be 02/24/2024 [place] reported he was doing well. He continues to do his morning walks and talked about the importance of this for him. /gio/ MANDY FLORES [facility] CLINICAL TRIMMING PRESS OPERATOR Signed: 02/17/2024 16:20 MANDY FLORES [facility]
--- OUTSIDE RECORDS SUMMARY | 2024-11-02 06:40 | XMS_ITS ---
Author Name [facility] [place] [facility] [place] Address [address] [place] [address] Care Team Providers Care Psychological Operations Specialist Name Role Phone YANETH JOE Primary Care [...] Policy 's Name Patient's Relationship to Policy [facility] MEDICARE ADVANTAGE [facility]) Oct 28, 2019 [id number] IVANA CAM PATIENT Selected Encounter This section includes the information on record at [place] for the Encounter. Date/Time Encounter Type Encounter Description Reason Provider Source March 26, 2024 09:00 AM PSYTX W PT W E/M 30 [facility] - IND ICD-10-CM F10.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, in remission MARIO WIGGINS Ayah Encounter Template Text not used by [place] Assessments - Encounter Diagnoses This section includes the primary and secondary diagnoses documented for the Encounter. Date/Time Primary/Secondary Diagnosis Diagnosis Name Provider Source March 26, 2024 10:10 PM PRIMARY Alcohol dependence, in remission [facility] March 26, 2024 10:10 PM SECONDARY Contact with and exposure to other hazardous substances [facility] WIGGINS [facility] [place] [facility] March 26, 2024 10:10 PM SECONDARY Post-traumatic stress disorder, chronic MARIO WIGGINS [place] [facility] [place] [facility] Plan of Treatment: Future Appointments (+ 6 months) and Future Tests (+/- 45 days) The Plan of Treatment section includes future care activities for the patient [facility] [place] [facility] This section includes future appointments and future orders which are active, pending or scheduled. Future Appointments This section includes appointments that were scheduled to occur 6 months from the date of the Encounter, up to a maximum of 20 appointments. The data comes from all [place] treatment facilities. Appointment Date/Time Appointment Type Appointme nt Facility Name Mar 30, 2024 02:00 PM AMBULATORY - PSYCHIATRY [facility] [place] [facility] Apr 06, 2024 02:00 PM AMBULATORY - PSYCHIATRY [facility] [place] [facility] May 04, 2024 02:00 PM AMBULATORY - PSYCHIATRY [facility] [place] [facility] May 11, 2024 02:00 PM AMBULATORY - PSYCHIATRY [facility] [place] [facility] May 18, 2024 02:00 PM AMBULATORY - PSYCHIATRY [facility] [place] [facility] Jun 01, 2024 02:00 PM AMBULATORY - PSYCHIATRY [facility] [place] [facility] Jun 08, 2024 02:00 PM AMBULATORY - PSYCHIATRY [facility] [place] [facility] Jun 15, 2024 02:00 PM AMBULATORY - PSYCHIATRY [facility] [place] [facility] Jun 22, 2024 02:00 PM AMBULATORY - PSYCHIATRY [facility] [place] [facility] Jul 13, 2024 02:00 PM AMBULATORY - PSYCHIATRY [facility] [place] [facility] Jul 13, 2024 02:30 PM AMBULATORY - REHAB MEDICIN E [facility] [place] [facility] Jul 16, 2024 07:15 AM AMBULATORY - NONE [facility] [place] [facility] Jul 20, 2024 02:00 PM AMBULATORY - PSYCHIATRY [facility] [place] [facility] Jul 27, 2024 02:00 PM AMBULATORY - PSYCHIATRY [facility] [place] [facility] Aug 03, 2024 02:00 PM AMBULATORY - PSYCHIATRY [facility] [place] [facility] Aug 24, 2024 02:00 PM AMBULATORY - PSYCHIATRY [facility] [place] [facility] Aug 31, 2024 02:00 PM AMBULATORY - PSYCHIATRY [facility] [place] [facility] Sep 08, 2024 08:00 AM AMBULATORY - MEDICINE [place] [facility] [place] [facility] Sep 08, 2024 09:00 AM AMBULATORY - PSYCHIATRY [place] [facility] [place] [facility] Sep 14, 2024 02:00 PM AMBULATORY - PSYCHIATRY [place] [facility] [place] [facility] Lab Results: +/- 30 days of the encounter This section includes the Chemistry and Hematology Lab Results on record with [facility] for the patient. Radiology Reports and Pathology Reports are provided separately, in subsequent sections. Lab Results This section contains the Chemistry/Hematology Results that were resulted 30 days before or 30 daysafter the date of the Encounter. Date/Time Source Result Type Result - Unit Interpretation Reference Range Comment March 03, 2024 07:46 [facility] LIPID PANEL, NON FASTING Specimen Type: SERUM No comment entered. Ordering Provider: YANETH JOE Report Released Date/Time: February 28, 2024 10:29 AM Reporting [facility] [address] [facility] [facility] [phone] Performing Lab: [facility] [address] [facility] [phone] CHOLESTEROL 190 mg/dL TRIGLYCERIDE 68 mg/dL 0-150 LDL calculated 102 mg/dL 0-129 CHOL/HDL 2.6 HDL CHOLESTEROL 74 mg/dL H 40-60 March 03, 2024 07:46 AM [facility] BASIC METABOLIC PANEL (non-fasting) Specimen Type: SERUM No comment entered. Ordering Provider: YANETH JOE Report Released Date/Time: February 28, 2024 10:29 AM Reporting [facility] [address] [facility] [phone] Performing [facility]: [facility] [address] [facility] [address] UREA NITROGEN 20 mg/dL 7-25 GLUCOSE 105 [...] and tobacco- related health factors from the [place] facility where the Encounter took place. Current Smoking Status This section includes the most current smoking, or tobacco-related health factor, from the [place] facility where the Encounter took place. Date/Time Current Smoking Status Comment [facility] it March 09, 2024 09:00 AM VA-TOBACCO FORMER USER [place] [facility] [place] [facility] Tobacco Use History This section includes a history of the smoking, or tobacco-related health factors, that were collected on or before the date of the Encounter. The data comes from the [place] facility where the Encounter took place. Date/Time Smoking Status/Tobac co Use Comment Facility March 09, 2024 09:00 AM VA-TOBACCO QUIT 15 YRS OR MORE [place] [facility] [place] [facility] March 18, 2023 02:30 PM VA-TOBACCO FORMER USER [facility] [place] [facility] March 18, 2023 02:30 PM VA-TOBACCO QUIT 15 YRS OR MORE [facility] [place] [facility] Jan 11, 2022 08:30 AM VA-TOBACCO FORMER USER [facility] [place] [facility] Jan 11, 2022 08:30 AM VA-TOBACCO QUIT 15 YRS OR MORE [facility] [place] [facility] Dec 26, 2020 09:00 AM VA-TOBACCO FORMER USER [facility] [place] [facility] Dec 26, 2020 09:00 AM VA-TOBACCO QUIT 15 YRS OR MORE [facility] [place] [facility] Dec 08, 2019 09:16 AM VA-TOBACCO FORMER USER [facility] [place] [facility] Dec 08, 2019 09:16 AM VA-TOBACCO QUIT 15 YRS OR MORE [facility] [place] [facility] Oct 14, 2018 02:56 PM [place]-TOBACCO [facility] Oct 14, 2018 02:56 PM VA-TOBACCO QUIT 15 YRS OR MORE [facility] Dec 12, 2017 09:20 AM QUIT TOBACCO USE > 7 YEARS AGO quit > 30 yrs ( 2-3 pks a day) [facility] Advance Directives: All historical and current Section Date Range: From patient's date of to the date document was created. This section includes ALL of a patient's completed or amended [place] Advance and Rescinded Directives. The entries below indicate that a directive exists for the patient, but an actual copy is not included with this document. The data comes from all [place] facilities. Date Advance Directives Provider Source Feb 09, 2019 ADVANCE DIRECTIVE VAN MORENO [facility] Feb 08, 2019 ADVANCE DIRECTIVE SAMM BRINK [facility] Encounter Notes: All associated encounter notes This section contains the clinical notes associated to the Encounter. Date/Time Encounter Note(s) Provider Source March 26, 2024 08:52 AM CLINICAL NURSE SPECIALIST NOTE: LOCAL TITLE: CLINICAL NURSE SPECIALIST/MENTAL HEALTH STANDARD TITLE: CLINICAL NURSE SPECIALIST NOTE DATE OF NOTE: MARCH 26, 2024@08:52 ENTRY DATE: MARCH 26, 2024@08:52:19 AUTHOR: TONI WIGGINS EXP COSIGNER: URGENCY: STATUS: COMPLETED CLINICAL NURSE SPECIALIST/MENTAL HEALTH Has ADDENDA HIGINIO CAM JR, a 73year old BLACK OR MALE was seen for scheduled follow-up at [facility] for Dx: PTSD, ION by history He is known to journalists and other writers and visit was for 30 minutes. Active problems - Computerized Problem List is the source for the followin. Incomplete bladder emptying 2. Adult screening status 3. Hyperlipidemia 4. Patient requires hospitalization 5. Chronic alcoholism in remission 6. Chronic post-traumatic stress disorder 7. Under care of multiple providers 8. Anaphylactic reaction 9. History of surgery 10. Hypertension 11. Trauma CHART REVIEW: is a patient of Dr. Patton and P[facility], he likes his PCP and states he feels that he gets good care at [place]. He is also seen by dental clinic and is a group member with ANSHU Chris for PTSD therapy. Continues weekly groups. PAST PSYCHIATRIC HISTORY: started treatment at the [facility] in 2008, he had a comprehensive exam [place] at the [place] in 2009 and began audiology treatment at [facility] then started mental health treatment for PTSD in 2018 with ANSHU Chris. He was treated by Dr. Radford over many years until that doctor retired. PAST MEDICATION TRIALS: Naltrexone STRENGTHS: conversant and intelligent :[employer] FROM Oct TO Sep SUBJECTIVE: The was seen today for routine follow up; visit lasted for 30 minutes. [place] reports doing fine, he and continue to get along well. No alcohol for over four years, not smoking for many years. No use of other drugs. When [place] totally stopped alcohol he found he could lose a good deal of weight, which made him happy. He is maintaining weight and healthy lifestyle and enjoys. Alan is doing well on current stabilizing med, denies side effects or other med issues and wants to continue current med regime. Alan relates that his 68 year old sister is now in a Assisted where she is safe. He visits almost daily but it bothers him about her memory and he reports some things that have occurred lately that worry him. Sister has ankle bracelet in case she wanders. She wants to come home but he has to say no which hurts him. CURRENT SYMPTOMS CAUSING CONCERN TO : sister's health CURRENT STRESSORS/LIFE CIRCUMSTANCES:no new issues REVIEW OF SYSTEMS: SLEEP: occasional impairment, sleeps better if he walks a lot, sleeps better knowing sister is safe. MOOD: no depressed mood reported PTSD: Nightmares, flashbacks, intrusive memories. avoidance: at times, not often. ANXIETY: moderate ANGER/IRRITABILITY/AGGRESS ION: none SUICIDAL MOOD/IDEAS: none SUBSTANCE USE: use of alcohol or illegal/non-prescribed drugs none TOBACCO: nonsmoker since . KATIE/HYPOMANIA: None. PSYCHOTIC FEATURES: None. ALCOHOL OR DRUG USE: never OVERALL CHANGE SINCE LAST VISIT:none DEGREE OF IMPAIRMENT OF DAILY FUNCTION: none MEDICATION RECONCILIATION: pt on no new/ non-VA prescribed medications or herbal treatments. Current meds: Active and Recently Outpatient Medications (excluding Supplies): Active Outpatient Medications Status == 1) PRAZOSIN HCL 2MG CAP TAKE ONE CAPSULE BY MOUTH AT BEDTIME Active Non-VA Medications Status == 1) Non-VA BENAZEPRIL HCL 20MG TAB 20MG BY MOUTH EVERY MORNING ACTIVE 2) Non-VA EPINEPHRINE (EQV-EPI PEN) 0.3ML/0.3ML INJ,SOLN INTRAMUSCULARLY ACTIVE 3) Non-VA FEXOFENADINE HCL 180MG TAB 180MG BY MOUTH ONCE DAILY ACTIVE 4) Atorvastatin 40mg one daily new med 12/11/22 5 Total Medications MEDICATION ADHERENCE: takes medications most days MEDICATION SIDE EFFECTS: none OBJECTIVE: recent labs:LAB RESULTS LAST RESULTS GLUCOSE: 105 H UREA NITROGEN: 20 SODIUM: 143 POTASSIUM: 4.6 CHLORIDE: 107 CO2: 26 CHOLESTEROL: 190 TRIGLYCERIDE: 68 LDL CHOL: 102 CHOL/HDL RATIO: 2.6 HDL: 74 H CREATININE-EGFR: 1.16 eGFR CKD-EPI 2020: 65 Weight: 181 down 5 lbs since last year MENTAL STATUS EXAM: Orientation and Consciousness: Alert and fully oriented. Appearance and Behavior: Well groomed. Casually and appropriately dressed. Has on white button down shirt and dark slacks, with dress shoes. Good hygiene. Pleasant. Cooperative. Eye Contact: Good. Speech: Normal rate and volume. Mood/Affect: Euthymic with a congruent affect. Thought Production/Content: Logical, sequential & relevant to discussion. Perceptual Disturbances: None. Attention, concentration and memory based on answers to session questions: Good. Insight/Judgment: Both good. Ability to Provide informed consent: Yes. ASSESSMENT: 73 year old BLACK OR MALE, presents today appearing clean, neat and well kempt. He is pleasant and appropriate, able to answer all questions and advocate for his needs. He states that he is happy to be free of alcohol for the past 4.5 years and his and he are doing well. He feels less stressed now with sister getting more care and he does not need to worry as much. [facility] [place] [facility], so she can stay in the Assisted. She has nice staff and residents per his report. He is assisting as much as he can. His stress is down a bit and he is again able to interact well today. We talked about the good memories that she has but cannot articulate of their lives together with family. She wants to go home with Vet and that indicates that she feels comfort from his visits, although it is difficult to say no also. Lia denies any side effects or other problems with current med and would like to continue 90 day refills. Denies any other issues today we considered his recent labs and reviewed appointments and he expressed understanding. We also reviewed patient education on meds, patient expresses understanding. Patient was reviewed on PACT team members and how to reach them. Lia has been walking daily and his cholesteral has come down a good deal. He recently had some high BP and started him on amlodipine and he is doing fine with that. He has been checking BP and the med is working well. (x)stable psychiatrically ()unstable psychiatrically i. Severity of Illness: ()none (x)mild ()moderately ill ()severely ill ()very severely ill ii. Global Improvement: ()very much (x)much ()min ()none ()min worse ()much worse ()very much worse iii. Current risk of harm: ()none (x)low () mod ()high TREATMENT PLAN/ DISCUSSION/ RATIONALE: 1. continue current medication, no indication for altering regimen. Sleeping and minimal nightmares, no side effects or dizziness in ams. Knows to sit, then stand slowly. Can take own BP and knows to use care with current med. 2. continue current therapy and he was also told about the [facility] in case he should have an urgent need. 3. Reviewed recent lab, current med with minimal metabolic effect. Reviewed med effect on BP and being careful with rising, he is aware. 4. Walking two miles daily for his health, wt down by 5lbs, doing well overall. Next Visit: in 4-5 months. However, I asked the patient to call me or to come to return for sooner appointment if the patient does not like the effect of psychiatric medication or if has side effects with psychiatric medication. LAB REVIEW: ()none/not applicable (x)discussed lab results, no change in plan, had labs in Jun, cholesterol with some elevation, ()discussed lab results, in particular: PATIENT EDUCATION/ INFORMED CONSENT:()not required, no new changes (x)Discussion was held with patient as to risks/ benefits/ hazards of this regimen, as well as alternatives available. The patient appeared able to understand this information and accepted the risks involved. CRISIS PLAN: The patient denied suicidal and violent ideation, but the Veterans Crisis Line information and number were given to patient. The patient also understands to call 911 or to go to ER in the event of an emergency. 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 Health/Medical Questions All patients who report a health/medical concern will receive follow-up from a clinician. For urgent or emergent concerns, they were advised to follow local facility policy. Contact information for local resources: Benefits/Claim for Disability Compensation Questions:National VBA [place] [facility] Enrollment: [facility] Eligibility direct dialed at [phone] Registry: [facility] Coordinator ext [phone] Toxic Exposure Screening Follow-Up reminder is needed. Name of person notified: toni wiggins /gio/ TONI WIGGINS RN,MSN,PSYCH N.P., STAFF CLINICAL NURSE SPECIALIST Signed: 03/26/2024 22:10 05/25/2024 ADDENDUM STATUS: COMPLETED Toxic Exposure Screening Follow-Up: Exposure Concern(s): 03/26/2024 Other Environmental Concerns - Toxic Exposure Concern served in [facility] and does know for sure about exposures 03/18/2023 Doesnt Know - Toxic Exposure Concern Follow-up Question(s): 03/26/2024 Health/Medical Questions - Toxic Exposure Concern 03/18/2023 No Questions - Toxic Exposure Concern declines further assistance at this time. /gio/ TONI WIGGINS RN,MSN,PSYCH N.P., STAFF CLINICAL NURSE SPECIALIST Signed: 05/25/2024 11:42 [facility]IGGINS [place] [facility]
--- OUTSIDE RECORDS SUMMARY | 2024-11-02 06:41 | XMS_ITS ---
Author Name [facility] [place] Organization [place] Address [address] [place] [id number] Care Team Providers Care Monitor And Storage Bin Tender Name Role Phone YANETH JOE Primary [...] [facility] (WNR) MEDICARE ADVANTAGE [facility] (WNR) Oct 28, 2019 [id number] TTUU,JE JONAS PATIENT Selected Encounter This section includes the information on record at [place] for the Encounter. Date/Time Encounter Type Encounter Description Reason Pro vider Source Jul 15, 2024 09:15 AM Outpatient Encounter DENTAL IHE Encounter Template Text not used by [place] Plan of Treatment: Future Appointments (+ 6 months) and Future Tests (+/- 45 days) The Plan of Treatment section includes future care activities for the patient from all [place] treatmentfacilities. This section includes future appointments and future orders which are active, pending or scheduled. Future Appointments This section includes appointments that were scheduled to occur 6 months from the date of the Encounter, up to a maximum of 20 appointments. The data comes from all [place] treatment facilities. Appointment Date/Time Appointment Type Appointme nt Facility Name Jul 16, 2024 07:15 AM [facility]ONE [facility] [place] [facility] Jul 20, 2024 02:00 PM [facility]IATRY [facility] [place] [facility] Jul 27, 2024 02:00 PM [facility]BULATORY [facility]RY [facility] [place] [facility] Aug 03, 2024 02:00 PM AMBULATORY [facility]ATRY [facility] [place] [facility] Aug 24, 2024 02:00 PM [facility]UL[facility]RY [facility] [place] [facility] Aug 31, 2024 02:00 PM AMBULATORY [facility] PS[facility]IATRY [facility] [place] [facility] Sep 08, 2024 08:00 AM [facility]ULATORY [facility]ICINE [facility] [place] [facility] Sep 08, 2024 09:00 AM AMBULATORY [facility] PS[facility]IATRY [facility] [place] [facility] Sep 14, 2024 02:00 PM AMBULATORY - PS[facility]IATRY [facility] [place] [facility] Sep 21, 2024 02:00 PM AMBULATORY - PS[facility]IATRY [facility] [place] [facility] Oct 05, 2024 02:00 PM AMBULATORY [facility] PS[facility]IATRY [facility] [place] [facility] Oct 12, 2024 02:00 PM AMBULATORY - PS[facility]CHIATRY [facility] [place] [facility] Oct 19, 2024 02:00 PM AMBULATORY - PS[facility]IATRY [facility] [place] [facility] Oct 27, 2024 11:45 AM AMBULATORY - PS[facility]IATRY [facility] [place] [facility] Nov 02, 2024 02:00 PM AMBULATORY - PS[facility]IATRY [facility] [place] [facility] Nov 23, 2024 02:00 PM AMBULATORY - PS[facility]CHIATRY [facility] [place] [facility] Dec 29, 2024 08:30 AM AMBULATORY - NONE [facility] [place] [facility] Jan 12, 2025 07:30 AM AMBULATORY - NONE [facility] [place] [facility] Social History: Smoking Status (Most current) and Tobacco Use (All prior to encounter date) This section includes the most current, and the historical, smoking and tobacco- related health factors from the VA facility where the Encounter took place. Current Smoking Status This section includes the most current smoking, or tobacco-related health factor, from the VA facility where the Encounter took place. Date/Time Current Smoking Status Comment [facility] it March 09, 2024 09:00 AM VA-TOBACCO FORMER USER [facility] [place] [facility] Tobacco Use History This section includes a history of the smoking, or tobacco-related health factors, that were collected on or before the date of the Encounter. The data comes from the [place] facility where the Encounter took place. Date/Time Smoking Status/Tobac co Use Comment Facility March 09, 2024 09:00 AM VA-TOBACCO QUIT 15 YRS OR MORE [facility] [place] [facility] March 18, 2023 02:30 PM VA-TOBACCO FORMER USER [place] [facility] [place] [facility] March 18, 2023 02:30 PM VA-TOBACCO QUIT 15 YRS OR MORE [facility] [place] [facility] Jan 11, 2022 08:30 AM VA-TOBACCO FORMER USER [facility] [place] [facility] Jan 11, 2022 08:30 AM VA-TOBACCO QUIT 15 YRS OR MORE [facility] [place] [facility] Dec 26, 2020 09:00 AM VA-TOBACCO FORMER USER [facility] [place] [facility] Dec 26, 2020 09:00 AM VA-TOBACCO QUIT 15 YRS OR MORE [facility] [place] [facility] Dec 08, 2019 09:16 AM VA-TOBACCO FORMER USER [facility] [place] [facility] Dec 08, 2019 09:16 AM VA-TOBACCO QUIT 15 YRS OR MORE [facility] [place] [facility] Oct 14, 2018 02:56 PM VA-TOBACCO FORMER USER [facility] [place] [facility] Oct 14, 2018 02:56 PM VA-TOBACCO QUIT 15 YRS OR MORE [facility] [place] [facility] Dec 12, 2017 09:20 AM QUIT TOBACCO USE > 7 YEARS AGO quit > 30 yrs ( 2-3 pks a day) [facility] [place] [facility] Advance Directives: All historical and [...] Source Feb 09, 2019 ADVANCE DIRECTIVE [facility] Feb 08, 2019 ADVANCE DIRECTIVE SAMM BRINK [facility] Encounter Notes: All associated encounter notes This section contains the clinical notes associated to the Encounter. Date/Time Encounter Note(s) Provider Source Jul 15, 2024 09:15 AM DENTISTRY TELEPHON E ENCOUNTER NOTE: LOCAL TITLE: TELEPHONE NOTE/DENTAL STANDARD TITLE: DENTISTRY TELEPHONE ENCOUNTER NOTE DATE OF NOTE: JUL 15, 2024@09:15 ENTRY DATE: JUL 15, 2024@09:15:55 AUTHOR: JOMAR DURHAM EXP COSIGNER: URGENCY: STATUS: COMPLETED Spoke with pt to confirm dental appointment on 07/16/2024 at 7:15 am. /gio/ JOMAR DURHAM [employer] ANALYST Signed: 07/15/2024 09:16 JOMAR DURHAM [facility]
--- OUTSIDE RECORDS SUMMARY | 2024-11-02 06:41 | XMS_ITS | Encounter Summary ---
Author Name [facility] [place] Organization [place] Address [address] [place] [id number] Care Team Providers Care Manager Call Name Role Phone YANETH JOE Primary Care [...] Policy 's Name Patient's Relationship to Policy [facility] (WNR) MEDICARE ADVANTAGE [facility] (WNR) Oct 28, 2019 [id number] TUTU,JE JONAS PATIENT Selected Encounter This section includes the information on record at [place] for the Encounter. Date/Time Encounter Type Encounter Description Reason Provider Source Jul 13, 2024 02:00 PM GROUP [facility]CH[facility]APY [facility] ICD-10-CM F43.10 Post-traumatic stress disorder, unspecified MARK,ZEUS IE IHE Encounter Template Text not used by [place] Assessments - Encounter Diagnoses This section includes the primary and secondary diagnoses documented for the Encounter. Date/Time Primary/Secondary Diagnosis Diagnosis Name Provider Source Jul 14, 2024 08:28 AM PRIMARY Post-traumatic stress disorder, unspecified MARK[facility] Plan of Treatment: Future Appointments [...] 20 appointments. The data comes from all [place] treatment facilities. Appointment Date/Time Appointment Type Appointme nt Facility Name Jul 16, 2024 07:15 AM AMBULATORY - NONE [facility] [place] [facility] Jul 20, 2024 02:00 PM AMBULATORY - PSYCHIATRY [facility] [place] [facility] Jul 27, 2024 02:00 PM AMBULATORY - PSYCHIATRY [facility] [place] [facility] Aug 03, 2024 02:00 PM AMBULATORY - PSYCHIATRY [facility] [place] [facility] Aug 24, 2024 02:00 PM AMBULATORY - PSYCHIATRY [facility] [place] [facility] Aug 31, 2024 02:00 PM AMBULATORY - PSYCHIATRY [facility] [place] [facility] Sep 08, 2024 08:00 AM AMBULATORY - MEDICINE [facility] [place] [facility] Sep 08, 2024 09:00 AM AMBULATORY - PS[facility]CHIATRY [facility] [place] [facility] Sep 14, 2024 02:00 PM AMBULATORY - PSYCHIATRY [facility] [place] [facility] Sep 21, 2024 02:00 PM AMBULATORY - PSYCHIATRY [facility] [place] [facility] Oct 05, 2024 02:00 PM AMBULATORY - PSYCHIATRY [facility] [place] [facility] Oct 12, 2024 02:00 PM AMBULATORY - PSYCHIATRY [facility] [place] [facility] Oct 19, 2024 02:00 PM AMBULATORY - PSYCHIATRY [facility] [place] [facility] Oct 27, 2024 11:45 AM AMBULATORY - PSYCHIATRY [facility] [place] [facility] Nov 02, 2024 02:00 PM AMBULATORY - PSYCHIATRY [facility] [place] [facility] Nov 23, 2024 02:00 PM AMBULATORY - PSYCHIATRY [facility] [place] [facility] Dec 29, 2024 08:30 AM AMBULATORY - NONE [facility] [place] [facility] Social History: Smoking Status (Most current) and Tobacco Use (All prior to encounter date) This section includes the most current, and the historical, smoking and tobacco- related health factors from the [place] facility where the Encounter took place. Current Smoking Status This section includes the most current smoking, or tobacco-related health factor, from the [place] facility where the Encounter took place. Date/Time Current Smoking Status Comment Facil it March 09, 2024 09:00 AM VA-TOBACCO FORMER USER [place] [facility] [place] [facility] Tobacco Use History This section includes a history of the smoking, or tobacco-related health factors, that were collected on or before the date of the Encounter. The data comes from the [place] facility where the Encounter took place. Date/Time Smoking Status/Tobac co Use Comment Facility March 09, 2024 09:00 AM VA-TOBACCO QUIT 15 YRS OR MORE [facility] [place] [facility] March 18, 2023 02:30 PM VA-TOBACCO FORMER USER [facility] [place] [facility] March 18, 2023 02:30 PM VA-TOBACCO QUIT 15 YRS OR MORE [place] [facility] [place] [facility] Jan 11, 2022 08:30 AM VA-TOBACCO FORMER USER [place] [facility] [place] [facility] Jan 11, 2022 08:30 AM VA-TOBACCO QUIT 15 YRS OR MORE [facility] [place] [facility] Dec 26, 2020 09:00 AM VA-TOBACCO FORMER USER [facility] [place] [facility] Dec 26, 2020 09:00 AM VA-TOBACCO QUIT 15 YRS OR MORE [facility] [place] [facility] Dec 08, 2019 09:16 AM VA-TOBACCO FORMER USER [facility] [place] [facility] Dec 08, 2019 09:16 AM VA-TOBACCO QUIT 15 YRS OR MORE [facility] [place] [facility] Oct 14, 2018 02:56 PM VA-TOBACCO FORMER USER [facility] [place] [facility] Oct 14, 2018 02:56 PM VA-TOBACCO QUIT 15 YRS OR MORE [facility] [place] [facility] Dec 12, 2017 09:20 AM QUIT TOBACCO USE > 7 YEARS AGO quit > 30 yrs ( 2-3 pks a day) [facility] [place] [facility] Advance Directives: All historical and current Section Date Range: From patient's date of to the date document was created. This section includes ALL of a patient's completed or amended [place] Advance and Rescinded Directives. The entries below indicate that a directive exists for the patient, but an actual copy is not included with this document. The data comes from all [place] facilities. Date Advance Directives Provider Source Feb 09, 2019 ADVANCE DIRECTIVE VAN [facility] Feb 08, 2019 ADVANCE DIRECTIVE SAMM BRINK V [facility] Encounter Notes: All associated encounter notes This section contains the clinical notes associated to the Encounter. Date/Time Encounter Note(s) Provider Source Jul 13, 2024 02:00 PM SOCIAL WORK GROUP COUNSELING NOTE: LOCAL TITLE: SOCIAL WORK GROUP NOTE STANDARD TITLE: SOCIAL WORK GROUP COUNSELING NOTE DATE OF NOTE: JUL 13, 2024@14:00 ENTRY DATE: JUL 14, 2024@08:06:24 AUTHOR: MANDY FLORES EXP COSIGNER: URGENCY: STATUS: COMPLETED This was a 60-minute supportive psychotherapy group for [place] Veterans with PTSD. 9 members were present today. Topics discussed today included: Members discussed the news that a longtime group member was diagnosed with terminal cancer and would not return to the group. The majority of the group today was spent discussing this, providing space for members thoughts, feelings, and reflections. Fond memories of this were discussed. Other losses, and how to manage grief and loss, were discussed. One other member shared he had a similar cancer years ago that was treatable. Members provided one another support and feedback. Next group will be 07/20/2024 [place] shared his thoughts and feelings on the news. /gio/ MANDY FLORES [facility] PROGRAM COORDINATOR Signed: 07/14/2024 08:29 MANDY FLORES [facility]
--- OUTSIDE RECORDS SUMMARY | 2024-11-02 06:41 | XMS_ITS ---
Author Name [place] Organization [place] Address [address] [place] [id number] Care Team Providers Care It Compliance Manager Name Role Phone YANETH JOE Primary [...] Name Patient's Relationship to Policy [facility] (WNR) MEDICARE ADVANTAGE [facility] (WNR) Oct 28, 2019 [id number] TUTU,JE JONAS PATIENT Selected Encounter This section includes the information on record at [place] for the Encounter. Date/Time Encounter Type Encounter Description Reason Provider Source Aug 03, 2024 02:00 PM GROUP PS[facility]CHOTHERAPY [facility] ICD-10-CM F43.10 Post-traumatic stress disorder, unspecified MARK,ZEUS IE IHE Encounter Template Text not used by [place] Assessments - Encounter Diagnoses This section includes the primary and secondary diagnoses documented for the Encounter. Date/Time Primary/Secondary Diagnosis Diagnosis Name Provider Source Aug 03, 2024 04:03 PM PRIMARY Post-traumatic stress disorder, unspecified MARK,[facility]QUELIN E [facility] Plan of Treatment: Future Appointments (+ 6 months) and Future Tests (+/- 45 days) The Plan of Treatment section includes future care activities for the patient from all [facility] This section includes future appointments and future orders which are active, pending or scheduled. Future Appointments This section includes appointments that were scheduled to occur 6 months from the date of the Encounter, up to a maximum of 20 appointments. The data comes from all [facility]. Appointment Date/Time Appointment Type Appointme nt Facility Name Aug 24, 2024 02:00 PM AMBULATORY - PS[facility]CHIATRY [facility] [place] [facility] Aug 31, 2024 02:00 PM AMBULATORY - PSYCHIATRY [facility] [place] [facility] Sep 08, 2024 08:00 AM AMBULATORY - MEDICINE [place] [facility] [place] [facility] Sep 08, 2024 09:00 AM AMBULATORY - PSYCHIATRY [facility] [place] [facility] Sep 14, 2024 02:00 PM AMBULATORY - PSYCHIATRY [facility] [place] [facility] Sep 21, 2024 02:00 PM AMBULATORY - PSYCHIATRY [facility] [place] [facility] Oct 05, 2024 02:00 PM AMBULATORY - PSYCHIATRY [facility] [place] [facility] Oct 12, 2024 02:00 PM AMBULATORY - PSYCHIATRY [facility] [place] [facility] Oct 19, 2024 02:00 PM AMBULATORY - PSYCHIATRY [facility] [place] [facility] Oct 27, 2024 11:45 AM AMBULATORY - PSYCHIATRY [facility] [place] [facility] Nov 02, 2024 02:00 PM AMBULATORY - PSYCHIATRY [facility] [place] [facility] Nov 23, 2024 02:00 PM AMBULATORY - PSYCHIATRY [facility] [place] [facility] Dec 29, 2024 08:30 AM AMBULATORY - NONE [facility] [place] [facility] Jan 12, 2025 07:30 AM AMBULATORY - NONE [place] [facility] [place] [facility] Active, Pending, and Scheduled Orders This section includes a listing of several types of active, pending, and scheduled orders, including clinic medications orders, diagnostic test orders, procedure orders and consult orders; where the start date of the order is 45 days before the date of the Encounter or 45 days after the date of theEncounter. The data comes from all [place] treatment facilities. Test Date/Time Test Type Test Details Facility Name Sep 08, 2024 08:25 AM Consult Order COMMUNITY CARE-UROLOGY Cons Sash Clamp Operator's Choice [facility] Lab Results: +/- 30 days of the encounter This section includes the Chemistry and Hematology Lab Results on record with [place] for the patient. Radiology Reports and Pathology Reports are provided separately, in subsequent sections. Lab Results This section contains the Chemistry/Hematology Results that were resulted 30 days before or 30 daysafter the date of the Encounter. Date/Time Source Result Type Result - Unit Interpretation Reference Range Comment Aug 31, 2024 01:30 PM [facility] PSA Specimen Type: SERUM No comment entered. Ordering Provider: YANETH JOE Report Released Date/Time: March 09, 2024 09:50 AM Reporting Lab: [address] [id number] Performing Lab: [address] [address] PSA 8.81 ng/mL H 0.00-4.00 Aug 31, 2024 01:30 PM [facility] BASIC METABOLIC PANEL (non-fasting) Specimen Type: SERUM No comment entered. Ordering Provider: YANETH JOE Report Released Date/Time: March 09, 2024 09:50 AM Reporting Lab: [address] [address] Performing Lab: [address] [address] UREA NITROGEN 16 mg/dL 7-25 GLUCOSE 106 mg/dL H 65-100 SODIUM 139 mmol/L 135-145 POTASSIUM 3.9 mmol/L 3.5-5.0 CHLORIDE 105 mmol/L 100-110 CO2 25 meq/L 20-30 CREATININE, Serum 1.17 mg/dL 0.50-1.40 eGFR(CKD-EPI 2020) 65 mL/min >60 [...] took place. Date/Time Current Smoking Status Comment [facility] it March 09, 2024 09:00 AM VA-TOBACCO FORMER USER [place] [facility] [place] [facility] Tobacco Use History This section includes a history of the smoking, or tobacco-related health factors, that were collected on or before the date of the Encounter. The data comes from the [place] facility where the Encounter took place. Date/Time Smoking Status/Tobac co Use Comment Facility March 09, 2024 09:00 AM VA-TOBACCO QUIT 15 YRS OR MORE [place] [facility] [place] [facility] March 18, 2023 02:30 PM VA-TOBACCO FORMER USER [facility] [place] [facility] March 18, 2023 02:30 PM VA-TOBACCO QUIT 15 YRS OR MORE [facility] [place] [facility] Jan 11, 2022 08:30 AM VA-TOBACCO FORMER USER [facility] [place] [facility] Jan 11, 2022 08:30 AM VA-TOBACCO QUIT 15 YRS OR MORE [facility] [place] [facility] Dec 26, 2020 09:00 AM VA-TOBACCO FORMER USER [facility] [place] [facility] Dec 26, 2020 09:00 AM VA-TOBACCO QUIT 15 YRS OR MORE [place] [facility] [place] [facility] Dec 08, 2019 09:16 AM VA-TOBACCO FORMER USER [place] [facility] [place] [facility] Dec 08, 2019 09:16 AM VA-TOBACCO QUIT 15 YRS OR MORE [facility] [place] [facility] Oct 14, 2018 02:56 PM VA-TOBACCO FORMER USER [facility] [place] [facility] Oct 14, 2018 02:56 PM VA-TOBACCO QUIT 15 YRS OR MORE [facility] [place] [facility] Dec 12, 2017 09:20 AM QUIT TOBACCO USE > 7 YEARS AGO quit > 30 yrs ( 2-3 pks a day) [facility] [place] [facility] Advance Directives: All historical and current Section [...] 09, 2019 ADVANCE DIRECTIVE VAN MORENO [facility] Feb 08, 2019 ADVANCE DIRECTIVE SAMM BRINK [facility] Encounter Notes: All associated encounter notes This section contains the clinical notes associated to the Encounter. Date/Time Encounter Note(s) Provider Source Aug 03, 2024 02:00 PM SOCIAL WORK GROUP COUNSELING NOTE: LOCAL TITLE: SOCIAL WORK GROUP NOTE STANDARD TITLE: SOCIAL WORK GROUP COUNSELING NOTE DATE OF NOTE: AUG 03, 2024@14:00 ENTRY DATE: AUG 03, 2024@15:52:21 AUTHOR: MANDY FLORES COSIGNER: URGENCY: STATUS: COMPLETED This was a 60-minute supportive psychotherapy group for [place] Veterans with PTSD. 10 members were present today. Topics discussed today included: - health/mental health issues and concerns of members and loved ones. - activities of daily living, including volunteering and family gatherings. - grief and loss. They discussed their concerns about the recent member with terminal cancer. Some provided updates on their contact with this member outside of group. - alcohol use, including some who are monitoring their alcohol use levels and others who have chosen not to drink at all. - discussion of a group gathering/luncheon outside of group time. Members provided one another support and feedback. Next group will be 08/24/2024 shared some of his knowledge of caring for a family member in rehab. He also talked about his care/concern for the group member with terminal cancer. /gio/ MANDY FLORES [facility] CLINICAL HARNESS PULLER Signed: 08/03/2024 16:04 MANDY FLORES [facility]
--- OUTSIDE RECORDS SUMMARY | 2024-11-02 06:41 | XMS_ITS ---
Author Name [facility] [place] [facility] [place] Organization [facility] [place] Address [address] [place] [address] Care Team Providers Care Traffic Operations Manager Name Role Phone YANETH JOE Primary [...] to Policy [facility] (WNR) MEDICARE ADVANTAGE [facility] (WNR) Oct 28, 2019 [id number] IVANA CAM JONAS PATIENT Selected Encounter This section includes the information on record at [place] for the Encounter. Date/Time Encounter Type Encounter Description Reason Provider Source Aug 31, 2024 02:00 PM GROUP PS[facility]CHOTHERAPY [facility] ICD-10-CM F43.10 Post-traumatic stress disorder, unspecified MARK,ZEUS IE IHE Encounter Template Text not used by [place] Assessments - Encounter Diagnoses This section includes the primary and secondary diagnoses documented for the Encounter. Date/Time Primary/Secondary Diagnosis Diagnosis Name Provider Source Aug 31, 2024 04:19 PM PRIMARY Post-traumatic stress disorder, unspecified MARK[facility] Plan of Treatment: Future Appointments (+ 6 months) and Future Tests (+/- 45 days) The Plan of Treatment section includes future care activities for the patient from all [place] [facility]. This section includes future appointments and future orders which are active, pending or scheduled. Future Appointments This section includes appointments that were scheduled to occur 6 months from the date of the Encounter, up to a maximum of 20 appointments. The data comes from all [place] treatment facilities. Appointment Date/Time Appointment Type Appointme nt Facility Name Sep 08, 2024 08:00 AM AMBULATORY [facility] MEDICINE [facility] [place] [facility] Sep 08, 2024 09:00 AM AMBULATORY - PSYCHIATRY [facility] [place] [facility] Sep 14, 2024 02:00 PM AMBULATORY - PSYCHIATRY [facility] [place] [facility] Sep 21, 2024 02:00 PM AMBULATORY - PSYCHIATRY [facility] [place] [facility] Oct 05, 2024 02:00 PM AMBULATORY - PSYCHIATRY [facility] [place] [facility] Oct 12, 2024 02:00 PM AMBULATORY - PSYCHIATRY [facility] [place] [facility] Oct 19, 2024 02:00 PM AMBULATORY - PSYCHIATRY [facility] [place] [facility] Oct 27, 2024 11:45 AM AMBULATORY - PSYCHIATRY [facility] [place] [facility] Nov 02, 2024 02:00 PM AMBULATORY - PSYCHIATRY [facility] [place] [facility] Nov 23, 2024 02:00 PM AMBULATORY - PSYCHIATRY [facility] [place] [facility] Dec 29, 2024 08:30 AM AMBULATORY - NONE [facility] [place] [facility] Jan 12, 2025 07:30 AM AMBULATORY - NONE [facility] [place] [facility] Active, Pending, and Scheduled Orders This section includes a listing of several types of active, pending, and scheduled orders, including clinic medications orders, diagnostic test orders, procedure orders and consult orders; where the start date of the order is 45 days before the date of the Encounter or 45 days after the date of theEncounter. The data comes from all [place] treatment [facility]. Test Date/Time Test Type Test Details Facility Name Sep 08, 2024 08:25 AM Consult Order COMMUNITY CARE-UROLOGY Cons [employer] Supervisor's Choice [place] [facility] [place] [facility] Lab Results: +/- 30 days of the encounter This section includes the Chemistry and Hematology Lab Results on record with [place] for the patient. Radiology Reports and Pathology Reports are provided separately, in subsequent sections. Lab Results This section contains the Chemistry/Hematology Results that were resulted 30 days before or 30 daysafter the date of the Encounter. Date/Time Source Result Type Result - Unit Interpretation Reference Range Comment Aug 31, 2024 01:30 PM [facility] PSA Specimen Type: SERUM No comment entered. Ordering Provider: YANETH JOE Report Released Date/Time: March 09, 2024 09:50 AM Reporting Lab: [address] [address] Performing Lab: [address] [address] PSA 8.81 ng/mL H 0.00-4.00 Aug 31, 2024 01:30 PM [facility] BASIC METABOLIC PANEL (non-fasting) Specimen Type: SERUM No comment entered. Ordering Provider: YANETH JOE Report Released Date/Time: March 09, 2024 09:50 AM Reporting Lab: [address] [id number] Performing Lab: [address] [address] UREA NITROGEN 16 mg/dL 7-25 GLUCOSE 106 [...] and tobacco- related health factors from the [place] facility where the Encounter took place. Current Smoking Status This section includes the most current smoking, or tobacco-related health factor, from the [place] facility where the Encounter took place. Date/Time Current Smoking Status Comment Tristan ponce March 09, 2024 09:00 AM VA-TOBACCO FORMER USER [facility] [place] [facility] Tobacco Use History This section includes a history of the smoking, or tobacco-related health factors, that were collected on or before the date of the Encounter. The data comes from the [place] facility where the Encounter took place. Date/Time Smoking Status/Tobac co Use Comment Facility March 09, 2024 09:00 AM VA-TOBACCO QUIT 15 YRS OR MORE [place] [facility] [place] [facility] March 18, 2023 02:30 PM VA-TOBACCO FORMER USER [facility] [place] [facility] March 18, 2023 02:30 PM VA-TOBACCO QUIT 15 YRS OR MORE [facility] [place] [facility] Jan 11, 2022 08:30 AM VA-TOBACCO FORMER USER [place] [facility] [place] [facility] Jan 11, 2022 08:30 AM VA-TOBACCO QUIT 15 YRS OR MORE [facility] [place] [facility] Dec 26, 2020 09:00 AM VA-TOBACCO FORMER USER [facility] [place] [facility] Dec 26, 2020 09:00 AM VA-TOBACCO QUIT 15 YRS OR MORE [facility] [place] [facility] Dec 08, 2019 09:16 AM VA-TOBACCO FORMER USER [facility] [place] [facility] Dec 08, 2019 09:16 AM VA-TOBACCO QUIT 15 YRS OR MORE [facility] [place] [facility] Oct 14, 2018 02:56 PM VA-TOBACCO FORMER USER [facility] [place] [facility] Oct 14, 2018 02:56 PM VA-TOBACCO QUIT 15 YRS OR MORE [facility] [place] [facility] Dec 12, 2017 09:20 AM QUIT TOBACCO USE > 7 YEARS AGO quit > 30 yrs ( 2-3 pks a day) [place] [facility] [place] [facility] Advance Directives: All historical and current Section Date Range: From patient's date of to the date document was created. This section includes ALL of a patient's completed or amended VA Advance and Rescinded Directives. The entries below indicate that a directive exists for the patient, but an actual copy is not included with this document. The data comes from all [place] facilities. Date Advance Directives Provider Source Feb 09, 2019 ADVANCE DIRECTIVE VAN MORENO [facility] Feb 08, 2019 ADVANCE DIRECTIVE SAMM BRINK [facility] Encounter Notes: All associated encounter notes This section contains the clinical notes associated to the Encounter. Date/Time Encounter Note(s) Provider Source Aug 31, 2024 02:00 PM SOCIAL WORK GROUP COUNSELING NOTE: LOCAL TITLE: SOCIAL WORK GROUP NOTE STANDARD TITLE: SOCIAL WORK GROUP COUNSELING NOTE DATE OF NOTE: AUG 31, 2024@14:00 ENTRY DATE: AUG 31, 2024@16:14:43 AUTHOR: MANDY FLORES EXP COSIGNER: URGENCY: STATUS: COMPLETED This was a 60-minute supportive psychotherapy group for [place] Veterans with PTSD. 9 members were present today. Topics discussed today included: - health/mental health issues and concerns of members and loved ones. Topic around dementia was again discussed due several members who have family struggling with it. - activities of daily living, including volunteering, trying of new activities, and family gatherings. - grief and loss. Veterans talked further about the one member who has terminal cancer and their thoughts and feelings about it, as well as contact they've had with him outside of the group. Members provided one another support and feedback. Next group will be 09/14/2024 [place] updated the group on his sister who has dementia and her having to move to a locked facility. /gio/ MANDY FLORES [facility] CLINICAL GLOBAL RISK MANAGEMENT DIRECTOR Signed: 08/31/2024 16:20 MANDY FLORES [facility]
--- OUTSIDE RECORDS SUMMARY | 2024-11-02 06:41 | XMS_ITS | Encounter Summary ---
Author Name [facility] [place] Organization [facility] [place] Address [address] [place] [address] Care Team Providers Care Area Director Of Home Health Sales Name Role Phone YANETH JOE Primary Care [...] [facility] (WNR) MEDICARE ADVANTAGE [facility] (WNR) Oct 28, 2019 [id number] IVANA CAM JONAS PATIENT Selected Encounter This section includes the information on record at [place] for the Encounter. Date/Time Encounter Type Encounter Description Reason Provider Source Sep 14, 2024 02:00 PM GROUP PS[facility]CHOTHERAPY [facility] ICD-10-CM F43.10 Post-traumatic stress disorder, unspecified MARK,ZEUS IE IHE Encounter Template Text not used by [place] Assessments - Encounter Diagnoses This section includes the primary and secondary diagnoses documented for the Encounter. Date/Time Primary/Secondary Diagnosis Diagnosis Name Provider Source Sep 14, 2024 04:16 PM PRIMARY Post-traumatic stress disorder, unspecified MARK,[facility] E [facility] Plan of Treatment: Future Appointments (+ 6 months) and Future Tests (+/- 45 days) The Plan of Treatment section includes future care activities for the patient from all [place] [facility]. This section includes future appointments and future orders which are active, pending or scheduled. Future Appointments This section includes appointments that were scheduled to occur 6 months from the date of the Encounter, up to a maximum of 20 appointments. The data comes from all [place] treatment facilities. Appointment Date/Time Appointment Type Appointme nt Facility Name Sep 21, 2024 02:00 PM AMBULATORY - PSYCHIATRY [place] [facility] [place] [facility] Oct 05, 2024 02:00 PM AMBULATORY - PSYCHIATRY [place] [facility] [place] [facility] Oct 12, 2024 02:00 PM AMBULATORY - PSYCHIATRY [place] [facility] [place] [facility] Oct 19, 2024 02:00 PM AMBULATORY - PSYCHIATRY [place] [facility] [place] [facility] Oct 27, 2024 11:45 AM AMBULATORY - PSYCHIATRY [place] [facility] [place] [facility] Nov 02, 2024 02:00 PM AMBULATORY - PSYCHIATRY [place] [facility] [place] [facility] Nov 23, 2024 02:00 PM AMBULATORY - PSYCHIATRY [facility] [place] [facility] Dec 29, 2024 08:30 AM AMBULATORY - NONE [place] [facility] [place] [facility] Jan 12, 2025 07:30 AM AMBULATORY - NONE [place] [facility] [place] [facility] March 09, 2025 08:30 AM AMBULATORY - MEDICINE [place] [facility] [place] [facility] Active, Pending, and Scheduled Orders This section includes a listing of several types of active, pending, and scheduled orders, including clinic medications orders, diagnostic test orders, procedure orders and consult orders; where the start date of the order is 45 days before the date of the Encounter or 45 days after the date of theEncounter. The data comes from all [facility]. Test Date/Time Test Type Test Details Facility Name Sep 08, 2024 08:25 AM Consult Order COMMUNITY CARE-UROLOGY Cons Apprentice Stylist's Choice [place] [facility] [place] [facility] Lab Results: +/- 30 days of the encounter This section includes the Chemistry and Hematology Lab Results on record with [place] for the patient. Radiology Reports and Pathology Reports are provided separately, in subsequent sections. Lab Results This section contains the Chemistry/Hematology Results that were resulted 30 days before or 30 daysafter the date of the Encounter. Date/Time Source Result Type Result - Unit Interpretation Reference Range Comment Aug 31, 2024 01:30 PM [facility] PSA Specimen Type: SERUM No comment entered. Ordering Provider: YANETH JOE Report Released Date/Time: March 09, 2024 09:50 AM Reporting Lab: [address] [address] Performing Lab: [address] [address] PSA 8.81 ng/mL H 0.00-4.00 Aug 31, 2024 01:30 PM [facility] BASIC METABOLIC PANEL (non-fasting) Specimen Type: SERUM No comment entered. Ordering Provider: YANETH JOE Report Released Date/Time: March 09, 2024 09:50 AM Reporting Lab: [address] [address] Performing Lab: [address] [address] UREA NITROGEN 16 mg/dL 7-25 GLUCOSE 106 [...] and tobacco- related health factors from the [place] facility where the Encounter took place. Current Smoking Status This section includes the most current smoking, or tobacco-related health factor, from the [place] facility where the Encounter took place. Date/Time Current Smoking Status Comment Tristan ponce March 09, 2024 09:00 AM VA-TOBACCO FORMER USER [facility] Tobacco Use History This section includes a history of the smoking, or tobacco-related health factors, that were collected on or before the date of the Encounter. The data comes from the [place] facility where the Encounter took place. Date/Time Smoking Status/Tobac co Use Comment Facility March 09, 2024 09:00 AM VA-TOBACCO QUIT 15 YRS OR MORE [place] [facility] [place] [facility] March 18, 2023 02:30 PM VA-TOBACCO FORMER USER [facility] [place] [facility] March 18, 2023 02:30 PM VA-TOBACCO QUIT 15 YRS OR MORE [place] [facility] [place] [facility] Jan 11, 2022 08:30 AM VA-TOBACCO FORMER USER [facility] [place] [facility] Jan 11, 2022 08:30 AM VA-TOBACCO QUIT 15 YRS OR MORE [facility] [place] [facility] Dec 26, 2020 09:00 AM VA-TOBACCO FORMER USER [place] [facility] [place] [facility] Dec 26, 2020 09:00 AM VA-TOBACCO QUIT 15 YRS OR MORE [place] [facility] [place] [facility] Dec 08, 2019 09:16 AM VA-TOBACCO FORMER USER [place] [facility] [place] [facility] Dec 08, 2019 09:16 AM VA-TOBACCO QUIT 15 YRS OR MORE [place] [facility] [place] [facility] Oct 14, 2018 02:56 PM VA-TOBACCO FORMER USER [facility] [place] [facility] Oct 14, 2018 02:56 PM VA-TOBACCO QUIT 15 YRS OR MORE [place] [facility] [place] [facility] Dec 12, 2017 09:20 AM QUIT TOBACCO USE > 7 YEARS AGO quit > 30 yrs ( 2-3 pks a day) [place] [facility] [place] [facility] Advance Directives: All historical and current Section Date Range: From patient's date of to the date document was created. This section includes ALL of a patient's completed or amended [place] Advance and Rescinded Directives. The entries below indicate that a directive exists for the patient, but an actual copy is not included with this document. The data comes from all [place] facilities. Date Advance Directives Provider Source Feb 09, 2019 ADVANCE DIRECTIVE VAN MORENO [place] [facility] [place] [facility] Feb 08, 2019 ADVANCE DIRECTIVE SAMM BRINK [facility] [place] [facility] Encounter Notes: All associated encounter notes This section contains the clinical notes associated to the Encounter. Date/Time Encounter Note(s) Provider Source Sep 14, 2024 02:00 PM SOCIAL WORK GROUP COUNSELING NOTE: LOCAL TITLE: SOCIAL WORK GROUP NOTE STANDARD TITLE: SOCIAL WORK GROUP COUNSELING NOTE DATE OF NOTE: SEP 14, 2024@14:00 ENTRY DATE: SEP 14, 2024@16:09:48 AUTHOR: MANDY FLORES EXP COSIGNER: URGENCY: STATUS: COMPLETED This was a 60-minute supportive psychotherapy group for [place] Veterans with PTSD. 9 members were present today.Today's group focused on the recent passing of a long time group member. Space was provided for processing grief, loss, and remembrance. Other topics discussed today included dealing with dementia in family members. Members provided one another support and feedback. Next group will be 09/21/2024 [place] reflected on the group member that . /gio/ ANSHU CHAVEZ CLINICAL HOTEL MAID Signed: 09/14/2024 16:17 MANDY FLORES [place] [facility]
--- OUTSIDE RECORDS SUMMARY | 2024-11-02 06:41 | XMS_ITS | Encounter Summary ---
Author Name [facility] [place] Address [address] [place] [address] Care Team Providers Care Card Cutter Name Role Phone YANETH JOE Primary Care [...] Policy 's Name Patient's Relationship to Policy [facility] ([facility]) MEDICARE ADVANTAGE [facility] ([facility]) Oct 28, 2019 [id number] IVANA CAM PATIENT Selected Encounter This section includes the information on record at [place] for the Encounter. Date/Time Encounter Type Encounter Description Reason Provider Source Sep 08, 2024 09:00 AM PSYTX W PT W E/M 30 [facility] - IND ICD-10-CM F43.12 Post-traumatic stress disorder, chronic MARIO WIGGINS IHAyah Encounter Template Text not used by [place] Assessments - Encounter Diagnoses This section includes the primary and secondary diagnoses documented for the Encounter. Date/Time Primary/Secondary Diagnosis Diagnosis Name Provider Source Sep 08, 2024 07:19 PM PRIMARY Post-traumatic stress disorder, chronic MARIO WIGGINS [facility] Plan of Treatment: Future Appointments (+ 6 months) and Future Tests (+/- 45 days) The Plan of Treatment section includes future care activities for the patient [facility] This section includes future appointments and future orders which are active, pending or scheduled. Future Appointments This section includes appointments that were scheduled to occur 6 months from the date of the Encounter, up to a maximum of 20 appointments. The data comes from all [facility]. Appointment Date/Time Appointment Type Appointme nt Facility Name Sep 14, 2024 02:00 PM AMBULATORY - [place]IATRY [facility] [place] [facility] Sep 21, 2024 02:00 PM [facility] [place] [facility] Oct 05, 2024 02:00 PM AMBULATORY - PSYCHIATRY [facility] [place] [facility] Oct 12, 2024 02:00 PM AMBULATORY - PS[facility]CHIATRY [facility] [place] [facility] Oct 19, 2024 02:00 PM [facility] Oct 27, 2024 11:45 AM AMBULATORY - PSYCHIATRY [facility] [place] [facility] Nov 02, 2024 02:00 PM [facility] [place] [facility] Nov 23, 2024 02:00 PM AMBULATORY - PSYCHIATRY [facility] [place] [facility] Dec 29, 2024 08:30 AM [facility] [place] [facility] Jan 12, 2025 07:30 AM [facility] Active, Pending, and Scheduled Orders This section includes a listing of several types of active, pending, and scheduled orders, including clinic medications orders, diagnostic test orders, procedure orders and consult orders; where the start date of the order is 45 days before the date of the Encounter or 45 days after the date of theEncounter. The data comes from all [facility]. Test Date/Time Test Type Test Details Facility Name Sep 08, 2024 08:25 AM Consult Order COMMUNITY CARE-UROLOGY Cons Supervisor Beater Room's Choice [facility] Lab Results: +/- 30 days of the encounter This section includes the Chemistry and Hematology Lab Results on record with [place] for the patient. Radiology Reports and Pathology Reports are provided separately, in subsequent sections. Lab Results This section contains the Chemistry/Hematology Results that were resulted 30 days before or 30 daysafter the date of the Encounter. Date/Time Source Result Type Result - Unit Interpretation Reference Range Comment Aug 31, 2024 01:30 PM [facility] PSA Specimen Type: SERUM No comment entered. Ordering Provider: YANETH JOE Report Released Date/Time: March 09, 2024 09:50 AM Reporting Lab: [address] [address] Performing Lab: [address] [address] PSA 8.81 ng/mL H 0.00-4.00 Aug 31, 2024 01:30 PM [facility] BASIC METABOLIC PANEL (non-fasting) Specimen Type: SERUM No comment entered. Ordering Provider: YANETH JOE Report Released Date/Time: March 09, 2024 09:50 AM Reporting Lab: [address] [address] Performing Lab: [address] [address] UREA NITROGEN 16 mg/dL 7-25 GLUCOSE 106 [...] Pain Height Weight Body Mass Index Source Sep 08, 2024 07:59 AM 97.4 68 127/76 16 99 0 74 187 24 [facility] Social History: Smoking Status (Most [...] took place. Date/Time Current Smoking Status Comment [facility] March 09, 2024 09:00 AM VA-TOBACCO QUIT 15 YRS OR MORE [facility] [place] [facility] Tobacco Use History This section includes a history of the smoking, or tobacco-related health factors, that were collected on or before the date of the Encounter. The data comes from the [place] facility where the Encounter took place. Date/Time Smoking Status/Tobac co Use Comment Facility March 09, 2024 09:00 AM VA-TOBACCO QUIT 15 YRS OR MORE [facility] [place] [facility] March 18, 2023 02:30 PM VA-TOBACCO FORMER USER [facility] [place] [facility] March 18, 2023 02:30 PM VA-TOBACCO QUIT 15 YRS OR MORE [facility] [place] [facility] Jan 11, 2022 08:30 AM VA-TOBACCO FORMER USER [facility] [place] [facility] Jan 11, 2022 08:30 AM VA-TOBACCO QUIT 15 YRS OR MORE [facility] [place] [facility] Dec 26, 2020 09:00 AM VA-TOBACCO FORMER USER [facility] [place] [facility] Dec 26, 2020 09:00 AM VA-TOBACCO QUIT 15 YRS OR MORE [facility] [place] [facility] Dec 08, 2019 09:16 AM VA-TOBACCO FORMER USER [facility] [place] [facility] Dec 08, 2019 09:16 AM VA-TOBACCO QUIT 15 YRS OR MORE [facility] [place] [facility] Oct 14, 2018 02:56 PM VA-TOBACCO FORMER USER [facility] [place] [facility] Oct 14, 2018 02:56 PM VA-TOBACCO QUIT 15 YRS OR MORE [facility] [place] [facility] Dec 12, 2017 09:20 AM QUIT TOBACCO USE > 7 YEARS AGO quit > 30 yrs ( 2-3 pks a day) [facility] [place] [facility] Advance Directives: All historical and current [...] Feb 09, 2019 ADVANCE DIRECTIVE VAN MORENO [facility] Feb 08, 2019 ADVANCE DIRECTIVE SAMM BRINK [facility] Encounter Notes: All associated encounter notes This section contains the clinical notes associated to the Encounter. 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 Active [...] feels that he gets good care at [place]. He is also seen by dental clinic and is a group member with ANSHU Chris for PTSD therapy. Continues weekly groups. PAST PSYCHIATRIC HISTORY: started treatment at the [facility] in 2008, he had a comprehensive exam here at the [place] in 2009 and began audiology treatment at [facility] then started mental health treatment for PTSD in 2018 with ANSHU Chris. He was treated by Dr. Radford over many years until that doctor retired. PAST MEDICATION TRIALS: Naltrexone STRENGTHS: conversant and intelligent :[employer] FROM Oct TO Sep SUBJECTIVE: The [place] was seen today for routine follow up; visit lasted for 30 minutes. Pla[place]ow reports doing fine, he and continue to get along well. No alcohol for over four years, not smoking for many years. No use of other drugs. When [place] totally stopped alcohol he found he could lose a good deal of weight, which made him happy. He is maintaining weight and healthy lifestyle and enjoys. Alan is doing well on current stabilizing med, denies side effects or other med issues and wants to continue current med regime. Alan relates that his 68 year old sister is now in a Correction where she is safe. He visits almost [...] days MEDICATION SIDE EFFECTS: none OBJECTIVE: recent labs: LAB RESULTS PROSTATIC SP ANTIGEN: 8.81 H GLUCOSE: 106 H UREA NITROGEN: 16 SODIUM: 139 POTASSIUM: 3.9 CHLORIDE: 105 CO2: 25 CREATININE-EGFR: 1.17 eGFR CKD-EPI 2020: 65 Weight: 187 MENTAL STATUS EXAM: Orientation and Consciousness: Alert and fully oriented. Appearance and Behavior: Well groomed. Casually and appropriately dressed. Has on white button down shirt and chowdary slacks, mendiola jacket, with dress shoes. Good hygiene. Nicely groomed. Pleasant. Cooperative. Eye Contact: Good. Speech: Normal rate and volume. Mood/Affect: Euthymic with a congruent affect. Thought Production/Content: Logical, sequential & relevant to discussion. Perceptual Disturbances: None. Attention, concentration and memory based on answers to session questions: Good. Insight/Judgment: Both good. Ability to Provide informed consent: Yes. ASSESSMENT: 74 year old BLACK OR MALE, presents today [...] not need to worry as much. [facility], so she can stay in a [facility]. She has nice staff and residents at her current Correction. He is assisting as much as he can. His stress is down a bit and he is again able to interact well today. He is a bit worried currently, because staff cannot control sister when she tries to leave, so they are now seeking a safer facility for her. Lia states that he asked if they wanted to give her more meds to address her behavior, but staff said no. Lia denies any side effects or other problems with current med and would like to continue 90 day refills. Denies any other issues today we reviewed his recent labs and upcoming appointments and he expressed understanding. We also reviewed patient education on meds, patient expresses understanding. Patient was reviewed on PACT team members and how to reach them. Lia has been walking daily and this continues to help his health. (x)stable psychiatrically ()unstable psychiatrically i. Severity of Illness: ()none (x)mild ()moderately ill ()severely ill ()very severely ill ii. Global Improvement: ()very much (x)much ()min ()none ()min worse ()much worse ()very much worse iii. Current risk of harm: ()none (x)low () mod ()high TREATMENT PLAN/ DISCUSSION/ RATIONALE: 1. continue current medication, no indication for altering regimen. Sleeping and minimal nightmares, no side effects, lightheadedness or dizziness in ams. Denies any falls. Knows to sit, then stand slowly. Can take own BP and knows to use care with current med. He wants to keep current med in place at this time. 2. continue current therapy and he was also told about the [facility] in case he should have an urgent need. 3. Reviewed recent lab, current med with minimal metabolic effect. Reviewed med effect on BP and being careful with rising, he is aware. 4. Walking two miles daily for his health, doing well overall. Next Visit: in 4-5 months. However, I asked the patient to call me or to come to return for sooner appointment if the patient does not like the effect of psychiatric medication or if has side effects with psychiatric medication. LAB REVIEW: ()none/not applicable (x)discussed lab results, no change in plan, had labs slight spike in glucose and elevated PSA ()discussed lab results, in particular: PATIENT EDUCATION/ INFORMED CONSENT:()not required, no new changes (x)Discussion was held with patient as to risks/ benefits/ hazards of this regimen, as well as alternatives available. The patient appeared able to understand this information and accepted the risks involved. CRISIS PLAN: The patient denied suicidal and violent ideation, but the [facility] Line information and number were given to patient. The patient also understands to call 911 or to go to ER in the event of an emergency. Medication Reconciliation: Outpatient: Has the patient been taking medications as documented in the EMLR? YES: The patient has been taking medications as documented in the EMLR. Essential Medication List for Review used to complete this medication reconciliation. INCLUDED IN THIS LIST: Alphabetical list of active outpatient prescriptions dispensed from this [facility] (local) and dispensed from another [place] or [facility] facility (remote) as well as inpatient orders (local, pending and active), local clinic medications, locally documented non-VA medications, and local prescriptions that have or been discontinued in the past 90 days. - All changes in medications, including all non-VA/Herbal/OTC medications were entered into [facility]S. - If there were any medications the patient should no longer take, they were discontinued. - The patient/caregiver was instructed to update this list, discard old lists, and take this list to the next appointment, whether with a VA or non-VA provider. /gio/ TONI WIGGINS, RN,MSN,PSYCH N.P., STAFF CLINICAL NURSE SPECIALIST Signed: 09/08/2024 19:19 [facility]INS [facility]
--- OUTSIDE RECORDS SUMMARY | 2024-11-02 06:41 | XMS_ITS | Encounter Summary ---
Author Name [place] Address [address] [place] [address] Care Team Providers Care Ehs Manager Name Role Phone YANETH JOE Primary [...] Policy 's Name Patient's Relationship to Policy [facility] ([place]) MEDICARE ADVANTAGE [facility] ([place]) Oct 28, 2019 [id number] TUTU,IVANA MCDANIEL PATIENT Selected Encounter This section includes the information on record at [place] for the Encounter. Date/Time Encounter Type Encounter Description Reason Pro vider Source Aug 06, 2024 12:00 AM Outpatient Encounter EVENT (HISTORICAL) IHE Encounter Template Text not used by CT Plan of Treatment: Future Appointments (+ 6 months) and Future Tests (+/- 45 days) The Plan of Treatment section includes future care activities for the patient from all [place] treatmentfacilities. This section includes future appointments and [...] AMBULATORY - PSYCHIATRY [facility] [place] [facility] Aug 31, 2024 02:00 PM AMBULATORY - PSYCHIATRY [facility] [place] [facility] Sep 08, 2024 08:00 AM AMBULATORY [facility] MEDICINE [facility] [place] [facility] Sep 08, 2024 09:00 AM AMBULATORY - PSYCHIATRY [facility] [place] [facility] Sep 14, 2024 02:00 PM AMBULATORY - PSYCHIATRY [facility] [place] [facility] Sep 21, 2024 02:00 PM AMBULATORY - PSYCHIATRY [facility] [place] [facility] Oct 05, 2024 02:00 PM AMBULATORY - PSYCHIATRY [facility] [place] [facility] Oct 12, 2024 02:00 PM AMBULATORY - PSYCHIATRY [facility] [place] [facility] Oct 19, 2024 02:00 PM AMBULATORY - PSYCHIATRY [facility] [place] [facility] Oct 27, 2024 11:45 AM AMBULATORY - PSYCHIATRY [facility] [place] [facility] Nov 02, 2024 02:00 PM AMBULATORY - PSYCHIATRY [facility] [place] [facility] Nov 23, 2024 02:00 PM AMBULATORY - PSYCHIATRY [facility] [place] [facility] Dec 29, 2024 08:30 AM AMBULATORY - NONE [facility] [place] [facility] Jan 12, 2025 07:30 AM AMBULATORY - NONE [facility] [place] [facility] Active, Pending, and Scheduled Orders This section includes a listing of several types of active, pending, and scheduled orders, including clinic medications orders, diagnostic test orders, procedure orders and consult orders; where the start date of the order is 45 days before the date of the Encounter or 45 days after the date of theEncounter. The data comes from all [place] treatment facilities. Test Date/Time Test Type Test Details Facility Name Sep 08, 2024 08:25 AM Consult Order COMMUNITY CARE-UROLOGY Cons Spot Cleaner's Choice [facility] [place] [facility] Lab Results: +/- 30 days of [...] Range Comment Aug 31, 2024 01:30 PM [facility] PSA Specimen Type: SERUM No comment entered. Ordering Provider: YANETH JOE Report Released Date/Time: March 09, 2024 09:50 AM Reporting Lab: [facility] [address] [facility] [id number] Performing Lab: [address] [address] PSA 8.81 ng/mL H 0.00-4.00 Aug 31, 2024 01:30 PM [facility] BASIC METABOLIC PANEL (non-fasting) Specimen Type: SERUM No comment entered. Ordering Provider: YANETH JOE Report Released Date/Time: March 09, 2024 09:50 AM Reporting Lab: [facility] [address] [facility] [address] Performing Lab: [facility] [address] [facility] [address] UREA NITROGEN 16 mg/dL 7-25 GLUCOSE 106 mg/dL H 65-100 SODIUM 139 mmol/L 135-145 POTASSIUM 3.9 mmol/L 3.5-5.0 CHLORIDE 105 mmol/L 100-110 CO2 25 meq/L 20-30 CREATININE, Serum 1.17 mg/dL 0.50-1.40 eGFR(CKD-EPI 2020) 65 mL/min >60 Immunizations: All administered on the encounter date This section contains immunizations associated to the Encounter. Immunization Series Date Issued Reaction Comments INFLUENZA, UNSPECIFIED FORMULATION Aug 06, 2024 Social History: Smoking Status (Most current) and [...] VA-TOBACCO FORMER USER [facility] [place] [facility] Tobacco Use History This section includes a history of the smoking, or tobacco-related health factors, that were collected on or before the date of the Encounter. The data comes from the [place] facility where the Encounter took place. Date/Time Smoking Status/Tobac co Use Comment Facility March 09, 2024 09:00 AM VA-TOBACCO QUIT [address] [facility] [place] [facility] March 18, 2023 02:30 PM VA-TOBACCO FORMER USER [facility] [place] [facility] March 18, 2023 02:30 PM VA-TOBACCO QUIT [address] [facility] [place] [facility] Jan 11, 2022 08:30 AM VA-TOBACCO FORMER USER [facility] [place] [facility] Jan 11, 2022 08:30 AM VA-TOBACCO QUIT [address] [facility] [place] [facility] Dec 26, 2020 09:00 AM VA-TOBACCO FORMER USER [facility] [place] [facility] Dec 26, 2020 09:00 AM VA-TOBACCO QUIT [address] [facility] [place] [facility] Dec 08, 2019 09:16 AM VA-TOBACCO FORMER USER [facility] [place] [facility] Dec 08, 2019 09:16 AM VA-TOBACCO QUIT [address] [facility] [place] [facility] Oct 14, 2018 02:56 PM VA-TOBACCO FORMER USER [facility] [place] [facility] Oct 14, 2018 02:56 PM VA-TOBACCO QUIT [address] [facility] [place] [facility] Dec 12, 2017 09:20 AM QUIT TOBACCO USE > 7 YEARS AGO quit > 30 yrs ( 2-3 pks a day) [facility] [place] [facility] Advance Directives: All historical and current [...] Feb 09, 2019 ADVANCE DIRECTIVE VAN MORENO [facility] Feb 08, 2019 ADVANCE DIRECTIVE SAMM BRINK [facility]
--- OUTSIDE RECORDS SUMMARY | 2024-11-02 06:41 | XMS_ITS | Encounter Summary ---
Author Name [facility] [place] Organization [place] Address [address] [place] [id number] Care Team Providers Care Medicaid Plan Compliance Director Name Role Phone YANETH JOE Primary [...] Policy 's Name Patient's Relationship to Policy [facility] (WNR) MEDICARE ADVANTAGE [facility] (R) Oct 28, 2019 [id number] TUTU,JE JNOAS PATIENT Selected Encounter This section includes the information on record at [place] for the Encounter. Date/Time Encounter Type Encounter Description Reason Provider Source Aug 24, 2024 02:00 PM GROUP [facility] ICD-10-CM F43.10 Post-traumatic stress disorder, unspecified MARK,ZEUS IE IHE Encounter Template Text not used by [place] Assessments - Encounter Diagnoses This section includes the primary and secondary diagnoses documented for the Encounter. Date/Time Primary/Secondary Diagnosis Diagnosis Name Provider Source Aug 24, 2024 04:00 PM PRIMARY Post-traumatic stress disorder, unspecified [facility] Plan of Treatment: Future Appointments (+ 6 months) and Future Tests (+/- 45 days) The Plan of Treatment section includes future care activities for the [facility] [place] [facility] This section includes future appointments and future orders which are active, pending or scheduled. Future Appointments This section includes appointments that were scheduled to occur 6 months from the date of the Encounter, up to a maximum of 20 appointments. The data comes from all [place] treatment facilities. Appointment Date/Time Appointment Type Appointme nt Facility Name Aug 31, 2024 02:00 PM AMBULATORY - [facility]IATRY [facility] [place] [facility] Sep 08, 2024 08:00 AM AMBULATORY - MEDICINE [facility] [place] [facility] Sep 08, 2024 09:00 AM AMBULATORY - PSYCHIATRY [facility] [place] [facility] Sep 14, 2024 02:00 PM AMBULATORY - PSYCHIATRY [facility] [place] [facility] Sep 21, 2024 02:00 PM AMBULATORY - PSYCHIATRY [facility] [place] [facility] Oct 05, 2024 02:00 PM AMBULATORY - PSYCHIATRY [facility] [place] [facility] Oct 12, 2024 02:00 PM AMBULATORY - PSYCHIATRY [facility] [place] [facility] Oct 19, 2024 02:00 PM AMBULATORY - PSYCHIATRY [facility] [place] [facility] Oct 27, 2024 11:45 AM AMBULATORY - PSYCHIATRY [facility] [place] [facility] Nov 02, 2024 02:00 PM AMBULATORY - PSYCHIATRY [facility] [place] [facility] Nov 23, 2024 02:00 PM AMBULATORY - PSYCHIATRY [facility] [place] [facility] Dec 29, 2024 08:30 AM AMBULATORY - NONE [facility] [place] [facility] Jan 12, 2025 07:30 AM AMBULATORY - NONE [facility] [place] [facility] Active, Pending, and Scheduled Orders This section includes a listing of several types of active, pending, and scheduled orders, including clinic medications orders, diagnostic test orders, procedure orders and consult orders; where the start date of the order is 45 days before the date of the Encounter or 45 days after the date of theEncounter. The data comes from all [place] [facility]. Test Date/Time Test Type Test Details Facility Name Sep 08, 2024 08:25 AM Consult Order [facility]-UROLOGY Cons Methods Analyst's Choice [facility] Lab Results: +/- 30 days of the encounter This section includes the Chemistry and Hematology Lab Results on record with [place] for the patient. Radiology Reports and Pathology Reports are provided separately, in subsequent sections. Lab Results This section contains the Chemistry/Hematology Results that were resulted 30 days before or 30 daysafter the date of the Encounter. Date/Time Source Result Type Result - Unit Interpretation Reference Range Comment Aug 31, 2024 01:30 PM [facility] PSA Specimen Type: SERUM No comment entered. Ordering Provider: YANETH JOE Report Released Date/Time: March 09, 2024 09:50 AM Reporting Lab: [address] [address] Performing Lab: [address] [address] PSA 8.81 ng/mL H 0.00-4.00 Aug 31, 2024 01:30 PM [facility] BASIC METABOLIC PANEL (non-fasting) Specimen Type: SERUM No comment entered. Ordering Provider: YANETH JOE Report Released Date/Time: March 09, 2024 09:50 AM Reporting Lab: [address] [address] Performing Lab: [address] [address] UREA NITROGEN 16 mg/dL 7-25 GLUCOSE 106 [...] and tobacco- related health factors from the [place] facility where the Encounter took place. Current Smoking Status This section includes the most current smoking, or tobacco-related health factor, from the [place] facility where the Encounter took place. Date/Time Current Smoking Status Comment [facility] March 09, 2024 09:00 AM [facility]-TOBACCO QUIT [facility] YRS [facility] [place] [facility] Tobacco Use History This section includes a history of the smoking, or tobacco-related health factors, that were collected on or before the date of the Encounter. The data comes from the [place] facility where the Encounter took place. Date/Time Smoking Status/Tobac co Use Comment Facility March 09, 2024 09:00 AM VA-TOBACCO QUIT 15 YRS OR MORE [place] [facility] [place] [facility] March 18, 2023 02:30 PM VA-TOBACCO FORMER USER [place] [facility] [place] [facility] March 18, 2023 02:30 PM VA-TOBACCO QUIT 15 YRS OR MORE [place] [facility] [place] [facility] Jan 11, 2022 08:30 AM VA-TOBACCO FORMER USER [place] [facility] [place] [facility] Jan 11, 2022 08:30 AM VA-TOBACCO QUIT 15 YRS OR MORE [place] [facility] [place] [facility] Dec 26, 2020 09:00 AM VA-TOBACCO FORMER USER [place] [facility] [place] [facility] Dec 26, 2020 09:00 AM VA-TOBACCO QUIT 15 YRS OR MORE [place] [facility] [place] [facility] Dec 08, 2019 09:16 AM VA-TOBACCO FORMER USER [place] [facility] [place] [facility] Dec 08, 2019 09:16 AM VA-TOBACCO QUIT 15 YRS OR MORE [place] [facility] [place] [facility] Oct 14, 2018 02:56 PM VA-TOBACCO FORMER USER [place] [facility] [place] [facility] Oct 14, 2018 02:56 PM VA-TOBACCO QUIT 15 YRS OR MORE [place] [facility] [place] [facility] Dec 12, 2017 09:20 AM QUIT TOBACCO USE > 7 YEARS AGO quit > 30 yrs ( 2-3 pks a day) [place] [facility] [place] [facility] Advance Directives: All historical and current Section Date Range: From patient's date of to the date document was created. This section includes ALL of a patient's completed or amended [place] Advance and Rescinded Directives. The entries below indicate that a directive exists for the patient, but an actual copy is not included with this document. The data comes from all [place] facilities. Date Advance Directives Provider Source Feb 09, 2019 ADVANCE DIRECTIVE VAN MORENO [facility] Feb 08, 2019 ADVANCE DIRECTIVE SAMM BRINK [facility] Encounter Notes: All associated encounter notes This section contains the clinical notes associated to the Encounter. Date/Time Encounter Note(s) Provider Source Aug 24, 2024 02:00 PM SOCIAL WORK GROUP COUNSELING NOTE: LOCAL TITLE: SOCIAL WORK GROUP NOTE STANDARD TITLE: SOCIAL WORK GROUP COUNSELING NOTE DATE OF NOTE: AUG 24, 2024@14:00 ENTRY DATE: AUG 24, 2024@15:47:53 AUTHOR: MANDY FLORES EXP COSIGNER: URGENCY: STATUS: COMPLETED This was a 60-minute supportive psychotherapy group for [employer] Veterans with PTSD. 9 members were present today. Topics discussed today included: - health/mental health issues and concerns of members and loved ones. Topic around dementia was discussed due to another member who is struggling with a family member with it. - activities of daily living, including volunteering and family gatherings. - grief and loss. Veterans talked about the one member who has terminal cancer and their thoughts and feelings about it. This group member wanted to be called during the group to say hello to the group, which occurred with help desk team leader's facilitation. Veterans got to share they missed this and express their care for him. - alcohol use, including one member's success in exposure to it but not drinking. Members provided one another support and feedback. Next group will be 08/31/2024 Waldo reported he was doing well. He shared an update about his sister who has dementia. /gio/ MANDY FLORES [facility] CLINICAL COUNTER TOP ASSEMBLER Signed: 08/24/2024 16:02 MANDY FLORES [facility]
--- OUTSIDE RECORDS SUMMARY | 2024-11-02 06:41 | XMS_ITS | Encounter Summary ---
Author Name [place] Address [address] [place] [id number] Care Team Providers Care Soil Conservation Technician Name Role Phone YANETH JOE Primary Care [...] Policy 's Name Patient's Relationship to Policy [facility] ([facility]) MEDICARE AD[facility]AGE [facility] ([facility]) Oct 28, 2019 [id number] IVANA CAM PATIENT Selected Encounter This section includes the information on record at [place] for the Encounter. Date/Time Encounter Type Encounter Description Reason Provider Source Sep 08, 2024 08:00 AM OFFICE O/P EST MOD 30 MIN PRIMARY CARE/MEDICINE ICD-10-CM R97.20 Elevated prostate specific antigen [PSA] YANETH JOE Ayah Encounter Template Text not used by [place] Assessments - Encounter Diagnoses This section includes the primary and secondary diagnoses documented for the Encounter. Date/Time Primary/Secondary Diagnosis Diagnosis Name Provider Source Sep 08, 2024 08:25 AM PRIMARY Elevated prostate specific antigen [PSA] YANETH JOE [place] [facility] [place] [facility] Sep 08, 2024 08:25 AM SECONDARY Alcohol dependence, in remission FURCOLO,YANETH [facility] [place] [facility] Sep 08, 2024 08:25 AM SECONDARY Allergy to seafood FURCOLO,YANETH [facility] [place] [facility] Sep 08, 2024 08:25 AM SECONDARY Aortic ectasia, unspecified site FURCOLO,YANETH [facility] [place] [facility] Sep 08, 2024 08:25 AM SECONDARY Contact with and exposure to other hazardous substances FURCOLO,YANETH [facility] [place] [facility] Sep 08, 2024 08:25 AM SECONDARY Emphysema, unspecified FURCOLO,YANETH [facility] [place] [facility] Sep 08, 2024 08:25 AM SECONDARY Essential (primary) hypertension FURCOLO,YANETH [facility] [place] [facility] Sep 08, 2024 08:25 AM SECONDARY Hyperlipidemia, unspecified FURCOLO,YANETH [facility] [place] [facility] Sep 08, 2024 08:25 AM SECONDARY Post-traumatic stress disorder, chronic FURCOLO,YANETH [facility] [place] [facility] Sep 08, 2024 08:25 AM SECONDARY Sensorineural hearing loss, bilateral FURCOLO,YANETH [facility] [place] [facility] Plan of Treatment: Future Appointments (+ 6 months) and Future Tests (+/- 45 days) The Plan of Treatment section includes future care activities for the patient from all [place] treatmentfacilities. This section includes future appointments and [...] AMBULATORY - PSYCHIATRY [facility] [place] [facility] Sep 21, 2024 02:00 PM AMBULATORY - PSYCHIATRY [facility] [place] [facility] Oct 05, 2024 02:00 PM AMBULATORY - PSYCHIATRY [facility] [place] [facility] Oct 12, 2024 02:00 PM AMBULATORY - PSYCHIATRY [facility] [place] [facility] Oct 19, 2024 02:00 PM [facility] [place] [facility] Oct 27, 2024 11:45 AM [facility] [place] [facility] Nov 02, 2024 02:00 PM AMBULATORY - PSYCHIATRY [place] [facility] [facility] Nov 23, 2024 02:00 PM [facility] [place] [facility] Dec 29, 2024 08:30 AM [facility] Jan 12, 2025 07:30 AM [facility] Active, Pending, and Scheduled Orders This section includes a listing of several types of active, pending, and scheduled orders, including clinic medications orders, diagnostic test orders, procedure orders and consult orders; where the start date of the order is 45 days before the date of the Encounter or 45 days after the date of theEncounter. The data comes from all [place] treatment facilities. Test Date/Time Test Type Test Details Facility Name Sep 08, 2024 08:25 AM Consult Order [facility]-UROLOGY Cons Machine Rough Rounder's Choice [facility] Lab Results: +/- 30 days of the encounter This section includes the Chemistry and Hematology Lab Results on record with [place] for the patient. Radiology Reports and Pathology Reports are provided separately, in subsequent sections. Lab Results This section contains the Chemistry/Hematology Results that were resulted 30 days before or 30 daysafter the date of the Encounter. Date/Time Source Result Type Result - Unit Interpretation Reference Range Comment Aug 31, 2024 01:30 PM [facility] PSA Specimen Type: SERUM No comment entered. Ordering Provider: YANETH JOE Report Released Date/Time: March 09, 2024 09:50 AM Reporting Lab: [address] [address] Performing Lab: [address] [address] PSA 8.81 ng/mL H 0.00-4.00 Aug 31, 2024 01:30 PM [facility] BASIC METABOLIC PANEL (non-fasting) Specimen Type: SERUM No comment entered. Ordering Provider: YANETH JOE Report Released Date/Time: March 09, 2024 09:50 AM Reporting Lab: [facility] [address] [address] Performing Lab: [facility] [address] [address] UREA NITROGEN 16 mg/dL 7-25 GLUCOSE 106 [...] 127/76 16 99 0 74 187 24 [facility] Social History: Smoking Status (Most current) [...] Hospital it March 09, 2024 09:00 AM [place]-TOBACCO FORMER USER [facility] Tobacco Use History This section includes a history of the smoking, or tobacco-related health factors, that were collected on or before the date of the Encounter. The data comes from the [place] facility where the Encounter took place. Date/Time Smoking Status/Tobac co Use Comment Facility March 09, 2024 09:00 AM [place]-TOBACCO QUIT 15 YRS OR MORE [facility] March 18, 2023 02:30 PM VA-TOBACCO FORMER USER [facility] March 18, 2023 02:30 PM [place]-TOBACCO QUIT 15 YRS OR MORE [facility] Jan 11, 2022 08:30 AM VA-TOBACCO FORMER USER [place] [facility] [facility] Jan 11, 2022 08:30 AM VA-TOBACCO QUIT 15 YRS OR MORE [facility] [place] [facility] Dec 26, 2020 09:00 AM VA-TOBACCO FORMER USER [facility] [place] [facility] Dec 26, 2020 09:00 AM VA-TOBACCO QUIT 15 YRS OR MORE [place] [facility] [facility] Dec 08, 2019 09:16 AM VA-TOBACCO FORMER USER [facility] [place] [facility] Dec 08, 2019 09:16 AM VA-TOBACCO QUIT 15 YRS OR MORE [facility] [place] [facility] Oct 14, 2018 02:56 PM VA-TOBACCO FORMER USER [place] [facility] [facility] Oct 14, 2018 02:56 PM VA-TOBACCO QUIT 15 YRS OR MORE [place] [facility] [facility] Dec 12, 2017 09:20 AM QUIT TOBACCO USE > 7 YEARS AGO quit > 30 yrs ( 2-3 pks a day) [facility] Advance Directives: All historical and current [...] Feb 09, 2019 ADVANCE DIRECTIVE VAN MORENO [place] [facility] Feb 08, 2019 ADVANCE DIRECTIVE [facility] Encounter Notes: All associated encounter notes This section contains the clinical notes associated to the Encounter. Date/Time Encounter Note(s) Provider Source Sep 08, 2024 08:02 AM PREVENTIVE MEDICIN E NURSING NOTE: LOCAL TITLE: CLINICAL REMINDERS/NURSING STANDARD TITLE: PREVENTIVE MEDICINE NURSING NOTE DATE OF NOTE: SEP 08, 2024@08:02 ENTRY DATE: SEP 08, 2024@08:02:52 AUTHOR: TAE WOODS EXP COSIGNER: URGENCY: STATUS: COMPLETED Depression Screening: Perform PHQ-2 A PHQ-2 screen was performed. The score was 0 which is a negative screen for depression. Over the past two weeks, how often have you been bothered by the following problems? 1. Little interest or pleasure in doing things Not at all 2. Feeling down, depressed, or hopeless Not at all Falls & Incontinence Screen: Falls Screen: 4. No falls within the past year. Incontinence Screen No incontinence. Influenza Immunization: The patient has received the seasonal influenza vaccine for the current season at another location. Documented: INFLUENZA, UNSPECIFIED FORMULATION Historical Date Administered: Aug 06, 2024 Series: Complete Outside Location: Outside Healthcare Provider Information Source: FROM OTHER REGISTRY COVID-19 Immunization: Vaccine given previously - no written/electronic documentation available Sexual Orientation: The patient thinks of their sexual orientation as: Straight or Heterosexual /es/ TAE WOODS LPN License Practical Nurse Signed: 09/08/2024 08:04 TAE WOODS [place] [facility] [facility] Sep 08, 2024 08:01 AM PHYSICIAN NOTE: LOCAL TITLE: MD NOTE STANDARD TITLE: PHYSICIAN NOTE DATE OF NOTE: SEP 08, 2024@08:01 ENTRY DATE: SEP 08, 2024@08:01:33 AUTHOR: YANETH JOE EXP COSIGNER: URGENCY: STATUS: COMPLETED HIGINIO CAM JR is a 74 year old BLACK OR MALE who is being seen today in primary care for routine follow up. === CARE TEAM === Community Primary Care Provider: Dr. 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 +AO === HISTORY OF PRESENT ILLNESS === Patient presents today for routine f/u. reviewed labs. no further hematuria. discussed recent lung ca screening eval- CT - which also visualized AAA- stable. === RELEVANT PAST MEDICAL HISTORY === Active problems - Computerized Problem List is the source for the followin. Exposure to potentially hazardous substance ([facility]CT [id number]) Entered automatically through [employer] Problem List documentation program 2. 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 Bilateral hearing loss 4. Emphysema of lung On chest CT 07/2022 5. Incomplete bladder emptying NON [place] UROLOGY CONSULT - orderby non [facility] PCP Medication - ? ( not confiemd) 6. Hyperlipidemia 7. Chronic alcoholism in remission reviewed reviewed reviewed reviewed reviewed reiviewed 8. Chronic post-traumatic stress disorder Reviewed reviewed reviewed reviewed reviewed reviewed reviewed 9. Anaphylactic reaction 10. 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 previous problem drinker Tobacco Use: quit in 1990, smoked for 30 years- 3-4 packs Drug Use: none Exercise: [place] daily 2 miles === ALLERGIES === SHELLFISH, BEE STINGS, ENVIRONMENTAL ALLERGENS === MEDICATIONS === Active and Recently Outpatient Medications (excluding Supplies): Active Outpatient Medications Status 1) AMLODIPINE BESYLATE 5MG TAB TAKE ONE TABLET BY MOUTH ACTIVE ONCE DAILY FOR BLOOD PRESSURE/HEART, DO NOT TAKE WITH GRAPEFRUIT JUICE 2) EPINEPHRINE (EQV-EPI-PEN) 0.3MG/0.3ML INJECT ACTIVE DIRECTED INTRAMUSCULARLY ONCE DAILY NEEDED FOR LIFE THREATENING ALLERGIC REACTION 3) PRAZOSIN HCL 2MG CAP TAKE ONE CAPSULE BY MOUTH AT ACTIVE BEDTIME FOR NIGHTMARES 4) ROSUVASTATIN CA 20MG TAB TAKE ONE TABLET BY MOUTH ACTIVE ONCE DAILY FOR CHOLESTEROL Inactive Outpatient Medications Status 1) SODIUM FLUORIDE 1.1% TOOTHPASTE BRUSH SMALL AMOUNT TO TEETH TWICE DAILY FOR TOOTH DECAY PREVENTION Active Non-VA Medications Status 1) Non-VA BENAZEPRIL HCL 20MG TAB 20MG BY MOUTH EVERY ACTIVE MORNING 2) Non-VA EPINEPHRINE (EQV-EPI PEN) 0.3ML/0.3ML INJ,SOLN ACTIVE INTRAMUSCULARLY 3) Non-VA FEXOFENADINE HCL 180MG TAB 180MG BY MOUTH ONCE ACTIVE DAILY 8 Total Medications === REVIEW OF SYMPTOMS === [...] - - - - - - B/P: 127/76 (09/08/2024 07:59) pulse: 68 (09/08/2024 07:59) resp: 16 (09/08/2024 07:59) temp: 97.4 F [36.3 C] (09/08/2024 07:59) Ht: 74 in [188.0 cm] (09/08/2024 07:59) Wgt: 187 lb [84.82 kg] (09/08/2024 07:59) BMI: BMI: 24.1 Exam: - - - - - - [...] no LE edema === RECENT LABS === LAB CHEMISTRY & HEMATOLOGY Collection DT Specimen Test Name Result Units Ref Range 08/31/2024 13:30 SERUM PSA 8.81 H ng/mL 0.00 - 4.00 08/31/2024 13:30 SERUM CREATININE, Serum 1.17 mg/dL 0.50 - 1.40 eGFR(CKD-EPI 2020 65 mL/min Ref: >=60 SODIUM 139 mmol/L 135 - 145 POTASSIUM 3.9 mmol/L 3.5 - 5.0 CHLORIDE 105 mmol/L 100 - 110 CO2 25 mEq/L 20 - 30 UREA NITROGEN 16 mg/dL 7 - 25 GLUCOSE 106 H mg/dL 65 - 100 SERUM Aug 31 Feb 06 Reference 2023 2018 13:30 09:30 Units Ranges PSA 8.81 H 2.50 ng/mL 0 - 4 === ASSESSMENT AND PLAN === Active problems - Computerized Problem List is the source for the followin. Exposure to potentially hazardous substance ([facility] [id number]) Entered automatically through [employer] Problem List documentation program 2. 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 continue to repeat yearly- was ordered for 12/2024 3. Bilateral hearing loss- wears hearing aides 4. Emphysema of lung 5. Elevated PSA- currently 8.8, previously 2.5 in 2019. +family h/o prostate CA- father. +AO exposure. no increasing symtpoms 6. Hyperlipidemia 7. Chronic alcoholism in remission 8. Chronic post-traumatic stress disorder 9. Anaphylactic reaction 10. Hypertension - at goal - on amlodipine and benzapril === HEALTH MAINTENANCE === Colonoscopy - due 2024- outside primary care orders- Lutz lung Ca screening 12/2023 Abdominal Aortic Aneurysm Screening- ascending ortha aneursysm 4.1, repeat yearly- next due 12/2024 Prostate screening - elevated 8.8 in 2023, was 2.5 in 2019- referred to Dr. Gray Tetanus: due every 10 years Pneumonia Vacccine: Flu Vaccine: due yearly Covid Vaccine: due yearly === FOLLOW UP === f/u in 6 mo with labs VISIT TYPE: a MODERATE complexity visit where 30 - 45 minutes was spent in direct patient care, review of records and documentation. /gio/ YANETH JOE D.O. PHYSICIAN Signed: 09/08/2024 08:25 YANETH JOE [facility]
--- OUTSIDE RECORDS SUMMARY | 2024-11-02 06:41 | XMS_ITS | Encounter Summary ---
Author Name [facility] [place] Organization [place] Address [address] [place] [id number] Care Team Providers Care Net Software Engineer Name Role Phone YANETH JOE Primary [...] Policy 's Name Patient's Relationship to Policy [facility] (WNR) MEDICARE ADVANTAGE [facility] (WNR) Oct 28, 2019 [id number] IVANA CAM JONAS PATIENT Selected Encounter This section includes the information on record at [place] for the Encounter. Date/Time Encounter Type Encounter Description Reason Provider Source Jun 15, 2024 02:00 PM GROUP PSYCHOTHERAPY [facility] ICD-10-CM F43.10 Post-traumatic stress disorder, unspecified MARK,ZEUS IE IHE Encounter Template Text not used by [place] Assessments - Encounter Diagnoses This section includes the primary and secondary diagnoses documented for the Encounter. Date/Time Primary/Secondary Diagnosis Diagnosis Name Provider Source Jun 15, 2024 03:34 PM PRIMARY Post-traumatic stress disorder, unspecified MARK[facility] Plan of Treatment: Future Appointments (+ 6 months) and Future Tests (+/- 45 days) The Plan of Treatment section includes future care activities for the patient from all VA treatmentfa[facility] health caldwellities. This section includes future appointments and future orders which are active, pending or scheduled. Future Appointments This section includes appointments that were scheduled to occur 6 months from the date of the Encounter, up to a maximum of 20 appointments. The data comes from all [place] treatment facilities. Appointment Date/Time Appointment Type Appointme nt Facility Name Jun 22, 2024 02:00 PM AMBULATORY - PS[facility]IATRY [facility] [place] [facility] Jul 13, 2024 02:00 PM AMBULATORY - PS[facility]CHIATRY [facility] [place] [facility] Jul 13, 2024 02:30 PM AMBULATORY - REHAB MEDICIN E [facility] [place] [facility] Jul 16, 2024 07:15 AM AMBULATORY - NONE [facility] [place] [facility] Jul 20, 2024 02:00 PM AMBULATORY - PSYCHIATRY [facility] [place] [facility] Jul 27, 2024 02:00 PM AMBULATORY - PSYCHIATRY [facility] [place] [facility] Aug 03, 2024 02:00 PM AMBULATORY - PSYCHIATRY [facility] [place] [facility] Aug 24, 2024 02:00 PM AMBULATORY - PSYCHIATRY [facility] [place] [facility] Aug 31, 2024 02:00 PM AMBULATORY - PSYCHIATRY [facility] [place] [facility] Sep 08, 2024 08:00 AM AMBULATORY - MEDICINE [facility] [place] [facility] Sep 08, 2024 09:00 AM AMBULATORY - PSYCHIATRY [facility] [place] [facility] Sep 14, 2024 02:00 PM AMBULATORY - PSYCHIATRY [facility] [place] [facility] Sep 21, 2024 02:00 PM AMBULATORY - PSYCHIATRY [facility] [place] [facility] Oct 05, 2024 02:00 PM AMBULATORY - PSYCHIATRY [facility] [place] [facility] Oct 12, 2024 02:00 PM AMBULATORY - PSYCHIATRY [facility] [place] [facility] Oct 19, 2024 02:00 PM AMBULATORY - PSYCHIATRY [facility] [place] [facility] Oct 27, 2024 11:45 AM AMBULATORY - PSYCHIATRY [facility] [place] [facility] Nov 02, 2024 02:00 PM AMBULATORY - PSYCHIATRY [place] [facility] [place] [facility] Nov 23, 2024 02:00 PM AMBULATORY - PSYCHIATRY [facility] [place] [facility] Social History: Smoking Status (Most current) [...] took place. Date/Time Current Smoking Status Comment [facility] it March 09, 2024 09:00 AM VA-TOBACCO FORMER USER [place] [facility] [place] [facility] Tobacco Use History This section includes a history of the smoking, or tobacco-related health factors, that were collected on or before the date of the Encounter. The data comes from the [place] facility where the Encounter took place. Date/Time Smoking Status/Tobac co Use Comment Facility March 09, 2024 09:00 AM VA-TOBACCO QUIT 15 YRS OR MORE [facility] [place] [facility] March 18, 2023 02:30 PM VA-TOBACCO FORMER USER [facility] [place] [facility] March 18, 2023 02:30 PM VA-TOBACCO QUIT 15 YRS OR MORE [facility] [place] [facility] Jan 11, 2022 08:30 AM VA-TOBACCO FORMER USER [facility] [place] [facility] Jan 11, 2022 08:30 AM VA-TOBACCO QUIT 15 YRS OR MORE [facility] [place] [facility] Dec 26, 2020 09:00 AM VA-TOBACCO FORMER USER [facility] [place] [facility] Dec 26, 2020 09:00 AM VA-TOBACCO QUIT 15 YRS OR MORE [facility] [place] [facility] Dec 08, 2019 09:16 AM VA-TOBACCO FORMER USER [facility] [place] [facility] Dec 08, 2019 09:16 AM VA-TOBACCO QUIT 15 YRS OR MORE [facility] [place] [facility] Oct 14, 2018 02:56 PM VA-TOBACCO FORMER USER [facility] [place] [facility] Oct 14, 2018 02:56 PM VA-TOBACCO QUIT 15 YRS OR MORE [facility] Dec 12, 2017 09:20 AM QUIT TOBACCO USE > 7 YEARS AGO quit > 30 yrs ( 2-3 pks a day) [facility] Advance Directives: All historical and current [...] Source Feb 09, 2019 ADVANCE DIRECTIVE TIFFANIEVAN [facility] Feb 08, 2019 ADVANCE DIRECTIVE TROY BRINKERINE ZEV Sierra [facility] Encounter Notes: All associated encounter notes This section contains the clinical notes associated to the Encounter. Date/Time Encounter Note(s) Provider Source Jun 15, 2024 02:00 PM SOCIAL WORK GROUP COUNSELING NOTE: LOCAL TITLE: SOCIAL WORK GROUP NOTE STANDARD TITLE: SOCIAL WORK GROUP COUNSELING NOTE DATE OF NOTE: JUN 15, 2024@14:00 ENTRY DATE: JUN 15, 2024@15:24:22 AUTHOR: MANDY FLORES EXP COSIGNER: URGENCY: STATUS: COMPLETED This was a 60-minute supportive psychotherapy group for [place] Veterans with PTSD. 10 members were present today. Topics discussed today included: - grief and loss. Members discussed how they express grief, the different types of grief, and how even if one isn't able to cry it doesn't mean they aren't grieving. Members shared recent losses of family or other veterans. - health issues of various members and their loved ones. Changes in healthcare nationally, as well as some of the challenges with healthcare were discussed. - recent activities of daily living. Members provided one another support and feedback. Next group will be 06/22/2024 was attentive and participatory, particularly regarding caring for a family member who is ill. /gio/ MANDY FLORES MOVIE SHOT CAMERA OPERATOR CLINICAL SORTING SUPERVISOR Signed: 06/15/2024 15:41 MANDY FLORES [facility]
--- OUTSIDE RECORDS SUMMARY | 2024-11-02 06:41 | XMS_ITS ---
Author Name [place] Address [address] [place] [id number] Care Team Providers Care Collision Repairer Name Role Phone YANETH JOE Primary Care [...] Policy 's Name Patient's Relationship to Policy [facility] ([facility]) MEDICARE ADVANTAGE [facility] ([facility] Oct 28, 2019 [id number] IVANA CAM PATIENT Selected Encounter This section includes the information on record at [place] for the Encounter. Date/Time Encounter Type Encounter Description Reason Provider Source Jul 16, 2024 07:15 AM CASE [facility] DENTAL ICD-10-CM K03.6 Deposits [accretions] on teeth BELIRAM MOORE HDA E Encounter Template Text not used by [place] Assessments - Encounter Diagnoses This section includes the primary and secondary diagnoses documented for the Encounter. Date/Time Primary/Secondary Diagnosis Diagnosis Name Provider Source Jul 16, 2024 08:12 AM PRIMARY Deposits [accretions] on teeth BELYSHEIRAM Esquivel HDA [facility] [place] [facility] Plan of Treatment: Future Appointments (+ 6 months) and Future Tests (+/- 45 days) The Plan of Treatment section includes future care activities for the patient from all VA treatment[facility] medical center[facility]. This section includes future appointments and future orders which are active, pending or scheduled. Future Appointments This section includes appointments that were scheduled to occur 6 months from the date of the Encounter, up to a maximum of 20 appointments. The data comes from all [place] treatment facilities. Appointment Date/Time Appointment Type Appointme nt Facility Name Jul 20, 2024 02:00 PM AMBULATORY - PSYCHIATRY [facility] [place] [facility] Jul 27, 2024 02:00 PM AMBULATORY - PSYCHIATRY [facility] [place] [facility] Aug 03, 2024 02:00 PM AMBULATORY - PSYCHIATRY [facility] [place] [facility] Aug 24, 2024 02:00 PM AMBULATORY - PSYCHIATRY [facility] [place] [facility] Aug 31, 2024 02:00 PM AMBULATORY - PSYCHIATRY [facility] [place] [facility] Sep 08, 2024 08:00 AM AMBULATORY - MEDICINE [facility] [place] [facility] Sep 08, 2024 09:00 AM AMBULATORY - PSYCHIATRY [facility] [place] [facility] Sep 14, 2024 02:00 PM AMBULATORY - PSYCHIATRY [facility] [place] [facility] Sep 21, 2024 02:00 PM AMBULATORY - PSYCHIATRY [facility] [place] [facility] Oct 05, 2024 02:00 PM AMBULATORY - PSYCHIATRY [facility] [place] [facility] Oct 12, 2024 02:00 PM AMBULATORY - PSYCHIATRY [facility] [place] [facility] Oct 19, 2024 02:00 PM AMBULATORY - PSYCHIATRY [facility] [place] [facility] Oct 27, 2024 11:45 AM AMBULATORY - PSYCHIATRY [facility] [place] [facility] Nov 02, 2024 02:00 PM AMBULATORY - PSYCHIATRY [facility] [place] [facility] Nov 23, 2024 02:00 PM AMBULATORY - PSYCHIATRY [facility] [place] [facility] Dec 29, 2024 08:30 AM AMBULATORY - NONE [facility] [place] [facility] Jan 12, 2025 07:30 AM AMBULATORY - NONE [facility] [place] [facility] Social History: Smoking Status (Most current) and Tobacco Use (All prior to encounter date) This section includes the most current, and the historical, smoking and tobacco- related health factors from the [place] facility where the Encounter took place. Current Smoking Status This section includes the most current smoking, or tobacco-related health factor, from the [place] facility where the Encounter took place. Date/Time Current Smoking Status Comment [facility] March 09, 2024 09:00 AM VA-TOBACCO FORMER USER [place] [facility] [place] [facility] Tobacco Use History This section includes a history of the smoking, or tobacco-related health factors, that were collected on or before the date of the Encounter. The data comes from the [place] facility where the Encounter took place. Date/Time Smoking Status/Tobac co Use Comment Facility March 09, 2024 09:00 AM VA-TOBACCO QUIT 15 YRS OR MORE [facility] [place] [facility] March 18, 2023 02:30 PM VA-TOBACCO FORMER USER [facility] [place] [facility] March 18, 2023 02:30 PM VA-TOBACCO QUIT 15 YRS OR MORE [facility] [place] [facility] Jan 11, 2022 08:30 AM VA-TOBACCO FORMER USER [facility] [place] [facility] Jan 11, 2022 08:30 AM VA-TOBACCO QUIT 15 YRS OR MORE [place] [facility] [place] [facility] Dec 26, 2020 09:00 AM VA-TOBACCO FORMER USER [facility] [place] [facility] Dec 26, 2020 09:00 AM VA-TOBACCO QUIT 15 YRS OR MORE [facility] [place] [facility] Dec 08, 2019 09:16 AM VA-TOBACCO FORMER USER [facility] [place] [facility] Dec 08, 2019 09:16 AM VA-TOBACCO QUIT 15 YRS OR MORE [facility] [place] [facility] Oct 14, 2018 02:56 PM VA-TOBACCO FORMER USER [facility] [place] [facility] Oct 14, 2018 02:56 PM VA-TOBACCO QUIT 15 YRS OR MORE [facility] [place] [facility] Dec 12, 2017 09:20 AM QUIT TOBACCO USE > 7 YEARS AGO quit > 30 yrs ( 2-3 pks a day) [facility] Advance Directives: All historical and current Section Date Range: From patient's date of to the date document was created. This section includes ALL of a patient's completed or amended [place] Advance and Rescinded Directives. The entries below indicate that a directive exists for the patient, but an actual copy is not included with this document. The data comes from all [place] facilities. Date Advance Directives Provider Source Feb 09, 2019 ADVANCE DIRECTIVE VAN MORENO [facility] Feb 08, 2019 ADVANCE DIRECTIVE BELEMSAMM ZEV Esquivel [facility] Encounter Notes: All associated encounter notes This section contains the clinical notes associated to the Encounter. Date/Time Encounter Note(s) Provider Source Jul 16, 2024 08:10 AM DENTISTRY NOTE: LOCAL TITLE: DENTAL NOTE STANDARD TITLE: DENTISTRY NOTE DATE OF NOTE: JUL 16, 2024@08:10 ENTRY DATE: JUL 16, 2024@08:12:32 AUTHOR: PATEL AGOSTO EXP COSIGNER: URGENCY: STATUS: COMPLETED Patient Name: HIGINIO CAM JR, : 1950, Age: 74 Visit: S: Jul 16, 2024@07:15 [facility] DENTAL [facility] 2 AM. Primary PCE Diagnosis: K03.6 (Deposits [accretions] [...] for treatment LAST RADIOGRAPHS: PANO 10/15 BWX 01/18 NEW RADIOGRAPHS: not due SOFT TISSUE SCREENING: no abnormalities noted EXAMINATION:not due ORAL HYGIENE ASSESSMENT: plaque moderate stain light PERIODONTAL ASSESSMENT: calculus moderate inflamation light bop light probing deepth 2-4 mm recession general REVIEWED ORAL HEALTH REPORT: CARIES RISK: moderate GUM DISEASE: n/a ORAL CANCER RISK: n/a DENTAL TREATMENT PROVIDED: PROPHYLAXIS: hand scaling, piezo, ukrainian TOPICAL FLUORIDE APPLICATION - [place] pre post procedular rinse 30 sec ORAL HYGIENE INSTRUCTIONS GIVEN TO PATIENT: [place] your teeth at least twice a day using a gentle circular motion. Use a fluoride toothpaste. Use a soft-bristled brush to prevent damage to your gums. Remember to brush your tongue to remove bacteria. Consider using a mouthwash with fluoride. Replace your toothbrush or toothbrush head every 3 to 4 months Drink a glass of water after youve eaten or had a sugary drink to help remove any sugar or food particles on your teeth and gums. Eat a well-balanced diet that includes plenty of fruits and vegetables, and limit your consumption of sugary foods and beverages. Visit your dentist twice a year for routine cleanings and checkups. DISPOSITION: 6 MONTHS RECARE Dental Alerts: Per current ADA and AAOS guidelines, antibiotic prophylaxis prior to dental procedures not routinely indicated. Previously took Antibiotic Premed: AMOXICILLIN 2000mg due to 2004 hip replacement Oral Health Assessment Findings: Plaque Index: 1 - Slight Xerostomia: 2 - Moderate Caries Risk: 3 - High Oral Hygiene: 3 - Poor - - - - - - - - - - - - - - - - - - - - - - - - - - - - - - NV: 6 MONTHS RECARE shani 4 bwx /igo/ PATEL AGOSTO RDH [facility], DENTAL SERVICE Signed: 07/16/2024 08:12 PATEL AGOSTORL [facility]
--- OUTSIDE RECORDS SUMMARY | 2024-11-02 06:41 | XMS_ITS ---
Author Name [place] Organization [place] Address [address] [place] [id number] Care Team Providers Care Head Porter Name Role Phone YANETH JOE Primary Care [...] Name Patient's Relationship to Policy [facility] (WNR) MEDICARE ADVANTAGE [facility] (WNR) Oct 28, 2019 [id number] IVANA CAM JONAS PATIENT Selected Encounter This section includes the information on record at [place] for the Encounter. Date/Time Encounter Type Encounter Description Reason Provider Source Jun 22, 2024 02:00 PM GROUP PSYCHOTHERAPY MENTAL [facility]ALTH CLINIC-GROUP ICD-10-CM F43.10 Post-traumatic stress disorder, unspecified MARK,ZEUS IE IHE Encounter Template Text not used by [place] Assessments - Encounter Diagnoses This section includes the primary and secondary diagnoses documented for the Encounter. Date/Time Primary/Secondary Diagnosis Diagnosis Name Provider Source Jun 22, 2024 04:17 PM PRIMARY Post-traumatic stress disorder, unspecified MARK[facility] Plan of Treatment: Future Appointments (+ 6 months) and Future Tests (+/- 45 days) The Plan of Treatment section includes future care activities for the patient from all [facility]. This section includes future appointments and future orders which are active, pending or scheduled. Future Appointments This section includes appointments that were scheduled to occur 6 months from the date of the Encounter, up to a maximum of 20 appointments. The data comes from all [place] treatment facilities. Appointment Date/Time Appointment Type Appointme nt Facility Name Jul 13, 2024 02:00 PM AMBULATORY - PSYCHIATRY [facility] [place] [facility] Jul 13, 2024 02:30 PM AMBULATORY - REHAB MEDICIN E [facility] [place] [facility] Jul 16, 2024 07:15 AM AMBULATORY - NONE [facility] [place] [facility] Jul 20, 2024 02:00 PM AMBULATORY - PSYCHIATRY [facility] [place] [facility] Jul 27, 2024 02:00 PM AMBULATORY - PSYCHIATRY [facility] [place] [facility] Aug 03, 2024 02:00 PM AMBULATORY - PSYCHIATRY [facility] [place] [facility] Aug 24, 2024 02:00 PM AMBULATORY - PSYCHIATRY [facility] [place] [facility] Aug 31, 2024 02:00 PM AMBULATORY - PSYCHIATRY [facility] [place] [facility] Sep 08, 2024 08:00 AM AMBULATORY - MEDICINE [facility] [place] [facility] Sep 08, 2024 09:00 AM AMBULATORY - PSYCHIATRY [facility] [place] [facility] Sep 14, 2024 02:00 PM AMBULATORY - PSYCHIATRY [facility] [place] [facility] Sep 21, 2024 02:00 PM AMBULATORY - PSYCHIATRY [facility] [place] [facility] Oct 05, 2024 02:00 PM AMBULATORY - PSYCHIATRY [facility] [place] [facility] Oct 12, 2024 02:00 PM AMBULATORY - PSYCHIATRY [facility] [place] [facility] Oct 19, 2024 02:00 PM AMBULATORY - PSYCHIATRY [facility] [place] [facility] Oct 27, 2024 11:45 AM AMBULATORY - PSYCHIATRY [facility] [place] [facility] Nov 02, 2024 02:00 PM AMBULATORY - PSYCHIATRY [facility] [place] [facility] Nov 23, 2024 02:00 PM AMBULATORY - PSYCHIATRY [place] [facility] [facility] Social History: Smoking Status (Most current) and Tobacco Use (All prior to encounter date) This section includes the most current, and the historical, smoking and tobacco- related health factors from the [place] facility where the Encounter took place. Current Smoking Status This section includes the most current smoking, or tobacco-related health factor, from the [place] facility where the Encounter took place. Date/Time Current Smoking Status Comment Facil it March 09, 2024 09:00 AM VA-TOBACCO QUIT 15 YRS OR MORE [place] [facility] [place] [facility] Tobacco Use History This section includes a history of the smoking, or tobacco-related health factors, that were collected on or before the date of the Encounter. The data comes from the [place] facility where the Encounter took place. Date/Time Smoking Status/Tobac co Use Comment Facility March 09, 2024 09:00 AM VA-TOBACCO QUIT 15 YRS OR MORE [place] [facility] [place] [facility] March 18, 2023 02:30 PM VA-TOBACCO FORMER USER [place] [facility] [facility] March 18, 2023 02:30 PM VA-TOBACCO QUIT 15 YRS OR MORE [place] [facility] [facility] Jan 11, 2022 08:30 AM VA-TOBACCO FORMER USER [place] [facility] [facility] Jan 11, 2022 08:30 AM VA-TOBACCO QUIT 15 YRS OR MORE [place] [facility] [facility] Dec 26, 2020 09:00 AM VA-TOBACCO FORMER USER [place] [facility] [facility] Dec 26, 2020 09:00 AM VA-TOBACCO QUIT 15 YRS OR MORE [facility] [place] [facility] Dec 08, 2019 09:16 AM VA-TOBACCO FORMER USER [facility] [place] [facility] Dec 08, 2019 09:16 AM VA-TOBACCO QUIT 15 YRS OR MORE [facility] [place] [facility] Oct 14, 2018 02:56 PM VA-TOBACCO FORMER USER [facility] [place] [facility] Oct 14, 2018 02:56 PM VA-TOBACCO QUIT 15 YRS OR MORE [place] [facility] [place] [facility] Dec 12, 2017 09:20 AM QUIT TOBACCO USE > 7 YEARS AGO quit > 30 yrs ( 2-3 pks a day) [facility] Advance Directives: All historical and current Section Date Range: From patient's date of to the date document was created. This section includes ALL of a patient's completed or amended [place] Advance and Rescinded Directives. The entries below indicate that a directive exists for the patient, but an actual copy is not included with this document. The data comes from all [place] facilities. Date Advance Directives Provider Source Feb 09, 2019 ADVANCE DIRECTIVE VAN MORENO [facility] Feb 08, 2019 ADVANCE DIRECTIVE SONALIPRIYASAMM NOGUERA V A [facility] Encounter Notes: All associated encounter notes This section contains the clinical notes associated to the Encounter. Date/Time Encounter Note(s) Provider Source Jun 22, 2024 02:00 PM SOCIAL WORK GROUP COUNSELING NOTE: LOCAL TITLE: SOCIAL WORK GROUP NOTE STANDARD TITLE: SOCIAL WORK GROUP COUNSELING NOTE DATE OF NOTE: JUN 22, 2024@14:00 ENTRY DATE: JUN 22, 2024@16:10:45 AUTHOR: MANDY FLORES EXP COSIGNER: URGENCY: STATUS: COMPLETED This was a 60-minute supportive psychotherapy group for [place] Veterans with PTSD. 10 members were present today. Topics discussed today included: - grief and loss. Members discussed recent losses since the last group, as well as further discussion on how they express and move through grief. Support and acceptance of different expressions of grief were shared. - health issues of various members and their loved ones. Latest medical complications were shared. - recent activities of daily living. Members provided one another support and feedback. Next group will be 07/06/2024 Sims was attentive and participatory. No new problems or concerns reported. /gio/ MANDY FLORES [facility] CLINICAL FISH TENDER Signed: 06/22/2024 16:18 MANDY FLORES [facility]
--- OUTSIDE RECORDS SUMMARY | 2024-11-02 06:41 | XMS_ITS ---
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 Date/Time Encounter Type Encounter Description Reason Provider Source Jul 13, 2024 02:30 PM HEARING AID REPAIR/MODIFYIN G AUDIOLOGY ICD-10-CM Z46.1 Encounter for fitting and adjustment of hearing aid CHARLA GARRISON Encounter Template Text not used by [place] Assessments - Encounter Diagnoses This section includes the primary and secondary diagnoses documented for the Encounter. Date/Time Primary/Secondary Diagnosis Diagnosis Name Provider Source Jul 13, 2024 02:51 PM PRIMARY Encounter for fitting and adjustment of hearing aid [facility] [place] [facility] Jul 13, 2024 02:51 PM SECONDARY Sensorineural hearing loss, bilateral PAULINE GARRISON [facility] [place] [facility] Plan of Treatment: Future Appointments (+ 6 [...] [facility] [place] [facility] Jul 20, 2024 02:00 PM AMBULATORY - PSYCHIATRY [facility] [place] [facility] Jul 27, 2024 02:00 PM AMBULATORY - PSYCHIATRY [facility] [place] [facility] Aug 03, 2024 02:00 PM AMBULATORY - PSYCHIATRY [facility] [place] [facility] Aug 24, 2024 02:00 PM AMBULATORY - PSYCHIATRY [facility] [place] [facility] Aug 31, 2024 02:00 PM AMBULATORY - PSYCHIATRY [facility] [place] [facility] Sep 08, 2024 08:00 AM AMBULATORY - MEDICINE [facility] [place] [facility] Sep 08, 2024 09:00 AM AMBULATORY - PSYCHIATRY [facility] [place] [facility] Sep 14, 2024 02:00 PM AMBULATORY - PSYCHIATRY [facility] [place] [facility] Sep 21, 2024 02:00 PM AMBULATORY - PSYCHIATRY [facility] [place] [facility] Oct 05, 2024 02:00 PM AMBULATORY - PSYCHIATRY [facility] [place] [facility] Oct 12, 2024 02:00 PM AMBULATORY - PSYCHIATRY [facility] [place] [facility] Oct 19, 2024 02:00 PM AMBULATORY - PSYCHIATRY [facility] [place] [facility] Oct 27, 2024 11:45 AM AMBULATORY - PSYCHIATRY [facility] [place] [facility] Nov 02, 2024 02:00 PM AMBULATORY - PSYCHIATRY [facility] [place] [facility] Nov 23, 2024 02:00 PM AMBULATORY - PSYCHIATRY [facility] [place] [facility] Dec 29, 2024 08:30 AM AMBULATORY - NONE [facility] [place] [facility] Social History: Smoking Status (Most current) and [...] 09, 2024 09:00 AM VA-TOBACCO FORMER USER [facility] [place] [facility] Tobacco Use History This section includes a history of the smoking, or tobacco-related health factors, that were collected on or before the date of the Encounter. The data comes from the [place] facility where the Encounter took place. Date/Time Smoking Status/Tobac co Use Comment Facility March 09, 2024 09:00 AM VA-TOBACCO QUIT 15 YRS OR MORE [facility] [place] [facility] March 18, 2023 02:30 PM VA-TOBACCO FORMER USER [facility] [place] [facility] March 18, 2023 02:30 PM VA-TOBACCO QUIT 15 YRS OR MORE [facility] [place] [facility] Jan 11, 2022 08:30 AM VA-TOBACCO FORMER USER [facility] [place] [facility] Jan 11, 2022 08:30 AM VA-TOBACCO QUIT 15 YRS OR MORE [facility] [place] [facility] Dec 26, 2020 09:00 AM VA-TOBACCO FORMER USER [facility] [place] [facility] Dec 26, 2020 09:00 AM VA-TOBACCO QUIT 15 YRS OR MORE [facility] [place] [facility] Dec 08, 2019 09:16 AM VA-TOBACCO FORMER USER [facility] [place] [facility] Dec 08, 2019 09:16 AM VA-TOBACCO QUIT 15 YRS OR MORE [facility] [place] [facility] Oct 14, 2018 02:56 PM VA-TOBACCO FORMER USER [facility] [place] [facility] Oct 14, 2018 02:56 PM VA-TOBACCO QUIT 15 YRS OR MORE [facility] [place] Dec 12, 2017 09:20 AM QUIT TOBACCO USE > 7 YEARS AGO quit > 30 yrs ( 2-3 pks a day) [facility] Advance Directives: All historical and current [...] Feb 09, 2019 ADVANCE DIRECTIVE VAN MORENO [facility] Feb 08, 2019 ADVANCE DIRECTIVE SAMM BRINK V [facility] Encounter Notes: All associated encounter notes This section contains the clinical notes associated to the Encounter. Date/Time Encounter Note(s) Provider Source Jul 13, 2024 02:46 PM AUDIOLOGY E & M NO TE: [facility] TITLE: AUDIOLOGY CLINIC STANDARD TITLE: AUDIOLOGY E & M NOTE DATE OF NOTE: JUL 13, 2024@14:46 ENTRY DATE: JUL 13, 2024@14:46:17 AUTHOR: CHARLA GARRISON EXP COSIGNER: URGENCY: STATUS: COMPLETED Dx: Sensorineural hearing loss, bilateral was seen today for a hearing aid follow-up appointment. He was issued bilateral Geovany Evolv AI RICs on 03/18/23. reports his right hearing aid recently stopped working. Initial listening check revealed 's right hearing aid was weak and distorted. Both hearing aids were cleaned and checked. All debris was removed from the microphones, and the microphone covers were replaced. The right credit adjuster and left wax guard were replaced. Listening check post maintenance was positive for both hearing aids. will contact the clinic as needed. /gio/ Robert Edward, [facility] Academic Guidance Specialist Signed: 07/13/2024 14:51 CHARLA GARRISON [facility]
--- OUTSIDE RECORDS SUMMARY | 2024-11-02 06:41 | XMS_ITS | Encounter Summary ---
Author Name Department of [place] Organization Department [place] Address [address] [place] [id number] Care Team Providers Care Cold Roll Packer Sheet Iron Name Role Phone YANETH JOE Primary Care [...] 's Name Patient's Relationship to Policy [facility] (WNR) MEDICARE ADVANTAGE [facility] (R) Oct 28, 2019 [id number] IVANA CAM JONAS PATIENT Selected Encounter This section includes the information on record at [place] for the Encounter. Date/Time Encounter Type Encounter Description Reason Provider Source Jul 27, 2024 02:00 PM GROUP PSYCHOTHERAPY [facility] ICD-10-CM F43.10 Post-traumatic stress disorder, unspecified MARK,ZEUS IE IHE Encounter Template Text not used by [place] Assessments - Encounter Diagnoses This section includes the primary and secondary diagnoses documented for the Encounter. Date/Time Primary/Secondary Diagnosis Diagnosis Name Provider Source Jul 27, 2024 04:13 PM PRIMARY Post-traumatic stress disorder, unspecified MARK[facility] Plan of Treatment: Future Appointments (+ 6 months) and Future Tests (+/- 45 days) The Plan of Treatment section includes future care activities for the patient from all [place] [facility]. This section includes future appointments and future orders which are active, pending or scheduled. Future Appointments This section includes appointments that were scheduled to occur 6 months from the date of the Encounter, up to a maximum of 20 appointments. The data comes from all [place] treatment facilities. Appointment Date/Time Appointment Type Appointme nt Facility Name Aug 03, 2024 02:00 PM AMBULATORY - PSYCHIATRY [facility] [place] [facility] Aug 24, 2024 02:00 PM AMBULATORY - PSYCHIATRY [facility] [place] [facility] Aug 31, 2024 02:00 PM AMBULATORY - PSYCHIATRY [facility] [place] [facility] Sep 08, 2024 08:00 AM AMBULATORY - MEDICINE [facility] [place] [facility] Sep 08, 2024 09:00 AM AMBULATORY - PSYCHIATRY [facility] [place] [facility] Sep 14, 2024 02:00 PM AMBULATORY - PSYCHIATRY [facility] [place] [facility] Sep 21, 2024 02:00 PM AMBULATORY - PSYCHIATRY [facility] [place] [facility] Oct 05, 2024 02:00 PM AMBULATORY - PSYCHIATRY [facility] [place] [facility] Oct 12, 2024 02:00 PM AMBULATORY - PSYCHIATRY [facility] [place] [facility] Oct 19, 2024 02:00 PM AMBULATORY - PSYCHIATRY [facility] [place] [facility] Oct 27, 2024 11:45 AM AMBULATORY - PSYCHIATRY [facility] [place] [facility] Nov 02, 2024 02:00 PM AMBULATORY - PSYCHIATRY [facility] [place] [facility] Nov 23, 2024 02:00 PM AMBULATORY - PSYCHIATRY [facility] [place] [facility] Dec 29, 2024 08:30 AM AMBULATORY - NONE [facility] [place] [facility] Jan 12, 2025 07:30 AM AMBULATORY - NONE [facility] [place] [facility] Active, Pending, and Scheduled Orders This section includes a listing of several types of active, pending, and scheduled orders, including clinic medications orders, diagnostic test orders, procedure orders and consult orders; where the start date of the order is 45 days before the date of the Encounter or 45 days after the date of theEncounter. The data comes from all [place] treatment facilities. Test Date/Time Test Type Test Details Facility Name Sep 08, 2024 08:25 AM Consult Order COMMUNITY CARE-UROLOGY Cons Market Superintendent's Choice [place] [facility] [place] [facility] Social History: Smoking Status (Most current) and Tobacco Use (All prior to encounter date) This section includes the most current, and the historical, smoking and tobacco- related health factors from the [place] facility where the Encounter took place. Current Smoking Status This section includes the most current smoking, or tobacco-related health factor, from the [place] facility where the Encounter took place. Date/Time Current Smoking Status Comment Facil it March 09, 2024 09:00 AM VA-TOBACCO QUIT 15 YRS OR MORE [facility] Tobacco Use History This section includes a history of the smoking, or tobacco-related health factors, that were collected on or before the date of the Encounter. The data comes from the [place] facility where the Encounter took place. Date/Time Smoking Status/Tobac co Use Comment Facility March 09, 2024 09:00 AM VA-TOBACCO QUIT 15 YRS OR MORE [place] [facility] [place] [facility] March 18, 2023 02:30 PM VA-TOBACCO FORMER USER [place] [facility] [place] [facility] March 18, 2023 02:30 PM VA-TOBACCO QUIT 15 YRS OR MORE [facility] [place] [facility] Jan 11, 2022 08:30 AM VA-TOBACCO FORMER USER [facility] [place] [facility] Jan 11, 2022 08:30 AM VA-TOBACCO QUIT 15 YRS OR MORE [place] [facility] [place] [facility] Dec 26, 2020 09:00 AM VA-TOBACCO FORMER USER [place] [facility] [place] [facility] Dec 26, 2020 09:00 AM VA-TOBACCO QUIT 15 YRS OR MORE [facility] [place] [facility] Dec 08, 2019 09:16 AM VA-TOBACCO FORMER USER [facility] [place] [facility] Dec 08, 2019 09:16 AM VA-TOBACCO QUIT 15 YRS OR MORE [place] [facility] [place] [facility] Oct 14, 2018 02:56 PM VA-TOBACCO FORMER USER [facility] [place] [facility] Oct 14, 2018 02:56 PM VA-TOBACCO QUIT 15 YRS OR MORE [facility] Dec 12, 2017 09:20 AM QUIT TOBACCO USE > 7 YEARS AGO quit > 30 yrs ( 2-3 pks a day) [facility] Advance Directives: All historical and current Section Date Range: From patient's date of to the date document was created. This section includes ALL of a patient's completed or amended [place] Advance and Rescinded Directives. The entries below indicate that a directive exists for the patient, but an actual copy is not included with this document. The data comes from all [place] facilities. Date Advance Directives Provider Source Feb 09, 2019 ADVANCE DIRECTIVE TIFFANIEVAN Dow [facility] Feb 08, 2019 ADVANCE DIRECTIVE BELEMSAMM ZEV Sierra [facility] Encounter Notes: All associated encounter notes This section contains the clinical notes associated to the Encounter. Date/Time Encounter Note(s) Provider Source Jul 27, 2024 03:00 PM SOCIAL WORK GROUP COUNSELING NOTE: LOCAL TITLE: SOCIAL WORK GROUP NOTE STANDARD TITLE: SOCIAL WORK GROUP COUNSELING NOTE DATE OF NOTE: JUL 27, 2024@15:00 ENTRY DATE: JUL 27, 2024@16:03:44 AUTHOR: MANDY FLORES COSIGNER: URGENCY: STATUS: COMPLETED [...] with this member outside of group. - gambling, including some of the difficulties with it (i.e. frequent loss of money despite wins). - the role of forgiveness and the reasons for trying to forgive someone, and the challenges with being able to do so. Members provided one another support and feedback. Next group will be 08/03/2024 [place] reported he was doing well. He was attentive and participatory. /gio/ MANDY FLORES [facility] CLINICAL ROAST MASTER Signed: 07/27/2024 16:14 MANDY FLORES [facility]
--- OUTSIDE RECORDS SUMMARY | 2024-11-02 06:41 | XMS_ITS | Encounter Summary ---
Author Name Department of Veter[place] ns Affairs [place] Organization Department of [place] Address [address] [place] [id number] Care Team Providers Care Railroad Car Truck Builder Name Role Phone YANETH JOE Primary Care [...] Name Patient's Relationship to Policy [facility] (WNR) MEDICARE ADVANTAGE [facility] (WNR) Oct 28, 2019 [id number] TUTU,JE JONAS PATIENT Selected Encounter This section includes the information on record at [place] for the Encounter. Date/Time Encounter Type Encounter Description Reason Provider Source Jul 20, 2024 02:00 PM GROUP PSYCHOTHERAPY [facility]-GROUP ICD-10-CM F43.10 Post-traumatic stress disorder, unspecified MARK,ZEUS IE IHE Encounter Template Text not used by [place] Assessments - Encounter Diagnoses This section includes the primary and secondary diagnoses documented for the Encounter. Date/Time Primary/Secondary Diagnosis Diagnosis Name Provider Source Jul 21, 2024 08:04 AM PRIMARY Post-traumatic stress disorder, unspecified [facility] Plan of Treatment: Future Appointments (+ 6 [...] Appointment Type Appointme nt Facility Name Jul 27, 2024 02:00 PM AMBULATORY - PS[facility]IATRY [facility] [place] [facility] Aug 03, 2024 02:00 PM AMBULATORY - PSYCHIATRY [facility] [place] [facility] Aug 24, 2024 02:00 PM AMBULATORY - PSYCHIATRY [facility] [place] [facility] Aug 31, 2024 02:00 PM AMBULATORY - PSYCHIATRY [facility] [place] [facility] Sep 08, 2024 08:00 AM AMBULATORY - MEDICINE [facility] [place] [facility] Sep 08, 2024 09:00 AM AMBULATORY - PSYCHIATRY [facility] [place] [facility] Sep 14, 2024 02:00 PM AMBULATORY - PSYCHIATRY [facility] [place] [facility] Sep 21, 2024 02:00 PM AMBULATORY - PSYCHIATRY [facility] [place] [facility] Oct 05, 2024 02:00 PM AMBULATORY - PSYCHIATRY [facility] [place] [facility] Oct 12, 2024 02:00 PM AMBULATORY - PSYCHIATRY [facility] [place] [facility] Oct 19, 2024 02:00 PM AMBULATORY - PSYCHIATRY [facility] [place] [facility] Oct 27, 2024 11:45 AM AMBULATORY - PSYCHIATRY [facility] [place] [facility] Nov 02, 2024 02:00 PM AMBULATORY - PSYCHIATRY [facility] [place] [facility] Nov 23, 2024 02:00 PM AMBULATORY - PSYCHIATRY [facility] [place] [facility] Dec 29, 2024 08:30 AM AMBULATORY - NONE [facility] [place] [facility] Jan 12, 2025 07:30 AM AMBULATORY - NONE [facility] [place] [facility] Social History: Smoking Status (Most current) [...] VA-TOBACCO FORMER USER [facility] [place] [facility] Tobacco Use History This section includes a history of the smoking, or tobacco-related health factors, that were collected on or before the date of the Encounter. The data comes from the [place] facility where the Encounter took place. Date/Time Smoking Status/Tobac co Use Comment Facility March 09, 2024 09:00 AM VA-TOBACCO QUIT 15 YRS OR MORE [facility] [place] [facility] March 18, 2023 02:30 PM VA-TOBACCO FORMER USER [facility] [place] [facility] March 18, 2023 02:30 PM VA-TOBACCO QUIT 15 YRS OR MORE [facility] [place] [facility] Jan 11, 2022 08:30 AM VA-TOBACCO FORMER USER [facility] [place] [facility] Jan 11, 2022 08:30 AM VA-TOBACCO QUIT 15 YRS OR MORE [facility] [place] [facility] Dec 26, 2020 09:00 AM VA-TOBACCO FORMER USER [facility] [place] [facility] Dec 26, 2020 09:00 AM VA-TOBACCO QUIT 15 YRS OR MORE [facility] [place] [facility] Dec 08, 2019 09:16 AM VA-TOBACCO FORMER USER [facility] [place] [facility] Dec 08, 2019 09:16 AM VA-TOBACCO QUIT 15 YRS OR MORE [facility] [place] [facility] Oct 14, 2018 02:56 PM VA-TOBACCO FORMER USER [facility] [place] [facility] Oct 14, 2018 02:56 PM VA-TOBACCO QUIT 15 YRS OR MORE [facility] [place] [facility] Dec 12, 2017 09:20 AM QUIT TOBACCO USE > 7 YEARS AGO quit > 30 yrs ( 2-3 pks a day) [facility] [place] [facility] Advance Directives: All historical and current [...] Feb 09, 2019 ADVANCE DIRECTIVE VAN MORENO [facility] Feb 08, 2019 ADVANCE DIRECTIVE SAMM BRINK V A [facility] Encounter Notes: All associated encounter notes This section contains the clinical notes associated to the Encounter. Date/Time Encounter Note(s) Provider Source Jul 20, 2024 02:00 PM SOCIAL WORK GROUP COUNSELING NOTE: LOCAL TITLE: SOCIAL WORK GROUP NOTE STANDARD TITLE: SOCIAL WORK GROUP COUNSELING NOTE DATE OF NOTE: JUL 20, 2024@14:00 ENTRY DATE: JUL 21, 2024@07:57:14 AUTHOR: MANDY FLORES EXP COSIGNER: URGENCY: STATUS: COMPLETED This was a 60-minute supportive psychotherapy group for [employer] Veterans with PTSD. 7 members were present today. Topics discussed today included: - members discussed again the news that a longtime group member was diagnosed with terminal cancer [facility] Members provided one another support and feedback. - issues related to health and general well-being. - daily activities such as socializing, family, and volunteer work. Members discussed the importance for some to stay busy in order to support their recovery. Next group will be 07/27/2024 [place] was attentive and participatory with no new problems or concerns reported. /gio/ MANDY FLORES [facility] CLINICAL MANAGER SUSTAINABILITY Signed: 07/21/2024 08:05 MANDY FLORES [facility]
--- OUTSIDE RECORDS SUMMARY | 2024-11-02 06:41 | XMS_ITS ---
Author Name [facility] [place] [facility] [place] Address [address] [place] [address] Care Team Providers Care Clay Modeler Name Role Phone YANETH JOE Primary Care [...] Policy 's Name Patient's Relationship to Policy [facility] (WNR) MEDICARE ADVANTAGE [facility] (WNR) Oct 28, 2019 [id number] IVANA CAM PATIENT Selected Encounter This section includes the information on record at [place] for the Encounter. Date/Time Encounter Type Encounter Description Reason Pro vider Source Aug 28, 2024 11:47 AM Outpatient Encounter PRIMARY CARE/MEDICINE IHE Encounter Template Text not used by [place] Plan of Treatment: Future Appointments (+ 6 months) and Future Tests (+/- 45 days) The Plan of Treatment section includes future care activities for the patient from all [place] treatmentfacilities. This section includes future appointments and [...] - PSYCHIAT[facility] Sep 14, 2024 02:00 PM AMBULATORY - [...] [facility] Oct 12, 2024 02:00 PM AMBULATORY - [facility] [place] [facility] Oct 19, 2024 02:00 PM AMBULATORY - PS[facility]IATRY [facility] [place] [facility] Oct 27, 2024 11:45 AM AMBULATORY - PS[facility]IATRY [facility] [place] [facility] Nov 02, 2024 02:00 PM AMBULATORY - PS[facility]CHIATRY [facility] [place] [facility] Nov 23, 2024 02:00 PM AMBULATORY - PS[facility]CHIATRY [facility] [place] [facility] Dec 29, 2024 08:30 AM AMBULATORY - NONE [facility] [place] [facility] Jan 12, 2025 07:30 AM AMBULATORY - NONE [facility] [place] [facility] Active, Pending, and Scheduled Orders This section includes a listing of several types of active, pending, and scheduled orders, including clinic medications orders, diagnostic test orders, procedure orders and consult orders; where the start date of the order is 45 days before the date of the Encounter or 45 days after the date of theEncounter. The data comes from all [place] treatment facilities. Test Date/Time Test Type Test Details Facility Name Sep 08, 2024 08:25 AM Consult Order COMMUNITY CARE-UROLOGY Cons Hospitality Associate's Choice [facility] [place] [facility] Lab Results: +/- 30 days of the [...] Range Comment Aug 31, 2024 01:30 PM [facility] PSA Specimen Type: SERUM No comment entered. Ordering Provider: YANETH JOE Report Released Date/Time: March 09, 2024 09:50 AM Reporting Lab: [address] [address] Performing Lab: [address] [address] PSA 8.81 ng/mL H 0.00-4.00 Aug 31, 2024 01:30 PM [facility] BASIC METABOLIC PANEL (non-fasting) Specimen Type: SERUM No comment entered. Ordering Provider: YANETH JOE Report Released Date/Time: March 09, 2024 09:50 AM Reporting Lab: [address] [address] Performing Lab: [address] [address] UREA NITROGEN 16 mg/dL 7-25 GLUCOSE 106 [...] 09, 2024 09:00 AM VA-TOBACCO FORMER USER [facility] Tobacco Use History This section includes a history of the smoking, or tobacco-related health factors, that were collected on or before the date of the Encounter. The data comes from the [place] facility where the Encounter took place. Date/Time Smoking Status/Tobac co Use Comment Facility March 09, 2024 09:00 AM VA-TOBACCO QUIT 15 YRS OR MORE [place] [facility] [place] [facility] March 18, 2023 02:30 PM VA-TOBACCO FORMER USER [facility] [place] [facility] March 18, 2023 02:30 PM VA-TOBACCO QUIT 15 YRS OR MORE [place] [facility] [place] [facility] [...] AM VA-TOBACCO QUIT 15 YRS OR MORE [place] [facility] [place] [facility] Dec 08, 2019 09:16 AM VA-TOBACCO FORMER USER [place] [facility] [place] [facility] Dec 08, 2019 09:16 AM VA-TOBACCO QUIT 15 YRS OR MORE [place] [facility] [place] [facility] Oct 14, 2018 02:56 PM VA-TOBACCO FORMER USER [place] [facility] [place] [facility] Oct 14, 2018 02:56 PM VA-TOBACCO QUIT 15 YRS OR MORE [place] [facility] [place] [facility] Dec 12, 2017 09:20 AM QUIT TOBACCO USE > 7 YEARS AGO quit > 30 yrs ( 2-3 pks a day) [place] [facility] [place] [facility] Advance Directives: All historical and current [...] Feb 09, 2019 ADVANCE DIRECTIVE VAN MORENO [place] [facility] [place] [facility] Feb 08, 2019 ADVANCE DIRECTIVE SAMM BRINK [facility] Encounter Notes: All associated encounter notes This section contains the clinical notes associated to the Encounter. Date/Time Encounter Note(s) Provider Source Aug 28, 2024 11:47 AM ADMINISTRATIVE NOTE: LOCAL TITLE: ADMINISTRATIVE NOTE STANDARD TITLE: ADMINISTRATIVE NOTE DATE OF NOTE: AUG 28, 2024@11:47 ENTRY DATE: AUG 28, 2024@11:48:04 AUTHOR: GAYATRI VINCENT EXP COSIGNER: URGENCY: STATUS: COMPLETED AMSA SPOKE TO ON THE TELEPHONE AND INFORMED HIM OF UPCOMING APPT AND THAT LABWORK IS NEEDED. /gio/ GAYATRI VINCENT AMSA Signed: 08/28/2024 11:48 [facility]AYATRI VINCENT [place] [facility]
--- OUTSIDE RECORDS SUMMARY | 2024-11-02 06:42 | XMS_ITS ---
Author Name [facility] [place] [facility] [place] Address [address] [place] [id number] Care Team Providers Care Counseling Department Chair Name Role Phone YANETH JOE [...] 's Name Patient's Relationship to Policy [facility] (WNR) MEDICARE ADVANTAGE [facility] (WNR) Oct 28, 2019 [id number] IVANA CAM JONAS PATIENT Selected Encounter This section includes the information on record at [place] for the Encounter. Date/Time Encounter Type Encounter Description Reason Provider Source Sep 21, 2024 02:00 PM [facility] ICD-10-CM F43.10 Post-traumatic stress disorder, unspecified MARK,ZEUS IE IHE Encounter Template Text not used by [place] Assessments - Encounter Diagnoses This section includes the primary and secondary diagnoses documented for the Encounter. Date/Time Primary/Secondary Diagnosis Diagnosis Name Provider Source Sep 21, 2024 03:50 PM PRIMARY Post-traumatic stress disorder, unspecified [facility] Plan of Treatment: Future Appointments (+ 6 months) and Future Tests (+/- 45 days) The Plan of Treatment section includes future care activities for the patient [facility] [place] [facility] This section includes future appointments and future orders which are active, pending or scheduled. Future Appointments This section includes appointments that were scheduled to occur 6 months from the date of the Encounter, up to a maximum of 20 appointments. The data comes from all [facility] [address] Appointment Date/Time Appointment Type Appointme nt Facility Name Oct 05, 2024 02:00 PM AMBULATORY - PS[place]ATRY [place] [facility] [place] [facility] Oct 12, 2024 02:00 PM AMBULATORY - [place]ATRY [place] [facility] [place] [facility] Oct 19, 2024 02:00 PM AMBULATORY - PS[place]IATRY [place] [facility] [place] [facility] Oct 27, 2024 11:45 AM AMBULATORY - PS[place]CHIATRY [place] [facility] [place] [facility] Nov 02, 2024 02:00 PM AMBULATORY - PS[place]IATRY [place] [facility] [place] [facility] Nov 23, 2024 02:00 PM AMBULATORY - PS[place]IATRY [place] [facility] [place] [facility] Dec 29, 2024 08:30 AM AMBULATORY - NONE [place] [facility] [place] [facility] Jan 12, 2025 07:30 AM AMBULATORY - NONE [place] [facility] [place] [facility] March 09, 2025 08:30 AM AMBULATORY - MEDICINE [place] [facility] [place] [facility] Active, Pending, and Scheduled Orders This section includes a listing of several types of active, pending, and scheduled orders, including clinic medications orders, diagnostic test orders, procedure orders and consult orders; where the start date of the order is 45 days before the date of the Encounter or 45 days after the date of theEncounter. The data comes from all [facility] [address]. Test Date/Time Test Type Test Details Facility Name Sep 08, 2024 08:25 AM Consult Order COMMUNITY CARE-UROLOGY Cons Architectural Job Captain's Choice [place] [facility] [place] [facility] Lab Results: +/- 30 days of the encounter This section includes the Chemistry and Hematology Lab Results on record with [place] for the patient. Radiology Reports and Pathology Reports are provided separately, in subsequent sections. Lab Results This section contains the Chemistry/Hematology Results that were resulted 30 days before or 30 daysafter the date of the Encounter. Date/Time Source Result Type Result - Unit Interpretation Reference Range Comment Aug 31, 2024 01:30 PM [facility] PSA Specimen Type: SERUM No comment entered. Ordering Provider: YANETH JOE Report Released Date/Time: March 09, 2024 09:50 AM Reporting Lab: [facility] [address] [facility] [address] Performing Lab: [address] [address] PSA 8.81 ng/mL H 0.00-4.00 Aug 31, 2024 01:30 PM [facility] BASIC METABOLIC PANEL (non-fasting) Specimen Type: SERUM No comment entered. Ordering Provider: YANETH JOE Report Released Date/Time: March 09, 2024 09:50 AM Reporting Lab: [address] [address] Performing Lab: [address] [address] UREA NITROGEN 16 mg/dL 7-25 GLUCOSE 106 [...] and tobacco- related health factors from the [place] facility where the Encounter took place. Current Smoking Status This section includes the most current smoking, or tobacco-related health factor, from the [place] facility where the Encounter took place. Date/Time Current Smoking Status Comment [facility] March 09, 2024 09:00 AM VA-TOBACCO FORMER USER [facility] Tobacco Use History This section includes a history of the smoking, or tobacco-related health factors, that were collected on or before the date of the Encounter. The data comes from the [place] facility where the Encounter took place. Date/Time Smoking Status/Tobac co Use Comment Facility March 09, 2024 09:00 AM VA-TOBACCO QUIT 15 YRS OR MORE [facility] [place] [facility] March 18, 2023 02:30 PM VA-TOBACCO FORMER USER [facility] [place] [facility] March 18, 2023 02:30 PM VA-TOBACCO QUIT 15 YRS OR MORE [facility] [place] [facility] Jan 11, 2022 08:30 AM VA-TOBACCO FORMER USER [facility] [place] [facility] Jan 11, 2022 08:30 AM VA-TOBACCO QUIT 15 YRS OR MORE [facility] [place] [facility] Dec 26, 2020 09:00 AM VA-TOBACCO FORMER USER [facility] [place] [facility] Dec 26, 2020 09:00 AM VA-TOBACCO QUIT 15 YRS OR MORE [facility] [place] [facility] Dec 08, 2019 09:16 AM VA-TOBACCO FORMER USER [facility] [place] [facility] Dec 08, 2019 09:16 AM VA-TOBACCO QUIT 15 YRS OR MORE [place] [facility] [place] [facility] Oct 14, 2018 02:56 PM VA-TOBACCO FORMER USER [place] [facility] [place] [facility] Oct 14, 2018 02:56 PM VA-TOBACCO QUIT 15 YRS OR MORE [facility] [place] [facility] Dec 12, 2017 09:20 AM QUIT TOBACCO USE > 7 YEARS AGO quit > 30 yrs ( 2-3 pks a day) [place] [facility] [place] [facility] Advance Directives: All historical and current Section Date Range: From patient's date of to the date document was created. This section includes ALL of a patient's completed or amended [place] Advance and Rescinded Directives. The entries below indicate that a directive exists for the patient, but an actual copy is not included with this document. The data comes from all [place] facilities. Date Advance Directives Provider Source Feb 09, 2019 ADVANCE DIRECTIVE VAN MORENO [place] [facility] [place] [facility] Feb 08, 2019 ADVANCE DIRECTIVE SAMM BRINK [facility] Encounter Notes: All associated encounter notes This section contains the clinical notes associated to the Encounter. Date/Time Encounter Note(s) Provider Source Sep 21, 2024 02:00 PM SOCIAL WORK GROUP COUNSELING NOTE: LOCAL TITLE: SOCIAL WORK GROUP NOTE STANDARD TITLE: SOCIAL WORK GROUP COUNSELING NOTE DATE OF NOTE: SEP 21, 2024@14:00 ENTRY DATE: SEP 21, 2024@15:44:40 AUTHOR: MANDY FLORES COSIGNER: URGENCY: STATUS: COMPLETED This was a 60-minute supportive psychotherapy group for [employer] Veterans with PTSD.7 members were present today. Topics discussed today included: [x ] health/mental health issues and concerns of members and loved ones. Family members with dementia was discussed. [x ] activities of daily living, including volunteering, socialization, trying of new activities, and family gatherings [ x ] grief and loss, including of family, friends, and/or other veterans. More time was spent processing recent loss of group member. [ ] substance use, including coping skills to maintain sobriety or address recent use [ ] managing PTSD symptoms [x ] [place] specific resources [x ] anger management - and how age has tempered people's reactions. Members provided one another with support and feedback. Next group will be 10/05/2024 updated on his sister's care and dementia, as well as how he is coping with recent losses. 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
--- OUTSIDE RECORDS SUMMARY | 2024-11-02 06:42 | XMS_ITS ---
Author Organization [facility] Lucie agrawal [place] Address [address] [place] [address] Care Team Providers Care Nurse Liaison Name Role Phone Kleber Billy MD Primary Care Provider Unavaila Osman Velazco Unavailable [phone] Allergies Allergen (clinical drug ingredient) Drug/Non Drug Allergy documented on EMR Reaction Allergy Type Onset Date Status Seasonale Unknown Drug Allergy Active shrimp allergenic extract Shrimp (Diagnostic) swelling Drug Allergy Active Shellfish (FN) Shellfish-derived Products swelling Drug Allergy Active REASON FOR VISIT At Risk Footcare, Painful Nail(s) aggrevated by shoes and causing difficulty standing/walking. Medications Medication SIG (Take, Route, Frequency, Duration) Notes Start Date End Date Status Simvastatin 40 MG Orally No t-Taking Rosuvastatin Calcium 20 MG 1 tablet Orally Once a day for 30 day(s) Active Benazepril HCl 20 MG Orally Active Jessica Allergy 180 MG 1 tablet Orally O nce a day Active Ammonium Lactate 12 % APPLY TOPICALLY TO THE FEET TWICE DAILY for 30 Active Vital Signs Height 6ft 2in in 07/28/2024 Weight 186 lbs 07/28/2024 BMI 23.88 kg/m2 07/28/2024 Blood pressure systolic 120 mm Hg 07/28/20 24 Blood pressure diastolic 80 mm Hg 024 Procedures Procedure Date Ordered Date Performed Result Body Sit e 38802-YMZJRSR NAIL, 6 OR MORE 07/28/2024 N/A 06749-HEUG SKIN LESIONS, OVER 4 07/28/2024 N/A Encounters Encounter Location Date [facility] [address] [place] [address] 07/28/2024 Osman Blanc Atherosclerosis of [place] artery of both lower extremities, with unspecified presence of clinical manifestation I70.203 ; Tinea unguium B35.1 ; Pain in right toe(s) M79.674 and Pain in left toe(s) M79.675 Assessments Encounter Date Diagnosis (ICD Code) Assessment Notes Treatment Notes Treatment Clinical Notes Section Notes 07/28/2024 Atherosclerosis of [place] artery of both lower extremities, with unspecified presence of clinical manifestation (ICD-10 - I70.203) 07/28/2024 Tinea unguium (ICD-10 - B35.1) 07/28/2024 Pain in right toe(s) (ICD-10 - M79.674) 07/28/2024 Pain in left toe(s) (ICD-10 - M79.675) Plan Of Treatment Pending Test Test Name Order Date 46335-[id number] NAIL, 6 OR MORE 07/28/2024 30679-FIHQ SKIN LESIONS, OVER 4 07/28/20 24 Next Appt Details Follow Up: prn, Reason: Provider Name:Osman Blanc , 11/03/2024 09:00:00 AM, [address] [place] [address], [place], [address], Procedure Notes * Category Sub-Category Detail Notes Debride Nail 6-10 Nail debridement Performance o f this nail treatment by a nonprofessional would put this patients foot and overall health at risk. Therefore, nail debridement was performed extensively to reduce/remove overall nail length, girth, thickness, subungual debris, and necrotic tissue, by manual and/or electrical means through the use of a nail nipper and/or dremel-type bit grinder, to a more viable healthy nail plate or bed tissue 6-10. Silver nitrate used for any petechial bleeding as necessary. Definitive antifungal treatment options have been reviewed and discussed with the patient. The patient chooses, no pharmaceutical tx - 54886 Keratoma Treatment Parring or Cutting o f Benign Hyperkeratotic Lesion(s) (-57) More than 4 Lesions - The Benign hyperkeratotic lesions, as described above were pared, and/or cut utilizing a sterile 15 blade, tissue nippers, and/or dremel - 14116 , Q8 Progress Notes * Lynette SANCHEZ JrDOB:[birth year] (74 yo M)Acc No.[id number]:07/28/2024 Progress Note Patient:Lynette Guzman Provider:?Osman Blanc DPM :1950???Age:74 Y???Sex:Male Praveen e:07/28/2024 Address:[facility] [place], [id number] Pcp:Kleber Billy MD Subjective: * Chief Complaints: * ???At Risk FootcarePainful N ail(s) aggrevated by shoes and causing difficulty standing/walking. * HPI: ???At Risk footcare:?Pt States Last PCP Visit:?Date?2024 * ROS:?General/Constitutional:?Nausea?denies.?Vomiting?denies.?Hunger Thirst?denies.?Loss appetite?denies.?Chills?denies.?Fatigue?denies.?Fever?denies.?Night Sweats?denies.?Unexplained weight loss?denies.?Unexplained weight gain?denies.?HEENTM:?Dentures?denies.?Dizziness?denies.?Glasses/contacts?admits.?Retinopathy?de nies.?Blurred/double vision?denies.?TMJ?denies.?Discharge/drainage?denies.?Implants?denies.?Sore throat?denies.?Dental implants?denies.?Hard of hearing ?denies.?Difficulty chewing/swallowing/speaking?denies.?Nose bleeds?denies.?Sore mouth?denies.?Respiratory:?On Oxygen?denies.?Pneumonia/pleurisy?denies.?Bronchitis?denies.?Emphysema?denies.?C oughing?denies.?Cough blood?denies.?Shortness of breath?denies.?Wheezing?denies.?Cardiovascular:?Pacemaker?denies.?MVP?denies.?WPW?denies.?CHF?denies.?Heart attack?denies.?Septal defect?denies.?Rapid beat?denies.?Chest pain ?denies.?Atrial Fib.?denies.?Murmur/Palpitations?denies.?Gastrointestinal:?Hemorrhoids?denies.?Stomach/Abdominal pain?denies.?Dark blood stool?denies.?Irritable bowel ?denies.?Constipation?denies.?Diarrhea?denies.?Hematology:?Swelling?denies.?Clots?denies.?Varicose Veins?denies.?Bruising?denies.?Bleeding problem?denies.?Genitourinary:?Blood urine?denies.?Frequent/Painfu/urination/bladder control?denies.?Kidney stones?denies.?Infection (UTI)?denies.?Nephropathy?denies.?sex trans dis (STD)?denies.?Prostate?denies.?Musculoskeletal:?Hammertoes?admits.?Bunions?denies.?Back Pain?denies.?Muscle Cramps/ Resting?denies.?Muscle cramps / walking?denies.?Generalized aches and pains?denies.?Weakness?denies.?Integ.:?Amos?denies.?Scars?denies.?Corns/calluses?admits.?Ingrown nails?admits.?Painful nails?admits.?Open Sores?denies.?Rashes?denies.?Neurologic:?Difficulty sleeping?denies.?Brain disorder?denies.?Numbness?denies.?Balance trouble?denies.?Confusion?denies.?Fainting/blackouts?denies.?Tingling?denies.?Tr emors?denies.? * Medical History:? * Surgical History:?right hip surgery 07/2015 * Hospitalization/Major Diagno stic Procedure:?[facility] ER- Unknown Headache Migraine for 5 days same day took off med simvastatin 12/25/22 * Family History:?Mother: unkn own.?Father: , diagnosed with Other malignant neoplasm of unspecified site, Diabetic - NIDDM, Unspecified essential hypertension.? * Medications:?TakingRosuvasta tin Calcium 20 MG Tablet 1 tablet Orally Once a dayAllegra Allergy 180 MG Tablet 1 tablet Orally Once a dayBenazepril HCl 20 MG Tablet Orally Ammonium Lactate 12 % Cream APPLY TOPICALLY TO THE FEET TWICE DAILY Taking Rosuvastatin Calcium 20 MG Tablet 1 tablet Orally Once a dayTaking Jessica Allergy 180 MG Tablet 1 tablet Orally Once a dayTaking Benazepril HCl 20 MG Tablet Orally Taking Ammonium Lactate 12 % Cream APPLY TOPICALLY TO THE FEET TWICE DAILY Not-Taking/PRNSimvastatin 40 MG Tablet Orally Medication List reviewed and reconciled with the patientNot-Taking/PRN Simvastatin 40 MG Tablet Orally Medication List reviewed and reconciled with the patient * Allergies:?Shellfish-derived Products: swellingShrimp (Diagnostic): swellingSeasonaleyes[Allergies Verified] Objective: * Vitals:?Ht: 6ft 2in, Wt: 186 , BMI: 23.88, Shoe size: 12, BP: 120/80 mm Hg, Ht- cm: 187.96 cm, Wt-k.37 kg. * Examination: ???Vascular: ?DP PULSES(B):?1/4, B/L.?PT PULSES(B):? 0/4, B/L.?CAPILLARY FILL TIME:? delayed, all digits, B/L.?TROPHIC CONDITION-TEXTURE/ELASTICITY/TURGOR/HAIR GROWTH(B):? decreased, with sparse to absent hair growth, B/L.?TEMPERTURE GRADIENT(C):? decreased, cool to cool, proximal to distal, B/L.?PIGMENTATION:? mottled, B/L.?EDEMA(C):?absent, B/L.?CLAUDICATION(C):?STILL admits, 16-30 min, B/L, Left > Right.?Nails: ?NAILS are:? Elongated, overgrown, dystrophic, lytic, greater than 3mm thick, discolored and friable with crumbly malodorous subungual debris, with pain on palpation, TA, T1, T2, T4, T5, T6, T7, T9.?Dermatologic: ?SKIN FINDINGS:?Skin exam reveals Keratotic lesion(s) located at, Dorsal, DIPJ, T4, SUB MTH (s), 1, B/L , SUB MTH (s), 5, B/L , SUB 5th MTBase, Left , Heel(s), B/L.? Assessment: * Assessment: 1.?Tinea unguium - B35.1?2.? Atherosclerosis of [place] artery of both lower extremities, with unspecified presence of clinical manifestation - I70.203 (Primary)?3.?Pain in right toe(s) - M79.674?4.?Pain in left toe(s) - M79.675? Plan: * Treatment: 2.?Tinea unguium?Procedure: 54073-RDFTTJX NAIL, 6 OR MORE * Procedures:?Debride Nail 6-10:?Nail debridement?Performance of this nail treatment by a nonprofessional would put this patients foot and overall health at risk. Therefore, nail debridement was performed extensively to reduce/remove overall nail length, girth, thickness, subungual debris, and necrotic tissue, by manual and/or electrical means through the use of a nail nipper and/or dremel-type bit grinder, to a more viable healthy nail plate or bed tissue 6-10. Silver nitrate used for any petechial bleeding as necessary. Definitive antifungal treatment options have been reviewed and discussed with the patient. The patient chooses, no pharmaceutical tx - 93894.?Keratoma Treatment:?Parring or Cutting of Benign Hyperkeratotic Lesion(s)?(-57) More than 4 Lesions - The Benign hyperkeratotic lesions, as described above were pared, and/or cut utilizing a sterile 15 blade, tissue nippers, and/or dremel - 08242 , Q8.? * Procedure Codes:?14049 DEBRI DE NAIL, 6 OR MORE, Modifiers: XS 84063 TRIM SKIN LESIONS, OVER 4, Modifiers: XS , Q8 * Follow Up:?prn * Images: * Sign off status: Completed true * Provider:?Osman Blanc DPM Date:?2023 Generated for Ally gomez/Leann/Maryjane on:?11/02/2024 06:42 AM EST History and Physical Notes * HPI (History of Present Illness) Category Sub-Category Detail Notes Category Not es At Risk footcare Pt States Last PCP Visit: Date: Examination Category Sub-Category Detail Notes Category Not es Dermatologic SKIN FINDINGS: Skin exam reveal s Keratotic lesion(s) located at, Dorsal, DIPJ, T4, SUB MTH (s), 1, B/L , SUB MTH (s), 5, B/L , SUB 5th MTBase, Left , Heel(s), B/L Vascular DP PULSES (B): 1/4, B/L PT PULSES (B): 0/4, B/L CAPILLARY FILL TIME: delayed, all digits , B/L TEMPERTURE GRADIENT (C): decreased, cool to cool, proximal to distal, B/L TROPHIC CONDITION-TEXTURE/ELASTICITY/TURGOR/HAIR GROWTH (B): decreased, with sparse to absent hair gr owth, B/L EDEMA (C): absent, B/L CLAUDICATION (C): STILL admits, 16-30 min, B/L, Left > Right PIGMENTATION: mottled, B/L Nails NAILS are: Elongated, overg rown, dystrophic, lytic, greater than 3mm thick, discolored and friable with crumbly malodorous subungual debris, with pain on palpation, TA, T1, T2, T4, T5, T6, T7, T9
--- OUTSIDE RECORDS SUMMARY | 2024-11-02 06:42 | XMS_ITS ---
Author Name [facility] Organization [facility] Address [address] [place] [id number] Care Team Providers Care Code Inspector Name Role Phone YANETH JOE Primary [...] Policy 's Name Patient's Relationship to Policy [facility] (WNR) MEDICARE ADVANTAGE [facility] (R) Oct 28, 2019 [id number] IVANA CAM JONAS PATIENT Selected Encounter This section includes the information on record at [place] for the Encounter. Date/Time Encounter Type Encounter Description Reason Provider Source Oct 12, 2024 02:00 PM [facility] ICD-10-CM F43.10 Post-traumatic stress disorder, unspecified MARK,ZEUS IE IHE Encounter Template Text not used by [place] Assessments - Encounter Diagnoses This section includes the primary and secondary diagnoses documented for the Encounter. Date/Time Primary/Secondary Diagnosis Diagnosis Name Provider Source Oct 12, 2024 03:48 PM PRIMARY Post-traumatic stress disorder, unspecified MARK[facility]QUELIN E [facility] Plan of Treatment: Future Appointments (+ 6 months) and Future Tests (+/- 45 days) The Plan of Treatment section includes future care activities for the patient from all [place] [facility]. This section includes future appointments and future orders which are active, pending or scheduled. Future Appointments This section includes appointments that were scheduled to occur 6 months from the date of the Encounter, up to a maximum of 20 appointments. The data comes from all [place] treatment facilities. Appointment Date/Time Appointment Type Appointme nt Facility Name Oct 19, 2024 02:00 PM [facility] Oct 27, 2024 11:45 AM [facility] Nov 02, 2024 02:00 PM [facility] Nov 23, 2024 02:00 PM [facility] Dec 29, 2024 08:30 AM [facility] Jan 12, 2025 07:30 AM [facility] March 09, 2025 08:30 AM [facility] Active, Pending, and Scheduled Orders This section includes a listing of several types of active, pending, and scheduled orders, including clinic medications orders, diagnostic test orders, procedure orders and consult orders; where the start date of the order is 45 days before the date of the Encounter or 45 days after the date of theEncounter. The data comes from all [facility]. Test Date/Time Test Type Test Details Facility Name Sep 08, 2024 08:25 AM Consult Order COMMUNITY CARE-UROLOGY Cons Unit Supervisor's Choice [facility] Social History: Smoking Status (Most current) [...] 09, 2024 09:00 AM VA-TOBACCO FORMER USER [facility] Tobacco Use History This section includes a history of the smoking, or tobacco-related health factors, that were collected on or before the date of the Encounter. The data comes from the [place] facility where the Encounter took place. Date/Time Smoking Status/Tobac co Use Comment Facility March 09, 2024 09:00 AM VA-TOBACCO QUIT 15 YRS OR MORE [place] [facility] [place] [facility] March 18, 2023 02:30 PM VA-TOBACCO FORMER USER [place] [facility] [place] [facility] March 18, 2023 02:30 PM VA-TOBACCO QUIT 15 YRS OR MORE [facility] [place] [facility] Jan 11, 2022 08:30 AM VA-TOBACCO FORMER USER [facility] [place] [facility] Jan 11, 2022 08:30 AM VA-TOBACCO QUIT 15 YRS OR MORE [facility] [place] [facility] Dec 26, 2020 09:00 AM VA-TOBACCO FORMER USER [place] [facility] [place] [facility] Dec 26, 2020 09:00 AM VA-TOBACCO QUIT 15 YRS OR MORE [facility] [place] [facility] Dec 08, 2019 09:16 AM VA-TOBACCO FORMER USER [place] [facility] [place] [facility] Dec 08, 2019 09:16 AM VA-TOBACCO QUIT 15 YRS OR MORE [facility] [place] [facility] Oct 14, 2018 02:56 PM VA-TOBACCO FORMER USER [place] [facility] [place] [facility] Oct 14, 2018 02:56 PM VA-TOBACCO QUIT 15 YRS OR MORE [facility] [place] [facility] Dec 12, 2017 09:20 AM QUIT TOBACCO USE > 7 YEARS AGO quit > 30 yrs ( 2-3 pks a day) [place] [facility] [place] [facility] Advance Directives: All historical and current [...] Feb 09, 2019 ADVANCE DIRECTIVE VAN MORENO [place] [facility] [place] [facility] Feb 08, 2019 ADVANCE DIRECTIVE SAMM BRINK [facility] Encounter Notes: All associated encounter notes This section contains the clinical notes associated to the Encounter. Date/Time Encounter Note(s) Provider Source Oct 12, 2024 02:00 PM SOCIAL WORK GROUP COUNSELING NOTE: LOCAL TITLE: SOCIAL WORK GROUP NOTE STANDARD TITLE: SOCIAL WORK GROUP COUNSELING NOTE DATE OF NOTE: OCT 12, 2024@14:00 ENTRY DATE: OCT 12, 2024@15:40:19 AUTHOR: MANDY FLORES COSIGNER: URGENCY: STATUS: COMPLETED This was a 60-minute supportive psychotherapy group for [employer] Veterans with PTSD. 9 members were present today. Topics discussed today included: [ x ] health/mental health issues and concerns of members and loved ones [ x ] activities of daily living, including volunteering, socialization, trying of new activities, and family gatherings [ ] grief and loss, including of family, friends, and/or other veterans. [ x ] substance use, including coping skills to maintain sobriety or address recent use [ ] managing PTSD symptoms [ x ] specific resources [ ] anger management [ x ] aging related issues including memory/cognitive decline. Members provided one another with support and feedback. Next group will be 10/19/2024 reported he was doing well. He shared, when asked, that he continues to drink though caps it at two drinks. He said his body tells him he can't have more than that. He was attentive and supportive to other members. /gio/ MANDY FLORES [facility] CLINICAL OUTSIDE SALES CONSULTANT Signed: 10/12/2024 15:49 MANDY FLORES [facility]
--- OUTSIDE RECORDS SUMMARY | 2024-11-02 06:42 | XMS_ITS ---
[facility] Organization [facility] Address [address] [facility] [place] [address] Care Team Providers Care Studio Musician Name Role Phone Kleber Billy MD Primary Care Provider Unavaila Osman Velazco Unavailable [phone] Allergies Allergen (clinical drug ingredient) Drug/Non Drug Allergy documented on EMR Reaction Allergy Type Onset Date Status Seasonale Unknown Drug Allergy Active shrimp allergenic extract Shrimp (Diagnostic) swelling Drug Allergy Active Shellfish (FN) Shellfish-derived Products swelling Drug Allergy Active REASON FOR VISIT At Risk Footcare, Painful Nail(s) aggrevated by shoes and causing difficulty standing/walking., Skin problem(s) Medications Medication SIG (Take, Route, Frequency, Duration) Notes Start Date End Date Status Ammonium Lactate 12 % 1 application Externally Twice a day for 30 days Active Simvastatin 40 MG Orally No t-Taking Rosuvastatin Calcium 20 MG 1 tablet Orally Once a day for 30 day(s) Active Jessica Allergy 180 MG 1 tablet Orally O nce a day Active Benazepril HCl 20 MG Orally Active Social History Tobacco Use: Social History Observation Description Date Details (start date - stop date) Former Smoker NA - NA Tobacco Use/Smoking Question Answer Notes Are you a: former smoker Additional Findings: Tobacco Non-User Ex-cigaret te smoker Alcohol Screen Question Answer Notes Did you have a drink containing alcohol in the p ast year? No Points 0 Interpretation Negative Tobacco use other than smoking: Question Answer Notes Are you an other tobacco user? No Vital Signs Height 6ft 2in in 05/05/2024 Weight 186 lbs 05/05/2024 BMI 23.88 kg/m2 05/05/2024 Blood pressure systolic 120 mm Hg 05/05/20 24 Blood pressure diastolic 80 mm Hg 024 Procedures Procedure Date Ordered Date Performed Result Body Sit e 47616-XLWEBDS NAIL, 6 OR MORE 05/05/2024 N/A 48750-XMIO SKIN LESIONS, OVER 4 05/05/2024 N/A Encounters Encounter Location Date Provider Diagnosis [facility] [address] [place] [address] 05/05/2024 Osman Blanc Atherosclerosis of [place] artery of both lower extremities, with unspecified presence of clinical manifestation I70.203 ; Tinea unguium B35.1 ; Pain in right toe(s) M79.674 ; Pain in left toe(s) M79.675 and Xerosis of skin L85.3 Assessments Encounter Date Diagnosis (ICD Code) Assessment Notes Treatment Notes Treatment Clinical Notes Section Notes 05/05/2024 Atherosclerosis of [place] artery of both lower extremities, with unspecified presence of clinical manifestation (ICD-10 - I70.203) 05/05/2024 Tinea unguium (ICD-10 - B35.1) 05/05/2024 Pain in right toe(s) (ICD-10 - M79.674) 05/05/2024 Pain in left toe(s) (ICD-10 - M79.675) 05/05/2024 Xerosis of skin (ICD-10 - L85.3) Plan Of Treatment Pending Test Test Name Order Date 87222-FDUVYPR NAIL, 6 OR MORE 05/05/2024 57065-JLLE SKIN LESIONS, OVER 4 05/05/20 24 Next Appt Details Follow Up: prn, Reason: Provider Name:Osman Blanc , 11/03/2024 09:00:00 AM, [address] [place] [address], [id number], Procedure Notes * Category Sub-Category Detail Notes Debride Nail 6-10 Nail debridement Nail debridem ent performed extensively to reduce/remove overall nail length, girth, thickness, subungual debris, and necrotic tissue, by manual and electrical means through the use of a nail nipper and/or dremel, to more viable healthy nail plate or bed tissue 1-5. Silver nitrate used for any petechial bleeding as necessary. Patient chooses, no pharmaceutical tx (81474) Keratoma Treatment Parring or Cutting o f Benign Hyperkeratotic Lesion(s) 96498 ( >4 Lesions) - The Benign hyperkeratotic lesions, as described above were pared, and/or cut utilizing a sterile #15 blade, tissue nippers, and/or dremel, Q8 Progress Notes * Lynette SANCHEZ JrDOB:[birth year] (73 yo M)Acc No.[id number]:05/05/2024 Progress Note Patient:?Lynette Sanchez Provider:?Osman Blanc DPM :1950???Age:73 Y???Sex:Male Praveen e:05/05/2024 Address:[address] [place] [address] [id number] Pcp:Kleber Billy MD Subjective: * Chief Complaints: * ???At Risk FootcarePainful N ail(s) aggrevated by shoes and causing difficulty standing/walking.Skin problem(s) * HPI: ???At Risk footcare:?Pt States Last PCP Visit:?Date?03/26/2024 ???Skin problems:?Treatments:?medication ( AM Lactin ) , states adherence to recommended treatment application.? * ROS:?General/Constitutional:?Nausea?denies.?Vomiting?denies.?Hunger Thirst?denies.?Loss appetite?denies.?Chills?denies.?Fatigue?denies.?Fever?denies.?Night Sweats?denies.?Unexplained weight loss?denies.?Unexplained weight gain?denies.?HEENTM:?Dentures?denies.?Dizziness?denies.?Glasses/contacts?admits.?Retinopathy?de nies.?Blurred/double vision?denies.?TMJ?denies.?Discharge/drainage?denies.?Implants?denies.?Sore throat?denies.?Dental implants?denies.?Hard of hearing ?denies.?Difficulty chewing/swallowing/speaking?denies.?Nose bleeds?denies.?Sore mouth?denies.?Respiratory:?On Oxygen?denies.?Pneumonia/pleurisy?denies.?Bronchitis?denies.?Emphysema?denies.?C oughing?denies.?Cough blood?denies.?Shortness of breath?denies.?Wheezing?denies.?Cardiovascular:?Pacemaker?denies.?MVP?denies.?WPW?denies.?CHF?denies.?Heart attack?denies.?Septal defect?denies.?Rapid beat?denies.?Chest pain ?denies.?Atrial Fib.?denies.?Murmur/Palpitations?denies.?Gastrointestinal:?Hemorrhoids?denies.?Stomach/Abdominal pain?denies.?Dark blood stool?denies.?Irritable bowel ?denies.?Constipation?denies.?Diarrhea?denies.?Hematology:?Swelling?denies.?Clots?denies.?Varicose Veins?denies.?Bruising?denies.?Bleeding problem?denies.?Genitourinary:?Blood urine?denies.?Frequent/Painfu/urination/bladder control?denies.?Kidney stones?denies.?Infection (UTI)?denies.?Nephropathy?denies.?sex trans dis (STD)?denies.?Prostate?denies.?Musculoskeletal:?Hammertoes?admits.?Bunions?denies.?Back Pain?denies.?Muscle Cramps/ Resting?denies.?Muscle cramps / walking?denies.?Generalized aches and pains?denies.?Weakness?denies.?Integ.:?Amos?denies.?Scars?denies.?Corns/calluses?admits.?Ingrown nails?denies.?Painful nails?admits.?Open Sores?denies.?Rashes?denies.?Neurologic:?Difficulty sleeping?denies.?Brain disorder?denies.?Numbness?denies.?Balance trouble?denies.?Confusion?denies.?Fainting/blackouts?denies.?Tingling?denies.?Tr emors?denies.? * Medical History:? * Surgical History:?right hip surgery 07/2015 * Hospitalization/Major Diagno stic Procedure:?[facility]- Unknown Headache Migraine for 5 days same day took off med simvastatin 12/25/22 * Family History:?Mother: unkn own.?Father: , diagnosed with Diabetic - NIDDM, Unspecified essential hypertension, Other malignant neoplasm of unspecified site.? * Social History:?Tobacco Use:?Tobacco Use/Smoking?Are you a:?former smoker ?Additional Findings: Tobacco Non-User?Ex-cigarette smoker ?Tobacco use other than smoking?Are you an other tobacco user??No ???Drugs/Alcohol:?Drugs?Have you used drugs other than those for medical reasons in the past 12 months??No ?Alcohol Screen?Did you have a drink containing alcohol in the past year??No ?Points?0 ?Interpretation?Negative ???Miscellaneous:?Caffeine: yes, frequency:, 3- 4 cups per day. ?Children: yes, 2. ?no Exercise. ?Marital status: . 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 * Medications:?TakingRosuvasta tin Calcium 20 MG Tablet 1 tablet Orally Once a dayAllegra Allergy 180 MG Tablet 1 tablet Orally Once a dayBenazepril HCl 20 MG Tablet Orally Ammonium Lactate 12 % Cream 1 application Externally Twice a dayTaking Rosuvastatin Calcium 20 MG Tablet 1 tablet Orally Once a dayTaking Jessica Allergy 180 MG Tablet 1 tablet Orally Once a dayTaking Benazepril HCl 20 MG Tablet Orally Taking Ammonium Lactate 12 % Cream 1 application Externally Twice a dayNot-Taking/PRNSimvastatin 40 MG Tablet Orally Medication List reviewed and reconciled with the patientNot-Taking/PRN Simvastatin 40 MG Tablet Orally Medication List reviewed and reconciled with the patient * Allergies:?Shellfish-derived Products: swellingShrimp (Diagnostic): swellingSeasonaleyes[Allergies Verified] Objective: * Vitals:?Ht: 6ft 2in, Wt:186, BMI:23.88, Shoe size:12, BP:120/80 mm Hg. * Examination: ???Vascular: ?DP PULSES:?1/4, B/L.?PT PULSES:? 0/4, B/L.?CAPILLARY FILL TIME:? delayed, all digits, B/L.?SKIN TEMPERTURE GRADIENT OF THE LOWER EXTERMITIES:? decreased, cool to cool, proximal to distal, B/L.?HAIR GROWTH/TEXTURE/ELASTICITY/TURGOR:? decreased, B/L.?PIGMENTATION:? mottled, B/L.?EDEMA:?absent, B/L.?CLAUDICATION:?STILL admits, 16-30 min, B/L, Left > Right.?Nails: [...] SUB 5th MTBase, Left , Heel(s), B/L , Skin shows approximately 90% LESS, sign(s) of, dryness, scaling, in a stocking fashion, no fissure(s) present, B/L.? Assessment: * Assessment: 1.?Tinea unguium - B35.1?2.? Atherosclerosis of [place] artery of both lower extremities, with unspecified presence of clinical manifestation - I70.203 (Primary)?3.?Pain in right toe(s) - M79.674?4.?Pain in left toe(s) - M79.675?5.?Xerosis of skin - L85.3, Acute problem, Stable (1=3),Response to treatment - Improvement? Plan: * Treatment: 2.?Tinea unguium?Procedure: 95526-PJQQPQE NAIL, 6 OR MORE * Procedures:?Debride Nail 6-10:?Nail debridement?Nail debridement performed extensively to reduce/remove overall nail length, girth, thickness, subungual debris, and necrotic tissue, by manual and electrical means through the use of a nail nipper and/or dremel, to more viable healthy nail plate or bed tissue 1-5. Silver nitrate used for any petechial bleeding as necessary. Patient chooses, no pharmaceutical tx (58100).?Keratoma Treatment:?Parring or Cutting of Benign Hyperkeratotic Lesion(s)?60433 ( >4 Lesions) - The Benign hyperkeratotic lesions, as described above were pared, and/or cut utilizing a sterile #15 blade, tissue nippers, and/or dremel, Q8.? * Procedure Codes:?52094 DEBRI DE NAIL, 6 OR MORE, Modifiers: XS 51611 TRIM SKIN LESIONS, OVER 4, Modifiers: XS , Q8 * Preventive Medicine:? ??Counseling:?Discussion:?-12: Office or other outpatient visit for the evaluation and management of an established patient, which required a medically appropriate history and/or examination and STRAIGHTFORWARD level of MEDICAL DECISION MAKING, 1 SELF-LIMITED OR MINOR PROBLEM, MINIMAL- NO AMOUNT/COMPLEXITY OF DATA TO BE REVIEWED/ANALYZED, AND MINIMAL RISK OF COMPLICATION/MORBIDITY. The visit on the day of the encounter encompassed interpreting the data and educating the patient as to the nature of their condition, treatment options available according to their individual PMH, meds, allergies, and overall health/living conditions, as well as any potential risks or complications that may occur from a failure to adhere to, and participate in, the recommended course of therapy. The discussion included a complete verbal, and/or written explanation of the examination results, any x-rays taken, the proposed diagnosis, and outline of the treatment plan. A schedule for future care needs was also explained. The patient verbalized an understanding of the instructions at this time and agreed to be an active participant in their treatment. If the patient should think of any questions or concerns after the visit, I have encouraged the patient to call the office.?Xerosis:?Given recent successful results to treatment, The patient is to cont the rx cream as directed.? * Follow Up:?prn * Images: * Sign off status: Completed Addendum: * ? true * Provider:?Osman Blanc DPM Date:?2023 Generated for Ally gomez/Leann/Maryjane on:?11/02/2024 06:42 AM EST History and Physical Notes * HPI (History of Present Illness) Category Sub-Category Detail Notes Category Not es Skin problems Treatments: medication ( AM Lactin ) , states adherence to recommended treatment application At Risk footcare Pt States Last PCP Visit: Date: 03/26/2024 Examination Category Sub-Category Detail Notes Category Not es Dermatologic SKIN FINDINGS: Skin exam reveal s Keratotic lesion(s) located at, Dorsal, DIPJ, T4, SUB MTH (s), 1, B/L , SUB MTH (s), 5, B/L , SUB 5th MTBase, Left , Heel(s), B/L , Skin shows approximately 90% LESS, sign(s) of, dryness, scaling, in a stocking fashion, no fissure(s) present, B/L Vascular DP PULSES (B): 1/4, B/L PT PULSES (B): 0/4, B/L CAPILLARY FILL TIME: delayed, all digits , B/L TEMPERTURE GRADIENT (C): decreased, cool to cool, proximal to distal, B/L TROPHIC CONDITION-TEXTURE/ELASTICITY/TURGOR/HAIR GROWTH (B): decreased, B/L EDEMA (C): absent, B/L CLAUDICATION (C): STILL admits, 16-30 min, B/L, Left > Right PIGMENTATION: mottled, B/L Nails NAILS are: Elongated, overg rown, dystrophic, lytic, greater than 3mm thick, discolored and friable with crumbly malodorous subungual debris, with pain on palpation, TA, T1, T2, T4, T5, T6, T7, T9
--- OUTSIDE RECORDS SUMMARY | 2024-11-02 06:42 | XMS_ITS ---
Author [facility] Address [address] [facility] [place] [address] Care Team Providers Care Manager Nursing Home Name Role Phone Kleber Billy MD Primary Care Provider Unavaila Osman Velazco Unavailable [phone] Allergies Allergen (clinical drug ingredient) Drug/Non Drug [...] Status Simvastatin 40 MG Orally No t-Taking Benazepril HCl 20 MG Orally Active Ammonium Lactate 12 % 1 application Externally Twice a day for 30 days Active Jessica Allergy 180 MG 1 tablet Orally O nce a day Active Rosuvastatin Calcium 20 MG 1 tablet Orally Once a day for 30 day(s) Active Social History Tobacco Use: Social History [...] No Vital Signs Height 6ft 2in in 01/31/2024 Weight 186 lbs 01/31/2024 BMI 23.88 kg/m2 01/31/2024 Blood pressure systolic 120 mm Hg 01/31/20 24 Blood pressure diastolic 80 mm Hg 024 Procedures Procedure Date Ordered Date Performed Result Body Sit e 01455-RMIQYUK NAIL, 6 OR MORE 01/31/2024 N/A 15792-TWTV SKIN LESIONS, OVER 4 01/31/2024 N/A Encounters Encounter Location Date Provider Diagnosis [facility] [address] [place] [address] 01/31/2024 Osman Blanc Atherosclerosis of [place] artery of both lower extremities, with unspecified presence of clinical manifestation I70.203 ; Tinea unguium B35.1 ; Pain in right toe(s) M79.674 ; Pain in left toe(s) M79.675 and Xerosis of skin L85.3 Assessments Encounter Date Diagnosis (ICD Code) Assessment Notes Treatment Notes Treatment Clinical Notes Section Notes 01/31/2024 Atherosclerosis of [place] artery of both lower extremities, with unspecified presence of clinical manifestation (ICD-10 - I70.203) 01/31/2024 Tinea unguium (ICD-10 - B35.1) 01/31/2024 Pain in right toe(s) (ICD-10 - M79.674) 01/31/2024 Pain in left toe(s) (ICD-10 - M79.675) 01/31/2024 Xerosis of skin (ICD-10 - L85.3) Plan Of Treatment Medication Medication Name Sig Start Date Stop Date Notes Ammonium Lactate 12 % 1 application Exte rnally Twice a day for 30 days Pending Test Test Name Order Date [id number] NAIL, 6 OR MORE 01/31/2024 15905-SJGE SKIN LESIONS, OVER 4 01/31/20 24 Next Appt Details Follow Up: prn, Reason: Provider Name:Osman Blanc , 11/03/2024 09:00:00 AM, [address] [place] [address], [phone], Procedure Notes * Category Sub-Category Detail Notes [...] as necessary. Patient chooses, no pharmaceutical tx (01659) Keratoma Treatment Parring or Cutting o f Benign Hyperkeratotic Lesion(s) 18530 ( >4 Lesions) - The Benign hyperkeratotic lesions, as described above were pared, and/or cut utilizing a sterile #15 blade, tissue nippers, and/or dremel, Q8 Progress Notes * Lynette SANCHEZ JrDOB:[birth year] (73 yo M)Acc No.[id number]:01/31/2024 Progress Note Patient:?Lynette Sanchez Provider:?Osman Blanc DPM :1950???Age:73 Y???Sex:Male Praveen e:01/31/2024 Address:[facility] [address] [id number] Pcp:Kleber Billy MD Subjective: * Chief Complaints: * ???At Risk FootcarePainful N ail(s) aggrevated by shoes and causing difficulty standing/walking.Skin problem(s) * HPI: ???At Risk footcare:?Pt States Last PCP Visit:?Date?12/26/2023 ???Skin problems:?Nature:?dryness , scaling.?Location:?B/L .?Duration:?several days.?Course:?worse.? * ROS:?General/Constitutional:?Nausea?denies.?Vomiting?denies.?Hunger Thirst?denies.?Loss appetite?denies.?Chills?denies.?Fatigue?denies.?Fever?denies.?Night Sweats?denies.?Unexplained weight loss?denies.?Unexplained [...] hip surgery 07/2015 * Hospitalization/Major Diagno stic Procedure:?[facility]- Unknown Headache Migraine for 5 days [...] a dayBenazepril HCl 20 MG Tablet Orally Taking Rosuvastatin Calcium 20 MG Tablet 1 tablet Orally Once a dayTaking Jessica Allergy 180 MG Tablet 1 tablet Orally Once a dayTaking Benazepril HCl 20 MG Tablet Orally Not-Taking/PRNSimvastatin 40 MG Tablet Orally Medication List [...] Left , Heel(s), B/L , Skin shows sign(s) of, dryness, scaling, in a stocking fashion, no fissure(s) present, B/L.? Assessment: * Assessment: 1.?Tinea unguium - B35.1?2.? Atherosclerosis of [place] artery of both lower extremities, with unspecified presence of clinical manifestation - I70.203 (Primary)?3.?Pain in right toe(s) - M79.674?4.?Pain in left toe(s) - M79.675?5.?Xerosis of skin - L85.3, Acute problem, Uncomplicated (3),Rx Management (4)? Plan: * Treatment: 2.?Tinea unguium?Procedure: 47377-HORZOBQ NAIL, 6 OR MORE 3.?Xerosis of skin? Start Ammonium Lactate Cream, 12 %, 1 application, Externally, Twice a day, 30 days, 60, Refills 2.?? * Procedures:?Debride Nail 6-10:?Nail debridement?Nail debridement performed extensively to reduce/remove overall nail length, girth, thickness, subungual debris, and necrotic tissue, by manual and electrical means through the use of a nail nipper and/or dremel, to more viable healthy nail plate or bed tissue 1-5. Silver nitrate used for any petechial bleeding as necessary. Patient chooses, no pharmaceutical tx (51393).?Keratoma Treatment:?Parring or Cutting of Benign Hyperkeratotic Lesion(s)?88527 ( >4 Lesions) - The Benign hyperkeratotic lesions, as described above were pared, and/or cut utilizing a sterile #15 blade, tissue nippers, and/or dremel, Q8.? * Procedure Codes:?06101 DEBRI DE NAIL, 6 OR MORE, Modifiers: XS 42479 TRIM SKIN LESIONS, OVER 4, Modifiers: XS , Q8 * Preventive Medicine:? ??Counseling:?Discussion:?-13: Office or other outpatient visit for the evaluation and management of an established patient, which required a medically appropriate history and/or examination and LOW level of DECISION MAKING for: 1 STABLE ACUTE UNCOMPLICATED PROBLEM, 2 OR MORE MINOR PROBLEMS, OR 1 STABLE CHRONIC PROBLEM, THAT POSE(S) A LOW RISK FOR MORBIDITY/MORTALITY. The visit on the day of the [...] have encouraged the patient to call the office.?Xerosis:?The patient was counseled on the diagnosis, potential etiologies, and treatment options for their skin condition. We discussed the risks and benefits of each option from performing no treatment, to utilizing OTC topical skin creams/ointments, to utilizing prescription topical creams/ointments, to utilizing customized compounded topical medications and use of nocturnal occlusion with any/all previously detailed therapies. We discussed the advantages and disadvantages of each possible treatment and importance for adherence to all the recommended therapies for optimum success and avoid potential complications such as open sore/infection/possible hospitalization. We discussed the potential effectiveness of each topical preparation as well as each ones possible side effects and/or patient medication interactions. Patient questions re: use, dosage, successful outcomes, and application consistency were reviewed and the patient verbalized that all answers were clearly understood. The patient has decided to apply Rx skin creams to their feet save the interspaces while paying special attention to the heels. Such was sent to their pharmacy at the time of visit.? * Follow Up:?prn * Images: * Sign off status: Completed Addendum: * ? true * Provider:Dorian Blanc DPM Date:?2023 Generated for Ally gomez/Leann/Maryjane on:?11/02/2024 06:42 AM EST History and Physical Notes * HPI (History of Present Illness) Category Sub-Category Detail Notes Category Not es Skin problems Nature: dryness , scaling Location: B/L Duration: several days Course: worse At Risk footcare Pt States Last PCP Visit: Date: 4 Examination Category Sub-Category Detail Notes Category Not es Dermatologic SKIN FINDINGS: Skin exam reveal s Keratotic lesion(s) located at, Dorsal, DIPJ, T4, SUB MTH (s), 1, B/L , SUB MTH (s), 5, B/L , SUB 5th MTBase, Left , Heel(s), B/L , Skin shows sign(s) of, dryness, scaling, in a stocking [...]
--- OUTSIDE RECORDS SUMMARY | 2024-11-02 06:42 | XMS_ITS | Encounter Summary ---
Author Name [facility] [place] Organization [place] Address [address] [place] [id number] Care Team Providers Care Device Test Engineer Name Role Phone YANETH JOE Primary [...] Name Patient's Relationship to Policy [facility] (WNR) MEDICARE ADVANTAGE [facility] (R) Oct 28, 2019 [id number] IVANA CAM JONAS PATIENT Selected Encounter This section includes the information on record at [place] for the Encounter. Date/Time Encounter Type Encounter Description Reason Provider Source Oct 05, 2024 02:00 PM GROUP PSYCHOTHERAPY [facility] ICD-10-CM F43.10 Post-traumatic stress disorder, unspecified MARK,ZEUS IE IHE Encounter Template Text not used by [place] Assessments - Encounter Diagnoses This section includes the primary and secondary diagnoses documented for the Encounter. Date/Time Primary/Secondary Diagnosis Diagnosis Name Provider Source Oct 06, 2024 07:57 AM PRIMARY Post-traumatic stress disorder, unspecified [facility] Plan of Treatment: Future Appointments (+ 6 months) and Future Tests (+/- 45 days) The Plan of Treatment section includes future care activities for the patient from all [place] [facility]. This section includes future appointments and future orders which are active, pending or scheduled. Future Appointments This section includes appointments that were scheduled to occur 6 months from the date of the Encounter, up to a maximum of 20 appointments. The data comes from all [place] treatment facilities. Appointment Date/Time Appointment Type Appointme nt Facility Name Oct 12, 2024 02:00 PM AMBULATORY - [place]IATRY [place] [facility] [place] [facility] Oct 19, 2024 02:00 PM AMBULATORY - PS[place]CHIATRY [place] [facility] [place] [facility] Oct 27, 2024 11:45 AM AMBULATORY - PS[place]CHIATRY [place] [facility] [place] [facility] Nov 02, 2024 02:00 PM AMBULATORY - PS[place]CHIATRY [place] [facility] [place] [facility] Nov 23, 2024 02:00 PM AMBULATORY - PS[place]CHIATRY [place] [facility] [place] [facility] Dec 29, 2024 08:30 AM AMBULATORY - NONE [place] [facility] [place] [facility] Jan 12, 2025 07:30 AM AMBULATORY - NONE [place] [facility] [facility] March 09, 2025 08:30 AM AMBULATORY - MEDICINE [place] [facility] [place] [facility] Active, Pending, and Scheduled Orders This section includes a listing of several types of active, pending, and scheduled orders, including clinic medications orders, diagnostic test orders, procedure orders and consult orders; where the start date of the order is 45 days before the date of the Encounter or 45 days after the date of theEncounter. The data comes from all [facility]. Test Date/Time Test Type Test Details Facility Name Sep 08, 2024 08:25 AM Consult Order COMMUNITY CARE-UROLOGY Cons Supervisor [employer] [place] [facility] Social History: Smoking Status (Most [...] place. Date/Time Current Smoking Status Comment Facil ity March 09, 2024 09:00 AM VA-TOBACCO FORMER USER [place] [facility] [facility] Tobacco Use History This section includes a history of the smoking, or tobacco-related health factors, that were collected on or before the date of the Encounter. The data comes from the [place] facility where the Encounter took place. Date/Time Smoking Status/Tobac co Use Comment Facility March 09, 2024 09:00 AM VA-TOBACCO QUIT 15 YRS OR MORE [place] [facility] [facility] March 18, 2023 02:30 PM VA-TOBACCO FORMER USER [place] [facility] [place] [facility] March 18, 2023 02:30 PM VA-TOBACCO QUIT 15 YRS OR MORE [place] [facility] [facility] Jan 11, 2022 08:30 AM VA-TOBACCO FORMER USER [place] [facility] [place] [facility] Jan 11, 2022 08:30 AM VA-TOBACCO QUIT 15 YRS OR MORE [place] [facility] [facility] Dec 26, 2020 09:00 AM VA-TOBACCO FORMER USER [place] [facility] [place] [facility] Dec 26, 2020 09:00 AM VA-TOBACCO QUIT 15 YRS OR MORE [place] [facility] [place] [facility] Dec 08, 2019 09:16 AM VA-TOBACCO FORMER USER [place] [facility] [place] [facility] Dec 08, 2019 09:16 AM VA-TOBACCO QUIT 15 YRS OR MORE [place] [facility] [facility] Oct 14, 2018 02:56 PM VA-TOBACCO FORMER USER [place] [facility] [place] [facility] Oct 14, 2018 02:56 PM VA-TOBACCO QUIT 15 YRS OR MORE [place] [facility] [facility] Dec 12, 2017 09:20 AM QUIT TOBACCO USE > 7 YEARS AGO quit > 30 yrs ( 2-3 pks a day) [place] [facility] [place] [facility] Advance Directives: All historical and [...] 09, 2019 ADVANCE DIRECTIVE VAN MORENO [facility] Feb 08, 2019 ADVANCE DIRECTIVE SAMM BRINK [facility] Encounter Notes: All associated encounter notes This section contains the clinical notes associated to the Encounter. Date/Time Encounter Note(s) Provider Source Oct 05, 2024 02:00 PM SOCIAL WORK GROUP COUNSELING NOTE: LOCAL TITLE: SOCIAL WORK GROUP NOTE STANDARD TITLE: SOCIAL WORK GROUP COUNSELING NOTE DATE OF NOTE: OCT 05, 2024@14:00 ENTRY DATE: OCT 06, 2024@07:48:23 AUTHOR: MANDY FLORES COSIGNER: URGENCY: STATUS: COMPLETED This was a 60-minute supportive psychotherapy group for [place] Veterans with PTSD. 9 members were present today. Topics discussed today included: [ x] health/mental health issues and concerns of members and loved ones. [ x ] activities of daily living, including volunteering, socialization, trying of new activities, and family gatherings [ x ] grief and loss, including of family, friends, and/or other veterans. [ x ] substance use, including coping skills to maintain sobriety or address recent use [ ] managing PTSD symptoms [ x ] [place] specific resources [ ] anger management [x] aging related issues including memory/cognitive decline. Members provided one another with support and feedback. Next group will be 10/12/24 reported he was doing well with no new problems or concerns. He was attentive and participatory. /gio/ ANSHU CHAVEZ CLINICAL BUSH REGENERATOR Signed: 10/06/2024 07:58 MANDY FLORES [facility]
--- OUTSIDE RECORDS SUMMARY | 2024-11-02 06:42 | XMS_ITS | Patient Health Record ---
Author Organization [facility] [place] Address [address] [place] [address] Care Team Providers Care Senior Integration Developer Name Role Phone Kleber Billy MD Primary Care Provider Osman Rowell Unavailable [phone] Allergies Allergen (clinical drug ingredient) Drug/Non Drug Allergy documented on EMR Reaction Allergy Type Onset Date Status Seasonale Unknown Drug Allergy Active shrimp allergenic extract Shrimp (Diagnostic) swelling Drug Allergy Active Shellfish (FN) Shellfish-derived Products swelling Drug Allergy Active Reason For Referral No Information Medications Medication SIG (Take, Route, Frequency, Duration) [...] THE FEET TWICE DAILY for 30 Active Immunizations Vaccine Route Administration Date Status Comme nts COVID-19 Moderna Vaccine Unknown 09/09/2021 Administered 1st 12/07/2020 2nd 01/04/2021 Social History Tobacco Use: Social History Observation [...] Are you an other tobacco user? No Problems Problem Type SNOMED Code ICD Code Onset Dates Problem Status W/U Status Risk Notes Problem Atherosclerosis of [place] arteries of the extremities ([id number]) Atherosclerosis of [place] artery of both lower extremities, with unspecified presence of clinical manifestation (I70.203) Active confirmed Vital Signs Blood pressure diastolic 80 mm Hg 07/28/2024 Height 6ft 2in in 07/28/2024 Blood pressure systolic 120 mm Hg 07/28/2024 Weight 186 lbs 07/28/2024 BMI 23.88 kg/m2 07/28/2024 Procedures Procedure Date Ordered Date Performed Result Body Sit e 16633-UHRAMXB NAIL, 6 OR MORE 01/31/2024 N/A 02300-TZEL SKIN LESIONS, OVER 4 01/31/2024 N/A 79159-AIMLONS NAIL, 6 OR MORE 05/05/2024 N/A 65838-VIHE SKIN LESIONS, OVER 4 05/05/2024 N/A 09646-RNSEBIU NAIL, 6 OR MORE 07/28/2024 N/A 17621-XENK SKIN LESIONS, OVER 4 07/28/2024 N/A Encounters Encounter Location Date Provider Diagnosis [address] [address] 01/31/2024 Osman Blanc Atherosclerosis of [place] artery of both lower extremities, with unspecified presence of clinical manifestation I70.203 ; Tinea unguium B35.1 ; Pain in right toe(s) M79.674 ; Pain in left toe(s) M79.675 and Xerosis of skin L85.[address] [address] 05/05/2024 Osman Jayashree Atherosclerosis of [place] artery of both lower extremities, with unspecified presence of clinical manifestation I70.203 ; Tinea unguium B35.1 ; Pain in right toe(s) M79.674 ; Pain in left toe(s) M79.675 and Xerosis of skin L85.[address] [address] 07/28/2024 Osman Jayashree Atherosclerosis of [place] artery of both lower extremities, with unspecified presence of clinical manifestation I70.203 ; Tinea unguium B35.1 ; Pain in right toe(s) M79.674 and Pain in left toe(s) M79.675 Assessments Encounter Date Diagnosis (ICD Code) Assessment Notes Treatment Notes Treatment Clinical Notes Section Notes 01/31/2024 Tinea unguium (ICD-10 - B35.1) 01/31/2024 Atherosclerosis of [place] artery of both lower extremities, with unspecified presence of clinical manifestation (ICD-10 - I70.203) 05/05/2024 Tinea unguium (ICD-10 - B35.1) 05/05/2024 Atherosclerosis of [place] artery of both lower extremities, with unspecified presence of clinical manifestation (ICD-10 - I70.203) 07/28/2024 Tinea unguium (ICD-10 - B35.1) 07/28/2024 Atherosclerosis of [place] artery of both lower extremities, with unspecified presence of clinical manifestation (ICD-10 - I70.203) 07/28/2024 Pain in right toe(s) (ICD-10 - M79.674) 05/05/2024 Pain in right toe(s) (ICD-10 - M79.674) 01/31/2024 Pain in right toe(s) (ICD-10 - M79.674) 05/05/2024 Pain in left toe(s) (ICD-10 - M79.675) 01/31/2024 Pain in left toe(s) (ICD-10 - M79.675) 07/28/2024 Pain in left toe(s) (ICD-10 - M79.675) 05/05/2024 Xerosis of skin (ICD-10 - L85.3) 01/31/2024 Xerosis of skin (ICD-10 - L85.3) Plan Of Treatment Pending Test Test Name Order Date 40278-BXQIGPL NAIL, 6 OR MORE 04/10/2022 00408-IHVWEAZ NAIL, 6 OR MORE 07/10/2022 00667-RYIAXZS NAIL, 6 OR MORE 10/12/2022 38600-VVZKOBS NAIL, 6 OR MORE 01/25/2023 24145-ARSOIDS NAIL, 6 OR MORE 04/23/2023 43493-WJRUODT NAIL, 6 OR MORE 07/26/2023 46111-XTQVNBZ NAIL, 6 OR MORE 11/01/2023 90835-TCDWAGX NAIL, 6 OR MORE 01/31/2024 55667-VVLTXWX NAIL, 6 OR MORE 05/05/2024 32371-MCWAGYJ NAIL, 6 OR MORE 07/28/2024 52684-XJWJ SKIN LESIONS, OVER 4 07/28/20 24 11210-CKXI SKIN LESIONS, OVER 4 05/05/20 24 15151-VUYH SKIN LESIONS, OVER 4 01/31/20 24 54757-MRSZ SKIN LESIONS, OVER 4 11/01/19 24 21994-XJZZ SKIN LESIONS, OVER 4 07/26/20 23 02078-LEJD SKIN LESIONS, OVER 4 04/23/20 23 55398-ZYJU SKIN LESIONS, OVER 4 01/26/20 23 02216-DSWO SKIN LESIONS, OVER 4 10/12/20 44395-RNFP SKIN LESIONS, OVER 4 07/10/20 38315-HJHJ SKIN LESIONS, OVER 4 04/10/20 Next Appt Details Provider Name:Osman Sierra Jayashree , 11/03/2024 09:00:00 AM, [address] [place], [address], Insurance Providers Payer Name Payer Address Payer Phone Subscriber Number Group Number Insured Name Patient Relationship to Insured Coverage Start Date Coverage End Date [employer] Medicare [id number] [address] [address] [place] [address] [id number] Lynette Sanchez Self - patient is the insured Medical (General) History Medical History History ICD Code high blood pressure measles chicken pox bone implants Joint implants/screws Cholesterol Surgical History Surgery Date(Month/Year) right hip surgery 07/2015 Hospitalization History Reason Date(Month/Year) [facility] [place] [facility]- Unknown Headache Ede natalie for 5 days same day took off med simvastatin 12/25/22
--- OUTSIDE RECORDS SUMMARY | 2024-11-02 06:42 | XMS_ITS ---
Author Name [facility] [place] [facility] [place] Organization [place] Address [address] [place] [address] Care Team Providers Care Greenhouse Florist Name Role Phone YANETH JOE Primary Care [...] Name Patient's Relationship to Policy [facility] (WNR) MEDICARE ADVANTAGE [facility] (WNR) Oct 28, 2019 [id number] IVANA CAM JONAS PATIENT Selected Encounter This section includes the information on record at [place] for the Encounter. Date/Time Encounter Type Encounter Description Reason Provider Source Oct 19, 2024 02:00 PM GROUP PSYCHOTHERAPY [facility] ICD-10-CM F43.10 Post-traumatic stress disorder, unspecified MARK,ZEUS IE IHE Encounter Template Text not used by [place] Assessments - Encounter Diagnoses This section includes the primary and secondary diagnoses documented for the Encounter. Date/Time Primary/Secondary Diagnosis Diagnosis Name Provider Source Oct 19, 2024 04:15 PM PRIMARY Post-traumatic stress disorder, unspecified MARK[facility] Plan of Treatment: Future Appointments (+ 6 months) and Future Tests (+/- 45 days) The Plan of Treatment section includes future care activities for the patient from all [place] [facility]. This section includes future appointments and future orders which are active, pending or scheduled. Future Appointments This section includes appointments that were scheduled to occur 6 months from the date of the Encounter, up to a maximum of 20 appointments. The data comes from all [facility]. Appointment Date/Time Appointment Type Appointme nt Facility Name Oct 27, 2024 11:45 AM [facility] Nov 02, 2024 02:00 PM [facility] Nov 23, 2024 02:00 PM [facility] Dec 29, 2024 08:30 AM [facility] Jan 12, 2025 07:30 AM [facility] March 09, 2025 08:30 AM [facility] Active, Pending, and Scheduled Orders This section includes a listing of several types of active, pending, and scheduled orders, including clinic medications orders, diagnostic test orders, procedure orders and consult orders; where the start date of the order is 45 days before the date of the Encounter or 45 days after the date of theEncounter. The data comes from all [facility]. Test Date/Time Test Type Test Details Facility Name Sep 08, 2024 08:25 AM Consult Order COMMUNITY CARE-UROLOGY Cons Vice President Digital Strategist's Choice [facility] Social History: Smoking Status (Most [...] 09, 2024 09:00 AM VA-TOBACCO FORMER USER [facility] Tobacco Use History This section includes a history of the smoking, or tobacco-related health factors, that were collected on or before the date of the Encounter. The data comes from the [place] facility where the Encounter took place. Date/Time Smoking Status/Tobac co Use Comment Facility March 09, 2024 09:00 AM VA-TOBACCO QUIT 15 YRS OR MORE [place] [facility] [place] [facility] March 18, 2023 02:30 PM VA-TOBACCO FORMER USER [place] [facility] [place] [facility] March 18, 2023 02:30 PM VA-TOBACCO QUIT 15 YRS OR MORE [place] [facility] [place] [facility] Jan 11, 2022 08:30 AM VA-TOBACCO FORMER USER [facility] [place] [facility] Jan 11, 2022 08:30 AM VA-TOBACCO QUIT 15 YRS OR MORE [facility] [place] [facility] Dec 26, 2020 09:00 AM VA-TOBACCO FORMER USER [place] [facility] [place] [facility] Dec 26, 2020 09:00 AM VA-TOBACCO QUIT 15 YRS OR MORE [place] [facility] [place] [facility] Dec 08, 2019 09:16 AM VA-TOBACCO FORMER USER [place] [facility] [place] [facility] Dec 08, 2019 09:16 AM VA-TOBACCO QUIT 15 YRS OR MORE [place] [facility] [place] [facility] Oct 14, 2018 02:56 PM VA-TOBACCO FORMER USER [facility] [place] [facility] Oct 14, 2018 02:56 PM VA-TOBACCO QUIT 15 YRS OR MORE [place] [facility] [place] [facility] Dec 12, 2017 09:20 AM QUIT TOBACCO USE > 7 YEARS AGO quit > 30 yrs ( 2-3 pks a day) [place] [facility] [place] [facility] Advance Directives: All historical and [...] DIRECTIVE VAN MORENO [place] [facility] [place] [facility] Feb 08, 2019 ADVANCE DIRECTIVE SAMM BRINK V A [facility] [place] [facility] Encounter Notes: All associated encounter notes This section contains the clinical notes associated to the Encounter. Date/Time Encounter Note(s) Provider Source Oct 19, 2024 02:00 PM SOCIAL WORK GROUP COUNSELING NOTE: LOCAL TITLE: SOCIAL WORK GROUP NOTE STANDARD TITLE: SOCIAL WORK GROUP COUNSELING NOTE DATE OF NOTE: OCT 19, 2024@14:00 ENTRY DATE: OCT 19, 2024@16:10:57 AUTHOR: MANDY FLORES EXP COSIGNER: URGENCY: STATUS: [...] including of family, friends, and/or other veterans. [x ] substance use, including coping skills to maintain sobriety or address recent use [ ] managing PTSD symptoms [ x ] specific resources [ ] anger management [ x ] aging related issues including memory/cognitive decline. Members provided one another with support and feedback. Next group will be 10/26/2024 [place] talked about his sister's dementia and his experience of her decline. He shared the stressors of it and how he cares for her. /gio/ MANDY FLORES [facility] CLINICAL WHITE [employer] APPLIANCE TECH Signed: 10/19/2024 16:16 MANDY FLORES [place] [facility]
--- OUTSIDE RECORDS SUMMARY | 2024-11-02 06:42 | XMS_ITS ---
Author Name [facility] [place] [place] [facility] [place] Organization [facility] [place] Address [address] [place] [address] Care Team Providers Care Framing Inspector Name Role Phone YANETH JOE Primary [...] Policy 's Name Patient's Relationship to Policy [facility] ([facility]) MEDICARE ADVANTAGE [facility] ([facility]) Oct 28, 2019 [id number] IVANA CAM PATIENT Selected Encounter This section includes the information on record at [place] for the Encounter. Date/Time Encounter Type Encounter Description Reason Provider Source Oct 15, 2024 02:18 PM QNHP OL DIG ASSMT&MGMT 21+ PCMHI INDIV ICD-10-CM F43.12 Post-traumatic stress disorder, chronic JOELLEN BARNES Ayah Encounter Template Text not used by [place] Assessments - Encounter Diagnoses This section includes the primary and secondary diagnoses documented for the Encounter. Date/Time Primary/Secondary Diagnosis Diagnosis Name Provider Source Oct 16, 2024 11:06 AM PRIMARY Post-traumatic stress disorder, JOELLEN Govea [facility] Plan of Treatment: Future Appointments (+ 6 months) and Future Tests (+/- 45 days) The Plan of Treatment section includes future care activities for the [facility] [place] [facility] This section includes future appointments and future orders which are active, pending or scheduled. Future Appointments This section includes appointments that were scheduled to occur 6 months from the date of the Encounter, up to a maximum of 20 appointments. The data comes from all [place] treatment facilities. Appointment Date/Time Appointment Type Appointme nt Facility Name Oct 19, 2024 02:00 PM AMBULATORY - PSYCHIATRY [facility] Oct 27, 2024 11:45 AM [facility] Nov 02, 2024 02:00 PM [facility] Nov 23, 2024 02:00 PM AMBULATORY - PSYCHIATRY [place] [facility] [place] [facility] Dec 29, 2024 08:30 AM [facility] - NONE [facility] Jan 12, 2025 07:30 AM AMBULATORY - NONE [facility] March 09, 2025 08:30 AM AMBULATORY - MEDICINE [facility] Active, Pending, and Scheduled Orders This section includes a listing of several types of active, pending, and scheduled orders, including clinic medications orders, diagnostic test orders, procedure orders and consult orders; where the start date of the order is 45 days before the date of the Encounter or 45 days after the date of theEncounter. The data comes from all [facility]. Test Date/Time Test Type Test Details Facility Name Sep 08, 2024 08:25 AM Consult Order COMMUNITY CARE-UROLOGY Cons Institutional Cook's Choice [facility] Social History: Smoking Status (Most current) and Tobacco Use (All prior to encounter date) This section includes the most current, and the historical, smoking and tobacco- related health factors from the [place] facility where the Encounter took place. Current Smoking Status This section includes the most current smoking, or tobacco-related health factor, from the [place] facility where the Encounter took place. Date/Time Current Smoking Status Comment Tristan ity March 09, 2024 09:00 AM VA-TOBACCO FORMER USER [facility] Tobacco Use History This section includes a history of the smoking, or tobacco-related health factors, that were collected on or before the date of the Encounter. The data comes from the [place] facility where the Encounter took place. Date/Time Smoking Status/Tobac co Use Comment Facility March 09, 2024 09:00 AM VA-TOBACCO QUIT 15 YRS OR MORE [place] [facility] [place] [facility] March 18, 2023 02:30 PM VA-TOBACCO FORMER USER [place] [facility] [place] [facility] March 18, 2023 02:30 PM VA-TOBACCO QUIT 15 YRS OR MORE [place] [facility] [place] [facility] Jan 11, 2022 08:30 AM VA-TOBACCO FORMER USER [place] [facility] [place] [facility] Jan 11, 2022 08:30 AM VA-TOBACCO QUIT 15 YRS OR MORE [place] [facility] [place] [facility] Dec 26, 2020 09:00 AM VA-TOBACCO FORMER USER [place] [facility] [place] [facility] Dec 26, 2020 09:00 AM VA-TOBACCO QUIT 15 YRS OR MORE [place] [facility] [place] [facility] Dec 08, 2019 09:16 AM VA-TOBACCO FORMER USER [place] [facility] [place] [facility] Dec 08, 2019 09:16 AM VA-TOBACCO QUIT 15 YRS OR MORE [place] [facility] [place] [facility] Oct 14, 2018 02:56 PM VA-TOBACCO FORMER USER [place] [facility] [place] [facility] Oct 14, 2018 02:56 PM VA-TOBACCO QUIT 15 YRS OR MORE [place] [facility] [place] [facility] Dec 12, 2017 09:20 AM QUIT TOBACCO USE > 7 YEARS AGO quit > 30 yrs ( 2-3 pks a day) [facility] [place] [facility] Advance Directives: All historical and current Section Date Range: From patient's date of to the date document was created. This section includes ALL of a patient's completed or amended [place] Advance and Rescinded Directives. The entries below indicate that a directive exists for the patient, but an actual copy is not included with this document. The data comes from all [place] facilities. Date Advance Directives Provider Source Feb 09, 2019 ADVANCE DIRECTIVE VAN MORENO [facility] Feb 08, 2019 ADVANCE DIRECTIVE SAMM BRINK [facility] Encounter Notes: All associated encounter notes This section contains the clinical notes associated to the Encounter. Date/Time Encounter Note(s) Provider Source Oct 15, 2024 02:18 PM MENTAL HEALTH CONS ULT: LOCAL TITLE: PC-MH INTEGRATION/CONSULT REPORT STANDARD TITLE: MENTAL HEALTH CONSULT DATE OF NOTE: OCT 15, 2024@14:18:08 ENTRY DATE: OCT 15, 2024@14:19:26 AUTHOR: JOELLEN BARNES EXP COSIGNER: URGENCY: STATUS: COMPLETED PC-MH INTEGRATION/CONSULT REPORT Has ADDENDA Roller Leveler Operator has reviewed chart for course of treatment in mental health for PCP to review and consider for management of their psychiatric medication)s) in primary care. is prescribed prazosin for a diagnosis of chronic PTSD, a service connected condition. Summary is as follows: Psychiatric course of treatment: current medication: prazosin since 2017 with no dose adjustments past trials: naltrexone in 2019 Psychotherapy course of treatment: [place] support group since 2018 and still attends Current reported symptoms: no alcohol since 2019 PTSD stable and manageable sleeps well walks daily Forwarding to PCP for review and consideration. Decision making power to accept transfer rests with the PCP. Please inform either way. Roller Leveler Operator is willing to see post-transfer if need be. Time spent on chart review: 30 minutes /pepper Barnes BS RN PCMHI CARRIAGE OPERATOR Signed: 10/16/2024 11:09 Receipt Acknowledged By: 10/16/2024 12:07 /gio/ YANETH JOE D.O. PHYSICIAN 10/27/2024 ADDENDUM STATUS: COMPLETED ok for primary care to take over prazosin RX /gio/ YANETH JOE D.O. PHYSICIAN Signed: 10/27/2024 09:15 JOELLEN BARNES [facility]
--- OUTSIDE RECORDS SUMMARY | 2024-11-02 06:42 | XMS_ITS ---
Author Name [facility] [place] Organization [place] Address [address] [place] [address] Care Team Providers Care District Sales Representative Name Role Phone YANETH JOE Primary Care [...] Name Patient's Relationship to Policy [facility] ([facility]) MEDICARE ADVANTAGE [facility] ([facility]) Oct 28, 2019 [id number] IVANA CAM PATIENT Selected Encounter This section includes the information on record at [place] for the Encounter. Date/Time Encounter Type Encounter Description Reason Provider Source Oct 27, 2024 11:45 AM HC PRO PHONE CALL 5-10 MIN TELEPHONE ICD-10-CM F43.12 Post-traumatic stress disorder, chronic LIZZIE BRANES Ayah Encounter Template Text not used by [place] Assessments - Encounter Diagnoses This section includes the primary and secondary diagnoses documented for the Encounter. Date/Time Primary/Secondary Diagnosis Diagnosis Name Provider Source Oct 27, 2024 11:45 AM PRIMARY Post-traumatic stress disorder, chronic LIZZIE BARNES [facility] Plan of Treatment: Future Appointments (+ 6 months) and Future Tests (+/- 45 days) The Plan of Treatment section includes future care activities for the patient from all [place] treatmentfacilities. This section includes future appointments and future orders which are active, pending or scheduled. Future Appointments This section includes appointments that were scheduled to occur 6 months from the date of the Encounter, up to a maximum of 20 appointments. The data comes from all [place] treatment facilities. Appointment Date/Time Appointment Type Appointme nt Facility Name Nov 02, 2024 02:00 PM AMBULATORY - PS[place]CHIATRY [place] [facility] [place] [facility] Nov 23, 2024 02:00 PM AMBULATORY - PSYCHIATRY [place] [facility] [place] [facility] Dec 29, 2024 08:30 AM AMBULATORY - NONE [facility] [place] [facility] Jan 12, 2025 07:30 AM AMBULATORY - NONE [place] [facility] [place] [facility] March 09, 2025 08:30 AM AMBULATORY - MEDICINE [place] [facility] Social History: Smoking Status [...] took place. Date/Time Current Smoking Status Comment [facility] March 09, 2024 09:00 AM VA-TOBACCO FOR[facility] Tobacco Use History This section includes a history of the smoking, or tobacco-related health factors, that were collected on or before the date of the Encounter. The data comes from the [place] facility where the Encounter took place. Date/Time Smoking Status/Tobac co Use Comment Facility March 09, 2024 09:00 AM VA-TOBACCO QUIT 15 YRS OR MORE [place] [facility] [place] [facility] March 18, 2023 02:30 PM VA-TOBACCO FORMER USER [place] [facility] [place] [facility] March 18, 2023 02:30 PM VA-TOBACCO QUIT 15 YRS OR MORE [place] [facility] [place] [facility] Jan 11, 2022 08:30 AM VA-TOBACCO FORMER USER [place] [facility] [place] [facility] Jan 11, 2022 08:30 AM VA-TOBACCO QUIT 15 YRS OR MORE [place] [facility] [place] [facility] Dec 26, 2020 09:00 AM VA-TOBACCO FORMER USER [place] [facility] [place] [facility] Dec 26, 2020 09:00 AM VA-TOBACCO QUIT 15 YRS OR MORE [place] [facility] [place] [facility] Dec 08, 2019 09:16 AM VA-TOBACCO FORMER USER [place] [facility] [place] [facility] Dec 08, 2019 09:16 AM VA-TOBACCO QUIT 15 YRS OR MORE [place] [facility] [place] [facility] Oct 14, 2018 02:56 PM VA-TOBACCO FORMER USER [place] [facility] [place] [facility] Oct 14, 2018 02:56 PM VA-TOBACCO QUIT 15 YRS OR MORE [place] [facility] [place] [facility] Dec 12, 2017 09:20 AM QUIT TOBACCO USE > 7 YEARS AGO quit > 30 yrs ( 2-3 pks a day) [facility] Advance Directives: All historical and [...] Feb 09, 2019 ADVANCE DIRECTIVE VAN MORENO [facility] Feb 08, 2019 ADVANCE DIRECTIVE [facility] Encounter Notes: All associated encounter notes This section contains the clinical notes associated to the Encounter. Date/Time Encounter Note(s) Provider Source Oct 27, 2024 01:12 PM MENTAL HEALTH COMMUNICATION NOTE: LOCAL TITLE: PRIMARY MENTAL HEALTH CONTACT NOTE STANDARD TITLE: MENTAL HEALTH COMMUNICATION NOTE DATE OF NOTE: OCT 27, 2024@13:12:26 ENTRY DATE: OCT 27, 2024@13:12:59 AUTHOR: LIZZIE BARNES COSIGNER: URGENCY: STATUS: COMPLETED Electrostatic Powder Coating Technician called [place] post transfer to primary care for their psychotropic medication(s). is prescribed prazosin for a diagnosis of chronic PTSD. PTSD is a service connected condition. 's identity verified through name and . was informed of the transfer of their psychotropic medication to primary care. Huntington was educated as to the side effects of their medication. [place] reported no side effects and reported being stable on their medication. was educated that they can reengage in mental health care in the mental health clinic should the need arise. Huntington was given signwriter's direct extension should they have concerns with their medication in the future. Time Spent: 5 minutes on telephone, 3 minutes on post visit documentation /es/ Lizzie PEREZ RN PCMHI VICE PRESIDENT OF CONSULTING SERVICES Signed: 10/29/2024 08:48 LIZZIE BARNES [facility]
--- OUTSIDE RECORDS SUMMARY | 2024-11-02 06:43 | XMS_ITS | Patient Health Record ---
Author Organization [facility] Address [address] [place] [address] Care Team Providers Care Oracle Analyst Name Role Phone Wenceslao MALHOTRA, Kleber Primary Care Provider Michael Daily [phone] ALLERGIES Allergen (clinical drug ingredient) Drug/Non Drug Allergy documented on EMR Reaction Allergy Type Onset Date Status Shellfish (FN) Shellfish-derived Products Unknown Drug Allergy Active bee pollen Bee Pollen Unknown Drug Allergy Activ e REASON FOR REFERRAL No Information MEDICATIONS Medication SIG (Take, Route, Frequency, Duration) Notes Start Date End Date Status Benazepril HCl 20 MG 1 tablet Orally Onc e a day for 30 day(s) Active Atorvastatin Calcium 40 MG TAKE 1 TABLET BY MOUTH DAILY Oral for 90 Active Jessica Allergy 60 MG 1 tablet as needed Orally Twice a day Active IMMUNIZATIONS Vaccine Route Administration Date Status Comme nts Influenza Unknown 08/05/2018 Administered Influenza Unknown 07/28/2020 Administered SOCIAL HISTORY Tobacco Use: Social History Observation Description Date Details (start date - stop date) Former Smoker NA - NA Sex Assigned At : Social History Observation Description Sex Assigned At Unknown Tobacco Use/Smoking Question Answer Notes Patient is a former smoker How long has it been since you last smoked? > 10 years Alcohol Screen Question Answer Notes Did you have a drink containing alcohol in the p ast year? No Points 0 Interpretation Negative PROBLEMS Problem Type ICD Code Onset Dates Problem Status W/U Status Risk SNOMED Code Notes Problem Encounter for screening for malignant neoplasm of colon (Z12.11) Active confirmed 934888406 Problem Preprocedural examination (Z01.818) Active confirmed 464676289983276 Problem Alcohol-induced acute pancreatitis, 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) Active confirmed 948359498 Problem Elevated liver function tests (R79.89) Active confirmed 472849754 PLAN OF TREATMENT Pending Test Test Name Order Date LIVER PROFILE 02/28/2023 US ABD 02/28/2023 Future Test Test Name Order Date COLONOSCOPY 11/10/2020 Insurance Providers Payer Name Payer Address Payer Phone Subscriber Number Group Number Insured Name Patient Relationship to Insured Coverage Start Date Coverage End Date [facility] [address] [address] [place] [address] [id number] HIGINIO CAM Self - patient is the insured MEDICAL (GENERAL) HISTORY Medical History History ICD Code Denies [place],DM,CVA,Lung disease,renal dise ase HTN Hyperlipidemia Neg. screening colonoscopy in 08/2010 an d in 10/2020 Pancreatitis in 2018 due to EtOH Diverticulosis Aseptic necrosis R/hip Surgical History Surgery Date(Month/Year) Right hip replacement 08/2005 Tonsillectomy
[2024-11-02 06:53] LABS: MANUAL DIFF FLAG NO
[2024-11-02 08:22] LABS: Basophils Absolute Auto 0.1 X10*3/uL (0.0-0.2); Basophils Percent Auto 0.9 % (0-2); Eosinophils Absolute Auto 0.1 X10*3/uL (0.0-0.4); Eosinophils Percent Auto 2.6 % (0-4); Hematocrit 41.6 % (42.0-52.0); Hemoglobin 13.6 g/dl (14.0-18.0); Imm Gran Abs Auto 0.02 X10*3/uL (0.00-0.03); Imm Gran Pct Auto 0.4 % (0.0-0.4); Lymphocytes Absolute Auto 2.4 X10*3/uL (1.2-4.9); Lymphocytes Percent Auto 43.6 % (20-40); Mean Corpuscular HGB Conc 32.7 g/dl (31.0-36.0); Mean Corpuscular Hemoglobin 25.4 pg (27.0-33.0); Mean Corpuscular Volume 77.6 fL (80.0-98.0); Mean Platelet Volume 9.3 fL (9.4-12.4); Monocytes Absolute Auto 0.5 X10*3/uL (0.1-1.2); Monocytes Percent Auto 8.9 % (2-11); Neutrophils Absolute Auto 2.4 x10*3/uL (2.0-8.3); Neutrophils Percent Auto 43.6 % (45-73); Platelet Count 255 X10*3/uL (160-400); Red Blood Count 5.36 X10*6/uL (4.60-5.80); Red Cell Distribution Width 14.8 % (11.0-16.0); White Blood Count 5.5 X10*3/uL (4.8-10.8)
[2024-11-02 09:11] LABS: Alanine Aminotransferase 40 U/L (0-40); Albumin Level 3.9 g/dL (3.5-5.0); Alkaline Phosphatase 81 U/L (39-117); Anion Gap 11 (12-20); Aspartate Amino Transferase 30 U/L (5-37); Bilirubin Total 0.5 mg/dL (0.0-1.0); Blood Urea Nitrogen 21 mg/dL (9-16); Calcium 9.4 mg/dL (8.4-10.2); Carbon Dioxide 27 mmol/L (22-29); Chloride 109 mmol/L (96-108); Cholesterol 184 mg/dL (<200); Estimated Glomerular Filt Rate > 60; Glucose Fasting 90 mg/dL (60-99); HDL Cholesterol 58 mg/dL (>40); LDL Cholesterol Calculated 115 mg/dL (<100); Potassium 4.3 mmol/L (3.3-5.1); Sodium 143 mmol/L (135-145); Total Protein 7.4 g/dL (6.5-8.0); Triglycerides 57 mg/dL (<150)
[2024-11-02 09:46] LABS: Prostate Specific Antigen Scr 7.31 ng/mL (<0.05-4.0)
== END 2024-11-02 06:36 | disposition home or self-care (01) ==
LOC: HO.LAB 06:35
PROVIDERS: PCP Internal Medicine; Visit Provider Internal Medicine
DX: Z13.220 Encounter for screening for lipoid disorders (principal); Z00.00 Encounter for general adult medical examination without abnormal findings; Z13.0 Encounter for screening for diseases of the blood and blood-forming organs and certain disorders involving the immune mechanism; Z12.5 Encounter for screening for malignant neoplasm of prostate
CPT/HCPCS: 36415; 80053; 80061; 84153; 85025

== ENCOUNTER 2024-11-04 08:50 | Outpatient (AMB) | payer MEDICARE, SELFPAY ==
[2024-11-04 08:53] VITALS: BP 118/80; PULSE 70; O2SAT 92; BMI 23.6
--- NOTE | 2024-11-04 08:53 | A.OFFPC_ITS ---
Vital Signs 11/04/24 08:53 Height 6 ft 2 in Weight 184 lb BMI 23.6 BP 118/80 Blood Pressure Location Lt brachial Position Sitting Pulse 70 Pulse Source Pulse Oximeter Pulse Oximetry (%) 92 Oxygen Delivery Method Room Air Intake Visit Reasons: 4mt f/u Vasc Tech Required: No Accompanied by: Self / Same As Patient Allergies bee pollen [BEE STINGS] Allergy (Mild, Verified 11/04/24 08:56) SWELLING SHELLFISH Allergy (Severe, Uncoded 11/04/24 08:56) SWELLING Medication List - Last Reconciled 11/04/24 by Kleber Billy MD amlodipine 5 mg PO DAILY benazepril 20 mg PO DAILY fexofenadine (Jessica Allergy) 180 mg PO DAILY rosuvastatin 20 mg PO DAILY Tobacco use date assessed: 11/04/24 Fall risk assessment: No Falls in past year Last assessed Fall Risk: 11/04/24 Dental Screening Dental Screen Date: 11/04/24 Did you have a dental visit in the last 12 months?: Yes Did you have a dental problem in the last 6 months where you did not have access to dental care?: No Was dental information given to patient?: Patient has dentist HPI 4mt f/u HPI Details hypertension on rx; doing well and compliant [facility] Medical History Hx of pancreatitis Hyperlipidemia HTN (hypertension) Surgical History Hx of colonoscopy History of arthroplasty of right hip History of rectal polypectomy History of tonsillectomy Family History Father Diabetes Hypertension Prostate cancer Mother Alzheimers disease Social History Housing: House Are you a primary hospice spiritual care coordinator to a significant other at home: No Do you presently have visiting nurse or other home services: No Alcohol intake: former Year quit: 2018 Patient Tobacco Use Status: Former Tobacco user Tobacco use type: Cigarette e-Cigarette/Vaping Use: Never Used Second Hand Smoke Exposure: No service: No Current occupational status: retired Cognitive needs: No Hearing needs: Yes (hearing aides) Vision needs: Yes (glasses) Questionnaire PHQ-9 Over the last 2 weeks, how often have you been bothered by any of the following problems? 1. Little interest or pleasure in doing things: not at all 2. Feeling down, depressed, or hopeless: not at all 3. Trouble falling or staying asleep, or sleeping too much: not at all 4. Feeling tired or having little energy: not at all 5. Poor appetite or overeating: not at all 6. Feeling bad about yourself - or that you are a failure or have let yourself or your family down: not at all 7. Trouble concentrating on things, such as reading the newspaper or watching television: not at all 8. Moving or speaking so slowly that other people could have noticed. Or the opposite - being so fidgety or restless that you have been moving around a lot more than usual: not at all 9. Thoughts that you would be better off or of hurting yourself in some way: not at all Total score: 0 Depression Screening Interpretation: Negative Depression Screening Done: Yes 17551 - PHQ-9 Billing: Yes Source: Developed by Drs. Michael Anaya, Eladia Wallace, Orlando Coats and colleagues, with an educational rachel from [employer]. Thrive Questionnaire Date Thrive assessed: 11/04/24 I am a: Patient What is your living situation today?: I have a steady place to live Within the past 12 months, did the food you bought not last and you didn't have the money to get more?: Never true Within the past 12 months, did you worry whether your food would run out before you got money to buy more?: Never true Do you have trouble paying for medicines?: No Do you have trouble getting transportation to medical appointments?: No Do you have trouble paying your heating and electricity bill?: No Do you have trouble taking care of your child, family member or friend?: No Do you have trouble with day-to-day activities such as bathing, preparing meals, shopping, managing finances, etc.?: No Are you currently unemployed and looking for a job?: No Are you interested in more education?: No Please select the resources that you would like help with: None Currently or been in a relationship where the following occur: No concerns reported THRIVE Score: 0 AUDIT C Alcohol Use Questionnaire (AUDIT-C) 1. How often do you have a drink containing alcohol?: Never Total Score: 0 RADHA-7 AMB Questionnaire RADHA-7 Date RADHA - 7 assessed: 11/04/24 Feeling nervous, anxious, or on edge: 0 = Not at all Not being able to stop or control worryin = Not at all Worrying too much about different things: 0 = Not at all Trouble relaxin = Not at all Being so restless that it is hard to sit still: 0 = Not at all Becoming easily annoyed or irritable: 0 = Not at all Feeling afraid as if something awful might happen: 0 = Not at all Total RADHA-7 score (0-4 normal; 5-9 mild; 10-14 moderate; 15-21 severe): 0 Source: Developed by Drs. Michael Anaya, Eladia Wallace, Orlando Coats and colleagues, with an educational rachel from [employer]. Review of Systems Const Denies chills, Denies headache(s) and Denies weight loss ENT Denies headache(s) Card Denies chest pain, Denies syncope, Denies irregular heart rhythm and Denies dyspnea Resp Denies chest congestion, Denies cough and Denies dyspnea GI Denies abdominal pain, Denies change in stool character, Denies nausea and Denies vomiting Musc Denies deformity and Denies joint swelling Neuro Denies syncope and Denies headache(s) Physical exam (Primary Care) Vital Signs: Last Vital Signs Pulse 70 11/04/24 08:53 BP 118/80 11/04/24 08:53 Pulse Ox 92 11/04/24 08:53 Oxygen Delivery Method Room Air 11/04/24 08:53 BMI result Body Mass Index 23.6 Tobacco/Smoking Status: Tobacco use Status Tobacco use date assessed 11/04/24 11/04/24 08:57 Patient Tobacco Use Status Former Tobacco user 11/04/24 08:54 Tobacco use type Cigarette 11/04/24 08:54 e-Cigarette/Vaping Use Never Used 11/04/24 08:54 PHQ-9: PHQ-9 Score PHQ-9: Total score 0 11/04/24 08:57 Depression Screening Interpretation: Negative Thrive Assessment: Date of Thrive Assessment Date Thrive assessed 11/04/24 11/04/24 08:57 Currently or been in a relationship where the following occur: No concerns reported Const General: cooperative, comfortable, no acute distress and alert Neck Neck: Yes no lymphadenopathy Thyroid: Thyroid normal Resp Effort & Inspection: normal respiratory effort Auscultation: clear to auscultation bilaterally Percussion: percussion normal Cardio Jugular venous distension: no JVD Palpation: normal PMI Rate: regular rate Rhythm: regular rhythm Heart sounds: S1 normal heart sound present and S2 normal heart sound present GI Inspection: Yes normal to inspection Palpation (GI): No hepatosplenomegaly present Skin General skin exam: no rashes or lesions noted Extrem General: Yes no clubbing, cyanosis or edema Coding Level of Care Code Est Pt Level 3 (68286) Diagnoses Hypertension I10 Additional Codes PHQ-9 - 15033 - PHQ-9 Billing: Yes ([id number]) Assessment & Plan Assessment & Plan (1) Hypertension: Code(s): I10 - Essential (primary) hypertension Category: Medical Plan: stable; same rx Orders: Referrals Urology Referral R97.20 - Elevated prostate specific antigen [PSA] Medications: New azithromycin take 500 mg today (day 1), then 250 mg for 4 days (days 2-5) PO 6 tabs 0RF
--- OUTSIDE RECORDS SUMMARY | 2024-11-04 08:54 | XMS_ITS ---
[facility] Address [address] [place] [address] Care Team Providers Care Wet Roaster Name Role Phone Kleber Billy MD Primary Care Provider Unavaila Osamn Velazco Unavailable [phone] Allergies Allergen (clinical drug ingredient) Drug/Non Drug [...] Ordered Date Performed Result Body Sit e 56002-CUFBIHL NAIL, 6 OR MORE 05/05/2024 N/A 90481-VHDH SKIN LESIONS, OVER 4 05/05/2024 N/A Encounters Encounter Location Date Provider Diagnosis [facility] [address] [place] [address] 05/05/2024 Osman Blanc Atherosclerosis of saxman artery of both lower extremities, with unspecified presence of clinical manifestation I70.203 ; Tinea unguium B35.1 ; Pain in right toe(s) M79.674 ; Pain in left toe(s) M79.675 and Xerosis of skin L85.3 Assessments Encounter Date Diagnosis (ICD Code) Assessment Notes Treatment Notes Treatment Clinical Notes Section Notes 05/05/2024 Atherosclerosis of saxman artery of both lower extremities, with unspecified presence of clinical manifestation (ICD-10 - I70.203) 05/05/2024 Tinea unguium (ICD-10 - B35.1) 05/05/2024 Pain in right toe(s) (ICD-10 - M79.674) 05/05/2024 Pain in left toe(s) (ICD-10 - M79.675) 05/05/2024 Xerosis of skin (ICD-10 - L85.3) Plan Of Treatment Pending Test Test Name Order Date [id number] NAIL, 6 OR MORE 05/05/2024 57177-BGNM SKIN LESIONS, OVER 4 05/05/20 24 Next Appt Details Follow Up: prn, Reason: Provider Name:Osman Blanc , 02/02/2025 09:00:00 AM, [address] [place] [address], [id number], Procedure Notes * Category Sub-Category Detail Notes [...] as necessary. Patient chooses, no pharmaceutical tx (35924) Keratoma Treatment Parring or Cutting o f Benign Hyperkeratotic Lesion(s) 62589 ( >4 Lesions) - The Benign hyperkeratotic lesions, as described above were pared, and/or cut utilizing a sterile #15 blade, tissue nippers, and/or dremel, Q8 Progress Notes * Lynette SANCHEZ JrDOB:[birth year] (74 yo M)Acc No.[id number]:05/05/2024 Progress Note Patient:?Lynette SANCHEZ Jr Provider:?Osman Blanc DPM :1950???Age:73 Y???Sex:Male Praveen e:05/05/2024 Address:[address] [place] [address] [id number] Pcp:Kleber Billy MD Subjective: * Chief Complaints: [...] hip surgery 07/2015 * Hospitalization/Major Diagno stic Procedure:[place] Headache Migraine for 5 days [...] 4 cups per day. ?Children: yes, 2. ?Exercise: no. ?Marital status: . 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 * Medications:?TakingRosuvasta tin Calcium 20 MG Tablet 1 tablet Orally Once a day Jessica Allergy 180 MG Tablet 1 tablet Orally Once a day Benazepril HCl 20 MG Tablet Orally Ammonium Lactate 12 % Cream 1 application Externally Twice a day Taking Rosuvastatin Calcium 20 MG Tablet 1 tablet Orally Once a day Taking Jessica Allergy 180 MG Tablet 1 tablet Orally Once a day Taking Benazepril HCl 20 MG Tablet Orally Taking Ammonium Lactate 12 % Cream 1 application Externally Twice a day Not-Taking/PRNSimvastatin 40 MG Tablet Orally Medication List reviewed and reconciled with the patientNot-Taking/PRN Simvastatin 40 MG Tablet Orally Medication List reviewed and reconciled with the patient * Allergies:?Shellfish-derived Products: swellingShrimp (Diagnostic): swellingSeasonaleyes[Allergies Verified] Objective: * Vitals:?Ht: 6ft 2in, Wt:186, BMI:23.88, Shoe size:12, BP:120/80mm Hg. * Examination: ???Vascular: ?DP PULSES (B):?1/4, B/L.?PT PULSES (B):? 0/4, B/L.?CAPILLARY FILL TIME:? delayed, all digits, B/L.?TROPHIC CONDITION-TEXTURE/ELASTICITY/TURGOR/HAIR GROWTH (B):? decreased, B/L.?TEMPERTURE GRADIENT (C):? decreased, cool to cool, proximal to distal, B/L.?PIGMENTATION:? mottled, B/L.?EDEMA (C):?absent, B/L.?CLAUDICATION (C):?STILL admits, 16-30 min, B/L, Left > Right.?Nails: [...] B/L.? Assessment: * Assessment: 1.?Tinea unguium - B35.1???2 .?Atherosclerosis of saxman artery of both lower extremities, with unspecified presence of clinical manifestation - I70.203 (Primary)???3.?Pain in right toe(s) - M79.674???4.?Pain in left toe(s) - M79.675 ??5.?Xerosis of skin - L85.3???Specify :Acute problem, Stable (1=3),Response to treatment - Improvement??? Plan: * Treatment: 2.?Tinea unguium?Procedure: 13311-WNRDSCS NAIL, 6 OR MORE * Procedures:?Debride Nail 6-10:?Nail debridement?Nail debridement performed extensively to reduce/remove overall nail length, girth, thickness, subungual debris, and necrotic tissue, by manual and electrical means through the use of a nail nipper and/or dremel, to more viable healthy nail plate or bed tissue 1-5. Silver nitrate used for any petechial bleeding as necessary. Patient chooses, no pharmaceutical tx (34548).?Keratoma Treatment:?Parring or Cutting of Benign Hyperkeratotic Lesion(s)?35061 ( >4 Lesions) - The Benign hyperkeratotic lesions, as described above were pared, and/or cut utilizing a sterile #15 blade, tissue nippers, and/or dremel, Q8.? * Procedure Codes:?68383 DEBRI DE NAIL, 6 OR MORE, Modifiers: XS 29410 TRIM SKIN LESIONS, OVER 4, Modifiers: XS [...] to cont the rx cream as directed.? ??Screening/Special Tests:?Fall Risk?Screening:?No falls in the past year ?FALLS: Screening for Future Fall Risk?Have you had any falls with injury in the past year??No * Follow Up:?prn * Images: * Sign off status: Completed Addendum: * ? true * Provider:?Osman Blanc DPM Date:?2023 Generated for Ally gomez/Leann/Maryjane on:?11/04/2024 08:53 AM EST History and Physical Notes * [...]
--- OUTSIDE RECORDS SUMMARY | 2024-11-04 08:54 | XMS_ITS | Continuity of Care Document ---
Author Name [facility] Organization [facility] Care Team Providers Care Storeroom Keeper Name Role Phone [facility] Unavailable Unavailable Problems Combined list of problems from Department of Defense and Veterans Affairs facilities. It does not include entries that were removed or entered in error. Problem Status Onset Date Problem Type Date of Resolution Comments Source Anaphylactic reaction Active Condition [facility] Bilateral hearing loss Active Condition [facility] Chronic alcoholism in remission Active Condition Nov 07, 2021 Entered By: TONI WIGGINS Comment: reviewedJul 2021 Entered By: TONI WIGGINS Comment: reviewedOct 2021 Entered By: TONI WIGGINS Comment: reviewedFeb 2022 Entered By: TONI WIGGINS Comment: reviewedJun 2022 Entered By: TONI WIGGINS Comment: reviewedOct 2022 Entered By: OTNI WIGGINS Comment: reiviewed [facility] Chronic post-traumatic stress disorder Active Condition Jun 17, 2019 Entered By: KELLY SANDERS Comment: ReviewedJan 2021 Entered By: TONI WIGGINS Comment: reviewedJul 2021 Entered By: TONI WIGGINS Comment: reviewedOct 2021 Entered By: TONI WIGGINS Comment: reviewedFeb 2022 Entered By: TONI WIGGINS Comment: reviewedJun 2022 Entered By: TONI WIGGINS Comment: reviewedOct 2022 Entered By: TONI WIGGINS Comment: reviewed [facility] Dilatation of aorta Active Condition Jan 18, 2024 Entered By: NADIA DHALIWAL Comment: ascending thoracic aorta is ectatic at 4.1cm on imaging 12/2023 [facility] Emphysema of lung Active Condition Oc t 2021 Entered By: NADIA DHALIWAL Comment: On chest CT [facility] Exposure to potentially hazardous substance ([facility] [id number]) Active Condition March 27 Entered By: ALIS JACOBO Comment: Entered automatically through JULIET Problem List documentation program [facility] Hyperlipidemia Active Condition [facility] [place] Hypertension Active Condition [facility] Prostate Specific Antigen Above Reference Range (SCT [id number]) Active Condition Sep 08, 2024 Entered By: YANETH JOE Comment: 8.8, referred back to Dr. Matthias Gray, +family h/o prostate ca- father, +AO exposure [facility] Diagnosis: ICD-10-CM F43.10 Post-traumatic stress disorder, unspecified Active Diagnosis [facility] Diagnosis: ICD-10-CM F43.12 Post-traumatic stress disorder, chronic Active Diagnosis [facility] Diagnosis: ICD-10-CM R97.20 Elevated prostate specific antigen [PSA] Active Diagnosis [facility] Diagnosis: ICD-10-CM K03.6 Deposits [accretions] on teeth Active Diagnosis [facility] Diagnosis: ICD-10-CM Z46.1 Encounter for fitting and adjustment of hearing aid Active Diagnosis [facility] Diagnosis: ICD-10-CM F10.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, in remission Active Diagnosis [facility] Diagnosis: ICD-10-CM 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, unspecified site Active Diagnosis [facility] Diagnosis: ICD-10-CM K08.9 Disorder of teeth and supporting structures, unspecified Active Diagnosis [facility] Diagnosis: ICD-10-CM Z01.30 Encounter for exam of blood pressure w/o abnormal findings Active Diagnosis [facility] [place] [facility] Medications Combined list of outpatient medications from Department of Defense and Veterans Affairs facilities.Medications provided include 1) outpatient medications from the last 15 months, and 2) patient-reported medications. Medication Details Route Status Patient Instructions Prescription Expires Prescription Number Last Dispense Date Ordering Provider Order Date Order Qty Source AMLODIPINE BESYLATE 5MG TAB TAKE ONE TABLET BY MOUTH ONCE DAILY FOR BLOOD PRESSURE /HEART, DO NOT TAKE WITH GRAPEFRU IT JUICE ORAL ACTIVE 12/17/2024 [id number] MI DODD JAWED 2023 90 [facility] AMLODIPINE BESYLATE 5MG TAB TAKE ONE TABLET BY MOUTH ONCE DAILY FOR BLOOD PRESSURE /HEART, DO NOT TAKE WITH GRAPEFRU IT JUICE ORAL DISCONT INUED 12/25/2023 [id number] MI DODD AMFERNANDO JAWED 2022 90 [facility] BENAZEPRIL HCL 20MG TAB TAKE ONE TABLET BY MOUTH EVERY MORNING ORAL ACTIVE PETROFF,S UANNE 2017 [facility] EPINEPHRINE (EQV-EPI PEN) 0.3ML/0.3ML INJ,SOLN INJECT INTRAMUS CULARLY INTRAM USCULA R ACTIVE PETROFF,S UANNE 2017 [facility] EPINEPHRINE (EQV-EPI-PE N) 0.3MG/0.3ML INJECTOR INJECT DIRECTED INTRAMUS CULARLY ONCE DAILY NEEDED FOR LIFE THREATEN ING ALLERGIC REACTION INTRAM USCULA R ACTIVE 03/10/2025 [id number] Clay JOE 2023 2 [facility] FEXOFENADIN E HCL 180MG TAB TAKE ONE TABLET BY MOUTH ONCE DAILY ORAL ACTIVE LI ZACARIAS 2020 [facility] PRAZOSIN HCL 2MG CAP TAKE ONE CAPSULE BY MOUTH AT BEDTIME FOR NIGHTMAR ES ORAL SUSPEND ED 09/09/2025 [id number] TONI WIGGINS 2024 90 [facility] PRAZOSIN HCL 2MG CAP TAKE ONE CAPSULE BY MOUTH AT BEDTIME FOR NIGHTMAR ES ORAL DISCONT INUED 03/27/2025 [id number] TONI WIGGINS 2023 90 [facility] PRAZOSIN HCL 2MG CAP TAKE ONE CAPSULE BY MOUTH AT BEDTIME ORAL DISCONT INUED 10/24/2024 [id number] TONI WIGGINS 2022 90 [facility] ROSUVASTATI N CA 20MG TAB TAKE ONE TABLET BY MOUTH ONCE DAILY FOR CHOLESTE ROL ORAL ACTIVE 03/10/2025 [id number] Clay JOE TITO 2023 90 [facility] ROSUVASTATI N CA 20MG TAB TAKE ONE TABLET BY MOUTH ONCE DAILY FOR CHOLESTE ROL ORAL DISCONT INUED 03/18/2024 [id number] PIERCEFRENANDOMI AMMED JAWED 2022 90 [facility] SODIUM FLUORIDE 1.1% TOOTHPASTE BRUSH SMALL AMOUNT TO TEETH TWICE DAILY FOR TOOTH DECAY PREVENTI ON DENTAL ACTIVE 10/01/2025 [id number] CARLOS SOUTH 2023 204 [facility] SODIUM FLUORIDE 1.1% TOOTHPASTE BRUSH SMALL AMOUNT TO TEETH TWICE DAILY FOR TOOTH DECAY PREVENTI ON DENTAL 08/09/2024 [id number] [place] 2022 204 [place] [facility] Allergies, Adverse Reactions, Alerts Combined list of allergies from Department of Defense and Veterans Affairs facilities. It does not include entries that were removed or entered in error. Substance Category Reaction Severity Reaction type Status Date Reported Comments Source BEE STINGS Propensity to adverse reaction (finding) Anaphylaxis active 8 [facility] ENVIRONMENTA L ALLERGENS Propensity to adverse reaction (finding) Nasal congestion active 8 [facility] SHELLFISH Propensity to adverse reactions to food (finding) active 8 [place] [facility] Immunizations Combined list of available immunizations from the Department of Defense and Veterans Affairs facilities. Immunization Series Date Given Administered By Site Reaction Lot Number CVX Code Drug Military Analyst Status Comments Source INFLUENZA, UNSPECIFIED FORMULATION 2023 88 complet ed [facility] INFLUENZA, UNSPECIFIED FORMULATION 2022 88 complet ed [facility] COVID-19 (MODERNA), MRNA, LNP-S, PF, 50 MCG/0.5 ML (AGES 12+ YEARS) 1 2022 312 complet ed [facility] INFLUENZA, INJECTABLE, QUADRIVALENT, PRESERVATIVE FREE 2021 150 complet ed [facility] PNEUMOCOCCAL CONJUGATE PCV20, POLYSACCHARID E [id number] CONJUGATE, ADJUVANT, PF 2021 216 complet ed [facility] COVID-19 (MODERNA), MRNA, LNP-S, PF, 100 MCG/0.5ML DOSE OR 50 MCG/0.25ML DOSE 3 2021 207 complet ed MOD; [id number]; 2 [facility] COVID-19 (MODERNA), MRNA, LNP-S, PF, 100 MCG/0.5 ML DOSE 3 2020 207 complet ed [id number] 09/09/21 @ 1915 [facility] [place] INFLUENZA, UNSPECIFIED FORMULATION 2020 88 complet ed [facility] COVID-19 (MODERNA), MRNA, LNP-S, PF, 100 MCG/0.5 ML DOSE 2 2020 207 complet ed MOD; [id number]; 1 [place] [facility] COVID-19 (MODERNA), MRNA, LNP-S, PF, 100 MCG/0.5 ML DOSE 1 2020 207 complet ed MOD; [id number]; 1 [place] [facility] INFLUENZA, INJECTABLE, QUADRIVALENT, PRESERVATIVE FREE 2019 150 complet ed [facility] INFLUENZA, TRIVALENT, ADJUVANTED 2018 168 complet ed Site: Left Deltoid [facility] TDAP 2018 115 complet ed Site: Left Deltoid [facility] INFLUENZA, SEASONAL, INJECTABLE 2017 141 complet ed [facility] INFLUENZA, SEASONAL, INJECTABLE 2017 141 complet ed [employer] [place] [facility] ZOSTER RECOMBINANT 2 2017 187 complet ed patient will bering documents [facility] ZOSTER RECOMBINANT 1 2017 187 complet ed patient is requestin g [facility] INFLUENZA, SEASONAL, INJECTABLE 2016 141 complet ed IIV4-HD 65+ Lot: [id number] [facility] INFLUENZA, SEASONAL, INJECTABLE 2016 141 complet ed PCP office [facility] ZOSTER LIVE 2010 121 complet ed Lot No. [id number] 0.5 mL Left Deltoid [facility] Results Combined list of recent chemistry, hematology and other laboratory results from Department of Defense and Veterans Affairs, ranging from 15 months to all on record, depending upon the facility. Order Name Results Value Reference Range Date Interpretation Specimen Comments Source PSA PROSTATE SPECIFIC AG [MASS/VOLUM E] IN SERUM OR PLASMA 8.81 ng/mL 0.00 - 4.00 08/31 H Specimen Type: SERUM No comment entered. Ordering Provider: KARTHIKEYAN JOE Report Released Date/Time: March 09, 2024 09:50 AM Reporting Lab: [place] [facility] [place] [facility] [address] [address] Performing Lab: [place] [facility] [place] [facility] [address] [address] [place] [facility] BASIC METABOLIC PANEL (non-fast ing) UREA NITROGEN [MASS/VOLUM E] IN SERUM OR PLASMA 16 mg/dL 7 - 25 08/31 Specimen Type: SERUM No comment entered. Ordering Provider: KARTHIKEYAN JOE Report Released Date/Time: March 09, 2024 09:50 AM Reporting Lab: [facility]PITALTRN [facility] [address] [address] Performing Lab: [facility]ITALRDECATUR MORGAN HOSPITALN [facility]USE[facility] [address] [address] [facility] BASIC METABOLIC PANEL (non-fast ing) GLUCOSE [MASS/VOLUM E] IN SERUM OR PLASMA 106 mg/dL 65 - 100 08/31 H Specimen Type: SERUM No comment entered. Ordering Provider: KARTHIKEYAN JOE Report Released Date/Time: March 09, 2024 09:50 AM Reporting Lab: [facility] [address] [address] Performing Lab: [facility] [address] [address] [facility] BASIC METABOLIC PANEL (non-fast ing) SODIUM [MOLES/VOLU ME] IN SERUM OR PLASMA 139 mmol/L 135 - 145 08/31 Specimen Type: SERUM No comment entered. Ordering Provider: KARTHIKEYAN JOE Report Released Date/Time: March 09, 2024 09:50 AM Reporting Lab: [facility] [address] [address] Performing Lab: [facility] [address] [address] [facility] BASIC METABOLIC PANEL (non-fast ing) POTASSIUM [MOLES/VOLU ME] IN SERUM OR PLASMA 3.9 mmol/L 3.5 - 5.0 08/31 Specimen Type: SERUM No comment entered. Ordering Provider: KARTHIKEYAN JOE Report Released Date/Time: March 09, 2024 09:50 AM Reporting Lab: [facility]ITALRDECAT[facility] M[facility]OSPITALN [facility]ENTERUSE[facility] [address] [address] Performing Lab: [facility]ITALRDECAT[facility]OSPITALN [facility] [address] [address] [facility] BASIC METABOLIC PANEL (non-fast ing) CHLORIDE [MOLES/VOLU ME] IN SERUM OR PLASMA 105 mmol/L 100 - 110 08/31 Specimen Type: SERUM No comment entered. Ordering Provider: KARTHKIEYAN JOE Report Released Date/Time: March 09, 2024 09:50 AM Reporting Lab: [address] [address] Performing Lab: [address] [address] [facility] BASIC METABOLIC PANEL (non-fast ing) CARBON DIOXIDE, TOTAL [MOLES/VOLU ME] IN SERUM OR PLASMA 25 meq/L 20 - 30 08/31 Specimen Type: SERUM No comment entered. Ordering Provider: KARTHIKEYAN JOE Report Released Date/Time: March 09, 2024 09:50 AM Reporting Lab: [address] [address] Performing Lab: [address] [address] [facility] BASIC METABOLIC PANEL (non-fast ing) CREATININE [MASS/VOLUM E] IN SERUM OR PLASMA 1.17 mg/dL 0.50 - 1.40 08/31 Specimen Type: SERUM No comment entered. Ordering Provider: KARTHIKEYAN JOE Report Released Date/Time: March 09, 2024 09:50 AM Reporting Lab: [address] [address] Performing Lab: [address] [address] [facility] BASIC METABOLIC PANEL (non-fast ing) GLOMERULAR FILTRATION RATE/1.73 SQ M.PREDICTED [VOLUME RATE/AREA] IN SERUM, PLASMA OR BLOOD BY CREATININE- BASED FORMULA (CKD-EPI 2020) 65 mL/min 60 08/31 Specimen Type: SERUM No comment entered. Ordering Provider: KARTHIKEYAN JOE Report Released Date/Time: March 09, 2024 09:50 AM Reporting Lab: [address] [address] Performing Lab: [facility] [place] [facility] [address] [address] [place] [facility] [facility] LIPID PANEL, NON FASTING CHOLESTEROL [MASS/VOLUM E] IN SERUM OR PLASMA 190 mg/dL 03/03 Specimen Type: SERUM No comment entered. Ordering Provider: KARTHIKEYAN JOE Report Released Date/Time: February 28, 2024 10:29 AM Reporting Lab: [facility] [place] [facility] [address] [address] Performing Lab: [facility] [place] [facility] [address] [address] [facility]RL W[facility]N [place] [facility] LIPID PANEL, NON FASTING TRIGLYCERID E [MASS/VOLUM E] IN SERUM OR PLASMA 68 mg/dL 0 - 150 03/03 Specimen Type: SERUM No comment entered. Ordering Provider: KARTHIKEYAN JOE Report Released Date/Time: February 28, 2024 10:29 AM Reporting Lab: [place] [facility] [facility] [address] [address] Performing Lab: [place] [facility] [facility] [address] [address] [facility] W[facility] [place] [facility] LIPID PANEL, NON FASTING CHOLESTEROL IN LDL [MASS/VOLUM E] IN SERUM OR PLASMA BY CALCULATION 102 mg/dL 0 - 129 03/03 Specimen Type: SERUM No comment entered. Ordering Provider: KARTHIKEYAN JOE Report Released Date/Time: February 28, 2024 10:29 AM Reporting Lab: [facility] [place] [facility] [address] [address] Performing Lab: [place] [facility] [place] [address] [address] [facility]ITALRL W[facility]N [place] [facility] LIPID PANEL, NON FASTING CHOLESTEROL .TOTAL/CHOL ESTEROL IN HDL [MASS RATIO] IN SERUM OR PLASMA 2.6 03/03 Specimen Type: SERUM No comment entered. Ordering Provider: KARTHIKEYAN JOE Report Released Date/Time: February 28, 2024 10:29 AM Reporting Lab: [place] [facility] [place] [facility] [address] [address] Performing Lab: [facility]ITALRNOR[facility] HOSPITALTRN [facility] CENTERUSETS [facility] [address] [address] [facility]ITALRNOR[facility] HOSPITALTRN [facility] CENTERUSE [facility] LIPID PANEL, NON FASTING CHOLESTEROL IN HDL [MASS/VOLUM E] IN SERUM OR PLASMA 74 mg/dL 40 - 60 03/03 H Specimen Type: SERUM No comment entered. Ordering Provider: KARTHIKEYAN JOE Report Released Date/Time: February 28, 2024 10:29 AM Reporting Lab: [facility]ITALRNOR[facility] HOSPITALTRN [facility]ENTERUSEM[facility] [address] [address] Performing Lab: [facility]OSPITALRDECATUR MORGAN HOSPITALN [facility]ENTERUSEMAD[facility] [address] [address] [facility]ITALN [facility]ENTERUSE [facility] BASIC METABOLIC PANEL (non-fast ing) UREA NITROGEN [MASS/VOLUM E] IN SERUM OR PLASMA 20 mg/dL 7 - 25 03/03 Specimen Type: SERUM No comment entered. Ordering Provider: KARTHIKEYAN JOE Report Released Date/Time: February 28, 2024 10:29 AM Reporting Lab: [facility]ITALRNOR[facility] SPECIALTY HOSPITALTRN [facility]SUSEMADISON [facility] [address] [address] Performing Lab: [facility]ITALRNOR[facility] HOSPITALTRN [facility]ENTERUSEMAD[facility] [address] [address] [facility]N [facility] BASIC METABOLIC PANEL (non-fast ing) GLUCOSE [MASS/VOLUM E] IN SERUM OR PLASMA 105 mg/dL 65 - 100 03/03 H Specimen Type: SERUM No comment entered. Ordering Provider: KARTHIKEYAN JOE Report Released Date/Time: February 28, 2024 10:29 AM Reporting Lab: [facility]ITALRL [facility]N [place] [facility] [address] [address] Performing Lab: [facility]ITALRNOR[facility] HOSPITALTRN [facility]ENTERUSEMAD[facility] [address] [address] [facility]ITALRDECATUR MORGAN HOSPITALN [facility]ENTERUSE [facility] BASIC METABOLIC PANEL (non-fast ing) SODIUM [MOLES/VOLU ME] IN SERUM OR PLASMA 143 mmol/L 135 - 145 03/03 Specimen Type: SERUM No comment entered. Ordering Provider: KARTHIKEYAN JOE Report Released Date/Time: February 28, 2024 10:29 AM Reporting Lab: [facility]ITALRL [facility] [place] [facility] [address] [address] Performing Lab: [facility]ITALRL WSTRN [facility] CENTERUSETS [facility] [address] [address] [facility]RL WSTRN MASSUSE [facility] BASIC METABOLIC PANEL (non-fast ing) POTASSIUM [MOLES/VOLU ME] IN SERUM OR PLASMA 4.6 mmol/L 3.5 - 5.0 03/03 Specimen Type: SERUM No comment entered. Ordering Provider: KARTHIKEYAN JOE Report Released Date/Time: February 28, 2024 10:29 AM Reporting Lab: [facility]ITALRL TRN [facility] CENTERUSETS [facility] [address] [address] Performing Lab: [facility]ITALRL WSTRN [facility] CENTERUSEMADISON [facility] [address] [address] [facility]PITALN [facility] CENTERUSE [facility] BASIC METABOLIC PANEL (non-fast ing) CHLORIDE [MOLES/VOLU ME] IN SERUM OR PLASMA 107 mmol/L 100 - 110 03/03 Specimen Type: SERUM No comment entered. Ordering Provider: KARTHIKEYAN JOE Report Released Date/Time: February 28, 2024 10:29 AM Reporting Lab: [facility]ITALRL [facility]N [place] [facility] [address] [address] Performing Lab: [place] [facility] W[facility]N [facility] CENTERUSETS [facility] [address] [address] [facility]ITALRL TRN [facility] CENTERUSE [facility] BASIC METABOLIC PANEL (non-fast ing) CARBON DIOXIDE, TOTAL [MOLES/VOLU ME] IN SERUM OR PLASMA 26 meq/L 20 - 30 03/03 Specimen Type: SERUM No comment entered. Ordering Provider: KARTHIKEYAN JOE Report Released Date/Time: February 28, 2024 10:29 AM Reporting Lab: [facility]ITALRL [facility]N [place] [facility] [address] [address] Performing Lab: [facility]ITALRL WSTRN [facility] CENTERUSETS [address] [address] [facility]ITALRL WSTRN [facility]ENTERUSE [facility] BASIC METABOLIC PANEL (non-fast ing) CREATININE [MASS/VOLUM E] IN SERUM OR PLASMA 1.16 mg/dL 0.50 - 1.40 03/03 Specimen Type: SERUM No comment entered. Ordering Provider: KARTHIKEYAN JOE Report Released Date/Time: February 28, 2024 10:29 AM Reporting Lab: [place] [facility] [place] [facility] [address] [address] Performing Lab: [place] [facility] [facility] CENTERUSETS [address] [address] [facility]RL W[facility]N [facility] BASIC METABOLIC PANEL (non-fast ing) GLOMERULAR FILTRATION RATE/1.73 SQ M.PREDICTED [VOLUME RATE/AREA] IN SERUM, PLASMA OR BLOOD BY CREATININE- BASED FORMULA (CKD-EPI 2020) 65 mL/min 60 03/03 Specimen Type: SERUM No comment entered. Ordering Provider: KARTHIKEYAN JOE Report Released Date/Time: February 28, 2024 10:29 AM Reporting Lab: [facility]ITALRL TRN [facility] CENTERUSE[address] [address] Performing Lab: [facility]ITALRL WSTRN [facility] CENTERUSETS [address] [address] [facility]OSPITALRL [facility]N [facility]USE [facility] LIPID PANEL FASTING CHOLESTEROL [MASS/VOLUM E] IN SERUM OR PLASMA 215 mg/dL 09/23 H Specimen Type: SERUM No comment entered. Ordering Provider: KENAN DODD Report Released Date/Time: Sep 09, 2023 03:28 PM Reporting Lab: [facility]ITALRL TRN [facility] CENTERUSETS [address] [address] Performing Lab: [facility]ITALRL WSTRN [place] [facility] [address] [address] [facility] LIPID PANEL FASTING TRIGLYCERID E [MASS/VOLUM E] IN SERUM OR PLASMA 66 mg/dL 0 - 150 09/23 Specimen Type: SERUM No comment entered. Ordering Provider: KENAN DODD Report Released Date/Time: Sep 09, 2023 03:28 PM Reporting Lab: [facility] [place] [address] Performing Lab: [facility] [place] [place] [facility] [address] [address] [facility] [place] [facility] LIPID PANEL FASTING CHOLESTEROL IN LDL [MASS/VOLUM E] IN SERUM OR PLASMA BY CALCULATION 125.8 mg/dL 0 - 129 09/23 Specimen Type: SERUM No comment entered. Ordering Provider: KENAN DODD Report Released Date/Time: Sep 09, 2023 03:28 PM Reporting Lab: [facility] [place] [place] [facility] [address] [address] Performing Lab: [facility] [place] [facility] [address] [address] [facility] [place] [facility] LIPID PANEL FASTING CHOLESTEROL .TOTAL/CHOL ESTEROL IN HDL [MASS RATIO] IN SERUM OR PLASMA 2.8 09/23 Specimen Type: SERUM No comment entered. Ordering Provider: KENAN DODD Report Released Date/Time: Sep 09, 2023 03:28 PM Reporting Lab: [facility] [place] [place] [facility] [address] [address] Performing Lab: [facility] [place] [facility] [address] [facility] [address] [facility] [place] [facility] LIPID PANEL FASTING CHOLESTEROL IN HDL [MASS/VOLUM E] IN SERUM OR PLASMA 76 mg/dL 40 - 60 09/23 H Specimen Type: SERUM No comment entered. Ordering Provider: KENAN DODD Report Released Date/Time: Sep 09, 2023 03:28 PM Reporting Lab: [facility] [place] [facility] [address] [facility] [address] Performing Lab: [facility] [place] [facility] [address] [facility] [facility] [address] [facility] [place] [facility] BASIC METABOLIC PANEL (fasting) UREA NITROGEN [MASS/VOLUM E] IN SERUM OR PLASMA 18 mg/dL 7 - 25 09/23 Specimen Type: SERUM No comment entered. Ordering Provider: KENAN DODD Report Released Date/Time: Sep 09, 2023 03:28 PM Reporting Lab: [facility] [place] [facility] [address] [facility] [address] Performing Lab: [place] [facility] [facility] [address] [facility] [facility] [address] [facility] [place] [facility] BASIC METABOLIC PANEL (fasting) GLUCOSE [MASS/VOLUM E] IN SERUM OR PLASMA 97 mg/dL 65 - 100 09/23 Specimen Type: SERUM No comment entered. Ordering Provider: KENAN DODD Report Released Date/Time: Sep 09, 2023 03:28 PM Reporting Lab: [place] [facility] [facility] [address] [facility] [address] Performing Lab: [place] [facility] [place] [facility] [address] [facility] [address] [facility] BASIC METABOLIC PANEL (fasting) SODIUM [MOLES/VOLU ME] IN SERUM OR PLASMA 146 mmol/L 135 - 145 09/23 H Specimen Type: SERUM No comment entered. Ordering Provider: KENAN DODD Report Released Date/Time: Sep 09, 2023 03:28 PM Reporting Lab: [place] [facility] [facility] [address] [address] Performing Lab: [place] [facility] [facility] [address] [facility] [address] [facility] BASIC METABOLIC PANEL (fasting) POTASSIUM [MOLES/VOLU ME] IN SERUM OR PLASMA 4.9 mmol/L 3.5 - 5.0 09/23 Specimen Type: SERUM No comment entered. Ordering Provider: KENAN DODD Report Released Date/Time: Sep 09, 2023 03:28 PM Reporting Lab: [place] [facility] [facility] [address] [facility] [address] Performing Lab: [place] [facility] [place] [facility] [address] [facility] [facility] [address] [facility] [place] [facility] BASIC METABOLIC PANEL (fasting) CHLORIDE [MOLES/VOLU ME] IN SERUM OR PLASMA 108 mmol/L 100 - 110 09/23 Specimen Type: SERUM No comment entered. Ordering Provider: KENAN DODD Report Released Date/Time: Sep 09, 2023 03:28 PM Reporting Lab: [facility] [place] [facility] [address] [facility] [address] Performing Lab: [facility] [facility] [address] [facility] [facility] [address] [facility] [place] [facility] BASIC METABOLIC PANEL (fasting) CARBON DIOXIDE, TOTAL [MOLES/VOLU ME] IN SERUM OR PLASMA 28 meq/L 20 - 30 09/23 Specimen Type: SERUM No comment entered. Ordering Provider: KENAN DODD Report Released Date/Time: Sep 09, 2023 03:28 PM Reporting Lab: [facility] [place] [facility] [address] [facility] [address] Performing Lab: [facility] [place] [facility] [address] [facility] [address] [facility] [place] [facility] BASIC METABOLIC PANEL (fasting) CREATININE [MASS/VOLUM E] IN SERUM OR PLASMA 1.08 mg/dL 0.50 - 1.40 09/23 Specimen Type: SERUM No comment entered. Ordering Provider: KENAN DODD Report Released Date/Time: Sep 09, 2023 03:28 PM Reporting Lab: [facility] [place] [facility] [address] [facility] [address] Performing Lab: [facility] [place] [facility] [address] [facility] [address] [facility] [place] [facility] BASIC METABOLIC PANEL (fasting) GLOMERULAR FILTRATION RATE/1.73 SQ M.PREDICTED [VOLUME RATE/AREA] IN SERUM, PLASMA OR BLOOD BY CREATININE- BASED FORMULA (CKD-EPI 2020) 72 mL/min 60 09/23 Specimen Type: SERUM No comment entered. Ordering Provider: KENAN DODD Report Released Date/Time: Sep 09, 2023 03:28 PM Reporting Lab: [facility] [place] [facility] [address] [facility] [address] Performing Lab: [facility] [place] [facility] [address] [facility] [facility] [address] [facility] [place] [facility] CBC AND DIFF (AUTO) LEUKOCYTES [#/VOLUME] IN BLOOD BY AUTOMATED COUNT 5.74 10*3/u L 4.50 - 11.00 09/23 Specimen Type: BLOOD No comment entered. Ordering Provider: KENAN DODD Report Released Date/Time: Sep 09, 2023 03:28 PM Reporting Lab: [facility] [place] [facility] [address] [facility] [facility] [address] Performing Lab: [facility] [place] [facility] [address] [facility] [facility] [address] [facility] [place] [facility] CBC AND DIFF (AUTO) ERYTHROCYTE S [#/VOLUME] IN BLOOD BY AUTOMATED COUNT 5.55 10*6/u L 4.23 - 5.66 09/23 Specimen Type: BLOOD No comment entered. Ordering Provider: KENAN DODD Report Released Date/Time: Sep 09, 2023 03:28 PM Reporting Lab: [facility] [place] [facility] [address] [facility] [address] Performing Lab: [facility] [place] [facility] [address] [facility] [facility] [address] [facility] [place] [facility] CBC AND DIFF (AUTO) HEMOGLOBIN [MASS/VOLUM E] IN BLOOD 14.1 g/dL 12.8 - 17 09/23 Specimen Type: BLOOD No comment entered. Ordering Provider: KENAN DODD Report Released Date/Time: Sep 09, 2023 03:28 PM Reporting Lab: [facility] [place] [facility] [address] [facility] [address] Performing Lab: [facility] [place] [facility] [address] [place] [phone] [facility] [place] [facility] CBC AND DIFF (AUTO) HEMATOCRIT [VOLUME FRACTION] OF BLOOD BY AUTOMATED COUNT 43.5 39.2 - 50.4 09/23 Specimen Type: BLOOD No comment entered. Ordering Provider: KENAN DODD Report Released Date/Time: Sep 09, 2023 03:28 PM Reporting Lab: [facility] [place] [facility] [address] [place] [address] Performing Lab: [facility] [place] [facility] [address] [facility] [address] [facility] [place] [facility] CBC AND DIFF (AUTO) MCV [ENTITIC VOLUME] BY AUTOMATED COUNT 78.4 fL 82 - 99 09/23 L Specimen Type: BLOOD No comment entered. Ordering Provider: KENAN DODD Report Released Date/Time: Sep 09, 2023 03:28 PM Reporting Lab: [facility] [place] [facility] [address] [facility] [address] Performing Lab: [place] [facility] [place] [facility] [address] [facility] [address] [facility] [facility] CBC AND DIFF (AUTO) MCHC [MASS/VOLUM E] BY AUTOMATED COUNT 32.4 g/dL 30.8 - 35.1 09/23 Specimen Type: BLOOD No comment entered. Ordering Provider: KENAN DODD Report Released Date/Time: Sep 09, 2023 03:28 PM Reporting Lab: [facility] [facility] [address] [facility] [address] Performing Lab: [facility] [place] [facility] [address] [facility] [address] [facility] [facility] CBC AND DIFF (AUTO) PLATELETS [#/VOLUME] IN BLOOD BY AUTOMATED COUNT 231 10*3/u L 140 - 360 09/23 Specimen Type: BLOOD No comment entered. Ordering Provider: KENAN DODD Report Released Date/Time: Sep 09, 2023 03:28 PM Reporting Lab: [facility] [place] [facility] [address] [facility] [address] Performing Lab: [place] [facility] [place] [facility] [address] [facility] [address] [facility] [place] [facility] CBC AND DIFF (AUTO) ERYTHROCYTE DISTRIBUTIO N WIDTH [RATIO] BY AUTOMATED COUNT 15.2 12.0 - 16.0 09/23 Specimen Type: BLOOD No comment entered. Ordering Provider: KENAN DODD Report Released Date/Time: Sep 09, 2023 03:28 PM Reporting Lab: [facility] [place] [facility] [address] [facility] [address] Performing Lab: [facility] [place] [facility] [address] [facility] [address] [facility] [place] [facility] CBC AND DIFF (AUTO) MONOCYTES [#/VOLUME] IN BLOOD BY AUTOMATED COUNT 0.49 10*3/u L 0.30 - 1.10 09/23 Specimen Type: BLOOD No comment entered. Ordering Provider: KENAN DODD Report Released Date/Time: Sep 09, 2023 03:28 PM Reporting Lab: [facility] [place] [facility] [address] [facility] [address] Performing Lab: [facility] [place] [facility] [address] [facility] [address] [facility] [place] [facility] CBC AND DIFF (AUTO) MCH [ENTITIC MASS] BY AUTOMATED COUNT 25.4 pg 26.2 - 32.6 09/23 L Specimen Type: BLOOD No comment entered. Ordering Provider: KENAN DODD Report Released Date/Time: Sep 09, 2023 03:28 PM Reporting Lab: [facility] [place] [facility] [address] [facility] [address] Performing Lab: [facility] [place] [facility] [address] [facility] [address] [facility] [place] [facility] CBC AND DIFF (AUTO) NEUTROPHILS /100 LEUKOCYTES IN BLOOD BY AUTOMATED COUNT 54.3 43.7 - 75.8 09/23 Specimen Type: BLOOD No comment entered. Ordering Provider: KENAN DODD [employer] Report Released Date/Time: Sep 09, 2023 03:28 PM Reporting Lab: [facility] [place] [facility] [address] [facility] [address] Performing Lab: [facility] [place] [facility] [address] [facility] [address] [facility] [place] [facility] CBC AND DIFF (AUTO) LYMPHOCYTES /100 LEUKOCYTES IN BLOOD BY AUTOMATED COUNT 31.5 14.0 - 42.3 09/23 Specimen Type: BLOOD No comment entered. Ordering Provider: KENAN DODD Report Released Date/Time: Sep 09, 2023 03:28 PM Reporting Lab: [facility] [place] [facility] [address] [facility] [address] Performing Lab: [facility] [place] [facility] [address] [facility] [address] [facility] [place] [facility] CBC AND DIFF (AUTO) MONOCYTES/1 00 LEUKOCYTES IN BLOOD BY AUTOMATED COUNT 8.5 5.1 - 13.7 09/23 Specimen Type: BLOOD No comment entered. Ordering Provider: KENAN DODD Report Released Date/Time: Sep 09, 2023 03:28 PM Reporting Lab: [facility] [place] [facility] [address] [facility] [address] Performing Lab: [facility] [place] [facility] [address] [facility] [address] [facility] [place] [facility] CBC AND DIFF (AUTO) EOSINOPHILS /100 LEUKOCYTES IN BLOOD BY AUTOMATED COUNT 4.4 0.4 - 6.8 09/23 Specimen Type: BLOOD No comment entered. Ordering Provider: KENAN DODD Report Released Date/Time: Sep 09, 2023 03:28 PM Reporting Lab: [facility] [place] [facility] [address] [facility] [facility] [address] Performing Lab: [facility] [place] [facility] [address] [facility] [address] [facility] [place] [facility] CBC AND DIFF (AUTO) BASOPHILS/1 00 LEUKOCYTES IN BLOOD BY AUTOMATED COUNT 1.0 0.1 - 2.0 09/23 Specimen Type: BLOOD No comment entered. Ordering Provider: KENAN DODD Report Released Date/Time: Sep 09, 2023 03:28 PM Reporting Lab: [facility] [place] [facility] [address] [facility] [address] Performing Lab: [facility] [place] [facility] [address] [facility] [address] [facility] [place] [facility] CBC AND DIFF (AUTO) NEUTROPHILS [#/VOLUME] IN BLOOD BY AUTOMATED COUNT 3.11 10*3/u L 2.20 - 7.60 09/23 Specimen Type: BLOOD No comment entered. Ordering Provider: KENAN DODD Report Released Date/Time: Sep 09, 2023 03:28 PM Reporting Lab: [facility] [place] [facility] [address] [facility] [address] Performing Lab: [facility] [place] [facility] [address] [facility] [address] [facility] [place] [facility] CBC AND DIFF (AUTO) LYMPHOCYTES [#/VOLUME] IN BLOOD BY AUTOMATED COUNT 1.81 10*3/u L 1.00 - 3.20 09/23 Specimen Type: BLOOD No comment entered. Ordering Provider: KENAN DODD Report Released Date/Time: Sep 09, 2023 03:28 PM Reporting Lab: [facility] [place] [facility] [address] [facility] [address] Performing Lab: [facility] [place] [facility] [address] [facility] [address] [facility] [place] [facility] CBC AND DIFF (AUTO) EOSINOPHILS [#/VOLUME] IN BLOOD BY AUTOMATED COUNT 0.25 10*3/u L 0.03 - 0.44 09/23 Specimen Type: BLOOD No comment entered. Ordering Provider: KENAN DODD Report Released Date/Time: Sep 09, 2023 03:28 PM Reporting Lab: [facility] [place] [facility] [address] [facility] [address] Performing Lab: [facility] [place] [facility] [address] [facility] [address] [facility] [place] [facility] CBC AND DIFF (AUTO) BASOPHILS [#/VOLUME] IN BLOOD BY AUTOMATED COUNT 0.06 10*3/u L 0.01 - 0.13 09/23 Specimen Type: BLOOD No comment entered. Ordering Provider: KENAN DODD Report Released Date/Time: Sep 09, 2023 03:28 PM Reporting Lab: [facility] [place] [facility] [address] [facility] [address] Performing Lab: [facility] [place] [facility] [address] [facility] [address] [facility] [place] [facility] CBC AND DIFF (AUTO) IMMATURE GRANULOCYTE S/100 LEUKOCYTES IN BLOOD BY AUTOMATED COUNT 0.3 0.0 - 0.7 09/23 Specimen Type: BLOOD No comment entered. Ordering Provider: KENAN DODD Report Released Date/Time: Sep 09, 2023 03:28 PM Reporting Lab: [facility] [place] [facility] [address] [facility] [address] Performing Lab: [place] [facility] [place] [facility] [address] [facility] [facility] [address] [facility] [facility] CBC AND DIFF (AUTO) IMMATURE GRANULOCYTE S [#/VOLUME] IN BLOOD 0.02 10*3/u L 0.00 - 0.06 09/23 Specimen Type: BLOOD No comment entered. Ordering Provider: KENAN DODD Report Released Date/Time: Sep 09, 2023 03:28 PM Reporting Lab: [facility] [place] [facility] [address] [facility] [address] Performing Lab: [facility] [facility] [address] [facility] [address] [place] [facility] [place] [facility] LIPID PANEL FASTING CHOLESTEROL [MASS/VOLUM E] IN SERUM OR PLASMA 288 mg/dL 7 - 199 03/11 H Specimen Type: SERUM No comment entered. Ordering Provider: KENAN DODD Report Released Date/Time: Jan 25, 2023 10:36 AM Reporting Lab: [place] [facility] [facility] [address] [facility] [address] Performing Lab: [facility] [facility] [address] [facility] [address] [facility] [facility] LIPID PANEL FASTING TRIGLYCERID E [MASS/VOLUM E] IN SERUM OR PLASMA 65 mg/dL 0 - 150 03/11 Specimen Type: SERUM No comment entered. Ordering Provider: KENAN DODD Report Released Date/Time: Jan 25, 2023 10:36 AM Reporting Lab: [facility] [place] [facility] [address] [facility] [address] Performing Lab: [facility] [place] [facility] [address] [facility] [address] [facility] [place] [facility] LIPID PANEL FASTING CHOLESTEROL IN LDL [MASS/VOLUM E] IN SERUM OR PLASMA BY CALCULATION 210 mg/dL 0 - 129 03/11 H Specimen Type: SERUM No comment entered. Ordering Provider: KENAN DODD Report Released Date/Time: Jan 25, 2023 10:36 AM Reporting Lab: [facility] [place] [facility] [address] [facility] [address] Performing Lab: [facility] [facility] [address] [facility] [address] [facility] [place] [facility] LIPID PANEL FASTING CHOLESTEROL .TOTAL/CHOL ESTEROL IN HDL [MASS RATIO] IN SERUM OR PLASMA 4.4 03/11 Specimen Type: SERUM No comment entered. Ordering Provider: KENAN DODD Report Released Date/Time: Jan 25, 2023 10:36 AM Reporting Lab: [facility] [facility] [address] [facility] [address] Performing Lab: [facility] [place] [facility] [address] [facility] [address] [facility] [place] [facility] LIPID PANEL FASTING CHOLESTEROL IN HDL [MASS/VOLUM E] IN SERUM OR PLASMA 65 mg/dL 40 - 60 03/11 H Specimen Type: SERUM No comment entered. Ordering Provider: KENAN DODD Report Released Date/Time: Jan 25, 2023 10:36 AM Reporting Lab: [facility] [place] [facility] [address] [facility] [address] Performing Lab: [facility] [facility] [address] [facility] [address] [facility] [place] [facility] BASIC METABOLIC PANEL (fasting) UREA NITROGEN [MASS/VOLUM E] IN SERUM OR PLASMA 19 mg/dL 7 - 25 03/11 Specimen Type: SERUM No comment entered. Ordering Provider: KENAN DODD Report Released Date/Time: Jan 25, 2023 10:36 AM Reporting Lab: [place] [facility] [place] [facility] [address] [facility] [address] Performing Lab: [place] [facility] [address] [facility] [address] [facility] BASIC METABOLIC PANEL (fasting) GLUCOSE [MASS/VOLUM E] IN SERUM OR PLASMA 94 mg/dL 65 - 100 03/11 Specimen Type: SERUM No comment entered. Ordering Provider: KENAN DODD Report Released Date/Time: Jan 25, 2023 10:36 AM Reporting Lab: [place] [facility] [place] [facility] [address] [facility] [address] Performing Lab: [place] [facility] [address] [address] [facility] BASIC METABOLIC PANEL (fasting) SODIUM [MOLES/VOLU ME] IN SERUM OR PLASMA 140 mmol/L 135 - 145 03/11 Specimen Type: SERUM No comment entered. Ordering Provider: KENAN DODD Report Released Date/Time: Jan 25, 2023 10:36 AM Reporting Lab: [place] [facility] [place] [address] [address] Performing Lab: [place] [facility] [address] [facility] [address] [facility] [facility] BASIC METABOLIC PANEL (fasting) POTASSIUM [MOLES/VOLU ME] IN SERUM OR PLASMA 4.8 mmol/L 3.5 - 5.0 03/11 Specimen Type: SERUM No comment entered. Ordering Provider: KENAN DODD Report Released Date/Time: Jan 25, 2023 10:36 AM Reporting Lab: [facility] [address] [facility] [address] Performing Lab: [place] [facility] [place] [address] [address] [facility] [place] [facility] BASIC METABOLIC PANEL (fasting) CHLORIDE [MOLES/VOLU ME] IN SERUM OR PLASMA 105 mmol/L 100 - 110 03/11 Specimen Type: SERUM No comment entered. Ordering Provider: KENAN DODD Report Released Date/Time: Jan 25, 2023 10:36 AM Reporting Lab: [place] [facility] [place] [address] [address] Performing Lab: [place] [facility] [place] [address] [address] [facility] [place] [facility] BASIC METABOLIC PANEL (fasting) CARBON DIOXIDE, TOTAL [MOLES/VOLU ME] IN SERUM OR PLASMA 27 meq/L 20 - 30 03/11 Specimen Type: SERUM No comment entered. Ordering Provider: KENAN DODD Report Released Date/Time: Jan 25, 2023 10:36 AM Reporting Lab: [place] [facility] [address] [address] Performing Lab: [place] [facility] [place] [address] [address] [place], [place] [address] [facility] [place] [facility] BASIC METABOLIC PANEL (fasting) CREATININE [MASS/VOLUM E] IN SERUM OR PLASMA 0.95 mg/dL 0.50 - 1.40 03/11 Specimen Type: SERUM No comment entered. Ordering Provider: KENAN DODD Report Released Date/Time: Jan 25, 2023 10:36 AM Reporting Lab: [facility] [place] [address] [address] Performing Lab: [place] [facility] [address] [address] [facility] [place] [facility] BASIC METABOLIC PANEL (fasting) GLOMERULAR FILTRATION RATE/1.73 SQ M.PREDICTED [VOLUME RATE/AREA] IN SERUM, PLASMA OR BLOOD BY CREATININE- BASED FORMULA (CKD-EPI) 83 mL/min 60 03/11 Specimen Type: SERUM No comment entered. Ordering Provider: KENAN DODD Report Released Date/Time: Jan 25, 2023 10:36 AM Reporting Lab: [facility] [place] [facility] [address] [facility] [address] Performing Lab: [facility] [place] [facility] [address] [facility] [address] [facility] [place] [facility] LIVER FUNCTION PROTEIN [MASS/VOLUM E] IN SERUM OR PLASMA 7.1 g/dL 6.0 - 8.3 03/11 Specimen Type: SERUM No comment entered. Ordering Provider: KENAN DODD Report Released Date/Time: Jan 25, 2023 10:36 AM Reporting Lab: [facility] [place] [facility] [address] [facility] [address] Performing Lab: [facility] [place] [facility] [address] [facility] [address] [place] [facility] [place] [facility] LIVER FUNCTION ALBUMIN [MASS/VOLUM E] IN SERUM OR PLASMA 3.6 g/dL 3.5 - 5.0 03/11 Specimen Type: SERUM No comment entered. Ordering Provider: KENAN DODD Report Released Date/Time: Jan 25, 2023 10:36 AM Reporting Lab: [facility] [place] [facility] [address] [facility] [address] Performing Lab: [facility] [place] [facility] [address] [facility] [address] [place] [facility] [place] [facility] LIVER FUNCTION ALKALINE PHOSPHATASE [ENZYMATIC ACTIVITY/VO LUME] IN SERUM OR PLASMA 173 U/L 40 - 150 03/11 H Specimen Type: SERUM No comment entered. Ordering Provider: KENAN DODD Report Released Date/Time: Jan 25, 2023 10:36 AM Reporting Lab: [facility] [place] [facility] [address] [facility] [address] Performing Lab: [facility] [place] [facility] [address] [facility] [address] [facility] [place] [facility] LIVER FUNCTION ASPARTATE AMINOTRANSF ERASE [ENZYMATIC ACTIVITY/VO LUME] IN SERUM OR PLASMA 21 U/L 5 - 34 05/15 /2023 Specimen Type: SERUM No comment entered. Ordering Provider: KENAN DODD Report Released Date/Time: Jan 25, 2023 10:36 AM Reporting Lab: [facility] [place] [facility] [address] [facility] [address] Performing Lab: [facility] [place] [facility] [address] [facility] [address] [facility] [place] [facility] LIVER FUNCTION ALANINE AMINOTRANSF ERASE [ENZYMATIC ACTIVITY/VO LUME] IN SERUM OR PLASMA 45 U/L 6 - 55 03/11 Specimen Type: SERUM No comment entered. Ordering Provider: KENAN DODD Report Released Date/Time: Jan 25, 2023 10:36 AM Reporting Lab: [facility] [place] [facility] [address] [facility] [address] Performing Lab: [facility] [place] [facility] [address] [facility] [address] [place] [facility] [place] [facility] LIVER FUNCTION BILIRUBIN.T OTAL [MASS/VOLUM E] IN SERUM OR PLASMA 0.5 mg/dL 0.2 - 1.2 03/11 Specimen Type: SERUM No comment entered. Ordering Provider: KENAN DODD Report Released Date/Time: Jan 25, 2023 10:36 AM Reporting Lab: [facility] [place] [facility] [address] [facility] [id number] Performing Lab[facility] [address] [address] [facility] Vital Signs Combined list of inpatient and outpatient Vital Signs from Department of Defense and Veterans Affairs, ranging from 12 months to all on record, depending upon the facility. Vital Sign Value Date Comments Source SYSTOLIC BLOOD PRESSURE 127 09/08/20 24 07:59:52 [facility] DIASTOLIC BLOOD PRESSURE 76 024 07:59:52 [facility] PULSE OXIMETRY 99 09/08/2024 07:59:52 [facility] WEIGHT 187 09/08/2024 07:59:52 [facility] BMI 24kg/m2 09/08/2024 07:59:52 [facility] PAIN 0 09/08/2024 07:59:52 [facility] HEIGHT 74 09/08/2024 07:59:52 [facility] TEMPERATURE 97.4 09/08/2024 07:59:52 [facility] PULSE 68 09/08/2024 07:59:52 [facility] RESPIRATION 16 09/08/2024 07:59:52 [facility] SYSTOLIC BLOOD PRESSURE 130 03/09/20 24 08:55:15 [facility] DIASTOLIC BLOOD PRESSURE 79 024 08:55:15 [facility] PULSE OXIMETRY 98 03/09/2024 08:55:15 [facility] WEIGHT 181 03/09/2024 08:55:15 [facility] BMI 25kg/m2 03/09/2024 08:55:15 [facility] PAIN 0 03/09/2024 08:55:15 [facility] TEMPERATURE 97.8 03/09/2024 08:55:15 [facility] PULSE 64 03/09/2024 08:55:15 [facility] RESPIRATION 16 03/09/2024 08:55:15 [facility] SYSTOLIC BLOOD PRESSURE 138 01/10/20 24 07:22:25 [facility] DIASTOLIC BLOOD PRESSURE 85 024 07:22:25 [facility] PULSE OXIMETRY 01/10/2024 07:22:25 [facility] WEIGHT 01/10/2024 07:22:25 [facility] PAIN 0 01/10/2024 07:22:25 [facility] HEIGHT 01/10/2024 07:22:25 [facility] TEMPERATURE 01/10/2024 07:22:25 [facility] PULSE 67 01/10/2024 07:22:25 [facility] RESPIRATION 01/10/2024 07:22:25 [facility] Encounters Combined list of: 1) Encounters from Department of Veterans Affairs facilities going back up to thelast 18 months. 2) Encounters from the Department of Defense facilities going back up to 280 months. Location Location Details Encounter Type Encounter Number Reason For Visit Attending Provider ADM Date DC Date Status Disposition Source [facility] [id number] Diagnos is: ICD-10- CM F43.10 Post-tr aumatic stress disorde r, unspeci fied
MARK,[facility] ISTIE 05/13 [facility] [id number] Diagnos is: ICD-10- CM F43.10 Post-tr aumatic stress disorde r, unspeci fied
MARK,[facility] ISTIE 05/20 [facility] [id number] Diagnos is: ICD-10- CM F43.10 Post-tr aumatic stress disorde r, unspeci fied
MARK,[facility] 05/27 [facility] [id number] Diagnos is: ICD-10- CM F43.10 Post-tr aumatic stress disorde r, unspeci fied
MARK,[facility] ISTIE 06/03 [facility] [id number] Diagnos is: ICD-10- CM F43.10 Post-tr aumatic stress disorde r, unspeci fied
MARK,[facility] IST[facility] 06/10 [facility] [id number] Diagnos is: ICD-10- CM F43.10 Post-tr aumatic stress disorde r, unspeci fied
[facility] [id number] Diagnos is: ICD-10- CM F43.10 Post-tr aumatic stress disorde r, unspeci fied
MARK,[facility] ISTIE 06/24 [facility] [id number] Diagnos is: ICD-10- CM F43.10 Post-tr aumatic stress disorde r, unspeci fied
MARK,[facility] ISTIE 07/08 [facility] Out[facility] Encounter [id number] 07/11 [facility] CASE [facility] LIT [id number] Diagnos is: ICD-10- CM K03.6 Deposit s [accret ions] on teeth<b r/> BELYSHEV,N ADEZHDA 07/12 [facility] En[facility] [id number] MARK,[facility]ST[facility] 07/17 [facility] [id number] Diagnos is: ICD-10- CM F43.10 Post-tr aumatic stress disorde r, unspeci fied
MARK,[facility] IST[facility] 07/22 [facility] [id number] Diagnos is: ICD-10- CM F43.10 Post-tr aumatic stress disorde r, unspeci fied
MARK,[facility] ISTIE 07/29 [facility] PSYTX W PT W E/M 30 MIN [id number] Diagnos is: ICD-10- CM F10.21 Alcohol depende nce, in remissi on
Rojelio WIGGINS B 07/30 [facility] Out[facility] En[facility] [id number] 08/11 [facility] [id number] Diagnos is: ICD-10- CM F43.10 Post-tr aumatic stress disorde r, unspeci fied
MARK,[facility] 08/12 [facility] Out[facility] En[facility] [id number] 08/26 [facility] [id number] Diagnos is: ICD-10- CM F43.10 Post-tr aumatic stress disorde r, unspeci fied
MARK,[facility] I[facility] 09/02 [facility] [id number] Diagnos is: ICD-10- CM F43.10 Post-tr aumatic stress disorde r, unspeci fied
MARK,[facility] I[facility] 09/16 [facility] Out[facility] Encounter [id number] 09/18 [facility] [id number] Diagnos is: ICD-10- CM F43.10 Post-tr aumatic stress disorde r, unspeci fied
MARK,[facility] ISTIE 09/23 [facility] OFFICE O/P EST MOD 30-39 MIN [id number] Diagnos is: ICD-10- CM F43.12 Post-tr aumatic stress disorde r, chronic
AHMED,MOHA MMED JAWED 09/26 [facility] [id number] Diagnos is: ICD-10- CM F43.10 Post-tr aumatic stress disorde r, unspeci fied
MARK,[facility] ISTIE 09/30 [facility] [id number] Diagnos is: ICD-10- CM F43.10 Post-tr aumatic stress disorde r, unspeci fied
MARK,[facility] 10/07 [facility] Out[facility] Encounter [id number] 10/11 [facility] [id number] Diagnos is: ICD-10- CM F43.10 Post-tr aumatic stress disorde r, unspeci fied
MARK,[facility] ISTIE 10/14 [facility] OFF/OP EST FEBRUARY X REQ PHY/QHP [id number] Diagnos is: ICD-10- CM Z01.30 Encount er for exam of blood pressur e w/o abnorma l finding s
Zain AGUDELO H 10/23 [facility] PSYTX W PT W E/M 30 MIN [id number] Diagnos is: ICD-10- CM F43.12 Post-tr aumatic stress disorde r, chronic
Rojelio WIGGINS CARLA B 10/24 [facility] [id number] Diagnos is: ICD-10- CM F43.10 Post-tr aumatic stress disorde r, unspeci fied
MARK,[facility] ISTIE 11/04 [facility] [id number] Diagnos is: ICD-10- CM F43.10 Post-tr aumatic stress disorde r, unspeci fied
MARK,[facility] ISTIE 11/18 [facility] [id number] Diagnos is: ICD-10- CM F43.10 Post-tr aumatic stress disorde r, unspeci fied
MARK,[facility] ISTIE 12/02 [facility] [id number] Diagnos is: ICD-10- CM F43.10 Post-tr aumatic stress disorde r, unspeci fied
MARK,[facility] ISTIE 12/09 [facility] HEARING AID REPAIR/MOD IFYING [id number] Diagnos is: ICD-10- CM Z46.1 Encount er for fitting and adjustm ent of hearing aid<br/ > SENIOR,GRISEL OLE L 12/17 [facility] [id number] Diagnos is: ICD-10- CM F43.10 Post-tr aumatic stress disorde r, unspeci fied
MARK,[facility] ISTIE 12/23 [facility] [id number] Diagnos is: ICD-10- CM F43.10 Post-tr aumatic stress disorde r, unspeci fied
MARK,[facility] ISTIE 12/29 [facility] HEARING AID REPAIR/MOD IFYING [id number] Diagnos is: ICD-10- CM Z46.1 Encount er for fitting and adjustm ent of hearing aid<br/ > Kinza PALMA 01/02 [facility] [id number] Diagnos is: ICD-10- CM F43.10 Post-tr aumatic stress disorde r, unspeci fied
MARK,[facility] ISTIE 01/05 [facility] Out[facility] Encounter [id number] 01/08 [facility] Out[facility] Encounter [id number] 01/08 [facility] CASE MGMT-[facility] LIT [id number] Diagnos is: ICD-10- CM K03.6 Deposit s [accret ions] on teeth<b r/> BELYSHEV,N ADEZHDA 01/09 [facility] DENTAL BITEWING FOUR IMAGES [id number] Diagnos is: ICD-10- CM K08.9 Disorde r of teeth and support ing structu res, unspeci fied
MIKAELA TORRES 01/09 [facility] [id number] Diagnos is: ICD-10- CM F43.10 Post-tr aumatic stress disorde r, unspeci fied
MARK,[facility] ISTIE 01/12 [facility] Outpatient Encounter [id number] 01/17 [facility] [id number] Diagnos is: ICD-10- CM F43.10 Post-tr aumatic stress disorde r, unspeci fied
MARK,[facility] ISTIE 01/19 [facility] [id number] Diagnos is: ICD-10- CM F43.10 Post-tr aumatic stress disorde r, unspeci fied
MARK,[facility] ISTIE 01/26 [facility] [id number] Diagnos is: ICD-10- CM F43.10 Post-tr aumatic stress disorde r, unspeci fied
MARK,[facility] ISTIE 02/02 [facility] [id number] Diagnos is: ICD-10- CM F43.10 Post-tr aumatic stress disorde r, unspeci fied
MARK,[facility] ISTIE 02/09 [facility] [id number] Diagnos is: ICD-10- CM F43.10 Post-tr aumatic stress disorde r, unspeci fied
MARK,[facility] ISTIE 02/16 [facility] [id number] Diagnos is: ICD-10- CM F43.10 Post-tr aumatic stress disorde r, unspeci fied
MARK,[facility] ISTIE 02/23 [facility] Out[facility] Encounter [id number] 03/09 [facility] OFFICE O/P EST MOD 30 MIN [id number] Diagnos is: ICD-10- CM 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 , unspeci fied site
FURCOLO,TI NA 03/09 [facility] [id number] Diagnos is: ICD-10- CM F43.10 Post-tr aumatic stress disorde r, unspeci fied
MARK,[facility] ISTIE 03/09 [facility] [id number] Diagnos is: ICD-10- CM F43.10 Post-tr aumatic stress disorde r, unspeci fied
MARK,[facility] ISTIE 03/16 [facility] PSYTX W PT W E/M 30 MIN [id number] Diagnos is: ICD-10- CM F10.21 Alcohol depende nce, in remissi on
FELICIANORojelio CARLA B 03/26 [facility] [id number] Diagnos is: ICD-10- CM F43.10 Post-tr aumatic stress disorde r, unspeci fied
MARK,CH[facility] ISTIE 03/30 [facility] [id number] Diagnos is: ICD-10- CM F43.10 Post-tr aumatic stress disorde r, unspeci fied
MARK,CH[facility] ISTIE 04/06 [facility] [id number] Diagnos is: ICD-10- CM F43.10 Post-tr aumatic stress disorde r, unspeci fied
MARK,CH[facility] ISTIE 05/04 [facility] [id number] Diagnos is: ICD-10- CM F43.10 Post-tr aumatic stress disorde r, unspeci fied
MARK,CH[facility] ISTIE 05/11 [facility] [id number] Diagnos is: ICD-10- CM F43.10 Post-tr aumatic stress disorde r, unspeci fied
MARK,CH[facility] ISTIE 05/18 [facility] Out[facility] Encounter [id number] 05/25 [facility] [id number] Diagnos is: ICD-10- CM F43.10 Post-tr aumatic stress disorde r, unspeci fied
MARK,CH[facility] ISTIE 06/01 [facility] [id number] Diagnos is: ICD-10- CM F43.10 Post-tr aumatic stress disorde r, unspeci fied
MARK,[facility] ISTIE 06/08 [facility] [id number] Diagnos is: ICD-10- CM F43.10 Post-tr aumatic stress disorde r, unspeci fied
MARK,[facility] ISTIE 06/15 [facility] [id number] Diagnos is: ICD-10- CM F43.10 Post-tr aumatic stress disorde r, unspeci fied
MARK,CH[facility] ISTIE 06/22 [facility] [id number] Diagnos is: ICD-10- CM F43.10 Post-tr aumatic stress disorde r, unspeci fied
MARK,CH[facility] ISTIE 07/13 [facility] HEARING AID REPAIR/MOD IFYING [id number] Diagnos is: ICD-10- CM Z46.1 Encount er for fitting and adjustm ent of hearing aid<br/ > SHAYNE GARRISON 07/13 [facility] Out[facility] Encounter 1.07/15 [facility] CASE MG[facility]AL [facility] LIT [id number] Diagnos is: ICD-10- CM K03.6 Deposit s [accret ions] on teeth<b r/> Svetlana AGOSTO 07/16 [facility] PSYCH[facility] APY [id number] Diagnos is: ICD-10- CM F43.10 Post-tr aumatic stress disorde r, unspeci fied
MARK,CH[facility] ISTIE 07/20 [facility] [id number] Diagnos is: ICD-10- CM F43.10 Post-tr aumatic stress disorde r, unspeci fied
MARK,CH[facility] ISTIE 07/27 [facility] PSYCH[facility]Y [id number] Diagnos is: ICD-10- CM F43.10 Post-tr aumatic stress disorde r, unspeci fied
MARK,CH[facility] ISTIE 08/03 [facility] Out[facility] Encounter [id number] 08/06 [facility]CH[facility] [id number] Diagnos is: ICD-10- CM F43.10 Post-tr aumatic stress disorde r, unspeci fied
MARK,CH[facility] ISTIE 08/24 [facility] Out[facility] Encounter [id number] 08/28 [facility]YCH[facility]Y [id number] Diagnos is: ICD-10- CM F43.10 Post-tr aumatic stress disorde r, unspeci fied
MARK,CH[facility] ISTIE 08/31 [facility] OFFICE O/P EST MOD 30 MIN [id number] Diagnos is: ICD-10- CM R97.20 Elevate d prostat e specifi c antigen [PSA]<b r/> FURCOLO,TI NA 09/08 [facility] PSYTX W PT W E/M 30 MIN [id number] [id number] Diagnos is: ICD-10- CM F43.12 Post-tr aumatic stress disorde r, chronic
FELICIANO,P CARLA B 09/08 [facility]YCH[facility] [id number] Diagnos is: ICD-10- CM F43.10 Post-tr aumatic stress disorde r, unspeci fied
MARK,[facility] ISTIE 09/14 [facility]CH[facility] [id number] 1. Diagnos is: ICD-10- CM F43.10 Post-tr aumatic stress disorde r, unspeci fied
MARK,CHR ISTIE 09/21 [facility] [id number] 1. Diagnos is: ICD-10- CM F43.10 Post-tr aumatic stress disorde r, unspeci fied
MARK,CHR ISTIE 10/05 [facility] [id number] Diagnos is: ICD-10- CM F43.10 Post-tr aumatic stress disorde r, unspeci fied
MARK,CHR ISTIE 10/12 [facility] QNHP OL DIG ASSMT&MGMT 21+ [id number] [id number] Diagnos is: ICD-10- CM F43.12 Post-tr aumatic stress disorde r, chronic
LABELLA,KE RI DONAL 10/15 [facility] GROUP PSYCHOTHER [facility]Y [id number] [id number] Diagnos is: ICD-10- CM F43.10 Post-tr aumatic stress disorde r, unspeci fied
MARK,CHR ISTIE 10/19 [facility] HC PRO PHONE CALL 5-10 MIN [id number] [id number] Diagnos is: ICD-10- CM F43.12 Post-tr aumatic stress disorde r, chronic
LABELLA,KE RI DONAL 10/27 [facility] GROUP PSYCHOTHER APY [id number] Diagnos is: ICD-10- CM F43.10 Post-tr aumatic stress disorde r, unspeci fied
MARK,CHR ISTIE 11/02 [facility] Social History Combined list of available smoking, tobacco, and other social history from Department of Defense and Veterans Affairs facilities. Social History Type Response Date Comment Source Tobacco smoking status VAIS VA[facility]ACCO FORMER USER 03/09/2024 [facility] History of tobacco use VA-TOBACCO QUIT 15 YRS OR MORE 03/09/2024 [facility] History of tobacco use VA-TOBACCO FORMER USER 03/18/2023 [facility] History of tobacco use VA-TOBACCO QUIT 15 YRS OR MORE 01/11/2022 [facility] History of tobacco use VA-TOBACCO QUIT 15 YRS OR MORE 12/26/2020 [facility] History of tobacco use FL-TOBACCO FORMER USER 12/08/2019 [facility] History of tobacco use FL-TOBACCO FORMER USER 10/14/2018 [facility] History of tobacco use QUIT TOBACCO USE > 7 YEARS AGO 12/12/2017 quit > 30 yrs ( 2-3 pks a day) [facility] Plan of Care List of future care activities from [facility] facilities. Additional future care activities may be listed in the Assessment and Plan section. Date/Time Care Activity Care Activity Detail Facili ty 11/23/2024 AMBULATORY - PSYCHIATRY AMBULATORY - PSYC HIATRY [facility] 12/29/2024 AMBULATORY - NONE AMBULATORY - NONE [facility] 01/12/2025 AMBULATORY - NONE AMBULATORY - NONE [facility] 03/09/2025 AMBULATORY - MEDICINE AMBULATORY - MEDICI [facility] Advance Directives List of completed, amended, or rescinded Advance Directives on record at [facility] facilities. An actual copy of the Directive is not included. Date Advance Directive Provider Source 02/09/2019 ADVANCE DIRECTIVE VAN MORENO [facility] 02/08/2019 ADVANCE DIRECTIVE [facility]
--- OUTSIDE RECORDS SUMMARY | 2024-11-04 08:54 | XMS_ITS ---
Author Organization [facility] Address [address] [facility] [place] [address] Care Team Providers Care Ticker Maintainer Name Role Phone Kleber Billy MD Primary Care Provider Unavaila Osman Vealzco Unavailable [phone] Allergies Allergen (clinical drug ingredient) Drug/Non Drug [...] End Date Status Benazepril HCl 20 MG Orally Active Ammonium Lactate 12 % APPLY TOPICALLY TO THE FEET TWICE DAILY for 30 Active Simvastatin 40 MG Orally No t-Taking Rosuvastatin Calcium 20 MG 1 tablet Orally Once a day for 30 day(s) Active Jessica Allergy 180 MG 1 tablet Orally O nce a day Active Social History Tobacco Use: Social History Observation Description Date Details (start date - stop date) Never Smoker NA - NA Tobacco use other than smoking: Question Answer Notes Are you an other tobacco user? No Tobacco Control (Standard) Question Answer Notes Tobacco use: Nonsmoker Procedures Procedure Date Ordered Date Performed Result Body Sit e 41212-TDHLBTC NAIL, 6 OR MORE 11/03/2024 N/A 23891-DXKK SKIN LESIONS, OVER 4 11/03/2024 N/A Encounters Encounter Location Date Provider Diagnosis [facility] [address] [address] 11/03/2024 Osman Blanc Atherosclerosis of douglas artery of both lower extremities, with unspecified presence of clinical manifestation I70.203 ; Tinea unguium B35.1 ; Pain in right toe(s) M79.674 and Pain in left toe(s) M79.675 Assessments Encounter Date Diagnosis (ICD Code) Assessment Notes Treatment Notes Treatment Clinical Notes Section Notes 11/03/2024 Atherosclerosis of douglas artery of both lower extremities, with unspecified presence of clinical manifestation (ICD-10 - I70.203) 11/03/2024 Tinea unguium (ICD-10 - B35.1) 11/03/2024 Pain in right toe(s) (ICD-10 - M79.674) 11/03/2024 Pain in left toe(s) (ICD-10 - M79.675) Plan Of Treatment Pending Test Test Name Order Date 30522-OKQPILI NAIL, 6 OR MORE 11/03/2024 93535-YNWG SKIN LESIONS, OVER 4 11/03/19 25 Next Appt Details Follow Up: prn, Reason: Provider Name:Osman Blanc , 02/02/2025 09:00:00 AM, [address] [place] [address], [place], [address], Procedure Notes * Category Sub-Category Detail Notes Debride Nail 6-10 Nail debridement Due to the cl inical pathology outlined in the exam findings, performance of this nail treatment is medically necessary as its management by an unskilled/untrained nonprofessional would put this patients foot and overall health at risk. Therefore, debridement to affected nail(s), as described in exam ( TA, T1, T2, T4, T5, T6, T7, T9), was performed exclusively by the physician of record to reduce/remove overall nail length, girth, thickness, subungual debris, and necrotic tissue, by manual and/or electrical means through the use of a nail nipper and/or dremel-type chili pepper grinder, to a more viable healthy nail plate or bed tissue 6-10 nails in total. Silver nitrate was used for any petechial bleeding as necessary. Definitive antifungal treatment options, both pharmaceutical and surgical, have been reviewed and discussed with the patient. The patient solely prefers the use of intermittent/as needed professional debridement services for their nail condition and understands the need for additional periodic treatments to maintain effectiveness in symptomatic relief - 05777 Keratoma Treatment Parring or Cutting o f Benign Hyperkeratotic Lesion(s) (-57) More than 4 Lesions - Due to the at risk nature of the patients medical condition as documented in the exam findings, performance of this keratoderma treatment is medically necessary as its management by an unskilled/untrained nonprofessional would put this patients foot and overall health at risk. Therefore, the benign hyperkeratotic lesions, ( 8) in total, locations as stated and described in the exam ( Dorsal, DIPJ, T4, SUB MTH (s), 1, B/L , SUB MTH (s), 5, B/L , SUB 5th MTBase, Left , Plantar, Heel(s), B/L), were pared, and/or cut utilizing a sterile 15 blade, tissue nippers, and/or power dremel instrumentation by the physician of record - 94215, Q8 Progress Notes * Lynette SANCHEZ JrDOB:[birth year] (74 yo M)Acc No.[id number]:11/03/2024 Progress Note Patient:?Lynette SANCHEZ Jr Provider:?Osman Blanc DPM :1950???Age:74 Y???Sex:Male Praveen e:11/03/2024 [address] [address] [id number] Pcp:Kleber Billy MD Subjective: * Chief Complaints: [...] hip surgery 07/2015 * Hospitalization/Major Diagno stic Procedure:?[facility] [place]- Unknown Headache Migraine for 5 days same day took off med simvastatin 12/25/22 * Family History:?Mother: unkn own.?Father: , diagnosed with Diabetic - NIDDM, Unspecified essential hypertension, Other malignant neoplasm of unspecified site.? * Social History:?Tobacco Use:?Tobacco use other than smoking?Are you an other tobacco user??No ?Tobacco Control (Standard)?Tobacco use:?Nonsmoker * Medications:?TakingRosuvasta tin Calcium 20 MG Tablet [...] Products: swellingShrimp (Diagnostic): swellingSeasonaleyes[Allergies Verified] Objective: * Vitals:? * Examination: ???Vascular: ?DP PULSES (B):?1/4, B/L.?PT PULSES (B):? 0/4, B/L.?CAPILLARY FILL TIME:? delayed, all digits, B/L.?TROPHIC CONDITION-TEXTURE/ELASTICITY/TURGOR/HAIR GROWTH (B):? decreased, with sparse to absent hair growth, B/L.?TEMPERTURE GRADIENT (C):? decreased, cool to cool, proximal to distal, B/L.?PIGMENTATION:? mottled, B/L.?EDEMA (C):?absent, B/L.?CLAUDICATION (C):?STILL admits, 16-30 min, B/L, Left > Right.?Nails: ?NAILS are:? Elongated, overgrown, dystrophic, lytic, greater than 3mm thick, discolored and friable with crumbly malodorous subungual debris, with pain on palpation, TA, T1, T2, T4, T5, T6, T7, T9,all other nails not described with characteristics as possessing mycosis are elongated, overgrown, and dystrophic.?Dermatologic: ?SKIN FINDINGS:?Skin exam reveals Keratotic lesion(s) located at, Dorsal, DIPJ, T4, SUB MTH (s), 1, B/L , SUB MTH (s), 5, B/L , SUB 5th MTBase, Left , Plantar, Heel(s), B/L.? Assessment: * Assessment: 1.?Tinea unguium - B35.1???2 .?Atherosclerosis of douglas artery of both lower extremities, with unspecified presence of clinical manifestation - I70.203 (Primary)???3.?Pain in right toe(s) - M79.674???4.?Pain in left toe(s) - M79.675??? Plan: * Treatment: 2.?Tinea unguium?Procedure: 68009-JWEFUBN NAIL, 6 OR MORE * Procedures:?Debride Nail 6-10:?Nail debridement?Due to the clinical pathology outlined in the exam findings, performance of this nail treatment is medically necessary as its management by an unskilled/untrained nonprofessional would put this patients foot and overall health at risk. Therefore, debridement to affected nail(s), as described in exam (?TA,?T1,?T2,?T4,?T5,?T6,?T7,?T9), was performed exclusively by the physician of record to reduce/remove overall nail length, girth, thickness, subungual debris, and necrotic tissue, by manual and/or electrical means through the use of a nail nipper and/or dremel-type chili pepper grinder, to a more viable healthy nail plate or bed tissue 6- 10 nails in total. Silver nitrate was used for any petechial bleeding as necessary. Definitive antifungal treatment options, both pharmaceutical and surgical, have been reviewed and discussed with the patient. The patient solely prefers the use of intermittent/as needed professional debridement services for their nail condition and understands the need for additional periodic treatments to maintain effectiveness in symptomatic relief - 17674.?Keratoma Treatment:?Parring or Cutting of Benign Hyperkeratotic Lesion(s)?(-57) More than 4 Lesions - Due to the at risk nature of the patients medical condition as documented in the exam findings, performance of this keratoderma treatment is medically necessary as its management by an unskilled/untrained nonprofessional would put this patients foot and overall health at risk. Therefore, the benign hyperkeratotic lesions, ( 8) in total, locations as stated and described in the exam (?Dorsal,?DIPJ,?T4,?SUB MTH (s),?1,?B/L?,?SUB MTH (s),?5, B/L?,?SUB 5th MTBase,?Left?,?Plantar,?Heel(s),?B/L), were pared, and/or cut utilizing a sterile 15 blade, tissue nippers, and/or power dremel instrumentation by the physician of record - 85396, Q8.? * Procedure Codes:?84966 DEBRI DE NAIL, 6 OR MORE, Modifiers: XS 78237 TRIM SKIN LESIONS, OVER 4, Modifiers: XS , Q8 * Follow Up:?prn * Images: * Sign off status: Completed true * Provider:?Osman Blanc DPM Date:?2024 Generated for Ally gomez/Leann/Maryjane on:?11/04/2024 08:53 AM [...] B/L , SUB 5th MTBase, Left , Plantar, Heel(s), B/L Vascular DP PULSES (B): 1/4, [...] TA, T1, T2, T4, T5, T6, T7, T9,all other nails not described with characteristics as possessing mycosis are elongated, overgrown, and dystrophic
--- OUTSIDE RECORDS SUMMARY | 2024-11-04 08:54 | XMS_ITS ---
Author Organization [facility] Lucie agrawal [facility] Address [address] [place] [address] Care Team Providers Care Strainer Tender Name Role Phone Kleber Billy MD Primary Care Provider Unavaila Osman Velazco Unavailable [phone] Allergies Allergen (clinical drug ingredient) Drug/Non Drug [...] Ordered Date Performed Result Body Sit e 02203-WVZPKRF NAIL, 6 OR MORE 07/28/2024 N/A 97758-AHUJ SKIN LESIONS, OVER 4 07/28/2024 N/A Encounters Encounter Location Date [facility] [address] [place] [address] 07/28/2024 Osman Blanc Atherosclerosis of [place] artery of both lower extremities, with unspecified presence of clinical manifestation I70.203 ; Tinea unguium B35.1 ; Pain in right toe(s) M79.674 and Pain in left toe(s) M79.675 Assessments Encounter Date Diagnosis (ICD Code) Assessment Notes Treatment Notes Treatment Clinical Notes Section Notes 07/28/2024 Atherosclerosis of [place] artery of both lower extremities, with unspecified presence of clinical manifestation (ICD-10 - I70.203) 07/28/2024 Tinea unguium (ICD-10 - B35.1) 07/28/2024 Pain in right toe(s) (ICD-10 - M79.674) 07/28/2024 Pain in left toe(s) (ICD-10 - M79.675) Plan Of Treatment Pending Test Test Name Order Date 76116-TLYRCSG NAIL, 6 OR MORE 07/28/2024 35910-TVOQ SKIN LESIONS, OVER 4 07/28/20 24 Next Appt Details Follow Up: prn, Reason: Provider Name:Osman Blanc , 02/02/2025 09:00:00 AM, [address] [place] [address], [place], [address], Procedure Notes * Category Sub-Category Detail Notes Debride Nail 6-10 Nail debridement Performance o f this nail treatment by a nonprofessional would put this patients foot and overall health at risk. Therefore, nail debridement was performed extensively to reduce/remove overall nail length, girth, thickness, subungual debris, and necrotic tissue, by manual and/or electrical means through the use of a nail nipper and/or dremel-type external grinder, to a more viable healthy nail plate or bed tissue 6-10. Silver nitrate used for any petechial bleeding as necessary. Definitive antifungal treatment options have been reviewed and discussed with the patient. The patient chooses, no pharmaceutical tx - 80581 Keratoma Treatment Parring or Cutting o f Benign Hyperkeratotic Lesion(s) (-57) More than 4 Lesions - The Benign hyperkeratotic lesions, as described above were pared, and/or cut utilizing a sterile 15 blade, tissue nippers, and/or dremel - 40740 , Q8 Progress Notes * Lynette SANCHEZ JrDOB:[birth year] (74 yo M)Acc No.[id number]:07/28/2024 Progress Note Patient:Lynette Guzman Provider:?Osman Blanc DPM :1950???Age:74 Y???Sex:Male Praveen e:07/28/2024 Address:[facility] [place], [place] Pcp:Kleber Billy MD Subjective: * Chief Complaints: [...] hip surgery 07/2015 * Hospitalization/Major Diagno stic Procedure:?[facility] [place] [facility]- Unknown Headache Migraine for 5 days [...] Assessment: 1.?Tinea unguium - B35.1?2.? Atherosclerosis of [place] artery of both lower extremities, with unspecified presence of clinical manifestation - I70.203 (Primary)?3.?Pain in right toe(s) - M79.674?4.?Pain in left toe(s) - M79.675? Plan: * Treatment: 2.?Tinea unguium?Procedure: 31080-VUZPCZK NAIL, 6 OR MORE * Procedures:?Debride Nail 6-10:?Nail debridement?Performance of this nail treatment by a nonprofessional would put this patients foot and overall health at risk. Therefore, nail debridement was performed extensively to reduce/remove overall nail length, girth, thickness, subungual debris, and necrotic tissue, by manual and/or electrical means through the use of a nail nipper and/or dremel-type external grinder, to a more viable healthy nail plate or bed tissue 6-10. Silver nitrate used for any petechial bleeding as necessary. Definitive antifungal treatment options have been reviewed and discussed with the patient. The patient chooses, no pharmaceutical tx - 59189.?Keratoma Treatment:?Parring or Cutting of Benign Hyperkeratotic Lesion(s)?(-57) More than 4 Lesions - The Benign hyperkeratotic lesions, as described above were pared, and/or cut utilizing a sterile 15 blade, tissue nippers, and/or dremel - 35338 , Q8.? * Procedure Codes:?98341 DEBRI DE NAIL, 6 OR MORE, Modifiers: XS 62072 TRIM SKIN LESIONS, OVER 4, Modifiers: XS [...]
--- OUTSIDE RECORDS SUMMARY | 2024-11-04 08:54 | XMS_ITS | Patient Health Record ---
[facility] [place] Address [address] [facility] [place] [address] Care Team Providers Care Bellstand Attendant Name Role Phone Kleber Billy MD Primary Care Provider Osman Rowell Unavailable [phone] Allergies Allergen (clinical drug ingredient) Drug/Non Drug [...] tablet Orally O nce a day Active Immunizations Vaccine Route Administration Date Status Comme nts COVID-19 Moderna Vaccine Unknown 09/09/2021 Administered 1st 12/07/2020 2nd 01/04/2021 Social History Tobacco Use: Social History Observation Description Date Details (start date - stop date) Never Smoker NA - NA Alcohol Screen Question Answer Notes Did you have a drink containing alcohol in the p ast year? No Points 0 Interpretation Negative Tobacco use other than smoking: Question Answer Notes Are you an other tobacco user? No Tobacco Control (Standard) Question Answer Notes Tobacco use: Nonsmoker Problems Problem Type SNOMED Code ICD Code Onset Dates Problem Status W/U Status Risk Notes Problem Atherosclerosis of [place] arteries of the extremities ([id number]) Atherosclerosis of [place] artery of both lower extremities, with unspecified presence of clinical manifestation (I70.203) Active confirmed Vital Signs Blood pressure diastolic 80 mm Hg 07/28/2024 Height 6ft 2in in 07/28/2024 Blood pressure systolic 120 mm Hg 07/28/2024 Weight 186 lbs 07/28/2024 BMI 23.88 kg/m2 07/28/2024 Procedures Procedure Date Ordered Date Performed Result Body Sit e 08055-UTDVMAF NAIL, 6 OR MORE 01/31/2024 N/A 90147-QNAP SKIN LESIONS, OVER 4 01/31/2024 N/A 98489-XBPMPXH NAIL, 6 OR MORE 05/05/2024 N/A 08548-IHEP SKIN LESIONS, OVER 4 05/05/2024 N/A 33589-IDJYMOE NAIL, 6 OR MORE 07/28/2024 N/A 14342-AULV SKIN LESIONS, OVER 4 07/28/2024 N/A 06988-FLNJQFI NAIL, 6 OR MORE 11/03/2024 N/A 11074-VBRS SKIN LESIONS, OVER 4 11/03/2024 N/A Encounters Encounter Location Date Provider Diagnosis [address] [address] 01/31/2024 Osman Blanc Atherosclerosis of [place] artery of both lower extremities, with unspecified presence of clinical manifestation I70.203 ; Tinea unguium B35.1 ; Pain in right toe(s) M79.674 ; Pain in left toe(s) M79.675 and Xerosis of skin L85.[address] [address] 05/05/2024 Osman Blanc Atherosclerosis of [place] artery of both lower extremities, with unspecified presence of clinical manifestation I70.203 ; Tinea unguium B35.1 ; Pain in right toe(s) M79.674 ; Pain in left toe(s) M79.675 and Xerosis of skin L85.[address] [address] 07/28/2024 Osmansergio Blanc Atherosclerosis of [place] artery of both lower extremities, with unspecified presence of clinical manifestation I70.203 ; Tinea unguium B35.1 ; Pain in right toe(s) M79.674 and Pain in left toe(s) M79.675 [facility] [address] [address] 11/03/2024 Osman Blanc Atherosclerosis of [place] artery of both lower extremities, with unspecified presence of clinical manifestation I70.203 ; Tinea unguium B35.1 ; Pain in right toe(s) M79.674 and Pain in left toe(s) M79.675 Assessments Encounter Date Diagnosis (ICD Code) Assessment Notes Treatment Notes Treatment Clinical Notes Section Notes 01/31/2024 Tinea unguium (ICD-10 - B35.1) 01/31/2024 Atherosclerosis of [place] artery of both lower extremities, with unspecified presence of clinical manifestation (ICD-10 - I70.203) 05/05/2024 Tinea unguium (ICD-10 - B35.1) 05/05/2024 Atherosclerosis of [place] artery of both lower extremities, with unspecified presence of clinical manifestation (ICD-10 - I70.203) 07/28/2024 Tinea unguium (ICD-10 - B35.1) 07/28/2024 Atherosclerosis of [place] artery of both lower extremities, with unspecified presence of clinical manifestation (ICD-10 - I70.203) 11/03/2024 Tinea unguium (ICD-10 - B35.1) 11/03/2024 Atherosclerosis of [place] artery of both lower extremities, with unspecified presence of clinical manifestation (ICD-10 - I70.203) 11/03/2024 Pain in right toe(s) (ICD-10 - M79.674) 07/28/2024 Pain in right toe(s) (ICD-10 - M79.674) 05/05/2024 Pain in right toe(s) (ICD-10 - M79.674) 01/31/2024 Pain in right toe(s) (ICD-10 - M79.674) 05/05/2024 Pain in left toe(s) (ICD-10 - M79.675) 01/31/2024 Pain in left toe(s) (ICD-10 - M79.675) 07/28/2024 Pain in left toe(s) (ICD-10 - M79.675) 11/03/2024 Pain in left toe(s) (ICD-10 - M79.675) 05/05/2024 Xerosis of skin (ICD-10 - L85.3) 01/31/2024 Xerosis of skin (ICD-10 - L85.3) Plan Of Treatment Pending Test Test Name Order Date 26557-QEIQAEF NAIL, 6 OR MORE 04/10/2022 43856-JZSXAXS NAIL, 6 OR MORE 07/10/2022 39741-CZBEPLC NAIL, 6 OR MORE 10/12/2022 65929-NFQMCET NAIL, 6 OR MORE 01/25/2023 87067-NLRPTOM NAIL, 6 OR MORE 04/23/2023 15732-DDMEYRL NAIL, 6 OR MORE 07/26/2023 34451-PBPWALS NAIL, 6 OR MORE 11/01/2023 28670-LVYFAQE NAIL, 6 OR MORE 01/31/2024 72711-MUJRXXH NAIL, 6 OR MORE 05/05/2024 82798-MSJRFLB NAIL, 6 OR MORE 07/28/2024 68168-KNRDAPB NAIL, 6 OR MORE 11/03/2024 52094-FPRI SKIN LESIONS, OVER 4 11/03/19 25 42481-KXIC SKIN LESIONS, OVER 4 07/28/20 24 73589-ZQBQ SKIN LESIONS, OVER 4 05/05/20 24 21385-KVNM SKIN LESIONS, OVER 4 01/31/20 24 59487-OAXS SKIN LESIONS, OVER 4 11/01/19 24 01413-DTDR SKIN LESIONS, OVER 4 07/26/20 23 88475-EFWS SKIN LESIONS, OVER 4 04/23/20 23 60568-SQSD SKIN LESIONS, OVER 4 01/26/20 23 92588-VVCY SKIN LESIONS, OVER 4 10/12/20 22 51744-BYGH SKIN LESIONS, OVER 4 07/10/20 22 78850-NZBV SKIN LESIONS, OVER 4 04/10/20 22 Next Appt Details Provider Name:Osman Blanc , 02/02/2025 09:00:00 AM, [address] [place] [address], [place], [address], Insurance Providers Payer Name Payer Address Payer Phone Subscriber Number Group Number Insured Name Patient Relationship to Insured Coverage Start Date Coverage End Date [employer] Medicare Adv-22874 [address] [address] [place] [address] [id number] Lynette Sanchez Self - patient is the insured Medical (General) History Medical History History ICD Code high blood pressure measles chicken pox bone implants Joint implants/screws Cholesterol Surgical History Surgery Date(Month/Year) right hip surgery 07/2015 Hospitalization History Reason Date(Month/Year) [facility] [place]- Unknown Headache Ede natalie for 5 days same day took off med simvastatin 12/25/22
--- OUTSIDE RECORDS SUMMARY | 2024-11-04 08:57 | XMS_ITS | Encounter Summary ---
Author Name [facility] [place] Organization [facility] [place] Address [address] [place] [address] Care Team Providers Care Information Technology Specialist Name Role Phone YANETH JOE Primary [...] Policy 's Name Patient's Relationship to Policy [facility] (WNR) MEDICARE ADVANTAGE [facility] (WNR) Oct 28, 2019 [id number] TUTU,JE JONAS PATIENT Selected Encounter This section includes the information on record at [place] for the Encounter. Date/Time Encounter Type Encounter Description Reason Provider Source Nov 02, 2024 02:00 PM [facility] ICD-10-CM F43.10 Post-traumatic stress disorder, unspecified MARK,ZEUS IE IHE Encounter Template Text not used by [place] Assessments - Encounter Diagnoses This section includes the primary and secondary diagnoses documented for the Encounter. Date/Time Primary/Secondary Diagnosis Diagnosis Name Provider Source Nov 02, 2024 04:05 PM PRIMARY Post-traumatic stress disorder, unspecified MARK[facility]IN [facility] Plan of Treatment: Future Appointments (+ 6 months) and Future Tests (+/- 45 days) The Plan of Treatment section includes future care activities for the patient from all [place] [facility]. This section includes future appointments and future orders which are active, pending or scheduled. Future Appointments This section includes appointments that were scheduled to occur 6 months from the date of the Encounter, up to a maximum of 20 appointments. The data comes from all [place] treatment facilities. Appointment Date/Time Appointment Type Appointme nt Facility Name Nov 23, 2024 02:00 PM AMBULATORY - PSYCHIATRY [facility] [place] [facility] Dec 29, 2024 08:30 AM AMBULATORY - NONE [facility] [place] [facility] Jan 12, 2025 07:30 AM AMBULATORY - NONE [facility] [place] [facility] March 09, 2025 08:30 AM AMBULATORY - MEDICINE [facility] [place] [facility] Social History: Smoking Status (Most [...] took place. Date/Time Current Smoking Status Comment [facility] it March 09, 2024 09:00 AM VA-TOBACCO FORMER USER [facility] [place] [facility] Tobacco Use History This section includes a history of the smoking, or tobacco-related health factors, that were collected on or before the date of the Encounter. The data comes from the [place] facility where the Encounter took place. Date/Time Smoking Status/Tobac co Use Comment Facility March 09, 2024 09:00 AM VA-TOBACCO QUIT 15 YRS OR MORE [facility] [place] [facility] March 18, 2023 02:30 PM VA-TOBACCO FORMER USER [facility] [place] [facility] March 18, 2023 02:30 PM VA-TOBACCO QUIT 15 YRS OR MORE [facility] [place] [facility] Jan 11, 2022 08:30 AM VA-TOBACCO FORMER USER [facility] [place] [facility] Jan 11, 2022 08:30 AM VA-TOBACCO QUIT 15 YRS OR MORE [facility] [place] [facility] Dec 26, 2020 09:00 AM VA-TOBACCO FORMER USER [facility] [place] [facility] Dec 26, 2020 09:00 AM VA-TOBACCO QUIT 15 YRS OR [facility] Dec 08, 2019 09:16 AM VA-TOBACCO FORMER USER [facility] [place] [facility] Dec 08, 2019 09:16 AM VA-TOBACCO QUIT 15 YRS OR [facility] Oct 14, 2018 02:56 PM VA-TOBACCO FORMER USER [facility] Oct 14, 2018 02:56 PM VA-TOBACCO QUIT 15 YRS OR MORE [facility] Dec 12, 2017 09:20 AM [...] Feb 09, 2019 ADVANCE DIRECTIVE [facility] Feb 08, 2019 ADVANCE DIRECTIVE SAMM BRINK V [facility] Encounter Notes: All associated encounter notes This section contains the clinical notes associated to the Encounter. Date/Time Encounter Note(s) Provider Source Nov 02, 2024 02:00 PM SOCIAL WORK GROUP COUNSELING NOTE: LOCAL TITLE: SOCIAL WORK GROUP NOTE STANDARD TITLE: SOCIAL WORK GROUP COUNSELING NOTE DATE OF NOTE: NOV 02, 2024@14:00 ENTRY DATE: NOV 02, 2024@15:48:44 AUTHOR: MANDY FLORES COSIGNER: URGENCY: STATUS: COMPLETED [...] [ ] managing PTSD symptoms [x ] [place] specific resources [ ] anger management [ x ] aging related issues including memory/cognitive decline. Members provided one another with support and feedback. Next group will be 11/23/24 reported he was doing well. No new problems or concerns reported. /gio/ MANDY FLORES [facility] SK[facility] COUNTER Signed: 11/02/2024 16:06 MANDY FLORES [facility]
--- OUTSIDE RECORDS SUMMARY | 2024-11-04 08:58 | XMS_ITS | Patient Health Record ---
Author Organization [facility] Address [address] [place] [address] Care Team Providers Care Ocean Freight Forwarder Name Role Phone Wenceslao MALHOTRA, Kleber Primary Care Provider Michael Daily [phone] ALLERGIES Allergen (clinical drug ingredient) Drug/Non Drug [...] malignant neoplasm of colon (Z12.11) Active confirmed 113788585 Problem Preprocedural examination (Z01.818) Active confirmed [id number] Problem Alcohol-induced acute pancreatitis, 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) Active confirmed [id number] Problem Elevated liver function tests (R79.89) Active confirmed [id number] PLAN OF TREATMENT Pending Test Test Name Order Date LIVER PROFILE 02/28/2023 US ABD 02/28/2023 Future Test Test Name Order Date COLONOSCOPY 11/10/2020 Insurance Providers Payer Name Payer Address Payer Phone Subscriber Number Group Number Insured Name Patient Relationship to Insured Coverage Start Date Coverage End Date [facility] [address] [address] [place] [address] [id number] HIGINIO CAM Self - patient is the insured MEDICAL (GENERAL) HISTORY Medical History History ICD Code Denies RI,DM,CVA,Lung disease,renal dise ase HTN Hyperlipidemia Neg. screening colonoscopy in 08/2010 an d in 10/2020 Pancreatitis in 2018 due to EtOH Diverticulosis Aseptic necrosis R/hip Surgical History Surgery Date(Month/Year) Right hip replacement 08/2005 Tonsillectomy
== END 2024-11-04 09:12 | disposition home or self-care (01) ==
PROVIDERS: PCP Internal Medicine; Visit Provider Internal Medicine
DX: I10 Essential (primary) hypertension (principal)

== ENCOUNTER → 2024-11-04 08:50 | Outpatient (BNVA) | payer MEDICARE, SELFPAY | PROVIDERS: PCP Internal Medicine; Visit Provider Internal Medicine | DX: I10 Essential (primary) hypertension (principal); R97.20 Elevated prostate specific antigen [PSA] | CPT/HCPCS: 96127; 99212 ==

== ENCOUNTER 2024-11-26 11:30 | Outpatient (AMB) | payer OTHER, SELFPAY ==
--- NOTE | 2024-11-26 11:32 | MHC.OFFVIS ---
Intake Visit Reasons: elevated PSA Intake Note: Patient is present for ELEVATED PSA Urology Medication:NONE Antibiotic Allergy:NONE Blood Thinner:NONE Entertainment Production Professional Required: No Allergies bee pollen [BEE STINGS] Allergy (Mild, Verified 11/26/24 11:33) SWELLING SHELLFISH Allergy (Severe, Uncoded 11/26/24 11:33) SWELLING HPI Comments Details: Lynette is a pleasant male. He is a patient of Dr. Yarbrouhg. He is seen for the following urologic conditions - lower urinary tract symptoms Previous laser prostatectomy Had been doing well however PSA has jumped over past 2 years Recommend repeat PSA and prostate MRI in 2 months Lower urinary tract symptoms Prior laser prostatectomy 2018 Satisfied with current urinary parameters - Effective stream, good bladder emptying, does have nocturia 1-2 times but drinks liquid until 21:00 - cut back on tea PSA - 2019 2.6, 03/17 2.8, 05/18 3.2, 03/19 3.8, 11/21 7.3 Therapeutic plan continue with yearly follow-up and PSA PFSH Medical History Hx of pancreatitis Hyperlipidemia HTN (hypertension) Surgical History Hx of colonoscopy History of arthroplasty of right hip History of rectal polypectomy History of tonsillectomy Family History Father Diabetes Hypertension Prostate cancer Mother Alzheimers disease Social History Housing: House Are you a primary nurse healthcare manager to a significant other at home: No Do you presently have visiting nurse or other home services: No Alcohol intake: former Year quit: 2018 Patient Tobacco Use Status: Former Tobacco user Tobacco use type: Cigarette e-Cigarette/Vaping Use: Never Used Second Hand Smoke Exposure: No service: No Current occupational status: retired Cognitive needs: No Hearing needs: Yes (hearing aides) Vision needs: Yes (glasses) Review of Systems Const Denies chills and Denies fever(s) Card Reports no additional complaints and Denies syncope Resp Denies cough GI Denies abdominal pain and Denies heartburn Reports as per HPI and Denies change in libido Neuro Denies syncope Psych Denies change in libido Endo Denies change in libido Physical Exam Const General: cooperative, healthy appearing, comfortable and no acute distress Orientation/consciousness: patient oriented x3 HEENT Face and sinus: Yes normal facial exam Mouth: moist mucous membranes Neck Neck: Yes normal visual inspection, Yes full ROM and Yes trachea midline Chest Chest palpation & inspection: normal inspection of the chest Resp Effort & Inspection: normal respiratory effort, able to speak in complete sentences and no respiratory distress GI Inspection: Yes normal to inspection Back/Spine/Pelvis Cervical Spine: normal cervical lordosis Thoracic/Lumbar Spine: thoracic and lumbar spine normal to inspection Skin General skin exam: no rashes or lesions noted Neuro General: patient oriented x3, gait normal, tone normal and moves all extremities Extrem General: Yes normal to inspection and Yes capillary refill normal Assessment & Plan Assessment & Plan (1) Elevated PSA: Code(s): R97.20 - Elevated prostate specific antigen [PSA] Category: Medical Plan Two month follow-up prostate MRI and PSA Orders: Orders MR Prostate wo/w con 2 Months R97.20 - Elevated prostate specific antigen [PSA] PSA,Total (Free>4and<10) 2 Months E11.69 - Type 2 diabetes mellitus with other specified complication, N52.1 - Erectile dysfunction due to diseases classified elsewhere, R97.20 - Elevated prostate specific antigen [PSA] Patient Instructions: Imaging studies, laboratory and physical exam results were discussed and reviewed in detail. No major barriers to patient understanding were identified. An opportunity to ask questions regarding the treatment plan was provided. All questions were answered. The patient expressed understanding and agreement with the above treatment plan. The patient is aware they should contact our office by phone for worsening of their current condition or the appearance of new urologic symptoms. Compliance is encouraged with any medications and followup testing that is ordered. It is a privilege to participate in the urologic care of your patient. If you have any questions or concerns regarding treatment for the above conditions, or other urologic issues, please do not hesitate to contact me. The office telephone contact is [phone]. This note is constructed using voice recognition software. While every effort has been made to ensure accuracy appliance counselor errors may have been included. Yours sincerely, Dr Matthias Gray MD, [facility] - Urology Providers of Expert, Compassionate Care for the Genitourinary System Coding Level of Care Code Est Pt Level 4 (67955) Diagnoses Elevated PSA R97.20
--- OUTSIDE RECORDS SUMMARY | 2024-11-26 15:28 | XMS_ITS ---
Author Organization [facility] Address [address] [place] [address] Care Team Providers Care Sales Agent Food Vending Service Name Role Phone Kleber Billy MD Primary Care Provider Unavaila Osman Velazco Unavailable [phone] Allergies Allergen (clinical drug ingredient) Drug/Non Drug [...] Ordered Date Performed Result Body Sit e 98835-XWLIDFK NAIL, 6 OR MORE 05/05/2024 N/A 45884-XWEY SKIN LESIONS, OVER 4 05/05/2024 N/A Encounters Encounter Location Date Provider Diagnosis [facility] [address] [place] [address] 05/05/2024 Osman Blanc Atherosclerosis of [place] ir[place] artery of both lower extremities, with unspecified presence of clinical manifestation I70.203 ; Tinea unguium B35.1 ; Pain in right toe(s) M79.674 ; Pain in left toe(s) M79.675 and Xerosis of skin L85.3 Assessments Encounter Date Diagnosis (ICD Code) Assessment Notes Treatment Notes Treatment Clinical Notes Section Notes 05/05/2024 Atherosclerosis of [place] artery of both lower extremities, with unspecified presence of clinical manifestation (ICD-10 - I70.203) 05/05/2024 Tinea unguium (ICD-10 - B35.1) 05/05/2024 Pain in right toe(s) (ICD-10 - M79.674) 05/05/2024 Pain in left toe(s) (ICD-10 - M79.675) 05/05/2024 Xerosis of skin (ICD-10 - L85.3) Plan Of Treatment Pending Test Test Name Order Date 14729-VWDNCUE NAIL, 6 OR MORE 05/05/2024 47905-TWIQ SKIN LESIONS, OVER 4 05/05/20 24 Next Appt Details Follow Up: prn, Reason: Provider Name:Osman Blanc , 02/02/2025 09:00:00 AM, [address] [place] [address], [phone], Procedure Notes * Category Sub-Category Detail Notes [...] as necessary. Patient chooses, no pharmaceutical tx (51198) Keratoma Treatment Parring or Cutting o f Benign Hyperkeratotic Lesion(s) 36328 ( >4 Lesions) - The Benign hyperkeratotic lesions, as described above were pared, and/or cut utilizing a sterile #15 blade, tissue nippers, and/or dremel, Q8 Progress Notes * Lynette SANCHEZ JrDOB:[birth year] (74 yo M)Acc No.[id number]:05/05/2024 Progress Note Patient:?Lynette SANCHEZ Jr Provider:?Osman Blanc DPM :1950???Age:73 Y???Sex:Male Praveen e:05/05/2024 Address:[address] [place] [address] [phone] Pcp:Kleber Billy MD Subjective: * Chief Complaints: [...] hip surgery 07/2015 * Hospitalization/Major Diagno stic Procedure:?[facility]- Unknown Headache Migraine for [...] Assessment: 1.?Tinea unguium - B35.1???2 .?Atherosclerosis of [place] ir[place] artery of both lower extremities, with unspecified presence of clinical manifestation - I70.203 (Primary)???3.?Pain in right toe(s) - M79.674???4.?Pain in left toe(s) - M79.675 ??5.?Xerosis of skin - L85.3???Specify :Acute problem, Stable (1=3),Response to treatment - Improvement??? Plan: * Treatment: 2.?Tinea unguium?Procedure: 46154-EXTPPVG NAIL, 6 OR MORE * Procedures:?Debride Nail 6-10:?Nail debridement?Nail debridement performed extensively to reduce/remove overall nail length, girth, thickness, subungual debris, and necrotic tissue, by manual and electrical means through the use of a nail nipper and/or dremel, to more viable healthy nail plate or bed tissue 1-5. Silver nitrate used for any petechial bleeding as necessary. Patient chooses, no pharmaceutical tx (92117).?Keratoma Treatment:?Parring or Cutting of Benign Hyperkeratotic Lesion(s)?70724 ( >4 Lesions) - The Benign hyperkeratotic lesions, as described above were pared, and/or cut utilizing a sterile #15 blade, tissue nippers, and/or dremel, Q8.? * Procedure Codes:?45576 DEBRI DE NAIL, 6 OR MORE, Modifiers: XS 68678 TRIM SKIN LESIONS, OVER 4, Modifiers: XS [...] Blanc DPM Date:?2023 Generated for Ally gomez/Leann/Maryjane on:?11/26/2024 03:28 PM EST History and Physical Notes * HPI [...]
--- OUTSIDE RECORDS SUMMARY | 2024-11-26 15:28 | XMS_ITS | Patient Health Record ---
Author Organization [facility] Address [address] [facility] [place] [address] Care Team Providers Care Assistant Cook Name Role Phone Kleber Billy MD Primary Care Provider Osman Rowell Unavailable [phone] Allergies Allergen (clinical drug ingredient) Drug/Non Drug [...] W/U Status Risk Notes Problem Atherosclerosis of [place] arteries of the extremities ([id number]) Atherosclerosis of [place] artery of both lower extremities, with unspecified presence of clinical manifestation (I70.203) Active confirmed Vital Signs Blood pressure diastolic 80 mm Hg 07/28/2024 Height 6ft 2in in 07/28/2024 Blood pressure systolic 120 mm Hg 07/28/2024 Weight 186 lbs 07/28/2024 BMI 23.88 kg/m2 07/28/2024 Procedures Procedure Date Ordered Date Performed Result Body Sit e 47153-PXXOMHD NAIL, 6 OR MORE 01/31/2024 N/A 25543-KPNR SKIN LESIONS, OVER 4 01/31/2024 N/A 12948-GNJBQMS NAIL, 6 OR MORE 05/05/2024 N/A 21373-IEZM SKIN LESIONS, OVER 4 05/05/2024 N/A 33149-SBBJHCD NAIL, 6 OR MORE 07/28/2024 N/A 41825-MECJ SKIN LESIONS, OVER 4 07/28/2024 N/A 12695-XVTPSUW NAIL, 6 OR MORE 11/03/2024 N/A 68636-BBNK SKIN LESIONS, OVER 4 11/03/2024 N/A Encounters Encounter Location Date Provider Diagnosis [address] [address] 01/31/2024 Osman Blanc Atherosclerosis of [place] artery of both lower extremities, with unspecified presence of clinical manifestation I70.203 ; Tinea unguium B35.1 ; Pain in right toe(s) M79.674 ; Pain in left toe(s) M79.675 and Xerosis of skin L85.[address] [address] 05/05/2024 Osman Blanc Atherosclerosis of [place] artery of both lower extremities, with unspecified presence of clinical manifestation I70.203 ; Tinea unguium B35.1 ; Pain in right toe(s) M79.674 ; Pain in left toe(s) M79.675 and Xerosis of skin L85.[address] [address] 07/28/2024 Osmansergio Blanc Atherosclerosis of [place] artery of both lower extremities, with unspecified presence of clinical manifestation I70.203 ; Tinea unguium B35.1 ; Pain in right toe(s) M79.674 and Pain in left toe(s) M79.675 [facility] [address] [address] 11/03/2024 Osman Blanc Atherosclerosis of [place] artery of both lower extremities, with unspecified presence of clinical manifestation I70.203 ; Tinea unguium B35.1 ; Pain in right toe(s) M79.674 and Pain in left toe(s) M79.675 Assessments Encounter Date Diagnosis (ICD Code) Assessment Notes Treatment Notes Treatment Clinical Notes Section Notes 01/31/2024 Tinea unguium (ICD-10 - B35.1) 01/31/2024 Atherosclerosis of [place] artery of both lower extremities, with unspecified presence of clinical manifestation (ICD-10 - I70.203) 05/05/2024 Tinea unguium (ICD-10 - B35.1) 05/05/2024 Atherosclerosis of [place] artery of both lower extremities, with unspecified presence of clinical manifestation (ICD-10 - I70.203) 07/28/2024 Tinea unguium (ICD-10 - B35.1) 07/28/2024 Atherosclerosis of [place] artery of both lower extremities, with unspecified presence of clinical manifestation (ICD-10 - I70.203) 11/03/2024 Tinea unguium (ICD-10 - B35.1) 11/03/2024 Atherosclerosis of [place] artery of both lower extremities, with unspecified [...] Treatment Pending Test Test Name Order Date 86187-KZZNYXJ NAIL, 6 OR MORE 04/10/2022 92567-SDGDEPU NAIL, 6 OR MORE 07/10/2022 12851-DGEPKZF NAIL, 6 OR MORE 10/12/2022 12487-GCTDZHP NAIL, 6 OR MORE 01/25/2023 56329-JNUFSXM NAIL, 6 OR MORE 04/23/2023 55258-ODKTQQE NAIL, 6 OR MORE 07/26/2023 02738-XVWZKMO NAIL, 6 OR MORE 11/01/2023 98151-DFSSQIX NAIL, 6 OR MORE 01/31/2024 53026-SRABTYH NAIL, 6 OR MORE 05/05/2024 01943-SRHVHRD NAIL, 6 OR MORE 07/28/2024 70607-VCHHMMP NAIL, 6 OR MORE 11/03/2024 47343-COEJ SKIN LESIONS, OVER 4 11/03/19 25 06504-KTZX SKIN LESIONS, OVER 4 07/28/20 24 75187-LZFA SKIN LESIONS, OVER 4 05/05/20 24 40369-RDOO SKIN LESIONS, OVER 4 01/31/20 24 01114-LZIY SKIN LESIONS, OVER 4 11/01/19 24 23724-CXFI SKIN LESIONS, OVER 4 07/26/20 23 57486-GWAJ SKIN LESIONS, OVER 4 04/23/20 23 45889-KAVB SKIN LESIONS, OVER 4 01/26/20 23 05890-JTKV SKIN LESIONS, OVER 4 10/12/20 22 25772-XZZI SKIN LESIONS, OVER 4 07/10/20 22 89029-NVNF SKIN LESIONS, OVER 4 04/10/20 22 Next Appt Details Provider Name:Osman Blanc , 02/02/2025 09:00:00 AM, [address] [place] [address], [place], [address], Insurance Providers Payer Name Payer Address Payer Phone Subscriber Number Group Number Insured Name Patient Relationship to Insured Coverage Start Date Coverage End Date [employer] Medicare [id number] [address] [address] [place] [address] [id number] Lynette Sanchez Self - patient is the insured Medical (General) History Medical History History ICD Code high blood pressure measles chicken pox bone implants Joint implants/screws Cholesterol Surgical History Surgery Date(Month/Year) right hip surgery 07/2015 Hospitalization History Reason Date(Month/Year) [facility]- Unknown Headache Ede natalie for 5 days same day took off med simvastatin 12/25/22
--- OUTSIDE RECORDS SUMMARY | 2024-11-26 15:28 | XMS_ITS ---
Author Organization [facility] Lucie agrawal [place] Address [address] [place] [address] Care Team Providers Care Brake Reliner Name Role Phone Kleber Billy MD Primary Care Provider Unavaila Osman Velazco Unavailable [phone] Allergies Allergen (clinical drug ingredient) Drug/Non Drug [...] Ordered Date Performed Result Body Sit e 18454-SRGLDQL NAIL, 6 OR MORE 07/28/2024 N/A 17004-IDHO SKIN LESIONS, OVER 4 07/28/2024 N/A Encounters Encounter [facility] Date [facility] [address] [place] [address] 07/28/2024 Osman Blanc Atherosclerosis of [place] artery of both lower extremities, with unspecified presence of clinical manifestation I70.203 ; Tinea unguium B35.1 ; Pain in right toe(s) M79.674 and Pain in left toe(s) M79.675 Assessments Encounter Date Diagnosis (ICD Code) Assessment Notes Treatment Notes Treatment Clinical Notes Section Notes 07/28/2024 Atherosclerosis of [place] artery of both lower extremities, with unspecified presence of clinical manifestation (ICD-10 - I70.203) 07/28/2024 Tinea unguium (ICD-10 - B35.1) 07/28/2024 Pain in right toe(s) (ICD-10 - M79.674) 07/28/2024 Pain in left toe(s) (ICD-10 - M79.675) Plan Of Treatment Pending Test Test Name Order Date 33471-IGCQEUY NAIL, 6 OR MORE 07/28/2024 20001-PFED SKIN LESIONS, OVER 4 07/28/20 24 Next Appt Details Follow Up: prn, Reason: Provider Name:Osman Blanc , 02/02/2025 09:00:00 AM, [address] [place] [address], [place], [address], Procedure Notes * Category Sub-Category Detail Notes Debride Nail 6-10 Nail debridement Performance o f this nail treatment by a nonprofessional would put this patients foot and overall health at risk. Therefore, nail debridement was performed extensively to reduce/remove overall nail length, girth, thickness, subungual debris, and necrotic tissue, by manual and/or electrical means through the use of a nail nipper and/or dremel-type steel grinder, to a more viable healthy nail plate or bed tissue 6-10. Silver nitrate used for any petechial bleeding as necessary. Definitive antifungal treatment options have been reviewed and discussed with the patient. The patient chooses, no pharmaceutical tx - 67395 Keratoma Treatment Parring or Cutting o f Benign Hyperkeratotic Lesion(s) (-57) More than 4 Lesions - The Benign hyperkeratotic lesions, as described above were pared, and/or cut utilizing a sterile 15 blade, tissue nippers, and/or dremel - 61491 , Q8 Progress Notes * Lynette SANCHEZ JrDOB:[birth year] (74 yo M)Acc No.[id number]:07/28/2024 Progress Note Patient:Lynette Guzman Provider:?Osman Blanc DPM :1950???Age:74 Y???Sex:Male Praveen e:07/28/2024 Address:[facility] [place], [id number] Pcp:Kleber Billy MD Subjective: * Chief Complaints: [...] hip surgery 07/2015 * Hospitalization/Major Diagno stic Procedure:?[facility] [place]- Unknown Headache Migraine for 5 days [...] Assessment: 1.?Tinea unguium - B35.1?2.? Atherosclerosis of [place] artery of both lower extremities, with unspecified presence of clinical manifestation - I70.203 (Primary)?3.?Pain in right toe(s) - M79.674?4.?Pain in left toe(s) - M79.675? Plan: * Treatment: 2.?Tinea unguium?Procedure: 27395-BODHKTB NAIL, 6 OR MORE * Procedures:?Debride Nail 6-10:?Nail debridement?Performance of this nail treatment by a nonprofessional would put this patients foot and overall health at risk. Therefore, nail debridement was performed extensively to reduce/remove overall nail length, girth, thickness, subungual debris, and necrotic tissue, by manual and/or electrical means through the use of a nail nipper and/or dremel-type steel grinder, to a more viable healthy nail plate or bed tissue 6-10. Silver nitrate used for any petechial bleeding as necessary. Definitive antifungal treatment options have been reviewed and discussed with the patient. The patient chooses, no pharmaceutical tx - 29125.?Keratoma Treatment:?Parring or Cutting of Benign Hyperkeratotic Lesion(s)?(-57) More than 4 Lesions - The Benign hyperkeratotic lesions, as described above were pared, and/or cut utilizing a sterile 15 blade, tissue nippers, and/or dremel - 41388 , Q8.? * Procedure Codes:?49199 DEBRI DE NAIL, 6 OR MORE, Modifiers: XS 39242 TRIM SKIN LESIONS, OVER 4, Modifiers: XS [...]
--- OUTSIDE RECORDS SUMMARY | 2024-11-26 15:29 | XMS_ITS | Patient Health Record ---
Author Organization [facility] Address [address] [place] [address] Care Team Providers Care Ironer Sock Name Role Phone Wenceslao MALHOTRA, Kleber Primary Care Provider Michael Daily [phone] ALLERGIES Allergen (clinical drug ingredient) Drug/Non Drug [...] malignant neoplasm of colon (Z12.11) Active confirmed 722829767 Problem Preprocedural examination (Z01.818) Active confirmed [id number] Problem Alcohol-induced acute pancreatitis, 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) Active confirmed 841907254 Problem Elevated liver function tests (R79.89) Active confirmed 894068208 PLAN OF TREATMENT Pending Test Test Name Order Date LIVER PROFILE 02/28/2023 US ABD 02/28/2023 Future Test Test Name Order Date COLONOSCOPY 11/10/2020 Insurance Providers Payer Name Payer Address Payer Phone Subscriber Number Group Number Insured Name Patient Relationship to Insured Coverage Start Date Coverage End Date [facility] [address] [address] [place] [address] [id number] [employer] Self - patient is the insured MEDICAL (GENERAL) HISTORY Medical History History ICD Code Denies [place],DM,CVA,Lung disease,renal dise ase HTN Hyperlipidemia Neg. screening colonoscopy in 08/2010 an d in 10/2020 Pancreatitis in 2018 due to EtOH Diverticulosis Aseptic necrosis R/hip Surgical History Surgery Date(Month/Year) Right hip replacement 08/2005 Tonsillectomy
--- OUTSIDE RECORDS SUMMARY | 2024-11-26 15:29 | XMS_ITS ---
Author Organization [facility] Address [address] [place] [address] Care Team Providers Care Air Hose Coupler Name Role Phone Kleber Billy MD Primary Care Provider Unavaila Osman Velazco Unavailable [phone] Allergies Allergen (clinical drug ingredient) Drug/Non Drug [...] Ordered Date Performed Result Body Sit e 24444-PISHFHI NAIL, 6 OR MORE 11/03/2024 N/A 50124-WEDD SKIN LESIONS, OVER 4 11/03/2024 N/A Encounters Encounter Location Date Provider Diagnosis [facility] [address] [address] 11/03/2024 Osman Blanc Atherosclerosis of [place] artery of both lower extremities, with unspecified presence of clinical manifestation I70.203 ; Tinea unguium B35.1 ; Pain in right toe(s) M79.674 and Pain in left toe(s) M79.675 Assessments Encounter Date Diagnosis (ICD Code) Assessment Notes Treatment Notes Treatment Clinical Notes Section Notes 11/03/2024 Atherosclerosis of [place] artery of both lower extremities, with unspecified presence of clinical manifestation (ICD-10 - I70.203) 11/03/2024 Tinea unguium (ICD-10 - B35.1) 11/03/2024 Pain in right toe(s) (ICD-10 - M79.674) 11/03/2024 Pain in left toe(s) (ICD-10 - M79.675) Plan Of Treatment Pending Test Test Name Order Date 21137-OVSOKBZ NAIL, 6 OR MORE 11/03/2024 35491-NFGM SKIN LESIONS, OVER 4 11/03/19 25 Next Appt Details Follow Up: prn, Reason: Provider Name:Osman Blanc , 02/02/2025 09:00:00 AM, [address] [place] [address], [place], [address], Procedure Notes * Category Sub-Category Detail Notes [...] use of a nail nipper and/or dremel-type concrete grinder operator, to a more viable healthy nail plate [...] to maintain effectiveness in symptomatic relief - 47512 Keratoma Treatment Parring or Cutting o f [...] instrumentation by the physician of record - 89477, Q8 Progress Notes * Lynette SANCHEZ JrDOB:[birth year] (74 yo M)Acc No.[id number]:11/03/2024 Progress Note Patient:?Lynette SANCHEZ Jr Provider:?Osman Blanc DPM :1950???Age:74 Y???Sex:Male Praveen e:11/03/2024 Address:[facility] [address] [place] Pcp:Kleber Billy MD Subjective: * Chief Complaints: [...] 07/2015 * Hospitalization/Major Diagno stic Procedure:[place] Headache Migraine for 5 days [...] Assessment: 1.?Tinea unguium - B35.1???2 .?Atherosclerosis of [place] artery of both lower extremities, with unspecified presence of clinical manifestation - I70.203 (Primary)???3.?Pain in right toe(s) - M79.674???4.?Pain in left toe(s) - M79.675??? Plan: * Treatment: 2.?Tinea unguium?Procedure: 54354-NEEDWMR NAIL, 6 OR MORE * Procedures:?Debride Nail [...] use of a nail nipper and/or dremel-type concrete grinder operator, to a more viable healthy nail plate [...] to maintain effectiveness in symptomatic relief - 27964.?Keratoma Treatment:?Parring or Cutting of Benign Hyperkeratotic Lesion(s)?(-57) [...] instrumentation by the physician of record - 33061, Q8.? * Procedure Codes:?98918 DEBRI DE NAIL, 6 OR MORE, Modifiers: XS 29527 TRIM SKIN LESIONS, OVER 4, Modifiers: XS , Q8 * Follow Up:?prn * Images: * Sign off status: Completed true * Provider:?Osman Blanc DPM Date:?2024 Generated for Ally gomez/Leann/Maryjane on:?11/26/2024 03:29 PM EST History and Physical Notes * [...]
--- OUTSIDE RECORDS SUMMARY | 2024-11-26 15:29 | XMS_ITS | Continuity of Care Document ---
Author Name [facility] Organization [facility] Care Team Providers Care Psychological Aide Name Role Phone [facility] Unavailable Unavailable Problems Combined list of problems [...] reviewedOct 2022 Entered By: TONI WIGGINS Comment: [facility]iviewed [facility] [place] [...] DHALIWAL Comment: [facility] chest CT [facility] [place] [facility] Exposure to potentially hazardous substance ([facility] [id number]) Active Condition March 27 Entered By: ALIS JACOBO Comment: Entered automatically through JULIET Problem List documentation program [facility] [place] [facility] Hyperlipidemia Active Condition [facility] [place] [facility] Hypertension Active Condition [facility] [place] [facility] Prostate Specific Antigen Above Reference Range (SCT [id number]) Active Condition Sep 08, 2024 Entered By: YANETH JOE Comment: 8.8, referred back to Dr. Matthias Gray, +family h/o prostate ca- father, +AO exposure [facility] [place] [facility] Diagnosis: ICD-10-CM F43.10 Post-traumatic stress disorder, unspecified Active Diagnosis [facility] [place] [facility] Diagnosis: ICD-10-CM F43.12 Post-traumatic stress disorder, chronic Active Diagnosis [facility] [place] [facility] Diagnosis: ICD-10-CM R97.20 Elevated prostate specific antigen [PSA] Active Diagnosis [facility] [place] [facility] Diagnosis: ICD-10-CM K03.6 Deposits [accretions] on teeth Active Diagnosis [facility] [place] [facility] Diagnosis: ICD-10-CM Z46.1 Encounter for fitting and adjustment of hearing aid Active Diagnosis [facility] [place] [facility] Diagnosis: ICD-10-CM F10.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, in remission Active Diagnosis [facility] [place] [facility] Diagnosis: ICD-10-CM 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, unspecified site Active Diagnosis [facility] [place] [facility] Diagnosis: ICD-10-CM K08.9 Disorder of teeth and supporting structures, unspecified Active Diagnosis [facility] [place] [facility] Diagnosis: ICD-10-CM Z01.30 Encounter for exam of blood pressure w/o abnormal findings Active Diagnosis [facility] [place] [facility] Medications Combined list of outpatient medications from [...] WITH GRAPEFRU IT JUICE ORAL ACTIVE 12/17/2024 [id number] MI DODD JAWED 2023 90 [facility] [place] AMLODIPINE BESYLATE 5MG TAB TAKE ONE TABLET BY MOUTH ONCE DAILY FOR BLOOD PRESSURE /HEART, DO NOT TAKE WITH GRAPEFRU IT JUICE ORAL DISCONT INUED 12/25/2023 [id number] MI DODD JAWED 2022 90 [facility] [place] BENAZEPRIL HCL 20MG TAB TAKE ONE TABLET BY MOUTH EVERY MORNING ORAL ACTIVE PETROFF,S NNE 2017 [facility] [place] EPINEPHRINE (EQV-EPI PEN) 0.3ML/0.3ML INJ,SOLN INJECT INTRAMUS CULARLY INTRAM USCULA R ACTIVE PETROFF,S UANNE 2017 [facility] [place] EPINEPHRINE (EQV-EPI-PE N) 0.3MG/0.3ML INJECTOR INJECT DIRECTED INTRAMUS CULARLY ONCE DAILY NEEDED FOR LIFE THREATEN ING ALLERGIC REACTION INTRAM USCULA R ACTIVE 03/10/2025 [id number] Clay JOE 2023 2 [facility] [place] FEXOFENADIN E HCL 180MG TAB TAKE ONE TABLET BY MOUTH ONCE DAILY ORAL ACTIVE LI ZACARIAS 2020 [facility] [place] PRAZOSIN HCL 2MG CAP TAKE ONE CAPSULE BY MOUTH AT BEDTIME FOR NIGHTMAR ES ORAL ACTIVE 09/09/2025 [id number] TONI WIGGINS 2024 90 [facility] [place] PRAZOSIN HCL 2MG CAP TAKE ONE CAPSULE BY MOUTH AT BEDTIME FOR NIGHTMAR ES ORAL DISCONT INUED 03/27/2025 [id number] TONI WIGGINS 2023 90 [facility] [place] PRAZOSIN HCL 2MG CAP TAKE ONE CAPSULE BY MOUTH AT BEDTIME ORAL DISCONT INUED 10/24/2024 [id number] 4 TONI WIGGINS 2022 90 [facility] [place] ROSUVASTATI N CA 20MG TAB TAKE ONE TABLET BY MOUTH ONCE DAILY FOR CHOLESTE ROL ORAL ACTIVE 03/10/2025 [id number] 4 MAIClay MORALES TITO 2023 90 [facility] [place] ROSUVASTATI N CA 20MG TAB TAKE ONE TABLET BY MOUTH ONCE DAILY FOR CHOLESTE ROL ORAL DISCONT INUED 03/18/2024 [id number] 4 PIERCEFERNANDOMI AMMED JAWED 2022 90 [facility] [place] SODIUM FLUORIDE 1.1% TOOTHPASTE BRUSH SMALL AMOUNT TO TEETH TWICE DAILY FOR TOOTH DECAY PREVENTI ON DENTAL ACTIVE 10/01/2025 [id number] CARL[place]TH 2023 204 [facility] [place] SODIUM FLUORIDE 1.1% TOOTHPASTE BRUSH SMALL AMOUNT TO TEETH TWICE DAILY FOR TOOTH DECAY PREVENTI ON DENTAL 08/09/2024 [id number] [facility] [place] 2022 204 [facility] [place] Allergies, Adverse Reactions, [...] adverse reactions to food (finding) active 8 [facility] [place] [facility] Immunizations Combined list of available immunizations from the Department of Defense and Veterans Affairs facilities. Immunization Series Date Given Administered By Site Reaction Lot Number CVX Code Drug Compliance Director Status Comments Source INFLUENZA, UNSPECIFIED FORMULATION 2023 [...] [facility] PNEUMOCOCCAL CONJUGATE PCV20, POLYSACCHARID E [id number] CONJUGATE, ADJUVANT, PF 2021 216 complet ed [facility] COVID-19 (MODERNA), MRNA, LNP-S, PF, 100 MCG/0.5ML DOSE OR 50 MCG/0.25ML DOSE 3 2021 207 complet ed MOD; [id number]; 2 [facility] [place] COVID-19 (MODERNA), MRNA, LNP-S, PF, 100 MCG/0.5 ML DOSE 3 2020 207 complet ed [id number] 09/09/21 @ 1915 [facility] [place] [facility] INFLUENZA, UNSPECIFIED FORMULATION 2020 88 complet ed [facility] COVID-19 (MODERNA), MRNA, LNP-S, PF, 100 MCG/0.5 ML DOSE 2 2020 207 complet ed MOD; [id number]; 1 [facility] [place] [facility] COVID-19 (MODERNA), MRNA, LNP-S, PF, 100 MCG/0.5 ML DOSE 1 2020 207 complet ed MOD; [id number]; 1 [facility] [place] INFLUENZA, INJECTABLE, QUADRIVALENT, PRESERVATIVE FREE 2019 150 complet ed [facility] [place] INFLUENZA, TRIVALENT, ADJUVANTED 2018 [...] 2016 141 complet ed IIV4-HD 65+ Lot: [id number] [facility] [place] INFLUENZA, [...] Reference Range Date Interpretation Specimen Comments Source BASIC METABOLIC PANEL (non-fast ing) UREA NITROGEN [MASS/VOLUM E] IN SERUM OR PLASMA 16 mg/dL 7 - 25 08/31 Specimen Type: SERUM No comment entered. Ordering Provider: KARTHIKEYAN JOE Report Released Date/Time: March 09, 2024 09:50 AM Reporting Lab: [facility] [place] [facility] [address] [facility] [address] Performing Lab: [facility] [place] [facility] [address] [facility] [address] [facility] [place] [facility] BASIC METABOLIC PANEL (non-fast ing) GLUCOSE [MASS/VOLUM E] IN SERUM OR PLASMA 106 mg/dL 65 - 100 08/31 H Specimen Type: SERUM No comment entered. Ordering Provider: KARTHIKEYAN JOE Report Released Date/Time: March 09, 2024 09:50 AM Reporting Lab: [facility] [place] [facility] [address] [facility] [address] Performing Lab: [facility] [place] [facility] [address] [facility] [address] [facility] [place] [facility] BASIC METABOLIC PANEL (non-fast ing) SODIUM [MOLES/VOLU ME] IN SERUM OR PLASMA 139 mmol/L 135 - 145 08/31 Specimen Type: SERUM No comment entered. Ordering Provider: KARTHIKEYAN JOE Report Released Date/Time: March 09, 2024 09:50 AM Reporting Lab: [facility] [place] [facility] [address] [facility] [address] Performing Lab: [facility] [address] [facility] [address] [facility]N [facility] BASIC METABOLIC PANEL (non-fast ing) POTASSIUM [MOLES/VOLU ME] IN SERUM OR PLASMA 3.9 mmol/L 3.5 - 5.0 08/31 Specimen Type: SERUM No comment entered. Ordering Provider: KARTHIKEYAN JOE Report Released Date/Time: March 09, 2024 09:50 AM Reporting Lab: [facility] [place] [facility] [address] [facility] [address] Performing Lab: [place] [facility] [address] [facility] [address] [facility] BASIC METABOLIC PANEL (non-fast ing) CHLORIDE [MOLES/VOLU ME] IN SERUM OR PLASMA 105 mmol/L 100 - 110 08/31 Specimen Type: SERUM No comment entered. Ordering Provider: KARTHIKEYAN JOE Report Released Date/Time: March 09, 2024 09:50 AM Reporting Lab: [facility] [place] [facility] [address] [facility] [address] Performing Lab: [facility] [place] [facility] [address] [facility] [address] [facility] [place] [facility] BASIC METABOLIC PANEL (non-fast ing) CARBON DIOXIDE, TOTAL [MOLES/VOLU ME] IN SERUM OR PLASMA 25 meq/L 20 - 30 08/31 Specimen Type: SERUM No comment entered. Ordering Provider: KARTHIKEYAN JOE Report Released Date/Time: March 09, 2024 09:50 AM Reporting Lab: [facility] [place] [address] [address] Performing Lab: [facility] [address] [address] [facility] WSN [facility] BASIC METABOLIC PANEL (non-fast ing) CREATININE [MASS/VOLUM E] IN SERUM OR PLASMA 1.17 mg/dL 0.50 - 1.40 08/31 Specimen Type: SERUM No comment entered. Ordering Provider: KARTHIKEYAN JOE Report Released Date/Time: March 09, 2024 09:50 AM Reporting Lab: [facility] [address] Performing Lab: [facility] TRN [facility] [address] [facility] BASIC METABOLIC PANEL (non-fast ing) GLOMERULAR FILTRATION RATE/1.73 SQ M.PREDICTED [VOLUME RATE/AREA] IN SERUM, PLASMA OR BLOOD BY CREATININE- BASED FORMULA (CKD-EPI 2020) 65 mL/min 60 08/31 Specimen Type: SERUM No comment entered. Ordering Provider: KARTHIKEYAN JOE Report Released Date/Time: March 09, 2024 09:50 AM Reporting Lab: [facility] [place] [address] [address] Performing Lab: [place] [facility] [address] [facility]USE [facility] PSA PROSTATE SPECIFIC AG [MASS/VOLUM E] IN SERUM OR PLASMA 8.81 ng/mL 0.00 - 4.00 08/31 H Specimen Type: SERUM No comment entered. Ordering Provider: KARTHIKEYAN JOE Report Released Date/Time: March 09, 2024 09:50 AM Reporting Lab: [facility] W[facility]N [place] [address] Performing Lab: [facility] [address] [facility] [address] [facility] BASIC METABOLIC PANEL (non-fast ing) UREA NITROGEN [MASS/VOLUM E] IN SERUM OR PLASMA 20 mg/dL 7 - 25 03/03 Specimen Type: SERUM No comment entered. Ordering Provider: KARTHIKEYAN JOE Report Released Date/Time: February 28, 2024 10:29 AM Reporting Lab: [address] [address] Performing Lab: [address] [address] [facility] BASIC METABOLIC PANEL (non-fast ing) GLUCOSE [MASS/VOLUM E] IN SERUM OR PLASMA 105 mg/dL 65 - 100 03/03 H Specimen Type: SERUM No comment entered. Ordering Provider: KARTHIKEYAN JOE Report Released Date/Time: February 28, 2024 10:29 AM Reporting Lab: [address] [address] Performing Lab: [address] [address] [facility] BASIC METABOLIC PANEL (non-fast ing) SODIUM [MOLES/VOLU ME] IN SERUM OR PLASMA 143 mmol/L 135 - 145 03/03 Specimen Type: SERUM No comment entered. Ordering Provider: KARTHIKEYAN JOE Report Released Date/Time: February 28, 2024 10:29 AM Reporting Lab: [address] [address] Performing Lab: [address] [address] [facility] BASIC METABOLIC PANEL (non-fast ing) POTASSIUM [MOLES/VOLU ME] IN SERUM OR PLASMA 4.6 mmol/L 3.5 - 5.0 03/03 Specimen Type: SERUM No comment entered. Ordering Provider: KARTHIKEYAN JOE Report Released Date/Time: February 28, 2024 10:29 AM Reporting Lab: [facility] [place] [facility] [address] [facility] [address] Performing Lab: [facility] [address] [facility] [address] [facility] BASIC METABOLIC PANEL (non-fast ing) CHLORIDE [MOLES/VOLU ME] IN SERUM OR PLASMA 107 mmol/L 100 - 110 03/03 Specimen Type: SERUM No comment entered. Ordering Provider: KARTHIKEYAN JOE Report Released Date/Time: February 28, 2024 10:29 AM Reporting Lab: [facility]FLINTRCARRAWAY [facility]ENTERTRN [facility]ITALUSE[facility] [address] [facility] [address] Performing Lab: [facility] TRN [facility]USE[facility] [address] [facility] [address] [facility]INTRDCH [facility]ENTERN [facility]ITALUSE [facility] BASIC METABOLIC PANEL (non-fast ing) CARBON DIOXIDE, TOTAL [MOLES/VOLU ME] IN SERUM OR PLASMA 26 meq/L 20 - 30 03/03 Specimen Type: SERUM No comment entered. Ordering Provider: KARTHIKEYAN JOE Report Released Date/Time: February 28, 2024 10:29 AM Reporting Lab: [facility]FLINTRCARRAWAY [facility]ENTERTRN [facility]ITALUSEV[facility] [address] [facility] [address] Performing Lab: [facility] W[facility]N [facility]ITALUSE[facility] [address] [facility] [address] [facility]INTRDCH [facility]ENTERN [facility]ITALUSE [facility] BASIC METABOLIC PANEL (non-fast ing) CREATININE [MASS/VOLUM E] IN SERUM OR PLASMA 1.16 mg/dL 0.50 - 1.40 03/03 Specimen Type: SERUM No comment entered. Ordering Provider: KARTHIKEYAN JOE Report Released Date/Time: February 28, 2024 10:29 AM Reporting Lab: [facility] TRN [facility]ITAL[facility]ETS [facility] [address] [facility] [address] Performing Lab: [facility] TRN [facility]ITALUSEV[facility] [address] [facility] [address] [facility]INTRDCH [facility]ENTERN [facility]ITALUSE [facility] BASIC METABOLIC PANEL (non-fast ing) GLOMERULAR FILTRATION RATE/1.73 SQ M.PREDICTED [VOLUME RATE/AREA] IN SERUM, PLASMA OR BLOOD BY CREATININE- BASED FORMULA (CKD-EPI 2020) 65 mL/min 60 03/03 Specimen Type: SERUM No comment entered. Ordering Provider: KARTHIKEYAN JOE Report Released Date/Time: February 28, 2024 10:29 AM Reporting Lab: [facility] [place] [facility] [address] [facility] [address] Performing Lab: [facility]ITAL[facility]ETS [facility] [address] [facility] [address] [facility]N [facility]ITAL[facility] LIPID PANEL, NON FASTING CHOLESTEROL [MASS/VOLUM E] IN SERUM OR PLASMA 190 mg/dL 03/03 Specimen Type: SERUM No comment entered. Ordering Provider: KARTHIKEYAN JOE Report Released Date/Time: February 28, 2024 10:29 AM Reporting Lab: [facility] [address] Performing Lab: [facility] TRN [facility]ITALUSEV[facility] [address] [facility] [address] [facility]INTRDCH [facility]ENTERN [facility]ITALUSE [facility] LIPID PANEL, NON FASTING TRIGLYCERID E [MASS/VOLUM E] IN SERUM OR PLASMA 68 mg/dL 0 - 150 03/03 Specimen Type: SERUM No comment entered. Ordering Provider: KARTHIKEYAN OJE Report Released Date/Time: February 28, 2024 10:29 AM Reporting Lab: [facility] TRN [facility]ITALUSETS [facility] [address] [facility] [address] Performing Lab: [facility]N [facility]ITALUSEV[facility] [address] [facility] [address] [facility]ITALUSE [facility] LIPID PANEL, NON FASTING CHOLESTEROL IN LDL [MASS/VOLUM E] IN SERUM OR PLASMA BY CALCULATION 102 mg/dL 0 - 129 03/03 Specimen Type: SERUM No comment entered. Ordering Provider: KARTHIKEYAN JOE Report Released Date/Time: February 28, 2024 10:29 AM Reporting Lab: [facility]ITALUSEV[facility] [address] [facility] [address] Performing Lab: [facility]N [facility]ITALUSEV[facility] [address] [facility] [address] [facility] [place] [facility] LIPID PANEL, NON FASTING CHOLESTEROL .TOTAL/CHOL ESTEROL IN HDL [MASS RATIO] IN SERUM OR PLASMA 2.6 03/03 Specimen Type: SERUM No comment entered. Ordering Provider: KARTHIKEYAN JOE Report Released Date/Time: February 28, 2024 10:29 AM Reporting Lab: [facility] [place] [facility] [address] [facility] [address] Performing Lab: [facility] [place] [facility] [address] [facility] [address] [facility] [place] [facility] LIPID PANEL, NON FASTING CHOLESTEROL IN HDL [MASS/VOLUM E] IN SERUM OR PLASMA 74 mg/dL 40 - 60 03/03 H Specimen Type: SERUM No comment entered. Ordering Provider: KARTHIKEYAN JOE Report Released Date/Time: February 28, 2024 10:29 AM Reporting Lab: [facility] [place] [address] [address] Performing Lab: [facility] [place] [facility] [address] [facility] [address] [facility] [place] [facility] BASIC METABOLIC PANEL (fasting) UREA NITROGEN [MASS/VOLUM E] IN SERUM OR PLASMA 18 mg/dL 7 - 25 09/23 Specimen Type: SERUM No comment entered. Ordering Provider: KENAN DODD Report Released Date/Time: Sep 09, 2023 03:28 PM Reporting Lab: [facility] [place] [address] [address] Performing Lab: [facility] [place] [facility] [address] [facility] [address] [facility] [place] [facility] BASIC METABOLIC PANEL (fasting) GLUCOSE [MASS/VOLUM E] IN SERUM OR PLASMA 97 mg/dL 65 - 100 09/23 Specimen Type: SERUM No comment entered. Ordering Provider: KENAN DODD Report Released Date/Time: Sep 09, 2023 03:28 PM Reporting Lab: [facility] [place] [address] [address] Performing Lab: [facility] [place] [facility] [address] [facility] [address] [facility] [place] [facility] BASIC METABOLIC PANEL (fasting) SODIUM [MOLES/VOLU ME] IN SERUM OR PLASMA 146 mmol/L 135 - 145 09/23 H Specimen Type: SERUM No comment entered. Ordering Provider: KENAN DODD Report Released Date/Time: Sep 09, 2023 03:28 PM Reporting Lab: [facility] [place] [facility] [address] [facility] [address] Performing Lab: [facility] [place] [facility] [address] [facility] [address] [place] [facility] [place] [facility] BASIC METABOLIC PANEL (fasting) POTASSIUM [MOLES/VOLU ME] IN SERUM OR PLASMA 4.9 mmol/L 3.5 - 5.0 09/23 Specimen Type: SERUM No comment entered. Ordering Provider: KENAN DODD Report Released Date/Time: Sep 09, 2023 03:28 PM Reporting Lab: [facility] [place] [facility] [address] [facility] [address] Performing Lab: [facility] [place] [facility] [address] [facility] [address] [place] [facility] [place] [facility] BASIC METABOLIC PANEL (fasting) CHLORIDE [MOLES/VOLU ME] IN SERUM OR PLASMA 108 mmol/L 100 - 110 09/23 Specimen Type: SERUM No comment entered. Ordering Provider: KENAN DODD Report Released Date/Time: Sep 09, 2023 03:28 PM Reporting Lab: [facility] [place] [facility] [address] [facility] [address] Performing Lab: [facility] [place] [facility] [address] [facility] [address] [facility] [place] [facility] BASIC METABOLIC PANEL (fasting) CARBON DIOXIDE, TOTAL [MOLES/VOLU ME] IN SERUM OR PLASMA 28 meq/L 20 - 30 09/23 Specimen Type: SERUM No comment entered. Ordering Provider: KENAN DODD Report Released Date/Time: Sep 09, 2023 03:28 PM Reporting Lab: [facility] [place] [facility] [address] [facility] [address] Performing Lab: [facility] [place] [facility] [address] [facility] [address] [facility] [place] [facility] BASIC METABOLIC PANEL (fasting) CREATININE [MASS/VOLUM E] IN SERUM OR PLASMA 1.08 mg/dL 0.50 - 1.40 09/23 Specimen Type: SERUM No comment entered. Ordering Provider: KENAN DODD Report Released Date/Time: Sep 09, 2023 03:28 PM Reporting Lab: [facility] [place] [facility] [address] [facility] [address] Performing Lab: [place] [facility] [place] [facility] [address] [facility] [phone] [facility] BASIC METABOLIC PANEL (fasting) GLOMERULAR FILTRATION RATE/1.73 SQ M.PREDICTED [VOLUME RATE/AREA] IN SERUM, PLASMA OR BLOOD BY CREATININE- BASED FORMULA (CKD-EPI 2020) 72 mL/min 60 09/23 Specimen Type: SERUM No comment entered. Ordering Provider: KENAN DODD Report Released Date/Time: Sep 09, 2023 03:28 PM Reporting Lab: [facility] [place] [facility] [address] [facility] [phone] Performing Lab: [facility] [address] [facility] [phone] [facility] CBC AND DIFF (AUTO) LEUKOCYTES [#/VOLUME] IN BLOOD BY AUTOMATED COUNT 5.74 10*3/u L 4.50 - 11.00 09/23 Specimen Type: BLOOD No comment entered. Ordering Provider: KENAN DODD Report Released Date/Time: Sep 09, 2023 03:28 PM Reporting Lab: [facility] [place] [facility] [address] [facility] [phone] Performing Lab: [place] [facility] [place] [facility] [address] [facility] [phone] [facility] CBC AND DIFF (AUTO) ERYTHROCYTE S [#/VOLUME] IN BLOOD BY AUTOMATED COUNT 5.55 10*6/u L 4.23 - 5.66 09/23 Specimen Type: BLOOD No comment entered. Ordering Provider: KENAN DODD Report Released Date/Time: Sep 09, 2023 03:28 PM Reporting Lab: [facility] [facility] [place] [address] [address] Performing Lab: [facility] [place] [facility] [address] [facility] [address] [facility] CBC AND DIFF (AUTO) HEMOGLOBIN [MASS/VOLUM E] IN BLOOD 14.1 g/dL 12.8 - 17 09/23 Specimen Type: BLOOD No comment entered. Ordering Provider: KENAN DODD Report Released Date/Time: Sep 09, 2023 03:28 PM Reporting Lab: [facility] [place] [address] [address] Performing Lab: [facility] [place] [address] [address] [facility] [facility] CBC AND DIFF (AUTO) HEMATOCRIT [VOLUME FRACTION] OF BLOOD BY AUTOMATED COUNT 43.5 39.2 - 50.4 09/23 Specimen Type: BLOOD No comment entered. Ordering Provider: KENAN DODD Report Released Date/Time: Sep 09, 2023 03:28 PM Reporting Lab: [facility] [place] [address] [address] Performing Lab[facility] [place] [facility] [address] [facility] [address] [facility] CBC AND DIFF (AUTO) MCV [ENTITIC VOLUME] BY AUTOMATED COUNT 78.4 fL 82 - 99 09/23 L Specimen Type: BLOOD No comment entered. Ordering Provider: KENAN DODD Report Released Date/Time: Sep 09, 2023 03:28 PM Reporting Lab: [facility] [place] [address] [address] Performing Lab: [facility] [place] [address] [facility] [address] [facility] CBC AND DIFF (AUTO) MCHC [MASS/VOLUM E] BY AUTOMATED COUNT 32.4 g/dL 30.8 - 35.1 09/23 Specimen Type: BLOOD No comment entered. Ordering Provider: KENAN DODD Report Released Date/Time: Sep 09, 2023 03:28 PM Reporting Lab: [facility] [place] [facility] [address] [facility] [address] Performing Lab: [facility] [place] [address] [facility] [address] [facility] CBC AND DIFF (AUTO) PLATELETS [#/VOLUME] IN BLOOD BY AUTOMATED COUNT 231 10*3/u L 140 - 360 09/23 Specimen Type: BLOOD No comment entered. Ordering Provider: KENAN DODD Report Released Date/Time: Sep 09, 2023 03:28 PM Reporting Lab: [facility] [place] [address] [facility] [address] Performing Lab: [facility] [place] [facility] [address] [facility] [address] [facility] CBC AND DIFF (AUTO) ERYTHROCYTE DISTRIBUTIO N WIDTH [RATIO] BY AUTOMATED COUNT 15.2 12.0 - 16.0 09/23 Specimen Type: BLOOD No comment entered. Ordering Provider: KENAN DODD Report Released Date/Time: Sep 09, 2023 03:28 PM Reporting Lab: [facility] [place] [facility] [address] [facility] [address] Performing Lab: [facility] [place] [facility] [address] [facility] [address] [facility] CBC AND DIFF (AUTO) MONOCYTES [#/VOLUME] IN BLOOD BY AUTOMATED COUNT 0.49 10*3/u L 0.30 - 1.10 09/23 Specimen Type: BLOOD No comment entered. Ordering Provider: KENAN DODD Report Released Date/Time: Sep 09, 2023 03:28 PM Reporting Lab: [facility] [place] [facility] [address] [facility] [address] Performing Lab: [facility] [place] [facility] [address] [facility] [address] [facility] CBC AND DIFF (AUTO) MCH [ENTITIC MASS] BY AUTOMATED COUNT 25.4 pg 26.2 - 32.6 09/23 L Specimen Type: BLOOD No comment entered. Ordering Provider: KENAN DODD Report Released Date/Time: Sep 09, 2023 03:28 PM Reporting Lab: [facility] [place] [facility] [address] [facility] [address] Performing Lab: [facility] [place] [facility] [address] [facility] [address] [facility] CBC AND DIFF (AUTO) NEUTROPHILS /100 LEUKOCYTES IN BLOOD BY AUTOMATED COUNT 54.3 43.7 - 75.8 09/23 Specimen Type: BLOOD No comment entered. Ordering Provider: KENAN DODD Report Released Date/Time: Sep 09, 2023 03:28 PM Reporting Lab: [facility] [place] [facility] [address] [facility] [address] Performing Lab: [facility] [place] [facility] [address] [facility] [address] [facility] [place] [facility] CBC AND DIFF (AUTO) LYMPHOCYTES /100 LEUKOCYTES IN BLOOD BY AUTOMATED COUNT 31.5 14.0 - 42.3 09/23 Specimen Type: BLOOD No comment entered. Ordering Provider: KENAN DODD [employer] Report Released Date/Time: Sep 09, 2023 03:28 PM Reporting Lab: [facility] [place] [facility] [address] [facility] [address] Performing Lab: [facility] [place] [facility] [address] [facility] [address] [facility] CBC AND DIFF (AUTO) MONOCYTES/1 00 LEUKOCYTES IN BLOOD BY AUTOMATED COUNT 8.5 5.1 - 13.7 09/23 Specimen Type: BLOOD No comment entered. Ordering Provider: KENAN DODD Report Released Date/Time: Sep 09, 2023 03:28 PM Reporting Lab: [facility] [place] [facility] [address] [facility] [address] Performing Lab: [facility] [place] [facility] [address] [facility] [address] [facility] CBC AND DIFF (AUTO) EOSINOPHILS /100 LEUKOCYTES IN BLOOD BY AUTOMATED COUNT 4.4 0.4 - 6.8 09/23 Specimen Type: BLOOD No comment entered. Ordering Provider: KENAN DODD Report Released Date/Time: Sep 09, 2023 03:28 PM Reporting Lab: [facility] [place] [facility] [address] [facility] [address] Performing Lab: [facility] [place] [facility] [address] [facility] [address] [facility] CBC AND DIFF (AUTO) BASOPHILS/1 00 LEUKOCYTES IN BLOOD BY AUTOMATED COUNT 1.0 0.1 - 2.0 09/23 Specimen Type: BLOOD No comment entered. Ordering Provider: KENAN DODD Report Released Date/Time: Sep 09, 2023 03:28 PM Reporting Lab: [facility] [place] [facility] [address] [facility] [address] Performing Lab: [facility] [place] [facility] [address] [facility] [address] [facility] CBC AND DIFF (AUTO) NEUTROPHILS [#/VOLUME] IN BLOOD BY AUTOMATED COUNT 3.11 10*3/u L 2.20 - 7.60 09/23 Specimen Type: BLOOD No comment entered. Ordering Provider: KENAN DODD Report Released Date/Time: Sep 09, 2023 03:28 PM Reporting Lab: [facility] [place] [facility] [address] [facility] [address] Performing Lab: [facility] [place] [facility] [address] [facility] [address] [facility] CBC AND DIFF (AUTO) LYMPHOCYTES [#/VOLUME] IN BLOOD BY AUTOMATED COUNT 1.81 10*3/u L 1.00 - 3.20 09/23 Specimen Type: BLOOD No comment entered. Ordering Provider: KENAN DODD Report Released Date/Time: Sep 09, 2023 03:28 PM Reporting Lab: [facility] [place] [facility] [address] [facility] [address] Performing Lab: [facility] [place] [facility] [address] [facility] [address] [facility] CBC AND DIFF (AUTO) EOSINOPHILS [#/VOLUME] IN BLOOD BY AUTOMATED COUNT 0.25 10*3/u L 0.03 - 0.44 09/23 Specimen Type: BLOOD No comment entered. Ordering Provider: KENAN DODD Report Released Date/Time: Sep 09, 2023 03:28 PM Reporting Lab: [facility] [place] [address] [address] Performing Lab[facility] [place] [address] [address] [facility] CBC AND DIFF (AUTO) BASOPHILS [#/VOLUME] IN BLOOD BY AUTOMATED COUNT 0.06 10*3/u L 0.01 - 0.13 09/23 Specimen Type: BLOOD No comment entered. Ordering Provider: KENAN DODD Report Released Date/Time: Sep 09, 2023 03:28 PM Reporting Lab: [facility] [place] [facility] [address] [facility] [address] Performing Lab: [facility] [place] [address] [address] [facility] CBC AND DIFF (AUTO) IMMATURE GRANULOCYTE S/100 LEUKOCYTES IN BLOOD BY AUTOMATED COUNT 0.3 0.0 - 0.7 09/23 Specimen Type: BLOOD No comment entered. Ordering Provider: KENAN DODD Report Released Date/Time: Sep 09, 2023 03:28 PM Reporting Lab: [facility] [place] [address] [place] [address] Performing Lab: [facility] [place] [facility] [address] [facility] [address] [facility] [place] [facility] CBC AND DIFF (AUTO) IMMATURE GRANULOCYTE S [#/VOLUME] IN BLOOD 0.02 10*3/u L 0.00 - 0.06 09/23 Specimen Type: BLOOD No comment entered. Ordering Provider: KENAN DODD Report Released Date/Time: Sep 09, 2023 03:28 PM Reporting Lab: [facility] [place] [facility] [address] [facility] [address] Performing Lab: [facility] [place] [facility] [address] [facility] [address] [facility] [place] [facility] LIPID PANEL FASTING CHOLESTEROL [MASS/VOLUM E] IN SERUM OR PLASMA 215 mg/dL 09/23 H Specimen Type: SERUM No comment entered. Ordering Provider: KENAN DODD Report Released Date/Time: Sep 09, 2023 03:28 PM Reporting Lab: [facility] [place] [facility] [address] [facility] [address] Performing Lab: [facility] [place] [facility] [address] [facility] [address] [facility] [place] [facility] LIPID PANEL FASTING TRIGLYCERID E [MASS/VOLUM E] IN SERUM OR PLASMA 66 mg/dL 0 - 150 09/23 Specimen Type: SERUM No comment entered. Ordering Provider: KENAN DODD Report Released Date/Time: Sep 09, 2023 03:28 PM Reporting Lab: [facility] [place] [facility] [address] [facility] [address] Performing Lab: [facility] [place] [facility] [address] [facility] [address] [facility] [place] [facility] LIPID PANEL FASTING CHOLESTEROL IN LDL [MASS/VOLUM E] IN SERUM OR PLASMA BY CALCULATION 125.8 mg/dL 0 - 129 09/23 Specimen Type: SERUM No comment entered. Ordering Provider: KENAN DODD Report Released Date/Time: Sep 09, 2023 03:28 PM Reporting Lab: [facility] [place] [facility] [address] [facility] [address] Performing Lab: [facility] [place] [facility] [address] [facility] [address] [facility] [place] [facility] LIPID PANEL FASTING CHOLESTEROL .TOTAL/CHOL ESTEROL IN HDL [MASS RATIO] IN SERUM OR PLASMA 2.8 09/23 Specimen Type: SERUM No comment entered. Ordering Provider: KENAN DODD Report Released Date/Time: Sep 09, 2023 03:28 PM Reporting [facility] [address] [facility] [address] Performing Lab: [facility] [place] [facility] [address] [facility] [address] [facility] LIPID PANEL FASTING CHOLESTEROL IN HDL [MASS/VOLUM E] IN SERUM OR PLASMA 76 mg/dL 40 - 60 09/23 H Specimen Type: SERUM No comment entered. Ordering Provider: KENAN DODD Report Released Date/Time: Sep 09, 2023 03:28 PM Reporting Lab: [facility] [place] [facility] [address] [facility] [address] Performing Lab: [facility] [place] [facility] [address] [facility] [address] [facility] BASIC METABOLIC PANEL (fasting) UREA NITROGEN [MASS/VOLUM E] IN SERUM OR PLASMA 19 mg/dL 7 - 25 03/11 Specimen Type: SERUM No comment entered. Ordering Provider: KENAN DODD Report Released Date/Time: Jan 25, 2023 10:36 AM Reporting Lab: [facility] [place] [facility] [address] [facility] [address] Performing Lab: [facility] [place] [facility] [address] [facility] [address] [facility] [facility] BASIC METABOLIC PANEL (fasting) GLUCOSE [MASS/VOLUM E] IN SERUM OR PLASMA 94 mg/dL 65 - 100 05/15 /2023 Specimen Type: SERUM No comment entered. Ordering Provider: KENAN DODD Report Released Date/Time: Jan 25, 2023 10:36 AM Reporting Lab: [facility] [place] [facility] [address] [facility] [address] Performing Lab: [facility] [place] [facility] [address] [facility] [address] [facility] [place] [facility] BASIC METABOLIC PANEL (fasting) SODIUM [MOLES/VOLU ME] IN SERUM OR PLASMA 140 mmol/L 135 - 145 03/11 Specimen Type: SERUM No comment entered. Ordering Provider: KENAN DODD Report Released Date/Time: Jan 25, 2023 10:36 AM Reporting Lab: [facility] [place] [facility] [address] [facility] [address] Performing Lab: [facility] [place] [address] [address] [facility] [place] [facility] BASIC METABOLIC PANEL (fasting) POTASSIUM [MOLES/VOLU ME] IN SERUM OR PLASMA 4.8 mmol/L 3.5 - 5.0 03/11 Specimen Type: SERUM No comment entered. Ordering Provider: KENAN DODD Report Released Date/Time: Jan 25, 2023 10:36 AM Reporting Lab: [facility] [place] [facility] [address] [facility] [address] Performing Lab: [facility] [place] [facility] [address] [facility] [address] [facility] [place] [facility] BASIC METABOLIC PANEL (fasting) CHLORIDE [MOLES/VOLU ME] IN SERUM OR PLASMA 105 mmol/L 100 - 110 03/11 Specimen Type: SERUM No comment entered. Ordering Provider: KENAN DODD Report Released Date/Time: Jan 25, 2023 10:36 AM Reporting Lab: [facility] [place] [facility] [address] [facility] [address] Performing Lab: [facility] [place] [facility] [address] [facility] [address] [facility] [place] [facility] BASIC METABOLIC PANEL (fasting) CARBON DIOXIDE, TOTAL [MOLES/VOLU ME] IN SERUM OR PLASMA 27 meq/L 20 - 30 03/11 Specimen Type: SERUM No comment entered. Ordering Provider: KENAN DODD Report Released Date/Time: Jan 25, 2023 10:36 AM Reporting Lab: [facility] [place] [facility] [address] [facility] [address] Performing Lab: [facility] [place] [facility] [address] [facility] [address] [facility] BASIC METABOLIC PANEL (fasting) CREATININE [MASS/VOLUM E] IN SERUM OR PLASMA 0.95 mg/dL 0.50 - 1.40 03/11 Specimen Type: SERUM No comment entered. Ordering Provider: KENAN DDOD Report Released Date/Time: Jan 25, 2023 10:36 AM Reporting Lab: [facility] [place] [address] [address] Performing Lab[facility] [place] [facility] [address] [facility] [address] [facility] BASIC METABOLIC PANEL (fasting) GLOMERULAR FILTRATION RATE/1.73 SQ M.PREDICTED [VOLUME RATE/AREA] IN SERUM, PLASMA OR BLOOD BY CREATININE- BASED FORMULA (CKD-EPI) 83 mL/min 60 03/11 Specimen Type: SERUM No comment entered. Ordering Provider: KENAN DODD Report Released Date/Time: Jan 25, 2023 10:36 AM Reporting Lab: [facility] [place] [address] [address] Performing Lab: [facility] [place] [address] [address] [facility] LIPID PANEL FASTING CHOLESTEROL [MASS/VOLUM E] IN SERUM OR PLASMA 288 mg/dL 7 - 199 03/11 H Specimen Type: SERUM No comment entered. Ordering Provider: KENAN DODD Report Released Date/Time: Jan 25, 2023 10:36 AM Reporting Lab: [facility] [place] [address] [address] Performing Lab: [facility] [place] [facility] [address] [facility] [address] [facility] [place] [facility] LIPID PANEL FASTING TRIGLYCERID E [MASS/VOLUM E] IN SERUM OR PLASMA 65 mg/dL 0 - 150 03/11 Specimen Type: SERUM No comment entered. Ordering Provider: KENAN DODD Report Released Date/Time: Jan 25, 2023 10:36 AM Reporting Lab: [facility] [place] [facility] [address] [facility] [address] Performing Lab: [facility] [place] [facility] [address] [facility] [address] [facility] [place] [facility] LIPID PANEL FASTING CHOLESTEROL IN LDL [MASS/VOLUM E] IN SERUM OR PLASMA BY CALCULATION 210 mg/dL 0 - 129 03/11 H Specimen Type: SERUM No comment entered. Ordering Provider: KENAN DODD Report Released Date/Time: Jan 25, 2023 10:36 AM Reporting Lab: [facility] [place] [facility] [address] [facility] [address] Performing Lab: [facility] [place] [facility] [address] [facility] [address] [facility] [place] [facility] LIPID PANEL FASTING CHOLESTEROL .TOTAL/CHOL ESTEROL IN HDL [MASS RATIO] IN SERUM OR PLASMA 4.4 03/11 Specimen Type: SERUM No comment entered. Ordering Provider: KENAN DODD Report Released Date/Time: Jan 25, 2023 10:36 AM Reporting Lab: [facility] [place] [facility] [address] [facility] [address] Performing Lab: [facility] [place] [facility] [address] [facility] [address] [facility] [place] [facility] LIPID PANEL FASTING CHOLESTEROL IN HDL [MASS/VOLUM E] IN SERUM OR PLASMA 65 mg/dL 40 - 60 03/11 H Specimen Type: SERUM No comment entered. Ordering Provider: KENAN DODD Report Released Date/Time: Jan 25, 2023 10:36 AM Reporting Lab: [facility] [place] [facility] [address] [facility] [address] Performing Lab: [facility] [place] [facility] [address] [facility] [address] [facility] [place] [facility] LIVER FUNCTION PROTEIN [MASS/VOLUM E] IN SERUM OR PLASMA 7.1 g/dL 6.0 - 8.3 03/11 Specimen Type: SERUM No comment entered. Ordering Provider: KENAN DODD Report Released Date/Time: Jan 25, 2023 10:36 AM Reporting Lab: [facility] [place] [facility] [address] [facility] [address] Performing Lab: [facility] [place] [facility] [address] [facility] [address] [facility] [place] [facility] LIVER FUNCTION ALBUMIN [MASS/VOLUM E] IN SERUM OR PLASMA 3.6 g/dL 3.5 - 5.0 03/11 Specimen Type: SERUM No comment entered. Ordering Provider: KENAN DODD Report Released Date/Time: Jan 25, 2023 10:36 AM Reporting Lab: [facility] [place] [facility] [address] [facility] [address] Performing Lab: [facility] [place] [facility] [address] [facility] [address] [facility] [place] [facility] LIVER FUNCTION ALKALINE PHOSPHATASE [ENZYMATIC ACTIVITY/VO LUME] IN SERUM OR PLASMA 173 U/L 40 - 150 03/11 H Specimen Type: SERUM No comment entered. Ordering Provider: KENAN DODD Report Released Date/Time: Jan 25, 2023 10:36 AM Reporting Lab: [facility] [place] [facility] [address] [facility] [address] Performing Lab: [facility] [place] [facility] [address] [facility] [address] [facility] [place] [facility] LIVER FUNCTION ASPARTATE AMINOTRANSF ERASE [ENZYMATIC ACTIVITY/VO LUME] IN SERUM OR PLASMA 21 U/L 5 - 34 03/11 Specimen Type: SERUM No comment entered. Ordering Provider: KENAN DODD Report Released Date/Time: Jan 25, 2023 10:36 AM Reporting Lab: [facility] [place] [facility] [address] [facility] [address] Performing Lab: [facility] [place] [facility] [address] [facility] [address] [facility] [place] [facility] LIVER FUNCTION ALANINE AMINOTRANSF ERASE [ENZYMATIC ACTIVITY/VO LUME] IN SERUM OR PLASMA 45 U/L 6 - 55 03/11 Specimen Type: SERUM No comment entered. Ordering Provider: KENAN DODD Report Released Date/Time: Jan 25, 2023 10:36 AM Reporting Lab: [facility] [place] [facility] [address] [facility] [address] Performing Lab: [facility] [place] [facility] [address] [facility] [address] [facility] [place] [facility] LIVER FUNCTION BILIRUBIN.T OTAL [MASS/VOLUM E] IN SERUM OR PLASMA 0.5 mg/dL 0.2 - 1.2 03/11 Specimen Type: SERUM No comment entered. Ordering Provider: KENAN DDOD Report Released Date/Time: Jan 25, 2023 10:36 AM Reporting Lab: [facility] [place] [facility] [address] [facility] [address] Performing Lab: [facility] [address] [address] [facility] Vital Signs Combined list of inpatient and outpatient Vital Signs from Department of Defense and Veterans Affairs, ranging from 12 months to all on record, depending upon the facility. Vital Sign Value Date Comments Source SYSTOLIC BLOOD PRESSURE 127 09/08/20 24 07:59:52 [facility] DIASTOLIC BLOOD PRESSURE 76 024 07:59:52 [facility] PULSE OXIMETRY 99 09/08/2024 07:59:52 [facility] WEIGHT 187 09/08/2024 07:59:52 [facility] [id number] Diagnos is: ICD-10- CM F43.10 Post-tr aumatic stress disorde r, unspeci fied
[facility] 05[facility]27 [facility] [id number] Diagnos is: ICD-10- CM F43.10 Post-tr aumatic stress disorde r, unspeci fied
MARK,[facility] 06/03 [facility] [id number] Diagnos is: ICD-10- CM F43.10 Post-tr aumatic stress disorde r, unspeci fied
MARK,[facility] 06/10 [facility] [id number] Diagnos is: ICD-10- CM F43.10 Post-tr aumatic stress disorde r, unspeci fied
MARK,[facility] 06/17 [facility] [id number] Diagnos is: ICD-10- CM F43.10 Post-tr aumatic stress disorde r, unspeci fied
[facility] 06/24 [facility] [id number] Diagnos is: ICD-10- CM F43.10 Post-tr aumatic stress disorde r, unspeci fied
MARK,[facility] 07/08 [facility] [id number] 07/11 [facility] LIT [id number] Diagnos is: ICD-10- CM K03.6 Deposit s [accret ions] on teeth<b r/> Svetlana AGOSTO ADEMiliHDA 07/12 [facility] En[facility] [id number] MARK,[facility] 07/17 [facility] [facility]CHOTHER APY [id number] Diagnos is: ICD-10- CM F43.10 Post-tr aumatic stress disorde r, unspeci fied
MARK,[facility] ISTIE 07/22 [facility] [id number] Diagnos is: ICD-10- CM F43.10 Post-tr aumatic stress disorde r, unspeci fied
MARK,CHR ISTIE 07/29 [facility] PSYTX W PT W E/M 30 MIN [id number] Diagnos is: ICD-10- CM F10.21 Alcohol depende nce, in remissi on
Rojelio WIGGINS B 07/30 [facility] Out[facility] Encounter [id number] 08/11 [facility]Y [id number] Diagnos is: ICD-10- CM F43.10 Post-tr aumatic stress disorde r, unspeci fied
MARK,CHR ISTIE 08/12 [facility] En[facility] [id number] 08/26 [facility] [id number] Diagnos is: ICD-10- CM F43.10 Post-tr aumatic stress disorde r, unspeci fied
MARK,CHR ISTIE 09/02 [facility] [id number] Diagnos is: ICD-10- CM F43.10 Post-tr aumatic stress disorde r, unspeci fied
MARK,CHR ISTIE 09/16 [facility] En[facility] [id number] 09/18 [facility] APY [id number] Diagnos is: ICD-10- CM F43.10 Post-tr aumatic stress disorde r, unspeci fied
MARK,CHR ISTIE 09/23 [facility] OFFICE O/P EST MOD 30-39 MIN [id number] Diagnos is: ICD-10- CM F43.12 Post-tr aumatic stress disorde r, chronic
AHAUREA KING MMED JAWED 09/26 [facility] [id number] Diagnos is: ICD-10- CM F43.10 Post-tr aumatic stress disorde r, unspeci fied
MARK,CHR ISTIE 09/30 [facility] [id number] Diagnos is: ICD-10- CM F43.10 Post-tr aumatic stress disorde r, unspeci fied
MARK,CHR ISTIE 10/07 [facility] Out[facility] Encounter [id number] 10/11 [facility]Y [id number] Diagnos is: ICD-10- CM F43.10 Post-tr aumatic stress disorde r, unspeci fied
MARK,CHR ISTIE 10/14 [facility] OFF/OP EST MAY X REQ PHY/QHP [id number] Diagnos is: ICD-10- CM Z01.30 Encount er for exam of blood pressur e w/o abnorma l finding s
Zain AGUDELO NORA H 10/23 [facility] PSYTX W PT W E/M 30 MIN [id number] Diagnos is: ICD-10- CM F43.12 Post-tr aumatic stress disorde r, chronic
Rojelio WIGGINS CARLA B 10/24 [facility]Y [id number] Diagnos is: ICD-10- CM F43.10 Post-tr aumatic stress disorde r, unspeci fied
MARK,CHR ISTIE 11/04 [facility]Y [id number] Diagnos is: ICD-10- CM F43.10 Post-tr aumatic stress disorde r, unspeci fied
MARK,CHR ISTIE 11/18 [facility]Y [id number] Diagnos is: ICD-10- CM F43.10 Post-tr aumatic stress disorde r, unspeci fied
MARK,CHR ISTIE 12/02 [facility]Y [id number] Diagnos is: ICD-10- CM F43.10 Post-tr aumatic stress disorde r, unspeci fied
MARK,CHR ISTIE 12/09 [facility] HEARING AID REPAIR/MOD IFYING [id number] Diagnos is: ICD-10- CM Z46.1 Encount er for fitting and adjustm ent of hearing aid<br/ > GRISEL CACERES L 12/17 [facility]Y [id number] Diagnos is: ICD-10- CM F43.10 Post-tr aumatic stress disorde r, unspeci fied
MARK,CHR ISTIE 12/23 [facility]Y [id number] Diagnos is: ICD-10- CM F43.10 Post-tr aumatic stress disorde r, unspeci fied
MARK,CHR ISTIE 12/29 [facility] HEARING AID REPAIR/MOD IFYING [id number] Diagnos is: ICD-10- CM Z46.1 Encount er for fitting and adjustm ent of hearing aid<br/ > Kinza PALMA 01/02 [facility]Y [id number] Diagnos is: ICD-10- CM F43.10 Post-tr aumatic stress disorde r, unspeci fied
MARK,CHR ISTIE 01/05 [facility] Out[facility]counter [id number] 01/08 [facility] Outpatient Encounter [id number] 01/08 [facility] CASE MGMT-[facility]AL [facility] LIT [id number] Diagnos is: ICD-10- CM K03.6 Deposit s [accret ions] on teeth<b r/> Svetlana AGOSTO ADEZHDA 01/09 [facility] DENTAL BITEWING FOUR IMAGES [id number] [id number] Diagnos is: ICD-10- CM K08.9 Disorde r of teeth and support ing structu res, unspeci fied
TORRESMIKAELA 01/09 [facility]Y [id number] Diagnos is: ICD-10- CM F43.10 Post-tr aumatic stress disorde r, unspeci fied
MARK,CHR ISTIE 01/12 [facility] Out[facility] Encounter [id number] 01/17 [facility]CH[facility] APY [id number] Diagnos is: ICD-10- CM F43.10 Post-tr aumatic stress disorde r, unspeci fied
MARK,CHR ISTIE 01/19 [facility] APY [id number] Diagnos is: ICD-10- CM F43.10 Post-tr aumatic stress disorde r, unspeci fied
MARK,CHR ISTIE 01/26 [facility] GROUP PSYCH[facility] APY [id number] Diagnos is: ICD-10- CM F43.10 Post-tr aumatic stress disorde r, unspeci fied
MARK,CHR ISTIE 02/02 [facility]Y [id number] Diagnos is: ICD-10- CM F43.10 Post-tr aumatic stress disorde r, unspeci fied
MARK,CHR ISTIE 02/09 [facility]Y [id number] Diagnos is: ICD-10- CM F43.10 Post-tr aumatic stress disorde r, unspeci fied
MARK,CHR ISTIE 02/16 [facility]CH[facility] APY [id number] Diagnos is: ICD-10- CM F43.10 Post-tr aumatic stress disorde r, unspeci fied
MARK,CHR ISTIE 02/23 [facility] [id number] 03/09 [facility] OFFICE O/P EST MOD 30 MIN [id number] Diagnos is: ICD-10- CM 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 , unspeci fied site
FURCOLO,TI NA 03/09 [facility] [id number] Diagnos is: ICD-10- CM F43.10 Post-tr aumatic stress disorde r, unspeci fied
MARK,CHR ISTIE 03/09 [facility] [id number] Diagnos is: ICD-10- CM F43.10 Post-tr aumatic stress disorde r, unspeci fied
MARK,CHR ISTIE 03/16 [facility] PSYTX W PT W E/M 30 MIN [id number] Diagnos is: ICD-10- CM F10.21 Alcohol depende nce, in remissi on
FELICIANO,P CARLA B 03/26 [facility]Y [id number] Diagnos is: ICD-10- CM F43.10 Post-tr aumatic stress disorde r, unspeci fied
MARK,CHR ISTIE 03/30 [facility]Y [id number] Diagnos is: ICD-10- CM F43.10 Post-tr aumatic stress disorde r, unspeci fied
MARK,CHR ISTIE 04/06 [facility] [id number] Diagnos is: ICD-10- CM F43.10 Post-tr aumatic stress disorde r, unspeci fied
MARK,CHR ISTIE 05/04 [facility]Y [id number] Diagnos is: ICD-10- CM F43.10 Post-tr aumatic stress disorde r, unspeci fied
MARK,CHR ISTIE 05/11 [facility] [id number] Diagnos is: ICD-10- CM F43.10 Post-tr aumatic stress disorde r, unspeci fied
MARK,CHR ISTIE 05/18 [facility] Out[facility] Encounter [id number] 05/25 [facility] [id number] Diagnos is: ICD-10- CM F43.10 Post-tr aumatic stress disorde r, unspeci fied
MARK,CHR ISTIE 06/01 [facility]Y [id number] Diagnos is: ICD-10- CM F43.10 Post-tr aumatic stress disorde r, unspeci fied
MARK,CHR ISTIE 06/08 [facility] APY [id number] Diagnos is: ICD-10- CM F43.10 Post-tr aumatic stress disorde r, unspeci fied
MARK,CHR ISTIE 06/15 [facility] APY [id number] Diagnos is: ICD-10- CM F43.10 Post-tr aumatic stress disorde r, unspeci fied
MARK,CHR ISTIE 06/22 [facility]Y [id number] Diagnos is: ICD-10- CM F43.10 Post-tr aumatic stress disorde r, unspeci fied
MARK,CHR ISTIE 07/13 [facility] HEARING AID REPAIR/MOD IFYING [id number] Diagnos is: ICD-10- CM Z46.1 Encount er for fitting and adjustm ent of hearing aid<br/ > SHAYNE GARRISON L 07/13 [facility] Outpatient Encounter [id number] 1.07/15 [facility] CASE [facility] LIT [id number] Diagnos is: ICD-10- CM K03.6 Deposit s [accret ions] on teeth<b r/> Svetlana AGOSTO ADEMiliHDA 07/16 [facility] PS[facility]CH[facility] APY [id number] Diagnos is: ICD-10- CM F43.10 Post-tr aumatic stress disorde r, unspeci fied
MARK,[facility] 07/20 [facility] [id number] [id number] Diagnos is: ICD-10- CM F43.10 Post-tr aumatic stress disorde r, unspeci fied
MARK,CHR ISTIE 07/27 [facility]Y [id number] Diagnos is: ICD-10- CM F43.10 Post-tr aumatic stress disorde r, unspeci fied
MARK,CHR ISTIE 08/03 [facility] Encounter [id number] 08/06 [facility]CHOTHER [facility]Y [id number] Diagnos is: ICD-10- CM F43.10 Post-tr aumatic stress disorde r, unspeci fied
MARK,CHR ISTIE 08/24 [facility] [id number] 08/28 [facility] PS[facility]CHOTHER [facility]Y [id number] Diagnos is: ICD-10- CM F43.10 Post-tr aumatic stress disorde r, unspeci fied
MARK,CHR ISTIE 08/31 [facility] OFFICE O/P EST MOD 30 MIN [id number] [id number] Diagnos is: ICD-10- CM R97.20 Elevate d prostat e specifi c antigen [PSA]<b r/> FURCOLO,TI NA 09/08 [facility] PSYTX W PT W E/M 30 MIN 06137-7.63 [id number] Diagnos is: ICD-10- CM F43.12 Post-tr aumatic stress disorde r, chronic
FELICIANO,P CARLA B 09/08 [facility]Y [id number]. 1. Diagnos is: ICD-10- CM F43.10 Post-tr aumatic stress disorde r, unspeci fied
MARK,CHR ISTIE 09/14 [facility]Y [id number] 1. Diagnos is: ICD-10- CM F43.10 Post-tr aumatic stress disorde r, unspeci fied
MARK,CHR ISTIE 09/21 [facility] [id number] 1. Diagnos is: ICD-10- CM F43.10 Post-tr aumatic stress disorde r, unspeci fied
MARK,CHR ISTIE 10/05 [facility]Y [id number] Diagnos is: ICD-10- CM F43.10 Post-tr aumatic stress disorde r, unspeci fied
MARK,CHR ISTIE 10/12 [facility] QNHP OL DIG ASSMT&MGMT 21+ [id number] Diagnos is: ICD-10- CM F43.12 Post-tr aumatic stress disorde r, chronic
LABELLA,KE RI DONAL 10/15 [facility]CH[facility]Y [id number] Diagnos is: ICD-10- CM F43.10 Post-tr aumatic stress disorde r, unspeci fied
MARK,CHR ISTIE 10/19 [facility] HC PRO PHONE CALL 5-10 MIN [id number] [id number] Diagnos is: ICD-10- CM F43.12 Post-tr aumatic stress disorde r, chronic
LABELLA,KE RI DONAL 10/27 [facility] PS[facility]CH[facility]Y [id number] Diagnos is: ICD-10- CM F43.10 Post-tr aumatic stress disorde r, unspeci fied
MARK,CHR ISTIE 11/02 [facility] [id number] [id number] Diagnos is: ICD-10- CM F43.10 Post-tr aumatic stress disorde r, unspeci fied
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 Social History Type Response Date Comment Source Tobacco smoking status NHIS VA-TOBACCO QUIT 15 YRS OR MORE 03/09/2024 [facility] History of tobacco use VA-[facility]BACCO FORMER USER 03/09/2024 [facility] History of tobacco use [facility]-TOBACCO QUIT 15 YRS OR MORE 03/18/2023 [facility] History of tobacco use VA-TOBACCO FORMER USER 01/11/2022 [facility] History of tobacco use VA-TOBACCO FORMER USER 12/26/2020 [facility] History of tobacco use VA-TOBACCO QUIT 15 YRS OR MORE 12/08/2019 [facility] History of tobacco use VA-TOBACCO FORMER USER 10/14/2018 [facility] History of tobacco use QUIT TOBACCO USE > 7 YEARS AGO 12/12/2017 quit > 30 yrs ( 2-3 pks a day) [facility] Plan of Care List of future care activities from Department of Veterans Affairs facilities. Additional future care activities may be listed in the Assessment and Plan section. Date/Time Care Activity Care Activity Detail Facili ty 11/26/2024 AMBULATORY - MEDICINE AMBULATORY - MEDICI NE [facility] 11/30/2024 AMBULATORY - PSYCHIATRY AMBULATORY - PSYC HIATRY [facility] 12/07/2024 AMBULATORY - PSYCHIATRY AMBULATORY - PSYC HIATRY [facility] 12/21/2024 AMBULATORY - PSYCHIATRY AMBULATORY - PSYC HIATRY [facility] 12/29/2024 AMBULATORY - NONE AMBULATORY - NONE [facility] 01/04/2025 AMBULATORY - PSYCHIATRY AMBULATORY - PSYC HIATRY [facility] 01/11/2025 AMBULATORY - PSYCHIATRY AMBULATORY - PSYC HIATRY [facility] 01/12/2025 AMBULATORY - NONE AMBULATORY - NONE [facility] 01/18/2025 AMBULATORY - PSYCHIATRY AMBULATORY - PSYC HIATRY [facility] 01/25/2025 AMBULATORY - PSYCHIATRY AMBULATORY - PSYC HIATRY [facility] 02/01/2025 AMBULATORY - PSYCHIATRY AMBULATORY - PSYC HIATRY [facility] 03/09/2025 AMBULATORY - MEDICINE AMBULATORY - MEDICI NE [facility] 12/29/2024 Imaging - CT Scan Order CHEST CT W/O CONT [facility] Advance Directives List of completed, amended, or rescinded Advance Directives on record at Department of Veterans Affairs facilities. An actual copy of the Directive is not included. Date Advance Directive Provider Source 02/09/2019 ADVANCE DIRECTIVE VAN MORENO [facility] 02/08/2019 ADVANCE DIRECTIVE SAMM BRINK [facility] [place] [facility]
--- OUTSIDE RECORDS SUMMARY | 2024-11-26 15:30 | XMS_ITS ---
Author Name [facility] [place] Organization [place] Address [address] [place] [id number] Care Team Providers Care Miter Cutter Name Role Phone YANETH JOE Primary [...] Policy 's Name Patient's Relationship to Policy [facility] ([place]) MEDICARE ADVANTAGE [facility] (WNR) Oct 28, 2019 [id number] IVANA CAM JONAS PATIENT Selected Encounter This section includes the information on record at [place] for the Encounter. Date/Time Encounter Type Encounter Description Reason Provider Source Nov 23, 2024 02:00 PM [facility] ICD-10-CM F43.10 Post-traumatic stress disorder, unspecified MARK,ZEUS IE IHE Encounter Template Text not used by [place] Assessments - Encounter Diagnoses This section includes the primary and secondary diagnoses documented for the Encounter. Date/Time Primary/Secondary Diagnosis Diagnosis Name Provider Source Nov 23, 2024 04:22 PM PRIMARY Post-traumatic stress disorder, unspecified MARK[facility] Plan of Treatment: Future Appointments (+ 6 months) and Future Tests (+/- 45 days) The Plan of Treatment section includes future care activities for the patient from all [place] [facility]. This section includes future appointments and future orders which are active, pending or scheduled. Future Appointments This section includes appointments that were scheduled to occur 6 months from the date of the Encounter, up to a maximum of 20 appointments. The data comes from all [place] treatment [facility]. Appointment Date/Time Appointment Type Appointme nt Facility Name Nov 26, 2024 11:45 AM AM[place]ORY [place] [facility] [place] [facility] Nov 30, 2024 02:00 PM AMBULATORY [place]ATRY [facility] [facility] [place] [facility] Dec 07, 2024 02:00 PM AMBULATORY - [facility]ATRY [facility] [place] [facility] Dec 21, 2024 02:00 PM AMBULATORY - [place]IATRY [place] [facility] [place] [facility] Dec 29, 2024 08:30 AM AMBULATORY - NONE [place] [facility] [place] [facility] Jan 04, 2025 02:00 PM AMBULATORY - [place]IATRY [place] [facility] [place] [facility] Jan 11, 2025 02:00 PM AMBULATORY - [place]ATRY [place] [facility] [place] [facility] Jan 12, 2025 07:30 AM AMBULATORY - NONE [facility] [place] [facility] Jan 18, 2025 02:00 PM AMBULATORY - PS[facility]IATRY [facility] [place] [facility] Jan 25, 2025 02:00 PM AMBULATORY [place] [facility] [place] [facility] Feb 01, 2025 02:00 PM AMBULATORY [place]RY [facility] [facility] [place] [facility] March 09, 2025 08:30 AM AM[place]ORY [place] [facility] [place] [facility] Active, Pending, and Scheduled Orders This section includes a listing of several types of active, pending, and scheduled orders, including clinic medications orders, diagnostic test orders, procedure orders and consult orders; where the start date of the order is 45 days before the date of the Encounter or 45 days after the date of theEncounter. The data comes from all [place] treatment [facility]. Test Date/Time Test Type Test Details Facility Name Dec 29, 2024 08:30 AM Imaging - CT Scan Order CHEST CT W/O CONT [facility] [place] [facility] Social History: Smoking Status (Most current) [...] took place. Date/Time Current Smoking Status Comment [facility] it March 09, 2024 09:00 AM VA-TOBACCO [facility] [place] [facility] Tobacco Use History This section includes a history of the smoking, or tobacco-related health factors, that were collected on or before the date of the Encounter. The data comes from the [place] facility where the Encounter took place. Date/Time Smoking Status/Tobac co Use Comment Facility March 09, 2024 09:00 AM VA-TOBACCO QUIT 15 YRS OR MORE [facility] [place] [facility] March 18, 2023 02:30 PM VA-TOBACCO FORMER USER [facility] [place] [facility] March 18, 2023 02:30 PM VA-TOBACCO QUIT 15 YRS OR MORE [facility] [place] [facility] Jan 11, 2022 08:30 AM VA-TOBACCO FORMER USER [facility] [place] [facility] Jan 11, 2022 08:30 AM VA-TOBACCO QUIT 15 YRS OR MORE [facility] [place] [facility] Dec 26, 2020 09:00 AM VA-TOBACCO FORMER USER [facility] [place] [facility] Dec 26, 2020 09:00 AM VA-TOBACCO QUIT 15 YRS OR MORE [facility] [place] [facility] Dec 08, 2019 09:16 AM VA-TOBACCO FORMER USER [facility] [place] [facility] Dec 08, 2019 09:16 AM VA-TOBACCO QUIT 15 YRS OR MORE [facility] [place] [facility] Oct 14, 2018 02:56 PM VA-TOBACCO FORMER USER [facility] [place] [facility] Oct 14, 2018 02:56 PM VA-TOBACCO QUIT 15 YRS OR MORE [facility] [place] [facility] Dec 12, 2017 09:20 AM QUIT [...] Feb 09, 2019 ADVANCE DIRECTIVE [facility] Feb 08, 2019 ADVANCE DIRECTIVE SAMM BRINK V A [facility] Encounter Notes: All associated encounter notes This section contains the clinical notes associated to the Encounter. Date/Time Encounter Note(s) Provider Source Nov 23, 2024 02:00 PM SOCIAL WORK GROUP COUNSELING NOTE: LOCAL TITLE: SOCIAL WORK GROUP NOTE STANDARD TITLE: SOCIAL WORK GROUP COUNSELING NOTE DATE OF NOTE: NOV 23, 2024@14:00 ENTRY DATE: NOV 23, 2024@16:16:53 AUTHOR: MANDY FLORES EXP COSIGNER: URGENCY: STATUS: COMPLETED This was a 60-minute supportive psychotherapy group for [employer] Veterans with PTSD. 7 members were present today. Topics discussed today included: [ x ] health/mental health issues and concerns of members and loved ones [ x ] activities of daily living, including volunteering, socialization, trying of new activities, and family. Members talked about exercise and the importance of this. gatherings [ x ] grief and loss, including of family, friends, and/or other veterans. Some members discussed the loss of a in the community they knew well and the service they attended. [ ] substance use, including coping skills to maintain sobriety or address recent use [ ] managing PTSD symptoms [ ] specific resources [ ] anger management [ x ] aging related issues including memory/cognitive decline. Members provided one another with support and feedback. Next group will be 11/30/24 [place] reported he had stopped doing his daily walks for the last two months because of pain in his legs. He expressed a need to start this up again. /gio/ MANDY FLORES [facility] DIRECTOR Signed: 11/23/2024 16:23 MANDY FLORES [facility]
== END 2024-11-26 12:11 | disposition home or self-care (01) ==
PROVIDERS: PCP Internal Medicine; Visit Provider Urology
DX: R97.20 Elevated prostate specific antigen [PSA] (principal)
CPT/HCPCS: 99214

== ENCOUNTER → 2024-11-26 11:30 | Outpatient (BNVA) | payer OTHER, SELFPAY | PROVIDERS: PCP Internal Medicine; Visit Provider Urology | DX: R97.20 Elevated prostate specific antigen [PSA] (principal) | CPT/HCPCS: 99212 ==

== ENCOUNTER → 2024-12-03 08:41 | Outpatient (BNVA) | payer MEDICARE, SELFPAY | PROVIDERS: PCP Internal Medicine; Visit Provider Internal Medicine | DX: Z00.00 Encounter for general adult medical examination without abnormal findings (principal); E78.5 Hyperlipidemia, unspecified; I10 Essential (primary) hypertension | CPT/HCPCS: 96127; 99397 ==

== ENCOUNTER 2025-01-11 06:45 | Outpatient (REF) | payer OTHER, SELFPAY ==
[2025-01-11 08:01] LABS: PSA,Total (Free>4and<10) 9.11 ng/mL (0.00-4.00)
[2025-01-12 12:04] LABS: Free Prostate Spec Ag 0.5 ng/mL; Percent Free Prostate Spec Ag 6 % (calc) (>25)
== END 2025-01-11 06:46 | disposition home or self-care (01) ==
LOC: HO.LAB 06:45
PROVIDERS: PCP Physician Assistant; Visit Provider Urology
DX: E11.69 Type 2 diabetes mellitus with other specified complication (principal); N52.1 Erectile dysfunction due to diseases classified elsewhere; R97.20 Elevated prostate specific antigen [PSA]; Z12.5 Encounter for screening for malignant neoplasm of prostate
CPT/HCPCS: 36415; 84153; 84154

== ENCOUNTER → 2025-01-18 08:17 | Outpatient (BNV) | payer OTHER, SELFPAY | PROVIDERS: PCP Internal Medicine; Visit Provider Radiology Diagnostic Radiology | DX: R97.20 Elevated prostate specific antigen [PSA] (principal) | CPT/HCPCS: 72197 ==

== ENCOUNTER 2025-01-18 08:23 | Outpatient (REF) | payer OTHER, SELFPAY ==
--- NOTE | ~2025-01-18 | MR_ITS ---
EXAMINATION: MR PROSTATE WITHOUT THEN WITH IV CONTRAST HISTORY: R97.20 - Elevated prostate specific antigen [PSA] TECHNIQUE: 1.5T body coil survey of the pelvis was performed. Phase array coil imaging of the prostate was performed in multiplanar high resolution axial, coronal, sagittal fast spin echo T2 and axial T1 weighted imaging sequences. Axial diffusion imaging at intermediate and high field performed with ADC mapping. Next, 8.5 mL Gadavist was given by intravenous infusion, and dynamic axial imaging performed. COMPARISON: There are no prior studies for comparison. CLINICAL DATA: Most recent PSA: 9.11 ng/mL on 01/11/2025 PSA Density: 0.78 ng/mL squared Prostate Biopsy: None reported FINDINGS: Prostate size: 3.2 x 3.7 x 1.9 cm. Calculated prostate volume is 11.7 mL. Hemorrhage: None. Transitional Zone: Transitional zone is diminutive in size. The patient appears to be status post TURP. Peripheral Zone: There are areas of interest in the peripheral zone as described below: Lesion #1, measuring 5 mm in the right anterior peripheral zone at the apex, immediately adjacent to the urethra (series 7, image 23) with imaging characteristics as follows: DWI PI-RADS v2.1 score: 4 T2 PI-RADS v2.1 score: 4 DCE PI-RADS v2.1 score: + Overall PI-RADS v2.1 score: 4 Capsular contact: none Extracapsular extension: none Seminal vesicle invasion: none Neurovascular bundle involvement: none Lesion #2, measuring 8 mm in the left posterolateral peripheral zone in the mid gland (series 7, image 24) with imaging characteristics as follows: DWI PI-RADS v2.1 score: 4 T2 PI-RADS v2.1 score: 4 DCE PI-RADS v2.1 score: - Overall PI-RADS v2.1 score: 4 Capsular contact: yes Extracapsular extension: No definite Seminal vesicle invasion: none Neurovascular bundle involvement: No definite Seminal Vesicles/Ejaculatory Ducts: Symmetric and normal in signal and caliber. Pelvic Lymph Nodes: No obturator or internal iliac lymph nodes meeting size criteria for adenopathy. Marrow Signal: There is bone marrow edema and enhancement in the right hemisacrum which may represent an insufficiency fracture. The patient is status post right total hip arthroplasty. MR/MR Prostate wo/w con IMPRESSION: 1. Foci of abnormal signal intensity in the right anterior peripheral zone at the apex and in the left posterolateral peripheral zone in the mid gland as described, highly suspicious for clinically significant prostate carcinoma. 2. Bone marrow edema and enhancement in the right hemisacrum which may reflect an insufficiency fracture. CT or dedicated MRI of the sacrum is suggested. PI-RADS 4: High (clinically significant cancer is likely to be present) PI-RADS Assessment Categories PI-RADS 1: Very low (clinically significant cancer is highly unlikely to be present) PI-RADS 2: Low (clinically significant cancer is unlikely to be present) PI-RADS 3: Intermediate (the presence of clinically significant cancer is equivocal) PI-RADS 4: High (clinically significant cancer is likely to be present) PI-RADS 5: Very high (clinically significant cancer is highly likely to be present) [employer]. MR Prostate Imaging Reporting and Data System version 2.1. [email or web address].org/Quality-Safety/Resources/PIRADS/ Electronically signed by: Michael Abbott MD 01/18/2025 11:25 AM EDT
[2025-01-18] MEDS: gadobutroL 10 ML VIAL IVPUSH (09:37)
== END 2025-01-18 08:24 | disposition home or self-care (01) ==
LOC: HO.MRI 08:23
PROVIDERS: PCP Internal Medicine; Visit Provider Urology
DX: R97.20 Elevated prostate specific antigen [PSA] (principal)
CPT/HCPCS: 72197; A9585

== ENCOUNTER 2025-01-26 10:40 | Outpatient (AMB) | payer OTHER, SELFPAY ==
--- NOTE | 2025-01-26 11:10 | MHC.OFFVIS ---
Intake Visit Reasons: 2m/PSA/MRI(MRI?) Intake Note: Patient is present for 2M/PSA/MRI Urology Medication:NONE Antibiotic Allergy:NONE Blood Thinner:NONE Blocking Machine Operator Required: No Allergies bee pollen [BEE STINGS] Allergy (Mild, Verified 03/15/25 14:44) SWELLING SHELLFISH Allergy (Severe, Uncoded 03/15/25 14:44) SWELLING HPI Comments Details: Lynette is a pleasant male. He is a patient of Dr. Yarbrough. He is seen for the following urologic conditions - lower urinary tract symptoms Previous laser prostatectomy PSA jump Prostate MRI shows 2 x 8 mm lesions contained within the prostate PI-RADS 4 suspicious for prostate cancer Discussed options of treatment with finasteride versus prostate biopsy At this point in time he would like to start with finasteride 4 month follow-up PSA Lower urinary tract symptoms Prior laser prostatectomy 2018 Satisfied with current urinary parameters - Effective stream, good bladder emptying, does have nocturia 1-2 times but drinks liquid until 21:00 - cut back on tea PSA - 2019 2.6, 03/17 2.8, 05/18 3.2, 03/19 3.8, 11/21 7.3, 01/19 8.0 6% Therapeutic plan continue with yearly follow-up and PSA PFSH Medical History Hx of pancreatitis Hyperlipidemia HTN (hypertension) Surgical History Hx of colonoscopy History of arthroplasty of right hip History of rectal polypectomy History of tonsillectomy Family History Father Diabetes Hypertension Prostate cancer Mother Alzheimers disease Social History Housing: House Are you a primary long term care social worker to a significant other at home: No Do you presently have visiting nurse or other home services: No Alcohol intake: former Year quit: 2018 Patient Tobacco Use Status: Former Tobacco user Tobacco use type: Cigarette e-Cigarette/Vaping Use: Never Used Second Hand Smoke Exposure: No service: Yes Current occupational status: retired Cognitive needs: No Hearing needs: Yes (hearing aides) Vision needs: Yes (glasses) Review of Systems Const Denies chills and Denies fever(s) Card Reports no additional complaints and Denies syncope Resp Denies cough GI Denies abdominal pain and Denies heartburn Reports as per HPI and Denies change in libido Neuro Denies syncope Psych Denies change in libido Endo Denies change in libido Physical Exam Const General: cooperative, healthy appearing, comfortable and no acute distress Orientation/consciousness: patient oriented x3 HEENT Face and sinus: Yes normal facial exam Mouth: moist mucous membranes Neck Neck: Yes normal visual inspection, Yes full ROM and Yes trachea midline Chest Chest palpation & inspection: normal inspection of the chest Resp Effort & Inspection: normal respiratory effort, able to speak in complete sentences and no respiratory distress GI Inspection: Yes normal to inspection Back/Spine/Pelvis Cervical Spine: normal cervical lordosis Thoracic/Lumbar Spine: thoracic and lumbar spine normal to inspection Skin General skin exam: no rashes or lesions noted Neuro General: patient oriented x3, gait normal, tone normal and moves all extremities Extrem General: Yes normal to inspection and Yes capillary refill normal Assessment & Plan Assessment & Plan (1) BPH w urinary obs/LUTS: Code(s): N40.1 - Benign prostatic hyperplasia with lower urinary tract symptoms; N13.8 - Other obstructive and reflux uropathy Category: Medical (2) Elevated PSA: Code(s): R97.20 - Elevated prostate specific antigen [PSA] Category: Medical Plan Four-month follow-up repeat PSA on finasteride Orders: Orders PSA,Total (Free>4and<10) 4 Months R97.20 - Elevated prostate specific antigen [PSA] Testosterone, Total 4 Months R97.20 - Elevated prostate specific antigen [PSA] Medications: New finasteride 5 mg PO DAILY 90 tabs 1RF 90 days R97.20 - Elevated prostate specific antigen [PSA], N40.1 - Benign prostatic hyperplasia with lower urinary tract symptoms, N13.8 - Other obstructive and reflux uropathy, R33.9 - Retention of urine, unspecified Patient Instructions: This note is constructed using voice recognition software. While every effort has been made to ensure accuracy frame runner errors may have been included. Imaging studies, laboratory and physical exam results were discussed and reviewed in detail. No major barriers to patient understanding were identified. An opportunity to ask questions regarding the treatment plan was provided. All questions were answered. The patient expressed understanding and agreement with the above treatment plan. The patient is aware they should contact our office by phone for worsening of their current condition or the appearance of new urologic symptoms. Compliance is encouraged with any medications and followup testing that is ordered. It is a privilege to participate in the urologic care of your patient. If you have any questions or concerns regarding treatment for the above conditions, or other urologic issues, please do not hesitate to contact me. The office telephone contact is [phone]. Sincerely, Dr Matthias Gray MD, L[facility] - Urology Compassionate Specialist Care for the Genitourinary System Coding Level of Care Code Est Pt Level 4 (44872) Complex EM visit Add On G2211 Diagnoses BPH w urinary obs/LUTS N40.1; N13.8 Elevated PSA R97.20
--- OUTSIDE RECORDS SUMMARY | 2025-01-26 12:45 | XMS_ITS | Patient Health Record ---
Author Organization [facility] [place] Address [address] [place] [address] Care Team Providers Care Clinical Microbiologist Name Role Phone Kleber Billy MD Primary Care Provider Osman Rowell Unavailable [phone] Allergies Allergen (clinical drug ingredient) Drug/Non Drug [...] W/U Status Risk Notes Problem Atherosclerosis of kiana arteries of the extremities ([id number]) Atherosclerosis of kiana artery of both lower extremities, with unspecified presence of clinical manifestation (I70.203) Active confirmed Vital Signs Blood pressure diastolic 80 mm Hg 07/28/2024 Height 6ft 2in in 07/28/2024 Blood pressure systolic 120 mm Hg 07/28/2024 Weight 186 lbs 07/28/2024 BMI 23.88 kg/m2 07/28/2024 Procedures Procedure Date Ordered Date Performed Result Body Sit e 51252-TBVXXMU NAIL, 6 OR MORE 01/31/2024 N/A 18775-JHRQ SKIN LESIONS, OVER 4 01/31/2024 N/A 34988-HFRCQSF NAIL, 6 OR MORE 05/05/2024 N/A 04488-ZCEF SKIN LESIONS, OVER 4 05/05/2024 N/A 29624-YOWKYUL NAIL, 6 OR MORE 07/28/2024 N/A 55468-DVDD SKIN LESIONS, OVER 4 07/28/2024 N/A 03884-LXOQCIA NAIL, 6 OR MORE 11/03/2024 N/A 94545-PXEA SKIN LESIONS, OVER 4 11/03/2024 N/A Encounters Encounter Location Date Provider Diagnosis [address] [address] 01/31/2024 Osman Blanc Atherosclerosis of kiana artery of both lower extremities, with unspecified presence of clinical manifestation I70.203 ; Tinea unguium B35.1 ; Pain in right toe(s) M79.674 ; Pain in left toe(s) M79.675 and Xerosis of skin L85.[address] [address] 05/05/2024 Osman Blanc Atherosclerosis of kiana artery of both lower extremities, with unspecified presence of clinical manifestation I70.203 ; Tinea unguium B35.1 ; Pain in right toe(s) M79.674 ; Pain in left toe(s) M79.675 and Xerosis of skin L85.[address] [address] 07/28/2024 Osmansergio Blanc Atherosclerosis of kiana artery of both lower extremities, with unspecified presence of clinical manifestation I70.203 ; Tinea unguium B35.1 ; Pain in right toe(s) M79.674 and Pain in left toe(s) M79.675 [facility] [address] [address] 11/03/2024 Osman Blanc Atherosclerosis of kiana artery of both lower extremities, with unspecified presence of clinical manifestation I70.203 ; Tinea unguium B35.1 ; Pain in right toe(s) M79.674 and Pain in left toe(s) M79.675 Assessments Encounter Date Diagnosis (ICD Code) Assessment Notes Treatment Notes Treatment Clinical Notes Section Notes 01/31/2024 Tinea unguium (ICD-10 - B35.1) 01/31/2024 Atherosclerosis of kiana artery of both lower extremities, with unspecified presence of clinical manifestation (ICD-10 - I70.203) 05/05/2024 Tinea unguium (ICD-10 - B35.1) 05/05/2024 Atherosclerosis of kiana artery of both lower extremities, with unspecified presence of clinical manifestation (ICD-10 - I70.203) 07/28/2024 Tinea unguium (ICD-10 - B35.1) 07/28/2024 Atherosclerosis of kiana artery of both lower extremities, with unspecified presence of clinical manifestation (ICD-10 - I70.203) 11/03/2024 Tinea unguium (ICD-10 - B35.1) 11/03/2024 Atherosclerosis of kiana artery of both lower extremities, with unspecified [...] Treatment Pending Test Test Name Order Date 27347-FVQZPYC NAIL, 6 OR MORE 04/10/2022 59019-VSMCQST NAIL, 6 OR MORE 07/10/2022 36613-FGIOJCC NAIL, 6 OR MORE 10/12/2022 39833-XYIFCTI NAIL, 6 OR MORE 01/25/2023 12876-RFLSZQD NAIL, 6 OR MORE 04/23/2023 54447-HGCNWAT NAIL, 6 OR MORE 07/26/2023 00186-NCEWNKR NAIL, 6 OR MORE 11/01/2023 32910-HRWVNKJ NAIL, 6 OR MORE 01/31/2024 50660-XLEPGTY NAIL, 6 OR MORE 05/05/2024 74837-MNYHYGY NAIL, 6 OR MORE 07/28/2024 46277-ILUCPUM NAIL, 6 OR MORE 11/03/2024 92580-NXTY SKIN LESIONS, OVER 4 11/03/19 25 01026-IYRA SKIN LESIONS, OVER 4 07/28/20 24 54518-KOGY SKIN LESIONS, OVER 4 05/05/20 24 39804-NOSJ SKIN LESIONS, OVER 4 01/31/20 24 35327-MLDC SKIN LESIONS, OVER 4 11/01/19 24 45785-SLMF SKIN LESIONS, OVER 4 07/26/20 23 21608-MNES SKIN LESIONS, OVER 4 04/23/20 23 45380-NWPJ SKIN LESIONS, OVER 4 01/26/20 23 49064-CIAP SKIN LESIONS, OVER 4 10/12/20 22 54218-EFRH SKIN LESIONS, OVER 4 07/10/20 22 67816-GDEN SKIN LESIONS, OVER 4 04/10/20 22 Next Appt Details Provider Name:Osman Blanc , 02/02/2025 09:00:00 AM, [address] [place] [address], [place], [address], Insurance Providers Payer Name Payer Address Payer Phone Subscriber Number Group Number Insured Name Patient Relationship to Insured Coverage Start Date Coverage End Date [employer] Medicare Adv-[id number] [address] [address] [place] [address] [id number] Lynette Sanchez Self - patient is the insured Medical (General) History Medical History History ICD Code high blood pressure measles chicken pox bone implants Joint implants/screws Cholesterol Surgical History Surgery Date(Month/Year) right hip surgery 07/2015 Hospitalization History Reason Date(Month/Year) [facility]- Unknown Headache Ede natalie for 5 days same day took off med simvastatin 12/25/22
--- OUTSIDE RECORDS SUMMARY | 2025-01-26 12:45 | XMS_ITS ---
Author Organization [facility] Address [address] [place] [address] Care Team Providers Care Business Analysis Specialist Name Role Phone Kleber Billy MD Primary Care Provider Unavaila Osman Velazco Unavailable [phone] Allergies Allergen (clinical drug ingredient) Drug/Non Drug [...] Ordered Date Performed Result Body Sit e 31836-RZFIOUU NAIL, 6 OR MORE 07/28/2024 N/A 67298-UARI SKIN LESIONS, OVER 4 07/28/2024 N/A Encounters Encounter [facility] Date [facility] [address] [place] [address] 07/28/2024 Osman Blanc Atherosclerosis of jamul artery of both lower extremities, with unspecified presence of clinical manifestation I70.203 ; Tinea unguium B35.1 ; Pain in right toe(s) M79.674 and Pain in left toe(s) M79.675 Assessments Encounter Date Diagnosis (ICD Code) Assessment Notes Treatment Notes Treatment Clinical Notes Section Notes 07/28/2024 Atherosclerosis of jamul artery of both lower extremities, with unspecified presence of clinical manifestation (ICD-10 - I70.203) 07/28/2024 Tinea unguium (ICD-10 - B35.1) 07/28/2024 Pain in right toe(s) (ICD-10 - M79.674) 07/28/2024 Pain in left toe(s) (ICD-10 - M79.675) Plan Of Treatment Pending Test Test Name Order Date 62004-NNPBHWW NAIL, 6 OR MORE 07/28/2024 99526-ECRB SKIN LESIONS, OVER 4 07/28/20 24 Next Appt Details Follow Up: prn, Reason: Provider Name:Osman Blanc , 02/02/2025 09:00:00 AM, [address] [place] [address], [place], [address], Procedure Notes * Category Sub-Category Detail Notes [...] The patient chooses, no pharmaceutical tx - 44191 Keratoma Treatment Parring or Cutting o f Benign Hyperkeratotic Lesion(s) (-57) More than 4 Lesions - The Benign hyperkeratotic lesions, as described above were pared, and/or cut utilizing a sterile 15 blade, tissue nippers, and/or dremel - 66116 , Q8 Progress Notes * Lynette SANCHEZ JrDOB:[birth year] (74 yo M)Acc No.[id number]:07/28/2024 Progress Note Patient:Lynette Guzman Provider:?Osman Blanc DPM :1950???Age:74 Y???Sex:Male Praveen e:07/28/2024 Address:[facility] [place], [id number] Pcp:Kleber Billy MD Subjective: * Chief Complaints: [...] hip surgery 07/2015 * Hospitalization/Major Diagno stic Procedure:?[facility]- Unknown Headache Migraine for 5 days [...] Assessment: 1.?Tinea unguium - B35.1?2.? Atherosclerosis of jamul artery of both lower extremities, with unspecified presence of clinical manifestation - I70.203 (Primary)?3.?Pain in right toe(s) - M79.674?4.?Pain in left toe(s) - M79.675? Plan: * Treatment: 2.?Tinea unguium?Procedure: 93385-WIGCLYG NAIL, 6 OR MORE * Procedures:?Debride Nail [...] The patient chooses, no pharmaceutical tx - 98933.?Keratoma Treatment:?Parring or Cutting of Benign Hyperkeratotic Lesion(s)?(-57) More than 4 Lesions - The Benign hyperkeratotic lesions, as described above were pared, and/or cut utilizing a sterile 15 blade, tissue nippers, and/or dremel - 88117 , Q8.? * Procedure Codes:?98677 DEBRI DE NAIL, 6 OR MORE, Modifiers: XS 54418 TRIM SKIN LESIONS, OVER 4, Modifiers: XS , Q8 * Follow Up:?prn * Images: * Sign off status: Completed true * Provider:?Osman Blanc DPM Date:?2023 Generated for Ally gomez/Leann/Maryjane on:?01/26/2025 12:44 PM EDT History and Physical Notes * HPI (History [...]
--- OUTSIDE RECORDS SUMMARY | 2025-01-26 12:45 | XMS_ITS ---
[facility] Address [address] [facility] [place] [address] Care Team Providers Care Surgery Assistant Name Role Phone Kleber Billy MD Primary Care Provider Unavaila Osman Velazco Unavailable [phone] Allergies Allergen (clinical drug ingredient) Drug/Non Drug [...] Ordered Date Performed Result Body Sit e 21792-YJVRJXE NAIL, 6 OR MORE 05/05/2024 N/A 42786-ZVKW SKIN LESIONS, OVER 4 05/05/2024 N/A Encounters Encounter Location Date Provider Diagnosis [facility] [address] [place] [address] 05/05/2024 Osman Blanc Atherosclerosis of [place] artery of both lower extremities, with unspecified presence of clinical manifestation I70.203 ; Tinea unguium B35.1 ; Pain in right toe(s) M79.674 ; Pain in left toe(s) M79.675 and Xerosis of skin L85.3 Assessments Encounter Date Diagnosis (ICD Code) Assessment Notes Treatment Notes Treatment Clinical Notes Section Notes 05/05/2024 Atherosclerosis of [place] artery of both lower extremities, with unspecified presence of clinical manifestation (ICD-10 - I70.203) 05/05/2024 Tinea unguium (ICD-10 - B35.1) 05/05/2024 Pain in right toe(s) (ICD-10 - M79.674) 05/05/2024 Pain in left toe(s) (ICD-10 - M79.675) 05/05/2024 Xerosis of skin (ICD-10 - L85.3) Plan Of Treatment Pending Test Test Name Order Date [id number] NAIL, 6 OR MORE 05/05/2024 19089-RHVB SKIN LESIONS, OVER 4 05/05/20 24 Next Appt Details Follow Up: prn, Reason: Provider Name:Osman Blanc , 02/02/2025 09:00:00 AM, [address] [place] [address], [id number], Procedure Notes * Category Sub-Category Detail Notes [...] as necessary. Patient chooses, no pharmaceutical tx (53178) Keratoma Treatment Parring or Cutting o f Benign Hyperkeratotic Lesion(s) 35394 ( >4 Lesions) - The Benign hyperkeratotic lesions, as described above were pared, and/or cut utilizing a sterile #15 blade, tissue nippers, and/or dremel, Q8 Progress Notes * Lynette SANCHEZ JrDOB:[birth year] (74 yo M)Acc No.[id number]:05/05/2024 Progress Note Patient:?Lynette SANCHEZ Jr Provider:?Osman Blanc DPM :1950???Age:73 Y???Sex:Male Praveen e:05/05/2024 Address:[address] [place] [address] [id number] Pcp:Kleber Billy MD Subjective: * Chief Complaints: [...] hip surgery 07/2015 * Hospitalization/Major Diagno stic Procedure:?[facility] [place]- Unknown Headache Migraine for [...] Assessment: 1.?Tinea unguium - B35.1???2 .?Atherosclerosis of [place] artery of both lower extremities, with unspecified presence of clinical manifestation - I70.203 (Primary)???3.?Pain in right toe(s) - M79.674???4.?Pain in left toe(s) - M79.675 ??5.?Xerosis of skin - L85.3???Specify :Acute problem, Stable (1=3),Response to treatment - Improvement??? Plan: * Treatment: 2.?Tinea unguium?Procedure: 59214-NYXZCZZ NAIL, 6 OR MORE * Procedures:?Debride Nail 6-10:?Nail debridement?Nail debridement performed extensively to reduce/remove overall nail length, girth, thickness, subungual debris, and necrotic tissue, by manual and electrical means through the use of a nail nipper and/or dremel, to more viable healthy nail plate or bed tissue 1-5. Silver nitrate used for any petechial bleeding as necessary. Patient chooses, no pharmaceutical tx (82030).?Keratoma Treatment:?Parring or Cutting of Benign Hyperkeratotic Lesion(s)?69281 ( >4 Lesions) - The Benign hyperkeratotic lesions, as described above were pared, and/or cut utilizing a sterile #15 blade, tissue nippers, and/or dremel, Q8.? * Procedure Codes:?86281 DEBRI DE NAIL, 6 OR MORE, Modifiers: XS 44310 TRIM SKIN LESIONS, OVER 4, Modifiers: XS [...] DPM Date:?2023 Generated for Ally gomez/Leann/Maryjane on:?01/26/2025 12:45 PM EDT History and Physical Notes * [...]
--- OUTSIDE RECORDS SUMMARY | 2025-01-26 12:46 | XMS_ITS | Continuity of Care Document ---
Author Name [facility] Organization [facility] Care Team Providers Care Non Destructive Evaluation Manager Name Role Phone [facility] Unavailable Unavailable Problems Combined list of problems from Department of Defense and Veterans Affairs facilities. It does not include entries that were removed or entered in error. Problem Status Onset Date Problem Type Date of Resolution Comments Source Anaphylactic reaction Active Condition [facility] Ascending aorta dilatation Active Condition Jan 10, 2025 Entered By: NADIA DHALIWAL Comment: 4.1cm on CT 12/2024 [facility] Bilateral hearing [...] 17, 2019 Entered By: KELLY SANDERS Comment: ReviewedNov 07, 2021 Entered By: TONI WIGGINS Comment: [...] DHALIWAL Comment: On chest CT 07/2022 [facility] Exposure to potentially hazardous substance (SCT [id number]) Active Condition March 27 Entered By: ALIS JACOBO Comment: Entered automatically through JULIET Problem List documentation program [facility] Hyperlipidemia Active Condition [facility] Hypertension Active Condition [facility] Prostate Specific Antigen Above Reference Range (SCT [id number]) Active Condition Sep 08, 2024 Entered By: YANETH JOE Comment: 8.8, referred back to Dr. Matthias Gray, +family h/o prostate ca- father, +AO exposure [facility] Diagnosis: ICD-10-CM F43.10 Post-traumatic stress disorder, unspecified Active Diagnosis [facility] Diagnosis: ICD-10-CM K03.6 Deposits [accretions] on teeth Active Diagnosis [facility] Diagnosis: ICD-10-CM F43.12 Post-traumatic stress disorder, chronic Active Diagnosis [facility] Diagnosis: ICD-10-CM R97.20 Elevated prostate specific antigen [PSA] Active Diagnosis [facility] Diagnosis: ICD-10-CM Z46.1 Encounter for fitting and adjustment of hearing aid Active Diagnosis [facility] Diagnosis: ICD-10-CM F10.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, in remission Active Diagnosis [facility] Diagnosis: ICD-10-CM 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, unspecified site Active Diagnosis [facility] Diagnosis: ICD-10-CM K08.9 Disorder of teeth and supporting structures, unspecified Active Diagnosis [facility] Diagnosis: ICD-10-CM Z01.30 Encounter for exam of blood pressure w/o abnormal findings Active Diagnosis [facility] Medications Combined list of outpatient medications from [...] TAKE WITH GRAPEFRU IT JUICE ORAL ACTIVE 12/16/2025 [id number] FURCOLO,T TITO 2024 90 [facility] AMLODIPINE BESYLATE 5MG TAB TAKE ONE TABLET BY MOUTH ONCE DAILY FOR BLOOD PRESSURE /HEART, DO NOT TAKE WITH GRAPEFRU IT JUICE ORAL DISCONT INUED 12/17/2024 [id number] MI DODD JAWED 2023 90 [facility] [place] BENAZEPRIL HCL 20MG TAB TAKE ONE TABLET BY MOUTH EVERY MORNING ORAL ACTIVE PETROFF,S UANNE 2017 [facility] EPINEPHRINE (EQV-EPI PEN) 0.3ML/0.3ML INJ,SOLN INJECT INTRAMUS CULARLY INTRAM USCULA R ACTIVE PETROFF,S UANNE 2017 [facility] EPINEPHRINE (EQV-EPI-PE N) 0.3MG/0.3ML INJECTOR INJECT DIRECTED INTRAMUS CULARLY ONCE DAILY NEEDED FOR LIFE THREATEN ING ALLERGIC REACTION INTRAM USCULA R ACTIVE 03/10/2025 [id number] FURCOLO,T TITO 2023 2 [facility] [place] FEXOFENADIN E HCL 180MG TAB TAKE ONE TABLET BY MOUTH ONCE DAILY ORAL ACTIVE LI ZACARIAS 2020 [facility] [place] PRAZOSIN HCL 2MG CAP TAKE ONE CAPSULE BY MOUTH AT BEDTIME FOR NIGHTMAR ES ORAL ACTIVE 09/09/2025 [id number] TONI WIGGINS 2024 90 [facility] [place] PRAZOSIN HCL 2MG CAP TAKE ONE CAPSULE BY MOUTH AT BEDTIME FOR NIGHTMAR ES ORAL DISCONT INUED 03/27/2025 [id number] TONI WIGGINS 2023 90 [facility] [place] PRAZOSIN HCL 2MG CAP TAKE ONE CAPSULE BY MOUTH AT BEDTIME ORAL DISCONT INUED 10/24/2024 [id number] TONI WIGGINS 2022 90 [facility] ROSUVASTATI N CA 20MG TAB TAKE ONE TABLET BY MOUTH ONCE DAILY FOR CHOLESTE ROL ORAL ACTIVE 03/10/2025 [id number] Clay JOE TITO 2023 90 [facility] ROSUVASTATI N CA 20MG TAB TAKE ONE TABLET BY MOUTH ONCE DAILY FOR CHOLESTE ROL ORAL DISCONT INUED 03/18/2024 [id number] MI DODD AMMED JAWED 2022 90 [facility] SODIUM FLUORIDE 1.1% TOOTHPASTE BRUSH SMALL AMOUNT TO TEETH TWICE DAILY FOR TOOTH DECAY PREVENTI ON DENTAL ACTIVE 10/01/2025 [id number] 4 CARLOS SOUTH 2023 204 [facility] [place] SODIUM FLUORIDE 1.1% TOOTHPASTE BRUSH SMALL AMOUNT TO TEETH TWICE DAILY FOR TOOTH DECAY PREVENTI ON DENTAL 08/09/2024 [id number] CARLOS S[place]TH 2022 204 [facility] Allergies, Adverse Reactions, Alerts [...] adverse reactions to food (finding) active 8 [facility] [place] [facility] Immunizations Combined list of available immunizations from the Department of Defense and Veterans Affairs facilities. Immunization Series Date Given Administered By Site Reaction Lot Number CVX Code Drug Death Claim Clerk Status Comments Source INFLUENZA, UNSPECIFIED FORMULATION 2023 88 complet ed [facility] INFLUENZA, UNSPECIFIED FORMULATION 2022 88 complet ed [facility] [place] [facility] COVID-19 (MODERNA), MRNA, LNP-S, PF, 50 MCG/0.5 ML (AGES 12+ YEARS) 1 2022 312 complet ed [facility] [place] [facility] INFLUENZA, INJECTABLE, QUADRIVALENT, PRESERVATIVE FREE 2021 150 complet ed [facility] PNEUMOCOCCAL CONJUGATE PCV20, POLYSACCHARID E [id number] CONJUGATE, ADJUVANT, PF 2021 216 complet ed [facility] COVID-19 (MODERNA), MRNA, LNP-S, PF, 100 MCG/0.5ML DOSE OR 50 MCG/0.25ML DOSE 3 2021 207 complet ed MOD; [id number]; 2 [facility] COVID-19 (MODERNA), MRNA, LNP-S, PF, 100 MCG/0.5 ML DOSE 3 2020 207 complet ed [id number] 09/09/21 @ 1915 [facility] INFLUENZA, UNSPECIFIED FORMULATION 2020 88 complet ed [facility] COVID-19 (MODERNA), MRNA, LNP-S, PF, 100 MCG/0.5 ML DOSE 2 2020 207 complet ed MOD; [id number]; 1 [facility] COVID-19 (MODERNA), MRNA, LNP-S, PF, 100 MCG/0.5 ML DOSE 1 2020 207 complet ed MOD; [id number]; 1 [facility] [...] 2016 141 complet ed [id number] 65+ Lot: [id number] [facility] INFLUENZA, [...] March 09, 2024 09:50 AM Reporting Lab: [facility] [place] [facility] [address] [facility] [address] Performing Lab: [facility] [place] [facility] [address] [facility] [address] [facility] [place] [facility] BASIC METABOLIC PANEL (non-fast ing) UREA NITROGEN [MASS/VOLUM E] IN SERUM OR PLASMA 16 mg/dL 7 - 25 08/31 Specimen Type: SERUM No comment entered. Ordering Provider: KARTHIKEYAN JOE Report Released Date/Time: March 09, 2024 09:50 AM Reporting Lab: [address] [address] Performing Lab: [address] [address] [facility] BASIC METABOLIC PANEL (non-fast ing) GLUCOSE [MASS/VOLUM E] IN SERUM OR PLASMA 106 mg/dL 65 - 100 08/31 H Specimen Type: SERUM No comment entered. Ordering Provider: KARTHIKEYAN JOE Report Released Date/Time: March 09, 2024 09:50 AM Reporting Lab: [address] [address] Performing Lab: [address] [address] [facility] BASIC METABOLIC PANEL (non-fast ing) SODIUM [MOLES/VOLU ME] IN SERUM OR PLASMA 139 mmol/L 135 - 145 08/31 Specimen Type: SERUM No comment entered. Ordering Provider: KARTHIKEYAN JOE Report Released Date/Time: March 09, 2024 09:50 AM Reporting Lab: [address] [address] Performing Lab: [address] [address] [facility] BASIC METABOLIC PANEL (non-fast ing) POTASSIUM [MOLES/VOLU ME] IN SERUM OR PLASMA 3.9 mmol/L 3.5 - 5.0 08/31 Specimen Type: SERUM No comment entered. Ordering Provider: KARTHIKEYAN JOE Report Released Date/Time: March 09, 2024 09:50 AM Reporting Lab: [address] [address] Performing Lab: [address] [address] [facility] BASIC METABOLIC PANEL (non-fast ing) CHLORIDE [MOLES/VOLU ME] IN SERUM OR PLASMA 105 mmol/L 100 - 110 08/31 Specimen Type: SERUM No comment entered. Ordering Provider: KARTHIKEYAN JOE Report Released Date/Time: March 09, 2024 09:50 AM Reporting Lab: [facility] [address] [address] Performing Lab: [facility] [address] [address] [facility] BASIC METABOLIC PANEL (non-fast ing) CARBON DIOXIDE, TOTAL [MOLES/VOLU ME] IN SERUM OR PLASMA 25 meq/L 20 - 30 08/31 Specimen Type: SERUM No comment entered. Ordering Provider: KARTHIKEYAN JOE Report Released Date/Time: March 09, 2024 09:50 AM Reporting Lab: [facility] [address] [address] Performing Lab: [address] [address] [facility] BASIC METABOLIC PANEL (non-fast ing) CREATININE [MASS/VOLUM E] IN SERUM OR PLASMA 1.17 mg/dL 0.50 - 1.40 08/31 Specimen Type: SERUM No comment entered. Ordering Provider: KARTHIKEYAN JOE Report Released Date/Time: March 09, 2024 09:50 AM Reporting Lab: [facility] [address] [address] Performing Lab: [facility] [address] [address] [facility] BASIC METABOLIC PANEL (non-fast ing) GLOMERULAR FILTRATION RATE/1.73 SQ M.PREDICTED [VOLUME RATE/AREA] IN SERUM, PLASMA OR BLOOD BY CREATININE- BASED FORMULA (CKD-EPI 2020) 65 mL/min 60 08/31 Specimen Type: SERUM No comment entered. Ordering Provider: KARTHIKEYAN JOE Report Released Date/Time: March 09, 2024 09:50 AM Reporting Lab: [facility] [place] [facility] [address] [facility] [address] Performing Lab: [facility] [place] [facility] [address] [facility] [address] [facility] [place] [facility] LIPID PANEL, NON FASTING CHOLESTEROL [MASS/VOLUM E] IN SERUM OR PLASMA 190 mg/dL 03/03 Specimen Type: SERUM No comment entered. Ordering Provider: KARTHIKEYAN JOE Report Released Date/Time: February 28, 2024 10:29 AM Reporting Lab: [facility] [place] [facility] [address] [facility] [address] Performing Lab: [facility] W[facility]N [facility] [address] [facility] [address] [facility] TRN [facility]USE [facility] LIPID PANEL, NON FASTING TRIGLYCERID E [MASS/VOLUM E] IN SERUM OR PLASMA 68 mg/dL 0 - 150 03/03 Specimen Type: SERUM No comment entered. Ordering Provider: KARTHIKEYAN JOE Report Released Date/Time: February 28, 2024 10:29 AM Reporting Lab: [facility] [place] [facility] [address] [facility] [address] Performing Lab: [facility] [place] [facility] [address] [facility] [address] [facility] TRN [facility] LIPID PANEL, NON FASTING CHOLESTEROL IN LDL [MASS/VOLUM E] IN SERUM OR PLASMA BY CALCULATION 102 mg/dL 0 - 129 03/03 Specimen Type: SERUM No comment entered. Ordering Provider: KARTHIKEYAN JOE Report Released Date/Time: February 28, 2024 10:29 AM Reporting Lab: [facility] [place] [facility] [address] [facility] [address] Performing Lab: [facility] [place] [facility] [address] [facility] [address] [facility] TRN [facility] LIPID PANEL, NON FASTING CHOLESTEROL .TOTAL/CHOL ESTEROL IN HDL [MASS RATIO] IN SERUM OR PLASMA 2.6 03/03 Specimen Type: SERUM No comment entered. Ordering Provider: KARTHIKEYAN JOE Report Released Date/Time: February 28, 2024 10:29 AM Reporting Lab: [facility] [place] [facility] [address] [facility] [address] Performing Lab: [facility] [place] [facility] [address] [facility] [address] [facility] [place] [facility] LIPID PANEL, NON FASTING CHOLESTEROL IN HDL [MASS/VOLUM E] IN SERUM OR PLASMA 74 mg/dL 40 - 60 03/03 H Specimen Type: SERUM No comment entered. Ordering Provider: KARTHIKEYAN JOE Report Released Date/Time: February 28, 2024 10:29 AM Reporting Lab: [facility] [place] [facility] [address] [facility] [address] Performing Lab: [facility] [address] [facility] [address] [facility]ITALRCR[facility]N [facility]USE [facility] BASIC METABOLIC PANEL (non-fast ing) UREA NITROGEN [MASS/VOLUM E] IN SERUM OR PLASMA 20 mg/dL 7 - 25 03/03 Specimen Type: SERUM No comment entered. Ordering Provider: KARTHIKEYAN JOE Report Released Date/Time: February 28, 2024 10:29 AM Reporting Lab: [facility] [place] [facility] [address] [facility] [address] Performing Lab: [place] [facility] [address] [facility] [address] [facility] BASIC METABOLIC PANEL (non-fast ing) GLUCOSE [MASS/VOLUM E] IN SERUM OR PLASMA 105 mg/dL 65 - 100 03/03 H Specimen Type: SERUM No comment entered. Ordering Provider: KARTHIKEYAN JOE Report Released Date/Time: February 28, 2024 10:29 AM Reporting Lab: [facility] [place] [facility] [address] [facility] [address] Performing Lab: [facility] [place] [facility] [address] [facility] [address] [facility] [place] [facility] BASIC METABOLIC PANEL (non-fast ing) SODIUM [MOLES/VOLU ME] IN SERUM OR PLASMA 143 mmol/L 135 - 145 03/03 Specimen Type: SERUM No comment entered. Ordering Provider: KARTHIKEYAN JOE Report Released Date/Time: February 28, 2024 10:29 AM Reporting Lab: [facility]ITALRELBA GENERAL HOSPITALTRN [facility]ENTERUSE[address] [address] Performing Lab: [facility]ITALRCROSSBRID[facility]IOR[facility] HEALTHN [address] [address] [facility] BASIC METABOLIC PANEL (non-fast ing) POTASSIUM [MOLES/VOLU ME] IN SERUM OR PLASMA 4.6 mmol/L 3.5 - 5.0 03/03 Specimen Type: SERUM No comment entered. Ordering Provider: KARTHIKEYAN JOE Report Released Date/Time: February 28, 2024 10:29 AM Reporting Lab: [facility] [address] [address] Performing Lab: [facility]ITALRCROSSBRID[facility]IOR[facility] HEALTHN [facility]ENTERUSE[address] [address] [facility] BASIC METABOLIC PANEL (non-fast ing) CHLORIDE [MOLES/VOLU ME] IN SERUM OR PLASMA 107 mmol/L 100 - 110 03/03 Specimen Type: SERUM No comment entered. Ordering Provider: KARTHIKEYAN JOE Report Released Date/Time: February 28, 2024 10:29 AM Reporting Lab: [facility]ITALRCROSSBRID[facility]IOR[facility] HEALTHN [address] [address] Performing Lab: [facility]PITALRELBA GENERAL HOSPITALTRN [facility]ENTERUSE[address] [address] [facility]USE [facility] BASIC METABOLIC PANEL (non-fast ing) CARBON DIOXIDE, TOTAL [MOLES/VOLU ME] IN SERUM OR PLASMA 26 meq/L 20 - 30 03/03 Specimen Type: SERUM No comment entered. Ordering Provider: KARTHIKEYAN JOE Report Released Date/Time: February 28, 2024 10:29 AM Reporting Lab: [facility]OS[facility]ITALRCROSSBRIDGE BEH[facility]IORAL HEALTHN [facility]ENTERUSE[address] [address] Performing Lab: [facility]ITALRCROSSBRIDGE BEH[facility]IORAL HEALTHN [facility]ENTERUSETS [facility] [address] [facility] [address] [facility]RL WSTRN [facility]ENTERUSE [facility] BASIC METABOLIC PANEL (non-fast ing) CREATININE [MASS/VOLUM E] IN SERUM OR PLASMA 1.16 mg/dL 0.50 - 1.40 03/03 Specimen Type: SERUM No comment entered. Ordering Provider: KARTHIKEYAN JOE Report Released Date/Time: February 28, 2024 10:29 AM Reporting Lab: [facility]ITALRL [facility]N [place] [facility] [address] [facility] [address] Performing Lab: [facility]RL WSTRN [facility]ENTERUSETS [facility] [address] [facility] [address] [facility]ITALRL [facility]ERN [facility]ENTERUSE [facility] BASIC METABOLIC PANEL (non-fast ing) GLOMERULAR FILTRATION RATE/1.73 SQ M.PREDICTED [VOLUME RATE/AREA] IN SERUM, PLASMA OR BLOOD BY CREATININE- BASED FORMULA (CKD-EPI 2020) 65 mL/min 60 03/03 Specimen Type: SERUM No comment entered. Ordering Provider: KARTHIKEYAN JOE Report Released Date/Time: February 28, 2024 10:29 AM Reporting Lab: [facility]OS[facility]ITALRL TRN [facility] CENTERUSETS [address] [address] Performing Lab: [facility]ITALRL WSTRN [facility]ENTERUSE[address] [address] [facility] LIPID PANEL FASTING CHOLESTEROL [MASS/VOLUM E] IN SERUM OR PLASMA 215 mg/dL 09/23 H Specimen Type: SERUM No comment entered. Ordering Provider: KENAN DODD Report Released Date/Time: Sep 09, 2023 03:28 PM Reporting Lab: [facility]ITALRL [facility]N [place] [facility] [address] [facility] [address] Performing Lab: [facility]ITALRL WSTRN [facility] CENTERUSETS [address] [address] [facility] LIPID PANEL FASTING TRIGLYCERID E [MASS/VOLUM E] IN SERUM OR PLASMA 66 mg/dL 0 - 150 09/23 Specimen Type: SERUM No comment entered. Ordering Provider: KENAN DODD Report Released Date/Time: Sep 09, 2023 03:28 PM Reporting Lab: [facility] [place] [facility] [address] [facility] [address] Performing Lab: [facility] [place] [facility] [address] [facility] [address] [facility] [place] [facility] LIPID PANEL FASTING CHOLESTEROL IN LDL [MASS/VOLUM E] IN SERUM OR PLASMA BY CALCULATION 125.8 mg/dL 0 - 129 09/23 Specimen Type: SERUM No comment entered. Ordering Provider: KENAN DODD Report Released Date/Time: Sep 09, 2023 03:28 PM Reporting Lab: [facility] [place] [facility] [address] [facility] [address] Performing Lab: [facility] [place] [facility] [address] [facility] [address] [facility] [place] [facility] LIPID PANEL FASTING CHOLESTEROL .TOTAL/CHOL ESTEROL IN HDL [MASS RATIO] IN SERUM OR PLASMA 2.8 09/23 Specimen Type: SERUM No comment entered. Ordering Provider: KENAN DODD Report Released Date/Time: Sep 09, 2023 03:28 PM Reporting Lab: [facility] [place] [facility] [address] [facility] [address] Performing Lab: [facility] [place] [facility] [address] [facility] [address] [facility] [place] [facility] LIPID PANEL FASTING CHOLESTEROL IN HDL [MASS/VOLUM E] IN SERUM OR PLASMA 76 mg/dL 40 - 60 09/23 H Specimen Type: SERUM No comment entered. Ordering Provider: KENAN DODD Report Released Date/Time: Sep 09, 2023 03:28 PM Reporting Lab: [facility] [place] [facility] [address] [facility] [address] Performing Lab: [facility] [place] [facility] [address] [facility] [address] [facility] [place] [facility] BASIC METABOLIC PANEL (fasting) UREA NITROGEN [MASS/VOLUM E] IN SERUM OR PLASMA 18 mg/dL 7 - 25 09/23 Specimen Type: SERUM No comment entered. Ordering Provider: KENAN DODD Report Released Date/Time: Sep 09, 2023 03:28 PM Reporting Lab: [facility] [place] [facility] [address] [facility] [address] Performing Lab: [facility] [place] [facility] [address] [facility] [address] [facility] [place] [facility] BASIC METABOLIC PANEL (fasting) GLUCOSE [MASS/VOLUM E] IN SERUM OR PLASMA 97 mg/dL 65 - 100 09/23 Specimen Type: SERUM No comment entered. Ordering Provider: KENAN DODD Report Released Date/Time: Sep 09, 2023 03:28 PM Reporting Lab: [facility] [place] [facility] [address] [facility] [address] Performing Lab: [facility] [place] [facility] [address] [facility] [address] [facility] [place] [facility] BASIC METABOLIC PANEL (fasting) SODIUM [MOLES/VOLU ME] IN SERUM OR PLASMA 146 mmol/L 135 - 145 09/23 H Specimen Type: SERUM No comment entered. Ordering Provider: KENAN DODD Report Released Date/Time: Sep 09, 2023 03:28 PM Reporting Lab: [facility] [place] [facility] [address] [facility] [address] Performing Lab: [facility] [place] [facility] [address] [facility] [address] [facility] [place] [facility] BASIC METABOLIC PANEL (fasting) POTASSIUM [MOLES/VOLU ME] IN SERUM OR PLASMA 4.9 mmol/L 3.5 - 5.0 09/23 Specimen Type: SERUM No comment entered. Ordering Provider: KENAN DODD Report Released Date/Time: Sep 09, 2023 03:28 PM Reporting Lab: [facility] [place] [facility] [address] [facility] [address] Performing Lab: [facility] [place] [facility] [address] [facility] [address] [facility] [place] [facility] BASIC METABOLIC PANEL (fasting) CHLORIDE [MOLES/VOLU ME] IN SERUM OR PLASMA 108 mmol/L 100 - 110 09/23 Specimen Type: SERUM No comment entered. Ordering Provider: KENAN DODD Report Released Date/Time: Sep 09, 2023 03:28 PM Reporting Lab: [facility] [place] [place] [address] [address] Performing Lab: [facility]RL [facility] [address] [facility]OSPITALRELBA [facility]AL HOSPITALTRN [facility]USE [facility] BASIC METABOLIC PANEL (fasting) CARBON DIOXIDE, TOTAL [MOLES/VOLU ME] IN SERUM OR PLASMA 28 meq/L 20 - 30 09/23 Specimen Type: SERUM No comment entered. Ordering Provider: KENAN DODD Report Released Date/Time: Sep 09, 2023 03:28 PM Reporting Lab: [facility]ITALRELBA [facility] HOSPITALTRN [facility] [address] Performing Lab: [facility]ITALRL TRN [facility] [address] [facility] BASIC METABOLIC PANEL (fasting) CREATININE [MASS/VOLUM E] IN SERUM OR PLASMA 1.08 mg/dL 0.50 - 1.40 09/23 Specimen Type: SERUM No comment entered. Ordering Provider: KENAN DODD Report Released Date/Time: Sep 09, 2023 03:28 PM Reporting Lab: [facility]ITALRL TRN [facility] [address] Performing Lab: [facility]ITALRL [facility] [address] [facility]OS[facility]ITALRCROSSBRIDGE [facility]N [facility] BASIC METABOLIC PANEL (fasting) GLOMERULAR FILTRATION RATE/1.73 SQ M.PREDICTED [VOLUME RATE/AREA] IN SERUM, PLASMA OR BLOOD BY CREATININE- BASED FORMULA (CKD-EPI 2020) 72 mL/min 60 09/23 Specimen Type: SERUM No comment entered. Ordering Provider: KENAN DODD Report Released Date/Time: Sep 09, 2023 03:28 PM Reporting Lab: [facility] [place] [place] [address] Performing Lab: [facility] [place] [facility] [address] [facility] [address] [facility] CBC AND DIFF (AUTO) LEUKOCYTES [#/VOLUME] IN BLOOD BY AUTOMATED COUNT 5.74 10*3/u L 4.50 - 11.00 09/23 Specimen Type: BLOOD No comment entered. Ordering Provider: KENAN DODD Report Released Date/Time: Sep 09, 2023 03:28 PM Reporting Lab: [facility] [place] [facility] [address] [facility] [address] Performing Lab: [facility] [place] [facility] [address] [facility] [address] [facility] [place] [facility] CBC AND DIFF (AUTO) ERYTHROCYTE S [#/VOLUME] IN BLOOD BY AUTOMATED COUNT 5.55 10*6/u L 4.23 - 5.66 09/23 Specimen Type: BLOOD No comment entered. Ordering Provider: KENAN DODD Report Released Date/Time: Sep 09, 2023 03:28 PM Reporting Lab: [facility] [place] [address] [address] Performing Lab: [facility] [place] [facility] [address] [facility] [address] [facility] [place] [facility] CBC AND DIFF (AUTO) HEMOGLOBIN [MASS/VOLUM E] IN BLOOD 14.1 g/dL 12.8 - 17 09/23 Specimen Type: BLOOD No comment entered. Ordering Provider: KENAN DODD Report Released Date/Time: Sep 09, 2023 03:28 PM Reporting Lab: [facility] [place] [address] [address] Performing Lab: [facility] [place] [address] [address] [facility] [place] [facility] CBC AND DIFF (AUTO) HEMATOCRIT [VOLUME FRACTION] OF BLOOD BY AUTOMATED COUNT 43.5 39.2 - 50.4 09/23 Specimen Type: BLOOD No comment entered. Ordering Provider: KENAN DODD Report Released Date/Time: Sep 09, 2023 03:28 PM Reporting Lab: [facility] [place] [facility] [address] [facility] [address] Performing Lab: [facility] [place] [address] [facility] [address] [facility] [place] [facility] CBC AND DIFF (AUTO) MCV [ENTITIC VOLUME] BY AUTOMATED COUNT 78.4 fL 82 - 99 09/23 L Specimen Type: BLOOD No comment entered. Ordering Provider: KENAN DODD Report Released Date/Time: Sep 09, 2023 03:28 PM Reporting Lab: [facility] [place] [facility] [address] [facility] [address] Performing Lab: [facility] [place] [facility] [address] [facility] [address] [facility] CBC AND DIFF (AUTO) MCHC [MASS/VOLUM E] BY AUTOMATED COUNT 32.4 g/dL 30.8 - 35.1 09/23 Specimen Type: BLOOD No comment entered. Ordering Provider: KENAN DODD Report Released Date/Time: Sep 09, 2023 03:28 PM Reporting Lab: [facility] [place] [facility] [address] [facility] [address] Performing Lab: [facility] [place] [facility] [address] [facility] [address] [facility] [place] [facility] CBC AND DIFF (AUTO) PLATELETS [#/VOLUME] IN BLOOD BY AUTOMATED COUNT 231 10*3/u L 140 - 360 09/23 Specimen Type: BLOOD No comment entered. Ordering Provider: KENAN DODD Report Released Date/Time: Sep 09, 2023 03:28 PM Reporting Lab: [facility] [place] [facility] [address] [facility] [address] Performing Lab: [facility] [place] [facility] [address] [facility] [address] [facility] CBC AND DIFF (AUTO) ERYTHROCYTE DISTRIBUTIO N WIDTH [RATIO] BY AUTOMATED COUNT 15.2 12.0 - 16.0 09/23 Specimen Type: BLOOD No comment entered. Ordering Provider: KENAN DODD Report Released Date/Time: Sep 09, 2023 03:28 PM Reporting Lab: [facility] [place] [facility] [address] [facility] [address] Performing Lab: [facility] [place] [facility] [address] [facility] [address] [facility] CBC AND DIFF (AUTO) MONOCYTES [#/VOLUME] IN BLOOD BY AUTOMATED COUNT 0.49 10*3/u L 0.30 - 1.10 09/23 Specimen Type: BLOOD No comment entered. Ordering Provider: KENAN DODD Report Released Date/Time: Sep 09, 2023 03:28 PM Reporting Lab: [facility] [place] [facility] [address] [facility] [address] Performing Lab: [facility] [place] [facility] [address] [facility] [address] [facility] [place] [facility] CBC AND DIFF (AUTO) MCH [ENTITIC MASS] BY AUTOMATED COUNT 25.4 pg 26.2 - 32.6 09/23 L Specimen Type: BLOOD No comment entered. Ordering Provider: KENAN DODD Report Released Date/Time: Sep 09, 2023 03:28 PM Reporting Lab: [facility] [place] [facility] [address] [facility] [address] Performing Lab: [facility] [place] [facility] [address] [facility] [address] [facility] [place] [facility] CBC AND DIFF (AUTO) NEUTROPHILS /100 LEUKOCYTES IN BLOOD BY AUTOMATED COUNT 54.3 43.7 - 75.8 09/23 Specimen Type: BLOOD No comment entered. Ordering Provider: KENAN DODD Report Released Date/Time: Sep 09, 2023 03:28 PM Reporting Lab: [facility] [place] [facility] [address] [facility] [address] Performing Lab: [facility] [place] [facility] [address] [facility] [address] [facility] CBC AND DIFF (AUTO) LYMPHOCYTES /100 LEUKOCYTES IN BLOOD BY AUTOMATED COUNT 31.5 14.0 - 42.3 09/23 Specimen Type: BLOOD No comment entered. Ordering Provider: KENAN DODD Report Released Date/Time: Sep 09, 2023 03:28 PM Reporting Lab: [facility] [address] [facility] [address] Performing Lab: [facility] [address] [facility] [address] [facility] CBC AND DIFF (AUTO) MONOCYTES/1 00 LEUKOCYTES IN BLOOD BY AUTOMATED COUNT 8.5 5.1 - 13.7 09/23 Specimen Type: BLOOD No comment entered. Ordering Provider: KENAN DODD Report Released Date/Time: Sep 09, 2023 03:28 PM Reporting Lab: [facility] [address] [facility] [address] Performing Lab: [facility] [address] [facility] [address] [facility] CBC AND DIFF (AUTO) EOSINOPHILS /100 LEUKOCYTES IN BLOOD BY AUTOMATED COUNT 4.4 0.4 - 6.8 09/23 Specimen Type: BLOOD No comment entered. Ordering Provider: KENAN DODD Report Released Date/Time: Sep 09, 2023 03:28 PM Reporting Lab: [facility] [address] [facility] [address] Performing Lab: [facility] [address] [facility] [address] [facility] CBC AND DIFF (AUTO) BASOPHILS/1 00 LEUKOCYTES IN BLOOD BY AUTOMATED COUNT 1.0 0.1 - 2.0 09/23 Specimen Type: BLOOD No comment entered. Ordering Provider: KENAN DODD Report Released Date/Time: Sep 09, 2023 03:28 PM Reporting Lab: [facility] [address] [facility] [address] Performing Lab: [facility] [place] [facility] [address] [facility] [address] [facility] CBC AND DIFF (AUTO) NEUTROPHILS [#/VOLUME] IN BLOOD BY AUTOMATED COUNT 3.11 10*3/u L 2.20 - 7.60 09/23 Specimen Type: BLOOD No comment entered. Ordering Provider: KENAN DODD Report Released Date/Time: Sep 09, 2023 03:28 PM Reporting Lab: [facility] [place] [facility] [address] [facility] [address] Performing Lab: [facility] [place] [facility] [address] [facility] [address] [facility] CBC AND DIFF (AUTO) LYMPHOCYTES [#/VOLUME] IN BLOOD BY AUTOMATED COUNT 1.81 10*3/u L 1.00 - 3.20 09/23 Specimen Type: BLOOD No comment entered. Ordering Provider: KENAN DODD Report Released Date/Time: Sep 09, 2023 03:28 PM Reporting Lab: [facility] [place] [address] [address] Performing Lab: [facility] [place] [address] [address] [facility] [place] [facility] CBC AND DIFF (AUTO) EOSINOPHILS [#/VOLUME] IN BLOOD BY AUTOMATED COUNT 0.25 10*3/u L 0.03 - 0.44 09/23 Specimen Type: BLOOD No comment entered. Ordering Provider: KENAN DODD Report Released Date/Time: Sep 09, 2023 03:28 PM Reporting Lab: [facility] [place] [facility] [address] [facility] [address] Performing Lab: [facility] [place] [address] [address] [facility] CBC AND DIFF (AUTO) BASOPHILS [#/VOLUME] IN BLOOD BY AUTOMATED COUNT 0.06 10*3/u L 0.01 - 0.13 11/27 /2023 Specimen Type: BLOOD No comment entered. Ordering Provider: KENAN DODD Report Released Date/Time: Sep 09, 2023 03:28 PM Reporting Lab: [facility] [place] [facility] [address] [facility] [address] Performing Lab: [facility] [place] [facility] [address] [facility] [address] [facility] [place] [facility] CBC AND DIFF (AUTO) IMMATURE GRANULOCYTE S/100 LEUKOCYTES IN BLOOD BY AUTOMATED COUNT 0.3 0.0 - 0.7 09/23 Specimen Type: BLOOD No comment entered. Ordering Provider: KENAN DODD Report Released Date/Time: Sep 09, 2023 03:28 PM Reporting Lab: [facility] [place] [facility] [address] [facility] [address] Performing Lab: [facility] [place] [address] [address] [facility] [place] [facility] CBC AND DIFF (AUTO) IMMATURE GRANULOCYTE S [#/VOLUME] IN BLOOD 0.02 10*3/u L 0.00 - 0.06 09/23 Specimen Type: BLOOD No comment entered. Ordering Provider: KENAN DODD Report Released Date/Time: Sep 09, 2023 03:28 PM Reporting Lab: [facility] [place] [facility] [address] [facility] [address] Performing Lab: [facility] [place] [facility] [address] [facility] [address] [facility] [place] [facility] LIPID PANEL FASTING CHOLESTEROL [MASS/VOLUM E] IN SERUM OR PLASMA 288 mg/dL 7 - 199 03/11 H Specimen Type: SERUM No comment entered. Ordering Provider: KENAN DODD Report Released Date/Time: Jan 25, 2023 10:36 AM Reporting Lab: [facility] [place] [facility] [address] [facility] [address] Performing Lab: [facility] [place] [address] [address] [facility] LIPID PANEL FASTING TRIGLYCERID E [MASS/VOLUM E] IN SERUM OR PLASMA 65 mg/dL 0 - 150 03/11 Specimen Type: SERUM No comment entered. Ordering Provider: KENAN DODD Report Released Date/Time: Jan 25, 2023 10:36 AM Reporting Lab: [facility] [place] [facility] [address] [facility] [address] Performing Lab: [facility] [place] [facility] [address] [facility] [address] [facility] [place] [facility] LIPID PANEL FASTING CHOLESTEROL IN LDL [MASS/VOLUM E] IN SERUM OR PLASMA BY CALCULATION 210 mg/dL 0 - 129 03/11 H Specimen Type: SERUM No comment entered. Ordering Provider: KENAN DODD Report Released Date/Time: Jan 25, 2023 10:36 AM Reporting Lab: [facility] [place] [address] [address] Performing Lab: [facility] [place] [address] [address] [facility] [place] [facility] LIPID PANEL FASTING CHOLESTEROL .TOTAL/CHOL ESTEROL IN HDL [MASS RATIO] IN SERUM OR PLASMA 4.4 03/11 Specimen Type: SERUM No comment entered. Ordering Provider: KENAN DODD Report Released Date/Time: Jan 25, 2023 10:36 AM Reporting Lab: [facility] [place] [facility] [address] [facility] [address] Performing Lab: [facility] [place] [facility] [address] [facility] [address] [facility] [place] [facility] LIPID PANEL FASTING CHOLESTEROL IN HDL [MASS/VOLUM E] IN SERUM OR PLASMA 65 mg/dL 40 - 60 03/11 H Specimen Type: SERUM No comment entered. Ordering Provider: KENAN DODD Report Released Date/Time: Jan 25, 2023 10:36 AM Reporting Lab: [facility] [facility] [address] [facility] [address] Performing Lab: [facility] [place] [facility] [address] [facility] [address] [facility] [place] [facility] BASIC METABOLIC PANEL (fasting) UREA NITROGEN [MASS/VOLUM E] IN SERUM OR PLASMA 19 mg/dL 7 - 25 03/11 Specimen Type: SERUM No comment entered. Ordering Provider: KENAN DODD Report Released Date/Time: Jan 25, 2023 10:36 AM Reporting Lab: [facility] [place] [facility] [address] [facility] [address] Performing Lab: [facility] [place] [facility] [address] [facility] [address] [facility] [place] [facility] BASIC METABOLIC PANEL (fasting) GLUCOSE [MASS/VOLUM E] IN SERUM OR PLASMA 94 mg/dL 65 - 100 03/11 Specimen Type: SERUM No comment entered. Ordering Provider: KENAN DODD Report Released Date/Time: Jan 25, 2023 10:36 AM Reporting Lab: [facility] [place] [facility] [address] [facility] [address] Performing Lab: [facility] [place] [address] [address] [facility] [place] [facility] BASIC METABOLIC PANEL (fasting) SODIUM [MOLES/VOLU ME] IN SERUM OR PLASMA 140 mmol/L 135 - 145 03/11 Specimen Type: SERUM No comment entered. Ordering Provider: KENAN DODD Report Released Date/Time: Jan 25, 2023 10:36 AM Reporting Lab: [facility] [place] [facility] [address] [facility] [address] Performing Lab: [facility] [place] [facility] [address] [facility] [address] [facility] [place] [facility] BASIC METABOLIC PANEL (fasting) POTASSIUM [MOLES/VOLU ME] IN SERUM OR PLASMA 4.8 mmol/L 3.5 - 5.0 03/11 Specimen Type: SERUM No comment entered. Ordering Provider: KENAN DODD Report Released Date/Time: Jan 25, 2023 10:36 AM Reporting Lab: [facility] [place] [facility] [address] [facility] [address] Performing Lab: [facility] [place] [facility] [address] [facility] [address] [facility] [place] [facility] BASIC METABOLIC PANEL (fasting) CHLORIDE [MOLES/VOLU ME] IN SERUM OR PLASMA 105 mmol/L 100 - 110 03/11 Specimen Type: SERUM No comment entered. Ordering Provider: KENAN DODD Report Released Date/Time: Jan 25, 2023 10:36 AM Reporting Lab: [facility] [place] [facility] [address] [facility] [address] Performing Lab: [facility] [place] [facility] [address] [facility] [address] [facility] [facility] BASIC METABOLIC PANEL (fasting) CARBON DIOXIDE, TOTAL [MOLES/VOLU ME] IN SERUM OR PLASMA 27 meq/L 20 - 30 03/11 Specimen Type: SERUM No comment entered. Ordering Provider: KENAN DODD Report Released Date/Time: Jan 25, 2023 10:36 AM Reporting Lab: [facility] [place] [facility] [address] [facility] [address] Performing Lab: [facility] [place] [facility] [address] [facility] [address] [facility] [place] [facility] BASIC METABOLIC PANEL (fasting) CREATININE [MASS/VOLUM E] IN SERUM OR PLASMA 0.95 mg/dL 0.50 - 1.40 03/11 Specimen Type: SERUM No comment entered. Ordering Provider: KENAN DODD Report Released Date/Time: Jan 25, 2023 10:36 AM Reporting Lab: [facility] [place] [facility] [address] [facility] [address] Performing Lab: [facility] [place] [facility] [address] [facility] [address] [facility] [place] [facility] BASIC METABOLIC PANEL (fasting) GLOMERULAR FILTRATION RATE/1.73 SQ M.PREDICTED [VOLUME RATE/AREA] IN SERUM, PLASMA OR BLOOD BY CREATININE- BASED FORMULA (CKD-EPI) 83 mL/min 60 03/11 Specimen Type: SERUM No comment entered. Ordering Provider: KENAN DODD Report Released Date/Time: Jan 25, 2023 10:36 AM Reporting Lab: [facility] [place] [facility] [address] [facility] [address] Performing Lab: [facility] [place] [facility] [address] [facility] [address] [facility] LIVER FUNCTION PROTEIN [MASS/VOLUM E] IN SERUM OR PLASMA 7.1 g/dL 6.0 - 8.3 03/11 Specimen Type: SERUM No comment entered. Ordering Provider: KENAN DODD Report Released Date/Time: Jan 25, 2023 10:36 AM Reporting Lab: [facility] [place] [facility] [address] [facility] [address] Performing Lab: [facility] [place] [facility] [address] [facility] [address] [facility] [place] LIVER FUNCTION ALBUMIN [MASS/VOLUM E] IN SERUM OR PLASMA 3.6 g/dL 3.5 - 5.0 03/11 Specimen Type: SERUM No comment entered. Ordering Provider: KENAN DODD Report Released Date/Time: Jan 25, 2023 10:36 AM Reporting Lab: [facility] [place] [facility] [address] [facility] [address] Performing Lab: [facility] [place] [facility] [address] [facility] [address] [facility] LIVER FUNCTION ALKALINE PHOSPHATASE [ENZYMATIC ACTIVITY/VO LUME] IN SERUM OR PLASMA 173 U/L 40 - 150 03/11 H Specimen Type: SERUM No comment entered. Ordering Provider: KENAN DODD Report Released Date/Time: Jan 25, 2023 10:36 AM Reporting Lab: [facility] [place] [facility] [address] [facility] [address] Performing Lab: [facility] [place] [facility] [address] [facility] [address] [facility] LIVER FUNCTION ASPARTATE AMINOTRANSF ERASE [ENZYMATIC ACTIVITY/VO LUME] IN SERUM OR PLASMA 21 U/L 5 - 34 03/11 Specimen Type: SERUM No comment entered. Ordering Provider: KENAN DODD Report Released Date/Time: Jan 25, 2023 10:36 AM Reporting Lab: [facility] [place] [facility] [address] [facility] [address] Performing Lab: [facility] [place] [facility] [address] [facility] [address] [facility] LIVER FUNCTION ALANINE AMINOTRANSF ERASE [ENZYMATIC ACTIVITY/VO LUME] IN SERUM OR PLASMA 45 U/L 6 - 55 03/11 Specimen Type: SERUM No comment entered. Ordering Provider: KENAN DODD Report Released Date/Time: Jan 25, 2023 10:36 AM Reporting Lab: [facility] [place] [facility] [address] [facility] [address] Performing Lab: [facility] [place] [facility] [address] [facility] [address] [facility] LIVER FUNCTION BILIRUBIN.T OTAL [MASS/VOLUM E] IN SERUM OR PLASMA 0.5 mg/dL 0.2 - 1.2 03/11 Specimen Type: SERUM No comment entered. Ordering Provider: KENAN DODD Report Released Date/Time: Jan 25, 2023 10:36 AM Reporting Lab: [facility] [place] [facility] [address] [facility] [address] Performing Lab: [facility] [place] [facility] [address] [facility] [address] [facility] Vital Signs Combined list of inpatient and outpatient Vital Signs from Department of Defense and Veterans Affairs, ranging from 12 months to all on record, depending upon the facility. Vital Sign Value Date Comments Source SYSTOLIC BLOOD PRESSURE 127 09/08/20 24 07:59:52 [facility] DIASTOLIC BLOOD PRESSURE 76 024 07:59:52 [facility] [place] [facility] PULSE OXIMETRY 99 09/08/2024 07:59:52 [facility] WEIGHT 187 09/08/2024 07:59:52 [facility] BMI 24 kg/m2 09/08/2024 07:59:52 [facility] [...] 08:55:15 [facility] BMI 25 kg/m2 03/09/2024 08:55:15 [facility] PAIN 0 03/09/2024 08:55:15 [facility] TEMPERATURE 97.8 03/09/2024 08:55:15 [facility] PULSE 64 03/09/2024 08:55:15 [facility] RESPIRATION 16 03/09/2024 08:55:15 [facility] Encounters Combined list of: 1) Encounters from Department of Veterans Affairs facilities going backup to the last 18 months, not all VA inpatient encounters are included; 2) Encounters from the Department of Defense facilities going backup to 280 months. Location Location Details Encounter Type Encounter Number Reason For Visit Attending Provider ADM Date DC Date Status Disposition Source [facility] [id number] Diagnos is: ICD-10- CM F43.10 Post-tr aumatic stress disorde r, unspeci fied MARK,CHR ISTIE 07/29 [facility] PSYTX W PT W E/M 30 MIN [id number] Diagnos is: ICD-10- CM F10.21 Alcohol depende nce, in remissi on FELICIANO,P CARLA B 07/30 [facility] En[facility] [id number] 08/11 [facility] [id number] Diagnos is: ICD-10- CM F43.10 Post-tr aumatic stress disorde r, unspeci fied MARK,CHR ISTIE 08/12 [facility] Outpatient Encounter [id number] 08/26 [facility] GROUP PSYCHOTHER APY [id number] Diagnos is: ICD-10- CM F43.10 Post-tr aumatic stress disorde r, unspeci fied MARK,CHR ISTIE 09/02 [facility] GROUP PSYCHOTHER APY [id number] Diagnos is: ICD-10- CM F43.10 Post-tr aumatic stress disorde r, unspeci fied MARK,CHR ISTIE 09/16 [facility] Out[facility] Encounter [id number] 09/18 [facility] GROUP PSYCHOTHER APY [id number] Diagnos is: ICD-10- CM F43.10 Post-tr aumatic stress disorde r, unspeci fied MARK,CHR ISTIE 09/23 [facility] OFFICE O/P EST MOD 30-39 MIN [id number] Diagnos is: ICD-10- CM F43.12 Post-tr aumatic stress disorde r, chronic AHMED,MOHA MMED JAWED 09/26 [facility] GROUP PSYCHOTHER APY [id number] Diagnos is: ICD-10- CM F43.10 Post-tr aumatic stress disorde r, unspeci fied MARK,CHR ISTIE 09/30 [facility] GROUP PSYCHOTHER APY [id number] Diagnos is: ICD-10- CM F43.10 Post-tr aumatic stress disorde r, unspeci fied MARK,CHR ISTIE 10/07 [facility] Out[facility] Encounter [id number] 10/11 [facility] GROUP PSYCHOTHER APY [id number] Diagnos is: ICD-10- CM F43.10 Post-tr aumatic stress disorde r, unspeci fied MARK,CHR ISTIE 10/14 [facility] OFF/OP EST MAY X REQ PHY/QHP [id number] Diagnos is: ICD-10- CM Z01.30 Encount er for exam of blood pressur e w/o abnorma l finding s MAGNUS,Zain NORA H 10/23 [facility] PSYTX W PT W E/M 30 MIN [id number] Diagnos is: ICD-10- CM F43.12 Post-tr aumatic stress disorde r, chronic FELICIANO,P CARLA B 10/24 [facility] GROUP PSYCHOTHER APY [id number] Diagnos is: ICD-10- CM F43.10 Post-tr aumatic stress disorde r, unspeci fied MARK,CHR ISTIE 11/04 [facility] GROUP PSYCHOTHER APY [id number] Diagnos is: ICD-10- CM F43.10 Post-tr aumatic stress disorde r, unspeci fied MARK,CHR ISTIE 11/18 [facility] GROUP PSYCHOTHER APY [id number] Diagnos is: ICD-10- CM F43.10 Post-tr aumatic stress disorde r, unspeci fied MARK,CHR ISTIE 12/02 [facility] APY [id number] Diagnos is: ICD-10- CM F43.10 Post-tr aumatic stress disorde r, unspeci fied MARK,[facility] ISTIE 12/09 [facility] HEARING AID REPAIR/MOD IFYING [id number] Diagnos is: ICD-10- CM Z46.1 Encount er for fitting and adjustm ent of hearing aid GRISEL CACERES 12/17 [facility] GROUP PSYCHOTHER APY [id number] Diagnos is: ICD-10- CM F43.10 Post-tr aumatic stress disorde r, unspeci fied MARK,[facility] ISTIE 12/23 [facility] GROUP PSYCHOTHER APY [id number] Diagnos is: ICD-10- CM F43.10 Post-tr aumatic stress disorde r, unspeci fied MARK,CHR ISTIE 12/29 [facility] HEARING AID REPAIR/MOD IFYING [id number] Diagnos is: ICD-10- CM Z46.1 Encount er for fitting and adjustm ent of hearing aid Kinza PALMA 01/02 [facility] GROUP PSYCHOTHER APY [id number] Diagnos is: ICD-10- CM F43.10 Post-tr aumatic stress disorde r, unspeci fied MARK,[facility] ISTIE 01/05 [facility] Outpatient Encounter [id number] 01/08 [facility] Outpatient Encounter [id number] 01/08 [facility] CASE MGMT-ORAL HEALTH LIT [id number] Diagnos is: ICD-10- CM K03.6 Deposit s [accret ions] on teeth Svetlana AGOSTO 01/09 [facility] DENTAL BITEWING FOUR IMAGES 77837-063 [id number] Diagnos is: ICD-10- CM K08.9 Disorde r of teeth and support ing structu res, unspeci fied TORRES,LEI 01/09 [facility] GROUP PSYCHOTHER APY [id number] Diagnos is: ICD-10- CM F43.10 Post-tr aumatic stress disorde r, unspeci fied MARK,[facility] ISTIE 01/12 [facility] Outpatient Encounter [id number] 01/17 [facility] GROUP PSYCHOTHER APY [id number] Diagnos is: ICD-10- CM F43.10 Post-tr aumatic stress disorde r, unspeci fied MARK,[facility] ISTIE 01/19 [facility] GROUP PSYCHOTHER APY [id number] Diagnos is: ICD-10- CM F43.10 Post-tr aumatic stress disorde r, unspeci fied MARK,[facility] ISTIE 01/26 [facility] GROUP PSYCHOTHER APY [id number] [id number] Diagnos is: ICD-10- CM F43.10 Post-tr aumatic stress disorde r, unspeci fied MARK,[facility] ISTIE 02/02 [facility] GROUP PSYCHOTHER APY [id number] [id number] Diagnos is: ICD-10- CM F43.10 Post-tr aumatic stress disorde r, unspeci fied MARK,CHR ISTIE 02/09 [facility] GROUP PSYCHOTHER APY [id number] Diagnos is: ICD-10- CM F43.10 Post-tr aumatic stress disorde r, unspeci fied MARK,CH[facility] ISTIE 02/16 [facility] GROUP PSYCHOTHER APY [id number] Diagnos is: ICD-10- CM F43.10 Post-tr aumatic stress disorde r, unspeci fied MARK,CHR ISTIE 02/23 [facility] Outpatient Encounter [id number] 03/09 [facility] OFFICE O/P EST MOD 30 MIN [id number] Diagnos is: ICD-10- CM 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 , unspeci fied site FURCOLO,TI NA 03/09 [facility] GROUP PSYCHOTHER APY [id number] Diagnos is: ICD-10- CM F43.10 Post-tr aumatic stress disorde r, unspeci fied MARK,CH[facility] ISTIE 03/09 [facility] GROUP PSYCHOTHER APY [id number] [id number] Diagnos is: ICD-10- CM F43.10 Post-tr aumatic stress disorde r, unspeci fied MARK,CHR ISTIE 03/16 [facility] PSYTX W PT W E/M 30 MIN 74768-4.63 [id number] Diagnos is: ICD-10- CM F10.21 Alcohol depende nce, in remissi on FELICIANO,P CARLA B 03/26 [facility] GROUP PSYCHOTHER APY [id number] [id number] Diagnos is: ICD-10- CM F43.10 Post-tr aumatic stress disorde r, unspeci fied MARK,CHR ISTIE 03/30 [facility] GROUP PSYCHOTHER APY [id number] [id number] Diagnos is: ICD-10- CM F43.10 Post-tr aumatic stress disorde r, unspeci fied MARK,CH[facility] ISTIE 04/06 [facility] GROUP PSYCHOTHER APY [id number] Diagnos is: ICD-10- CM F43.10 Post-tr aumatic stress disorde r, unspeci fied MARK,CHR ISTIE 05/04 [facility] GROUP PSYCHOTHER APY [id number] [id number] Diagnos is: ICD-10- CM F43.10 Post-tr aumatic stress disorde r, unspeci fied MARK,CHR ISTIE 05/11 [facility] GROUP PSYCHOTHER APY [id number] [id number] Diagnos is: ICD-10- CM F43.10 Post-tr aumatic stress disorde r, unspeci fied MARK,CH[facility] ISTIE 05/18 [facility] Outpatient Encounter [id number] [facility] GROUP PSYCHOTHER APY [id number] [id number] Diagnos is: ICD-10- CM F43.10 Post-tr aumatic stress disorde r, unspeci fied MARK,CH[facility] ISTIE 06/01 [facility] GROUP PSYCHOTHER APY [id number] [id number] Diagnos is: ICD-10- CM F43.10 Post-tr aumatic stress disorde r, unspeci fied MARK,CH[facility] ISTIE 06/08 [facility] GROUP PSYCHOTHER APY [id number] Diagnos is: ICD-10- CM F43.10 Post-tr aumatic stress disorde r, unspeci fied MARK,CHR ISTIE 06/15 [facility] GROUP PSYCHOTHER APY [id number] [id number] Diagnos is: ICD-10- CM F43.10 Post-tr aumatic stress disorde r, unspeci fied MARK,CHR ISTIE 06/22 [facility] GROUP PSYCHOTHER APY [id number] [id number] Diagnos is: ICD-10- CM F43.10 Post-tr aumatic stress disorde r, unspeci fied MARK,CH[facility] ISTIE 07/13 [facility] HEARING AID REPAIR/MOD IFYING [id number] [id number] Diagnos is: ICD-10- CM Z46.1 Encount er for fitting and adjustm ent of hearing aid SHAYNE GARRISON 07/13 [facility] Outpatient Encounter [id number]/15 [facility] CASE MGMT-ORAL HEALTH LIT 1. Diagnos is: ICD-10- CM K03.6 Deposit s [accret ions] on teeth BELFRANCIEHESierra,N ADEMiliHDA 07/16 [facility] GROUP PSYCHOTHER APY [id number] Diagnos is: ICD-10- CM F43.10 Post-tr aumatic stress disorde r, unspeci fied MARK,CHR ISTIE 07/20 [facility] GROUP PSYCHOTHER APY [id number] Diagnos is: ICD-10- CM F43.10 Post-tr aumatic stress disorde r, unspeci fied MARK,CHR ISTIE 07/27 [facility] GROUP PSYCHOTHER APY [id number] Diagnos is: ICD-10- CM F43.10 Post-tr aumatic stress disorde r, unspeci fied MARK,CH[facility] ISTIE 08/03 [facility] Outpatient Encounter [id number] 08/06 [facility] GROUP PSYCHOTHER APY [id number] Diagnos is: ICD-10- CM F43.10 Post-tr aumatic stress disorde r, unspeci fied MARK,CH[facility] ISTIE 08/24 [facility] Outpatient Encounter [id number] [id number] 08/28 [facility] GROUP PSYCHOTHER APY [id number] Diagnos is: ICD-10- CM F43.10 Post-tr aumatic stress disorde r, unspeci fied MARK,CH[facility] ISTIE 08/31 [facility] OFFICE O/P EST MOD 30 MIN [id number] [id number] Diagnos is: ICD-10- CM R97.20 Elevate d prostat e specifi c antigen [PSA] FURCOLO,TI NA 09/08 [facility] PSYTX W PT W E/M 30 MIN 41720-5.63 [id number] Diagnos is: ICD-10- CM F43.12 Post-tr aumatic stress disorde r, chronic FELICIANO,P CARLA B 09/08 [facility] GROUP PSYCHOTHER APY [id number] Diagnos is: ICD-10- CM F43.10 Post-tr aumatic stress disorde r, unspeci fied MARK,CHR ISTIE 09/14 [facility] GROUP PSYCHOTHER APY [id number] 1. Diagnos is: ICD-10- CM F43.10 Post-tr aumatic stress disorde r, unspeci fied MARK,CHR ISTIE 09/21 [facility] GROUP PSYCHOTHER APY [id number] 1. Diagnos is: ICD-10- CM F43.10 Post-tr aumatic stress disorde r, unspeci fied MARK,CHR ISTIE 10/05 [facility] GROUP PSYCHOTHER APY [id number] Diagnos is: ICD-10- CM F43.10 Post-tr aumatic stress disorde r, unspeci fied MARK,CHR ISTIE 10/12 [facility] QNHP OL DIG ASSMT&MGMT 21+ [id number] Diagnos is: ICD-10- CM F43.12 Post-tr aumatic stress disorde r, chronic LABELLA,KE RI DONAL 10/15 [facility] GROUP PSYCHOTHER APY [id number] Diagnos is: ICD-10- CM F43.10 Post-tr aumatic stress disorde r, unspeci fied MARK,CHR ISTIE 10/19 [facility] HC PRO PHONE CALL 5-10 MIN 74970-363 [id number] Diagnos is: ICD-10- CM F43.12 Post-tr aumatic stress disorde r, chronic LABELLA,KE RI DONAL 10/27 [facility] GROUP PSYCHOTHER APY [id number] [id number] Diagnos is: ICD-10- CM F43.10 Post-tr aumatic stress disorde r, unspeci fied MARK,CHR ISTIE 11/02 [facility] GROUP PSYCHOTHER APY [id number] Diagnos is: ICD-10- CM F43.10 Post-tr aumatic stress disorde r, unspeci fied MARK,CHR ISTIE 11/23 [facility] GROUP PSYCHOTHER APY [id number] [id number] Diagnos is: ICD-10- CM F43.10 Post-tr aumatic stress disorde r, unspeci fied MARK,CHR ISTIE 11/30 [facility] GROUP PSYCHOTHER APY [id number] [id number] Diagnos is: ICD-10- CM F43.10 Post-tr aumatic stress disorde r, unspeci fied MARK,CHR ISTIE 12/07 [facility] Outpatient Encounter [id number] [id number]/15 [facility] Outpatient Encounter [id number] [id number] 12/15 [facility] GROUP PSYCHOTHER APY [id number] [id number] Diagnos is: ICD-10- CM F43.10 Post-tr aumatic stress disorde r, unspeci fied MARK,CHR ISTIE 12/21 [facility] GROUP PSYCHOTHER APY [id number] [id number] Diagnos is: ICD-10- CM F43.10 Post-tr aumatic stress disorde r, unspeci fied MARK,CHR ISTIE 12/28 [facility] GROUP PSYCHOTHER APY [id number] Diagnos is: ICD-10- CM F43.10 Post-tr aumatic stress disorde r, unspeci fied MARK,CHR ISTIE 01/04 [facility] Outpatient Encounter [id number] 01/11 [facility] GROUP PSYCHOTHER APY [id number] Diagnos is: ICD-10- CM F43.10 Post-tr aumatic stress disorde r, unspeci fied MARK,CHR ISTIE 01/11 [facility] CASE MGMT-ORAL HEALTH LIT [id number] Diagnos is: ICD-10- CM K03.6 Deposit s [accret ions] on teeth BELYSHEV,N ADEZHDA 01/12 [facility] GROUP PSYCHOTHER APY [id number] Diagnos is: ICD-10- CM F43.10 Post-tr aumatic stress disorde r, unspeci fied MARK,CHR ISTIE 01/18 [facility] Social History Combined list of available smoking, tobacco, and other social history from Department of Defense and Veterans Affairs facilities. Social History Type Response Date Comment Source Tobacco smoking status [facility] VA-TOBACCO QUIT 15 YRS OR MORE 03/09/2024 [facility] History of tobacco use VA-TOBACCO FORMER USER 03/09/2024 [facility] History of tobacco use VA-TOBACCO FORMER USER 03/18/2023 [facility] History of tobacco use VA-TOBACCO FORMER USER 01/11/2022 [facility] History of tobacco use VA-TOBACCO FORMER USER 12/26/2020 [facility] History of tobacco use VA-TOBACCO QUIT 15 YRS OR MORE 12/08/2019 [facility] History of tobacco use [place]-TOBACCO FORMER USER 10/14/2018 [facility] History of tobacco use QUIT TOBACCO USE > 7 YEARS AGO 12/12/2017 quit > 30 yrs ( 2-3 pks a day) [facility] Plan of Care List of future care activities from [facility] facilities. Additional future care activities may be listed in the Assessment and Plan section. Date/Time Care Activity Care Activity Detail Facili ty 02/01/2025 AMBULATORY - PSYCHIATRY AMBULATORY - PSYC HIATRY [facility] Advance Directives List of completed, amended, or rescinded Advance Directives on record at [facility] facilities. An actual copy of the Directive is not included. Date Advance Directive Provider Source 02/09/2019 ADVANCE DIRECTIVE VAN MORENO [facility] 02/08/2019 ADVANCE DIRECTIVE SAMM BRINK [facility]
--- OUTSIDE RECORDS SUMMARY | 2025-01-26 12:46 | XMS_ITS | Patient Health Record ---
Author Organization [facility] Address [address] [place] [address] Care Team Providers Care Apprentice Cosmetologist Name Role Phone Wenceslao MALHOTRA, Kleber Primary Care Provider Michael Daily [phone] Allergies Allergen (clinical drug ingredient) Drug/Non Drug Allergy documented on EMR Reaction Allergy Type Onset Date Status Shellfish (FN) Shellfish-derived Products Unknown Drug Allergy Active bee pollen Bee Pollen Unknown Drug Allergy Activ e Reason For Referral No Information Medications Medication SIG (Take, Route, Frequency, Duration) Notes Start Date End Date Status Benazepril HCl 20 MG 1 tablet Orally Onc e a day for 30 day(s) Active Atorvastatin Calcium 40 MG TAKE 1 TABLET BY MOUTH DAILY Oral for 90 Active Jessica Allergy 60 MG 1 tablet as needed Orally Twice a day Active Immunizations Vaccine Route Administration Date Status Comme nts Influenza Unknown 08/05/2018 Administered Influenza Unknown 07/28/2020 Administered Social History Tobacco Use: Social History Observation Description Date Details (start date - stop date) Former Smoker NA - NA Tobacco Use/Smoking Question Answer Notes Patient is a former smoker How long has it been since you last smoked? > 10 years Alcohol Screen Question Answer Notes Did you have a drink containing alcohol in the p ast year? No Points 0 Interpretation Negative Section Notes: Nonsmoker; no alcohol sicne 01/2018 Nonsmoker; no alcohol since 01/2018 Nonsmoker; no alcohol since 01/2018 Problems Problem Type SNOMED Code ICD Code Onset Dates Problem Status W/U Status Risk Notes Problem 878088041 Encounter for screening for malignant neoplasm of colon (Z12.11) Active confirmed Problem 258373445 Elevated liver function tests (R79.89) Active confirmed Problem 361958583779528 Preprocedural examination (Z01.818) Active confirmed Problem 270562825 Alcohol-induced acute pancreatitis, 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) Active confirmed Plan Of Treatment Pending Test Test Name Order Date LIVER PROFILE 02/28/2023 US ABD 02/28/2023 Future Test Test Name Order Date COLONOSCOPY 11/10/2020 Insurance Providers Payer Name Payer Address Payer Phone Subscriber Number Group Number Insured Name Patient Relationship to Insured Coverage Start Date Coverage End Date [facility] [address] [address] [place] [address] [id number] [employer] Self - patient is the insured Medical (General) History Medical History History ICD Code Denies AK,DM,CVA,Lung disease,renal dise ase HTN Hyperlipidemia Neg. screening colonoscopy in 08/2010 an d in 10/2020 Pancreatitis in 2018 due to EtOH Diverticulosis Aseptic necrosis R/hip Surgical History Surgery Date(Month/Year) Right hip replacement 08/2005 Tonsillectomy
--- OUTSIDE RECORDS SUMMARY | 2025-01-26 12:46 | XMS_ITS ---
Author Organization [facility] Address [address] [place] [address] Care Team Providers Care Sheet Metal Supervisor Name Role Phone Kleber Billy MD Primary Care Provider Unavaila Osman Velazco Unavailable [phone] Allergies Allergen (clinical drug ingredient) Drug/Non Drug [...] Ordered Date Performed Result Body Sit e 92802-SSIQKOK NAIL, 6 OR MORE 11/03/2024 N/A 11346-KGJD SKIN LESIONS, OVER 4 11/03/2024 N/A Encounters Encounter Location Date Provider Diagnosis [facility] [address] [address] 11/03/2024 Osman Blanc Atherosclerosis of shoshone-bannock artery of both lower extremities, with unspecified presence of clinical manifestation I70.203 ; Tinea unguium B35.1 ; Pain in right toe(s) M79.674 and Pain in left toe(s) M79.675 Assessments Encounter Date Diagnosis (ICD Code) Assessment Notes Treatment Notes Treatment Clinical Notes Section Notes 11/03/2024 Atherosclerosis of shoshone-bannock artery of both lower extremities, with unspecified presence of clinical manifestation (ICD-10 - I70.203) 11/03/2024 Tinea unguium (ICD-10 - B35.1) 11/03/2024 Pain in right toe(s) (ICD-10 - M79.674) 11/03/2024 Pain in left toe(s) (ICD-10 - M79.675) Plan Of Treatment Pending Test Test Name Order Date [id number] NAIL, 6 OR MORE 11/03/2024 07685-CWZJ SKIN LESIONS, OVER 4 11/03/19 25 Next Appt Details Follow Up: prn, Reason: Provider Name:Osman Blanc , 02/02/2025 09:00:00 AM, [address] [place] [address], [place], [address], Procedure Notes * Category Sub-Category Detail Notes [...] use of a nail nipper and/or dremel-type tool grinder operator, to a more viable healthy [...] to maintain effectiveness in symptomatic relief - 46518 Keratoma Treatment Parring or Cutting o f [...] instrumentation by the physician of record - 93401, Q8 Progress Notes * Lynette SANCHEZ JrDOB:[birth year] (74 yo M)Acc No.[id number]:11/03/2024 Progress Note Patient:?Lynette SANCHEZ Jr Provider:?Osman Blanc DPM :1950???Age:74 Y???Sex:Male Praveen e:11/03/2024 Address:[facility] [address] [place] [place] Pcp:Kleber Billy MD Subjective: * Chief Complaints: [...] surgery 07/2015 * Hospitalization/Major Diagno stic Procedure:?[facility]- Unknown Headache Migraine for 5 days [...] Assessment: 1.?Tinea unguium - B35.1???2 .?Atherosclerosis of shoshone-bannock artery of both lower extremities, with unspecified presence of clinical manifestation - I70.203 (Primary)???3.?Pain in right toe(s) - M79.674???4.?Pain in left toe(s) - M79.675??? Plan: * Treatment: 2.?Tinea unguium?Procedure: [id number] NAIL, 6 OR MORE * Procedures:?Debride Nail [...] use of a nail nipper and/or dremel-type tool grinder operator, to a more viable healthy [...] to maintain effectiveness in symptomatic relief - 33441.?Keratoma Treatment:?Parring or Cutting of Benign Hyperkeratotic Lesion(s)?(-57) [...] instrumentation by the physician of record - 90694, Q8.? * Procedure Codes:?12027 DEBRI DE NAIL, 6 OR MORE, Modifiers: XS 82669 TRIM SKIN LESIONS, OVER 4, Modifiers: XS , Q8 * Follow Up:?prn * Images: * Sign off status: Completed true * Provider:?Osman Blanc DPM Date:?2024 Generated for Ally gomez/Leann/Maryjane on:?01/26/2025 12:46 PM EDT History and Physical Notes * [...]
== END 2025-01-26 11:55 | disposition home or self-care (01) ==
LOC: HO.HUSH 10:41
PROVIDERS: PCP Internal Medicine; Visit Provider Urology
DX: N40.1 Benign prostatic hyperplasia with lower urinary tract symptoms (principal); N13.8 Other obstructive and reflux uropathy; R97.20 Elevated prostate specific antigen [PSA]
CPT/HCPCS: 99214; G2211

== ENCOUNTER → 2025-01-26 10:40 | Outpatient (BNVA) | payer OTHER, SELFPAY | PROVIDERS: PCP Internal Medicine; Visit Provider Urology | DX: N40.1 Benign prostatic hyperplasia with lower urinary tract symptoms (principal); N13.8 Other obstructive and reflux uropathy; R97.20 Elevated prostate specific antigen [PSA] | CPT/HCPCS: 99212 ==

== ENCOUNTER 2025-03-15 14:10 | Outpatient (AMB) | payer MEDICARE, SELFPAY ==
--- OUTSIDE RECORDS SUMMARY | 2025-03-15 14:20 | XMS_ITS | Patient Health Record ---
[facility] Organization [facility] Address [address] [place] [address] Care Team Providers Care Hat Steamer Name Role Phone Edwin Bradley Primary Care Provider Unavailab Osman Jeong Unavailable [phone] Allergies Allergen (clinical drug ingredient) Drug/Non Drug Allergy documented on EMR Reaction Allergy Type Onset Date Status Seasonale Unknown Drug Allergy Active shrimp allergenic extract Shrimp (Diagnostic) swelling Drug Allergy Active Shellfish (FN) Shellfish-derived Products swelling Drug Allergy Active Reason For Referral No Information Medications Medication SIG (Take, Route, Frequency, Duration) Notes Start Date End Date Status Ammonium Lactate 12 % APPLY EXTERNALLY T WICE DAILY for 30 Active Rosuvastatin Calcium 20 MG 1 tablet Orally Once a day for 30 day(s) Active Jessica Allergy 180 MG 1 tablet Orally O nce a day Active Benazepril HCl 20 MG Orally Active Simvastatin 40 MG Orally No t-Taking Immunizations Vaccine Route Administration Date Status Comme nts COVID-19 Moderna Vaccine Unknown 09/09/2021 Administered 1st 12/07/2020 2nd 01/04/2021 Social History Tobacco Use: Social History Observation Description Date Details (start date - stop date) Never Smoker NA - NA Tobacco use other than smoking: Question Answer Notes Are you an other tobacco user? No Tobacco Control (Standard) Question Answer Notes Tobacco use: Nonsmoker AUDIT-C (Standard) Question Answer Notes Did you have a drink containing alcohol in the p ast year? No Points 0 Interpretation Negative Problems Problem Type SNOMED Code ICD Code Onset Dates Problem Status W/U Status Risk Notes Problem Atherosclerosis of northwestern shoshone arteries of the extremities ([id number]) Atherosclerosis of northwestern shoshone artery of both lower extremities, with unspecified presence of clinical manifestation (I70.203) Active confirmed Vital Signs Blood pressure diastolic 70 mm Hg 02/02/2025 Height 6ft 2in in 02/02/2025 Blood pressure systolic 120 mm Hg 02/02/2025 Weight 186 lbs 02/02/2025 BMI 23.88 kg/m2 02/02/2025 Procedures Procedure Date Ordered Date Performed Result Body Sit e 20390-RGLAJTY NAIL, 6 OR MORE 05/05/2024 N/A 37791-WFTV SKIN LESIONS, OVER 4 05/05/2024 N/A 80047-IENGQDA NAIL, 6 OR MORE 07/28/2024 N/A 68525-WHNX SKIN LESIONS, OVER 4 07/28/2024 N/A 91215-OXKOPKV NAIL, 6 OR MORE 11/03/2024 N/A 82927-FNFA SKIN LESIONS, OVER 4 11/03/2024 N/A 63349-WPEICTS NAIL, 6 OR MORE 02/02/2025 N/A 50251-FPQD SKIN LESIONS, OVER 4 02/02/2025 N/A Encounters Encounter Location Date Provider Diagnosis [address] [address] 05/05/2024 Osman Blanc Atherosclerosis of northwestern shoshone artery of both lower extremities, with unspecified presence of clinical manifestation I70.203 ; Tinea unguium B35.1 ; Pain in right toe(s) M79.674 ; Pain in left toe(s) M79.675 and Xerosis of skin L85.[address] [address] 07/28/2024 Osman Blanc Atherosclerosis of northwestern shoshone artery of both lower extremities, with unspecified presence of clinical manifestation I70.203 ; Tinea unguium B35.1 ; Pain in right toe(s) M79.674 and Pain in left toe(s) M79.[address] [address] 11/03/2024 Osmansergio HernandezJayashree Atherosclerosis of northwestern shoshone artery of both lower extremities, with unspecified presence of clinical manifestation I70.203 ; Tinea unguium B35.1 ; Pain in right toe(s) M79.674 and Pain in left toe(s) M79.675 [facility] [address] [address] 02/02/2025 Osman Blanc Atherosclerosis of northwestern shoshone artery of both lower extremities, with unspecified presence of clinical manifestation I70.203 ; Tinea unguium B35.1 ; Pain in right toe(s) M79.674 and Pain in left toe(s) M79.675 Assessments Encounter Date Diagnosis (ICD Code) Assessment Notes Treatment Notes Treatment Clinical Notes Section Notes 05/05/2024 Tinea unguium (ICD-10 - B35.1) 05/05/2024 Atherosclerosis of northwestern shoshone artery of both lower extremities, with unspecified presence of clinical manifestation (ICD-10 - I70.203) 07/28/2024 Tinea unguium (ICD-10 - B35.1) 07/28/2024 Atherosclerosis of northwestern shoshone artery of both lower extremities, with unspecified presence of clinical manifestation (ICD-10 - I70.203) 11/03/2024 Tinea unguium (ICD-10 - B35.1) 11/03/2024 Atherosclerosis of northwestern shoshone artery of both lower extremities, with unspecified presence of clinical manifestation (ICD-10 - I70.203) 02/02/2025 Tinea unguium (ICD-10 - B35.1) 02/02/2025 Atherosclerosis of northwestern shoshone artery of both lower extremities, with unspecified presence of clinical manifestation (ICD-10 - I70.203) 11/03/2024 Pain in right toe(s) (ICD-10 - M79.674) 02/02/2025 Pain in right toe(s) (ICD-10 - M79.674) 07/28/2024 Pain in right toe(s) (ICD-10 - M79.674) 05/05/2024 Pain in right toe(s) (ICD-10 - M79.674) 05/05/2024 Pain in left toe(s) (ICD-10 - M79.675) 07/28/2024 Pain in left toe(s) (ICD-10 - M79.675) 11/03/2024 Pain in left toe(s) (ICD-10 - M79.675) 02/02/2025 Pain in left toe(s) (ICD-10 - M79.675) 05/05/2024 Xerosis of skin (ICD-10 - L85.3) Plan Of Treatment Pending Test Test Name Order Date 15535-CSDJLYE NAIL, 6 OR MORE 04/10/2022 02498-AGAXZWB NAIL, 6 OR MORE 07/10/2022 59320-VVGGCQS NAIL, 6 OR MORE 10/12/2022 91995-DVIRSUJ NAIL, 6 OR MORE 01/25/2023 34747-POONUQQ NAIL, 6 OR MORE 04/23/2023 30347-KZBQGAY NAIL, 6 OR MORE 07/26/2023 35672-HZTSRPE NAIL, 6 OR MORE 11/01/2023 18353-QFPSVGC NAIL, 6 OR MORE 01/31/2024 52487-QYUWPJI NAIL, 6 OR MORE 05/05/2024 87276-ZZXVTAK NAIL, 6 OR MORE 07/28/2024 02838-XLXLVAF NAIL, 6 OR MORE 11/03/2024 30633-MRPDLVX NAIL, 6 OR MORE 02/02/2025 53831-RFDW SKIN LESIONS, OVER 4 02/03/20 25 66573-QYHX SKIN LESIONS, OVER 4 11/03/19 25 77311-WEEI SKIN LESIONS, OVER 4 07/28/20 24 48730-RWIF SKIN LESIONS, OVER 4 05/05/20 24 87298-VNEN SKIN LESIONS, OVER 4 01/31/20 24 56165-VJSA SKIN LESIONS, OVER 4 11/01/19 24 50036-CSCP SKIN LESIONS, OVER 4 07/26/20 23 45389-ZLXB SKIN LESIONS, OVER 4 04/23/20 23 60689-EHBE SKIN LESIONS, OVER 4 01/26/20 23 03182-FTDM SKIN LESIONS, OVER 4 10/12/20 22 58175-PUOZ SKIN LESIONS, OVER 4 07/10/20 22 61557-ARIH SKIN LESIONS, OVER 4 04/10/20 22 Next Appt Details Provider Name:Osman Blanc , 05/04/2025 10:00:00 AM, [address] [place] [address], [place], [address], Insurance Providers Payer Name Payer Address Payer Phone Subscriber Number Group Number Insured Name Patient Relationship to Insured Coverage Start Date Coverage End Date [employer] Medicare Adv-[id number] [address] [address] [place] [address] [id number] Lynette Sanchez Self - patient is the insured Medical (General) History Medical History History ICD Code high blood pressure measles chicken pox bone implants Joint implants/screws Cholesterol Surgical History Surgery Date(Month/Year) right hip surgery 07/2015 Hospitalization History Reason Date(Month/Year) [facility]- Unknown Headache Ede natalie for 5 days same day took off med simvastatin 12/25/22
--- OUTSIDE RECORDS SUMMARY | 2025-03-15 14:20 | XMS_ITS ---
Author Name [facility] [place] [facility] [place] [facility] [place] Address [address] [place] [address] Care Team Providers Care Cardiology Tech Name Role Phone YANETH JOE Primary Care [...] Policy 's Name Patient's Relationship to Policy [facility] ([facility]) MEDICARE ADVANTAGE [facility] ([facility]) Oct 28, 2019 [id number] IVANA CAM PATIENT Selected Encounter This section includes the information on record at [place] for the Encounter. Date/Time Encounter Type Encounter Description Reason Provider Source March 26, 2024 09:00 AM PSYTX W PT W E/M 30 [facility] - IND ICD-10-CM F10.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, in remission MARIO WIGIGNS Ayah Encounter Template Text not used by [place] Assessments - Encounter Diagnoses This section includes the primary and secondary diagnoses documented for the Encounter. Date/Time Primary/Secondary Diagnosis Diagnosis Name Provider Source March 26, 2024 10:10 PM PRIMARY Alcohol dependence, in remission [facility]IGGINS [facility] March 26, 2024 10:10 PM SECONDARY Contact with and exposure to other hazardous substances MARIO WIGGINS [place] [facility] [place] [facility] March 26, 2024 10:10 PM SECONDARY Post-traumatic stress disorder, chronic MARIO WIGGINS [place] [facility] [place] [facility] Plan of Treatment: Future Appointments (+ 6 months) and Future Tests (+/- 45 days) The Plan of Treatment section includes future care activities for the patient from all [place] [facility]. This section includes future appointments and future [...] AMBULATORY - PSYCHIATRY [facility] [place] [facility] Apr 06, 2024 02:00 PM AMBULATORY - PSYCHIATRY [facility] [place] [facility] May 04, 2024 02:00 PM AMBULATORY - PSYCHIATRY [facility] [place] [facility] May 11, 2024 02:00 PM AMBULATORY - PSYCHIATRY [facility] [place] [facility] May 18, 2024 02:00 PM AMBULATORY - PSYCHIATRY [facility] [place] [facility] Jun 01, 2024 02:00 PM AMBULATORY - PSYCHIATRY [facility] [place] [facility] Jun 08, 2024 02:00 PM AMBULATORY - PSYCHIATRY [facility] [place] [facility] Jun 15, 2024 02:00 PM AMBULATORY - PSYCHIATRY [facility] [place] [facility] Jun 22, 2024 02:00 PM AMBULATORY - PSYCHIATRY [facility] [place] [facility] Jul 13, 2024 02:00 PM AMBULATORY - PSYCHIATRY [facility] [place] [facility] Jul 13, 2024 02:30 PM AMBULATORY - REHAB MEDICIN E [facility] [place] [facility] Jul 16, 2024 07:15 AM AMBULATORY - NONE [facility] [place] [facility] Jul 20, 2024 02:00 PM AMBULATORY - PSYCHIATRY [facility] [place] [facility] Jul 27, 2024 02:00 PM AMBULATORY - PSYCHIATRY [facility] [place] [facility] Aug 03, 2024 02:00 PM AMBULATORY - PSYCHIATRY [place] [facility] [place] [facility] Aug 24, 2024 02:00 PM AMBULATORY - PSYCHIATRY [place] [facility] [place] [facility] Aug 31, 2024 02:00 PM AMBULATORY - PSYCHIATRY [place] [facility] [place] [facility] Sep 08, 2024 08:00 AM AMBULATORY - [facility] Sep 08, 2024 09:00 AM [facility] [place] [facility] Sep 14, 2024 02:00 PM AMBULAT[facility] Lab Results: +/- 30 [...] Type Result - Unit Interpretation Reference Range Specimen Type Comment March 03, 2024 07:46 AM [facility] BASIC METABOLIC PANEL (non-fasting) SERUM Spe cimen Type: SERUM No comment entered. Ordering Provider: YANETH JOE Report Released Date/Time: February 28, 2024 10:29 AM Reporting Lab: [facility] [address] [facility] [address] Performing Lab: [address] [address] UREA NITROGEN 20 mg/dL 7-25 GLUCOSE 105 mg/dL H 65-100 SODIUM 143 mmol/L 135-145 POTASSIUM 4.6 mmol/L 3.5-5.0 CHLORIDE 107 mmol/L 100-110 CO2 26 meq/L 20-30 CREATININE, Serum 1.16 mg/dL 0.50-1.40 eGFR(CKD-EPI 2020) 65 mL/min >60 March 03, 2024 07:46 AM [facility] LIPID PANEL, NON FASTING SERUM Specimen Type: SERUM No comment entered. Ordering Provider: YANETH JOE Report Released Date/Time: February 28, 2024 10:29 AM Reporting Lab: [facility] [place] [facility] [address] [facility] [address] Performing Lab: [place] [facility] [place] [facility] [address] [facility] [address] CHOLESTEROL 190 mg/dL TRIGLYCERIDE 68 mg/dL 0-150 LDL calculated 102 mg/dL 0-129 CHOL/HDL 2.6 HDL CHOLESTEROL 74 mg/dL H 40-60 Social History: Smoking Status (Most current) and [...] 09, 2024 09:00 AM VA-TOBACCO FORMER USER [place] [facility] [place] [facility] Tobacco Use History This section includes a history of the smoking, or tobacco-related health factors, that were collected on or before the date of the Encounter. The data comes from the [place] facility where the Encounter took place. Date/Time Smoking Status/Tobac co Use Comment Facility March 09, 2024 09:00 AM VA-TOBACCO QUIT 15 YRS OR MORE [facility] [place] [facility] March 18, 2023 02:30 PM VA-TOBACCO FORMER USER [facility] [place] [facility] March 18, 2023 02:30 PM VA-TOBACCO QUIT 15 YRS OR MORE [facility] [place] [facility] Jan 11, 2022 08:30 AM VA-TOBACCO FORMER USER [facility] [place] [facility] Jan 11, 2022 08:30 AM VA-TOBACCO QUIT 15 YRS OR MORE [facility] [place] [facility] Dec 26, 2020 09:00 AM VA-TOBACCO FORMER USER [facility] [place] [facility] Dec 26, 2020 09:00 AM VA-TOBACCO QUIT 15 YRS OR MORE [facility] [place] [facility] Dec 08, 2019 09:16 AM VA-TOBACCO FORMER USER [facility] [place] [facility] Dec 08, 2019 09:16 AM VA-TOBACCO QUIT 15 YRS OR MORE [facility] Oct 14, 2018 02:56 PM [facility] Oct 14, 2018 02:56 PM [place]-TOBACCO QUIT 15 YRS OR MORE [facility] Dec 12, 2017 09:20 AM QUIT TOBACCO USE > 7 YEARS AGO quit > 30 yrs ( 2-3 pks a day) [facility] Advance Directives: All historical and current [...] 2019 ADVANCE DIRECTIVE VAN MORENO [facility] Feb 08, 2019 ADVANCE DIRECTIVE SAMM BRINK [facility] Encounter Notes: All associated encounter [...] MALE was seen for scheduled follow-up at [facility] for Dx: PTSD, ION by history He is known to chart writer and visit was for 30 minutes. Active problems - Computerized Problem List is the source for the followin. Incomplete bladder emptying 2. Adult screening status 3. Hyperlipidemia 4. Patient requires hospitalization 5. Chronic alcoholism in remission 6. Chronic post-traumatic stress disorder 7. Under care of multiple providers 8. Anaphylactic reaction 9. History of surgery 10. Hypertension 11. Trauma CHART REVIEW: Gay is a patient of Dr. Patton and Pact 1, he likes his PCP and states he feels that he gets good care at [place]. He is also seen by dental clinic and is a group member with ANSHU Chris for PTSD therapy. Continues weekly groups. PAST PSYCHIATRIC HISTORY: Gay started treatment at the [facility] in 2008, he had a comprehensive exam here at the [place] in 2009 and began audiology treatment at [facility] then started mental health treatment for PTSD in 2018 with ANSHU Chris. He was treated by Dr. Radford over many years until that doctor retired. PAST MEDICATION TRIALS: Naltrexone STRENGTHS: conversant and intelligent :[employer] FROM Oct TO Sep SUBJECTIVE: The was seen today for routine follow up; visit lasted for 30 minutes. Gay reports doing fine, he and continue to get along well. No alcohol for over four years, not smoking for many years. No use of other drugs. When Gay totally stopped alcohol he found he could lose a good deal of weight, which made him happy. He is maintaining weight and healthy lifestyle and enjoys. Alan is doing well on current stabilizing med, denies side effects or other med issues and wants to continue current med regime. Alan relates that his 68 year old sister is now in a F[facility] where she is safe. He visits almost [...] not need to worry as much. Currently [facility] finally got her [place], so she can stay in the Fpc. She has nice staff and residents per [...] and he was also told about the 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 Health/Medical Questions All patients who report a health/medical concern will receive follow-up from a clinician. For urgent or emergent concerns, they were advised to follow local facility policy. Contact information for local resources: Benefits/Claim for Disability Compensation Questions:National VBA [place] Healthcare Enrollment: [place] Eligibility direct dialed at [phone] Registry: [facility] Coordinator ext [phone] Toxic Exposure Screening Follow-Up reminder is needed. Name of person notified: toni wiggins /gio/ TONI WIGGINS RN,MSN,PSYCH N.P., STAFF CLINICAL NURSE SPECIALIST Signed: 03/26/2024 22:10 05/25/2024 ADDENDUM STATUS: COMPLETED Toxic Exposure Screening Follow-Up: Exposure Concern(s): 03/26/2024 Other Environmental Concerns - Toxic Exposure Concern served in [facility] and does know for sure about exposures 03/18/2023 Doesnt Know - Toxic Exposure Concern Follow-up Question(s): 03/26/2024 Health/Medical Questions - Toxic Exposure Concern 03/18/2023 No Questions - Toxic Exposure Concern Gay declines further assistance at this time. /gio/ TONI WIGGINS RN,MSN,PSYCH N.P., STAFF CLINICAL NURSE SPECIALIST Signed: 05/25/2024 11:42 TONI WIGGINS [place] [facility]
--- OUTSIDE RECORDS SUMMARY | 2025-03-15 14:20 | XMS_ITS ---
Author Name [facility] [place] Organization [place] Address [address] [place] [address] Care Team Providers Care Classified Ad Taker Name Role Phone YANETH JOE Primary Care [...] Name Patient's Relationship to Policy [facility] (WNR) MEDICARE ADVANTAGE [facility] ([place]) Oct 28, 2019 [id number] TUTU,JE JONAS PATIENT Selected Encounter This [...] PRIMARY Post-traumatic stress disorder, unspecified MARK,JAQUELIN E [facility] Plan of Treatment: Future Appointments (+ 6 months) and Future Tests (+/- 45 days) The Plan of Treatment section includes future care activities for the patient from all [facility]. This section includes future appointments and [...] AMBULATORY - PSYCHIATRY [facility] [place] [facility] Jul 13, 2024 02:00 PM AMBULATORY - PSYCHIATRY [facility] [place] [facility] Jul 13, 2024 02:30 PM AMBULATORY - REHAB MEDICIN E [facility] [place] [facility] Jul 16, 2024 07:15 AM AMBULATORY - NONE [facility] [place] [facility] Jul 20, 2024 02:00 PM AMBULATORY - PSYCHIATRY [facility] [place] [facility] Jul 27, 2024 02:00 PM AMBULATORY - PSYCHIATRY [facility] [place] [facility] Aug 03, 2024 02:00 PM AMBULATORY - PSYCHIATRY [facility] [place] [facility] Aug 24, 2024 02:00 PM AMBULATORY - PSYCHIATRY [facility] [place] [facility] Aug 31, 2024 02:00 PM AMBULATORY - PSYCHIATRY [facility] [place] [facility] Sep 08, 2024 08:00 AM AMBULATORY - MEDICINE [facility] [place] [facility] Sep 08, 2024 09:00 AM AMBULATORY - PSYCHIATRY [facility] [place] [facility] Sep 14, 2024 02:00 PM AMBULATORY - PSYCHIATRY [facility] [place] [facility] Sep 21, 2024 02:00 PM AMBULATORY - PSYCHIATRY [facility] [place] [facility] Oct 05, 2024 02:00 PM AMBULATORY - PSYCHIATRY [facility] [place] [facility] Oct 12, 2024 02:00 PM AMBULATORY - PSYCHIATRY [facility] [place] [facility] Oct 19, 2024 02:00 PM AMBULATORY - PSYCHIATRY [facility] [place] [facility] Oct 27, 2024 11:45 AM AMBULATORY - PSYCHIATRY [facility] [place] [facility] Nov 02, 2024 02:00 PM AMBULATORY - PSYCHIATRY [place] [facility] [place] [facility] Nov 23, 2024 02:00 PM AMBULATORY - PSYCHIATRY [place] [facility] [place] [facility] Nov 26, 2024 11:45 AM AMBULATORY - MEDICINE [place] [facility] [place] [facility] Social History: Smoking Status (Most [...] 09, 2024 09:00 AM VA-TOBACCO FORMER USER [place] [facility] [place] [facility] Tobacco Use History This section includes a history of the smoking, or tobacco-related health factors, that were collected on or before the date of the Encounter. The data comes from the [place] facility where the Encounter took place. Date/Time Smoking Status/Tobac co Use Comment Facility March 09, 2024 09:00 AM VA-TOBACCO QUIT 15 YRS OR MORE [facility] [place] [facility] March 18, 2023 02:30 PM VA-TOBACCO FORMER USER [facility] [place] [facility] March 18, 2023 02:30 PM VA-TOBACCO QUIT 15 YRS OR MORE [facility] [place] [facility] Jan 11, 2022 08:30 AM VA-TOBACCO FORMER USER [facility] [place] [facility] Jan 11, 2022 08:30 AM VA-TOBACCO QUIT 15 YRS OR MORE [facility] [place] [facility] Dec 26, 2020 09:00 AM VA-TOBACCO FORMER USER [facility] [place] [facility] Dec 26, 2020 09:00 AM VA-TOBACCO QUIT 15 YRS OR MORE [facility] [place] [facility] Dec 08, 2019 09:16 AM VA-TOBACCO FORMER USER [facility] [place] [facility] Dec 08, 2019 09:16 AM VA-TOBACCO QUIT 15 YRS OR MORE [facility] [place] [facility] Oct 14, 2018 02:56 PM VA-TOBACCO FORMER USER [facility] [place] [facility] Oct 14, 2018 02:56 PM VA-TOBACCO QUIT 15 YRS OR MORE [facility] Dec 12, 2017 09:20 AM QUIT TOBACCO USE > 7 YEARS AGO quit > 30 yrs ( 2-3 pks a day) [facility] Advance Directives: All historical and current Section [...] Feb 09, 2019 ADVANCE DIRECTIVE VAN MORENO [facility] Feb 08, 2019 ADVANCE DIRECTIVE BELEMSAMM ZEV [facility] Encounter Notes: All associated encounter notes This section contains the clinical notes associated to the Encounter. Date/Time Encounter Note(s) Provider Source Jun 15, 2024 02:00 PM SOCIAL WORK GROUP COUNSELING NOTE: LOCAL TITLE: SOCIAL WORK GROUP NOTE STANDARD TITLE: SOCIAL WORK GROUP COUNSELING NOTE DATE OF NOTE: JUN 15, 2024@14:00 ENTRY DATE: JUN 15, 2024@15:24:22 AUTHOR: MANDY FLORES COSIGNER: URGENCY: STATUS: COMPLETED [...] member who is ill. 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
--- OUTSIDE RECORDS SUMMARY | 2025-03-15 14:20 | XMS_ITS | Continuity of Care Document ---
Author Name [facility] Organization [facility] Care Team Providers Care [employer] Name Role Phone [facility] Unavailable Unavailable Problems Combined list of problems [...] at 4.1cm on imaging 12[facility]23 [facility] Emphysema of lung Active Condition Oc t 2021 Entered By: NADIA DHALIWAL Comment: On chest CT 07/2022 [facility] Exposure to potentially hazardous substance (SCT [id number]) Active Condition March 27 Entered By: ALIS JACOBO Comment: Entered automatically through JULIET Problem List documentation program [facility] Hyperlipidemia Active Condition [facility] Hypertension Active Condition [facility] Prostate Specific Antigen Above Reference Range (SCT [id number]) Active Condition March 09, 2025 Entered By: YANETH JOE Comment: sees Dr. Matthias Gray, +family h/o prostate ca- father, +AO exposure. MRI shows small prostate ca, opted for no bx, just surveillance [facility] Diagnosis: ICD-10-CM I77.810 Thoracic aortic ectasia Active Diagnosis [facility] [...] blood pressure w/o abnormal findings Active Diagnosis [facility] Medications Combined list of outpatient medications from [...] NOT TAKE WITH GRAPEFRU IT JUICE ORAL SUSPEND ED 12/16/2025 [id number] FURCOLO,T TITO 2024 90 [facility] AMLODIPINE BESYLATE 5MG TAB TAKE ONE TABLET BY MOUTH ONCE DAILY FOR BLOOD PRESSURE /HEART, DO NOT TAKE WITH GRAPEFRU IT JUICE ORAL DISCONT INUED 12/17/2024 [id number] MI DODD JAWED 2023 90 [facility] BENAZEPRIL HCL 20MG TAB TAKE ONE TABLET BY MOUTH EVERY MORNING ORAL ACTIVE Zack LANDRUM 2017 [facility] EPINEPHRINE (EQV-EPI-PE N) 0.3MG/0.3ML INJECTOR INJECT DIRECTED INTRAMUS CULARLY ONCE DAILY NEEDED FOR LIFE THREATEN ING ALLERGIC REACTION INTRAM USCULA R ACTIVE 03/10/2026 [id number] FURCOLO,T TITO 2024 2 [facility] EPINEPHRINE (EQV-EPI-PE N) 0.3MG/0.3ML INJECTOR INJECT DIRECTED INTRAMUS CULARLY ONCE DAILY NEEDED FOR LIFE THREATEN ING ALLERGIC REACTION INTRAM USCULA R DISCONT INUED 03/10/2025 [id number] FURCOLO,T TITO 2023 2 [facility] FEXOFENADIN E HCL 180MG TAB TAKE ONE TABLET BY MOUTH ONCE DAILY ORAL ACTIVE LI ZACARIAS 2020 [facility] FINASTERIDE 5MG TAB TAKE ONE TABLET BY MOUTH ONCE DAILY ORAL ACTIVE 02/09/2026 [id number] CATINA GRAY MD 2024 90 [facility] PRAZOSIN HCL 2MG CAP TAKE ONE CAPSULE BY MOUTH AT BEDTIME FOR NIGHTMAR ES ORAL SUSPEND ED 03/10/2026 [id number] 5 FURCOLO,T TITO 2024 90 [facility] PRAZOSIN HCL 2MG CAP TAKE ONE CAPSULE BY MOUTH AT BEDTIME FOR NIGHTMAR ES ORAL DISCONT INUED 09/09/2025 [id number] TONI WIGGINS 2024 90 [facility] PRAZOSIN HCL 2MG CAP TAKE ONE CAPSULE BY MOUTH AT BEDTIME FOR NIGHTMAR ES ORAL DISCONT INUED 03/27/2025 [id number] TONI WIGGINS 2023 90 [facility] PRAZOSIN HCL 2MG CAP TAKE ONE CAPSULE BY MOUTH AT BEDTIME ORAL DISCONT INUED 10/24/2024 [id number] TONI WIGGINS 2022 90 [facility] ROSUVASTATI N CA 20MG TAB TAKE ONE TABLET BY MOUTH ONCE DAILY FOR CHOLESTE ROL ORAL SUSPEND ED 03/10/2026 [id number] FURCOLO,T TITO 2024 90 [facility] ROSUVASTATI N CA 20MG TAB TAKE ONE TABLET BY MOUTH ONCE DAILY FOR CHOLESTE ROL ORAL DISCONT INUED 03/10/2025 [id number] FURCOLO,T TITO 2023 90 [facility] SODIUM FLUORIDE 1.1% TOOTHPASTE BRUSH SMALL AMOUNT TO TEETH TWICE DAILY FOR TOOTH DECAY PREVENTI ON DENTAL ACTIVE 10/01/2025 [id number] CARLOS SOUTH 2023 204 [facility] Allergies, Adverse Reactions, Alerts Combined list of allergies from Department of Defense and Veterans Affairs facilities. It does not include entries that were removed or entered in error. Substance Category Reaction Severity Reaction type Status Date Reported Comments Source BEE STINGS Propensity to adverse reaction (finding) Anaphylaxis active 8 [facility] ENVIRONMENTA L ALLERGENS Propensity to adverse reaction (finding) Nasal congestion active 8 [facility] SHELLFISH Propensity to adverse reactions to food (finding) active 8 [facility] Immunizations Combined list of available immunizations from the Department of [facility] and Veterans Affairs facilities. Immunization Series Date Given Administered By Site Reaction Lot Number CVX Code Drug Analytics Architect Status Comments Source RSV, RECOMBINANT, PROTEIN SUBUNIT RSVPREF3, ADJUVANT RECONSTITUTED , 0.5 ML, PF 2024 TAE WO[facility]S RIGHT DELTO ID [id number] complet ed Completed Series, ADMINISTE [place] AT [place], [facility] INFLUENZA, UNSPECIFIED FORMULATION 2023 88 complet ed Completed Series, HISTORICA L INFORMATI ON - FROM OTHER REGISTRY, [facility] INFLUENZA, UNSPECIFIED FORMULATION 2022 88 complet ed HISTORICA L INFORMATI ON - FROM PATIENT'S RECALL, [facility] COVID-19 (MODERNA), MRNA, LNP-S, PF, 50 MCG/0.5 ML (AGES 12+ YEARS) 1 2022 312 complet ed HISTORICA L INFORMATI ON - FROM PATIENT'S RECALL, [facility] INFLUENZA, INJECTABLE, QUADRIVALENT, PRESERVATIVE FREE 2021 150 complet ed [facility] PNEUMOCOCCAL CONJUGATE PCV20, POLYSACCHARID E [id number] CONJUGATE, ADJUVANT, PF 2021 216 complet ed [facility] COVID-19 (MODERNA), MRNA, LNP-S, PF, 100 MCG/0.5ML DOSE OR 50 MCG/0.25ML DOSE 3 2021 207 complet ed MOD; [id number]; 2 [facility] COVID-19 (MODERNA), MRNA, LNP-S, PF, 100 MCG/0.5 ML DOSE 3 2020 207 complet ed [id number] 09/09/21 @ 1915 [facility] INFLUENZA, UNSPECIFIED FORMULATION 2020 88 complet ed [facility] COVID-19 (MODERNA), MRNA, LNP-S, PF, 100 MCG/0.5 ML DOSE 2 2020 207 complet ed MOD; [id number]; 1 [facility] COVID-19 (MODERNA), MRNA, LNP-S, PF, 100 MCG/0.5 ML DOSE 1 2020 207 complet ed MOD; [id number]; 1 [facility] [...] INFLUENZA, SEASONAL, INJECTABLE 2017 141 complet ed [facility] ZOSTER RECOMBINANT 2 2017 187 complet ed patient will bering documents [facility] ZOSTER RECOMBINANT 1 2017 187 complet ed patient is requestin g [facility] INFLUENZA, SEASONAL, INJECTABLE 2016 141 complet ed [id number] 65+ Lot: [id number] [facility] INFLUENZA, SEASONAL, INJECTABLE 2016 141 complet ed PCP office [facility] ZOSTER LIVE 2010 121 complet ed Lot No. [id number] 0.5 mL Left Deltoid [facility] [place] [facility] Results Combined list of recent chemistry, hematology and other laboratory results from Department of Defense and Veterans Affairs, ranging from 15 months to all on record, depending upon the facility. Order Name Results Value Reference Range Date Interpretation Specimen Comments Source PSA PROSTATE SPECIFIC AG [MASS/VOLUM E] IN SERUM OR PLASMA BY IMMUNOASSAY 5.2 ng/mL 0.0 - 4.0 03/04 H Specimen Type: SERUM No comment entered. Ordering Provider: KARTHIKEYAN JOE Report Released Date/Time: Sep 08, 2024 08:18 AM Reporting Lab: [facility] [address] [address] Performing Lab: [facility] [address] [address] [facility] LIPID PANEL FASTING CHOLESTEROL [MASS/VOLUM E] IN SERUM OR PLASMA 210 mg/dL 03/04 H Specimen Type: SERUM No comment entered. Ordering Provider: KARTHIKEYAN JOE Report Released Date/Time: Sep 08, 2024 08:18 AM Reporting Lab: [facility] [address] [address] Performing Lab: [facility] [address] [facility] LIPID PANEL FASTING TRIGLYCERID E [MASS/VOLUM E] IN SERUM OR PLASMA 57 mg/dL 0 - 150 03/04 Specimen Type: SERUM No comment entered. Ordering Provider: KARTHIKEYAN JOE Report Released Date/Time: Sep 08, 2024 08:18 AM Reporting Lab: [facility]USE[address] [address] Performing Lab: [facility]ENTERUSE[address] [address] [facility]USE [facility] LIPID PANEL FASTING CHOLESTEROL IN LDL [MASS/VOLUM E] IN SERUM OR PLASMA BY CALCULATION 124 mg/dL 0 - 129 03/04 Specimen Type: SERUM No comment entered. Ordering Provider: KARTHIKEYAN JOE Report Released Date/Time: Sep 08, 2024 08:18 AM Reporting Lab: [facility] [place] [facility] [address] [facility] [address] Performing Lab: [facility] [place] [facility] [address] [facility] [facility] [address] [facility] [facility] LIPID PANEL FASTING CHOLESTEROL .TOTAL/CHOL ESTEROL IN HDL [MASS RATIO] IN SERUM OR PLASMA 2.8 03/04 Specimen Type: SERUM No comment entered. Ordering Provider: KARTHIKEYAN JOE Report Released Date/Time: Sep 08, 2024 08:18 AM Reporting Lab: [facility] [place] [facility] [address] [facility] [facility] [address] Performing Lab: [facility] [place] [address] [address] [facility] [place] [facility] LIPID PANEL FASTING CHOLESTEROL IN HDL [MASS/VOLUM E] IN SERUM OR PLASMA 75 mg/dL 40 03/04 Specimen Type: SERUM No comment entered. Ordering Provider: KARTHIKEYAN JOE Report Released Date/Time: Sep 08, 2024 08:18 AM Reporting Lab: [facility] [place] [facility] [address] [facility] [address] Performing Lab: [facility] [place] [facility] [address] [facility] [address] [facility] [place] [facility] BASIC METABOLIC PANEL (fasting) UREA NITROGEN [MASS/VOLUM E] IN SERUM OR PLASMA 19 mg/dL 8 - 26 03/04 Specimen Type: SERUM No comment entered. Ordering Provider: KARTHIKEYAN JOE Report Released Date/Time: Sep 08, 2024 08:18 AM Reporting Lab: [facility] [place] [facility] [address] [facility] [address] Performing Lab: [facility] [place] [facility] [address] [facility] [address] [facility] [place] [facility] BASIC METABOLIC PANEL (fasting) GLUCOSE [MASS/VOLUM E] IN SERUM OR PLASMA 87 mg/dL 65 - 100 05/08 /2025 Specimen Type: SERUM No comment entered. Ordering Provider: KARTHIKEYAN JOE Report Released Date/Time: Sep 08, 2024 08:18 AM Reporting Lab: [facility] [place] [facility] [address] [facility] [address] Performing Lab: [facility] [place] [facility] [address] [facility] [address] [facility] [place] [facility] BASIC METABOLIC PANEL (fasting) SODIUM [MOLES/VOLU ME] IN SERUM OR PLASMA 143 mmol/L 136 - 145 03/04 Specimen Type: SERUM No comment entered. Ordering Provider: KARTHIKEYAN JOE Report Released Date/Time: Sep 08, 2024 08:18 AM Reporting Lab: [facility] [place] [facility] [address] [facility] [address] Performing Lab: [facility] [place] [facility] [address] [facility] [address] [facility] [place] [facility] BASIC METABOLIC PANEL (fasting) POTASSIUM [MOLES/VOLU ME] IN SERUM OR PLASMA 5.0 mmol/L 3.5 - 5.1 03/04 Specimen Type: SERUM No comment entered. Ordering Provider: KARTHIKEYAN JOE Report Released Date/Time: Sep 08, 2024 08:18 AM Reporting Lab: [facility] [place] [facility] [address] [facility] [address] Performing Lab: [facility] [place] [facility] [address] [facility] [address] [facility] [place] [facility] BASIC METABOLIC PANEL (fasting) CHLORIDE [MOLES/VOLU ME] IN SERUM OR PLASMA 106 mmol/L 98 - 107 03/04 Specimen Type: SERUM No comment entered. Ordering Provider: KARTHIKEYAN JOE Report Released Date/Time: Sep 08, 2024 08:18 AM Reporting Lab: [facility] [place] [facility] [address] [facility] [address] Performing Lab: [facility] [place] [facility] [address] [facility] [address] [facility] [place] [facility] BASIC METABOLIC PANEL (fasting) CARBON DIOXIDE, TOTAL [MOLES/VOLU ME] IN SERUM OR PLASMA 27 meq/L 23 - 31 03/04 Specimen Type: SERUM No comment entered. Ordering Provider: KARTHIKEYAN JOE Report Released Date/Time: Sep 08, 2024 08:18 AM Reporting Lab: [facility] [address] [address] Performing Lab: [facility] [address] [address] [facility] BASIC METABOLIC PANEL (fasting) CALCIUM [MASS/VOLUM E] IN SERUM OR PLASMA 9.8 mg/dL 8.8 - 10 03/04 Specimen Type: SERUM No comment entered. Ordering Provider: KARTHIKEYAN JOE Report Released Date/Time: Sep 08, 2024 08:18 AM Reporting Lab: [facility] [address] [address] Performing Lab: [facility] [address] [address] [facility] BASIC METABOLIC PANEL (fasting) CREATININE [MASS/VOLUM E] IN SERUM OR PLASMA 1.06 mg/dL 0.72 - 1.25 03/04 Specimen Type: SERUM No comment entered. Ordering Provider: KARTHIKEYAN JOE Report Released Date/Time: Sep 08, 2024 08:18 AM Reporting Lab: [facility]N [facility]ENTERUSE[address] [address] Performing Lab: [facility]RBRYAN [facility]OSPITALTRN [facility]USE[address] [address] [facility] BASIC METABOLIC PANEL (fasting) GLOMERULAR FILTRATION RATE/1.73 SQ M.PREDICTED [VOLUME RATE/AREA] IN SERUM, PLASMA OR BLOOD BY CREATININE- BASED FORMULA (CKD-EPI 2020) 72 mL/min 60 03/04 Specimen Type: SERUM No comment entered. Ordering Provider: KARTHIKEYAN JOE Report Released Date/Time: Sep 08, 2024 08:18 AM Reporting Lab: [facility] [facility] [address] [facility] [address] Performing Lab: [facility]N [facility]USESTON[facility] [address] [facility] [address] [facility] PSA PROSTATE SPECIFIC AG [MASS/VOLUM E] IN SERUM OR PLASMA 8.81 ng/mL 0.00 - 4.00 08/31 H Specimen Type: SERUM No comment entered. Ordering Provider: KARTHIKEYAN JOE Report Released Date/Time: March 09, 2024 09:50 AM Reporting Lab: [facility] [address] [facility] [address] Performing Lab: [address] [address] [facility] BASIC METABOLIC PANEL (non-fast ing) UREA NITROGEN [MASS/VOLUM E] IN SERUM OR PLASMA 16 mg/dL 7 - 25 08/31 Specimen Type: SERUM No comment entered. Ordering Provider: KARTHIKEYAN JOE Report Released Date/Time: March 09, 2024 09:50 AM Reporting Lab: [address] [address] Performing Lab: [address] [address] [facility] BASIC METABOLIC PANEL (non-fast ing) GLUCOSE [MASS/VOLUM E] IN SERUM OR PLASMA 106 mg/dL 65 - 100 08/31 H Specimen Type: SERUM No comment entered. Ordering Provider: KARTHIKEYAN JOE Report Released Date/Time: March 09, 2024 09:50 AM Reporting Lab: [facility] [address] [facility] [address] Performing Lab: [address] [address] [facility] BASIC METABOLIC PANEL (non-fast ing) SODIUM [MOLES/VOLU ME] IN SERUM OR PLASMA 139 mmol/L 135 - 145 08/31 Specimen Type: SERUM No comment entered. Ordering Provider: FURCOLO,TIN A Report Released Date/Time: March 09, 2024 09:50 AM Reporting Lab: [facility] [place] [facility] [address] [facility] [address] Performing Lab: [facility]ENTERUSETS [facility] [address] [facility] [address] [facility] [place] [facility] BASIC METABOLIC PANEL (non-fast ing) POTASSIUM [MOLES/VOLU ME] IN SERUM OR PLASMA 3.9 mmol/L 3.5 - 5.0 08/31 Specimen Type: SERUM No comment entered. Ordering Provider: KARTHIKEYAN JOE Report Released Date/Time: March 09, 2024 09:50 AM Reporting Lab: [facility] [place] [facility] [address] [facility] [address] Performing Lab: [facility] W[facility]N [facility]ENTERUSESTON[facility] [address] [facility] [address] [facility]ENTERUSE [facility] BASIC METABOLIC PANEL (non-fast ing) CHLORIDE [MOLES/VOLU ME] IN SERUM OR PLASMA 105 mmol/L 100 - 110 08/31 Specimen Type: SERUM No comment entered. Ordering Provider: KARTHIKEYAN JOE Report Released Date/Time: March 09, 2024 09:50 AM Reporting Lab: [facility] [place] [facility] [address] [facility] [facility] [address] Performing Lab: [facility]ENTERUSESTON[facility] [address] [facility] [address] [facility] TRN [facility]ENTERUSE [facility] BASIC METABOLIC PANEL (non-fast ing) CARBON DIOXIDE, TOTAL [MOLES/VOLU ME] IN SERUM OR PLASMA 25 meq/L 20 - 30 08/31 Specimen Type: SERUM No comment entered. Ordering Provider: KARTHIKEYAN JOE Report Released Date/Time: March 09, 2024 09:50 AM Reporting Lab: [facility] [place] [facility] [address] [facility] [address] Performing Lab: [facility]ENTERUSE[address] [address] [facility] TRN [facility]ENTERUSE [facility] BASIC METABOLIC PANEL (non-fast ing) CREATININE [MASS/VOLUM E] IN SERUM OR PLASMA 1.17 mg/dL 0.50 - 1.40 08/31 Specimen Type: SERUM No comment entered. Ordering Provider: KARTHIKEYAN JOE Report Released Date/Time: March 09, 2024 09:50 AM Reporting Lab: [facility] [address] [address] Performing Lab: [facility] [address] [address] [facility] BASIC METABOLIC PANEL (non-fast ing) GLOMERULAR FILTRATION RATE/1.73 SQ M.PREDICTED [VOLUME RATE/AREA] IN SERUM, PLASMA OR BLOOD BY CREATININE- BASED FORMULA (CKD-EPI 2020) 65 mL/min 60 08/31 Specimen Type: SERUM No comment entered. Ordering Provider: KARTHIKEYAN JOE Report Released Date/Time: March 09, 2024 09:50 AM Reporting Lab: [facility] [address] [address] Performing Lab: [facility] [address] [address] [facility] BASIC METABOLIC PANEL (non-fast ing) UREA NITROGEN [MASS/VOLUM E] IN SERUM OR PLASMA 20 mg/dL 7 - 25 03/03 Specimen Type: SERUM No comment entered. Ordering Provider: KARTHIKEYAN JOE Report Released Date/Time: February 28, 2024 10:29 AM Reporting Lab: [facility] [address] [address] Performing Lab: [facility] [address] [address] [facility] BASIC METABOLIC PANEL (non-fast ing) GLUCOSE [MASS/VOLUM E] IN SERUM OR PLASMA 105 mg/dL 65 - 100 03/03 H Specimen Type: SERUM No comment entered. Ordering Provider: KARTHIKEYAN JEO Report Released Date/Time: February 28, 2024 10:29 AM Reporting Lab: [facility] [address] [address] Performing Lab: [facility]RBRYAN [facility] HOSPITALTRN [facility]ENTERUSETS [facility] [address] [facility] [address] [facility]RBR[facility]AN [facility] HOSPITALTRN [facility]ENTERUSE [facility] BASIC METABOLIC PANEL (non-fast ing) SODIUM [MOLES/VOLU ME] IN SERUM OR PLASMA 143 mmol/L 135 - 145 03/03 Specimen Type: SERUM No comment entered. Ordering Provider: KARTHIKEYAN JOE Report Released Date/Time: February 28, 2024 10:29 AM Reporting Lab: [facility] TRN [facility]ENTERUSESTON[facility] [address] [facility] [address] Performing Lab: [facility]ANRBRYAN [facility] HOSPITALTRN [facility]ENTERUSESTON[facility] [address] [facility] [address] [facility]N [facility]ENTERUSE [facility] BASIC METABOLIC PANEL (non-fast ing) POTASSIUM [MOLES/VOLU ME] IN SERUM OR PLASMA 4.6 mmol/L 3.5 - 5.0 03/03 Specimen Type: SERUM No comment entered. Ordering Provider: KARTHIKEYAN JOE Report Released Date/Time: February 28, 2024 10:29 AM Reporting Lab: [facility]RBR[facility] HOSPITALTRN [facility]ENTERUSESTON[facility] [address] [facility] [address] Performing Lab: [facility]RL TRN [facility]ENTERUSESTON[facility] [address] [facility] [address] [facility]ANRST[facility] VINCENT'[facility] EASTN [facility]ENTERUSE [facility] BASIC METABOLIC PANEL (non-fast ing) CHLORIDE [MOLES/VOLU ME] IN SERUM OR PLASMA 107 mmol/L 100 - 110 03/03 Specimen Type: SERUM No comment entered. Ordering Provider: KARTHIKEYAN JOE Report Released Date/Time: February 28, 2024 10:29 AM Reporting Lab: [facility]RBR[facility] HOSPITALTRN [facility]ENTERUSESTON[facility] [address] [facility] [address] Performing Lab: [facility]RBR[facility] HOSPITALTRN [facility]ENTERUSEST[facility] [address] [facility] [address] [facility]N [facility] BASIC METABOLIC PANEL (non-fast ing) CARBON DIOXIDE, TOTAL [MOLES/VOLU ME] IN SERUM OR PLASMA 26 meq/L 20 - 30 03/03 Specimen Type: SERUM No comment entered. Ordering Provider: KARTHIKEYAN JOE Report Released Date/Time: February 28, 2024 10:29 AM Reporting Lab: [facility] [place] [facility] [address] [facility] [facility] [address] Performing Lab: [facility] [place] [facility] [address] [facility] [address] [facility] [place] [facility] BASIC METABOLIC PANEL (non-fast ing) CREATININE [MASS/VOLUM E] IN SERUM OR PLASMA 1.16 mg/dL 0.50 - 1.40 03/03 Specimen Type: SERUM No comment entered. Ordering Provider: KARTHIKEYAN JOE Report Released Date/Time: February 28, 2024 10:29 AM Reporting Lab: [facility] [place] [facility] [address] [facility] [address] Performing Lab: [facility] [place] [facility] [address] [facility] [address] [facility] [facility] BASIC METABOLIC PANEL (non-fast ing) GLOMERULAR FILTRATION RATE/1.73 SQ M.PREDICTED [VOLUME RATE/AREA] IN SERUM, PLASMA OR BLOOD BY CREATININE- BASED FORMULA (CKD-EPI 2020) 65 mL/min 60 03/03 Specimen Type: SERUM No comment entered. Ordering Provider: KARTHIKEYAN JOE Report Released Date/Time: February 28, 2024 10:29 AM Reporting Lab: [facility] [place] [facility] [address] [facility] [address] Performing Lab: [facility] [place] [facility] [address] [facility] [address] [facility] [place] [facility] LIPID PANEL, NON FASTING CHOLESTEROL [MASS/VOLUM E] IN SERUM OR PLASMA 190 mg/dL 03/03 Specimen Type: SERUM No comment entered. Ordering Provider: KARTHIKEYAN JOE Report Released Date/Time: February 28, 2024 10:29 AM Reporting Lab: [facility] [place] [facility] [address] [facility] [address] Performing Lab: [facility] [place] [address] [id number] [place] [facility] LIPID PANEL, NON FASTING TRIGLYCERID E [MASS/VOLUM E] IN SERUM OR PLASMA 68 mg/dL 0 - 150 03/03 Specimen Type: SERUM No comment entered. Ordering Provider: KARTHIKEYAN JOE Report Released Date/Time: February 28, 2024 10:29 AM Reporting Lab: [facility]ITALTRN [facility]USE[facility] [address] [facility] [address] Performing Lab: [facility]ENTERUSEST[facility] [address] [facility] [facility] [address] [facility]ENTERUSE [facility] LIPID PANEL, NON FASTING CHOLESTEROL IN LDL [MASS/VOLUM E] IN SERUM OR PLASMA BY CALCULATION 102 mg/dL 0 - 129 03/03 Specimen Type: SERUM No comment entered. Ordering Provider: KARTHIKEYAN JOE Report Released Date/Time: February 28, 2024 10:29 AM Reporting Lab: [facility]N [address] [address] Performing Lab: [facility] HOSPITALTRN [facility] CENTERUSE[address] [address] [facility]ENTERUSE [facility] LIPID PANEL, NON FASTING CHOLESTEROL .TOTAL/CHOL ESTEROL IN HDL [MASS RATIO] IN SERUM OR PLASMA 2.6 03/03 Specimen Type: SERUM No comment entered. Ordering Provider: KARTHIKEYAN JOE Report Released Date/Time: February 28, 2024 10:29 AM Reporting Lab: [facility]N [facility] CENTERUSE[address] [address] Performing Lab: [facility]ANRL TRN [facility] CENTERUSETS [facility] [address] [facility] [address] [facility]N [facility]ENTERUSE [facility] LIPID PANEL, NON FASTING CHOLESTEROL IN HDL [MASS/VOLUM E] IN SERUM OR PLASMA 74 mg/dL 40 - 60 03/03 H Specimen Type: SERUM No comment entered. Ordering Provider: KARTHIKEYAN JOE Report Released Date/Time: February 28, 2024 10:29 AM Reporting Lab: [facility] HOSPITALTRN [facility] CENTERUSE[address] [address] Performing Lab: [facility] HOSPITALTRN [facility] CENTERUSE[address] [address] [place] [facility] [place] [facility] LIPID PANEL FASTING CHOLESTEROL [MASS/VOLUM E] IN SERUM OR PLASMA 215 mg/dL 09/23 H Specimen Type: SERUM No comment entered. Ordering Provider: KENAN DODD Report Released Date/Time: Sep 09, 2023 03:28 PM Reporting Lab: [facility] [place] [facility] [address] [facility] [address] Performing Lab: [facility] [place] [facility] [address] [facility] [address] [place] [facility] [place] [facility] LIPID PANEL FASTING TRIGLYCERID E [MASS/VOLUM E] IN SERUM OR PLASMA 66 mg/dL 0 - 150 09/23 Specimen Type: SERUM No comment entered. Ordering Provider: KENAN DODD Report Released Date/Time: Sep 09, 2023 03:28 PM Reporting Lab: [facility] [place] [facility] [address] [facility] [address] Performing Lab: [facility] [place] [facility] [address] [facility] [address] [place] [facility] [facility] LIPID PANEL FASTING CHOLESTEROL IN LDL [MASS/VOLUM E] IN SERUM OR PLASMA BY CALCULATION 125.8 mg/dL 0 - 129 09/23 Specimen Type: SERUM No comment entered. Ordering Provider: KENAN DODD Report Released Date/Time: Sep 09, 2023 03:28 PM Reporting Lab: [facility] [place] [facility] [address] [facility] [address] Performing Lab: [facility] [place] [facility] [address] [facility] [address] [place] [facility] [place] [facility] LIPID PANEL FASTING CHOLESTEROL .TOTAL/CHOL ESTEROL IN HDL [MASS RATIO] IN SERUM OR PLASMA 2.8 09/23 Specimen Type: SERUM No comment entered. Ordering Provider: KENAN DODD Report Released Date/Time: Sep 09, 2023 03:28 PM Reporting Lab: [facility] [place] [facility] [address] [facility] [address] Performing Lab: [facility] [place] [facility] [address] [facility] [address] [facility] [place] [facility] LIPID PANEL FASTING CHOLESTEROL IN HDL [MASS/VOLUM E] IN SERUM OR PLASMA 76 mg/dL 40 - 60 09/23 H Specimen Type: SERUM No comment entered. Ordering Provider: KENAN DODD Report Released Date/Time: Sep 09, 2023 03:28 PM Reporting Lab: [facility] [place] [facility] [address] [facility] [address] Performing Lab: [facility] [place] [facility] [address] [facility] [address] [facility] [place] [facility] BASIC METABOLIC PANEL (fasting) UREA NITROGEN [MASS/VOLUM E] IN SERUM OR PLASMA 18 mg/dL 7 - 25 09/23 Specimen Type: SERUM No comment entered. Ordering Provider: KENAN DODD Report Released Date/Time: Sep 09, 2023 03:28 PM Reporting Lab: [facility] [place] [facility] [address] [facility] [address] Performing Lab: [facility] [place] [facility] [address] [facility] [address] [facility] [place] [facility] BASIC METABOLIC PANEL (fasting) GLUCOSE [MASS/VOLUM E] IN SERUM OR PLASMA 97 mg/dL 65 - 100 09/23 Specimen Type: SERUM No comment entered. Ordering Provider: KENAN DODD Report Released Date/Time: Sep 09, 2023 03:28 PM Reporting Lab: [facility] [place] [facility] [address] [facility] [address] Performing Lab: [facility] [place] [facility] [address] [facility] [address] [facility] [place] [facility] BASIC METABOLIC PANEL (fasting) SODIUM [MOLES/VOLU ME] IN SERUM OR PLASMA 146 mmol/L 135 - 145 09/23 H Specimen Type: SERUM No comment entered. Ordering Provider: KENAN DODD Report Released Date/Time: Sep 09, 2023 03:28 PM Reporting Lab: [facility] [place] [facility] [address] [facility] [address] Performing Lab: [facility] [place] [facility] [address] [facility] [address] [facility] [place] [facility] BASIC METABOLIC PANEL (fasting) POTASSIUM [MOLES/VOLU ME] IN SERUM OR PLASMA 4.9 mmol/L 3.5 - 5.0 09/23 Specimen Type: SERUM No comment entered. Ordering Provider: KENAN DODD Report Released Date/Time: Sep 09, 2023 03:28 PM Reporting Lab: [facility] [place] [facility] [address] [facility] [address] Performing Lab: [facility] [place] [facility] [address] [facility] [address] [facility] [place] [facility] BASIC METABOLIC PANEL (fasting) CHLORIDE [MOLES/VOLU ME] IN SERUM OR PLASMA 108 mmol/L 100 - 110 09/23 Specimen Type: SERUM No comment entered. Ordering Provider: KENAN DODD Report Released Date/Time: Sep 09, 2023 03:28 PM Reporting Lab: [facility] [place] [facility] [address] [address] Performing Lab: [facility] [place] [facility] [address] [address] [facility] [place] [facility] BASIC METABOLIC PANEL (fasting) CARBON DIOXIDE, TOTAL [MOLES/VOLU ME] IN SERUM OR PLASMA 28 meq/L 20 - 30 09/23 Specimen Type: SERUM No comment entered. Ordering Provider: KENAN DODD Report Released Date/Time: Sep 09, 2023 03:28 PM Reporting Lab: [facility] [place] [facility] [address] [facility] [address] Performing Lab: [facility] [place] [facility] [address] [address] [facility] [place] [facility] BASIC METABOLIC PANEL (fasting) CREATININE [MASS/VOLUM E] IN SERUM OR PLASMA 1.08 mg/dL 0.50 - 1.40 09/23 Specimen Type: SERUM No comment entered. Ordering Provider: KENAN DODD Report Released Date/Time: Sep 09, 2023 03:28 PM Reporting Lab: [facility] [place] [facility] [address] [facility] [address] Performing Lab: [facility] [place] [facility] [address] [address] [facility] [place] [facility] BASIC METABOLIC PANEL (fasting) GLOMERULAR FILTRATION RATE/1.73 SQ M.PREDICTED [VOLUME RATE/AREA] IN SERUM, PLASMA OR BLOOD BY CREATININE- BASED FORMULA (CKD-EPI 2020) 72 mL/min 60 09/23 Specimen Type: SERUM No comment entered. Ordering Provider: KENAN DODD Report Released Date/Time: Sep 09, 2023 03:28 PM Reporting Lab: [facility] [place] [address] [address] Performing Lab: [facility] [place] [address] [address] [facility] [place] [facility] CBC AND DIFF (AUTO) LEUKOCYTES [#/VOLUME] IN BLOOD BY AUTOMATED COUNT 5.74 10*3/u L 4.50 - 11.00 09/23 Specimen Type: BLOOD No comment entered. Ordering Provider: KENAN DODD Report Released Date/Time: Sep 09, 2023 03:28 PM Reporting Lab: [facility] [place] [address] [address] Performing Lab: [facility] [place] [facility] [address] [facility] [address] [facility] [place] [facility] CBC AND DIFF (AUTO) ERYTHROCYTE S [#/VOLUME] IN BLOOD BY AUTOMATED COUNT 5.55 10*6/u L 4.23 - 5.66 09/23 Specimen Type: BLOOD No comment entered. Ordering Provider: KENAN DODD Report Released Date/Time: Sep 09, 2023 03:28 PM Reporting Lab: [facility] [place] [address] [address] Performing Lab: [facility] [place] [facility] [address] [facility] [address] [facility] CBC AND DIFF (AUTO) HEMOGLOBIN [MASS/VOLUM E] IN BLOOD 14.1 g/dL 12.8 - 17 09/23 Specimen Type: BLOOD No comment entered. Ordering Provider: KENAN DODD Report Released Date/Time: Sep 09, 2023 03:28 PM Reporting Lab: [facility] [address] [facility] [address] Performing Lab: [facility] [facility] [address] [facility] [address] [facility] CBC AND DIFF (AUTO) HEMATOCRIT [VOLUME FRACTION] OF BLOOD BY AUTOMATED COUNT 43.5 39.2 - 50.4 09/23 Specimen Type: BLOOD No comment entered. Ordering Provider: KENAN DODD Report Released Date/Time: Sep 09, 2023 03:28 PM Reporting Lab: [facility] [facility] [address] [facility] [facility] [address] Performing Lab: [facility] [facility] [address] [facility] [address] [facility] CBC AND DIFF (AUTO) MCV [ENTITIC VOLUME] BY AUTOMATED COUNT 78.4 fL 82 - 99 09/23 L Specimen Type: BLOOD No comment entered. Ordering Provider: KENAN DODD Report Released Date/Time: Sep 09, 2023 03:28 PM Reporting Lab: [facility] [facility] [address] [facility] [address] Performing Lab: [facility] [facility] [address] [facility] [address] [facility] CBC AND DIFF (AUTO) MCHC [MASS/VOLUM E] BY AUTOMATED COUNT 32.4 g/dL 30.8 - 35.1 09/23 Specimen Type: BLOOD No comment entered. Ordering Provider: KENAN DODD Report Released Date/Time: Sep 09, 2023 03:28 PM Reporting Lab: [facility] [place] [facility] [address] [facility] [address] Performing Lab: [facility] [address] [facility] [address] [facility] CBC AND DIFF (AUTO) PLATELETS [#/VOLUME] IN BLOOD BY AUTOMATED COUNT 231 10*3/u L 140 - 360 09/23 Specimen Type: BLOOD No comment entered. Ordering Provider: KENAN DODD [employer] Report Released Date/Time: Sep 09, 2023 03:28 PM Reporting Lab: [facility] [place] [facility] [address] [facility] [address] Performing Lab: [facility] [place] [facility] [address] [facility] [address] [facility] [place] CBC AND DIFF (AUTO) ERYTHROCYTE DISTRIBUTIO N WIDTH [RATIO] BY AUTOMATED COUNT 15.2 12.0 - 16.0 09/23 Specimen Type: BLOOD No comment entered. Ordering Provider: KENAN DODD Report Released Date/Time: Sep 09, 2023 03:28 PM Reporting Lab: [facility] [place] [facility] [address] [facility] [facility] [address] Performing Lab: [facility] [place] [facility] [address] [facility] [address] [facility] CBC AND DIFF (AUTO) MONOCYTES [#/VOLUME] IN BLOOD BY AUTOMATED COUNT 0.49 10*3/u L 0.30 - 1.10 09/23 Specimen Type: BLOOD No comment entered. Ordering Provider: KENAN DODD Report Released Date/Time: Sep 09, 2023 03:28 PM Reporting Lab: [facility] [place] [facility] [address] [facility] [address] Performing Lab: [facility] [place] [facility] [address] [facility] [address] [facility] CBC AND DIFF (AUTO) MCH [ENTITIC MASS] BY AUTOMATED COUNT 25.4 pg 26.2 - 32.6 09/23 L Specimen Type: BLOOD No comment entered. Ordering Provider: KENAN DODD Report Released Date/Time: Sep 09, 2023 03:28 PM Reporting Lab: [facility] [address] [facility] [address] Performing Lab: [facility] [facility] [address] [facility] [address] [facility] CBC AND DIFF (AUTO) NEUTROPHILS /100 LEUKOCYTES IN BLOOD BY AUTOMATED COUNT 54.3 43.7 - 75.8 09/23 Specimen Type: BLOOD No comment entered. Ordering Provider: KENAN DODD Report Released Date/Time: Sep 09, 2023 03:28 PM Reporting Lab: [facility] [facility] [address] [facility] [address] Performing Lab: [facility] [facility] [address] [facility] [address] [facility] CBC AND DIFF (AUTO) LYMPHOCYTES /100 LEUKOCYTES IN BLOOD BY AUTOMATED COUNT 31.5 14.0 - 42.3 09/23 Specimen Type: BLOOD No comment entered. Ordering Provider: KENAN DODD Report Released Date/Time: Sep 09, 2023 03:28 PM Reporting Lab: [facility] [facility] [address] [facility] [address] Performing Lab: [facility] [facility] [address] [facility] [address] [facility] CBC AND DIFF (AUTO) MONOCYTES/1 00 LEUKOCYTES IN BLOOD BY AUTOMATED COUNT 8.5 5.1 - 13.7 09/23 Specimen Type: BLOOD No comment entered. Ordering Provider: KENAN DODD Report Released Date/Time: Sep 09, 2023 03:28 PM Reporting Lab: [facility] [address] [facility] [address] Performing Lab: [facility] [facility] [address] [facility] [address] [facility] CBC AND DIFF (AUTO) EOSINOPHILS /100 LEUKOCYTES IN BLOOD BY AUTOMATED COUNT 4.4 0.4 - 6.8 09/23 Specimen Type: BLOOD No comment entered. Ordering Provider: KENAN DODD Report Released Date/Time: Sep 09, 2023 03:28 PM Reporting Lab: [facility] [place] [facility] [address] [facility] [address] Performing Lab: [facility] [place] [address] [address] [facility] CBC AND DIFF (AUTO) BASOPHILS/1 00 LEUKOCYTES IN BLOOD BY AUTOMATED COUNT 1.0 0.1 - 2.0 09/23 Specimen Type: BLOOD No comment entered. Ordering Provider: KENAN DODD Report Released Date/Time: Sep 09, 2023 03:28 PM Reporting Lab: [facility] [place] [address] [address] Performing Lab: [facility] [place] [address] [address] [facility] [place] [facility] CBC AND DIFF (AUTO) NEUTROPHILS [#/VOLUME] IN BLOOD BY AUTOMATED COUNT 3.11 10*3/u L 2.20 - 7.60 09/23 Specimen Type: BLOOD No comment entered. Ordering Provider: KENAN DODD Report Released Date/Time: Sep 09, 2023 03:28 PM Reporting Lab: [facility] [place] [address] [address] Performing Lab: [facility] [place] [address] [address] [facility] [place] [facility] CBC AND DIFF (AUTO) LYMPHOCYTES [#/VOLUME] IN BLOOD BY AUTOMATED COUNT 1.81 10*3/u L 1.00 - 3.20 09/23 Specimen Type: BLOOD No comment entered. Ordering Provider: KENAN DODD Report Released Date/Time: Sep 09, 2023 03:28 PM Reporting Lab: [facility] [place] [address] [address] Performing Lab: [facility] [facility] [address] [facility] [address] [facility] CBC AND DIFF (AUTO) EOSINOPHILS [#/VOLUME] IN BLOOD BY AUTOMATED COUNT 0.25 10*3/u L 0.03 - 0.44 09/23 Specimen Type: BLOOD No comment entered. Ordering Provider: KENAN DODD Report Released Date/Time: Sep 09, 2023 03:28 PM Reporting Lab: [facility] [address] [facility] [address] Performing Lab: [facility] [address] [facility] [address] [facility] CBC AND DIFF (AUTO) BASOPHILS [#/VOLUME] IN BLOOD BY AUTOMATED COUNT 0.06 10*3/u L 0.01 - 0.13 09/23 Specimen Type: BLOOD No comment entered. Ordering Provider: KENAN DODD Report Released Date/Time: Sep 09, 2023 03:28 PM Reporting Lab: [facility] [place] [facility] [address] [facility] [address] Performing Lab: [facility] [place] [facility] [address] [facility] [address] [facility] CBC AND DIFF (AUTO) IMMATURE GRANULOCYTE S/100 LEUKOCYTES IN BLOOD BY AUTOMATED COUNT 0.3 0.0 - 0.7 09/23 Specimen Type: BLOOD No comment entered. Ordering Provider: KENAN DODD Report Released Date/Time: Sep 09, 2023 03:28 PM Reporting Lab: [facility] [address] [facility] [address] Performing Lab: [facility] [address] [facility] [address] [facility] CBC AND DIFF (AUTO) IMMATURE GRANULOCYTE S [#/VOLUME] IN BLOOD 0.02 10*3/u L 0.00 - 0.06 09/23 Specimen Type: BLOOD No comment entered. Ordering Provider: AHMED,MOHAM MED JAWED Report Released Date/Time: Sep 09, 2023 03:28 PM Reporting Lab: [facility] [address] [facility] [address] Performing Lab: [facility] [address] [facility] [address] [facility] Vital Signs Combined list of inpatient and outpatient Vital Signs from Department of Defense and Veterans Affairs, ranging from 12 months to all on record, depending upon the facility. Vital Sign Value Date Comments Source SYSTOLIC BLOOD PRESSURE 125 03/09/20 25 08:34:17 [facility] DIASTOLIC BLOOD PRESSURE 75 025 08:34:17 [facility] PULSE OXIMETRY 99 03/09/2025 08:34:17 [facility] WEIGHT 190 03/09/2025 08:34:17 [facility] BMI 24 kg/m2 03/09/2025 08:34:17 [facility] PAIN 0 03/09/2025 08:34:17 [facility] TEMPERATURE 97.5 03/09/2025 08:34:17 [facility] PULSE 73 03/09/2025 08:34:17 [facility] RESPIRATION 16 03/09/2025 08:34:17 [facility] SYSTOLIC BLOOD PRESSURE 127 09/08/20 24 07:59:52 [facility] DIASTOLIC BLOOD PRESSURE 76 024 07:59:52 [facility] PULSE OXIMETRY 99 09/08/2024 07:59:52 [facility] 09/08/2024 07:59:52 [facility] Encounters Combined list of: 1) Encounters from Department of Veterans Affairs facilities going backup to the last 18 months, not all [place] inpatient encounters are included; 2) Encounters from the Department of Defense facilities going backup to 280 months. Location Location Details Encounter Type Encounter Number Reason For Visit Attending Provider ADM Date DC Date Status Disposition Source [facility] [id number] Diagnos is: ICD-10- CM F43.10 Post-tr aumatic stress disorde r, unspeci fied MARK,CHR ISTIE 09/16 [facility] Outpatient Encounter [id number] 09/18 [facility] [id number] Diagnos is: ICD-10- CM F43.10 Post-tr aumatic stress disorde r, unspeci fied MARK,CHR ISTIE 09/23 [facility] OFF[facility] O/P EST MOD 30-39 MIN [id number] Diagnos is: ICD-10- CM F43.12 Post-tr aumatic stress disorde r, chronic AHMED,MOHA MMED JAWED 09/26 [facility] [id number] Diagnos is: ICD-10- CM F43.10 Post-tr aumatic stress disorde r, unspeci fied MARK,CHR ISTIE 09/30 [facility] [id number] Diagnos is: ICD-10- CM F43.10 Post-tr aumatic stress disorde r, unspeci fied MARK,CHR ISTIE 10/07 [facility] Out[facility] En[facility] [id number] 10/11 [facility] [id number] Diagnos is: ICD-10- CM F43.10 Post-tr aumatic stress disorde r, unspeci fied MARK,CHR ISTIE 10/14 [facility] OFF/OP EST FEBRUARY X REQ PHY/QHP [id number] Diagnos is: ICD-10- CM Z01.30 Encount er for exam of blood pressur e w/o abnorma l finding s MAGNUS,M NORA H 10/23 [facility] PSYTX W PT W E/M 30 MIN [id number]. [id number] Diagnos is: ICD-10- CM F43.12 Post-tr aumatic stress disorde r, chronic FELICIANO,P CARLA B 10/24 [facility] GROUP PSYCHOTHER APY [id number] Diagnos is: ICD-10- CM F43.10 Post-tr aumatic stress disorde r, unspeci fied MARK,CHR ISTIE 11/04 [facility] GROUP PSYCHOTHER APY [id number] Diagnos is: ICD-10- CM F43.10 Post-tr aumatic stress disorde r, unspeci fied MARK,CHR ISTIE 11/18 [facility] GROUP PSYCHOTHER APY [id number] Diagnos is: ICD-10- CM F43.10 Post-tr aumatic stress disorde r, unspeci fied MARK,CHR ISTIE 12/02 [facility] GROUP PSYCHOTHER APY [id number] Diagnos is: ICD-10- CM F43.10 Post-tr aumatic stress disorde r, unspeci fied MARK,CHR ISTIE 12/09 [facility] HEARING AID REPAIR/MOD IFYING [id number] Diagnos is: ICD-10- CM Z46.1 Encount er for fitting and adjustm ent of hearing aid SENIOR,GRISEL ODELL L 12/17 [facility] GROUP PSYCHOTHER APY [id number] Diagnos is: ICD-10- CM F43.10 Post-tr aumatic stress disorde r, unspeci fied MARK,CHR ISTIE 12/23 [facility] GROUP PSYCHOTHER APY [id number] Diagnos is: ICD-10- CM F43.10 Post-tr aumatic stress disorde r, unspeci fied MARK,CHR ISTIE 12/29 [facility] HEARING AID REPAIR/MOD IFYING [id number] Diagnos is: ICD-10- CM Z46.1 Encount er for fitting and adjustm ent of hearing aid Kinza PALMA 01/02 [facility] GROUP PSYCHOTHER APY [id number] Diagnos is: ICD-10- CM F43.10 Post-tr aumatic stress disorde r, unspeci fied MRAK,CHR ISTIE 01/05 [facility] Outpatient Encounter [id number]. [id number] 01/08 [facility] Out[facility]counter [id number] 01/08 [facility] CASE [facility] LIT [id number] Diagnos is: ICD-10- CM K03.6 Deposit s [accret ions] on teeth Svetlana AGOSTO 01/09 [facility] DENTAL BITEWING FOUR IMAGES 45502-3. [id number] Diagnos is: ICD-10- CM K08.9 Disorde r of teeth and support ing structu res, unspeci fied MIKAELA TORRES 01/09 [facility] GROUP PSYCHOTHER APY [id number] Diagnos is: ICD-10- CM F43.10 Post-tr aumatic stress disorde r, unspeci fied MARK,CHR ISTIE 01/12 [facility] Out[facility] Encounter [id number] 01/17 [facility] GROUP PSYCHOTHER APY [id number] Diagnos is: ICD-10- CM F43.10 Post-tr aumatic stress disorde r, unspeci fied MARK,CHR ISTIE 01/19 [facility] GROUP PSYCHOTHER APY [id number] Diagnos is: ICD-10- CM F43.10 Post-tr aumatic stress disorde r, unspeci fied MARK,CHR ISTIE 01/26 [facility] GROUP PSYCHOTHER APY [id number] Diagnos is: ICD-10- CM F43.10 Post-tr aumatic stress disorde r, unspeci fied MARK,CHR ISTIE 02/02 [facility] GROUP PSYCHOTHER APY [id number] Diagnos is: ICD-10- CM F43.10 Post-tr aumatic stress disorde r, unspeci fied MARK,CHR ISTIE 02/09 [facility] GROUP PSYCHOTHER APY [id number] Diagnos is: ICD-10- CM F43.10 Post-tr aumatic stress disorde r, unspeci fied MARK,CHR ISTIE 02/16 [facility] GROUP PSYCHOTHER APY [id number] Diagnos is: ICD-10- CM F43.10 Post-tr aumatic stress disorde r, unspeci fied MARK,CHR ISTIE 02/23 [facility] Outpatient Encounter [id number] 03/09 [facility] OFFICE O/P EST MOD 30 MIN [id number] Diagnos is: ICD-10- CM 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 , unspeci fied site FURCOLO,TI NA 03/09 [facility] GROUP PSYCHOTHER APY [id number] Diagnos is: ICD-10- CM F43.10 Post-tr aumatic stress disorde r, unspeci fied MARK,CHR ISTIE 03/09 [facility] GROUP PSYCHOTHER APY [id number] Diagnos is: ICD-10- CM F43.10 Post-tr aumatic stress disorde r, unspeci fied MARK,CHR ISTIE 03/16 [facility] PSYTX W PT W E/M 30 MIN [id number] Diagnos is: ICD-10- CM F10.21 Alcohol depende nce, in remissi on FELICIANO,P CARLA B 03/26 [facility] GROUP PSYCHOTHER APY [id number] Diagnos is: ICD-10- CM F43.10 Post-tr aumatic stress disorde r, unspeci fied MARK,CHR ISTIE 03/30 [facility] GROUP PSYCHOTHER APY [id number] Diagnos is: ICD-10- CM F43.10 Post-tr aumatic stress disorde r, unspeci fied MARK,CHR ISTIE 04/06 [facility] GROUP PSYCHOTHER APY [id number] Diagnos is: ICD-10- CM F43.10 Post-tr aumatic stress disorde r, unspeci fied MARK,CHR ISTIE 05/04 [facility] GROUP PSYCHOTHER APY [id number] Diagnos is: ICD-10- CM F43.10 Post-tr aumatic stress disorde r, unspeci fied MARK,CHR ISTIE 05/11 [facility] GROUP PSYCHOTHER APY [id number] Diagnos is: ICD-10- CM F43.10 Post-tr aumatic stress disorde r, unspeci fied MARK,CHR ISTIE 05/18 [facility] Outpatient [facility]counter [id number] 05/25 [facility] GROUP PSYCHOTHER APY [id number] Diagnos is: ICD-10- CM F43.10 Post-tr aumatic stress disorde r, unspeci fied MARK,CHR ISTIE 06/01 [facility] GROUP PSYCHOTHER APY [id number] Diagnos is: ICD-10- CM F43.10 Post-tr aumatic stress disorde r, unspeci fied MARK,CHR ISTIE 06/08 [facility] GROUP PSYCHOTHER APY [id number] Diagnos is: ICD-10- CM F43.10 Post-tr aumatic stress disorde r, unspeci fied MARK,[facility] ISTIE 06/15 [facility] GROUP PSYCHOTHER APY [id number] [id number] Diagnos is: ICD-10- CM F43.10 Post-tr aumatic stress disorde r, unspeci fied MARK,[facility] ISTIE 06/22 [facility] GROUP PSYCHOTHER APY [id number] Diagnos is: ICD-10- CM F43.10 Post-tr aumatic stress disorde r, unspeci fied MARK,[facility] 07/13 [facility] HEARING AID REPAIR/MOD IFYING [id number] Diagnos is: ICD-10- CM Z46.1 Encount er for fitting and adjustm ent of hearing aid SHAYNE GARRISON 07/13 [facility] Outpatient Encounter 65050-0.63 1.07/15 [facility] CASE MGMT-ORAL HEALTH LIT [id number] Diagnos is: ICD-10- CM K03.6 Deposit s [accret ions] on teeth BELYSHEV,N ADEZHDA 07/16 [facility] GROUP PSYCHOTHER APY [id number] Diagnos is: ICD-10- CM F43.10 Post-tr aumatic stress disorde r, unspeci fied MARK,[facility] 07/20 [facility] GROUP PSYCHOTHER APY [id number] Diagnos is: ICD-10- CM F43.10 Post-tr aumatic stress disorde r, unspeci fied MARK,CHR ISTIE 07/27 [facility] GROUP PSYCHOTHER APY [id number] Diagnos is: ICD-10- CM F43.10 Post-tr aumatic stress disorde r, unspeci fied MARK,CHR ISTIE 08/03 [facility] Outpatient Encounter [id number] 08/06 [facility] GROUP PSYCHOTHER APY [id number] Diagnos is: ICD-10- CM F43.10 Post-tr aumatic stress disorde r, unspeci fied MARK,CHR ISTIE 08/24 [facility] Outpatient Encounter [id number] 08/28 [facility] GROUP PSYCHOTHER APY [id number] Diagnos is: ICD-10- CM F43.10 Post-tr aumatic stress disorde r, unspeci fied MARK,CHR ISTIE 08/31 [facility] OFFICE O/P EST MOD 30 MIN [id number] Diagnos is: ICD-10- CM R97.20 Elevate d prostat e specifi c antigen [PSA] FURCOLO,TI NA 09/08 [facility] PSYTX W PT W E/M 30 MIN [id number] Diagnos is: ICD-10- CM F43.12 Post-tr aumatic stress disorde r, chronic FELICIANO,P CARLA B 09/08 [facility] GROUP PSYCHOTHER APY [id number] 1. Diagnos is: ICD-10- CM F43.10 Post-tr aumatic stress disorde r, unspeci fied MARK,CHR ISTIE 09/14 [facility] GROUP PSYCHOTHER APY [id number] 1. Diagnos is: ICD-10- CM F43.10 Post-tr aumatic stress disorde r, unspeci fied MARK,[facility] ISTIE 09/21 [facility] GROUP PSYCHOTHER APY [id number] 1. Diagnos is: ICD-10- CM F43.10 Post-tr aumatic stress disorde r, unspeci fied MARK,CHR ISTIE 10/05 [facility] GROUP PSYCHOTHER APY [id number] Diagnos is: ICD-10- CM F43.10 Post-tr aumatic stress disorde r, unspeci fied MARK,CHR ISTIE 10/12 [facility] QNHP OL DIG ASSMT&MGMT 21+ [id number] Diagnos is: ICD-10- CM F43.12 Post-tr aumatic stress disorde r, chronic LABELLA,KE RI DONAL 10/15 [facility] GROUP PSYCHOTHER APY [id number] Diagnos is: ICD-10- CM F43.10 Post-tr aumatic stress disorde r, unspeci fied MARK,CHR ISTIE 10/19 [facility] HC PRO PHONE CALL 5-10 MIN [id number] [id number] Diagnos is: ICD-10- CM F43.12 Post-tr aumatic stress disorde r, chronic LABELLA,KE [place] DONAL 10/27 [facility] GROUP PSYCHOTHER APY [id number] Diagnos is: ICD-10- CM F43.10 Post-tr aumatic stress disorde r, unspeci fied MARK,CHR ISTIE 11/02 [facility] GROUP PSYCHOTHER APY [id number] Diagnos is: ICD-10- CM F43.10 Post-tr aumatic stress disorde r, unspeci fied MARK,CHR ISTIE 11/23 [facility] Outpatient Encounter [id number] 11/26 [facility] GROUP PSYCHOTHER APY [id number] Diagnos is: ICD-10- CM F43.10 Post-tr aumatic stress disorde r, unspeci fied MARK,CHR ISTIE 11/30 [facility] GROUP PSYCHOTHER APY [id number] Diagnos is: ICD-10- CM F43.10 Post-tr aumatic stress disorde r, unspeci fied MARK,CHR ISTIE 12/07 [facility] Outpatient Encounter [id number]/15 [facility] Outpatient Encounter [id number] 12/15 [facility] GROUP PSYCHOTHER APY [id number] Diagnos is: ICD-10- CM F43.10 Post-tr aumatic stress disorde r, unspeci fied MARK,CHR ISTIE 12/21 [facility] GROUP PSYCHOTHER APY [id number] Diagnos is: ICD-10- CM F43.10 Post-tr aumatic stress disorde r, unspeci fied MARK,CHR ISTIE 12/28 [facility] GROUP PSYCHOTHER APY [id number] Diagnos is: ICD-10- CM F43.10 Post-tr aumatic stress disorde r, unspeci fied MARK,CHR ISTIE 01/04 [facility] Outpatient Encounter [id number] 01/11 [facility] GROUP PSYCHOTHER APY [id number] Diagnos is: ICD-10- CM F43.10 Post-tr aumatic stress disorde r, unspeci fied MARK,CHR ISTIE 01/11 [facility] CASE MGMT-ORAL HEALTH LIT [id number] Diagnos is: ICD-10- CM K03.6 Deposit s [accret ions] on teeth SURENDRA,N ADEZHDA 01/12 [facility] GROUP PSYCHOTHER APY [id number] Diagnos is: ICD-10- CM F43.10 Post-tr aumatic stress disorde r, unspeci fied MARK,CHR ISTIE 01/18 [facility] GROUP PSYCHOTHER APY [id number] Diagnos is: ICD-10- CM F43.10 Post-tr aumatic stress disorde r, unspeci fied MARK,CHR ISTIE 02/01 [facility] GROUP PSYCHOTHER APY [id number] Diagnos is: ICD-10- CM F43.10 Post-tr aumatic stress disorde r, unspeci fied MARK,CHR ISTIE 02/08 [facility] GROUP PSYCHOTHER APY [id number] Diagnos is: ICD-10- CM F43.10 Post-tr aumatic stress disorde r, unspeci fied MARK,CHR ISTIE 02/15 [facility] GROUP PSYCHOTHER APY [id number] Diagnos is: ICD-10- CM F43.10 Post-tr aumatic stress disorde r, unspeci fied MARK,CHR ISTIE 02/22 [facility] Outpatient Encounter [id number] 03/02 [facility] [place] GROUP PSYCHOTHER APY [id number] [id number] Diagnos is: ICD-10- CM F43.10 Post-tr aumatic stress disorde r, unspeci fied MARK,CHR ISTIE 03/08 [facility] [place] [facility] [place] [facility] OFFICE O/P EST MOD 30 MIN [id number] Diagnos is: ICD-10- CM I77.810 Thoraci c aortic ectasia FURCOLO,TI NA 03/09 [facility] Social History Combined list of available smoking, tobacco, and other social history from Department of Defense and Veterans Affairs facilities. Social History Type Response Date Comment Source [facility] OTHER TYPE 03/09/2025 [facility] [place] [facility] History of tobacco use [place]-TOBACCO USE FORMER CIGARETTES 03/09/2025 [facility] [place] [place] [facility] of [facility] 03/09/2024 [facility] [place] [facility] History of tobacco use [place]-TOBACCO QUIT 15 YRS OR MORE 03/18/2023 [facility] [place] [facility] History of tobacco use [place]-TOBACCO FORMER USER 01/11/2022 [facility] [place] [facility] History of tobacco use [place]-TOBACCO FORMER USER 12/26/2020 [facility] [place] [facility] History of tobacco use [place]-TOBACCO FORMER USER 12/08/2019 [facility] [place] [facility] History of tobacco use [place]-TOBACCO FORMER USER 10/14/2018 [facility] [place] [facility] History of tobacco use QUIT TOBACCO USE > 7 YEARS AGO 12/12/2017 quit > 30 yrs ( 2-3 pks a day) [facility] [place] [facility] Plan of Care List of future care activities from Department of Veterans Affairs facilities. Additional future care activities may be listed in the Assessment and Plan section. Date/Time Care Activity Care Activity Detail Facili ty 04/05/2025 AMBULATORY - PSYCHIATRY AMBULATORY - PSYC HIATRY [facility] Advance Directives List of completed, amended, or rescinded Advance Directives on record at [facility] facilities. An actual copy of the Directive is not included. Date Advance Directive Provider Source 02/09/2019 ADVANCE DIRECTIVE VAN MORENO [facility] 02/08/2019 ADVANCE DIRECTIVE SAMM [facility]
--- OUTSIDE RECORDS SUMMARY | 2025-03-15 14:20 | XMS_ITS ---
Author Organization [facility] Address [address] [place] [address] Care Team Providers Care Hr Advisor Name Role Phone Edwin Bradley Primary Care Provider Unavailab Osman Jeong Unavailable [phone] Allergies Allergen (clinical drug ingredient) Drug/Non Drug [...] Ordered Date Performed Result Body Sit e 00050-UREMTCY NAIL, 6 OR MORE 07/28/2024 N/A 52943-MGQS SKIN LESIONS, OVER 4 07/28/2024 N/A Encounters Encounter Location Date Provider Diagnosis [facility] [place] [address] [place] [address] 07/28/2024 Osman Blanc Atherosclerosis of penobscot artery of both lower extremities, with unspecified presence of clinical manifestation I70.203 ; Tinea unguium B35.1 ; Pain in right toe(s) M79.674 and Pain in left toe(s) M79.675 Assessments Encounter Date Diagnosis (ICD Code) Assessment Notes Treatment Notes Treatment Clinical Notes Section Notes 07/28/2024 Atherosclerosis of penobscot artery of both lower extremities, with unspecified presence of clinical manifestation (ICD-10 - I70.203) 07/28/2024 Tinea unguium (ICD-10 - B35.1) 07/28/2024 Pain in right toe(s) (ICD-10 - M79.674) 07/28/2024 Pain in left toe(s) (ICD-10 - M79.675) Plan Of Treatment Pending Test Test Name Order Date 10566-JBQLSEG NAIL, 6 OR MORE 07/28/2024 63179-OQQM SKIN LESIONS, OVER 4 07/28/20 24 Next Appt Details Follow Up: prn, Reason: Provider Name:Osman Blanc , 05/04/2025 10:00:00 AM, [address] [place] [address], [place], [address], Procedure Notes * Category Sub-Category Detail Notes Debride Nail 6-10 Nail debridement Performance o f this nail treatment by a nonprofessional would put this patients foot and overall health at risk. Therefore, nail debridement was performed extensively to reduce/remove overall nail length, girth, thickness, subungual debris, and necrotic tissue, by manual and/or electrical means through the use of a nail nipper and/or dremel-type chisel grinder, to a more viable healthy nail plate or bed tissue 6-10. Silver nitrate used for any petechial bleeding as necessary. Definitive antifungal treatment options have been reviewed and discussed with the patient. The patient chooses, no pharmaceutical tx - 14890 Keratoma Treatment Parring or Cutting o f Benign Hyperkeratotic Lesion(s) (-57) More than 4 Lesions - The Benign hyperkeratotic lesions, as described above were pared, and/or cut utilizing a sterile 15 blade, tissue nippers, and/or dremel - 72009 , Q8 Progress Notes * Lynette SANCHEZ JrDOB:[birth year] (74 yo M)Acc No.[id number]:07/28/2024 Progress Note Patient:Lynette Guzman Provider:?Osman Blanc DPM :1950???Age:74 Y???Sex:Male Praveen e:07/28/2024 Address:[address] [facility] [address] [place], [id number] Pcp:Kleber Billy MD Subjective: * Chief Complaints: [...] hip surgery 07/2015 * Hospitalization/Major Diagno stic Procedure:?[facility]- Unknown Headache Migraine for [...] Assessment: 1.?Tinea unguium - B35.1?2.? Atherosclerosis of penobscot artery of both lower extremities, with unspecified presence of clinical manifestation - I70.203 (Primary)?3.?Pain in right toe(s) - M79.674?4.?Pain in left toe(s) - M79.675? Plan: * Treatment: 2.?Tinea unguium?Procedure: 68717-[id number] NAIL, 6 OR MORE * Procedures:?Debride Nail 6-10:?Nail debridement?Performance of this nail treatment by a nonprofessional would put this patients foot and overall health at risk. Therefore, nail debridement was performed extensively to reduce/remove overall nail length, girth, thickness, subungual debris, and necrotic tissue, by manual and/or electrical means through the use of a nail nipper and/or dremel-type chisel grinder, to a more viable healthy nail plate or bed tissue 6-10. Silver nitrate used for any petechial bleeding as necessary. Definitive antifungal treatment options have been reviewed and discussed with the patient. The patient chooses, no pharmaceutical tx - 94068.?Keratoma Treatment:?Parring or Cutting of Benign Hyperkeratotic Lesion(s)?(-57) More than 4 Lesions - The Benign hyperkeratotic lesions, as described above were pared, and/or cut utilizing a sterile 15 blade, tissue nippers, and/or dremel - 12301 , Q8.? * Procedure Codes:?51207 DEBRI DE NAIL, 6 OR MORE, Modifiers: XS 55672 TRIM SKIN LESIONS, OVER 4, Modifiers: XS , Q8 * Follow Up:?prn * Images: * Sign off status: Completed true * Provider:?Osman Blanc DPM Date:?2023 Generated for Ally gomez/Leann/Maryjane on:?03/15/2025 02:20 PM EDT History and Physical Notes * [...]
--- OUTSIDE RECORDS SUMMARY | 2025-03-15 14:20 | XMS_ITS ---
Author Name [facility] [place] Address [address] [place] [address] Care Team Providers Care Engineering Model Maker Name Role Phone YANETH JOE Primary Care [...] Policy 's Name Patient's Relationship to Policy [facility] (WNR) MEDICARE ADVANTAGE [facility] (R) Oct 28, 2019 [id number] TUTU,JE JONAS PATIENT Selected Encounter This [...] Post-traumatic stress disorder, unspecified MARK[facility]QUELIN [facility] Plan of Treatment: Future Appointments (+ 6 months) and Future Tests (+/- 45 days) The Plan of Treatment section includes future care activities for the patient from all VA treatmentfaatrium health providenceities. This section includes future appointments and future [...] AMBULATORY - PS[facility]IATRY [facility] [place] [facility] Oct 05, 2024 02:00 PM AMBULATORY - PSYCHIATRY [facility] [place] [facility] Oct 12, 2024 02:00 PM AMBULATORY - PSYCHIATRY [facility] [place] [facility] Oct 19, 2024 02:00 PM AMBULATORY - PSYCHIATRY [facility] [place] [facility] Oct 27, 2024 11:45 AM AMBULATORY - PSYCHIATRY [facility] [place] [facility] Nov 02, 2024 02:00 PM AMBULATORY - PSYCHIATRY [facility] [place] [facility] Nov 23, 2024 02:00 PM AMBULATORY - PSYCHIATRY [facility] [place] [facility] Nov 26, 2024 11:45 AM AMBULATORY - MEDICINE [facility] [place] [facility] Nov 30, 2024 02:00 PM AMBULATORY - PSYCHIATRY [facility] [place] [facility] Dec 07, 2024 02:00 PM AMBULATORY - PSYCHIATRY [facility] [place] [facility] Dec 21, 2024 02:00 PM AMBULATORY - PSYCHIATRY [facility] [place] [facility] Dec 28, 2024 02:00 PM AMBULATORY - PSYCHIATRY [facility] [place] [facility] Dec 29, 2024 08:30 AM AMBULATORY - NONE [facility] [place] [facility] Jan 04, 2025 02:00 PM AMBULATORY - PSYCHIATRY [facility] [place] [facility] Jan 11, 2025 02:00 PM AMBULATORY - PSYCHIATRY [facility] [place] [facility] Jan 12, 2025 07:30 AM AMBULATORY - NONE [facility] [place] [facility] Jan 18, 2025 02:00 PM AMBULATORY - PSYCHIATRY [facility] [place] [facility] Feb 01, 2025 02:00 PM AMBULATORY - PSYCHIATRY [facility] Feb 08, 2025 02:00 PM AMBULATORY - PSYCHIATRY [facility] Feb 15, 2025 02:00 PM AMBULATORY - PSYCHIATRY [facility] Lab Results: +/- 30 days of the encounter This section includes the Chemistry and Hematology Lab Results on record with [place] for the patient. Radiology Reports and Pathology Reports are provided separately, in subsequent sections. Lab Results This section contains the Chemistry/Hematology Results that were resulted 30 days before or 30 daysafter the date of the Encounter. Date/Time Source Result Type Result - Unit Interpretation Reference Range Specimen Type Comment Aug 31, 2024 01:30 PM [facility] PSA SERUM Specimen Type: SERUM No comment entered. Ordering Provider: YANETH JOE Report Released Date/Time: March 09, 2024 09:50 AM Reporting Lab: [address] [id number] Performing Lab: [address] [id number] PSA 8.81 ng/mL H 0.00-4.00 Aug 31, 2024 01:30 PM [facility] BASIC METABOLIC PANEL (non-fasting) SERUM Spe cimen Type: SERUM No comment entered. Ordering Provider: YANETH JOE Report Released Date/Time: March 09, 2024 09:50 AM Reporting Lab: [address] [address] Performing Lab: [address] [id number] UREA NITROGEN 16 mg/dL 7-25 GLUCOSE 106 [...] 09, 2024 09:00 AM VA-TOBACCO FORMER USER [place] [facility] [place] [facility] Tobacco Use History This section includes a history of the smoking, or tobacco-related health factors, that were collected on or before the date of the Encounter. The data comes from the [place] facility where the Encounter took place. Date/Time Smoking Status/Tobac co Use Comment Facility March 09, 2024 09:00 AM VA-TOBACCO QUIT 15 YRS OR MORE [facility] [place] [facility] March 18, 2023 02:30 PM VA-TOBACCO FORMER USER [facility] [place] [facility] March 18, 2023 02:30 PM VA-TOBACCO QUIT 15 YRS OR MORE [facility] [place] [facility] Jan 11, 2022 08:30 AM VA-TOBACCO FORMER USER [facility] [place] [facility] Jan 11, 2022 08:30 AM VA-TOBACCO QUIT 15 YRS OR MORE [facility] [place] [facility] Dec 26, 2020 09:00 AM VA-TOBACCO FORMER USER [facility] [place] [facility] Dec 26, 2020 09:00 AM VA-TOBACCO QUIT 15 YRS OR MORE [facility] [place] [facility] Dec 08, 2019 09:16 AM VA-TOBACCO FORMER USER [facility] [place] [facility] Dec 08, 2019 09:16 AM VA-TOBACCO QUIT 15 YRS OR MORE [facility] [place] [facility] Oct 14, 2018 02:56 PM VA-TOBACCO FORMER USER [facility] [place] [facility] Oct 14, 2018 02:56 PM VA-TOBACCO QUIT 15 YRS OR MORE [facility] [place] [facility] Dec 12, 2017 09:20 AM QUIT TOBACCO USE > 7 YEARS AGO quit > 30 yrs ( 2-3 pks a day) [facility] [place] [facility] Advance Directives: All historical and current Section [...] [facility] Feb 08, 2019 ADVANCE DIRECTIVE BELEMSAMM [facility] Encounter Notes: All associated encounter notes [...] and feedback. Next group will be 09/21/2024 Lorida reflected on the group member that . /gio/ ANSHU CHAVEZ CLINICAL TOBACCO CHECKOUT CLERK Signed: 09/14/2024 16:17 MANDY FLORES [facility]
--- OUTSIDE RECORDS SUMMARY | 2025-03-15 14:20 | XMS_ITS | Encounter Summary ---
Author Name [facility] [place] Address [address] [place] [address] Care Team Providers Care Storeroom Clerk Name Role Phone YANETH JOE Primary Care [...] Name Patient's Relationship to Policy [facility] ([facility]) MEDICARE ADVANTAGE [facility] (R) Oct 28, 2019 [id number] TUTU,JE JONAS PATIENT Selected Encounter This [...] PRIMARY Post-traumatic stress disorder, unspecified MARK[facility]IN [facility] Plan of Treatment: Future Appointments (+ 6 months) and Future Tests (+/- 45 days) The Plan of Treatment section includes future care activities for the patient from all [facility] treatment[facility] healthcare systemities. This section includes future appointments and future [...] [facility] [place] [facility] Jul 13, 2024 02:00 PM AMBULATORY - PSYCHIATRY [facility] [place] [facility] Jul 13, 2024 02:30 PM AMBULATORY - REHAB MEDICIN E [facility] [place] [facility] Jul 16, 2024 07:15 AM AMBULATORY - NONE [facility] [place] [facility] Jul 20, 2024 02:00 PM AMBULATORY - PSYCHIATRY [facility] [place] [facility] Jul 27, 2024 02:00 PM AMBULATORY [...] [facility] [place] [place] [facility] Sep 08, 2024 09:00 AM AMBULATORY - PSYCHIATRY [facility] [place] [facility] Sep 14, 2024 02:00 PM AMBULATORY - PSYCHIATRY [facility] [place] [facility] Sep 21, 2024 02:00 PM AMBULATORY - PSYCHIATRY [facility] [place] [facility] Oct 05, 2024 02:00 PM AMBULATORY - PSYCHIATRY [facility] [place] [facility] Oct 12, 2024 02:00 PM AMBULATORY - PS[place]CHIATRY [place] [facility] [place] [facility] Oct 19, 2024 02:00 PM AMBULATORY - PS[place]CHIATRY [place] [facility] [facility] Oct 27, 2024 11:45 AM AMBULATORY - PS[place]CHIATRY [place] [facility] [place] [facility] Social History: Smoking Status (Most current) [...] VA-TOBACCO FORMER USER [place] [facility] [place] [facility] Tobacco Use History This section includes a history of the smoking, or tobacco-related health factors, that were collected on or before the date of the Encounter. The data comes from the [place] facility where the Encounter took place. Date/Time Smoking Status/Tobac co Use Comment Facility March 09, 2024 09:00 AM VA-TOBACCO QUIT 15 YRS OR MORE [facility] [place] [facility] March 18, 2023 02:30 PM VA-TOBACCO FORMER USER [facility] [place] [facility] March 18, 2023 02:30 PM VA-TOBACCO QUIT 15 YRS OR MORE [facility] [place] [facility] Jan 11, 2022 08:30 AM VA-TOBACCO FORMER USER [facility] [place] [facility] Jan 11, 2022 08:30 AM VA-TOBACCO QUIT 15 YRS OR MORE [facility] [place] [facility] Dec 26, 2020 09:00 AM VA-TOBACCO FORMER USER [facility] [place] [facility] Dec 26, 2020 09:00 AM VA-TOBACCO QUIT 15 YRS OR MORE [facility] [place] [facility] Dec 08, 2019 09:16 AM VA-TOBACCO FORMER USER [facility] [place] [facility] Dec 08, 2019 09:16 AM VA-TOBACCO QUIT 15 YRS OR MORE [facility] [place] [facility] Oct 14, 2018 02:56 PM VA-TOBACCO FORMER USER [facility] [place] [facility] Oct 14, 2018 02:56 PM VA-TOBACCO QUIT 15 YRS OR MORE [facility] Dec 12, 2017 09:20 AM QUIT TOBACCO USE > 7 YEARS AGO quit > 30 yrs ( 2-3 pks a day) [facility] Advance Directives: All historical and [...] Feb 09, 2019 ADVANCE DIRECTIVE VAN MORENO [facility] Feb 08, 2019 ADVANCE DIRECTIVE SAMM BRINK V [facility] Encounter Notes: All associated encounter notes [...] was attentive and participatory. 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
--- OUTSIDE RECORDS SUMMARY | 2025-03-15 14:20 | XMS_ITS ---
Author Name [facility] [place] Address [address] [place] [id number] Care Team Providers Care Prepper Name Role Phone YANETH JOE Primary Care [...] Policy 's Name Patient's Relationship to Policy [facility] MEDICARE ADVANTAGE [facility] Oct 28, 2019 [id number] 09 TUTU,JE JONAS PATIENT Selected Encounter This [...] unspecified MARK,JAQUELIN E [facility] Plan of Treatment: Future Appointments (+ 6 months) and Future Tests (+/- 45 days) The Plan of Treatment section includes future care activities for the patient from all [facility] treatment[facility] hospitalities. This section includes future appointments and [...] AMBULATORY - PSYCHIATRY [facility] [place] [facility] Aug 24, 2024 02:00 PM AMBULATORY - PSYCHIATRY [facility] [place] [facility] Aug 31, 2024 02:00 PM AMBULATORY - PSYCHIATRY [facility] [place] [facility] Sep 08, 2024 08:00 AM AMBULATORY - MEDICINE [facility] [place] [facility] Sep 08, 2024 09:00 AM AMBULATORY - PSYCHIATRY [facility] [place] [facility] Sep 14, 2024 02:00 PM AMBULATORY - PSYCHIATRY [facility] [place] [facility] Sep 21, 2024 02:00 PM AMBULATORY - PSYCHIATRY [facility] [place] [facility] Oct 05, 2024 02:00 PM AMBULATORY - PSYCHIATRY [facility] [place] [facility] Oct 12, 2024 02:00 PM AMBULATORY - PSYCHIATRY [facility] [place] [facility] Oct 19, 2024 02:00 PM AMBULATORY - PSYCHIATRY [facility] [place] [facility] Oct 27, 2024 11:45 AM AMBULATORY - PSYCHIATRY [facility] [place] [facility] Nov 02, 2024 02:00 PM AMBULATORY - PSYCHIATRY [facility] [place] [facility] Nov 23, 2024 02:00 PM AMBULATORY - PSYCHIATRY [facility] [place] [facility] Nov 26, 2024 11:45 AM AMBULATORY - MEDICINE [facility] [place] [facility] Nov 30, 2024 02:00 PM AMBULATORY - PSYCHIATRY [facility] [place] [facility] Dec 07, 2024 02:00 PM AMBULATORY - PSYCHIATRY [facility] [place] [facility] Dec 21, 2024 02:00 PM AMBULATORY - PSYCHIATRY [facility] [place] [facility] Dec 28, 2024 02:00 PM AMBULATORY - PSYCHIATRY [facility] [place] [facility] Dec 29, 2024 08:30 AM AMBULATORY - NONE [facility] [place] [facility] Jan 04, 2025 02:00 PM AMBULATORY - PSYCHIATRY [place] [facility] [facility] Social History: Smoking Status (Most current) [...] YRS OR MORE [place] [facility] [place] [facility] Tobacco Use History This section includes a history of the smoking, or tobacco-related health factors, that were collected on or before the date of the Encounter. The data comes from the [place] facility where the Encounter took place. Date/Time Smoking Status/Tobac co Use Comment Facility March 09, 2024 09:00 AM VA-TOBACCO QUIT 15 YRS OR MORE [facility] [place] [facility] March 18, 2023 02:30 PM VA-TOBACCO FORMER USER [facility] [place] [facility] March 18, 2023 02:30 PM VA-TOBACCO QUIT 15 YRS OR MORE [facility] [place] [facility] Jan 11, 2022 08:30 AM VA-TOBACCO FORMER USER [facility] [place] [facility] Jan 11, 2022 08:30 AM VA-TOBACCO QUIT 15 YRS OR MORE [facility] [place] [facility] Dec 26, 2020 09:00 AM VA-TOBACCO FORMER USER [facility] [place] [facility] Dec 26, 2020 09:00 AM VA-TOBACCO QUIT 15 YRS OR MORE [facility] [place] [facility] Dec 08, 2019 09:16 AM VA-TOBACCO FORMER USER [facility] [place] [facility] Dec 08, 2019 09:16 AM VA-TOBACCO QUIT 15 YRS OR MORE [facility] [place] [facility] Oct 14, 2018 02:56 PM VA-TOBACCO FORMER USER [facility] [place] [facility] Oct 14, 2018 02:56 PM [place]-TOBACCO QUIT 15 YRS OR MORE [facility] Dec 12, 2017 09:20 AM QUIT TOBACCO [...] Provider Source Feb 09, 2019 ADVANCE DIRECTIVE TIFFANIEARAUJO A [facility] Feb 08, 2019 ADVANCE DIRECTIVE KEENASAMM MARY V [facility] Encounter Notes: All associated encounter [...] and feedback. Next group will be 08/03/2024 [place] reported he was doing well. He was attentive and participatory. 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
--- OUTSIDE RECORDS SUMMARY | 2025-03-15 14:21 | XMS_ITS ---
Author Name [place] Address [address] [place] [address] Care Team Providers Care Cylinder Checker Name Role Phone YANETH JOE Primary Care [...] Name Patient's Relationship to Policy [facility] ([place]) MEDICARE ADVANTAGE [facility] ([place]NR) Oct 28, 2019 [id number] 09 TUTU,JE JONAS PATIENT Selected Encounter This [...] disorder, unspecified MARK,JAQUELIN E [facility] Plan of Treatment: Future Appointments (+ 6 months) and Future Tests (+/- 45 days) The Plan of Treatment section includes future care activities for the patient from all VA treatmentfa[facility] memorial hospitalities. This section includes future appointments [...] AMBULATORY - PSYCHIATRY [facility] [place] [facility] Nov 26, 2024 11:45 AM AMBULATORY - MEDICINE [facility] [place] [facility] Nov 30, 2024 02:00 PM AMBULATORY - PSYCHIATRY [facility] [place] [facility] Dec 07, 2024 02:00 PM AMBULATORY - PSYCHIATRY [facility] [place] [facility] Dec 21, 2024 02:00 PM AMBULATORY - PSYCHIATRY [facility] [place] [facility] Dec 28, 2024 02:00 PM AMBULATORY - PSYCHIATRY [facility] [place] [facility] Dec 29, 2024 08:30 AM AMBULATORY - NONE [facility] [place] [facility] Jan 04, 2025 02:00 PM AMBULATORY - PSYCHIATRY [facility] [place] [facility] Jan 11, 2025 02:00 PM AMBULATORY - PSYCHIATRY [facility] [place] [facility] Jan 12, 2025 07:30 AM AMBULATORY - NONE [facility] [place] [facility] Jan 18, 2025 02:00 PM AMBULATORY - PSYCHIATRY [facility] [place] [facility] Feb 01, 2025 02:00 PM AMBULATORY - PSYCHIATRY [facility] [place] [facility] Feb 08, 2025 02:00 PM AMBULATORY - PSYCHIATRY [facility] [place] [facility] Feb 15, 2025 02:00 PM AMBULATORY - PSYCHIATRY [facility] [facility] Feb 22, 2025 02:00 PM AMBULATORY - PSYCHIATRY [facility] [facility] March 08, 2025 02:00 PM AMBULATORY - PSYCHIATRY [facility] [facility] March 09, 2025 08:30 AM AMBULATORY - MEDICINE [place] [facility] [facility] Apr 05, 2025 02:00 PM AMBULATORY - PSYCHIATRY [place] [facility] [facility] Apr 12, 2025 02:00 PM AMBULATORY - PSYCHIATRY [place] [facility] [facility] Apr 19, 2025 02:00 PM AMBULATORY - PSYCHIATRY [place] [facility] [facility] Social History: Smoking Status (Most [...] VA-TOBACCO FORMER USER [place] [facility] [place] [facility] Tobacco Use History This section includes a history of the smoking, or tobacco-related health factors, that were collected on or before the date of the Encounter. The data comes from the [place] facility where the Encounter took place. Date/Time Smoking Status/Tobac co Use Comment Facility March 09, 2024 09:00 AM VA-TOBACCO QUIT 15 YRS OR MORE [facility] [place] [facility] March 18, 2023 02:30 PM VA-TOBACCO FORMER USER [place] [facility] [facility] March 18, 2023 02:30 PM VA-TOBACCO QUIT 15 YRS OR MORE [facility] [place] [facility] Jan 11, 2022 08:30 AM VA-TOBACCO FORMER USER [place] [facility] [facility] Jan 11, 2022 08:30 AM VA-TOBACCO QUIT 15 YRS OR MORE [facility] [place] [facility] Dec 26, 2020 09:00 AM VA-TOBACCO FORMER USER [place] [facility] [facility] Dec 26, 2020 09:00 AM VA-TOBACCO QUIT 15 YRS OR MORE [facility] [facility] Dec 08, 2019 09:16 AM VA-TOBACCO FORMER USER [place] [facility] [facility] Dec 08, 2019 09:16 AM VA-TOBACCO QUIT 15 YRS OR MORE [place] [facility] [place] [facility] Oct 14, 2018 02:56 PM VA-TOBACCO FORMER USER [facility] [place] [facility] Oct 14, 2018 02:56 PM VA-TOBACCO QUIT 15 YRS OR MORE [facility] Dec 12, 2017 09:20 AM QUIT TOBACCO USE > 7 YEARS AGO quit > 30 yrs ( 2-3 pks a day) [facility] Advance Directives: All historical and [...] Feb 09, 2019 ADVANCE DIRECTIVE VAN MORENO [facility] Feb 08, 2019 ADVANCE DIRECTIVE SAMM BRINK V [facility] Encounter Notes: All associated encounter notes This [...] [ ] managing PTSD symptoms [x ] G[place] specific resources [ ] anger management [ x ] aging related issues including memory/cognitive decline. Members provided one another with support and feedback. Next group will be 11/23/24 reported he was doing well. No new problems or concerns reported. /gio/ MANDY FLORES [facility] CLINICAL MEDICAL WRITER Signed: 11/02/2024 16:06 MANDY FLORES [facility]
--- OUTSIDE RECORDS SUMMARY | 2025-03-15 14:21 | XMS_ITS ---
Author Name [facility] [place] Organization [place] Address [address] [place] [address] Care Team Providers Care Desk Representative Name Role Phone YANETH JOE Primary [...] Policy 's Name Patient's Relationship to Policy [facility] (WNR) MEDICARE ADVANTAGE [facility] (WNR) Oct 28, 2019 [id number] IVANA CAM PATIENT Selected Encounter This section includes the information on record at [place] for the Encounter. Date/Time Encounter Type Encounter Description Reason Pro vider Source May 25, 2024 02:00 PM Outpatient Encounter [facility] Encounter Template Text not used by [place] Plan of Treatment: Future Appointments (+ 6 months) and Future Tests (+/- 45 days) The Plan of Treatment section includes future care activities for the patient from all [place] treatmentfacilities. This section includes future appointments and [...] AMBULATORY [facility] [place] [facility] Jun 08, 2024 02:00 PM AMBULATORY [facility] [place] [facility] Jun 15, 2024 02:00 PM AMBULATORY [facility] [place] [facility] Jun 22, 2024 02:00 PM AMBULATORY [facility]ATRY [facility] [place] [facility] Jul 13, 2024 02:00 PM [facility]ULATORY [facility] [place] [facility] Jul 13, 2024 02:30 PM AMBULATORY - REHAB MEDICIN E [facility] [place] [facility] Jul 16, 2024 07:15 AM AMBULATORY - NONE [facility] [place] [facility] Jul 20, 2024 02:00 PM AMBULATORY [facility] PS[facility]IATRY [facility] [place] [facility] Jul 27, 2024 02:00 PM AMBULATORY [facility]RY [facility] [place] [facility] Aug 03, 2024 02:00 PM AMBULATORY [facility] PS[facility]IATRY [facility] [place] [facility] Aug 24, 2024 02:00 PM AMBULATORY - PS[facility]CHIATRY [facility] [place] [facility] Aug 31, 2024 02:00 PM AMBULATORY [facility] PS[facility]IATRY [facility] [place] [facility] Sep 08, 2024 08:00 AM AMBULATORY [facility] MEDICINE [facility] [place] [facility] Sep 08, 2024 09:00 AM AMBULATORY [facility] PS[facility]CHIATRY [facility] [place] [facility] Sep 14, 2024 02:00 PM AMBULATORY - PS[facility]CHIATRY [facility] [place] [facility] Sep 21, 2024 02:00 PM AMBULATORY [facility] PS[facility]CHIATRY [facility] [place] [facility] Oct 05, 2024 02:00 PM AMBULATORY [facility] PS[facility]IATRY [facility] [place] [facility] Oct 12, 2024 02:00 PM AMBULATORY [facility] PS[facility]CHIATRY [facility] [place] [facility] Oct 19, 2024 02:00 PM AMBULATORY [facility] PS[facility]CHIATRY [facility] [place] [facility] Oct 27, 2024 11:45 AM AMBULATORY [facility] PS[facility]CHIATRY [facility] [place] [facility] Social History: Smoking Status (Most [...] 09, 2024 09:00 AM VA-TOBACCO FORMER USER [place] [facility] [place] [facility] Tobacco Use History This section includes a history of the smoking, or tobacco-related health factors, that were collected on or before the date of the Encounter. The data comes from the [place] facility where the Encounter took place. Date/Time Smoking Status/Tobac co Use Comment Facility March 09, 2024 09:00 AM VA-TOBACCO QUIT 15 YRS OR MORE [facility] [place] [facility] March 18, 2023 02:30 PM VA-TOBACCO FORMER USER [facility] [place] [facility] March 18, 2023 02:30 PM VA-TOBACCO QUIT 15 YRS OR MORE [place] [facility] [place] [facility] Jan 11, 2022 08:30 AM VA-TOBACCO FORMER USER [facility] [place] [facility] Jan 11, 2022 08:30 AM VA-TOBACCO QUIT 15 YRS OR MORE [facility] [place] [facility] Dec 26, 2020 09:00 AM VA-TOBACCO FORMER USER [facility] [place] [facility] Dec 26, 2020 09:00 AM VA-TOBACCO QUIT 15 YRS OR MORE [facility] [place] [facility] Dec 08, 2019 09:16 AM VA-TOBACCO FORMER USER [facility] [place] [facility] Dec 08, 2019 09:16 AM VA-TOBACCO QUIT 15 YRS OR MORE [facility] [place] [facility] Oct 14, 2018 02:56 PM VA-TOBACCO FORMER USER [facility] [place] [facility] Oct 14, 2018 02:56 PM VA-TOBACCO QUIT 15 YRS OR MORE [facility] [place] [facility] Dec 12, 2017 09:20 AM QUIT TOBACCO USE > 7 YEARS AGO quit > 30 yrs ( 2-3 pks a day) [facility] [place] [facility] Advance Directives: All historical and [...] Feb 09, 2019 ADVANCE DIRECTIVE VAN MORENO [facility] Feb 08, 2019 ADVANCE DIRECTIVE SAMM BRINK [facility] Encounter Notes: All associated encounter notes This section contains the clinical notes associated to the Encounter. Date/Time Encounter Note(s) Provider Source May 25, 2024 09:30 AM ADMINISTRATIVE NOTE: LOCAL TITLE: ADMINISTRATIVE NOTE STANDARD TITLE: ADMINISTRATIVE NOTE DATE OF NOTE: MAY 25, 2024@09:30 ENTRY DATE: MAY 25, 2024@09:30:41 AUTHOR: LORIE BYESR EXP COSIGNER: URGENCY: STATUS: COMPLETED AMSA spoke with who is aware that provider is out today, no group. /gio/ LORIE BYERS [employer]ED CUSTOM SEAMSTRESS Signed: 05/25/2024 09:32 LORIE BYERS [facility]
--- OUTSIDE RECORDS SUMMARY | 2025-03-15 14:21 | XMS_ITS ---
Author Name [place] Address [address] [place] [address] Care Team Providers Care Security Field Supervisor Name Role Phone YANETH JOE Primary [...] to Policy [facility] (WNR) MEDICARE ADVANTAGE [facility] (WNR) Oct 28, 2019 [id number] TUTU,JE JONAS PATIENT Selected Encounter This [...] MARK[facility] Plan of Treatment: Future [...] AMBULATORY - PS[facility]IATRY [facility] [place] [facility] Oct 12, 2024 02:00 PM AMBULATORY - PS[facility]CHIATRY [facility] [place] [facility] Oct 19, 2024 02:00 PM AMBULATORY - PS[facility]CHIATRY [facility] [place] [facility] Oct 27, 2024 11:45 AM AMBULATORY - PSYCHIATRY [facility] [place] [facility] Nov 02, 2024 02:00 PM AMBULATORY - PSYCHIATRY [facility] [place] [facility] Nov 23, 2024 02:00 PM AMBULATORY - PS[facility]CHIATRY [facility] [place] [facility] Nov 26, 2024 11:45 AM AMBULATORY - MEDICINE [facility] [place] [facility] Nov 30, 2024 02:00 PM AMBULATORY - PSYCHIATRY [facility] [place] [facility] Dec 07, 2024 02:00 PM AMBULATORY - PSYCHIATRY [facility] [place] [facility] Dec 21, 2024 02:00 PM AMBULATORY - PSYCHIATRY [facility] [place] [facility] Dec 28, 2024 02:00 PM AMBULATORY - PS[facility]CHIATRY [facility] [place] [facility] Dec 29, 2024 08:30 AM AMBULATORY - NONE [facility] [place] [facility] Jan 04, 2025 02:00 PM AMBULATORY - PS[facility]CHIATRY [facility] [place] [facility] Jan 11, 2025 02:00 PM AMBULATORY - PSYCHIATRY [facility] [place] [facility] Jan 12, 2025 07:30 AM AMBULATORY - NONE [facility] [place] [facility] Jan 18, 2025 02:00 PM AMBULATORY - PS[facility]CHIATRY [facility] [place] [facility] Feb 01, 2025 02:00 PM AMBULATORY - PS[facility]CHIATRY [facility] [place] [facility] Feb 08, 2025 02:00 PM AMBULATORY - PSYCHIATRY [facility] Feb 15, 2025 02:00 PM AMBULATORY - PSYCHIATRY [facility] Feb 22, 2025 02:00 PM AMBULATORY - PSYCHIATRY [facility] Lab Results: +/- 30 days of the encounter This section includes the Chemistry and Hematology Lab Results on record with [place] for the patient. Radiology Reports and Pathology Reports are provided separately, in subsequent sections. Lab Results This section contains the Chemistry/Hematology Results that were resulted 30 days before or 30 daysafter the date of the Encounter. Date/Time Source Result Type Result - Unit Interpretation Reference Range Specimen Type Comment Aug 31, 2024 01:30 PM [facility] PSA SERUM Specimen Type: SERUM No comment entered. Ordering Provider: YANETH JOE Report Released Date/Time: March 09, 2024 09:50 AM Reporting Lab: [address] [id number] Performing Lab: [address] [id number] PSA 8.81 ng/mL H 0.00-4.00 Aug 31, 2024 01:30 PM [facility] BASIC METABOLIC PANEL (non-fasting) SERUM Spe cimen Type: SERUM No comment entered. Ordering Provider: YANETH JOE Report Released Date/Time: March 09, 2024 09:50 AM Reporting Lab: [address] [address] Performing Lab: [address] [id number] UREA NITROGEN 16 mg/dL 7-25 GLUCOSE 106 [...] VA-TOBACCO FORMER USER [place] [facility] [place] [facility] Tobacco Use History This section includes a history of the smoking, or tobacco-related health factors, that were collected on or before the date of the Encounter. The data comes from the [place] facility where the Encounter took place. Date/Time Smoking Status/Tobac co Use Comment Facility March 09, 2024 09:00 AM VA-TOBACCO QUIT 15 YRS OR MORE [facility] [place] [facility] March 18, 2023 02:30 PM VA-TOBACCO FORMER USER [facility] [place] [facility] March 18, 2023 02:30 PM VA-TOBACCO QUIT 15 YRS OR MORE [facility] [place] [facility] Jan 11, 2022 08:30 AM VA-TOBACCO FORMER USER [facility] [place] [facility] Jan 11, 2022 08:30 AM VA-TOBACCO QUIT 15 YRS OR MORE [facility] [place] [facility] Dec 26, 2020 09:00 AM VA-TOBACCO FORMER USER [facility] [place] [facility] Dec 26, 2020 09:00 AM VA-TOBACCO QUIT 15 YRS OR MORE [facility] [place] [facility] Dec 08, 2019 09:16 AM VA-TOBACCO FORMER USER [facility] [place] [facility] Dec 08, 2019 09:16 AM VA-TOBACCO QUIT 15 YRS OR MORE [facility] [place] [facility] Oct 14, 2018 02:56 PM VA-TOBACCO FORMER USER [facility] [place] [facility] Oct 14, 2018 02:56 PM VA-TOBACCO QUIT 15 YRS OR MORE [facility] [place] [facility] Dec 12, 2017 09:20 AM QUIT TOBACCO USE > 7 YEARS AGO quit > 30 yrs ( 2-3 pks a day) [facility] [place] [facility] Advance Directives: All historical [...] Feb 09, 2019 ADVANCE DIRECTIVE VAN MORENO [facility] Feb 08, 2019 ADVANCE DIRECTIVE SAMM BRINK [facility] Encounter Notes: All associated encounter notes This section contains the clinical notes associated to the Encounter. Date/Time Encounter Note(s) Provider Source Sep 21, 2024 02:00 PM SOCIAL WORK GROUP COUNSELING NOTE: LOCAL TITLE: SOCIAL WORK GROUP NOTE STANDARD TITLE: SOCIAL WORK GROUP COUNSELING NOTE DATE OF NOTE: SEP 21, 2024@14:00 ENTRY DATE: SEP 21, 2024@15:44:40 AUTHOR: MANDY FLORES EXP COSIGNER: URGENCY: STATUS: [...] [ ] managing PTSD symptoms [x ] specific resources [x ] anger management - and how age has tempered people's reactions. Members provided one another with support and feedback. Next group will be 10/05/2024 [place] updated on his sister's care and dementia, as well as how he is coping with recent losses. /gio/ MANDY FLORES [facility] CLINICAL DEDICATED REGIONAL DRIVER Signed: 09/21/2024 15:51 MANDY FLORES [facility]
--- OUTSIDE RECORDS SUMMARY | 2025-03-15 14:21 | XMS_ITS ---
Author Name [place] Address [address] [place] [address] Care Team Providers Care Accounting Clerks Supervisor Name Role Phone YANETH JOE Primary [...] to Policy [facility] (WNR) MEDICARE ADVANTAGE [facility] ([place]) Oct 28, 2019 [id number] TUTU,JE JONAS PATIENT Selected Encounter This section includes the information on record at [place] for the Encounter. Date/Time Encounter Type Encounter Description Reason Provider Source Jan 11, 2025 02:00 PM GROUP PS[facility]CH[facility] ICD-10-CM F43.10 Post-traumatic stress disorder, unspecified MARK,ZEUS IE IHE Encounter Template Text not used by [place] Assessments - Encounter Diagnoses This section includes the primary and secondary diagnoses documented for the Encounter. Date/Time Primary/Secondary Diagnosis Diagnosis Name Provider Source Jan 11, 2025 04:21 PM PRIMARY Post-traumatic stress disorder, unspecified [facility] Plan of Treatment: Future Appointments (+ 6 months) and Future Tests (+/- 45 days) The Plan of Treatment section includes future care activities for the patient from all [place] [facility] This section includes future appointments and future orders which are active, pending or scheduled. Future Appointments This section includes appointments that were scheduled to occur 6 months from the date of the Encounter, up to a maximum of 20 appointments. The data comes from all [place] treatment facilities. Appointment Date/Time Appointment Type Appointme nt Facility Name Jan 12, 2025 07:30 AM AMBULATORY - NONE [place] [facility] [place] [facility] Jan 18, 2025 02:00 PM AMBULATORY - PS[place]CHIATRY [place] [facility] [place] [facility] Feb 01, 2025 02:00 PM AMBULATORY - PS[place]CHIATRY [place] [facility] [place] [facility] Feb 08, 2025 02:00 PM AMBULATORY - PS[place]CHIATRY [place] [facility] [place] [facility] Feb 15, 2025 02:00 PM AMBULATORY - PS[place]CHIATRY [place] [facility] [place] [facility] Feb 22, 2025 02:00 PM AMBULATORY - PS[place]CHIATRY [place] [facility] [place] [facility] March 08, 2025 02:00 PM AMBULATORY - PS[place]CHIATRY [place] [facility] [place] [facility] March 09, 2025 08:30 AM AMBULATORY - MEDICINE [place] [facility] [place] [facility] Apr 05, 2025 02:00 PM AMBULATORY - PS[place]CHIATRY [place] [facility] [place] [facility] Apr 12, 2025 02:00 PM AMBULATORY [place] PS[place]IATRY [place] [facility] [place] [facility] Apr 19, 2025 02:00 PM AMBULATORY [place] PS[place]CHIATRY [place] [facility] [place] [facility] Apr 26, 2025 02:00 PM AMBULATORY - PS[place]CHIATRY [place] [facility] [place] [facility] Social History: Smoking Status [...] Tristan ponce March 09, 2024 09:00 AM [place]-TOBACCO QUIT 15 YRS OR MORE [facility] Tobacco Use History This section includes a history of the smoking, or tobacco-related health factors, that were collected on or before the date of the Encounter. The data comes from the [place] facility where the Encounter took place. Date/Time Smoking Status/Tobac co Use Comment Facility March 09, 2024 09:00 AM VA-TOBACCO QUIT 15 YRS OR MORE [place] [facility] [place] [facility] March 18, 2023 02:30 PM VA-TOBACCO FORMER USER [facility] [place] [facility] March 18, 2023 02:30 PM VA-TOBACCO QUIT 15 YRS OR MORE [place] [facility] [place] [facility] Jan 11, 2022 08:30 AM VA-TOBACCO FORMER USER [facility] [place] [facility] Jan 11, 2022 08:30 AM VA-TOBACCO QUIT 15 YRS OR MORE [place] [facility] [place] [facility] Dec 26, 2020 09:00 AM VA-TOBACCO FORMER USER [place] [facility] [place] [facility] Dec 26, 2020 09:00 AM VA-TOBACCO QUIT 15 YRS OR MORE [place] [facility] [place] [facility] Dec 08, 2019 09:16 AM VA-TOBACCO FORMER USER [place] [facility] [place] [facility] Dec 08, 2019 09:16 AM VA-TOBACCO QUIT 15 YRS OR MORE [place] [facility] [place] [facility] Oct 14, 2018 02:56 PM VA-TOBACCO FORMER USER [place] [facility] [place] [facility] Oct 14, 2018 02:56 PM VA-TOBACCO QUIT 15 YRS OR MORE [place] [facility] [place] [facility] Dec 12, 2017 09:20 AM QUIT TOBACCO USE > 7 YEARS AGO quit > 30 yrs ( 2-3 pks a day) [place] [facility] [place] [facility] Advance Directives: All historical and [...] Feb 09, 2019 ADVANCE DIRECTIVE VAN MORENO [place] [facility] [place] [facility] Feb 08, 2019 ADVANCE DIRECTIVE SAMM BRINK [facility] Radiology Reports: +/- 30 days of [...] treatment facilities. 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 1267 images were received by the [place] National Teleradiology Program (NTP) for interpretation. RADIATION DOSE (mGy*cm): 137 IV CONTRAST: Not administered. FINDINGS: Lower Neck: Normal. Airways: Patent centrally. Stable areas of mucous plugging within the right lung base and new areas of mucous plugging within the left lower lobe. Stable areas of traction bronchiectasis. Lungs: Stable moderate centrilobular and paraseptal emphysema. Stable 8 mm solid left lower lobe pulmonary nodule (image 260, series 8). And a 3 mm solid pulmonary nodule within the left lower lobe (image 267, series 8). Stable calcified granulomas. No new suspicious pulmonary nodules. No focal consolidations or pulmonary masses. Pleura: No pleural effusion or pneumothorax. Mediastinum: Normal heart size. Moderate coronary artery calcifications. No pericardial effusion. Great Vessels: Stable mild ectasia of the ascending thoracic aorta measuring up to 4.1 cm in diameter. Moderate atherosclerotic calcification. Normal caliber of the main pulmonary artery. Lymph Nodes: Normal in size. Upper Abdomen: Unremarkable. Chest Wall: Normal. Bones: No acute osseous abnormality. Multilevel degenerative changes of the spine. Impression: 1. Stable subcentimeter pulmonary nodules within the left lower lobe. 2. Stable mucous plugging within the right lung base and new areas of mucous plugging within the left lower lobe. 3. Stable mild ectasia of the ascending thoracic aorta measuring up to 4.1 cm in diameter. 4. Stable moderate centrilobular and paraseptal emphysema. READING PHYSICIAN: Aashish Rutledge MD -[id number] 12/30/2024 4:28 [facility] National Teleradiology Program [phone] (For Medical Practitioner Use Only) Attention Patients / Veterans: If you have questions or concerns about these test results, please contact your ordering provider or primary care team. Primary Diagnostic Code: NO ALERT REQUIRED Primary Interpreting Staff: RADIOLOGY,OUTSIDE SERVICE, Staff Physician / RADIOLOGY,OUTSIDE SERVICE [facility] Encounter Notes: All associated encounter notes This section contains the clinical notes associated to the Encounter. Date/Time Encounter Note(s) Provider Source Jan 11, 2025 02:00 PM SOCIAL WORK GROUP COUNSELING NOTE: LOCAL TITLE: SOCIAL WORK GROUP NOTE STANDARD TITLE: SOCIAL WORK GROUP COUNSELING NOTE DATE OF NOTE: JAN 11, 2025@14:00 ENTRY DATE: JAN 11, 2025@16:16:27 AUTHOR: MANDY FLORES EXP COSIGNER: URGENCY: STATUS: COMPLETED This was a 60-minute supportive psychotherapy group for [employer] Veterans with PTSD. 8 members were present today. Topics discussed today included: [x ] health/mental health issues and concerns of members and loved ones x[ ] activities of daily living, including volunteering, socialization, trying of new activities, and family gatherings [ ] grief and loss, including of family, friends, and/or other veterans. [x ] substance use/addictions, including coping skills to maintain sobriety or address recent use [ ] managing PTSD symptoms [x ] specific resources [ ] anger management [x ] aging related issues including memory/cognitive decline. [x ] group dynamics, cohesion, and process related issues. Members provided one another with support and feedback. Next group will be 01/18/25 [place] reported he was doing well overall and on the mend from his fall on the ice. No new problems or concerns reported. /gio/ MANDY FLORES GALVANIZER CLINICAL POKER PROP PLAYER Signed: 01/11/2025 16:21 MANDY FLORES [place] [facility]
--- OUTSIDE RECORDS SUMMARY | 2025-03-15 14:21 | XMS_ITS ---
Author Name [facility] [place] Organization [place] Address [address] [place] [id number] Care Team Providers Care Customer Service Representative Teacher Name Role Phone YANETH JOE Primary Care [...] 's Name Patient's Relationship to Policy [facility] (WNR) MEDICARE ADVANTAGE [facility] (WNR) Oct 28, 2019 [id number] TUTU,JE JONAS PATIENT Selected Encounter This [...] PRIMARY Post-traumatic stress disorder, unspecified MARK[facility] Plan of Treatment: Future Appointments (+ 6 months) and Future Tests (+/- 45 days) The Plan of Treatment section includes future care activities for the patient from all [facility]. This section includes future appointments and future [...] - PS[facility]IATRY [facility] [place] [facility] May 04, 2024 02:00 PM AMBULATORY - [facility]RY [facility] [place] [facility] May 11, 2024 02:00 PM AMBULATORY - [facility]RY [facility] [place] [facility] May 18, 2024 02:00 PM AMBULATORY - [facility]RY [facility] [place] [facility] Jun 01, 2024 02:00 PM AMBULATORY - [facility] [place] [facility] Jun 08, 2024 02:00 PM AMBULATORY - [facility]RY [facility] [place] [facility] Jun 15, 2024 02:00 PM AMBULATORY - [facility]IATRY [facility] [place] [facility] Jun 22, 2024 02:00 PM AMBULATORY - [facility]IATRY [facility] [place] [facility] Jul 13, 2024 02:00 PM AMBULATORY - PS[facility]IATRY [facility] [place] [facility] Jul 13, 2024 02:30 PM AMBULATORY - REHAB MEDICIN E [facility] [place] [facility] Jul 16, 2024 07:15 AM AMBULATORY - NONE [facility] [place] [facility] Jul 20, 2024 02:00 PM AMBULATORY - PS[facility]CHIATRY [facility] [place] [facility] Jul 27, 2024 02:00 PM AMBULATORY - [facility]IATRY [facility] [place] [facility] Aug 03, 2024 02:00 PM AMBULATORY - PS[facility]IATRY [facility] [place] [facility] Aug 24, 2024 02:00 PM AMBULATORY - PS[facility]CHIATRY [facility] [place] [facility] Aug 31, 2024 02:00 PM AMBULATORY - PS[facility]CHIATRY [facility] [place] [facility] Sep 08, 2024 08:00 AM AMBULATORY - MEDICINE [facility] [place] [facility] Sep 08, 2024 09:00 AM AMBULATORY - PSYCHIATRY [facility] Sep 14, 2024 02:00 PM AMBULATORY - PSYCHIATRY [facility] Sep 21, 2024 02:00 PM AMBULATORY - PSYCHIATRY [facility] Lab Results: +/- 30 days of the encounter This section includes the Chemistry and Hematology Lab Results on record with [place] for the patient. Radiology Reports and Pathology Reports are provided separately, in subsequent sections. Lab Results This section contains the Chemistry/Hematology Results that were resulted 30 days before or 30 daysafter the date of the Encounter. Date/Time Source Result Type Result - Unit Interpretation Reference Range Specimen Type Comment March 03, 2024 07:46 AM [facility] BASIC METABOLIC PANEL (non-fasting) SERUM Spe cimen Type: SERUM No comment entered. Ordering Provider: YANETH JOE Report Released Date/Time: February 28, 2024 10:29 AM Reporting Lab: [address] [address] Performing Lab: [address] [address] UREA NITROGEN 20 mg/dL 7-25 GLUCOSE 105 mg/dL H 65-100 SODIUM 143 mmol/L 135-145 POTASSIUM 4.6 mmol/L 3.5-5.0 CHLORIDE 107 mmol/L 100-110 CO2 26 meq/L 20-30 CREATININE, Serum 1.16 mg/dL 0.50-1.40 eGFR(CKD-EPI 2020) 65 mL/min >60 March 03, 2024 07:46 AM [facility] LIPID PANEL, NON FASTING SERUM Specimen Type: SERUM No comment entered. Ordering Provider: YANETH JOE Report Released Date/Time: February 28, 2024 10:29 AM Reporting Lab: [facility] [address] [facility] [address] Performing Lab: [address] [address] CHOLESTEROL 190 mg/dL TRIGLYCERIDE 68 mg/dL 0-150 [...] VA-TOBACCO FORMER USER [place] [facility] [place] [facility] Tobacco Use History This section includes a history of the smoking, or tobacco-related health factors, that were collected on or before the date of the Encounter. The data comes from the [place] facility where the Encounter took place. Date/Time Smoking Status/Tobac co Use Comment Facility March 09, 2024 09:00 AM VA-TOBACCO QUIT 15 YRS OR MORE [facility] [place] [facility] March 18, 2023 02:30 PM VA-TOBACCO FORMER USER [facility] [place] [facility] March 18, 2023 02:30 PM VA-TOBACCO QUIT 15 YRS OR MORE [facility] [place] [facility] Jan 11, 2022 08:30 AM VA-TOBACCO FORMER USER [facility] [place] [facility] Jan 11, 2022 08:30 AM VA-TOBACCO QUIT 15 YRS OR MORE [facility] [place] [facility] Dec 26, 2020 09:00 AM VA-TOBACCO FORMER USER [facility] [place] [facility] Dec 26, 2020 09:00 AM VA-TOBACCO QUIT 15 YRS OR MORE [facility] [place] [facility] Dec 08, 2019 09:16 AM VA-TOBACCO FORMER USER [facility] [place] [facility] Dec 08, 2019 09:16 AM VA-TOBACCO QUIT 15 YRS OR MORE [facility] [place] [facility] Oct 14, 2018 02:56 PM VA-TOBACCO FORMER USER [facility] [place] [facility] Oct 14, 2018 02:56 PM VA-TOBACCO QUIT 15 YRS OR MORE [facility] [place] [facility] Dec 12, 2017 09:20 AM QUIT TOBACCO USE > 7 YEARS AGO quit > 30 yrs ( 2-3 pks a day) [facility] Advance Directives: All historical and [...] 09, 2019 ADVANCE DIRECTIVE VAN MORENO [facility] Feb 08, 2019 ADVANCE DIRECTIVE SAMM BRINK V [facility] Encounter Notes: All associated encounter notes [...] problems or concerns reported. /gio/ MANDY FLORES [facility] CLINICAL SUPERVISOR DRAWING Signed: 03/30/2024 16:18 MANDY FLORES [facility]
--- OUTSIDE RECORDS SUMMARY | 2025-03-15 14:21 | XMS_ITS | Encounter Summary ---
Author Name [place] Address [address] [place] [id number] Care Team Providers Care Mail Processing Machine Operator Name Role Phone YANETH JOE [...] Policy 's Name Patient's Relationship to Policy [facility] (WNR) MEDICARE ADVANTAGE [facility] ([facility]) Oct 28, 2019 [id number] TUTU,JE JONAS PATIENT Selected Encounter This [...] PRIMARY Post-traumatic stress disorder, unspecified MARK[facility]QUELIN E [facility] Plan of Treatment: Future Appointments (+ 6 months) and Future Tests (+/- 45 days) The Plan of Treatment section includes future care activities for the patient from all [facility]. This section includes future appointments and [...] - PSYCHIATRY [facility] [place] [facility] Jul 13, 2024 02:30 PM AMBULATORY - REHAB MEDICIN E [facility] [place] [facility] Jul 16, 2024 07:15 AM AMBULATORY - NONE [facility] [place] [facility] Jul 20, 2024 02:00 PM AMBULATORY - PS[facility]CHIATRY [facility] [place] [facility] Jul 27, 2024 02:00 PM AMBULATORY - PS[facility]CHIATRY [facility] [place] [facility] Aug 03, 2024 02:00 PM AMBULATORY - PS[facility]CHIATRY [facility] [place] [facility] Aug 24, 2024 02:00 PM AMBULATORY - PS[facility]CHIATRY [facility] [place] [facility] Aug 31, 2024 02:00 PM AMBULATORY - PS[facility]CHIATRY [facility] [place] [facility] Sep 08, 2024 08:00 AM AMBULATORY - MEDICINE [facility] [place] [facility] Sep 08, 2024 09:00 AM AMBULATORY - PSYCHIATRY [facility] [place] [facility] Sep 14, 2024 02:00 PM AMBULATORY - PS[facility]CHIATRY [facility] [place] [facility] Sep 21, 2024 02:00 PM AMBULATORY - PSYCHIATRY [facility] [place] [facility] Oct 05, 2024 02:00 PM AMBULATORY - PS[facility]CHIATRY [facility] [place] [facility] Oct 12, 2024 02:00 PM AMBULATORY - PS[facility]CHIATRY [facility] [place] [facility] Oct 19, 2024 02:00 PM AMBULATORY - PS[facility]CHIATRY [facility] [place] [facility] Oct 27, 2024 11:45 AM AMBULATORY - PSYCHIATRY [facility] [place] [facility] Nov 02, 2024 02:00 PM AMBULATORY - PS[facility]CHIATRY [facility] [place] [facility] Nov 23, 2024 02:00 PM AMBULATORY [place] [facility] [place] [facility] Nov 26, 2024 11:45 AM AM[place]ULATORY - [place]ICINE [place] [facility] [place] [facility] Nov 30, 2024 02:00 PM AMBULATORY - [place]RY [place] [facility] [place] [facility] Social History: Smoking Status (Most [...] YRS OR MORE [place] [facility] [place] [facility] Tobacco Use History This section includes a history of the smoking, or tobacco-related health factors, that were collected on or before the date of the Encounter. The data comes from the [place] facility where the Encounter took place. Date/Time Smoking Status/Tobac co Use Comment Facility March 09, 2024 09:00 AM VA-TOBACCO QUIT 15 YRS OR MORE [facility] [place] [facility] March 18, 2023 02:30 PM VA-TOBACCO FORMER USER [facility] [place] [facility] March 18, 2023 02:30 PM VA-TOBACCO QUIT 15 YRS OR MORE [facility] [place] [facility] Jan 11, 2022 08:30 AM VA-TOBACCO FORMER USER [facility] [place] [facility] Jan 11, 2022 08:30 AM VA-TOBACCO QUIT 15 YRS OR MORE [facility] [place] [facility] Dec 26, 2020 09:00 AM VA-TOBACCO FORMER USER [facility] [place] [facility] Dec 26, 2020 09:00 AM VA-TOBACCO QUIT 15 YRS OR MORE [facility] [place] [facility] Dec 08, 2019 09:16 AM VA-TOBACCO FORMER USER [facility] [place] [facility] Dec 08, 2019 09:16 AM VA-TOBACCO QUIT 15 YRS OR MORE [facility] [place] [facility] Oct 14, 2018 02:56 PM VA-TOBACCO FORMER USER [facility] Oct 14, 2018 02:56 PM VA-TOBACCO QUIT 15 YRS OR MORE [facility] Dec 12, 2017 09:20 AM QUIT TOBACCO USE > 7 YEARS AGO quit > 30 yrs ( 2-3 pks a day) [facility] Advance Directives: All historical and current [...] Feb 09, 2019 ADVANCE DIRECTIVE TIFFANIEISATUTrevor Dow [facility] Feb 08, 2019 ADVANCE DIRECTIVE SAMM BRINK V [facility] Encounter Notes: All associated encounter notes This section contains the clinical notes associated to the Encounter. Date/Time Encounter Note(s) Provider Source Jun 22, 2024 02:00 PM SOCIAL WORK GROUP COUNSELING NOTE: LOCAL TITLE: SOCIAL WORK GROUP NOTE STANDARD TITLE: SOCIAL WORK GROUP COUNSELING NOTE DATE OF NOTE: JUN 22, 2024@14:00 ENTRY DATE: JUN 22, 2024@16:10:45 AUTHOR: MANDY FLORES COSIGNER: URGENCY: STATUS: COMPLETED [...] and feedback. Next group will be 07/06/2024 was attentive and participatory. No new problems or concerns reported. /gio/ ANSHU CHAVEZ CLINICAL C D STRIPPER Signed: 06/22/2024 16:18 MANDY FLORES [facility]
--- OUTSIDE RECORDS SUMMARY | 2025-03-15 14:21 | XMS_ITS ---
Author Name [facility] [place] Address [address] [place] [address] Care Team Providers Care Drawing Checker Name Role Phone YANETH JOE Primary [...] Policy 's Name Patient's Relationship to Policy [facility] (WNR) MEDICARE ADVANTAGE [facility] (WNR) Oct 28, 2019 [id number] TUTU,JE JONAS PATIENT Selected Encounter This section includes the information on record at [place] for the Encounter. Date/Time Encounter Type Encounter Description Reason Provider Source May 04, 2024 02:00 PM [facility] ICD-10-CM F43.10 Post-traumatic stress disorder, unspecified MARK,ZEUS IE IHE Encounter Template Text not used by [place] Assessments - Encounter Diagnoses This section includes the primary and secondary diagnoses documented for the Encounter. Date/Time Primary/Secondary Diagnosis Diagnosis Name Provider Source May 04, 2024 04:04 PM PRIMARY Post-traumatic stress disorder, unspecified MARK[facility]QUELIN E [facility] Plan of Treatment: Future Appointments (+ 6 months) and Future Tests (+/- 45 days) The Plan of Treatment section includes future care activities for the patient from all VA treatmentfacritical access hospitalities. This section includes future appointments and future orders which are active, pending or scheduled. Future Appointments This section includes appointments that were scheduled to occur 6 months from the date of the Encounter, up to a maximum of 20 appointments. The data comes from all [place] treatment facilities. Appointment Date/Time Appointment Type Appointme nt Facility Name May 11, 2024 02:00 PM AMBULATORY - PS[facility]IATRY [facility] [place] [facility] May 18, 2024 02:00 PM AMBULATORY - PSYCHIATRY [facility] [place] [facility] Jun 01, 2024 02:00 PM AMBULATORY - PSYCHIATRY [facility] [place] [facility] Jun 08, 2024 02:00 PM AMBULATORY - PSYCHIATRY [facility] [place] [facility] Jun 15, 2024 02:00 PM AMBULATORY - PSYCHIATRY [facility] [place] [facility] Jun 22, 2024 02:00 PM AMBULATORY - PSYCHIATRY [facility] [place] [facility] Jul 13, 2024 02:00 PM AMBULATORY - PS[facility]CHIATRY [facility] [place] [facility] Jul 13, 2024 02:30 PM AMBULATORY - REHAB MEDICIN E [facility] [place] [facility] Jul 16, 2024 07:15 AM AMBULATORY - NONE [facility] [place] [facility] Jul 20, 2024 02:00 PM AMBULATORY - PSYCHIATRY [facility] [place] [facility] Jul 27, 2024 02:00 PM AMBULATORY - PSYCHIATRY [facility] [place] [facility] Aug 03, 2024 02:00 PM AMBULATORY - PSYCHIATRY [facility] [place] [facility] Aug 24, 2024 02:00 PM AMBULATORY - PSYCHIATRY [facility] [place] [facility] Aug 31, 2024 02:00 PM AMBULATORY - PSYCHIATRY [facility] [place] [facility] Sep 08, 2024 08:00 AM AMBULATORY - MEDICINE [facility] [place] [facility] Sep 08, 2024 09:00 AM AMBULATORY - PSYCHIATRY [facility] [place] [facility] Sep 14, 2024 02:00 PM AMBULATORY - PSYCHIATRY [facility] [place] [facility] Sep 21, 2024 02:00 PM AMBULATORY - [place]RY [place] [facility] [place] [facility] Oct 05, 2024 02:00 PM AMBULATORY [place]RY [place] [facility] [facility] Oct 12, 2024 02:00 PM AMBULATORY - [place]RY [place] [facility] [place] [facility] Social History: Smoking Status (Most current) and Tobacco Use (All prior to encounter date) This section includes the most current, and the historical, smoking and tobacco- related health factors from the [place] facility where the Encounter took place. Current Smoking Status This section includes the most current smoking, or tobacco-related health factor, from the [place] facility where the Encounter took place. Date/Time Current Smoking Status Comment Facil it March 09, 2024 09:00 AM VA-TOBACCO FORMER USER [place] [facility] [place] [facility] Tobacco Use History This section includes a history of the smoking, or tobacco-related health factors, that were collected on or before the date of the Encounter. The data comes from the [place] facility where the Encounter took place. Date/Time Smoking Status/Tobac co Use Comment Facility March 09, 2024 09:00 AM VA-TOBACCO QUIT 15 YRS OR MORE [facility] [place] [facility] March 18, 2023 02:30 PM VA-TOBACCO FORMER USER [facility] [place] [facility] March 18, 2023 02:30 PM VA-TOBACCO QUIT 15 YRS OR MORE [facility] [place] [facility] Jan 11, 2022 08:30 AM VA-TOBACCO FORMER USER [facility] [place] [facility] Jan 11, 2022 08:30 AM VA-TOBACCO QUIT 15 YRS OR MORE [facility] [place] [facility] Dec 26, 2020 09:00 AM VA-TOBACCO FORMER USER [facility] [place] [facility] Dec 26, 2020 09:00 AM VA-TOBACCO QUIT 15 YRS OR MORE [facility] [place] [facility] Dec 08, 2019 09:16 AM VA-TOBACCO FORMER USER [facility] [place] [facility] Dec 08, 2019 09:16 AM VA-TOBACCO QUIT 15 YRS OR MORE [facility] [place] [facility] Oct 14, 2018 02:56 PM VA-TOBACCO FORMER USER [facility] [place] [facility] Oct 14, 2018 02:56 PM VA-TOBACCO QUIT 15 YRS OR MORE [facility] Dec 12, 2017 09:20 AM QUIT TOBACCO USE > 7 YEARS AGO quit > 30 yrs ( 2-3 pks a day) [facility] Advance Directives: All historical and current Section Date Range: From patient's date of to the date document was created. This section includes ALL of a patient's completed or amended [place] Advance and Rescinded Directives. The entries below indicate that a directive exists for the patient, but an actual copy is not included with this document. The data comes from all [place] facilities. Date Advance Directives Provider Source Feb 09, 2019 ADVANCE DIRECTIVE VAN MORENO [facility] Feb 08, 2019 ADVANCE DIRECTIVE SAMM BRINK [facility] Encounter Notes: All associated [...] and feedback. Next group will be 05/11/2024 reported he was doing well, with no new problems or concerns. He was attentive and participatory. /gio/ MANDY FLORES [facility] CLINICAL DRAFTER CARTOGRAPHIC Signed: 05/04/2024 16:05 MANDY FLORES [facility]
--- OUTSIDE RECORDS SUMMARY | 2025-03-15 14:21 | XMS_ITS | Encounter Summary ---
Author Name [facility] of [facility] [place] [facility] [place] Organization [facility] of [place] [place] Address [address] [place] [address] Care Team Providers Care Digital Artist Name Role Phone YANETH JOE Primary [...] Name Patient's Relationship to Policy [facility] ([facility]) MEDICARE ADVANTAGE [facility] ([facility]) Oct 28, 2019 [id number] TUTU,JE JONAS PATIENT Selected Encounter This section includes the information on record at ME for the Encounter. Date/Time Encounter Type Encounter Description Reason Provider Source Oct 12, 2024 02:00 PM [facility] ICD-10-CM F43.10 Post-traumatic stress disorder, unspecified MARK,ZEUS IE IHE Encounter Template Text not used by ME Assessments - Encounter Diagnoses This section includes the primary and secondary diagnoses documented for the Encounter. Date/Time Primary/Secondary Diagnosis Diagnosis Name Provider Source Oct 12, 2024 03:48 PM PRIMARY Post-traumatic stress disorder, unspecified MARK[facility]QUELIN [facility] Plan of Treatment: Future Appointments (+ [...] 20 appointments. The data comes from all ME treatment facilities. Appointment Date/Time Appointment Type Appointme nt Facility Name Oct 19, 2024 02:00 PM AMBULATORY [facility] PS[facility]IATRY [facility] [place] [facility] Oct 27, 2024 11:45 AM AMBULATORY - PS[facility]IATRY [facility] [place] [facility] Nov 02, 2024 02:00 PM AMBULATORY - PS[facility]CHIATRY [facility] [place] [facility] Nov 23, 2024 02:00 PM AMBULATORY - PSYCHIATRY [facility] [place] [facility] Nov 26, 2024 11:45 AM AMBULATORY - MEDICINE [facility] [place] [facility] Nov 30, 2024 02:00 PM AMBULATORY - PSYCHIATRY [facility] [place] [facility] Dec 07, 2024 02:00 PM AMBULATORY - PSYCHIATRY [facility] [place] [facility] Dec 21, 2024 02:00 PM AMBULATORY - PSYCHIATRY [facility] [place] [facility] Dec 28, 2024 02:00 PM AMBULATORY - PSYCHIATRY [facility] [place] [facility] Dec 29, 2024 08:30 AM AMBULATORY - NONE [facility] [place] [facility] Jan 04, 2025 02:00 PM AMBULATORY - PSYCHIATRY [facility] [place] [facility] Jan 11, 2025 02:00 PM AMBULATORY - PSYCHIATRY [facility] [place] [facility] Jan 12, 2025 07:30 AM AMBULATORY - NONE [facility] [place] [facility] Jan 18, 2025 02:00 PM AMBULATORY - PSYCHIATRY [facility] [place] [facility] Feb 01, 2025 02:00 PM AMBULATORY - PSYCHIATRY [facility] [place] [facility] Feb 08, 2025 02:00 PM AMBULATORY - PSYCHIATRY [facility] [place] [facility] Feb 15, 2025 02:00 PM AMBULATORY - PSYCHIATRY [facility] [place] [facility] Feb 22, 2025 02:00 PM AMBULATORY - PSYCHIATRY [facility] [place] [facility] March 08, 2025 02:00 PM AMBULATORY - PSYCHIATRY [facility] [place] [facility] March 09, 2025 08:30 AM AMBULATORY - MEDICINE [facility] [place] [facility] Social History: Smoking Status (Most current) and Tobacco Use (All prior to encounter date) This section includes the most current, and the historical, smoking and tobacco- related health factors from the ME facility where the Encounter took place. Current Smoking Status This section includes the most current smoking, or tobacco-related health factor, from the ME facility where the Encounter took place. Date/Time Current Smoking Status Comment Facil it March 09, 2024 09:00 AM VA-TOBACCO QUIT 15 YRS OR MORE [facility] [place] [facility] Tobacco Use History This section includes a history of the smoking, or tobacco-related health factors, that were collected on or before the date of the Encounter. The data comes from the ME facility where the Encounter took place. Date/Time Smoking Status/Tobac co Use Comment Facility March 09, 2024 09:00 AM VA-TOBACCO QUIT 15 YRS OR MORE [facility] [place] [facility] March 18, 2023 02:30 PM VA-TOBACCO FORMER USER [facility] [place] [facility] March 18, 2023 02:30 PM VA-TOBACCO QUIT 15 YRS OR MORE [facility] [place] [facility] Jan 11, 2022 08:30 AM VA-TOBACCO FORMER USER [facility] [place] [facility] Jan 11, 2022 08:30 AM VA-TOBACCO QUIT 15 YRS OR MORE [facility] [place] [facility] Dec 26, 2020 09:00 AM VA-TOBACCO FORMER USER [facility] [place] [facility] Dec 26, 2020 09:00 AM VA-TOBACCO QUIT 15 YRS OR MORE [facility] [place] [facility] Dec 08, 2019 09:16 AM VA-TOBACCO FORMER USER [facility] [place] [facility] Dec 08, 2019 09:16 AM VA-TOBACCO QUIT 15 YRS OR MORE [facility] [place] [facility] Oct 14, 2018 02:56 PM VA-TOBACCO FORMER USER [facility] [place] [facility] Oct 14, 2018 02:56 PM ME-TOBACCO QUIT 15 YRS OR MORE [facility] Dec 12, 2017 09:20 AM QUIT TOBACCO USE > 7 YEARS AGO quit > 30 yrs ( 2-3 pks a day) [facility] Advance Directives: All historical and current Section Date Range: From patient's date of to the date document was created. This section includes ALL of a patient's completed or amended ME Advance and Rescinded Directives. The entries below indicate that a directive exists for the patient, but an actual copy is not included with this document. The data comes from all ME facilities. Date Advance Directives Provider Source Feb 09, 2019 ADVANCE DIRECTIVE VAN MORENO [facility] Feb 08, 2019 ADVANCE DIRECTIVE SAMM BRINK V [facility] Encounter Notes: All associated encounter notes [...] supportive to other members. /gio/ MANDY FLORES [facility] CLINICAL HAND HOSE CUTTER Signed: 10/12/2024 15:49 MANDY FLORES [facility]
--- OUTSIDE RECORDS SUMMARY | 2025-03-15 14:22 | XMS_ITS ---
Author Organization [facility] Lucie agrawal [place] Address [address] [place] [address] Care Team Providers Care Schedule Analyst Name Role Phone Edwin Bradley Primary Care Provider Unavailab Osman Jeong Unavailable [phone] Allergies Allergen (clinical drug ingredient) Drug/Non Drug [...] Ordered Date Performed Result Body Sit e [id number] NAIL, 6 OR MORE 11/03/2024 N/A [id number] SKIN LESIONS, OVER 4 11/03/2024 N/A Encounters Encounter Location Date Provider Diagnosis [facility] [address] [address] 11/03/2024 Osman Blanc Atherosclerosis of nome artery of both lower extremities, with unspecified presence of clinical manifestation I70.203 ; Tinea unguium B35.1 ; Pain in right toe(s) M79.674 and Pain in left toe(s) M79.675 Assessments Encounter Date Diagnosis (ICD Code) Assessment Notes Treatment Notes Treatment Clinical Notes Section Notes 11/03/2024 Atherosclerosis of nome artery of both lower extremities, with unspecified presence of clinical manifestation (ICD-10 - I70.203) 11/03/2024 Tinea unguium (ICD-10 - B35.1) 11/03/2024 Pain in right toe(s) (ICD-10 - M79.674) 11/03/2024 Pain in left toe(s) (ICD-10 - M79.675) Plan Of Treatment Pending Test Test Name Order Date [id number] NAIL, 6 OR MORE 11/03/2024 [id number] SKIN LESIONS, OVER 4 11/03/19 25 Next Appt Details Follow Up: prn, Reason: Provider Name:Osman Blanc , 05/04/2025 10:00:00 AM, [address] [place] [address], [place], [address], Procedure Notes * Category Sub-Category Detail Notes [...] use of a nail nipper and/or dremel-type salvage grinder, to a more viable healthy nail [...] to maintain effectiveness in symptomatic relief - 27256 Keratoma Treatment Parring or Cutting o f [...] instrumentation by the physician of record - 98047, Q8 Progress Notes * Lynette SANCHEZ JrDOB:[birth year] (74 yo M)Acc No.[id number]:11/03/2024 Progress Note Patient:?Lynette SANCHEZ Jr Provider:?Osman Blanc DPM :1950???Age:74 Y???Sex:Male Praveen e:11/03/2024 Address:[facility] [place], [place] Pcp:Kleber Billy MD Subjective: * Chief Complaints: [...] hip surgery 07/2015 * Hospitalization/Major Diagno stic Procedure:?[facility]- Unknown Headache Migraine for 5 days [...] Assessment: 1.?Tinea unguium - B35.1???2 .?Atherosclerosis of nome artery of both lower extremities, with unspecified presence of clinical manifestation - I70.203 (Primary)???3.?Pain in right toe(s) - M79.674???4.?Pain in left toe(s) - M79.675??? Plan: * Treatment: 2.?Tinea unguium?Procedure: [id number] NAIL, 6 OR MORE * Procedures:?Debride Nail [...] use of a nail nipper and/or dremel-type salvage grinder, to a more viable healthy nail [...] to maintain effectiveness in symptomatic relief - 97698.?Keratoma Treatment:?Parring or Cutting of Benign Hyperkeratotic Lesion(s)?(-57) [...] instrumentation by the physician of record - 51415, Q8.? * Procedure Codes:?63591 DEBRI DE NAIL, 6 OR MORE, Modifiers: XS 76562 TRIM SKIN LESIONS, OVER 4, Modifiers: XS , Q8 * Follow Up:?prn * Images: * Sign off status: Completed true * Provider:?Osman Blanc DPM Date:?2024 Generated for Ally gomez/Leann/Maryjane on:?03/15/2025 02:22 PM EDT History and Physical Notes * [...]
--- OUTSIDE RECORDS SUMMARY | 2025-03-15 14:22 | XMS_ITS | Encounter Summary ---
Author Name Department of [place] Organization [place] of [place] Address [address] [place] [address] Care Team Providers Care Ventilator Specialist Name Role Phone YANETH OJE Primary Care Provider Finesse lopez Insurance Providers: [...] Policy 's Name Patient's Relationship to Policy [facility] (WNR) MEDICARE ADVANTAGE [facility] ([facility]) Oct 28, 2019 [id number] TUTU,JE JONAS PATIENT Selected Encounter This [...] PRIMARY Post-traumatic stress disorder, unspecified MARK,JAQUELIN E [facility] Plan of [...] [facility] [place] [facility] Jun 15, 2024 02:00 PM AMBULATORY - PSYCHIATRY [facility] [place] [facility] Jun 22, 2024 02:00 PM AMBULATORY - PSYCHIATRY [facility] [place] [facility] Jul 13, 2024 02:00 PM [...] 2024 02:00 PM AMBULATORY - PSYCHIATRY [place] [facility] [place] [facility] Oct 27, 2024 11:45 AM AMBULATORY - PSYCHIATRY [place] [facility] [place] [facility] Nov 02, 2024 02:00 PM AMBULATORY - PSYCHIATRY [place] [facility] [place] [facility] [...] VA-TOBACCO FORMER USER [place] [facility] [place] [facility] [...] PM VA-TOBACCO QUIT 15 YRS OR MORE [facility] Dec 12, 2017 09:20 AM QUIT TOBACCO USE > 7 YEARS AGO quit > 30 yrs ( 2-3 pks a day) [facility] Advance Directives: All historical and current [...] Feb 09, 2019 ADVANCE DIRECTIVE VAN MORENO [facility] Feb 08, 2019 ADVANCE DIRECTIVE SAMM BRINK V [facility] Encounter Notes: All associated encounter notes [...] and feedback. Next group will be 06/08/2024 reported he was doing well with no new problems or concerns. /gio/ MANDY FLORES [facility] CLINICAL ENVIRONMENTAL PROTECTION ECONOMIST Signed: 06/01/2024 16:26 [facility]ANDY FLORES [facility]
--- OUTSIDE RECORDS SUMMARY | 2025-03-15 14:22 | XMS_ITS | Encounter Summary ---
Author Name Department of [place] Organization Department of [place] Address [address] [place] [address] Care Team Providers Care Business Intelligence Administrator Name Role Phone YANETH JOE Primary Care [...] Name Patient's Relationship to Policy [facility] ([facility]) MEDICARE ADVANTAGE [facility] ([facility]) Oct 28, 2019 [id number] IVANA CAM PATIENT Selected Encounter This section includes the information on record at AL for the Encounter. Date/Time Encounter Type Encounter Description Reason Provider Source Sep 08, 2024 08:00 AM OFFICE O/P EST MOD 30 MIN PRIMARY CARE/MEDICINE ICD-10-CM R97.20 Elevated prostate specific antigen [PSA] YANETH JOE Ayah Encounter Template Text not used by [place] Assessments - Encounter Diagnoses This section includes the primary and secondary diagnoses documented for the Encounter. Date/Time Primary/Secondary Diagnosis Diagnosis Name Provider Source Sep 08, 2024 08:25 AM PRIMARY Elevated prostate specific antigen [PSA] YANETH JOE [facility] [place] [facility] Sep 08, 2024 08:25 AM SECONDARY Alcohol dependence, in remission FURCOLO,YANETH [facility] [place] [facility] Sep 08, 2024 08:25 AM SECONDARY Allergy to seafood FURCOLO,YANETH [facility] [place] [facility] Sep 08, 2024 08:25 AM SECONDARY Aortic ectasia, unspecified site FURCOLO,YANETH [facility] [place] [facility] Sep 08, 2024 08:25 AM SECONDARY Contact with and exposure to other hazardous substances FURCOLO,YANETH [facility] [place] [facility] Sep 08, 2024 08:25 AM SECONDARY Emphysema, unspecified FURCOLO,YANETH [facility] [place] [facility] Sep 08, 2024 08:25 AM SECONDARY Essential (primary) hypertension FURCOLO,YANETH [facility] [place] [facility] Sep 08, 2024 08:25 AM SECONDARY Hyperlipidemia, unspecified FURCOLO,YANETH [facility] [place] [facility] Sep 08, 2024 08:25 AM SECONDARY Post-traumatic stress disorder, chronic FURCOLO,YANETH [facility] [place] [facility] Sep 08, 2024 08:25 AM SECONDARY Sensorineural hearing loss, bilateral FURCOLO,YANETH [facility] [place] [facility] Plan of Treatment: Future Appointments (+ 6 months) and Future Tests (+/- 45 days) The Plan of Treatment section includes future care activities for the patient from all [place] treatmentfacilities. This section includes future appointments and [...] [facility] [place] [facility] Oct 12, 2024 02:00 PM AMBULATORY - PSYCHIATRY [facility] [place] [facility] Oct 19, 2024 02:00 PM AMBULATORY - PSYCHIATRY [facility] [place] Oct 27, 2024 11:45 AM AMBULATORY - PSYCHIATRY [facility] Nov 02, 2024 02:00 PM AMBULATORY - PSYCHIATRY [facility] [facility] Nov 23, 2024 02:00 PM AMBULATORY - PSYCHIATRY [facility] Nov 26, 2024 11:45 AM AMBULATORY - MEDICINE [facility] [place] [facility] Nov 30, 2024 02:00 PM AMBULATORY - PSYCHIATRY [facility] Dec 07, 2024 02:00 PM AMBULATORY - PSYCHIATRY [facility] Dec 21, 2024 02:00 PM AMBULATORY - PSYCHIATRY [facility] Dec 28, 2024 02:00 PM AMBULATORY - PSYCHIATRY [facility] Dec 29, 2024 08:30 AM AMBULATORY - NONE [facility] [place] [facility] Jan 04, 2025 02:00 PM AMBULATORY - PSYCHIATRY [facility] Jan 11, 2025 02:00 PM AMBULATORY - PSYCHIATRY [facility] Jan 12, 2025 07:30 AM AMBULATORY - NONE [facility] [place] [facility] Jan 18, 2025 02:00 PM AMBULATORY - PSYCHIATRY [facility] Feb 01, 2025 02:00 PM AMBULATORY - PSYCHIATRY [facility] [facility] Feb 08, 2025 02:00 PM AMBULATORY - PSYCHIATRY [facility] Lab Results: +/- 30 days of the [...] Type Comment Aug 31, 2024 01:30 PM [facility] [place] [facility] PSA SERUM Specimen Type: SERUM No comment entered. Ordering Provider: YANETH JOE Report Released Date/Time: March 09, 2024 09:50 AM Reporting Lab: [facility] [address] [address] Performing Lab: [address] [address] PSA 8.81 ng/mL H 0.00-4.00 Aug 31, 2024 01:30 PM [facility] BASIC METABOLIC PANEL (non-fasting) SERUM Spe cimen Type: SERUM No comment entered. Ordering Provider: YANETH JOE Report Released Date/Time: March 09, 2024 09:50 AM Reporting Lab: [address] [address] Performing Lab: [address] [address] UREA NITROGEN 16 mg/dL 7-25 GLUCOSE 106 [...] 127/76 16 99 0 74 187 24 [employer] Social History: Smoking Status (Most current) and [...] Tristan ponce March 09, 2024 09:00 AM AL-TOBACCO FORMER USER [facility] Tobacco Use History This section includes a history of the smoking, or tobacco-related health factors, that were collected on or before the date of the Encounter. The data comes from the AL facility where the Encounter took place. Date/Time Smoking Status/Tobac co Use Comment Facility March 09, 2024 09:00 AM VA-TOBACCO QUIT 15 YRS OR MORE [place] [facility] [place] [facility] March 18, 2023 02:30 PM VA-TOBACCO FORMER USER [facility] [place] [facility] March 18, 2023 02:30 PM VA-TOBACCO QUIT 15 YRS OR MORE [place] [facility] [place] [facility] Jan 11, 2022 08:30 AM VA-TOBACCO FORMER USER [facility] [place] [facility] Jan 11, 2022 08:30 AM VA-TOBACCO QUIT 15 YRS OR MORE [facility] [place] [facility] Dec 26, 2020 09:00 AM VA-TOBACCO FORMER USER AL [facility] [place] [facility] Dec 26, 2020 09:00 AM VA-TOBACCO QUIT 15 YRS OR MORE [place] [facility] [place] [facility] Dec 08, 2019 09:16 AM VA-TOBACCO FORMER USER AL [facility] [facility] Dec 08, 2019 09:16 AM VA-TOBACCO QUIT 15 YRS OR MORE [place] [facility] [place] [facility] Oct 14, 2018 02:56 PM VA-TOBACCO FORMER USER AL [facility] [facility] Oct 14, 2018 02:56 PM VA-TOBACCO QUIT 15 YRS OR MORE [facility] [place] [facility] Dec 12, 2017 09:20 AM QUIT TOBACCO USE > 7 YEARS AGO quit > 30 yrs ( 2-3 pks a day) [place] [facility] [place] [facility] Advance Directives: [...] DIRECTIVE VAN MORENO [place] [facility] [place] [facility] Feb 08, 2019 ADVANCE DIRECTIVE SAMM BRINK [facility] Encounter Notes: All associated encounter [...] their sexual orientation as: Straight or Heterosexual /gio/ TAE WOODS LPN License Practical Nurse Signed: 09/08/2024 08:04 TAE WOODS [facility] Sep 08, 2024 08:01 AM PHYSICIAN NOTE: [...] === Community Primary Care Provider: Dr. 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 +AO === HISTORY OF PRESENT ILLNESS === Patient presents today for routine f/u. reviewed labs. no further hematuria. discussed recent lung ca screening eval- CT - which also visualized AAA- stable. === RELEVANT PAST MEDICAL HISTORY === Active problems - Computerized Problem List is the source for the followin. Exposure to potentially hazardous substance ([facility] [id number]) Entered automatically through [employer] Problem List documentation program 2. 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 Bilateral hearing loss 4. Emphysema of lung On chest CT 07/2022 5. Incomplete bladder emptying NON AL UROLOGY CONSULT - orderby non AL PCP Medication - ? ( not confiemd) [...] HISTORY === Background: born [place] raised in [place], greaduated HS. came to [place] in [place] Marital Status: Children: 2 girls- one lives with him, one in [place] Lives with: and daughter Employment Status: diability [...] 07:59) pulse: 68 (09/08/2024 07:59) resp: 16 (09/08/2024:59) temp: 97.4 F [36.3 C] (09/08/2024:) Ht: 74 in [188.0 cm] (09/08/2024:) Wgt: 187 lb [84.82 kg] (09/08/2024:) BMI: BMI: 24.1 Exam: - - - [...] 106 H mg/dL 65 - 100 SERUM Nov Feb 06 Reference 2023 2018 13:30 09:30 Units Ranges PSA 8.81 H 2.50 ng/mL 0 - 4 === ASSESSMENT AND PLAN === Active problems - Computerized Problem List is the source for the followin. Exposure to potentially hazardous substance ([facility] [id number]) Entered automatically through [employer] Problem List documentation program 2. Dilatation of [...] - due 2024- outside primary care orders- [place] lung Ca screening 12/2023 Abdominal Aortic Aneurysm [...] PHYSICIAN Signed: 09/08/2024 08:25 YANETH JOE [facility]
--- OUTSIDE RECORDS SUMMARY | 2025-03-15 14:22 | XMS_ITS | Encounter Summary ---
Author Name [facility] [place] Organization [place] Address [address] [place] [id number] Care Team Providers Care Lobby Attendant Name Role Phone YANETH JOE Primary Care [...] Policy 's Name Patient's Relationship to Policy [facility] (WNR) MEDICARE ADVANTAGE [facility] Oct 28, 2019 [id number] TUTU,JE JONAS PATIENT Selected Encounter This section includes the information on record at [place] for the Encounter. Date/Time Encounter Type Encounter Description Reason Provider Source Aug 03, 2024 02:00 PM [facility] ICD-10-CM F43.10 Post-traumatic stress disorder, unspecified MARK,ZEUS IE IHE Encounter Template Text not used by [place] Assessments - Encounter Diagnoses This section includes the primary and secondary diagnoses documented for the Encounter. Date/Time Primary/Secondary Diagnosis Diagnosis Name Provider Source Aug 03, 2024 04:03 PM PRIMARY Post-traumatic stress disorder, unspecified MARK,JAQUELIN E [facility] Plan of Treatment: Future Appointments (+ 6 months) and Future Tests (+/- 45 days) The Plan of Treatment section includes future care activities for the patient from all [facility]. This section includes future appointments and future orders which are active, pending or scheduled. Future Appointments This section includes appointments that were scheduled to occur 6 months from the date of the Encounter, up to a maximum of 20 appointments. The data comes from all [place] treatment facilities. Appointment Date/Time Appointment Type Appointme nt Facility Name Aug 24, 2024 02:00 PM AMBULATORY [facility] [place] [facility] Aug 31, 2024 02:00 PM AMBULATORY [facility]ATRY [facility] [place] [facility] Sep 08, 2024 08:00 AM AMBULATORY - MEDICINE [facility] [place] [facility] Sep 08, 2024 09:00 AM AMBULATORY [facility] PS[facility]IATRY [facility] [place] [facility] Sep 14, 2024 02:00 PM AMBULATORY - PS[facility]CHIATRY [facility] [place] [facility] Sep 21, 2024 02:00 PM AMBULATORY [facility] PS[facility]IATRY [facility] [place] [facility] Oct 05, 2024 02:00 PM AMBULATORY - PS[facility]CHIATRY [facility] [place] [facility] Oct 12, 2024 02:00 PM AMBULATORY [facility] PS[facility]CHIATRY [facility] [place] [facility] Oct 19, 2024 02:00 PM AMBULATORY - PS[facility]CHIATRY [facility] [place] [facility] Oct 27, 2024 11:45 AM AMBULATORY - PS[facility]CHIATRY [facility] [place] [facility] Nov 02, 2024 02:00 PM AMBULATORY [facility] PS[facility]IATRY [facility] [place] [facility] Nov 23, 2024 02:00 PM AMBULATORY - PS[facility]CHIATRY [facility] [place] [facility] Nov 26, 2024 11:45 AM AMBULATORY - MEDICINE [facility] [place] [facility] Nov 30, 2024 02:00 PM AMBULATORY - PSYCHIATRY [facility] [place] [facility] Dec 07, 2024 02:00 PM AMBULATORY [facility] PS[facility]CHIATRY [facility] [place] [facility] Dec 21, 2024 02:00 PM AMBULATORY - PS[facility]CHIATRY [facility] [place] [facility] Dec 28, 2024 02:00 PM AMBULATORY [facility] PS[facility]CHIATRY [facility] [place] [facility] Dec 29, 2024 08:30 AM AMBULATORY - NONE [facility] Jan 04, 2025 02:00 PM AMBULATORY - PSYCHIATRY [facility] Jan 11, 2025 02:00 PM AMBULATORY - PSYCHIATRY [facility] Lab Results: +/- 30 days of the encounter This section includes the Chemistry and Hematology Lab Results on record with [place] for the patient. Radiology Reports and Pathology Reports are provided separately, in subsequent sections. Lab Results This section contains the Chemistry/Hematology Results that were resulted 30 days before or 30 daysafter the date of the Encounter. Date/Time Source Result Type Result - Unit Interpretation Reference Range Specimen Type Comment Aug 31, 2024 01:30 PM [facility] PSA SERUM Specimen Type: SERUM No comment entered. Ordering Provider: YANETH JOE Report Released Date/Time: March 09, 2024 09:50 AM Reporting Lab: [address] [address] Performing Lab: [address] [address] PSA 8.81 ng/mL H 0.00-4.00 Aug 31, 2024 01:30 PM [facility] BASIC METABOLIC PANEL (non-fasting) SERUM Spe cimen Type: SERUM No comment entered. Ordering Provider: YANETH JOE Report Released Date/Time: March 09, 2024 09:50 AM Reporting Lab: [address] [address] Performing Lab: [address] [address] UREA NITROGEN 16 mg/dL 7-25 GLUCOSE 106 [...] and tobacco- related health factors from the [place] facility where the Encounter took place. Current Smoking Status This section includes the most current smoking, or tobacco-related health factor, from the [place] facility where the Encounter took place. Date/Time Current Smoking Status Comment Facil it March 09, 2024 09:00 AM VA-TOBACCO QUIT 15 YRS OR MORE [place] [facility] [place] [facility] Tobacco Use History This section includes a history of the smoking, or tobacco-related health factors, that were collected on or before the date of the Encounter. The data comes from the [place] facility where the Encounter took place. Date/Time Smoking Status/Tobac co Use Comment Facility March 09, 2024 09:00 AM VA-TOBACCO QUIT 15 YRS OR MORE [facility] [place] [facility] March 18, 2023 02:30 PM VA-TOBACCO FORMER USER [facility] [place] [facility] March 18, 2023 02:30 PM VA-TOBACCO QUIT 15 YRS OR MORE [facility] [place] [facility] Jan 11, 2022 08:30 AM VA-TOBACCO FORMER USER [facility] [place] [facility] Jan 11, 2022 08:30 AM VA-TOBACCO QUIT 15 YRS OR MORE [facility] [place] [facility] Dec 26, 2020 09:00 AM VA-TOBACCO FORMER USER [facility] [place] [facility] Dec 26, 2020 09:00 AM VA-TOBACCO QUIT 15 YRS OR MORE [facility] [place] [facility] Dec 08, 2019 09:16 AM VA-TOBACCO FORMER USER [facility] [place] [facility] Dec 08, 2019 09:16 AM VA-TOBACCO QUIT 15 YRS OR MORE [facility] [place] [facility] Oct 14, 2018 02:56 PM VA-TOBACCO FORMER USER [facility] [place] [facility] Oct 14, 2018 02:56 PM VA-TOBACCO QUIT 15 YRS OR MORE [facility] [place] [facility] Dec 12, 2017 09:20 AM QUIT TOBACCO USE > 7 YEARS AGO quit > 30 yrs ( 2-3 pks a day) [facility] [place] [facility] Advance Directives: All historical and current Section Date Range: From patient's date of to the date document was created. This section includes ALL of a patient's completed or amended [place] Advance and Rescinded Directives. The entries below indicate that a directive exists for the patient, but an actual copy is not included with this document. The data comes from all [place] facilities. Date Advance Directives Provider Source Feb 09, 2019 ADVANCE DIRECTIVE VAN MORENO [facility] Feb 08, 2019 ADVANCE DIRECTIVE SAMM BRNIK [facility] Encounter Notes: All associated encounter notes This section contains the clinical notes associated to the Encounter. Date/Time Encounter Note(s) Provider Source Aug 03, 2024 02:00 PM SOCIAL WORK GROUP COUNSELING NOTE: LOCAL TITLE: SOCIAL WORK GROUP NOTE STANDARD TITLE: SOCIAL WORK GROUP COUNSELING NOTE DATE OF NOTE: AUG 03, 2024@14:00 ENTRY DATE: AUG 03, 2024@15:52:21 AUTHOR: MANDY FLORES EXP COSIGNER: URGENCY: STATUS: [...] member with terminal cancer. /gio/ MANDY FLORES [facility] CLINICAL TELEVISION INSPECTOR Signed: 08/03/2024 16:04 MANDY FLORES [facility]
--- OUTSIDE RECORDS SUMMARY | 2025-03-15 14:22 | XMS_ITS | Encounter Summary ---
Author Name Department of Vetera Affairs [place]) Organization Department of [place] Address [address] [place] [id number] Care Team Providers Care Digestion Operator Name Role Phone YANETH JOE Primary [...] to Policy [facility] MEDICARE ADVANTAGE [facility]) Oct 28, 2019 [id number] TUTU,JE JONAS PATIENT Selected Encounter This section includes the information on record at [place] for the Encounter. Date/Time Encounter Type Encounter Description Reason Provider Source Dec 21, 2024 02:00 PM [facility] ICD-10-CM F43.10 Post-traumatic stress disorder, unspecified MARK,ZEUS IE IHE Encounter Template Text not used by [place] Assessments - Encounter Diagnoses This section includes the primary and secondary diagnoses documented for the Encounter. Date/Time Primary/Secondary Diagnosis Diagnosis Name Provider Source Dec 21, 2024 04:15 PM PRIMARY Post-traumatic stress disorder, unspecified MARK,[facility]QUELIN E [facility] Plan of Treatment: Future Appointments (+ 6 months) and Future Tests (+/- 45 days) The Plan of Treatment section includes future care activities for the patient from all [facility] [facility]. This section includes future appointments and future orders which are active, pending or scheduled. Future Appointments This section includes appointments that were scheduled to occur 6 months from the date of the Encounter, up to a maximum of 20 appointments. The data comes from all [place] treatment facilities. Appointment Date/Time Appointment Type Appointme nt Facility Name Dec 28, 2024 02:00 PM AMBULATORY [facility]ATRY [facility] [place] [facility] Dec 29, 2024 08:30 AM AMBULATORY - NONE [facility] [place] [facility] Jan 04, 2025 02:00 PM AMBULATORY - PS[facility]CHIATRY [facility] [place] [facility] Jan 11, 2025 02:00 PM AMBULATORY - PSYCHIATRY [facility] [place] [facility] Jan 12, 2025 07:30 AM AMBULATORY - NONE [facility] [place] [facility] Jan 18, 2025 02:00 PM AMBULATORY - PSYCHIATRY [facility] [place] [facility] Feb 01, 2025 02:00 PM AMBULATORY - PSYCHIATRY [facility] [place] [facility] Feb 08, 2025 02:00 PM AMBULATORY - PS[facility]CHIATRY [facility] [place] [facility] Feb 15, 2025 02:00 PM AMBULATORY - PSYCHIATRY [facility] [place] [facility] Feb 22, 2025 02:00 PM AMBULATORY - PSYCHIATRY [facility] [place] [facility] March 08, 2025 02:00 PM AMBULATORY - PSYCHIATRY [facility] [place] [facility] March 09, 2025 08:30 AM AMBULATORY - MEDICINE [facility] [place] [facility] Apr 05, 2025 02:00 PM AMBULATORY - PSYCHIATRY [facility] [place] [facility] Apr 12, 2025 02:00 PM AMBULATORY - PS[facility]CHIATRY [facility] [place] [facility] Apr 19, 2025 02:00 PM AMBULATORY - PS[facility]CHIATRY [facility] [place] [facility] Apr 26, 2025 02:00 PM AMBULATORY - PSYCHIATRY [facility] [place] [facility] Social History: Smoking Status (Most [...] VA-TOBACCO QUIT 15 YRS OR MORE [place] [facility] [place] [facility] Tobacco Use History This section includes a history of the smoking, or tobacco-related health factors, that were collected on or before the date of the Encounter. The data comes from the [place] facility where the Encounter took place. Date/Time Smoking Status/Tobac co Use Comment Facility March 09, 2024 09:00 AM VA-TOBACCO QUIT 15 YRS OR MORE [facility] [place] [facility] March 18, 2023 02:30 PM VA-TOBACCO FORMER USER [facility] [place] [facility] March 18, 2023 02:30 PM VA-TOBACCO QUIT 15 YRS OR MORE [facility] [place] [facility] Jan 11, 2022 08:30 AM VA-TOBACCO FORMER USER [facility] [place] [facility] Jan 11, 2022 08:30 AM VA-TOBACCO QUIT 15 YRS OR MORE [facility] [place] [facility] Dec 26, 2020 09:00 AM VA-TOBACCO FORMER USER [facility] [place] [facility] Dec 26, 2020 09:00 AM VA-TOBACCO QUIT 15 YRS OR MORE [facility] [place] [facility] Dec 08, 2019 09:16 AM VA-TOBACCO FORMER USER [facility] [place] [facility] Dec 08, 2019 09:16 AM VA-TOBACCO QUIT 15 YRS OR MORE [facility] [place] [facility] Oct 14, 2018 02:56 PM VA-TOBACCO FORMER USER [facility] [place] [facility] Oct 14, 2018 02:56 PM VA-TOBACCO QUIT 15 YRS OR MORE [facility] [place] [facility] Dec 12, 2017 09:20 AM QUIT TOBACCO USE > 7 YEARS AGO quit > 30 yrs ( 2-3 pks a day) [facility] [place] [facility] Advance Directives: All historical and [...] Feb 09, 2019 ADVANCE DIRECTIVE VAN MORENO [facility] Feb 08, 2019 ADVANCE DIRECTIVE SAMM BRINK V A [facility] Radiology Reports: +/- 30 days [...] the Encounter. The data comes from all [place] treatment facilities. Date/Time Radiology Report Provider Source Dec 29, 2024 08:[address] W/O CONT: HIGINIO CAM [id number] -[id number] M Exm Date: DEC 29, 2024@08:25 Req Phys: NADIA DHALIWAL Pat Loc: PTT PHONE PACT [employer] [place] (Req'g Loc) Img Loc: NHM/CT Service: Unknown [place] [address] (Case [id number] COMPLETE) CT THORAX W/O CONT (CT Detailed) CPT:36954 Reason for Study: former heavy smoker; ascending thoracic aorta ectatic 4.1cm Clinical History: Report Status: Verified Date Reported: DEC 30, 2024 Date Verified: DEC 30, 2024 Bench Tool Maker E-Sig: Report: CT THORAX W/O CONT [PRINTSET] HISTORY: former heavy smoker; ascending thoracic aorta ectatic 4.1cm COMPARISON: 01/10/2024 TECHNIQUE: Helical CT of the chest, with multiplanar reformats, was performed at the local [place] facility. 1267 images were received by the [place] National Teleradiology Program (NTP) for interpretation. RADIATION [...] paraseptal emphysema. READING PHYSICIAN: Aashish Rutledge MD -[id number] 12/30/2024 4:28 [facility] National Teleradiology Program [phone] (For Medical Practitioner Use Only) Attention Patients / Veterans: If you have questions or concerns about these test results, please contact your ordering provider or primary care team. Primary Diagnostic Code: NO ALERT REQUIRED Primary Interpreting Staff: RADIOLOGY,OUTSIDE SERVICE, Staff Physician / RADIOLOGY,OUTSIDE SERVICE [facility] Encounter Notes: All associated encounter notes This section contains the clinical notes associated to the Encounter. Date/Time Encounter Note(s) Provider Source Dec 21, 2024 02:00 PM SOCIAL WORK GROUP COUNSELING NOTE: LOCAL TITLE: SOCIAL WORK GROUP NOTE STANDARD TITLE: SOCIAL WORK GROUP COUNSELING NOTE DATE OF NOTE: DEC 21, 2024@14:00 ENTRY DATE: DEC 21, 2024@16:10:58 AUTHOR: MANDY FLORES EXP COSIGNER: URGENCY: STATUS: COMPLETED This was a 60-minute supportive psychotherapy group for [place] Veterans with PTSD. 8 members were present today. Topics discussed today included: [x ] health/mental health issues and concerns of members and loved ones [x ] activities of daily living, including volunteering, socialization, trying of new activities, and family gatherings [ ] grief and loss, including of family, friends, and/or other veterans. [ ] substance use, including coping skills to maintain sobriety or address recent use [ ] managing PTSD symptoms [ x ] specific resources [ ] anger management [ x ] aging related issues including memory/cognitive decline. [x ] group dynamics, cohesion, and process related issues. Members provided one another with support and feedback. Next group will be 12/28/24 Rowland reported on a fall he had this past week on the ice. Otherwise no new problems or concerns. He shared his experiences of dealing with his sister's dementia when this topic was raised. /gio/ ANSHU CHAVEZ CLINICAL MS SQL DEVELOPER Signed: 12/21/2024 16:16 MANDY FLORES [place] [facility]
--- OUTSIDE RECORDS SUMMARY | 2025-03-15 14:22 | XMS_ITS ---
Author Name [place] Address [address] [place] [id number] Care Team Providers Care Locomotive Pipe Fitter Name Role Phone YANETH JOE Primary Care [...] Policy [facility]) MEDICARE ADVANTAGE [facility] ([facility]) Oct 28, 2019 [id number] TUTU,JE JONAS PATIENT Selected Encounter This section includes the information on record at [place] for the Encounter. Date/Time Encounter Type Encounter Description Reason Provider Source March 08, 2025 02:00 PM GROUP PSYCHOTHERAPY [facility] ICD-10-CM F43.10 Post-traumatic stress disorder, unspecified MARK,ZEUS IE IHE Encounter Template Text not used by [place] Assessments - Encounter Diagnoses This section includes the primary and secondary diagnoses documented for the Encounter. Date/Time Primary/Secondary Diagnosis Diagnosis Name Provider Source March 08, 2025 04:38 PM PRIMARY Post-traumatic stress disorder, unspecified MARK,JAQUELIN E [facility] Plan of Treatment: Future Appointments (+ 6 months) and Future Tests (+/- 45 days) The Plan of Treatment section includes future care activities for the patient from all [place] treatmentfacilities. This section includes future appointments and future orders which are active, pending or scheduled. Future Appointments This section includes appointments that were scheduled to occur 6 months from the date of the Encounter, up to a maximum of 20 appointments. The data comes from all [place] treatment facilities. Appointment Date/Time Appointment Type Appointme nt Facility Name March 09, 2025 08:30 AM AMBULATORY [place]ICINE [place] [facility] [place] [facility] Apr 05, 2025 02:00 PM AMBULATORY - PS[place]CHIATRY [place] [facility] [place] [facility] Apr 12, 2025 02:00 PM AMBULATORY - PS[place]CHIATRY [place] [facility] [place] [facility] Apr 19, 2025 02:00 PM AMBULATORY - PS[place]CHIATRY [place] [facility] [place] [facility] Apr 26, 2025 02:00 PM AMBULATORY - PS[place]CHIATRY [place] [facility] [place] [facility] Jul 15, 2025 07:30 AM [facility] Lab Results: +/- 30 days of the encounter This section includes the Chemistry and Hematology Lab Results on record with [place] for the patient. Radiology Reports and Pathology Reports are provided separately, in subsequent sections. Lab Results This section contains the Chemistry/Hematology Results that were resulted 30 days before or 30 daysafter the date of the Encounter. Date/Time Source Result Type Result - Unit Interpretation Reference Range Specimen Type Comment March 04, 2025 07:[address] [facility] [facility] PSA SERUM Specimen Type: SERUM No comment entered. Ordering Provider: YANETH JOE Report Released Date/Time: Sep 08, 2024 08:18 AM Reporting Lab: [facility] [address] [facility] [facility] [facility] [address] Performing Lab: [facility] [address] PSA 5.2 ng/mL H 0.0-4.0 March 04, 2025 07:[address] [facility] LIPID PANEL FASTING SERUM Specimen Type: SERU M No comment entered. Ordering Provider: YANETH JOE Report Released Date/Time: Sep 08, 2024 08:18 AM Reporting Lab: [facility] [address] [facility] [facility] [address] Performing Lab: [facility] [address] [facility] [facility] [address] CHOLESTEROL 210 mg/dL H TRIGLYCERIDE 57 mg/dL 0-150 LDL calculated 124 mg/dL 0-129 CHOL/HDL 2.8 HDL CHOLESTEROL 75 mg/dL >40 March 04, 2025 07:39 AM [facility] BASIC METABOLIC PANEL (fasting) SERUM Specime n Type: SERUM No comment entered. Ordering Provider: YANETH JOE Report Released Date/Time: Sep 08, 2024 08:18 AM Reporting Lab: [facility] [address] [facility] [facility] [address] Performing Lab: [address] [address] UREA NITROGEN 19 mg/dL 8-26 GLUCOSE 87 mg/dL 65-100 SODIUM 143 mmol/L 136-145 POTASSIUM 5.0 mmol/L 3.5-5.1 CHLORIDE 106 mmol/L 98-107 CO2 27 meq/L 23-31 CALCIUM 9.8 mg/dL 8.8-10 CREATININE, Serum 1.06 mg/dL 0.72-1.25 eGFR(CKD-EPI 2020) 72 mL/min >60 Social History: Smoking Status (Most current) and Tobacco Use (All prior to encounter date) This section includes the most current, and the historical, smoking and tobacco- related health factors from the [place] facility where the Encounter took place. Current Smoking Status This section includes the most current smoking, or tobacco-related health factor, from the [place] facility where the Encounter took place. Date/Time Current Smoking Status Comment [facility] March 09, 2024 09:00 AM VA-TOBACCO FORMER USER [facility] Tobacco Use History This section includes a history of the smoking, or tobacco-related health factors, that were collected on or before the date of the Encounter. The data comes from the [place] facility where the Encounter took place. Date/Time Smoking Status/Tobac co Use Comment Facility March 09, 2024 09:00 AM [place]-TOBACCO QUIT 15 YRS OR MORE [facility] March 18, 2023 02:30 PM VA-TOBACCO FORMER USER [facility] [place] [facility] March 18, 2023 02:30 PM VA-TOBACCO QUIT 15 YRS OR MORE [facility] [place] [facility] Jan 11, 2022 08:30 AM VA-TOBACCO FORMER USER [facility] [place] [facility] Jan 11, 2022 08:30 AM VA-TOBACCO QUIT 15 YRS OR MORE [facility] [place] [facility] Dec 26, 2020 09:00 AM VA-TOBACCO FORMER USER [facility] [place] [facility] Dec 26, 2020 09:00 AM VA-TOBACCO QUIT 15 YRS OR MORE [facility] [place] [facility] Dec 08, 2019 09:16 AM VA-TOBACCO FORMER USER [facility] [place] [facility] Dec 08, 2019 09:16 AM VA-TOBACCO QUIT 15 YRS OR MORE [place] [facility] [place] [facility] Oct 14, 2018 02:56 PM VA-TOBACCO FORMER USER [place] [facility] [place] [facility] Oct 14, 2018 02:56 PM VA-TOBACCO QUIT 15 YRS OR MORE [place] [facility] [place] [facility] Dec 12, 2017 09:20 AM QUIT TOBACCO USE > 7 YEARS AGO quit > 30 yrs ( 2-3 pks a day) [place] [facility] [place] [facility] Advance Directives: All historical and current Section Date Range: From patient's date of to the date document was created. This section includes ALL of a patient's completed or amended [place] Advance and Rescinded Directives. The entries below indicate that a directive exists for the patient, but an actual copy is not included with this document. The data comes from all [place] facilities. Date Advance Directives Provider Source Feb 09, 2019 ADVANCE DIRECTIVE VAN MORENO [place] [facility] [place] [facility] Feb 08, 2019 ADVANCE DIRECTIVE SAMM BRINK V [place] [facility] [place] [facility] Encounter Notes: All associated encounter notes This section contains the clinical notes associated to the Encounter. Date/Time Encounter Note(s) Provider Source March 11, 2025 10:28 AM MENTAL HEALTH GLADIS TMENT PLAN NOTE: LOCAL TITLE: MH TREATMENT PLAN STANDARD TITLE: MENTAL HEALTH TREATMENT PLAN NOTE DATE OF NOTE: MARCH 11, 2025@10:28:02 ENTRY DATE: MARCH 11, 2025@10:28:15 AUTHOR: MANDY FLORES EXP COSIGNER: URGENCY: STATUS: COMPLETED MH TREATMENT PLAN - February, @ 10:28AM Visit Date: February, @ 14:00 - [facility]P HOME THEATER EXPERT: MANDY FLORES / LUPIS Dow TREATMENT PLAN: Problem: PTSD symptoms Status: REMOVED Comments: Currently not see a psychiatric prescriber 03/11/2025 (by MANDY FLORES) Goal: Maintain medication to assist with his symptoms Status: REMOVED Comments: Removed by removing problem. 03/11/2025 (by MANDY FLORES) Objective: Overall health improvement Status: REMOVED Comments: Removed by removing problem. 03/11/2025 (by MANDY FLORES) Projected Target: 02/05/2022 Intervention: Medication managment and reevaluation. Status: REMOVED Comments: Removed by removing problem. 03/11/2025 (by MANDY FLORES) Discipline: Mental Health Clinic Time Frame: One time every 2 months for 3 months Intervention: Continue current medication and therapy. Monitor q 4 months for progress. Vet to call and come in early if any issues or problems with meds. Status: REMOVED Comments: Removed by removing problem. 03/11/2025 (by MANDY FLORES) Discipline: Mental Health Clinic Time Frame: Four times per year for 1 year Problem: PTSD Status: ACTIVE Goal: Maintaining and/or improving management of symptoms Status: ACTIVE Objective: Connection with other [place] Veterans for resource enhancement, support, and symptom management Status: ACTIVE Intervention: Group psychotherapy with other [place] Veterans suffering from PTSD Status: ACTIVE Discipline: Mental Health Clinic Time Frame: One time per week for 1 week Providers: MANDY FLORES: NUTRITION SERVICES AIDE Comments: continues to be a regular and active participant of the group. He will continue to attend this group and work on identified objective. 04/23/2023 (by MANDY FLORES) DISCIPLINE: Mental Health Clinic Entered Treatment: 11/15/2020 @ 12:02PM Review Date: 03/11/2026 Anticipated Discharge: None INTERDISCIPLINARY TEAM: MANDY FLORES: NUTRITION SERVICES AIDE COMMUNICATION: Relevant treatment options, including evidence-based interventions, were considered and discussed with the . NO A copy of the treatment plan was given to the [place]. NO Risks, benefits, and potential complications were discussed with the . NO /gio/ ANSHU CHAVEZ CLINICAL NUTRITION SERVICES AIDE Signed: 03/11/2025 10:28 MANDY FLORES [facility] March 08, 2025 02:00 PM SOCIAL WORK GROUP COUNSELING NOTE: LOCAL TITLE: SOCIAL WORK GROUP NOTE STANDARD TITLE: SOCIAL WORK GROUP COUNSELING NOTE DATE OF NOTE: MARCH 08, 2025@14:00 ENTRY DATE: MARCH 08, 2025@16:31:44 AUTHOR: MANDY FLORES COSIGNER: URGENCY: STATUS: COMPLETED [...] [ ] managing PTSD symptoms [ ] [place] specific resources [ ] anger management [ x ] aging related issues including memory/cognitive decline. [ x ] group dynamics, cohesion, and process related issues. Members provided one another with support and feedback. Next group will be 04/05/2025 reported he started up his walking again, and shared the importance of keeping active and strong as he ages. /gio/ ANSHU CHAVEZ CLINICAL NUTRITION SERVICES AIDE Signed: 03/08/2025 16:38 MANDY FLORES [facility]
--- OUTSIDE RECORDS SUMMARY | 2025-03-15 14:22 | XMS_ITS | Patient Health Record ---
Author Organization [facility] Address [address] [place] [address] Care Team Providers Care Airborne Operations Manager Name Role Phone Wenceslao MALHOTRA, Kleber Primary Care Provider Michael Daily [phone] Allergies Allergen (clinical drug ingredient) Drug/Non Drug [...] Problem Status W/U Status Risk Notes Problem [id number] Encounter for screening for malignant neoplasm of colon (Z12.11) Active confirmed Problem [id number] Elevated liver function tests (R79.89) Active confirmed Problem [id number] Preprocedural examination (Z01.818) Active confirmed Problem [id number] Alcohol-induced acute pancreatitis, 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) Active confirmed Plan Of Treatment Pending Test Test Name Order Date LIVER PROFILE 02/28/2023 US ABD 02/28/2023 Future Test Test Name Order Date COLONOSCOPY 11/10/2020 Insurance Providers Payer Name Payer Address Payer Phone Subscriber Number Group Number Insured Name Patient Relationship to Insured Coverage Start Date Coverage End Date [facility] [address] [address] [place] [address] [id number] [employer] Self - patient is the insured Medical (General) History Medical History History ICD Code Denies [place],DM,CVA,Lung disease,renal dise ase HTN Hyperlipidemia Neg. screening colonoscopy in 08/2010 an d in 10/2020 Pancreatitis in 2018 due to EtOH Diverticulosis Aseptic necrosis R/hip Surgical History Surgery Date(Month/Year) Right hip replacement 08/2005 Tonsillectomy
--- OUTSIDE RECORDS SUMMARY | 2025-03-15 14:22 | XMS_ITS | Encounter Summary ---
Author Name [facility] [place] Address [address] [place] [id number] Care Team Providers Care Knotting Machine Operator Name Role Phone YANETH JOE [...] 's Name Patient's Relationship to Policy [facility] ([place]) MEDICARE ADVANTAGE [facility]) Oct 28, 2019 [id number] TUTU,JE JONAS PATIENT Selected Encounter This [...] disorder, unspecified MARK,[facility]QUELIN E [facility] Plan of [...] AMBULATORY - NONE [facility] [place] [facility] Jan 04, 2025 02:00 PM AMBULATORY - PSYCHIATRY [facility] [place] [facility] Jan 11, 2025 02:00 PM AMBULATORY - PSYCHIATRY [facility] [place] [facility] Jan 12, 2025 07:30 AM AMBULATORY - NONE [facility] [place] [facility] Jan 18, 2025 02:00 PM AMBULATORY - PSYCHIATRY [facility] [place] [facility] Feb 01, 2025 02:00 PM AMBULATORY - PSYCHIATRY [facility] [place] [facility] Feb 08, 2025 02:00 PM AMBULATORY - PSYCHIATRY [facility] [place] [facility] Feb 15, 2025 02:00 PM AMBULATORY - PSYCHIATRY [facility] [place] [facility] Feb 22, 2025 02:00 PM AMBULATORY - PSYCHIATRY [facility] [place] [facility] March 08, 2025 02:00 PM AMBULATORY - PSYCHIATRY [place] [facility] [place] [facility] March 09, 2025 08:30 AM AMBULATORY - MEDICINE [place] [facility] [place] [facility] Apr 05, 2025 02:00 PM AMBULATORY - PSYCHIATRY [place] [facility] [place] [facility] Social History: Smoking Status (Most [...] VA-TOBACCO FORMER USER [place] [facility] [place] [facility] YRS OR MORE [place] [facility] [place] [facility] Oct 14, 2018 02:56 PM VA-TOBACCO FORMER USER [facility] [place] [facility] Oct 14, 2018 02:56 PM VA-TOBACCO QUIT 15 YRS OR MORE [facility] Dec 12, 2017 09:20 AM QUIT TOBACCO USE > 7 YEARS AGO quit > 30 yrs ( 2-3 pks a day) [facility] Advance Directives: All historical and current [...] Feb 09, 2019 ADVANCE DIRECTIVE VAN MORENO [facility] Feb 08, 2019 ADVANCE DIRECTIVE SAMM BRINK V [facility] Encounter Notes: All associated encounter notes This section contains the clinical notes associated to the Encounter. Date/Time Encounter Note(s) Provider Source Oct 19, 2024 02:00 PM SOCIAL WORK GROUP COUNSELING NOTE: LOCAL TITLE: SOCIAL WORK GROUP NOTE STANDARD TITLE: SOCIAL WORK GROUP COUNSELING NOTE DATE OF NOTE: OCT 19, 2024@14:00 ENTRY DATE: OCT 19, 2024@16:10:57 AUTHOR: MANDY FLORES COSIGNER: URGENCY: STATUS: COMPLETED [...] ] managing PTSD symptoms [ x ] [place] specific resources [ ] anger management [ x ] aging related issues including memory/cognitive decline. Members provided one another with support and feedback. Next group will be 10/26/2024 talked about his sister's dementia and his experience of her decline. He shared the stressors of it and how he cares for her. /gio/ MANDY FLORES [facility] CLINICAL LINE PALLETIZER Signed: 10/19/2024 16:16 MANDY FLORES [facility]
--- OUTSIDE RECORDS SUMMARY | 2025-03-15 14:22 | XMS_ITS | Encounter Summary ---
Author Name [place] Organization [place] Address [address] [place] [address] Care Team Providers Care Email Administrator Name Role Phone YANETH JOE Primary [...] Policy 's Name Patient's Relationship to Policy [facility] (WNR) MEDICARE ADVANTAGE [facility] ([facility]) Oct 28, 2019 [id number] TUTU,JE JONAS PATIENT Selected Encounter This section includes the information on record at [place] for the Encounter. Date/Time Encounter Type Encounter Description Reason Provider Source Feb 22, 2025 02:00 PM GROUP PSYCHOTHERAPY [facility] ICD-10-CM F43.10 Post-traumatic stress disorder, unspecified MARK,ZEUS IE IHE Encounter Template Text not used by [place] Assessments - Encounter Diagnoses This section includes the primary and secondary diagnoses documented for the Encounter. Date/Time Primary/Secondary Diagnosis Diagnosis Name Provider Source Feb 22, 2025 04:19 PM PRIMARY Post-traumatic stress disorder, unspecified MARK,JAQUELIN E [facility] Plan of Treatment: Future Appointments (+ 6 months) and Future Tests (+/- 45 days) The Plan of Treatment section includes future care activities for the patient from all [place] treatmentfacilities. This section includes future appointments and future orders which are active, pending or scheduled. Future Appointments This section includes appointments that were scheduled to occur 6 months from the date of the Encounter, up to a maximum of 20 appointments. The data comes from all [place] treatment facilities. Appointment Date/Time Appointment Type Appointme nt Facility Name March 08, 2025 02:00 PM AMBULATORY - PSYCHIATRY [place] [facility] [place] [facility] March 09, 2025 08:30 AM AMBULATORY - MEDICINE [place] [facility] [place] [facility] Apr 05, 2025 02:00 PM AMBULATORY - PSYCHIATRY [place] [facility] [place] [facility] Apr 12, 2025 02:00 PM AMBULATORY - PSYCHIATRY [place] [facility] [place] [facility] Apr 19, 2025 02:00 PM AMBULATORY - PSYCHIATRY [place] [facility] [place] [facility] Apr 26, 2025 02:00 PM AMBULATORY - PSYCHIATRY [place] [facility] [place] [facility] Jul 15, 2025 07:30 AM [facility] - NONE [facility] Lab Results: +/- 30 days of [...] Type Comment March 04, 2025 07:39 AM [facility] PSA SERUM Specimen Type: SERUM No comment entered. Ordering Provider: YANETH JOE Report Released Date/Time: Sep 08, 2024 08:18 AM Reporting Lab: [facility] [address] [facility] [address] Performing Lab: [facility] [address] [address] PSA 5.2 ng/mL H 0.0-4.0 March 04, 2025 07:39 AM [facility] LIPID PANEL FASTING SERUM Specimen Type: SERU M No comment entered. Ordering Provider: YANETH JOE Report Released Date/Time: Sep 08, 2024 08:18 AM Reporting Lab: [facility] [address] [facility] [address] Performing Lab: [address] [address] CHOLESTEROL 210 mg/dL H TRIGLYCERIDE 57 mg/dL 0-150 LDL calculated 124 mg/dL 0-129 CHOL/HDL 2.8 HDL CHOLESTEROL 75 mg/dL >40 March 04, 2025 07:39 AM [facility] BASIC METABOLIC PANEL (fasting) SERUM Specime n Type: SERUM No comment entered. Ordering Provider: YANETH JOE Report Released Date/Time: Sep 08, 2024 08:18 AM Reporting Lab: [facility] [address] [facility] [address] Performing Lab: [address] [address] UREA NITROGEN 19 mg/dL 8-26 GLUCOSE 87 [...] took place. Date/Time Current Smoking Status Comment [facility] March 09, 2024 09:00 AM [place]-TOBACCO FORMER USER [facility] Tobacco Use History This section includes a history of the smoking, or tobacco-related health factors, that were collected on or before the date of the Encounter. The data comes from the [place] facility where the Encounter took place. Date/Time Smoking Status/Tobac co Use Comment Facility March 09, 2024 09:00 AM VA-TOBACCO QUIT 15 YRS OR MORE [facility] [place] [facility] March 18, 2023 02:30 PM VA-TOBACCO FORMER USER [facility] [place] [facility] March 18, 2023 02:30 PM VA-TOBACCO QUIT 15 YRS OR MORE [facility] [place] [facility] Jan 11, 2022 08:30 AM VA-TOBACCO FORMER USER [facility] [place] [facility] Jan 11, 2022 08:30 AM VA-TOBACCO QUIT 15 YRS OR MORE [facility] [place] [facility] Dec 26, 2020 09:00 AM VA-TOBACCO FORMER USER [facility] [place] [facility] Dec 26, 2020 09:00 AM VA-TOBACCO QUIT 15 YRS OR MORE [facility] [place] [facility] Dec 08, 2019 09:16 AM VA-TOBACCO FORMER USER [place] [facility] [place] [facility] Dec 08, 2019 09:16 AM VA-TOBACCO QUIT 15 YRS OR MORE [place] [facility] [place] [facility] Oct 14, 2018 02:56 PM VA-TOBACCO FORMER USER [place] [facility] [place] [facility] Oct 14, 2018 02:56 PM VA-TOBACCO QUIT 15 YRS OR MORE [facility] [place] [facility] Dec 12, 2017 09:20 AM QUIT TOBACCO USE > 7 YEARS AGO quit > 30 yrs ( 2-3 pks a day) [place] [facility] [place] [facility] Advance Directives: All historical and current Section Date Range: From patient's date of to the date document was created. This section includes ALL of a patient's completed or amended [place] Advance and Rescinded Directives. The entries below indicate that a directive exists for the patient, but an actual copy is not included with this document. The data comes from all [place] facilities. Date Advance Directives Provider Source Feb 09, 2019 ADVANCE DIRECTIVE VAN MORENO [place] [facility] [place] [facility] Feb 08, 2019 ADVANCE DIRECTIVE SAMM BRINK [facility] Encounter Notes: All associated encounter notes This section contains the clinical notes associated to the Encounter. Date/Time Encounter Note(s) Provider Source Feb 22, 2025 02:00 PM SOCIAL WORK GROUP COUNSELING NOTE: LOCAL TITLE: SOCIAL WORK GROUP NOTE STANDARD TITLE: SOCIAL WORK GROUP COUNSELING NOTE DATE OF NOTE: FEB 22, 2025@14:00 ENTRY DATE: FEB 22, 2025@16:11:49 AUTHOR: MANDY FLORES COSIGNER: URGENCY: STATUS: COMPLETED [...] friends, and/or other veterans. [ ] substance use/addictions, including coping skills to maintain sobriety or address recent use [ ] managing PTSD symptoms [ ] [place] specific resources [ ] anger management [ x ] aging related issues including memory/cognitive decline. [ ] group dynamics, cohesion, and process related issues. Members provided one another with support and feedback. Next group will be 03/08/25 reported he still has not resumed his daily walks. Another encouraged him to start before the next time the group meets and he said he would do that. /gio/ MANDY FLORES [facility] CLINICAL SEPTIC TANK SETTER Signed: 02/22/2025 16:21 MANDY FLORES [place] [facility]
--- OUTSIDE RECORDS SUMMARY | 2025-03-15 14:22 | XMS_ITS ---
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 Name Role Phone YANETH JOE Primary Care [...] Relationship to Policy [facility] ([facility]) MEDICARE ADVANTAGE [facility] ([facility]) Oct 28, 2019 [id number] TUTU,JE JONAS PATIENT Selected Encounter This [...] Post-traumatic stress disorder, unspecified [facility] Plan of Treatment: Future Appointments (+ 6 months) and Future Tests (+/- 45 days) The Plan of Treatment section includes future care activities for the patient [facility]. This section includes future appointments and future [...] AMBULATORY [facility] Sep 08, 2024 08:00 AM AM[facility]ULAT[facility]INE [facility] Sep 08, 2024 09:00 AM [facility] Sep 14, 2024 02:00 PM AMBUL[facility] Sep 21, 2024 02:00 PM [facility] Oct 05, 2024 02:00 PM AMBUL[facility] Oct 12, 2024 02:00 PM AMBUL[facility] Oct 19, 2024 02:00 PM AMBUL[facility] Oct 27, 2024 11:45 AM AMBULAT[facility] Nov 02, 2024 02:00 PM AMBULAT[facility] Nov 23, 2024 02:00 PM AMBULAT[facility] Nov 26, 2024 11:45 AM [facility] [place] Nov 30, 2024 02:00 PM AMBULATORY [facility] PS[facility] Dec 07, 2024 02:00 PM AMBULATORY [facility] Dec 21, 2024 02:00 PM AMBULAT[facility] Dec 28, 2024 02:00 PM AMBULATORY [facility] PS[facility] Dec 29, 2024 08:30 AM AMBULATORY - NONE [facility] Jan 04, 2025 02:00 PM AMBULATORY - PSYCHIATRY [facility] Jan 11, 2025 02:00 PM AMBULATORY - PSYCHIATRY [facility] Jan 12, 2025 07:30 AM AMBULATORY - NONE [facility] Lab Results: +/- 30 days of the encounter This section includes the Chemistry and Hematology Lab Results on record with [place] for the patient. Radiology Reports and Pathology Reports are provided separately, in subsequent sections. Lab Results This section contains the Chemistry/Hematology Results that were resulted 30 days before or 30 daysafter the date of the Encounter. Date/Time Source Result Type Result - Unit Interpretation Reference Range Specimen Type Comment Aug 31, 2024 01:30 PM [facility] PSA SERUM Specimen Type: SERUM No comment entered. Ordering Provider: YANETH JOE Report Released Date/Time: March 09, 2024 09:50 AM Reporting Lab: [address] [address] Performing Lab: [address] [address] PSA 8.81 ng/mL H 0.00-4.00 Aug 31, 2024 01:30 PM [facility] BASIC METABOLIC PANEL (non-fasting) SERUM Spe cimen Type: SERUM No comment entered. Ordering Provider: YANETH JOE Report Released Date/Time: March 09, 2024 09:50 AM Reporting Lab: [address] [address] Performing Lab: [address] [address] UREA NITROGEN 16 mg/dL 7-25 GLUCOSE 106 [...] VA-TOBACCO FORMER USER [place] [facility] [place] Tobacco Use History This section includes a history of the smoking, or tobacco-related health factors, that were collected on or before the date of the Encounter. The data comes from the [place] facility where the Encounter took place. Date/Time Smoking Status/Tobac co Use Comment Facility March 09, 2024 09:00 AM VA-TOBACCO QUIT 15 YRS OR MORE [facility] March 18, 2023 02:30 PM VA-TOBACCO FORMER USER [facility] March 18, 2023 02:30 PM VA-TOBACCO QUIT 15 YRS OR MORE [facility] Jan 11, 2022 08:30 AM VA-TOBACCO FORMER USER [facility] Jan 11, 2022 08:30 AM VA-TOBACCO QUIT 15 YRS OR MORE [facility] Dec 26, 2020 09:00 AM VA-TOBACCO FORMER USER [facility] Dec 26, 2020 09:00 AM VA-TOBACCO QUIT 15 YRS OR MORE [facility] Dec 08, 2019 09:16 AM VA-TOBACCO FORMER USER [facility] Dec 08, 2019 09:16 AM VA-TOBACCO QUIT 15 YRS OR MORE [facility] Oct 14, 2018 02:56 PM VA-TOBACCO FORMER USER [facility] Oct 14, 2018 02:56 PM VA-TOBACCO QUIT 15 YRS OR MORE [facility] Dec 12, 2017 09:20 AM QUIT TOBACCO USE > 7 YEARS AGO quit > 30 yrs ( 2-3 pks a day) [facility] Advance Directives: All historical and current [...] Feb 09, 2019 ADVANCE DIRECTIVE VAN MORENO [facility] Feb 08, 2019 ADVANCE DIRECTIVE SAMM [facility]INK [facility] Encounter Notes: All associated encounter [...] hello to the group, which occurred with group president's facilitation. Veterans got to share they missed this and express their care for him. - alcohol use, including one member's success in exposure to it but not drinking. Members provided one another support and feedback. Next group will be 08/31/2024 [place] reported he was doing well. He shared an update about his sister who has dementia. /gio/ MANDY FLORES [facility] CLINICAL PHYSIOLOGIST Signed: 08/24/2024 16:02 MANDY FLORES [facility]
--- OUTSIDE RECORDS SUMMARY | 2025-03-15 14:22 | XMS_ITS ---
[facility] Address [address] [place] [address] Care Team Providers Care Optical Instruments Supervisor Name Role Phone Edwin Bradley Primary Care Provider Unavailab Osman Jeong Unavailable [phone] Allergies Allergen (clinical drug ingredient) Drug/Non Drug [...] Duration) Notes Start Date End Date Status Rosuvastatin Calcium 20 MG 1 tablet Orally Once a day for 30 day(s) Active Jessica Allergy 180 MG 1 tablet Orally O nce a day Active Benazepril HCl 20 MG Orally Active Ammonium Lactate 12 % APPLY TOPICALLY TO THE FEET TWICE DAILY for 30 Active Simvastatin 40 MG Orally No t-Taking Social History Tobacco Use: Social History Observation [...] ast year? No Points 0 Interpretation Negative Vital Signs Height 6ft 2in in 02/02/2025 Weight 186 lbs 02/02/2025 BMI 23.88 kg/m2 02/02/2025 Blood pressure systolic 120 mm Hg 02/03/20 25 Blood pressure diastolic 70 mm Hg 025 Procedures Procedure Date Ordered Date Performed Result Body Sit e 63549-HHWQXUM NAIL, 6 OR MORE 02/02/2025 N/A 43709-EOBH SKIN LESIONS, OVER 4 02/02/2025 N/A Encounters Encounter Location Date Provider Diagnosis [facility] [place] [address] [place] [address] 02/02/2025 Osman Jayashree Atherosclerosis of [place] artery of both lower extremities, with unspecified presence of clinical manifestation I70.203 ; Tinea unguium B35.1 ; Pain in right toe(s) M79.674 and Pain in left toe(s) M79.675 Assessments Encounter Date Diagnosis (ICD Code) Assessment Notes Treatment Notes Treatment Clinical Notes Section Notes 02/02/2025 Atherosclerosis of [place] artery of both lower extremities, with unspecified presence of clinical manifestation (ICD-10 - I70.203) 02/02/2025 Tinea unguium (ICD-10 - B35.1) 02/02/2025 Pain in right toe(s) (ICD-10 - M79.674) 02/02/2025 Pain in left toe(s) (ICD-10 - M79.675) Plan Of Treatment Pending Test Test Name Order Date [id number] NAIL, 6 OR MORE 02/02/2025 64846-ZKXF SKIN LESIONS, OVER 4 02/03/20 25 Next Appt Details Follow Up: prn, Reason: Provider Name:Osman Blanc , 05/04/2025 10:00:00 AM, [address] [place] [address], [phone], Procedure Notes * Category Sub-Category Detail Notes [...] T1, T2, T4, T5, T6, T7, T9 ), was performed exclusively by the physician of record to reduce/remove overall nail length, girth, thickness, subungual debris, and necrotic tissue, by manual and/or electrical means through the use of a nail nipper and/or dremel-type universal grinder set up operator, to a more viable healthy nail [...] to maintain effectiveness in symptomatic relief - 75037 Keratoma Treatment Parring or Cutting o f [...] 5th MTBase, Left , Plantar, Heel(s), B/L ), were pared, and/or cut utilizing a sterile 15 blade, tissue nippers, and/or power dremel instrumentation by the physician of record - 09088, Q8 Progress Notes * TUTULynette JrDOB:[birth year] (74 yo M)Acc No.[id number]:02/02/2025 Progress Note Patient:?Hillary SANCHEZkerry Peter Provider:?Osman Blanc DPM :1950???Age:74 Y???Sex:Male Praveen e:02/02/2025 [address] [id number] Pcp:Edwin Bradley Subjective: * Chief Complaints: * ???At Risk FootcarePainful N ail(s) aggrevated by shoes and causing difficulty standing/walking. * HPI: ???At Risk footcare:?Pt States Last PCP Visit:?Date?12/29/2024 * ROS:?General/Constitutional:?Nausea?denies.?Vomiting?denies.?Hunger Thirst?denies.?Loss appetite?denies.?Chills?denies.?Fatigue?denies.?Fever?denies.?Night Sweats?denies.?Unexplained weight loss?denies.?Unexplained [...] hip surgery 07/2015 * Hospitalization/Major Diagno stic Procedure:?[facility]- Unknown Headache Migraine for 5 days same day took off med simvastatin 12/25/22 * Family History:?Mother: unkn own.?Father: , diagnosed with Other malignant neoplasm of unspecified site, Diabetic - NIDDM, Unspecified essential hypertension.? * Social History:?Tobacco Use:?Tobacco use other than smoking?Are you an other tobacco user??No ?Tobacco Control (Standard)?Tobacco use:?Nonsmoker ???Drugs/Alcohol:?Drugs?Have you used drugs other than those for medical reasons in the past 12 months??No ???Miscellaneous:?Caffeine: yes, frequency:, 3- 4 cups per day. ?Children: yes, 2. ?Exercise: no. ?Marital status: . 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 ???Drug/Alcohol:?AUDIT-C (Standard)?Did you have a drink containing alcohol in the past year??No ?Points?0 ?Interpretation?Negative * Medications:?TakingRosuvasta tin Calcium 20 MG Tablet [...] Verified] Objective: * Vitals:?Ht: 6ft 2in, Wt:186, BMI: 23.88, Shoe size:12, BP:120/70mm Hg, Ht-cm: 187.96 cm, Wt-k.37 kg. * Examination: ???Vascular: ?DP PULSES (B):?1/4, B/L.?PT [...] Assessment: 1.?Tinea unguium - B35.1???2 .?Atherosclerosis of [place] artery of both lower extremities, with unspecified presence of clinical manifestation - I70.203 (Primary)???3.?Pain in right toe(s) - M79.674???4.?Pain in left toe(s) - M79.675??? Plan: * Treatment: 2.?Tinea unguium?Procedure: 31232-VKCYKHP NAIL, 6 OR MORE * Procedures:?Debride Nail 6-10:?Nail debridement?Due to the clinical pathology outlined in the exam findings, performance of this nail treatment is medically necessary as its management by an unskilled/untrained nonprofessional would put this patients foot and overall health at risk. Therefore, debridement to affected nail(s), as described in exam (?TA,?T1,?T2,?T4,?T5,?T6,?T7,?T9?), was performed exclusively by the physician of record to reduce/remove overall nail length, girth, thickness, subungual debris, and necrotic tissue, by manual and/or electrical means through the use of a nail nipper and/or dremel-type universal grinder set up operator, to a more viable healthy nail [...] to maintain effectiveness in symptomatic relief - 33033.?Keratoma Treatment:?Parring or Cutting of Benign Hyperkeratotic Lesion(s)?(-57) [...] (?Dorsal,?DIPJ,?T4,?SUB MTH (s),?1,?B/L?,?SUB MTH (s),?5, B/L?,?SUB 5th MTBase,?Left?,?Plantar,?Heel(s),?B/L?), were pared, and/or cut utilizing a sterile 15 blade, tissue nippers, and/or power dremel instrumentation by the physician of record - 14947, Q8.? * Procedure Codes:?42859 DEBRI DE NAIL, 6 OR MORE, Modifiers: XS 07889 TRIM SKIN LESIONS, OVER 4, Modifiers: XS , Q8 * Follow Up:?prn * Images: * Sign off status: Completed true * Provider:?Osman Blanc DPM Date:?2024 Generated for Ally gomez/Leann/Maryjane on:?03/15/2025 02:22 PM EDT History and Physical Notes * HPI (History of Present Illness) Category Sub-Category Detail Notes Category Not es At Risk footcare Pt States Last PCP Visit: Date: 5 Examination Category Sub-Category Detail Notes Category Not [...]
--- OUTSIDE RECORDS SUMMARY | 2025-03-15 14:23 | XMS_ITS | Encounter Summary ---
Author Name [facility] [place] Organization [place] Address [address] [place] [address] Care Team Providers Care Utilization Review Rn Name Role Phone YANETH JOE Primary Care [...] Patient's Relationship to Policy [facility] ([facility]) MEDICARE ADVANTAGE [facility] ([facility]) Oct 28, 2019 [id number] IVANA CAM PATIENT Selected Encounter This section includes the information on record at [place] for the Encounter. Date/Time Encounter Type Encounter Description Reason Provider Source March 09, 2025 08:30 AM OFFICE O/P EST MOD 30 MIN PRIMARY CARE/MEDICINE ICD-10-CM I77.810 Thoracic aortic ectasia YANETH JOE Ayah Encounter Template Text not used by [place] Assessments - Encounter Diagnoses This section includes the primary and secondary diagnoses documented for the Encounter. Date/Time Primary/Secondary Diagnosis Diagnosis Name Provider Source March 09, 2025 09:09 AM PRIMARY Thoracic aortic ectasia YANETH JOE [facility] [place] [facility] March 09, 2025 09:09 AM SECONDARY Alcohol dependence, in remission FURCOKARTHIKEYAN SIMMONSA [facility] [place] [facility] March 09, 2025 09:09 AM SECONDARY Allergy to seafood FURCOLOKARTHIKEYANA [facility] [place] [facility] March 09, 2025 09:09 AM SECONDARY Aortic ectasia, unspecified site FURCOLOYANETH [facility] [place] [facility] March 09, 2025 09:09 AM SECONDARY Contact with and exposure to other hazardous substances FURCOLO,YANETH [facility] [place] [facility] March 09, 2025 09:09 AM SECONDARY Elevated prostate specific antigen [PSA] FURCOLO,YANETH [facility] [place] [facility] March 09, 2025 09:09 AM SECONDARY Emphysema, unspecified FURCOLO,YANETH [facility] [place] [facility] March 09, 2025 09:09 AM SECONDARY Encounter for immunization TAE WOODS [facility] [place] [facility] March 09, 2025 09:09 AM SECONDARY Essential (primary) hypertension FURCOLO,YANETH [facility] [place] [facility] March 09, 2025 09:09 AM SECONDARY Hyperlipidemia, unspecified FURCOLO,YANETH [facility] [place] [facility] March 09, 2025 09:09 AM SECONDARY Post-traumatic stress disorder, chronic FURCOLO,YANETH [facility] [place] [facility] March 09, 2025 09:09 AM SECONDARY Sensorineural hearing loss, bilateral FURCOLO,YANETH [...] Appointment Type Appointme nt Facility Name Apr 05, 2025 02:00 PM AMBULATORY - PSYCHIATRY [facility] [place] [facility] Apr 12, 2025 02:00 PM AMBULATORY - PSYCHIATRY [facility] [place] [facility] Apr 19, 2025 02:00 PM AMBULATORY - PSYCHIATRY [facility] [place] [facility] Apr 26, 2025 02:00 PM AMBULATORY - PSYCHIATRY [facility] [place] [facility] Jul 15, 2025 07:30 AM AMBULATORY - NONE [facility] [place] [facility] Sep 09, 2025 08:00 AM [facility] Lab Results: +/- 30 days of the encounter This section includes the Chemistry and Hematology Lab Results on record with [place] for the patient. Radiology Reports and Pathology Reports are provided separately, in subsequent sections. Lab Results This section contains the Chemistry/Hematology Results that were resulted 30 days before or 30 daysafter the date of the Encounter. Date/Time Source Result Type Result - Unit Interpretation Reference Range Specimen Type Comment March 04, 2025 07:39 AM [facility] PSA SERUM Specimen Type: SERUM No comment entered. Ordering Provider: YANETH JOE Report Released Date/Time: Sep 08, 2024 08:18 AM Reporting Lab: [facility] [address] [phone] Performing Lab: [facility] [address] [address] PSA 5.2 ng/mL H 0.0-4.0 March 04, 2025 07:39 AM [facility] LIPID PANEL FASTING SERUM Specimen Type: SERU M No comment entered. Ordering Provider: YANETH JOE Report Released Date/Time: Sep 08, 2024 08:18 AM Reporting Lab: [facility] [address] [phone] Performing Lab: [facility] [address] [address] CHOLESTEROL 210 mg/dL H TRIGLYCERIDE 57 mg/dL 0-150 LDL calculated 124 mg/dL 0-129 CHOL/HDL 2.8 HDL CHOLESTEROL 75 mg/dL >40 March 04, 2025 07:39 AM [facility] BASIC METABOLIC PANEL (fasting) SERUM Specime n Type: SERUM No comment entered. Ordering Provider: YANETH JOE Report Released Date/Time: Sep 08, 2024 08:18 AM Reporting Lab: [facility] [address] [address] Performing Lab: [facility] [address] [address] UREA NITROGEN 19 mg/dL 8-26 GLUCOSE 87 mg/dL 65-100 SODIUM 143 mmol/L 136-145 POTASSIUM 5.0 mmol/L 3.5-5.1 CHLORIDE 106 mmol/L 98-107 CO2 27 meq/L 23-31 CALCIUM 9.8 mg/dL 8.8-10 CREATININE, Serum 1.06 mg/dL 0.72-1.25 eGFR(CKD-EPI 2020) 72 mL/min >60 Vital Signs: All taken on the encounter date This section contains inpatient and outpatient Vital Signs collected on the date of the Encounter. Date/Time Temperature Pulse Blood Pressure Respiratory Rate SP02 Pain Height Weight Body Mass Index Source March 09, 2025 08:34 AM 97.5 73 125/75 16 99 0 190 24 [facility] Immunizations: All administered on the encounter date This section contains immunizations associated to the Encounter. Immunization Series Date Issued Administered By Site Reaction Lot Number CVX Code Drug Hostel Manager Comment(s) Source RSV, RECOMBINANT, PROTEIN SUBUNIT RSVPREF3, ADJUVANT RECONSTITUTED , 0.5 ML, PF March 09, 2025 TAE WOODS RIGHT DELTO ID [id number] [facility] CHELSEY Completed Series, ADMINISTERE D AT [place], [facility] Social History: Smoking Status (Most current) [...] Smoking Status Comment Tristan ponce March 09, 2025 08:30 AM MT-TOBACCO USE FOR ABRIL CIGARETTES [facility] Tobacco Use History This section includes a history of the smoking, or tobacco-related health factors, that were collected on or before the date of the Encounter. The data comes from the [place] facility where the Encounter took place. Date/Time Smoking Status/Tobac co Use Comment Facility March 09, 2025 08:30 AM VA-TOBACCO USE FORMER CIGARETTES [facility] [place] [facility] March 09, 2024 09:00 AM VA-TOBACCO FORMER USER [facility] [place] [facility] March 09, 2024 09:00 AM VA-TOBACCO QUIT 15 YRS OR MORE [facility] [place] [facility] March 18, 2023 02:30 PM VA-TOBACCO FORMER USER [facility] [place] [facility] March 18, 2023 02:30 PM VA-TOBACCO QUIT 15 YRS OR MORE [facility] [place] [facility] Jan 11, 2022 08:30 AM VA-TOBACCO FORMER USER [facility] [place] [facility] Jan 11, 2022 08:30 AM VA-TOBACCO QUIT 15 YRS OR MORE [facility] [place] [facility] Dec 26, 2020 09:00 AM VA-TOBACCO FORMER USER [facility] [place] [facility] Dec 26, 2020 09:00 AM VA-TOBACCO QUIT 15 YRS OR MORE [facility] [place] [facility] Dec 08, 2019 09:16 AM VA-TOBACCO FORMER USER [facility] [place] [facility] Dec 08, 2019 09:16 AM VA-TOBACCO QUIT 15 YRS OR MORE [facility] [place] [facility] Oct 14, 2018 02:56 PM VA-TOBACCO FORMER USER [facility] [place] [facility] Oct 14, 2018 02:56 PM VA-TOBACCO QUIT 15 YRS OR MORE [facility] [place] [facility] Dec 12, 2017 09:20 AM QUIT TOBACCO USE > 7 YEARS AGO quit > 30 yrs ( 2-3 pks a day) [place] [facility] [place] [facility] Advance Directives: [...] Feb 09, 2019 ADVANCE DIRECTIVE VAN MORENO [facility] Feb 08, 2019 ADVANCE DIRECTIVE SAMM BRINK [facility] Encounter Notes: All associated encounter notes This section contains the clinical notes associated to the Encounter. Date/Time Encounter Note(s) Provider Source March 09, 2025 08:46 AM PHYSICIAN NOTE: LOCAL TITLE: MD NOTE STANDARD TITLE: PHYSICIAN NOTE DATE OF NOTE: MARCH 09, 2025@08:46 ENTRY DATE: MARCH 09, 2025@08:46:22 AUTHOR: YANETH JOE COSIGNER: URGENCY: STATUS: COMPLETED HIGINIO CAM JR is a 74 year old BLACK OR MALE who is being seen today in primary care for routine follow up. === CARE TEAM === Community Primary Care Provider: Dr. Yarbrough (retired , but in the same practice) [place] Specialists: Community Specialists: urology - Dr. 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 +AO === HISTORY OF PRESENT ILLNESS === Patient presents today for routine f/u. === RELEVANT PAST MEDICAL HISTORY === Active problems - Computerized Problem List is the source for the followin. Ascending aorta dilatation 4.1cm on CT 12/2024 2. Prostate Specific Antigen Above Reference Range (SCT [id number]) 8.8, referred back to Dr. Matthias Gray, +family h/o prostate ca- father, +AO exposure 3. Exposure to potentially hazardous substance (SCT [id number]) Entered automatically through JULIET Problem List documentation program 4. 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 Bilateral hearing loss 6. Emphysema of lung On chest CT 07/2022 7. Hyperlipidemia 8. Chronic alcoholism in remission reviewed reviewed reviewed reviewed reviewed reiviewed 9. Chronic post-traumatic stress disorder - i will take over RX for prazosin 10. Anaphylactic reaction 11. 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 previous problem drinker Tobacco Use: quit in 1990, smoked for 30 years- 3-4 packs Drug Use: none Exercise: walks daily 2 miles === ALLERGIES === SHELLFISH, [...] - - - - - - B/P: 125/75 (03/09/2025 08:34) pulse: 73 (03/09/2025 08:34) resp: 16 (03/09/2025 08:34) temp: 97.5 F [36.4 C] (03/09/2025 08:34) Ht: 74 in [188.0 cm] (09/08/2024 07:59) Wgt: 190 lb [86.18 kg] (03/09/2025 08:34) BMI: BMI: 24.4 Exam: - - - - - - [...] Specimen Test Name Result Units Ref Range 03/04/2025 07:39 SERUM PSA 5.2 H ng/mL 0.0 - 4.0 03/04/2025 07:39 SERUM CALCIUM 9.8 mg/dL 8.8 - 10 CREATININE, Serum 1.06 mg/dL 0.72 - 1.25 eGFR(CKD-EPI 2020 72 mL/min Ref: >=60 SODIUM 143 mmol/L 136 - 145 POTASSIUM 5.0 mmol/L 3.5 - 5.1 CHLORIDE 106 mmol/L 98 - 107 CO2 27 mEq/L 23 - 31 UREA NITROGEN 19 mg/dL 8 - 26 GLUCOSE 87 mg/dL 65 - 100 CHOLESTEROL 210 H mg/dL <7 - 199 TRIGLYCERIDE 57 mg/dL 0 - 150 LDL calculated 124 mg/dL 0 - 129 CHOL/HDL 2.8 HDL CHOLESTEROL 75 mg/dL Ref: >=40 SERUM Nov Feb 06 Reference 2023 2018 13:30 09:30 Units Ranges PSA 8.81 H 2.50 ng/mL 0 - 4 === ASSESSMENT AND PLAN === Active problems - Computerized Problem List is the source for the followin. Ascending aorta dilatation 4.1cm on CT 12/2024 2. Prostate Specific Antigen Above Reference Range (SCT [id number]) 8.8, referred back to Dr. Matthias Gray, +family h/o prostate ca- father, +AO exposure 3. Exposure to potentially hazardous substance (SCT [id number]) Entered automatically through JULIET Problem List documentation program 4. 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 Bilateral hearing loss 6. Emphysema of lung On chest CT 07/2022 7. Hyperlipidemia- good control 8. Chronic alcoholism in remission- drinks on rare occasion now 9. Chronic post-traumatic stress disorder Reviewed reviewed reviewed reviewed reviewed reviewed reviewed 10. Anaphylactic reaction 11. Hypertension- good control. benzapril through outside pcp- who just retired. assigned new doc, may consider consolidating here at [place] === HEALTH MAINTENANCE === Colonoscopy - due 2024- outside primary care orders- [place] lung Ca screening 12/2023 Abdominal Aortic Aneurysm Screening- ascending ortha aneursysm 4.1, repeat yearly- next due 12/2025 Prostate screening - elevated 8.8 in 2023, [...] documentation. /gio/ YANETH JOE D.O. PHYSICIAN Signed: 03/09/2025 09:09 Y[facility] March 09, 2025 08:31 AM PREVENTIVE MEDICIN E NURSING NOTE: LOCAL TITLE: CLINICAL REMINDERS/NURSING STANDARD TITLE: PREVENTIVE MEDICINE NURSING NOTE DATE OF NOTE: MARCH 09, 2025@08:31 ENTRY DATE: MARCH 09, 2025@08:31:11 AUTHOR: TAE WOODS EXP COSIGNER: URGENCY: STATUS: COMPLETED Suicide Screen: C-SSRS Screening Wilkinson Suicide Severity Rating Scale (C-SSRS) screener 1. [...] required due to responses to other questions. Homelessness/Food Insecurity Screen: In the past 2 months, have you been living in stable housing that you own, rent, or stay in as part of a household? Yes - Living in stable housing. Are you worried or concerned that in the next 2 months you may NOT have stable housing that you own, rent, or stay in as part of a household? No - Not worried about housing near future The reports the following: Within the past 12 months, you worried whether your food would run out before you got money to buy more. Never true Within the past 12 months, the food you bought just didn't last and you didn't have money to get more. Never true Tobacco Use Screening: The patient is a former cigarette smoker. The patient has never used other types of tobacco. quit in 1990 Alcohol Use Screen (AUDIT-C): Alcohol Screen: SCREEN [...] one occasion in the past year? Never RSV Immunization: Respiratory Syncytial Virus (RSV) Vaccine: RSV vaccine administered today. Administered: RSV, RECOMBINANT, PROTEIN SUBUNIT RSVPREF3, ADJUVANT RECONSTITUTED, 0.5 ML, PF Date Administered: March 09, 2025 08:30 Series: Complete Hostel Manager: [employer] Lot: [id number] Exp Date: Aug 21, 2025 ND: [id number] Admin Route/Site: INTRAMUSCULAR/RIGHT DELTOID Dosage: 0.5mL Vaccine Information Statement(s): RSV (RESPIRATORY SYNCYTIAL VIRUS) VACCINE VIS Nov 27, 2024 (KHMER) Order By: Policy Administered By: Tae Woods Vaccine Information Sheet (VIS) was given to the patient/caregiver, education regarding adverse reactions was discussed, as well as barriers to learning, if any, were acknowledged. Advance Directive Screen MH AD: Patient has an Advance Directive on file at this [facility]. No updates are needed at this time. The patient received education about Advance Directives and written notification of his/her rights. /gio/ TAE WOODS LPN License Practical Nurse Signed: 03/09/2025 08:43 TAE WOODS [facility]
--- OUTSIDE RECORDS SUMMARY | 2025-03-15 14:23 | XMS_ITS | Encounter Summary ---
Author Name [facility] [place] Organization [place] Address [address] [place] [id number] Care Team Providers Care Ski Topper Name Role Phone YANETH JOE Primary Care [...] to Policy [facility] ([facility]) MEDICARE ADVANTAGE [facility] ([facility]) Oct 28, 2019 [id number] TUTU,JE JONAS PATIENT Selected Encounter This section includes the information on record at [place] for the Encounter. Date/Time Encounter Type Encounter Description Reason Provider Source Nov 30, 2024 02:00 PM [facility] ICD-10-CM F43.10 Post-traumatic stress disorder, unspecified MARK,ZEUS IE IHE Encounter Template Text not used by [place] Assessments - Encounter Diagnoses This section includes the primary and secondary diagnoses documented for the Encounter. Date/Time Primary/Secondary Diagnosis Diagnosis Name Provider Source Nov 30, 2024 03:49 PM PRIMARY Post-traumatic stress disorder, unspecified MARK,JAQUELIN E [facility] Plan of Treatment: Future Appointments (+ 6 months) and Future Tests (+/- 45 days) The Plan of Treatment section includes future care activities for the patient from all VA treatmentfacarteret health careities. This section includes future appointments and future orders which are active, pending or scheduled. Future Appointments This section includes appointments that were scheduled to occur 6 months from the date of the Encounter, up to a maximum of 20 appointments. The data comes from all [place] treatment facilities. Appointment Date/Time Appointment Type Appointme nt Facility Name Dec 07, 2024 02:00 PM AMBULATORY - PSYCHIATRY [facility] [place] [facility] Dec 21, 2024 02:00 PM AMBULATORY - PSYCHIATRY [facility] [place] [facility] Dec 28, 2024 02:00 PM AMBULATORY - PSYCHIATRY [facility] [place] [facility] Dec 29, 2024 08:30 AM AMBULATORY - NONE [facility] [place] [facility] Jan 04, 2025 02:00 PM AMBULATORY - PSYCHIATRY [facility] [place] [facility] Jan 11, 2025 02:00 PM AMBULATORY - PSYCHIATRY [facility] [place] [facility] Jan 12, 2025 07:30 AM AMBULATORY - NONE [facility] [place] [facility] Jan 18, 2025 02:00 PM AMBULATORY - PSYCHIATRY [facility] [place] [facility] Feb 01, 2025 02:00 PM AMBULATORY - PSYCHIATRY [facility] [place] [facility] Feb 08, 2025 02:00 PM AMBULATORY - PSYCHIATRY [facility] [place] [facility] Feb 15, 2025 02:00 PM AMBULATORY - PSYCHIATRY [facility] [place] [facility] Feb 22, 2025 02:00 PM AMBULATORY - PSYCHIATRY [facility] [place] [facility] March 08, 2025 02:00 PM AMBULATORY - PSYCHIATRY [facility] [place] [facility] March 09, 2025 08:30 AM AMBULATORY - MEDICINE VA C [facility] [place] [facility] Apr 05, 2025 02:00 PM AMBULATORY - PSYCHIATRY [facility] [place] [facility] Apr 12, 2025 02:00 PM AMBULATORY - PSYCHIATRY [facility] [place] [facility] Apr 19, 2025 02:00 PM AMBULATORY - PSYCHIATRY [facility] [place] [facility] Apr 26, 2025 02:00 PM AMBULATORY - PSYCHIATRY [place] [facility] [place] [facility] Social History: Smoking Status (Most current) and Tobacco Use (All prior to encounter date) This section includes the most current, and the historical, smoking and tobacco- related health factors from the [place] facility where the Encounter took place. Current Smoking Status This section includes the most current smoking, or tobacco-related health factor, from the [place] facility where the Encounter took place. Date/Time Current Smoking Status Comment Facil it March 09, 2024 09:00 AM VA-TOBACCO FORMER USER [place] [facility] [place] [facility] Tobacco Use History This section includes a history of the smoking, or tobacco-related health factors, that were collected on or before the date of the Encounter. The data comes from the [place] facility where the Encounter took place. Date/Time Smoking Status/Tobac co Use Comment Facility March 09, 2024 09:00 AM VA-TOBACCO QUIT 15 YRS OR MORE [facility] [place] [facility] March 18, 2023 02:30 PM VA-TOBACCO FORMER USER [facility] [place] [facility] March 18, 2023 02:30 PM VA-TOBACCO QUIT 15 YRS OR MORE [facility] [place] [facility] Jan 11, 2022 08:30 AM VA-TOBACCO FORMER USER [facility] [place] [facility] Jan 11, 2022 08:30 AM VA-TOBACCO QUIT 15 YRS OR MORE [facility] [place] [facility] Dec 26, 2020 09:00 AM VA-TOBACCO FORMER USER [facility] [place] [facility] Dec 26, 2020 09:00 AM VA-TOBACCO QUIT 15 YRS OR MORE [facility] [place] [facility] Dec 08, 2019 09:16 AM VA-TOBACCO FORMER USER [facility] [place] [facility] Dec 08, 2019 09:16 AM VA-TOBACCO QUIT 15 YRS OR MORE [facility] [place] [facility] Oct 14, 2018 02:56 PM VA-TOBACCO FORMER USER [facility] [place] [facility] Oct 14, 2018 02:56 PM VA-TOBACCO QUIT 15 YRS OR MORE [facility] [place] [facility] Dec 12, 2017 09:20 AM QUIT TOBACCO USE > 7 YEARS AGO quit > 30 yrs ( 2-3 pks a day) [facility] Advance Directives: All historical and current Section Date Range: From patient's date of to the date document was created. This section includes ALL of a patient's completed or amended [place] Advance and Rescinded Directives. The entries below indicate that a directive exists for the patient, but an actual copy is not included with this document. The data comes from all [place] facilities. Date Advance Directives Provider Source Feb 09, 2019 ADVANCE DIRECTIVE VAN MORENO [facility] Feb 08, 2019 ADVANCE DIRECTIVE KEENASAMM ZEV Sierra [facility] Radiology Reports: +/- 30 days [...] the Encounter. The data comes from all [place] treatment facilities. Date/Time Radiology Report Provider Source Dec 29, 2024 08:[address] W/O CONT: TUTUHIGINIO Brittani [id number] -[id number] M Exm Date: DEC 29, 2024@08:25 Req Phys: NADIA DHALIWAL Pat Loc: PTT PHONE PACT TRANSIT MECHANIC (Req'g Loc) Img Loc: NHM/CT Service: Unknown [facility] [place] [address] (Case [id number] COMPLETE) CT THORAX W/O CONT (CT Detailed) CPT:71542 Reason for Study: former heavy smoker; ascending thoracic aorta ectatic 4.1cm Clinical History: Report Status: Verified Date Reported: DEC 30, 2024 Date Verified: DEC 30, 2024 Audio Experience Expert E-Sig: Report: CT THORAX W/O CONT [PRINTSET] HISTORY: former heavy smoker; ascending thoracic aorta ectatic 4.1cm COMPARISON: 01/10/2024 TECHNIQUE: Helical CT of the chest, with multiplanar reformats, was performed at the local [place] facility. 1267 images were received by the [place] National Teleradiology Program (NTP) for interpretation. RADIATION [...] paraseptal emphysema. READING PHYSICIAN: Aashish Rutledge MD -[id number] 12/30/2024 4:28 [facility] National Teleradiology Program [phone] (For Medical Practitioner Use Only) Attention Patients / Veterans: If you have questions or concerns about these test results, please contact your ordering provider or primary care team. Primary Diagnostic Code: NO ALERT REQUIRED Primary Interpreting Staff: RADIOLOGY,OUTSIDE SERVICE, Staff Physician / RADIOLOGY,OUTSIDE SERVICE [place] [facility] [place] [facility] Encounter Notes: All associated encounter notes This section contains the clinical notes associated to the Encounter. Date/Time Encounter Note(s) Provider Source Nov 30, 2024 02:00 PM SOCIAL WORK GROUP COUNSELING NOTE: LOCAL TITLE: SOCIAL WORK GROUP NOTE STANDARD TITLE: SOCIAL WORK GROUP COUNSELING NOTE DATE OF NOTE: NOV 30, 2024@14:00 ENTRY DATE: NOV 30, 2024@15:42:03 AUTHOR: MANDY FLORES COSIGNER: URGENCY: STATUS: COMPLETED [...] ] managing PTSD symptoms [ x ] [place] specific resources [ ] anger management [ x ] aging related issues including memory/cognitive decline. [ x ] group dynamics, cohesion, and process related issues. Members provided one another with support and feedback. Next group will be 12/07/24 reported he was doing well. He said he has not resumed his morning walks, but does want to. He made a comment today that brought up a discussion of group cohesion and dynamics, which was worked through well within the group. /gio/ ANSHU CHAVEZ CLINICAL UNMANNED EQUIPMENT OPERATOR Signed: 11/30/2024 15:50 MANDY FLORES [facility]
--- OUTSIDE RECORDS SUMMARY | 2025-03-15 14:23 | XMS_ITS ---
Author Name [place] Address [address] [place] [id number] Care Team Providers Care Chief Radiation Therapist Name Role Phone YANETH JOE Primary Care [...] 's Name Patient's Relationship to Policy [facility] (WNR) MEDICARE ADVANTAGE [facility] (WNR) Oct 28, 2019 [id number] TUTU,JE JONAS PATIENT Selected Encounter This [...] PRIMARY Post-traumatic stress disorder, unspecified MARK[facility]QUELIN E [facility] Plan of Treatment: Future Appointments (+ [...] AMBULATORY - [facility]IATRY [facility] [place] [facility] May 11, 2024 02:00 PM AMBULATORY - PS[facility]IATRY [facility] [place] [facility] May 18, 2024 02:00 PM AMBULATORY - PS[facility]CHIATRY [facility] [place] [facility] Jun 01, 2024 02:00 PM AMBULATORY - PS[facility]CHIATRY [facility] [place] [facility] Jun 08, 2024 02:00 PM AMBULATORY - PS[facility]CHIATRY [facility] [place] [facility] Jun 15, 2024 02:00 PM AMBULATORY - PSYCHIATRY [facility] [place] [facility] Jun 22, 2024 02:00 PM AMBULATORY - PS[facility]CHIATRY [facility] [place] [facility] Jul 13, 2024 02:00 PM AMBULATORY - PSYCHIATRY [facility] [place] [facility] Jul 13, 2024 02:30 PM AMBULATORY - REHAB MEDICIN E [facility] [place] [facility] Jul 16, 2024 07:15 AM AMBULATORY - NONE [facility] [place] [facility] Jul 20, 2024 02:00 PM AMBULATORY - PS[facility]CHIATRY [facility] [place] [facility] Jul 27, 2024 02:00 PM AMBULATORY - PSYCHIATRY [facility] [place] [facility] Aug 03, 2024 02:00 PM AMBULATORY - PS[facility]CHIATRY [facility] [place] [facility] Aug 24, 2024 02:00 PM AMBULATORY - PS[facility]CHIATRY [facility] [place] [facility] Aug 31, 2024 02:00 PM AMBULATORY - PSYCHIATRY [facility] [place] [facility] Sep 08, 2024 08:00 AM AMBULATORY - MEDICINE [facility] [place] [facility] Sep 08, 2024 09:00 AM AMBULATORY - PSYCHIATRY [facility] [place] [facility] Sep 14, 2024 02:00 PM AMBULATORY - [place]IATRY [place] [facility] [place] [facility] Sep 21, 2024 02:00 PM AMBULATORY - PS[place]IATRY [place] [facility] [place] [facility] Oct 05, 2024 02:00 PM AMBULATORY - [place]IATRY [place] [facility] [place] [facility] Social History: Smoking Status (Most current) [...] VA-TOBACCO FORMER USER [place] [facility] [place] [facility] Tobacco Use History This section includes a history of the smoking, or tobacco-related health factors, that were collected on or before the date of the Encounter. The data comes from the [place] facility where the Encounter took place. Date/Time Smoking Status/Tobac co Use Comment Facility March 09, 2024 09:00 AM VA-TOBACCO QUIT 15 YRS OR MORE [facility] [place] [facility] March 18, 2023 02:30 PM VA-TOBACCO FORMER USER [facility] [place] [facility] March 18, 2023 02:30 PM VA-TOBACCO QUIT 15 YRS OR MORE [facility] [place] [facility] Jan 11, 2022 08:30 AM VA-TOBACCO FORMER USER [facility] [place] [facility] Jan 11, 2022 08:30 AM VA-TOBACCO QUIT 15 YRS OR MORE [facility] [place] [facility] Dec 26, 2020 09:00 AM VA-TOBACCO FORMER USER [facility] [place] [facility] Dec 26, 2020 09:00 AM VA-TOBACCO QUIT 15 YRS OR MORE [facility] [place] [facility] Dec 08, 2019 09:16 AM VA-TOBACCO FORMER USER [facility] [place] [facility] Dec 08, 2019 09:16 AM VA-TOBACCO QUIT 15 YRS OR MORE [facility] [place] [facility] Oct 14, 2018 02:56 PM VA-TOBACCO FORMER USER [facility] [place] [facility] Oct 14, 2018 02:56 PM VA-TOBACCO QUIT 15 YRS OR MORE [facility] Dec 12, 2017 09:20 AM QUIT TOBACCO USE > 7 YEARS AGO quit > 30 yrs ( 2-3 pks a day) [facility] Advance Directives: All historical and current Section [...] 08, 2019 ADVANCE DIRECTIVE SAMM BRINK V [facility] Encounter Notes: All associated encounter [...] new problems or concerns. /gio/ MANDY FLORES [facility] CLINICAL DOUGH MIXER HELPER Signed: 04/06/2024 16:21 MANDY FLORES [facility]
--- OUTSIDE RECORDS SUMMARY | 2025-03-15 14:23 | XMS_ITS | Encounter Summary ---
Author Name Department [place] Address [address] [place] [id number] Care Team Providers Care Mannequin Mold Maker Name Role Phone YANETH JOE Primary [...] Patient's Relationship to Policy [facility] (WNR) MEDICARE ADVANTAGE [facility] ([facility]) Oct 28, 2019 [id number] TUTU,JE JONAS PATIENT Selected Encounter This [...] PRIMARY Post-traumatic stress disorder, unspecified MARK[facility]ELIN E [facility] Plan of Treatment: Future Appointments (+ 6 months) and Future Tests (+/- 45 days) The Plan of Treatment section includes future care activities for the patient from all [facility] This section includes future appointments [...] [facility] [place] [facility] Jun 22, 2024 02:00 PM AMBULATORY - PSYCHIATRY [facility] [place] [facility] Jul 13, 2024 02:00 PM AMBULATORY - PSYCHIATRY [facility] [place] [facility] Jul 13, 2024 02:30 PM AMBULATORY - REHAB MEDICIN E [facility] [place] [facility] Jul 16, 2024 07:15 AM AMBULATORY - NONE [facility] [place] [facility] Jul 20, 2024 02:00 PM AMBULATORY - PSYCHIATRY [facility] [place] [facility] Jul 27, 2024 02:00 PM AMBULATORY - PSYCHIATRY [facility] [place] [facility] Aug 03, 2024 02:00 PM AMBULATORY - PSYCHIATRY [facility] [place] [facility] Aug 24, 2024 02:00 PM AMBULATORY - PSYCHIATRY [facility] [place] [facility] Aug 31, 2024 02:00 PM AMBULATORY - PSYCHIATRY [facility] [place] [facility] Sep 08, 2024 08:00 AM AMBULATORY - MEDICINE [facility] [place] [facility] Sep 08, 2024 09:00 AM AMBULATORY - PSYCHIATRY [facility] [place] [facility] Sep 14, 2024 02:00 PM AMBULATORY [...] [facility] [place] [facility] Oct 27, 2024 11:45 AM AMBULATORY - PSYCHIATRY [place] [facility] [place] [facility] Nov 02, 2024 02:00 PM AMBULATORY - PSYCHIATRY [place] [facility] [place] [facility] Nov 23, 2024 02:00 PM AMBULATORY - PSYCHIATRY [place] [facility] [place] [facility] Social History: Smoking Status (Most current) [...] AM VA-TOBACCO QUIT 15 YRS OR MORE [place] [facility] [place] [facility] Tobacco Use History This section includes a history of the smoking, or tobacco-related health factors, that were collected on or before the date of the Encounter. The data comes from the [place] facility where the Encounter took place. Date/Time Smoking Status/Tobac co Use Comment Facility March 09, 2024 09:00 AM VA-TOBACCO QUIT 15 YRS OR MORE [place] [facility] [place] [facility] March 18, 2023 02:30 PM VA-TOBACCO FORMER USER [facility] [place] [facility] March 18, 2023 02:30 PM VA-TOBACCO QUIT 15 YRS OR MORE [facility] [place] [facility] Jan 11, 2022 08:30 AM VA-TOBACCO FORMER USER [facility] [place] [facility] Jan [...] 14, 2018 02:56 PM VA-TOBACCO FORMER USER [facility] Oct 14, 2018 02:56 PM [place]-TO[place]AC[place] QUIT 15 YRS OR MORE [facility] Dec 12, 2017 09:20 AM QUIT TOBACCO USE > 7 YEARS AGO quit > 30 yrs ( 2-3 pks a day) [facility] Advance Directives: All historical and [...] Feb 09, 2019 ADVANCE DIRECTIVE VAN MORENO [facility] Feb 08, 2019 ADVANCE DIRECTIVE SAMM BRINK V [facility] Encounter Notes: All associated encounter notes [...] returning to no use. /gio/ MANDY FLORES [facility] CLINICAL TIRE BAGGER Signed: 06/08/2024 16:24 [facility]ES [facility]
--- OUTSIDE RECORDS SUMMARY | 2025-03-15 14:23 | XMS_ITS | Encounter Summary ---
Author Name [place] Address [address] [place] [address] Care Team Providers Care Engineering Design Manager Name Role Phone YANETH JOE Primary [...] Name Patient's Relationship to Policy [facility] ([facility]) MEDICARE ADVANTAGE [facility] ([facility]) Oct 28, 2019 [id number] IVANA CAM PATIENT Selected Encounter This section includes the information on record at [place] for the Encounter. Date/Time Encounter Type Encounter Description Reason Provider Source Sep 08, 2024 09:00 AM PSYTX W PT W E/M 30 [facility] - IND ICD-10-CM F43.12 Post-traumatic stress disorder, chronic MARIO WIGGINS [facility] Encounter Template Text not used by [place] Assessments - Encounter Diagnoses This section includes the primary and secondary diagnoses documented for the Encounter. Date/Time Primary/Secondary Diagnosis Diagnosis Name Provider Source Sep 08, 2024 07:19 PM PRIMARY Post-traumatic stress disorder, chronic MARIO WIGGINS [place] [facility] Plan of Treatment: Future Appointments (+ 6 months) and Future Tests (+/- 45 days) The Plan of Treatment section includes future care activities for the patient from all [place] [facility]. This section includes future appointments and [...] AMBULATORY - PS[facility]IATRY [facility] [place] [facility] Sep 21, 2024 02:00 PM AMBULATORY - PSYCHIATRY [facility] [place] [facility] Oct 05, 2024 02:00 PM AMBULATORY - PSYCHIATRY [facility] [place] [facility] Oct 12, 2024 02:00 PM AMBULATORY - PSYCHIATRY [facility] [place] [facility] Oct 19, 2024 02:00 PM AMBULATORY - PSYCHIATRY [facility] [place] [facility] Oct 27, 2024 11:45 AM AMBULATORY - PSYCHIATRY [facility] [place] [facility] Nov 02, 2024 02:00 PM AMBULATORY - PSYCHIATRY [facility] [place] [facility] Nov 23, 2024 02:00 PM AMBULATORY - PSYCHIATRY [facility] [place] [facility] Nov 26, 2024 11:45 AM AMBULATORY - MEDICINE [facility] [place] [facility] Nov 30, 2024 02:00 PM AMBULATORY - PSYCHIATRY [facility] [place] [facility] Dec 07, 2024 02:00 PM AMBULATORY - PSYCHIATRY [facility] [place] [facility] Dec 21, 2024 02:00 PM AMBULATORY - PSYCHIATRY [facility] [place] [facility] Dec 28, 2024 02:00 PM AMBULATORY - PSYCHIATRY [facility] [place] [facility] Dec 29, 2024 08:30 AM AMBULATORY - NONE [facility] [place] [facility] Jan 04, 2025 02:00 PM AMBULATORY - PSYCHIATRY [facility] [place] [facility] Jan 11, 2025 02:00 PM AMBULATORY - PSYCHIATRY [facility] [place] [facility] Jan 12, 2025 07:30 AM AMBULATORY - NONE [facility] Jan 18, 2025 02:00 PM [facility] Feb 01, 2025 02:00 PM [facility] Feb 08, 2025 02:00 PM AMBULATORY - PSYCHIATRY [facility] Lab Results: +/- 30 days of [...] Type Comment Aug 31, 2024 01:30 PM [facility] PSA SERUM Specimen Type: SERUM No comment entered. Ordering Provider: YANETH JOE Report Released Date/Time: March 09, 2024 09:50 AM Reporting Lab: [address] [address] Performing Lab: [address] [address] PSA 8.81 ng/mL H 0.00-4.00 Aug 31, 2024 01:30 PM [facility] BASIC METABOLIC PANEL (non-fasting) SERUM Spe cimen Type: SERUM No comment entered. Ordering Provider: YANETH JOE Report Released Date/Time: March 09, 2024 09:50 AM Reporting Lab: [address] [address] Performing Lab: [address] [address] UREA NITROGEN 16 mg/dL 7-25 GLUCOSE 106 [...] 127/76 16 99 0 74 187 24 [place] [facility] [place] [facility] [facility] Social History: Smoking Status (Most [...] VA-TOBACCO FORMER USER [place] [facility] [place] [facility] Tobacco Use History This section includes a history of the smoking, or tobacco-related health factors, that were collected on or before the date of the Encounter. The data comes from the [place] facility where the Encounter took place. Date/Time Smoking Status/Tobac co Use Comment Facility March 09, 2024 09:00 AM VA-TOBACCO QUIT 15 YRS OR MORE [facility] [place] [facility] March 18, 2023 02:30 PM VA-TOBACCO FORMER USER [facility] [place] [facility] March 18, 2023 02:30 PM VA-TOBACCO QUIT 15 YRS OR MORE [facility] [place] [facility] Jan 11, 2022 08:30 AM VA-TOBACCO FORMER USER [facility] [place] [facility] Jan 11, 2022 08:30 AM VA-TOBACCO QUIT 15 YRS OR MORE [facility] [place] [facility] Dec 26, 2020 09:00 AM VA-TOBACCO FORMER USER [facility] [place] [facility] Dec 26, 2020 09:00 AM VA-TOBACCO QUIT 15 YRS OR MORE [facility] [place] [facility] Dec 08, 2019 09:16 AM VA-TOBACCO FORMER USER [facility] [place] [facility] Dec 08, 2019 09:16 AM VA-TOBACCO QUIT 15 YRS OR MORE [facility] [place] [facility] Oct 14, 2018 02:56 PM VA-TOBACCO FORMER USER [facility] Oct 14, 2018 02:56 PM [place]-TOBACCO QUIT 15 YRS OR MORE [facility] Dec 12, 2017 09:20 AM QUIT TOBACCO USE > 7 YEARS AGO quit > 30 yrs ( 2-3 pks a day) [facility] Advance Directives: All historical and current [...] 09, 2019 ADVANCE DIRECTIVE VAN MORENO [facility] Feb 08, 2019 ADVANCE DIRECTIVE SAMM BRINK V [facility] Encounter Notes: All associated encounter notes This section contains the clinical notes associated to the Encounter. Date/Time Encounter Note(s) Provider Source Sep 08, 2024 07:02 PM CLINICAL NURSE SPECIALIST NOTE: LOCAL TITLE: CLINICAL NURSE SPECIALIST/MENTAL HEALTH STANDARD TITLE: CLINICAL NURSE SPECIALIST NOTE DATE OF NOTE: SEP 08, 2024@19:02 ENTRY DATE: SEP 08, 2024@19:02:13 AUTHOR: TONI WIGGINS EXP COSIGNER: URGENCY: STATUS: COMPLETED HIGINIO CAM JR, a 74year old BLACK OR MALE was seen for scheduled follow-up at [facility] for Dx: PTSD, ION by history He is known to software writer and visit was for 30 minutes. Active problems - Computerized Problem List is the source for the followin. Incomplete bladder emptying 2. Adult screening status 3. Hyperlipidemia 4. Patient requires hospitalization 5. Chronic alcoholism in remission 6. Chronic post-traumatic stress disorder 7. Under care of multiple providers 8. Anaphylactic reaction 9. History of surgery 10. Hypertension 11. Trauma CHART REVIEW: Hibbs is a patient of Dr. Patton and Pact 1, he likes his PCP and states he feels that he gets good care at [place]. He is also seen by dental clinic and [facility]. Continues weekly groups. PAST PSYCHIATRIC HISTORY: started treatment at the [facility] in 2008, [facility] and [facility] treatment at [facility] then started mental health treatment for PTSD in 2018 with ANSHU Chris. He was treated by Dr. Radford over many years until that doctor retired. PAST MEDICATION TRIALS: Naltrexone STRENGTHS: conversant and intelligent :[employer] FROM Oct TO Sep SUBJECTIVE: The Hibbs was seen today for routine follow up; visit lasted for 30 minutes. reports doing fine, he and continue to get along well. No alcohol for over four years, not smoking for many years. No use of other drugs. When totally stopped alcohol he found he could lose a good deal of weight, which made him happy. He is maintaining weight and healthy lifestyle and enjoys. Alan is doing well on current stabilizing med, denies side effects or other med issues and wants to continue current med regime. Alan relates that his 68 year old sister is now in a Prison where she is safe. He visits almost [...] not need to worry as much. Currently [facility] finally got her [place] [employer], so she can stay in a Prison. She has nice staff and residents at her current Prison. He is assisting as much as he [...] and he was also told about the [place] in case he should have an urgent [...] this VA (local) and dispensed from another VA or DoD facility (remote) as well as [...] NURSE SPECIALIST Signed: 09/08/2024 19:19 [facility] WIGGINS [facility]
[2025-03-15 14:32] VITALS: BP 124/70; PULSE 71; TEMP 36.1; O2SAT 97; BMI 25.8
--- NOTE | 2025-03-15 14:32 | A.OFFPC_ITS ---
Vital Signs 03/15/25 14:32 Height 6 ft Weight 190 lb 6 oz BMI 25.8 BP 124/70 Blood Pressure Location Lt brachial Position Sitting Pulse 71 Pulse Source Pulse Oximeter Temp 97 F Temp Source Temporal Artery Scan Pulse Oximetry (%) 97 Oxygen Delivery Method Room Air Intake Visit Reasons: 3 Month F/U/Transfer Wenceslao Print And Pattern Designer Required: No Accompanied by: Self / Same As Patient Allergies bee pollen [BEE STINGS] Allergy (Mild, Verified 03/15/25 14:44) SWELLING SHELLFISH Allergy (Severe, Uncoded 03/15/25 14:44) SWELLING Medication List - Last Reconciled 03/15/25 by Edwin Bradley PA-C amlodipine 5 mg PO DAILY ammonium lactate 12% appl topical BID benazepril 20 mg PO DAILY fexofenadine (Jessica Allergy) 180 mg PO DAILY finasteride 5 mg PO DAILY 90 days rosuvastatin 20 mg PO DAILY Tobacco use date assessed: 12/03/24 Fall risk assessment: No Falls in past year Last assessed Fall Risk: 03/15/25 Dental Screening Dental Screen Date: 11/04/24 HPI 3 Month F/U/Transfer Wenceslao HPI Details Patient is a 74-year-old male here today for a transfer of care visit. Previous PCP was Dr. Billy. Patient is a [employer] . Patient has a past medical history significant for BPH, hypertension, hyperlipidemia. .. Hypertension: Patient adherent to his antihypertensive medication. Today's blood pressure acceptable in office. .. Hyperlipidemia: Patient's lipid panel has been stable. Continues on rosuvastatin 20 mg with good effect. .. BPH: Patient followed by Urology here in [place]. He denies any urinary symptoms. Recent PSAs slightly elevated. Laboratory Tests 11/26/23 11/02/24 01/11/25 06:41 06:51 07:04 Cholesterol 184 LDL Cholesterol, C alc 115 H PSA Screen 5.20 H 7.31 H Total PSA 9.11 H PFSH Medical History Hx of pancreatitis Hyperlipidemia HTN (hypertension) Surgical History Hx of colonoscopy History of arthroplasty of right hip History of rectal polypectomy History of tonsillectomy Family History Father Diabetes Hypertension Prostate cancer Mother Alzheimers disease Social History Housing: House Are you a primary customer care specialist to a significant other at home: No Do you presently have visiting nurse or other home services: No Alcohol intake: former Year quit: 2018 Patient Tobacco Use Status: Former Tobacco user Tobacco use type: Cigarette e-Cigarette/Vaping Use: Never Used Second Hand Smoke Exposure: No service: Yes Current occupational status: retired Cognitive needs: No Hearing needs: Yes (hearing aides) Vision needs: Yes (glasses) Questionnaire Thrive Questionnaire Date Thrive assessed: 11/26/24 I am a: Patient What is your living situation today?: I have a steady place to live Within the past 12 months, did the food you bought not last and you didn't have the money to get more?: Never true Within the past 12 months, did you worry whether your food would run out before you got money to buy more?: Never true Do you have trouble paying for medicines?: No Do you have trouble getting transportation to medical appointments?: No Do you have trouble paying your heating and electricity bill?: No Do you have trouble taking care of your child, family member or friend?: No Do you have trouble with day-to-day activities such as bathing, preparing meals, shopping, managing finances, etc.?: No Are you currently unemployed and looking for a job?: No Are you interested in more education?: No Please select the resources that you would like help with: None Currently or been in a relationship where the following occur: No concerns reported THRIVE Score: 0 RADHA-7 AMB Questionnaire RADHA-7 Date RADHA - 7 assessed: 12/03/24 Source: Developed by Drs. Michael Anaya, Eladia Wallace, Orlando Coats and colleagues, with an educational rachel from [employer]. Review of Systems Const Denies headache(s) Eyes Denies loss of vision ENT Denies vertigo, Denies dizziness, Denies headache(s) and Denies sore throat Card Denies chest pain, Denies leg edema and Denies lightheadedness Resp Denies cough, Denies hemoptysis and Denies wheezing GI Denies abdominal pain, Denies melena, Denies constipation, Denies diarrhea and Denies vomiting Denies dysuria, Denies urinary frequency and Denies urinary urgency Musc Denies arthralgias, Denies joint swelling, Denies numbness and Denies tingling Neuro Denies Abnormal speech present, Denies behavioral changes, Denies vertigo, Denies dizziness, Denies headache(s), Denies loss of vision, Denies memory loss, Denies numbness and Denies tingling Psych Denies anxiety, Denies behavioral changes, Denies depression, Denies memory loss and Denies panic attacks Cuauhtemoc/Lymph Denies easy bleeding and Denies easy bruising Aller/Immun Denies wheezing Physical exam (Primary Care) Vital Signs: Last Vital Signs Temp 97 F 03/15/25 14:32 Pulse 71 03/15/25 14:32 BP 124/70 03/15/25 14:32 Pulse Ox 97 03/15/25 14:32 Oxygen Delivery Method Room Air 03/15/25 14:32 BMI result Body Mass Index 25.8 Tobacco/Smoking Status: Tobacco use Status Tobacco use date assessed 12/03/24 03/15/25 14:36 Patient Tobacco Use Status Former Tobacco user 03/15/25 14:36 Tobacco use type Cigarette 03/15/25 14:36 e-Cigarette/Vaping Use Never Used 03/15/25 14:36 Thrive Assessment: Date of Thrive Assessment Date Thrive assessed 11/26/24 03/15/25 14:36 Currently or been in a relationship where the following occur: No concerns reported Const General: healthy appearing, no acute distress, alert and awake Nutritional Appearance: well nourished Orientation/consciousness: oriented to person, oriented to place and oriented to time HENAK Ears: TM's normal bilaterally General nose exam: Normal nasal mucous membranes and turbinates present Eyes Conjunctivae: conjunctivae normal Sclerae: sclerae normal Pupils: Equal, round and reactive pupils present Neck Neck: Yes no lymphadenopathy and Yes no JVD Thyroid: Thyroid normal Carotids: no bruits Resp Effort & Inspection: normal respiratory effort and not tachypneic Auscultation: no crackles, no rales, no rhonchi and no wheezes Cardio Rate: regular rate Rhythm: regular rhythm Heart sounds: no murmurs and normal S1 and S2 GI Palpation (GI): Soft to palpation, nontender, no hepatomegaly and no splenomegaly Auscultation: normal bowel sounds Skin General skin exam: no rashes or lesions noted and dry skin Neuro General: oriented to person, oriented to place and oriented to time Cranial nerves: Yes Equal, round and reactive pupils present Speech: No Abnormal speech present Gait exam (Neuro): Normal gait present Motor exam (neuro): no tremor noted Extrem Right upper extremity: full ROM Left upper extremity: full ROM Right lower extremity: full ROM; no edema Left lower extremity: full ROM; no edema Psych Mental Status: mental status grossly normal Speech and movement: Normal speech and movement present Affect: normal affect Attitude: cooperative Thought process: Normal thought process present Coding Level of Care Code Est Pt Level 4 (98879) Diagnoses Mixed hyperlipidemia E78.2 Hyperlipidemia type: mixed hyperlipidemia Primary hypertension I10 Hypertension type: primary hypertension BPH w urinary obs/LUTS N40.1; N13.8 Assessment & Plan Assessment & Plan (1) Hyperlipidemia: Code(s): E78.5 - Hyperlipidemia, unspecified Category: Medical Qualifiers: Hyperlipidemia type: mixed hyperlipidemia Qualified Code(s): E78.2 - Mixed hyperlipidemia Plan: Patient's most recent lipid panel showing good control over his total cholesterol and LDL. He will continue rosuvastatin 20 mg with goal LDL to remain below 130 (2) Hypertension: Code(s): I10 - Essential (primary) hypertension Category: Medical Qualifiers: Hypertension type: primary hypertension Qualified Code(s): I10 - Essential (primary) hypertension Plan: Patient's blood pressure acceptable today in office. Will continue his current dose of antihypertensive medication with goal blood pressure to remain below 140/90 (3) BPH w urinary obs/LUTS: Code(s): N40.1 - Benign prostatic hyperplasia with lower urinary tract symptoms; N13.8 - Other obstructive and reflux uropathy Category: Medical Plan: Patient continues to follow urology, continues on finasteride with good effect. He denies any urinary symptoms. Orders: Orders Comprehensive [place]. Panel Fast Today I10 - Essential (primary) hypertension Lipid Panel Today E78.5 - Hyperlipidemia, unspecified Complete Blood Count no Diff Today I10 - Essential (primary) hypertension Microalbumin, Random (w Creat) Today I10 - Essential (primary) hypertension
== END 2025-03-15 14:54 | disposition home or self-care (01) ==
LOC: HO.HMCH 14:11
PROVIDERS: PCP Internal Medicine; Visit Provider Physician Assistant
DX: E78.2 Mixed hyperlipidemia (principal); I10 Essential (primary) hypertension; N40.1 Benign prostatic hyperplasia with lower urinary tract symptoms; N13.8 Other obstructive and reflux uropathy

== ENCOUNTER → 2025-03-15 14:10 | Outpatient (BNVA) | payer MEDICARE, SELFPAY | PROVIDERS: PCP Internal Medicine; Visit Provider Physician Assistant | DX: E78.2 Mixed hyperlipidemia (principal); I10 Essential (primary) hypertension; N40.1 Benign prostatic hyperplasia with lower urinary tract symptoms; N13.8 Other obstructive and reflux uropathy | CPT/HCPCS: 99212 ==

== ENCOUNTER 2025-05-20 06:06 | Outpatient (REF) | payer OTHER, MEDICARE, SELFPAY ==
--- OUTSIDE RECORDS SUMMARY | 2025-05-20 06:09 | XMS_ITS | Patient Health Record ---
Author Organization [facility] Address [address] [place] [address] Care Team Providers Care Caretaker Resort Name Role Phone Wenceslao MALHOTRA, Kleber Primary Care Provider Michael Daily [phone] Allergies Allergen (clinical drug ingredient) Drug/Non Drug [...] Problem Status W/U Status Risk Notes Problem 566933868 Encounter for screening for malignant neoplasm of colon (Z12.11) Active confirmed Problem 053986171 Elevated liver function tests (R79.89) Active confirmed Problem 285943023224759 Preprocedural examination (Z01.818) Active confirmed Problem 301687954 Alcohol-induced acute pancreatitis, 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 screening colonoscopy in 08/2010 an d in 10/2020 Pancreatitis in 2018 due to EtOH Diverticulosis Aseptic necrosis R/hip Surgical History Surgery Date(Month/Year) Right hip replacement 08/2005 Tonsillectomy
--- OUTSIDE RECORDS SUMMARY | 2025-05-20 06:09 | XMS_ITS | Patient Health Record ---
Author Organization [facility] Address [address] [place] [address] Care Team Providers Care Manager Online Name Role Phone Edwin Bradley Primary Care Provider Unavailab Osman Jeong Unavailable [phone] Allergies Allergen (clinical drug ingredient) Drug/Non Drug [...] Ammonium Lactate 12 % 1 application Externally to affected areas of dry skin to feet except for between the toes Twice a day; Duration: 30 days Active Rosuvastatin Calcium 20 MG 1 tablet Orally Once a day; Duration: 30 day(s) Active Jessica Allergy 180 MG 1 tablet Orally O nce a day Active Benazepril HCl 20 MG Orally Active Simvastatin 40 MG Orally No t-Taking Immunizations Vaccine Route Administration Date Status Comme nts Influenza Unknown 07/28/2024 Administered COVID-19 Moderna Vaccine Unknown 09/09/2021 Administered 1st [...] Answer Notes Did you have a drink contain ing alcohol in the past year? Yes How often did you have a dri nk containing alcohol in the past year? Monthly or less (1 point) How many drinks did you have on a typical day when you were drinking in the past year? 1 or 2 drinks (0 point) How often did you have six o r more drinks on one occasion in the past year? 2 to 4 times a month (2 points) Points 3 Interpretation Negative Problems Problem Type SNOMED Code ICD Code Onset Dates Problem Status W/U Status Risk Notes Problem Bilateral atherosclerosis of arteries of lower limbs (disorder) (59111880115164634 ) Atherosclerosis of [place] artery of both lower extremities, with unspecified presence of clinical manifestation (I70.203) Active confirmed Vital Signs Blood pressure diastolic 70 mm Hg 05/04/2025 Height 6ft 2in in 05/04/2025 Blood pressure systolic 126 mm Hg 05/04/2025 Weight 186 lbs 05/04/2025 BMI 23.88 kg/m2 05/04/2025 Procedures Procedure Date Ordered Date Performed Result Body Sit e 56458-QUCSHLW NAIL, 6 OR MORE 07/28/2024 N/A 74396-PBPC SKIN LESIONS, OVER 4 07/28/2024 N/A 83123-KTPJYTS NAIL, 6 OR MORE 11/03/2024 N/A 49153-CSPP SKIN LESIONS, OVER 4 11/03/2024 N/A 82221-FKRLMRK NAIL, 6 OR MORE 02/02/2025 N/A 72290-MPCB SKIN LESIONS, OVER 4 02/02/2025 N/A 24444-MKNTBXV NAIL, 6 OR MORE 05/04/2025 N/A 11238-VNBY SKIN LESIONS, OVER 4 05/04/2025 N/A Encounters Encounter Location Date Provider Diagnosis [facility] [address] [address] 07/28/2024 Osman Blanc Atherosclerosis of [place] artery of both lower extremities, with unspecified presence of clinical manifestation I70.203 ; Tinea unguium B35.1 ; Pain in right toe(s) M79.674 and Pain in left toe(s) M79.[address] [facility] [address] 11/03/2024 Osman Blanc Atherosclerosis of [place] artery of both lower extremities, with unspecified presence of clinical manifestation I70.203 ; Tinea unguium B35.1 ; Pain in right toe(s) M79.674 and Pain in left toe(s) M79.[address] [address] 02/02/2025 Osman Hernandezunier Atherosclerosis of [place] artery of both lower extremities, with unspecified presence of clinical manifestation I70.203 ; Tinea unguium B35.1 ; Pain in right toe(s) M79.674 and Pain in left toe(s) M79.[address] [address] 05/04/2025 Osman Hernandezunier Atherosclerosis of [place] artery of both lower extremities, with unspecified presence of clinical manifestation I70.203 ; Tinea unguium B35.1 ; Pain in right toe(s) M79.674 ; Pain in left toe(s) M79.675 and Xerosis of skin L85.3 Assessments Encounter Date Diagnosis (ICD Code) Assessment Notes Treatment Notes Treatment Clinical Notes Section Notes 07/28/2024 Tinea unguium (ICD-10 - B35.1) 07/28/2024 Atherosclerosis of [place] artery of both lower extremities, with unspecified presence of clinical manifestation (ICD-10 - I70.203) 11/03/2024 Tinea unguium (ICD-10 - B35.1) 11/03/2024 Atherosclerosis of [place] artery of both lower extremities, with unspecified presence of clinical manifestation (ICD-10 - I70.203) 02/02/2025 Tinea unguium (ICD-10 - B35.1) 02/02/2025 Atherosclerosis of [place] artery of both lower extremities, with unspecified presence of clinical manifestation (ICD-10 - I70.203) 05/04/2025 Tinea unguium (ICD-10 - B35.1) 05/04/2025 Atherosclerosis of [place] artery of both lower extremities, with unspecified presence of clinical manifestation (ICD-10 - I70.203) 05/04/2025 Pain in right toe(s) (ICD-10 - M79.674) 11/03/2024 Pain in right toe(s) (ICD-10 - M79.674) 02/02/2025 Pain in right toe(s) (ICD-10 - M79.674) 07/28/2024 Pain in right toe(s) (ICD-10 - M79.674) 07/28/2024 Pain in left toe(s) (ICD-10 - M79.675) 11/03/2024 Pain in left toe(s) (ICD-10 - M79.675) 02/02/2025 Pain in left toe(s) (ICD-10 - M79.675) 05/04/2025 Pain in left toe(s) (ICD-10 - M79.675) 05/04/2025 Xerosis of skin (ICD-10 - L85.3) Plan Of Treatment Pending Test Test Name Order Date 29011-[id number] NAIL, 6 OR MORE 04/10/2022 16365-ZLXRBPH NAIL, 6 OR MORE 07/10/2022 00253-FUNQLPM NAIL, 6 OR MORE 10/12/2022 18958-IPZIQCV NAIL, 6 OR MORE 01/25/2023 07720-GJZQHQC NAIL, 6 OR MORE 04/23/2023 73383-TIWSPXF NAIL, 6 OR MORE 07/26/2023 60530-FGNSXSH NAIL, 6 OR MORE 11/01/2023 00670-PBYABQJ NAIL, 6 OR MORE 01/31/2024 91674-XPBHRUM NAIL, 6 OR MORE 05/05/2024 04546-MNFKTEP NAIL, 6 OR MORE 07/28/2024 46941-VQIJPCW NAIL, 6 OR MORE 11/03/2024 03151-LUPDSAC NAIL, 6 OR MORE 02/02/2025 85637-VXPGCZB NAIL, 6 OR MORE 05/04/2025 46975-IJDD SKIN LESIONS, OVER 4 05/04/20 25 66755-LHXW SKIN LESIONS, OVER 4 02/03/20 25 01390-EVCM SKIN LESIONS, OVER 4 11/03/19 25 67042-ZAAD SKIN LESIONS, OVER 4 07/28/20 24 35001-GMNJ SKIN LESIONS, OVER 4 05/05/20 24 16556-TLBC SKIN LESIONS, OVER 4 01/31/20 24 69857-ESHE SKIN LESIONS, OVER 4 11/01/19 24 05963-OKEH SKIN LESIONS, OVER 4 07/26/20 23 00188-ETAX SKIN LESIONS, OVER 4 04/23/20 23 54273-ZNMF SKIN LESIONS, OVER 4 01/26/20 23 29227-ASIH SKIN LESIONS, OVER 4 10/12/20 22 76502-CCAW SKIN LESIONS, OVER 4 07/10/20 22 71760-ZOZR SKIN LESIONS, OVER 4 04/10/20 Next Appt Details Provider Name:Osman Blanc , 08/03/2025 09:00:00 AM, [address] [place], [address], Insurance Providers Payer Name Payer Address Payer Phone Subscriber Number Group Number Insured Name Patient Relationship to Insured Coverage Start Date Coverage End Date [employer] Medicare Adv-[id number] [address] [address] [place] [address] [id number] Lynette Sanchez Self - patient is the insured Medical (General) History Medical History History ICD Code high blood pressure measles chicken pox bone implants Joint implants/screws Cholesterol Surgical History Surgery Date(Month/Year) right hip surgery 07/2015 Hospitalization History Reason Date(Month/Year) [facility] [place] ER- Unknown Headache Ede natalie for 5 days same day took off med simvastatin 12/25/22
[2025-05-20 07:06] LABS: Hematocrit 41.3 % (42.0-52.0); Hemoglobin 13.7 g/dl (14.0-18.0); Mean Corpuscular HGB Conc 33.2 g/dl (31.0-36.0); Mean Corpuscular Hemoglobin 25.7 pg (27.0-33.0); Mean Corpuscular Volume 77.3 fL (80.0-98.0); NRBC Abs Auto 0.000 X10*3/uL (0.0-0.012); NRBC Pct Auto 0.0 /100WBC (0.0-0.2); Platelet Count 206 X10*3/uL (160-400); Red Blood Count 5.34 X10*6/uL (4.60-5.80); White Blood Count 4.6 X10*3/uL (4.8-10.8)
[2025-05-20 07:39] LABS: Albumin Level 4.0 g/dL (3.5-5.0); Alkaline Phosphatase 69 U/L (39-117); Anion Gap 9 (12-20); Aspartate Amino Transferase 32 U/L (5-37); Blood Urea Nitrogen 16 mg/dL (9-16); Calcium 9.3 mg/dL (8.4-10.2); Carbon Dioxide 28 mmol/L (22-29); Chloride 109 mmol/L (96-108); Cholesterol 182 mg/dL (<200); Estimated Glomerular Filt Rate > 60; HDL Cholesterol 77 mg/dL (>40); Potassium 4.4 mmol/L (3.3-5.1); Sodium 142 mmol/L (135-145); Total Protein 7.2 g/dL (6.5-8.0); Triglycerides 42 mg/dL (<150)
[2025-05-20 07:59] LABS: Microalbum/Creatinine Ratio Ur 9.7 ug/mg cr (<30)
[2025-05-20 08:00] LABS: PSA,Total (Free>4and<10) 3.58 ng/mL (0.00-4.00)
[2025-05-20 08:56] LABS: Alanine Aminotransferase 41 U/L (0-40)
== END 2025-05-20 06:07 | disposition home or self-care (01) ==
LOC: HO.LAB 06:06
PROVIDERS: Absent Provider Urology; PCP Physician Assistant; Visit Provider Physician Assistant
DX: I10 Essential (primary) hypertension (principal); E78.5 Hyperlipidemia, unspecified; R97.20 Elevated prostate specific antigen [PSA]
CPT/HCPCS: 36415; 80053; 80061; 82043; 82570; 84153; 84403; 85027

== ENCOUNTER 2025-06-04 08:58 | Outpatient (AMB) | payer OTHER, MEDICARE, SELFPAY ==
--- NOTE | 2025-06-04 08:59 | A.OFFVIS_ITS ---
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 He is a patient of Dr. Yarbrough. He is seen for the following urologic conditions - lower urinary tract symptoms Telemedicine Evaluation 15 min Consultation [facility] Medical Sara Video Good response to finasteride PSA significant drop Obtaining medications through [facility] Testosterone normal Six-month follow-up office Lower urinary tract symptoms Prior laser prostatectomy 2018 Satisfied with current urinary parameters - Effective stream, good bladder emptying, does have nocturia 1-2 times but drinks liquid until 21:00 - cut back on tea Previous laser prostatectomy PSA - 2019 2.6, 03/17 2.8, 05/18 3.2, 03/19 3.8, 11/21 7.3, 01/19 8.0 6%, 05/21 3.6 T 670 Prostate MRI 01/19 - 2 x 8 mm lesions contained within the prostate PI-RADS 4 suspicious for prostate cancer Therapeutic plan continue with yearly follow-up and PSA PFSH Medical History Hx of pancreatitis Hyperlipidemia HTN (hypertension) Surgical History Hx of colonoscopy History of arthroplasty of right hip History of rectal polypectomy History of tonsillectomy Family History Father Diabetes Hypertension Prostate cancer Mother Alzheimers disease Social History Housing: House Are you a primary long term care social worker to a significant other at home: No Do you presently have visiting nurse or other home services: No Alcohol intake: former Year quit: 2018 Patient Tobacco Use Status: Former Tobacco user Tobacco use type: Cigarette e-Cigarette/Vaping Use: Never Used Second Hand Smoke Exposure: No service: Yes Current occupational status: retired Cognitive needs: No Hearing needs: Yes (hearing aides) Vision needs: Yes (glasses) Review of Systems Const Denies chills and Denies fever(s) Card Reports no additional complaints and Denies syncope Resp Denies cough GI Denies abdominal pain and Denies heartburn Reports as per HPI and Denies change in libido Neuro Denies syncope Psych Denies change in libido Endo Denies change in libido Physical Exam Const General: cooperative, healthy appearing, comfortable and no acute distress Orientation/consciousness: patient oriented x3 HEENT Face and sinus: Yes normal facial exam Mouth: moist mucous membranes Neck Neck: Yes normal visual inspection, Yes full ROM and Yes trachea midline Chest Chest palpation & inspection: normal inspection of the chest Resp Effort & Inspection: normal respiratory effort, able to speak in complete sentences and no respiratory distress GI Inspection: Yes normal to inspection Back/Spine/Pelvis Cervical Spine: normal cervical lordosis Thoracic/Lumbar Spine: thoracic and lumbar spine normal to inspection Skin General skin exam: no rashes or lesions noted Neuro General: patient oriented x3, gait normal, tone normal and moves all extremities Extrem General: Yes normal to inspection and Yes capillary refill normal Telehealth Telehealth Telehealth Platform: [employer] Location of provider rendering services: practice address Location of patient: address on file Patient Identification confirmed using: Name, : Yes Telehealth method: video Patient verbally consented to treatment: Yes Patient verbally consented to billing insurance company: Yes Patient informed of any privacy concerns related to visit: Yes Minutes spent on Phone/Video with Pt.: 15 Assessment & Plan Assessment & Plan (1) BPH w urinary obs/LUTS: Code(s): N40.1 - Benign prostatic hyperplasia with lower urinary tract symptoms; N13.8 - Other obstructive and reflux uropathy Category: Medical (2) Elevated PSA: Code(s): R97.20 - Elevated prostate specific antigen [PSA] Category: Medical Plan Six-month follow-up PSA office Orders: Orders Prostate Specific Antigen 6 Months R97.20 - Elevated prostate specific antigen [PSA] Patient Instructions: This note is constructed using voice recognition software. While every effort has been made to ensure accuracy oyster shucker errors may have been included. Imaging studies, laboratory and physical exam results were discussed and reviewed in detail. No major barriers to patient understanding were identified. An opportunity to ask questions regarding the treatment plan was provided. All questions were answered. The patient expressed understanding and agreement with the above treatment plan. The patient is aware they should contact our office by phone for worsening of their current condition or the appearance of new urologic symptoms. Compliance is encouraged with any medications and followup testing that is ordered. It is a privilege to participate in the urologic care of your patient. If you have any questions or concerns regarding treatment for the above conditions, or other urologic issues, please do not hesitate to contact me. The office telepho ne contact is [phone]. Sincerely, Dr Matthias Gray MD, [facility] - Urology Compassionate Specialist Care for the Genitourinary System Coding Level of Care Code Tele Est Pt Level 3 (50427) Diagnoses BPH w urinary obs/LUTS N40.1; N13.8 Elevated PSA R97.20
--- OUTSIDE RECORDS SUMMARY | 2025-06-04 09:10 | XMS_ITS | Patient Health Record ---
Author Organization [facility] [place] Address [address] [facility] [place] [address] Care Team Providers Care Hematology Nurse Name Role Phone Edwin Bradley Primary Care Provider Unavailab Osman Jeong Unavailable [phone] Allergies Allergen (clinical drug ingredient) Drug/Non Drug [...] atherosclerosis of arteries of lower limbs (disorder) ([id number] ) Atherosclerosis of [place] artery of both lower extremities, with unspecified presence of clinical manifestation (I70.203) Active confirmed Vital Signs Blood pressure diastolic 70 mm Hg 05/04/2025 Height 6ft 2in in 05/04/2025 Blood pressure systolic 126 mm Hg 05/04/2025 Weight 186 lbs 05/04/2025 BMI 23.88 kg/m2 05/04/2025 Procedures Procedure Date Ordered Date Performed Result Body Sit e 12697-LSIAHJG NAIL, 6 OR MORE 07/28/2024 N/A 47089-WHWJ SKIN LESIONS, OVER 4 07/28/2024 N/A 99419-WJWMRJG NAIL, 6 OR MORE 11/03/2024 N/A 34877-POCX SKIN LESIONS, OVER 4 11/03/2024 N/A 68948-USDOJIE NAIL, 6 OR MORE 02/02/2025 N/A 12820-ZXMY SKIN LESIONS, OVER 4 02/02/2025 N/A 08607-UGIZVOX NAIL, 6 OR MORE 05/04/2025 N/A 37117-YROI SKIN LESIONS, OVER 4 05/04/2025 N/A Encounters Encounter Location Date Provider Diagnosis [facility] [address] [address] 07/28/2024 Osman Blanc Atherosclerosis of [place] artery of both lower extremities, with unspecified presence of clinical manifestation I70.203 ; Tinea unguium B35.1 ; Pain in right toe(s) M79.674 and Pain in left toe(s) M79.[address] [facility] [address] 11/03/2024 Osman Blanc Atherosclerosis of [place] artery of both lower extremities, with unspecified presence of clinical manifestation I70.203 ; Tinea unguium B35.1 ; Pain in right toe(s) M79.674 and Pain in left toe(s) M79.[address] [address] 02/02/2025 Osman Hernandezunier Atherosclerosis of [place] artery of both lower extremities, with unspecified presence of clinical manifestation I70.203 ; Tinea unguium B35.1 ; Pain in right toe(s) M79.674 and Pain in left toe(s) M79.[address] [address] 05/04/2025 Osman Hernandezunier Atherosclerosis of [place] artery of both lower extremities, with unspecified presence of clinical manifestation I70.203 ; Tinea unguium B35.1 ; Pain in right toe(s) M79.674 ; Pain in left toe(s) M79.675 and Xerosis of skin L85.3 Assessments Encounter Date Diagnosis (ICD Code) Assessment Notes Treatment Notes Treatment Clinical Notes Section Notes 07/28/2024 Tinea unguium (ICD-10 - B35.1) 07/28/2024 Atherosclerosis of [place] artery of both lower extremities, with unspecified presence of clinical manifestation (ICD-10 - I70.203) 11/03/2024 Tinea unguium (ICD-10 - B35.1) 11/03/2024 Atherosclerosis of [place] artery of both lower extremities, with unspecified presence of clinical manifestation (ICD-10 - I70.203) 02/02/2025 Tinea unguium (ICD-10 - B35.1) 02/02/2025 Atherosclerosis of [place] artery of both lower extremities, with unspecified presence of clinical manifestation (ICD-10 - I70.203) 05/04/2025 Tinea unguium (ICD-10 - B35.1) 05/04/2025 Atherosclerosis of [place] artery of both lower extremities, with unspecified [...] Treatment Pending Test Test Name Order Date 20479-WCZNXTO NAIL, 6 OR MORE 04/10/2022 07556-EVHIZYM NAIL, 6 OR MORE 07/10/2022 34260-TINCDMK NAIL, 6 OR MORE 10/12/2022 95068-SULMSWK NAIL, 6 OR MORE 01/25/2023 08819-IDKNEVF NAIL, 6 OR MORE 04/23/2023 22187-YMIRBDF NAIL, 6 OR MORE 07/26/2023 51104-NXACXEK NAIL, 6 OR MORE 11/01/2023 45108-ORKHQNE NAIL, 6 OR MORE 01/31/2024 84763-LAIMPZT NAIL, 6 OR MORE 05/05/2024 81760-OJNDLST NAIL, 6 OR MORE 07/28/2024 97430-BUTFXJP NAIL, 6 OR MORE 11/03/2024 13752-HUCSXPX NAIL, 6 OR MORE 02/02/2025 01364-HPMOCBW NAIL, 6 OR MORE 05/04/2025 33894-BKMH SKIN LESIONS, OVER 4 05/04/20 25 58989-QFHP SKIN LESIONS, OVER 4 02/03/20 25 11391-DCXH SKIN LESIONS, OVER 4 11/03/19 25 73998-MAYS SKIN LESIONS, OVER 4 07/28/20 24 38479-JMZP SKIN LESIONS, OVER 4 05/05/20 24 07318-DSCW SKIN LESIONS, OVER 4 01/31/20 24 54225-YUXM SKIN LESIONS, OVER 4 11/01/19 24 94949-GSLP SKIN LESIONS, OVER 4 07/26/20 23 62630-UZGD SKIN LESIONS, OVER 4 04/23/20 23 99628-SOXB SKIN LESIONS, OVER 4 01/26/20 23 05385-CNSG SKIN LESIONS, OVER 4 10/12/20 22 45166-JQSY SKIN LESIONS, OVER 4 07/10/20 22 45992-AJKG SKIN LESIONS, OVER 4 04/10/20 Next Appt Details Provider Name:Osman Blanc , 08/03/2025 09:00:00 AM, [address] [place], [address], Insurance Providers Payer Name Payer Address Payer Phone Subscriber Number Group Number Insured Name Patient Relationship to Insured Coverage Start Date Coverage End Date [employer] Medicare [id number] [address] [address] [place] [address] [id number] Lynette Sanchez Self - patient is the insured Medical (General) History Medical History History ICD Code high blood pressure measles chicken pox bone implants Joint implants/screws Cholesterol Surgical History Surgery Date(Month/Year) right hip surgery 07/2015 Hospitalization History Reason Date(Month/Year) [facility] [place]- Unknown Headache Ede natalie for 5 days same day took off med simvastatin 12/25/22
--- OUTSIDE RECORDS SUMMARY | 2025-06-04 09:11 | XMS_ITS | Patient Health Record ---
Author Organization [facility] Address [address] [place] [address] Care Team Providers Care Shoe Parts Molder Name Role Phone Wenceslao MALHOTRA, Kleber Primary Care Provider Michael Daily [phone] Allergies Allergen (clinical drug ingredient) Drug/Non Drug [...] Problem Status W/U Status Risk Notes Problem 223290913 Encounter for screening for malignant neoplasm of colon (Z12.11) Active confirmed Problem 468319678 Elevated liver function tests (R79.89) Active confirmed Problem 062831993227117 Preprocedural examination (Z01.818) Active confirmed Problem 936009177 Alcohol-induced acute pancreatitis, 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 screening colonoscopy in 08/2010 an d in 10/2020 Pancreatitis in 2018 due to EtOH Diverticulosis Aseptic necrosis R/hip Surgical History Surgery Date(Month/Year) Right hip replacement 08/2005 Tonsillectomy
== END 2025-06-04 09:45 | disposition home or self-care (01) ==
LOC: HO.HUSH 08:58
PROVIDERS: PCP Physician Assistant; Visit Provider Urology
DX: N40.1 Benign prostatic hyperplasia with lower urinary tract symptoms (principal); N13.8 Other obstructive and reflux uropathy; R97.20 Elevated prostate specific antigen [PSA]
CPT/HCPCS: 99213

== ENCOUNTER 2025-06-08 13:00 | Outpatient (REF) | payer MEDICARE, SELFPAY ==
--- OUTSIDE RECORDS SUMMARY | 2025-06-08 13:49 | XMS_ITS | Patient Health Record ---
Author Organization [facility] Address [address] [place] [address] Care Team Providers Care Ladle Watcher Name Role Phone Wenceslao MALHOTRA, Kleber Primary Care Provider Michael Daily [phone] Allergies Allergen (clinical drug ingredient) Drug/Non Drug [...] Problem Status W/U Status Risk Notes Problem [id number] Encounter for screening for malignant neoplasm of colon (Z12.11) Active confirmed Problem 499529994 Elevated liver function tests (R79.89) Active confirmed Problem 011707093151593 Preprocedural examination (Z01.818) Active confirmed Problem 307211455 Alcohol-induced acute pancreatitis, 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 [address] [address] [place] [address] [id number] [employer] Self - patient is the insured Medical (General) History Medical History History ICD Code Denies [place],DM,CVA,Lung disease,renal dise ase HTN Hyperlipidemia Neg. screening colonoscopy in 08/2010 an d in 10/2020 Pancreatitis in 2018 due to EtOH Diverticulosis Aseptic necrosis R/hip Surgical History Surgery Date(Month/Year) Right hip replacement 08/2005 Tonsillectomy
--- OUTSIDE RECORDS SUMMARY | 2025-06-08 13:49 | XMS_ITS | Patient Health Record ---
Author Organization [facility] Address [address] [address] Care Team Providers Care Joint Special Operations Name Role Phone Edwin Bradley Primary Care Provider Unavailab Osman Jeong Unavailable [phone] Allergies Allergen (clinical drug ingredient) Drug/Non Drug [...] atherosclerosis of arteries of lower limbs (disorder) ([id number] ) Atherosclerosis of [place] artery of both lower extremities, with unspecified presence of clinical manifestation (I70.203) Active confirmed Vital Signs Blood pressure diastolic 70 mm Hg 05/04/2025 Height 6ft 2in in 05/04/2025 Blood pressure systolic 126 mm Hg 05/04/2025 Weight 186 lbs 05/04/2025 BMI 23.88 kg/m2 05/04/2025 Procedures Procedure Date Ordered Date Performed Result Body Sit e 51358-ZWYCKHV NAIL, 6 OR MORE 07/28/2024 N/A 42433-HDXN SKIN LESIONS, OVER 4 07/28/2024 N/A 43024-TSRZHZT NAIL, 6 OR MORE 11/03/2024 N/A 36202-JSBY SKIN LESIONS, OVER 4 11/03/2024 N/A 60735-VOFDIZI NAIL, 6 OR MORE 02/02/2025 N/A 48139-GOTK SKIN LESIONS, OVER 4 02/02/2025 N/A 17860-DHTHAOX NAIL, 6 OR MORE 05/04/2025 N/A 89836-ETCM SKIN LESIONS, OVER 4 05/04/2025 N/A Encounters Encounter Location Date Provider Diagnosis [facility] [address] [address] 07/28/2024 Osman Blanc Atherosclerosis of [place] artery of both lower extremities, with unspecified presence of clinical manifestation I70.203 ; Tinea unguium B35.1 ; Pain in right toe(s) M79.674 and Pain in left toe(s) M79.[address] [facility] [address] 11/03/2024 Osman Blanc Atherosclerosis of [place] artery of both lower extremities, with unspecified presence of clinical manifestation I70.203 ; Tinea unguium B35.1 ; Pain in right toe(s) M79.674 and Pain in left toe(s) M79.[address] [address] 02/02/2025 Osman Hernandezunier Atherosclerosis of [place] artery of both lower extremities, with unspecified presence of clinical manifestation I70.203 ; Tinea unguium B35.1 ; Pain in right toe(s) M79.674 and Pain in left toe(s) M79.[address] [address] 05/04/2025 Osman Hernandezunier Atherosclerosis of [place] artery of both lower extremities, with unspecified presence of clinical manifestation I70.203 ; Tinea unguium B35.1 ; Pain in right toe(s) M79.674 ; Pain in left toe(s) M79.675 and Xerosis of skin L85.3 Assessments Encounter Date Diagnosis (ICD Code) Assessment Notes Treatment Notes Treatment Clinical Notes Section Notes 07/28/2024 Tinea unguium (ICD-10 - B35.1) 07/28/2024 Atherosclerosis of [place] artery of both lower extremities, with unspecified presence of clinical manifestation (ICD-10 - I70.203) 11/03/2024 Tinea unguium (ICD-10 - B35.1) 11/03/2024 Atherosclerosis of [place] artery of both lower extremities, with unspecified presence of clinical manifestation (ICD-10 - I70.203) 02/02/2025 Tinea unguium (ICD-10 - B35.1) 02/02/2025 Atherosclerosis of [place] artery of both lower extremities, with unspecified presence of clinical manifestation (ICD-10 - I70.203) 05/04/2025 Tinea unguium (ICD-10 - B35.1) 05/04/2025 Atherosclerosis of [place] artery of both lower extremities, with unspecified [...] Treatment Pending Test Test Name Order Date 18298-BHSEDZG NAIL, 6 OR MORE 04/10/2022 82742-LEEWAXM NAIL, 6 OR MORE 07/10/2022 56120-HEUNJRU NAIL, 6 OR MORE 10/12/2022 55367-ZFABLZN NAIL, 6 OR MORE 01/25/2023 60262-YEJGJXE NAIL, 6 OR MORE 04/23/2023 35846-KFPYHHI NAIL, 6 OR MORE 07/26/2023 59310-VIOFXXQ NAIL, 6 OR MORE 11/01/2023 55357-KQOYMZZ NAIL, 6 OR MORE 01/31/2024 92283-SXGQUBU NAIL, 6 OR MORE 05/05/2024 23301-EDYZCME NAIL, 6 OR MORE 07/28/2024 97052-JSDUGFB NAIL, 6 OR MORE 11/03/2024 12358-ABIRPQL NAIL, 6 OR MORE 02/02/2025 34419-DCVRKMN NAIL, 6 OR MORE 05/04/2025 61475-CTXD SKIN LESIONS, OVER 4 05/04/20 25 75789-AREH SKIN LESIONS, OVER 4 02/03/20 25 95535-WPDF SKIN LESIONS, OVER 4 11/03/19 25 54912-QMAL SKIN LESIONS, OVER 4 07/28/20 24 56314-JCMS SKIN LESIONS, OVER 4 05/05/20 24 08666-TFUA SKIN LESIONS, OVER 4 01/31/20 24 88646-NQMV SKIN LESIONS, OVER 4 11/01/19 24 33317-GFDQ SKIN LESIONS, OVER 4 07/26/20 23 35424-PRNG SKIN LESIONS, OVER 4 04/23/20 23 17432-PARD SKIN LESIONS, OVER 4 01/26/20 23 78397-CMYQ SKIN LESIONS, OVER 4 10/12/20 22 06469-PIJE SKIN LESIONS, OVER 4 07/10/20 22 89396-GFCV SKIN LESIONS, OVER 4 04/10/20 Next Appt Details Provider Name:Osman Blanc , 08/03/2025 09:00:00 AM, [address] [place], [address], Insurance Providers Payer Name Payer Address Payer Phone Subscriber Number Group Number Insured Name Patient Relationship to Insured Coverage Start Date Coverage End Date [employer] Medicare [id number] [address] [address] [place] [address] [id number] Lynette Sanchez Self - patient is the insured Medical (General) History Medical History History ICD Code high blood pressure measles chicken pox bone implants Joint implants/screws Cholesterol Surgical History Surgery Date(Month/Year) right hip surgery 07/2015 Hospitalization History Reason Date(Month/Year[place] [facility] [place] Headache Ede natalie for 5 days same day took off med simvastatin 12/25/22
[2025-06-08 14:04] LABS: Iron 100 mcg/dL (45-160); Percent Iron Saturation 37 % (15-50); Total Iron Binding Capacity 272 mcg/dL (228-428); Unsaturated Iron Binding 172 ug/dL
== END 2025-06-08 13:01 | disposition home or self-care (01) ==
LOC: HO.LAB 13:00
PROVIDERS: Visit Provider Physician Assistant
DX: D50.9 Iron deficiency anemia, unspecified (principal)
CPT/HCPCS: 36415; 83540

== ENCOUNTER 2025-06-17 15:31 | Outpatient (AMB) | payer MEDICARE, SELFPAY ==
--- OUTSIDE RECORDS SUMMARY | 2025-06-17 15:34 | XMS_ITS | Patient Health Record ---
Author Organization [facility] Address [address] [place] [address] Care Team Providers Care Crop Setting Out Machine Operator Name Role Phone Wenceslao MALHOTRA, Kleber Primary Care Provider Michael Daily [phone] Allergies Allergen (clinical drug ingredient) Drug/Non Drug [...] Problem Status W/U Status Risk Notes Problem [id number] Encounter for screening for malignant neoplasm of colon (Z12.11) Active confirmed Problem 718518480 Elevated liver function tests (R79.89) Active confirmed Problem [id number] Preprocedural examination (Z01.818) Active confirmed Problem [id number] Alcohol-induced acute pancreatitis, 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) Active confirmed Plan Of Treatment Pending Test Test Name Order Date LIVER PROFILE 02/28/2023 US ABD 02/28/2023 Future Test Test Name Order Date COLONOSCOPY 11/10/2020 Insurance Providers Payer Name Payer Address Payer Phone Subscriber Number Group Number Insured Name Patient Relationship to Insured Coverage Start Date Coverage End Date [facility] [address] [address] [place] [address] [id number] [employer] Self - patient is the insured Medical (General) History Medical History History ICD Code Denies DE,DM,CVA,Lung disease,renal dise ase HTN Hyperlipidemia Neg. screening colonoscopy in 08/2010 an d in 10/2020 Pancreatitis in 2018 due to EtOH Diverticulosis Aseptic necrosis R/hip Surgical History Surgery Date(Month/Year) Right hip replacement 08/2005 Tonsillectomy
--- OUTSIDE RECORDS SUMMARY | 2025-06-17 15:34 | XMS_ITS | Patient Health Record ---
Author Organization 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 Name Role Phone Edwin Bradley Primary Care Provider Unavailab Osman Jeong Unavailable [phone] Allergies Allergen (clinical drug ingredient) Drug/Non Drug [...] Unknown 09/09/2021 Administered 1st 12/07/2020 2nd 01/04/2021 Influenza Unknown 07/28/2024 Administered Social History Tobacco Use: Social History [...] atherosclerosis of arteries of lower limbs (disorder) ([id number] ) Atherosclerosis of kake artery of both lower extremities, with unspecified presence of clinical manifestation (I70.203) Active confirmed Vital Signs Blood pressure diastolic 70 mm Hg 05/04/2025 Height 6ft 2in in 05/04/2025 Blood pressure systolic 126 mm Hg 05/04/2025 Weight 186 lbs 05/04/2025 BMI 23.88 kg/m2 05/04/2025 Procedures Procedure Date Ordered Date Performed Result Body Sit e 77230-JPLTGUZ NAIL, 6 OR MORE 07/28/2024 N/A 33026-UILD SKIN LESIONS, OVER 4 07/28/2024 N/A 34592-VXFZNNH NAIL, 6 OR MORE 11/03/2024 N/A 99679-BYOR SKIN LESIONS, OVER 4 11/03/2024 N/A 00772-BTFBKRK NAIL, 6 OR MORE 02/02/2025 N/A 38282-JYGB SKIN LESIONS, OVER 4 02/02/2025 N/A 52829-GXFEOQZ NAIL, 6 OR MORE 05/04/2025 N/A 95185-GHFR SKIN LESIONS, OVER 4 05/04/2025 N/A Encounters Encounter Location Date Provider Diagnosis [facility] [address] [address] 07/28/2024 Osman Blanc Atherosclerosis of kake artery of both lower extremities, with unspecified presence of clinical manifestation I70.203 ; Tinea unguium B35.1 ; Pain in right toe(s) M79.674 and Pain in left toe(s) M79.[address] [facility] [address] 11/03/2024 Osman Blanc Atherosclerosis of kake artery of both lower extremities, with unspecified presence of clinical manifestation I70.203 ; Tinea unguium B35.1 ; Pain in right toe(s) M79.674 and Pain in left toe(s) M79.[address] [address] 02/02/2025 Osman Hernandezunier Atherosclerosis of kake artery of both lower extremities, with unspecified presence of clinical manifestation I70.203 ; Tinea unguium B35.1 ; Pain in right toe(s) M79.674 and Pain in left toe(s) M79.[address] [address] 05/04/2025 Osman Hernandezunier Atherosclerosis of kake artery of both lower extremities, with unspecified presence of clinical manifestation I70.203 ; Tinea unguium B35.1 ; Pain in right toe(s) M79.674 ; Pain in left toe(s) M79.675 and Xerosis of skin L85.3 Assessments Encounter Date Diagnosis (ICD Code) Assessment Notes Treatment Notes Treatment Clinical Notes Section Notes 07/28/2024 Tinea unguium (ICD-10 - B35.1) 07/28/2024 Atherosclerosis of kake artery of both lower extremities, with unspecified presence of clinical manifestation (ICD-10 - I70.203) 11/03/2024 Tinea unguium (ICD-10 - B35.1) 11/03/2024 Atherosclerosis of kake artery of both lower extremities, with unspecified presence of clinical manifestation (ICD-10 - I70.203) 02/02/2025 Tinea unguium (ICD-10 - B35.1) 02/02/2025 Atherosclerosis of kake artery of both lower extremities, with unspecified presence of clinical manifestation (ICD-10 - I70.203) 05/04/2025 Tinea unguium (ICD-10 - B35.1) 05/04/2025 Atherosclerosis of kake artery of both lower extremities, with unspecified [...] Treatment Pending Test Test Name Order Date 73666-LYMWXZJ NAIL, 6 OR MORE 04/10/2022 18657-ZPXRTSH NAIL, 6 OR MORE 07/10/2022 10024-CMWOKEU NAIL, 6 OR MORE 10/12/2022 77249-QOZBOOR NAIL, 6 OR MORE 01/25/2023 36651-HULRFZT NAIL, 6 OR MORE 04/23/2023 09390-FOJLKTR NAIL, 6 OR MORE 07/26/2023 63058-RGWFPTR NAIL, 6 OR MORE 11/01/2023 25326-CXQUPOY NAIL, 6 OR MORE 01/31/2024 35975-FBQPVGG NAIL, 6 OR MORE 05/05/2024 77803-ZHWLAMG NAIL, 6 OR MORE 07/28/2024 06766-UGJDTER NAIL, 6 OR MORE 11/03/2024 16154-QHSPZYG NAIL, 6 OR MORE 02/02/2025 49249-BGXYZIE NAIL, 6 OR MORE 05/04/2025 35913-JBPQ SKIN LESIONS, OVER 4 05/04/20 25 77369-JXCH SKIN LESIONS, OVER 4 02/03/20 25 25219-SBPV SKIN LESIONS, OVER 4 11/03/19 25 61918-CEQQ SKIN LESIONS, OVER 4 07/28/20 24 78205-GGHG SKIN LESIONS, OVER 4 05/05/20 24 41212-OECV SKIN LESIONS, OVER 4 01/31/20 24 40135-FRVV SKIN LESIONS, OVER 4 11/01/19 24 35751-HOSD SKIN LESIONS, OVER 4 07/26/20 23 17524-YBTF SKIN LESIONS, OVER 4 04/23/20 23 82668-XWSJ SKIN LESIONS, OVER 4 01/26/20 23 28751-ICAQ SKIN LESIONS, OVER 4 10/12/20 22 01844-IRHO SKIN LESIONS, OVER 4 07/10/20 22 74621-NNFU SKIN LESIONS, OVER 4 04/10/20 Next Appt Details Provider Name:Osman Blanc , 08/03/2025 09:00:00 AM, [address] [place], [address], Insurance Providers Payer Name Payer Address Payer Phone Subscriber Number Group Number Insured Name Patient Relationship to Insured Coverage Start Date Coverage End Date [employer] Medicare Adv-[id number] [address] [address] [place] [address] [id number] Lynette Sanchez Self - patient is the insured Medical (General) History Medical History History ICD Code high blood pressure measles chicken pox bone implants Joint implants/screws Cholesterol Surgical History Surgery Date(Month/Year) right hip surgery 07/2015 Hospitalization History Reason Date(Month/Year) [facility] Headache Ede natalie for 5 days same day took off med simvastatin 12/25/22
== END 2025-06-17 15:32 | disposition home or self-care (01) ==
LOC: HO.HMGAL 15:31
PROVIDERS: PCP Physician Assistant; Visit Provider Registered Nurse Emergency
DX: J30.89 Other allergic rhinitis (principal)
CPT/HCPCS: 95117; 95165

== ENCOUNTER 2025-06-30 09:32 | Outpatient (AMB) | payer MEDICARE, SELFPAY ==
--- OUTSIDE RECORDS SUMMARY | 2025-04-19 10:00 | XMS_ITS | Encounter Summary ---
Author Name [facility] [place] [facility] [place] Address [address] [place] [id number] Care Team Providers Care Concrete Building Assembler Name Role Phone YANETH JOE Primary Care [...] Policy 's Name Patient's Relationship to Policy [facility] (WNR) MEDICARE ADVANTAGE [facility] (WNR) Oct 28, 2019 [id number] TUTU,JE JONAS PATIENT Selected Encounter This section includes the information on record at [place] for the Encounter. Date/Time Encounter Type Encounter Description Reason Provider Source Apr 19, 2025 02:00 PM GROUP PS[facility]CHOTHERAPY [facility] ICD-10-CM F43.10 Post-traumatic stress disorder, unspecified MARK,ZEUS IE IHE Encounter Template Text not used by [place] Assessments - Encounter Diagnoses This section includes the primary and secondary diagnoses documented for the Encounter. Date/Time Primary/Secondary Diagnosis Diagnosis Name Provider Source Apr 27, 2025 08:14 AM PRIMARY Post-traumatic stress disorder, unspecified MARK,JAQUELIN E [facility] Plan of Treatment: Future Appointments (+ 6 months) and Future Tests (+/- 45 days) The Plan of Treatment section includes future care activities for the patient from all [place] [facility]. This section includes future appointments and future orders which are active, pending or scheduled. Future Appointments This section includes appointments that were scheduled to occur 6 months from the date of the Encounter, up to a maximum of 20 appointments. The data comes from all [place] treatment facilities. Appointment Date/Time Appointment Type Appointme nt Facility Name Apr 26, 2025 02:00 PM AMBULATORY [place]ATRY [place] [facility] [place] [facility] May 03, 2025 02:00 PM AMBULATORY [place]ATRY [place] [facility] [place] [facility] May 10, 2025 02:00 PM AMBULATORY - [place]ATRY [place] [facility] [place] [facility] May 17, 2025 02:00 PM AMBULATORY - [place]IATRY [place] [facility] [place] [facility] May 24, 2025 02:00 PM AMBULATORY - [place]IATRY [place] [facility] [place] [facility] May 31, 2025 02:00 PM AMBULATORY - PS[place]IATRY [place] [facility] [place] [facility] Jun 07, 2025 02:00 PM AMBULATORY - PS[place]IATRY [place] [facility] [place] [facility] Jun 14, 2025 02:00 PM AMBULATORY - [place]IATRY [place] [facility] [place] [facility] Jun 21, 2025 02:00 PM AMBULATORY - PS[place]IATRY [place] [facility] [place] [facility] Jul 15, 2025 07:45 AM AMBULATORY - MEDICINE [place] [facility] [place] [facility] Sep 09, 2025 08:00 AM AMBULATORY - MEDICINE [place] [facility] [place] [facility] Social History: Smoking Status (Most [...] Smoking Status Comment Facil ity March 09, 2025 08:30 AM VA-TOBACCO USE FOR [facility]IL [facility] Tobacco Use History This section includes a history of the smoking, or tobacco-related health factors, that were collected on or before the date of the Encounter. The data comes from the [place] facility where the Encounter took place. Date/Time Smoking Status/Tobac co Use Comment Facility March 09, 2025 08:30 AM VA-TOBACCO USE FORMER CIGARETTES [facility] [place] [facility] March 09, 2024 09:00 AM VA-TOBACCO FORMER USER [facility] [place] [facility] March 09, 2024 09:00 AM VA-TOBACCO QUIT 15 YRS OR MORE [facility] [place] [facility] March 18, 2023 02:30 PM VA-TOBACCO FORMER USER [facility] [place] [facility] March 18, 2023 02:30 PM VA-TOBACCO QUIT 15 YRS OR MORE [facility] [place] [facility] Jan 11, 2022 08:30 AM VA-TOBACCO FORMER USER [facility] [place] [facility] Jan 11, 2022 08:30 AM VA-TOBACCO QUIT 15 YRS OR MORE [facility] [place] [facility] Dec 26, 2020 09:00 AM VA-TOBACCO FORMER USER [facility] [place] [facility] Dec 26, 2020 09:00 AM VA-TOBACCO QUIT 15 YRS OR MORE [place] [facility] [place] [facility] Dec 08, 2019 09:16 AM VA-TOBACCO FORMER USER [facility] [place] [facility] Dec 08, 2019 09:16 AM VA-TOBACCO QUIT 15 YRS OR MORE [place] [facility] [place] [facility] Oct 14, 2018 02:56 PM VA-TOBACCO FORMER USER [facility] [place] [facility] Oct 14, 2018 02:56 PM VA-TOBACCO QUIT 15 YRS OR MORE [place] [facility] [place] [facility] Dec 12, 2017 09:20 AM QUIT TOBACCO USE > 7 YEARS AGO quit > 30 yrs ( 2-3 pks a day) [place] [facility] [place] [facility] Advance Directives: All historical and [...] Feb 09, 2019 ADVANCE DIRECTIVE VAN MORENO [facility] Feb 08, 2019 ADVANCE DIRECTIVE SAMM BRINK V [facility] Encounter Notes: All associated encounter notes This section contains the clinical notes associated to the Encounter. Date/Time Encounter Note(s) Provider Source Apr 19, 2025 02:00 PM SOCIAL WORK GROUP COUNSELING NOTE: LOCAL TITLE: SOCIAL WORK GROUP NOTE STANDARD TITLE: SOCIAL WORK GROUP COUNSELING NOTE DATE OF NOTE: APR 19, 2025@14:00 ENTRY DATE: APR 19, 2025@16:06:23 AUTHOR: MANDY FLORES COSIGNER: URGENCY: STATUS: COMPLETED This was a 60-minute supportive psychotherapy group for [employer] Veterans with PTSD. 7 members were present today. Topics discussed today included: [x ] health/mental health issues and concerns of members and loved ones [ x ] activities of daily living, including volunteering, socialization, trying of new activities, and family gatherings [x ] grief and loss, including of family, [...] support and feedback. Next group will be 04/26/25 reported he was doing well and expressed gratitude for his life. /gio/ MANDY FLORES [facility] CLINICAL RN ADMISSIONS Signed: 04/19/2025 16:12 MANDY FLORES [facility]
--- OUTSIDE RECORDS SUMMARY | 2025-04-19 10:30 | XMS_ITS ---
Author Name [facility] [place] [facility] [place] Organization [place] Address [address] [place] [id number] Care Team Providers Care Boat Laborer Name Role Phone YANETH JOE Primary Care [...] Policy 's Name Patient's Relationship to Policy [facility] ([facility] MEDICARE ADVANTAGE [facility] ([facility] Oct 28, 2019 [id number] IVANA CAM PATIENT Selected Encounter This section includes the information on record at [place] for the Encounter. Date/Time Encounter Type Encounter Description Reason Provider Source Apr 19, 2025 02:30 PM HEARING AID REPAIR/MODIFYING AUDIOLOGY ICD-10-CM Z46.1 Encounter for fitting and adjustment of hearing aid JIMENEZ KU Encounter Template Text not used by [place] Assessments - Encounter Diagnoses This section includes the primary and secondary diagnoses documented for the Encounter. Date/Time Primary/Secondary Diagnosis Diagnosis Name Provider Source Apr 19, 2025 02:51 PM PRIMARY Encounter for fitting and adjustment of hearing aid LINDA ARCHIBALD [place] [facility] [place] [facility] Apr 19, 2025 02:51 PM SECONDARY Sensorineural hearing loss, bilateral LINDA ARCHIBALD [place] [facility] [place] [facility] Plan of Treatment: Future Appointments (+ 6 months) and Future Tests (+/- 45 days) The Plan of Treatment section includes future care activities for the patient from all [place] treatmentfacilities. This section includes future appointments and future orders which are active, pending or scheduled. Future Appointments This section includes appointments that were scheduled to occur 6 months from the date of the Encounter, up to a maximum of 20 appointments. The data comes from all [place] treatment facilities. Appointment Date/Time Appointment Type Appointme nt Facility Name Apr 26, 2025 02:00 PM AMBULATORY [place]ATRY [place] [facility] [place] [facility] May 03, 2025 02:00 PM AMBULATORY - PS[place]IATRY [place] [facility] [place] [facility] May 10, 2025 02:00 PM AMBULATORY - PS[place]IATRY [place] [facility] [place] [facility] May 17, 2025 02:00 PM AMBULATORY - PS[place]IATRY [place] [facility] [place] [facility] May 24, 2025 02:00 PM AMBULATORY - [facility]IATRY [place] [facility] [place] [facility] May 31, 2025 02:00 PM AMBULATORY - PS[place]IATRY [place] [facility] [place] [facility] Jun 07, 2025 02:00 PM AMBULATORY - PS[place]IATRY [place] [facility] [place] [facility] Jun 14, 2025 02:00 PM AMBULATORY - PS[place]IATRY [place] [facility] [place] [facility] Jun 21, 2025 02:00 PM AMBULATORY - PS[place]IATRY [place] [facility] [place] [facility] Jul 15, 2025 07:45 AM AMBULATORY - MEDICINE [place] [facility] [place] [facility] Sep 09, 2025 08:00 AM AMBULATORY - MEDICINE [place] [facility] [place] [facility] Social History: Smoking Status (Most current) and Tobacco Use (All prior to encounter date) This section includes the most current, and the historical, smoking and tobacco- related health factors from the [facility] facility where the Encounter took place. Current Smoking Status This section includes the most current smoking, or tobacco-related health factor, from the [place] facility where the Encounter took place. Date/Time Current Smoking Status Comment Facil ity March 09, 2025 08:30 AM VA-TOBACCO USE FOR ABRIL CIGARETTES [place] [facility] [place] [facility] Tobacco Use History This section includes a history of the smoking, or tobacco-related health factors, that were collected on or before the date of the Encounter. The data comes from the [place] facility where the Encounter took place. Date/Time Smoking Status/Tobac co Use Comment Facility March 09, 2025 08:30 AM VA-TOBACCO USE FORMER CIGARETTES [place] [facility] [place] [facility] March 09, 2024 09:00 AM VA-TOBACCO FORMER USER [facility] [place] [facility] March 09, 2024 09:00 AM VA-TOBACCO QUIT 15 YRS OR MORE [place] [facility] [place] [facility] March 18, 2023 02:30 PM VA-TOBACCO FORMER USER [facility] [place] [facility] March 18, 2023 02:30 PM VA-TOBACCO QUIT 15 YRS OR MORE [place] [facility] [place] [facility] Jan 11, 2022 08:30 AM VA-TOBACCO FORMER USER [place] [facility] [place] [facility] Jan 11, 2022 08:30 AM VA-TOBACCO QUIT 15 YRS OR MORE [place] [facility] [place] [facility] Dec 26, 2020 09:00 AM VA-TOBACCO FORMER USER [place] [facility] [place] [facility] Dec 26, 2020 09:00 AM VA-TOBACCO QUIT 15 YRS OR MORE [place] [facility] [place] [facility] Dec 08, 2019 09:16 AM VA-TOBACCO FORMER USER [place] [facility] [place] [facility] Dec 08, 2019 09:16 AM VA-TOBACCO QUIT 15 YRS OR MORE [place] [facility] [place] [facility] Oct 14, 2018 02:56 PM VA-TOBACCO FORMER USER [place] [facility] [place] [facility] Oct 14, 2018 02:56 PM VA-TOBACCO QUIT 15 YRS OR MORE [place] [facility] [place] [facility] Dec 12, 2017 09:20 AM QUIT TOBACCO USE > 7 YEARS AGO quit > 30 yrs ( 2-3 pks a day) [place] [facility] [place] [facility] Advance Directives: All historical and current Section Date Range: From patient's date of to the date document was created. This section includes ALL of a patient's completed or amended VA Advance and Rescinded Directives. The entries below indicate that a directive exists for the patient, but an actual copy is not included with this document. The data comes from all [place] facilities. Date Advance Directives Provider Source Feb 09, 2019 ADVANCE DIRECTIVE VAN MORENO [facility] Feb 08, 2019 ADVANCE DIRECTIVE SAMM BRINK V [facility] Encounter Notes: All associated encounter notes This section contains the clinical notes associated to the Encounter. Date/Time Encounter Note(s) Provider Source Apr 19, 2025 08:00 AM AUDIOLOGY NOTE: LOCAL TITLE: AUDIOLOGY HEALTH QUALITY PROCESS ENGINEER STANDARD TITLE: AUDIOLOGY NOTE DATE OF NOTE: APR 19, 2025@08:00 ENTRY DATE: APR 19, 2025@08:00:59 AUTHOR: CHERI ARCHIBALD COSIGNER: JIMENEZ KU URGENCY: STATUS: COMPLETED April 19, 2025 History/Background: was seen for a hearing aid follow up, unaccompanied. The Tea presented today reporting his hearing aids are draining battery excessively. The noted he is replacing batteries every 2-3 hours daily. Hearing aids: [employer]!V AI RICs Serial Numbers: [id number] Battery size: 312 Date Issued: 03/18/2023 Hearing aid check: Both hearing aids were cleaned and checked. Replaced wax guards, rosa covers and batteries. Biologic check was good The Tea stated he requested new batteries about 1 weeks ago and has not received them yet. The will take his hearing aids home today with new batteries in them, he will check the expiration date on his current batteries he has at home and discard them if they are . 3 packs of new batteries were given to the to hold him over until his new order arrives. If the batteries continue to drain he will contact the clinic for a repair kit OR he will drop them off at the clinic to have them sent out. Plan: The Tea will contact the clinic if the hearing aids continue to drain excessively. He can either drop them off to have the Health tech ship them out or request a repair kit. /gio/ CHERI ARCHIBALD Audiology Health Bottom Cementer Signed: 04/19/2025 14:53 /gio/ Robert ROMERO, CCC-A Ship Fitter Chief, Audiology Cosigned: 04/19/2025 15:11 [facility]
--- OUTSIDE RECORDS SUMMARY | 2025-04-26 10:00 | XMS_ITS | Encounter Summary ---
Author Name [facility] [place]) Organization [facility] [place] Address [address] [place] [address] Care Team Providers Care Materials Associate Name Role Phone YANETH JOE Primary [...] Name Patient's Relationship to Policy [facility] (WNR) MEDICARE ADVANTAGE [facility] (WNR) Oct 28, 2019 [id number] TUTU,JE JONAS PATIENT Selected Encounter This section includes the information on record at OR for the Encounter. Date/Time Encounter Type Encounter Description Reason Provider Source Apr 26, 2025 02:00 PM GROUP PS[facility]CHOTHERAPY [facility] ICD-10-CM F43.10 Post-traumatic stress disorder, unspecified MARK,ZEUS IE IHE Encounter Template Text not used by OR Assessments - Encounter Diagnoses This section includes the primary and secondary diagnoses documented for the Encounter. Date/Time Primary/Secondary Diagnosis Diagnosis Name Provider Source Apr 26, 2025 04:22 PM PRIMARY Post-traumatic stress disorder, unspecified MARK[facility]QUEL[facility] E [facility] Plan of Treatment: Future Appointments (+ 6 months) and Future Tests (+/- 45 days) The Plan of Treatment section includes future care activities for the patient from all [facility]. This section includes future appointments and future orders which are active, pending or scheduled. Future Appointments This section includes appointments that were scheduled to occur 6 months from the date of the Encounter, up to a maximum of 20 appointments. The data comes from all [place] treatment facilities. Appointment Date/Time Appointment Type Appointme nt Facility Name May 03, 2025 02:00 PM AMBULATORY - PSYCHIATRY [place] [facility] [place] [facility] May 10, 2025 02:00 PM AMBULATORY - PSYCHIATRY [place] [facility] [place] [facility] May 17, 2025 02:00 PM AMBULATORY - PSYCHIATRY [place] [facility] [place] [facility] May 24, 2025 02:00 PM AMBULATORY - PSYCHIATRY [place] [facility] [place] [facility] May 31, 2025 02:00 PM AMBULATORY - PSYCHIATRY [place] [facility] [place] [facility] Jun 07, 2025 02:00 PM AMBULATORY - PSYCHIATRY [place] [facility] [place] [facility] Jun 14, 2025 02:00 PM AMBULATORY - PSYCHIATRY [place] [facility] [place] [facility] Jun 21, 2025 02:00 PM AMBULATORY - PSYCHIATRY [place] [facility] [place] [facility] Jul 15, 2025 07:45 AM AMBULATORY - MEDICINE [place] C [facility] [place] [facility] Sep 09, 2025 08:00 AM AMBULATORY - MEDICINE OR C [facility] [place] [facility] Social History: Smoking Status (Most [...] took place. Date/Time Current Smoking Status Comment [facility] March 09, 2025 08:30 AM VA-TOBACCO USE FOR ABRIL CIGARETTES [place] [facility] [place] [facility] Tobacco Use History This section includes a history of the smoking, or tobacco-related health factors, that were collected on or before the date of the Encounter. The data comes from the [place] facility where the Encounter took place. Date/Time Smoking Status/Tobac co Use Comment Facility March 09, 2025 08:30 AM VA-TOBACCO USE FORMER CIGARETTES [facility] [place] [facility] March 09, 2024 09:00 AM VA-TOBACCO FORMER USER [facility] [place] [facility] March 09, 2024 09:00 AM VA-TOBACCO QUIT 15 YRS OR MORE [facility] [place] [facility] March 18, 2023 02:30 PM VA-TOBACCO FORMER USER [facility] [place] [facility] March 18, 2023 02:30 PM VA-TOBACCO QUIT 15 YRS OR MORE [facility] [place] [facility] Jan 11, 2022 08:30 AM VA-TOBACCO FORMER USER [facility] [place] [facility] Jan 11, 2022 08:30 AM VA-TOBACCO QUIT 15 YRS OR MORE [facility] [place] [facility] Dec 26, 2020 09:00 AM VA-TOBACCO FORMER USER [facility] [place] [facility] Dec 26, 2020 09:00 AM VA-TOBACCO QUIT 15 YRS OR MORE OR [facility] [place] [facility] Dec 08, 2019 09:16 AM VA-TOBACCO FORMER USER [facility] [place] [facility] Dec 08, 2019 09:16 AM VA-TOBACCO QUIT 15 YRS OR MORE [facility] [place] [facility] Oct 14, 2018 02:56 PM VA-TOBACCO FORMER USER [facility] [place] [facility] Oct 14, 2018 02:56 PM VA-TOBACCO QUIT 15 YRS OR MORE [facility] [place] [facility] Dec 12, 2017 09:20 AM QUIT TOBACCO USE > 7 YEARS AGO quit > 30 yrs ( 2-3 pks a day) [place] [facility] [place] [facility] Advance Directives: All historical and current Section Date Range: From patient's date of to the date document was created. This section includes ALL of a patient's completed or amended [place] Advance and Rescinded Directives. The entries below indicate that a directive exists for the patient, but an actual copy is not included with this document. The data comes from all [place] facilities. Date Advance Directives Provider Source Feb 09, 2019 ADVANCE DIRECTIVE VAN MORENO [place] [facility] [place] [facility] Feb 08, 2019 ADVANCE DIRECTIVE SAMM BRINK [facility] Encounter Notes: All associated encounter notes This section contains the clinical notes associated to the Encounter. Date/Time Encounter Note(s) Provider Source Apr 26, 2025 02:00 PM SOCIAL WORK GROUP COUNSELING NOTE: LOCAL TITLE: SOCIAL WORK GROUP NOTE STANDARD TITLE: SOCIAL WORK GROUP COUNSELING NOTE DATE OF NOTE: APR 26, 2025@14:00 ENTRY DATE: APR 26, 2025@16:18:16 AUTHOR: MANDY FLORES COSIGNER: URGENCY: STATUS: COMPLETED [...] [ ] managing PTSD symptoms [ ] [place] specific resources [ ] anger management [x ] aging related issues including memory/cognitive decline. [ ] group dynamics, cohesion, and process related issues. Members provided one another with support and feedback. Next group will be 05/03/25 [place] shared how walking again has been helping him, and how he has to moderate to manage the pain. /gio/ MANDY FLORES [facility] CLINICAL MACHINIST SET UP Signed: 04/26/2025 16:22 [facility] FLORES [facility]
--- OUTSIDE RECORDS SUMMARY | 2025-05-17 10:00 | XMS_ITS | Encounter Summary ---
Author Name [facility] [place] Organization Department [place] Address [address] [place] [address] Care Team Providers Care Nurse Examiner Name Role Phone YANETH JOE Primary Care [...] Policy 's Name Patient's Relationship to Policy [facility] (WNR) MEDICARE ADVANTAGE [facility] (WNR) Oct 28, 2019 [id number] IVANA CAM JONAS PATIENT Selected Encounter This section includes the information on record at [place] for the Encounter. Date/Time Encounter Type Encounter Description Reason Provider Source May 17, 2025 02:00 PM GROUP PS[facility]CH[facility]APY [facility] ICD-10-CM F43.10 Post-traumatic stress disorder, unspecified MARK,ZEUS IE IHE Encounter Template Text not used by [place] Assessments - Encounter Diagnoses This section includes the primary and secondary diagnoses documented for the Encounter. Date/Time Primary/Secondary Diagnosis Diagnosis Name Provider Source May 17, 2025 04:11 PM PRIMARY Post-traumatic stress disorder, unspecified MARK,JAQUELIN E [facility] Plan of Treatment: Future Appointments (+ 6 months) and Future Tests (+/- 45 days) The Plan of Treatment section includes future care activities for the patient from all [place] [facility]. This section includes future appointments and future orders which are active, pending or scheduled. Future Appointments This section includes appointments that were scheduled to occur 6 months from the date of the Encounter, up to a maximum of 20 appointments. The data comes from all [place] treatment facilities. Appointment Date/Time Appointment Type Appointme nt Facility Name May 24, 2025 02:00 PM AMBULATORY - PSYCHIATRY [place] [facility] [place] [facility] May 31, 2025 02:00 PM AMBULATORY - PSYCHIATRY [place] [facility] [place] [facility] Jun 04, 2025 09:15 AM AMBULATORY - MEDICINE [place] C [facility] [place] [facility] Jun 07, 2025 02:00 PM AMBULATORY - PSYCHIATRY [place] [facility] [place] [facility] Jun 14, 2025 02:00 PM AMBULATORY - PSYCHIATRY [place] [facility] [place] [facility] Jun 21, 2025 02:00 PM AMBULATORY - PSYCHIATRY [place] [facility] [place] [facility] Jul 05, 2025 02:00 PM AMBULATORY - PSYCHIATRY [place] [facility] [place] [facility] Jul 12, 2025 02:00 PM AMBULATORY - PSYCHIATRY [place] [facility] [place] [facility] Jul 15, 2025 07:45 AM AMBULATORY - MEDICINE [place] C [facility] [place] [facility] Jul 19, 2025 02:00 PM AMBULATORY - PSYCHIATRY [place] [facility] [place] [facility] Jul 26, 2025 02:00 PM AMBULATORY - PSYCHIATRY [place] [facility] [place] [facility] Aug 02, 2025 02:00 PM AMBULATORY - PSYCHIATRY [place] [facility] [place] [facility] Aug 16, 2025 02:00 PM AMBULATORY - PSYCHIATRY [place] [facility] [place] [facility] Aug 23, 2025 02:00 PM AMBULATORY - PSYCHIATRY [place] [facility] [place] [facility] Aug 30, 2025 02:00 PM AMBULATORY - PSYCHIATRY [place] [facility] [place] [facility] Sep 09, 2025 08:00 AM AMBULATORY - MEDICINE [place] C [facility] [place] [facility] Active, Pending, and Scheduled Orders This section includes a listing of several types of active, pending, and scheduled orders, including clinic medications orders, diagnostic test orders, procedure orders and consult orders; where the start date of the order is 45 days before the date of the Encounter or 45 days after the date of theEncounter. The data comes from all [place] treatment facilities. Test Date/Time Test Type Test Details Facility Name Jun 02, 2025 02:06 PM Consult Order COMMUNITY CARE-UROLOGY Cons [employer] [place] [facility] [place] [facility] Social History: Smoking Status (Most current) [...] took place. Date/Time Current Smoking Status Comment [facility] March 09, 2025 08:30 AM VA-TOBACCO NEVER U SED OTHER [facility] Tobacco Use History This section includes a history of the smoking, or tobacco-related health factors, that were collected on or before the date of the Encounter. The data comes from the [place] facility where the Encounter took place. Date/Time Smoking Status/Tobac co Use Comment Facility March 09, 2025 08:30 AM VA-TOBACCO USE FORMER CIGARETTES [place] [facility] [place] [facility] March 09, 2024 09:00 AM VA-TOBACCO FORMER USER [place] [facility] [place] [facility] March 09, 2024 09:00 AM VA-TOBACCO QUIT 15 YRS OR MORE [place] [facility] [place] [facility] March 18, 2023 02:30 PM VA-TOBACCO FORMER USER [place] [facility] [place] [facility] March 18, 2023 02:30 PM VA-TOBACCO QUIT 15 YRS OR MORE [place] [facility] [place] [facility] Jan 11, 2022 08:30 AM VA-TOBACCO FORMER USER [place] [facility] [place] [facility] Jan 11, 2022 08:30 AM VA-TOBACCO QUIT 15 YRS OR MORE [place] [facility] [place] [facility] Dec 26, 2020 09:00 AM VA-TOBACCO FORMER USER [place] [facility] [place] [facility] Dec 26, 2020 09:00 AM VA-TOBACCO QUIT 15 YRS OR MORE [place] [facility] [place] [facility] Dec 08, 2019 09:16 AM VA-TOBACCO FORMER USER [place] [facility] [place] [facility] Dec 08, 2019 09:16 AM VA-TOBACCO QUIT 15 YRS OR MORE [facility] Oct 14, 2018 02:56 PM VA-TOBACCO FORMER USER [facility] Oct 14, 2018 02:56 PM VA-TOBACCO QUIT 15 YRS OR MORE [facility] Dec 12, 2017 09:20 AM QUIT TOBACCO USE > 7 YEARS AGO quit > 30 yrs ( 2-3 pks a day) [facility] Advance Directives: All historical and current Section [...] Feb 09, 2019 ADVANCE DIRECTIVE [facility] Feb 08, 2019 ADVANCE DIRECTIVE SAMM BRINK [facility] Encounter Notes: All associated encounter notes This section contains the clinical notes associated to the Encounter. Date/Time Encounter Note(s) Provider Source May 17, 2025 02:00 PM SOCIAL WORK GROUP COUNSELING NOTE: LOCAL TITLE: SOCIAL WORK GROUP NOTE STANDARD TITLE: SOCIAL WORK GROUP COUNSELING NOTE DATE OF NOTE: MAY 17, 2025@14:00 ENTRY DATE: MAY 17, 2025@16:06:23 AUTHOR: MANDY FLORES COSIGNER: URGENCY: STATUS: [...] and/or other veterans. [ x ] substance use/addictions, including coping skills to maintain sobriety or address recent use [ ] managing PTSD symptoms [ x ] specific resources [ ] anger management [ x ] aging related issues including memory/cognitive decline. [ ] group dynamics, cohesion, and process related issues. Members provided one another with support and feedback. Next group will be 05/24/25 shared he was doing well. He has not been walking anymore and reflected on how he knows it's good for him to do so. /gio/ MANDY FLORES [facility] CLINICAL RECREATIONAL VEHICLE RESORT MANAGER Signed: 05/17/2025 16:13 MANDY FLORES [facility]
--- OUTSIDE RECORDS SUMMARY | 2025-05-24 10:00 | XMS_ITS | Encounter Summary ---
Author Name [facility] [place] Address [address] [place] [id number] Care Team Providers Care Rubber Molder Name Role Phone YANETH JOE Primary Care [...] 's Name Patient's Relationship to Policy [facility] (WNR) MEDICARE ADVANTAGE [facility] (WNR) Oct 28, 2019 [id number] IVANA CAM JONAS PATIENT Selected Encounter This section includes the information on record at [place] for the Encounter. Date/Time Encounter Type Encounter Description Reason Provider Source May 24, 2025 02:00 PM GROUP PSYCHOTHERAPY [facility] ICD-10-CM F43.10 Post-traumatic stress disorder, unspecified MARK,ZEUS IE IHE Encounter Template Text not used by [place] Assessments - Encounter Diagnoses This section includes the primary and secondary diagnoses documented for the Encounter. Date/Time Primary/Secondary Diagnosis Diagnosis Name Provider Source May 24, 2025 04:18 PM PRIMARY Post-traumatic stress disorder, unspecified MARK,JAQUELIN E [facility] Plan of Treatment: Future Appointments (+ 6 months) and Future Tests (+/- 45 days) The Plan of Treatment section includes future care activities for the patient from all [place] [facility]. This section includes future appointments and future orders which are active, pending or scheduled. Future Appointments This section includes appointments that were scheduled to occur 6 months from the date of the Encounter, up to a maximum of 20 appointments. The data comes from all [place] treatment facilities. Appointment Date/Time Appointment Type Appointme nt Facility Name May 31, 2025 02:00 PM AMBULATORY [facility]ATRY [facility] [place] [facility] Jun 04, 2025 09:15 AM AMBULATORY - MEDICINE [place] [facility] [place] [facility] Jun 07, 2025 02:00 PM AMBULATORY - PS[facility]CHIATRY [facility] [place] [facility] Jun 14, 2025 02:00 PM AMBULATORY [facility] PS[facility]CHIATRY [facility] [place] [facility] Jun 21, 2025 02:00 PM AMBULATORY - PS[facility]CHIATRY [facility] [place] [facility] Jul 05, 2025 02:00 PM AMBULATORY - PS[facility]CHIATRY [facility] [place] [facility] Jul 12, 2025 02:00 PM AMBULATORY - PSYCHIATRY [facility] [place] [facility] Jul 15, 2025 07:45 AM AMBULATORY - MEDICINE [place] [facility] [place] [facility] Jul 19, 2025 02:00 PM AMBULATORY - PS[facility]CHIATRY [facility] [place] [facility] Jul 26, 2025 02:00 PM AMBULATORY - PS[facility]CHIATRY [facility] [place] [facility] Aug 02, 2025 02:00 PM AMBULATORY - PSYCHIATRY [facility] [place] [facility] Aug 16, 2025 02:00 PM AMBULATORY - PSYCHIATRY [facility] [place] [facility] Aug 23, 2025 02:00 PM AMBULATORY - PSYCHIATRY [facility] [place] [facility] Aug 30, 2025 02:00 PM AMBULATORY - PSYCHIATRY [facility] [place] [facility] Sep 09, 2025 08:00 AM AMBULATORY - MEDICINE [place] [facility] [place] [facility] Active, Pending, and Scheduled Orders [...] 02:06 PM Consult Order COMMUNITY CARE-UROLOGY Cons [place] [place] [facility] [place] [facility] Social History: Smoking Status [...] took place. Date/Time Current Smoking Status Comment [facility] it March 09, 2025 08:30 AM VA-TOBACCO NEVER U SED OTHER TYPE [place] [facility] [place] [facility] Tobacco Use History This section includes a history of the smoking, or tobacco-related health factors, that were collected on or before the date of the Encounter. The data comes from the [place] facility where the Encounter took place. Date/Time Smoking Status/Tobac co Use Comment [facility] March 09, 2025 08:30 AM VA-TOBACCO USE FORMER CIGARETTES [place] [facility] [place] [facility] March 09, 2024 09:00 AM VA-TOBACCO FORMER USER [place] [facility] [place] [facility] March 09, 2024 09:00 AM VA-TOBACCO QUIT 15 YRS OR MORE [facility] [place] [facility] March 18, 2023 02:30 PM VA-TOBACCO FORMER USER [facility] [place] [facility] March 18, 2023 02:30 PM VA-TOBACCO QUIT 15 YRS OR MORE [place] [facility] [place] [facility] Jan 11, 2022 08:30 AM VA-TOBACCO FORMER USER [facility] [place] [facility] Jan 11, 2022 08:30 AM VA-TOBACCO QUIT 15 YRS OR MORE [facility] [place] [facility] Dec 26, 2020 09:00 AM VA-TOBACCO FORMER USER [facility] [place] [facility] Dec 26, 2020 09:00 AM VA-TOBACCO QUIT 15 YRS OR MORE [place] [facility] [place] [facility] Dec 08, 2019 09:16 AM VA-TOBACCO [facility] Dec 08, 2019 09:16 AM VA-TOBACCO QUIT 15 YRS OR MORE [facility] Oct 14, 2018 02:56 PM [facility] Oct 14, 2018 02:56 PM VA-TOBACCO QUIT 15 YRS OR MORE [facility] Dec 12, 2017 09:20 AM QUIT TOBACCO USE > 7 YEARS AGO quit > 30 yrs ( 2-3 pks a day) [facility] Advance Directives: All historical and current [...] Feb 09, 2019 ADVANCE DIRECTIVE VAN MORENO [facility] Feb 08, 2019 ADVANCE DIRECTIVE SAMM BRINK V [facility] Encounter Notes: All associated encounter notes This section contains the clinical notes associated to the Encounter. Date/Time Encounter Note(s) Provider Source May 24, 2025 02:00 PM SOCIAL WORK GROUP COUNSELING NOTE: LOCAL TITLE: SOCIAL WORK GROUP NOTE STANDARD TITLE: SOCIAL WORK GROUP COUNSELING NOTE DATE OF NOTE: MAY 24, 2025@14:00 ENTRY DATE: MAY 24, 2025@16:13:51 AUTHOR: MANDY FLORES COSIGNER: URGENCY: STATUS: COMPLETED [...] to maintain sobriety or address recent use [x ] managing PTSD symptoms [ ] specific resources [ ] anger management [ x ] aging related issues including memory/cognitive decline. [ ] group dynamics, cohesion, and process related issues. Members provided one another with support and feedback. Next group will be 05/31/25 shared how taking breaks and doing things in moderation has helped with getting older. He said he continues not to do his morning walks but thinks he will return to it, and recognizes the importance of it to his health. /gio/ MANDY FLORES [facility] CLINICAL PSYCH SPECIALIST Signed: 05/24/2025 16:18 MANDY FLORES [facility]
--- OUTSIDE RECORDS SUMMARY | 2025-06-02 09:21 | XMS_ITS ---
Author Name [facility] [place] Organization [place] Address [address] [place] [address] Care Team Providers Care Mri Technician Name Role Phone YANETH JOE Primary [...] [facility] (WNR) MEDICARE ADVANTAGE [facility] (WNR) Oct 28, 2019 [id number] IVANA CAM PATIENT Selected Encounter This section includes the information on record at [place] for the Encounter. Date/Time Encounter Type Encounter Description Reason Pro vider Source Jun 02, 2025 01:21 PM Outpatient Encounter COMMUNITY CARE CONSULT IHE Encounter Template Text not used by VA Plan of Treatment: Future Appointments (+ 6 [...] 20 appointments. The data comes from all [place] treatment facilities. Appointment Date/Time Appointment Type Appointme nt Facility Name Jun 04, 2025 09:15 AM AMBULATORY - MEDICINE [facility] [place] [facility] Jun 07, 2025 02:00 PM AMBULATORY - PSYCHIATRY [facility] [place] [facility] Jun 14, 2025 02:00 PM AMBULATORY - PSYCHIATRY [facility] [place] [facility] Jun 21, 2025 02:00 PM AMBULATORY - PSYCHIATRY [facility] [place] [facility] Jul 05, 2025 02:00 PM AMBULATORY - PSYCHIATRY [facility] [place] [facility] Jul 12, 2025 02:00 PM AMBULATORY - PSYCHIATRY [facility] [place] [facility] Jul 15, 2025 07:45 AM AMBULATORY - MEDICINE [facility] [place] [facility] Jul 19, 2025 02:00 PM AMBULATORY - PSYCHIATRY [facility] [place] [facility] Jul 26, 2025 02:00 PM AMBULATORY - PSYCHIATRY [facility] [place] [facility] Aug 02, 2025 02:00 PM AMBULATORY - PSYCHIATRY [facility] [place] [facility] Aug 16, 2025 02:00 PM AMBULATORY - PSYCHIATRY [facility] [place] [facility] Aug 23, 2025 02:00 PM AMBULATORY - PSYCHIATRY [facility] [place] [facility] Aug 30, 2025 02:00 PM AMBULATORY - PSYCHIATRY [facility] [place] [facility] Sep 09, 2025 08:00 AM AMBULATORY - MEDICINE [place] [facility] [place] [facility] Active, Pending, and Scheduled Orders This section includes a listing of several types of active, pending, and scheduled orders, including clinic medications orders, diagnostic test orders, procedure orders and consult orders; where the start date of the order is 45 days before the date of the Encounter or 45 days after the date of theEncounter. The data comes from all [place] treatment facilities. Test Date/Time Test Type Test Details Facility Name Jun 02, 2025 02:06 PM Consult Order COMMUNITY CARE-UROLOGY Cons [employer] [place] [facility] [place] [facility] Social History: Smoking Status (Most current) and Tobacco Use (All prior to encounter date) This section includes the most current, and the historical, smoking and tobacco- related health factors from the [place] facility where the Encounter took place. Current Smoking Status This section includes the most current smoking, or tobacco-related health factor, from the [place] facility where the Encounter took place. Date/Time Current Smoking Status Comment Facil it March 09, 2025 08:30 AM VA-TOBACCO NEVER U SED OTHER TYPE [place] [facility] [place] [facility] Tobacco Use History This section includes a history of the smoking, or tobacco-related health factors, that were collected on or before the date of the Encounter. The data comes from the [place] facility where the Encounter took place. Date/Time Smoking Status/Tobac co Use Comment Facility March 09, 2025 08:30 AM VA-TOBACCO USE FORMER CIGARETTES [facility] [place] [facility] March 09, 2024 09:00 AM VA-TOBACCO FORMER USER [facility] [place] [facility] March 09, 2024 09:00 AM VA-TOBACCO QUIT 15 YRS OR MORE [place] [facility] [place] [facility] March 18, 2023 02:30 PM VA-TOBACCO FORMER USER [facility] [place] [facility] March 18, 2023 02:30 PM VA-TOBACCO QUIT 15 YRS OR MORE [place] [facility] [place] [facility] Jan 11, 2022 08:30 AM VA-TOBACCO FORMER USER [facility] [place] [facility] Jan 11, 2022 08:30 AM VA-TOBACCO QUIT 15 YRS OR MORE [facility] [place] [facility] Dec 26, 2020 09:00 AM VA-TOBACCO FORMER USER [facility] [place] [facility] Dec 26, 2020 09:00 AM VA-TOBACCO QUIT 15 YRS OR MORE [facility] [place] [facility] Dec 08, 2019 09:16 AM VA-TOBACCO FORMER USER [facility] [place] [facility] Dec 08, 2019 09:16 AM VA-TOBACCO QUIT 15 YRS OR MORE [facility] [place] [facility] Oct 14, 2018 02:56 PM VA-TOBACCO FORMER USER [facility] [place] [facility] Oct 14, 2018 02:56 PM VA-TOBACCO QUIT 15 YRS OR MORE [facility] [place] [facility] Dec 12, 2017 09:20 AM QUIT TOBACCO USE > 7 YEARS AGO quit > 30 yrs ( 2-3 pks a day) [facility] Advance Directives: All historical and current Section Date Range: From patient's date of to the date document was created. This section includes ALL of a patient's completed or amended [place] Advance and Rescinded Directives. The entries below indicate that a directive exists for the patient, but an actual copy is not included with this document. The data comes from all [place] facilities. Date Advance Directives Provider Source Feb 09, 2019 ADVANCE DIRECTIVE VAN MORENO [facility] Feb 08, 2019 ADVANCE DIRECTIVE SAMM BRINK [facility] Encounter Notes: All associated encounter notes This section contains the clinical notes associated to the Encounter. Date/Time Encounter Note(s) Provider Source Jun 02, 2025 01:22 PM NONVA NOTE: LOCAL TITLE: COMMUNITY CARE-REQUEST FOR SERVICE NOTE STANDARD TITLE: NONVA NOTE DATE OF NOTE: JUN 02, 2025@13:22 ENTRY DATE: JUN 02, 2025@13:22:06 AUTHOR: KEHINDE GARZA JR EXP COSIGNER: URGENCY: STATUS: COMPLETED COMMUNITY CARE-REQUEST FOR SERVICE NOTE Has ADDENDA Request for Services (RFS) documentation has been sent for scanning to [place] [facility] Community Care Consult: COMMUNITY CARE-urology Previous auth expires: 2025-05-25 Date sent to scanning: May A Request for Service (RFS) form [id number] has been received which includes the following: Care Requested:continuing care for elevated PSA ICD-10 Dx code: R97.20 Date VA received request: May Date service required: not specified by provider Requesting Community Provider Information: Name of Ordering Provider: [facility] urology Office:[facility] Urology Address, City, State: [address] [place] [address] mick jeffries MA ALERT PACT Please enter community care consult if PCP agrees /gio/ KEHINDE GARZA JR REGISTERED NURSE Signed: 06/02/2025 13:24 Receipt Acknowledged By: 06/02/2025 14:06 /gio/ Luis Alberto Duong MD Staff Physician for YANETH JOE 06/02/2025 ADDENDUM STATUS: COMPLETED Done. /es/ Luis Alberto Duong MD Staff Physician Signed: 06/02/2025 14:06 KE[facility]INDE GARZA [facility]
--- OUTSIDE RECORDS SUMMARY | 2025-06-07 10:00 | XMS_ITS | Encounter Summary ---
Author Name [facility] Organization [facility] Address [address] [place] [address] Care Team Providers Care Java Mobile Developer Name Role Phone YANETH JOE Primary Care [...] Policy 's Name Patient's Relationship to Policy [facility] (WNR) MEDICARE ADVANTAGE [facility] (R) Oct 28, 2019 [id number] IVANA CAM PATIENT Selected Encounter This section includes the information on record at [place] for the Encounter. Date/Time Encounter Type Encounter Description Reason Provider Source Jun 07, 2025 02:00 PM [facility] ICD-10-CM F43.12 Post-traumati c stress disorder, chronic MARK,JAQUELIN E IHE Encounter Template Text not used by [place] Assessments - Encounter Diagnoses This section includes the primary and secondary diagnoses documented for the Encounter. Date/Time Primary/Secondary Diagnosis Diagnosis Name Provider Source Jun 07, 2025 04:04 PM PRIMARY Post-traumatic stress disorder, chronic [facility] Plan of Treatment: Future Appointments (+ 6 months) and Future Tests (+/- 45 days) The Plan of Treatment section includes future care activities for the patient from [facility] This section includes future appointments and future orders which are active, pending or scheduled. Future Appointments This section includes appointments that were scheduled to occur 6 months from the date of the Encounter, up to a maximum of 20 appointments. The data comes from all [facility]. Appointment Date/Time Appointment Type Appointme nt Facility Name Jun 14, 2025 02:00 PM AMBULATORY - PS[facility]IATRY [facility] [place] [facility] Jun 21, 2025 02:00 PM AMBULATORY - PS[facility]IATRY [facility] [place] [facility] Jul 05, 2025 02:00 PM AMBULATORY - PS[facility]IAT[facility] [place] [facility] Jul 12, 2025 02:00 PM AMBULATORY PSYCHIATRY [facility] [place] [facility] Jul 15, 2025 07:45 AM AMBULATORY - MEDICINE [facility] [place] [facility] Jul 19, 2025 02:00 PM AMBULATORY - PSYCHIATRY [facility] [place] [facility] Jul 26, 2025 02:00 PM AMBULATORY - PS[facility]IATRY [facility] [place] [facility] Aug 02, 2025 02:00 PM AMBULATORY - PS[facility]CHIATRY [facility] [place] [facility] Aug 16, 2025 02:00 PM AMBULATORY - PS[facility]CHIATRY [facility] [place] [facility] Aug 23, 2025 02:00 PM AMBULATORY - PS[facility]IATRY [facility] [place] [facility] Aug 30, 2025 02:00 PM AMBULATORY - PS[facility]CHIATRY [facility] [place] [facility] Sep 09, 2025 08:00 AM AMBULATORY - MEDICINE [facility] [place] [facility] Active, Pending, and Scheduled Orders This section includes a listing of several types of active, pending, and scheduled orders, including clinic medications orders, diagnostic test orders, procedure orders and consult orders; where the start date of the order is 45 days before the date of the Encounter or 45 days after the date of the Encounter. The data comes from all [facility]. Test Date/Time Test Type Test Details Facility Name Jun 02, 2025 02:06 PM Consult Order COMMUNITY CARE-UROLOGY Cons Hiv Prevention Specialist's Choice [facility] [place] [facility] Social History: Smoking Status (Most current) and Tobacco Use (All prior to encounter date) This section includes the most current, and the historical, smoking and tobacco- related health factors from the [place] facility where the Encounter took place. Current Smoking Status This section includes the most current smoking, or tobacco-related health factor, from the [place] facility where the Encounter took place. Date/Time Current Smoking Status Comment Facil it March 09, 2025 08:30 AM VA-TOBACCO USE FOR ABRIL CIGARETTES [facility] Tobacco Use History This section includes a history of the smoking, or tobacco-related health factors, that were collected on or before the date of the Encounter. The data comes from the [place] facility where the Encounter took place. Date/Time Smoking Status/Tobac co Use Comment Facility March 09, 2025 08:30 AM VA-TOBACCO USE FORMER CIGARETTES [facility] [place] [facility] March 09, 2024 09:00 AM VA-TOBACCO FORMER USER [facility] [place] [facility] March 09, 2024 09:00 AM VA-TOBACCO QUIT 15 YRS OR MORE [facility] [place] [facility] March 18, 2023 02:30 PM VA-TOBACCO FORMER USER [facility] [place] [facility] March 18, 2023 02:30 PM VA-TOBACCO QUIT 15 YRS OR MORE [facility] [place] [facility] Jan 11, 2022 08:30 AM VA-TOBACCO FORMER USER [facility] [place] [facility] Jan 11, 2022 08:30 AM VA-TOBACCO QUIT 15 YRS OR MORE [facility] [place] [facility] Dec 26, 2020 09:00 AM VA-TOBACCO FORMER USER [facility] [place] [facility] Dec 26, 2020 09:00 AM VA-TOBACCO QUIT 15 YRS OR MORE [facility] [place] [facility] Dec 08, 2019 09:16 AM VA-TOBACCO FORMER USER [facility] [place] [facility] Dec 08, 2019 09:16 AM VA-TOBACCO QUIT 15 YRS OR MORE [facility] [place] [facility] Oct 14, 2018 02:56 PM VA-TOBACCO FORMER USER [facility] [place] [facility] Oct 14, 2018 02:56 PM VA-TOBACCO QUIT 15 YRS OR MORE [facility] Dec 12, 2017 09:20 AM QUIT TOBACCO USE > 7 YEARS AGO quit > 30 yrs ( 2-3 pks a day) [facility] Advance Directives: All historical and current Section Date Range: From patient's date of to the date document was created. This section includes ALL of a patient's completed or amended [place] Advance and Rescinded Directives. The entries below indicate that a directive exists for the patient, but an actual copy is not included with this document. The data comes from all [place] facilities. Date Advance Directives Provider Source Feb 09, 2019 ADVANCE DIRECTIVE TIFFANIEVAN Dow [facility] Feb 08, 2019 ADVANCE DIRECTIVE KEENASAMM ZEV Sierra [facility] Encounter Notes: All associated encounter notes This section contains the clinical notes associated to the Encounter. Date/Time Encounter Note(s) Provider Source Jun 07, 2025 02:00 PM SOCIAL WORK GROUP COUNSELING NOTE: LOCAL TITLE: SOCIAL WORK GROUP NOTE STANDARD TITLE: SOCIAL WORK GROUP COUNSELING NOTE DATE OF NOTE: JUN 07, 2025@14:00 ENTRY DATE: JUN 07, 2025@15:57:18 AUTHOR: MANDY FLORES EXP COSIGNER: URGENCY: STATUS: COMPLETED This was a 60-minute supportive psychotherapy group for [employer] Veterans with PTSD. 6 members were present today. Topics discussed today [...] [ ] managing PTSD symptoms [ ] [place] specific resources [ ] anger management [x ] aging related issues including memory/cognitive decline. [ ] group dynamics, cohesion, and process related issues. Members provided one another with support and feedback. Next group will be 06/14/25 reported he continues to do his morning walk, though not daily. He shared his perspective on the group topic about the change in generations. /gio/ MANDY FLORES [facility] ORDER ADMINISTRATOR Signed: 06/07/2025 16:04 [facility] FLORES [facility]
--- OUTSIDE RECORDS SUMMARY | 2025-06-14 10:00 | XMS_ITS | Encounter Summary ---
Author Name [facility] [place] [facility] [place] [facility] [place] Address [address] [place] [id number] Care Team Providers Care Neuroradiologist Name Role Phone YANETH JOE Primary Care [...] 's Name Patient's Relationship to Policy [facility] (WNR) MEDICARE ADVANTAGE PAT[facility]'S CHOICE [facility] ([place]) Oct 28, 2019 [id number] IVANA CAM JONAS PATIENT Selected Encounter This section includes the information on record at [place] for the Encounter. Date/Time Encounter Type Encounter Description Reason Provider Source Jun 14, 2025 02:00 PM [facility] ICD-10-CM F43.10 Post-traumatic stress disorder, unspecified MARK,ZEUS IE IHE Encounter Template Text not used by [place] Assessments - Encounter Diagnoses This section includes the primary and secondary diagnoses documented for the Encounter. Date/Time Primary/Secondary Diagnosis Diagnosis Name Provider Source Jun 21, 2025 11:37 AM PRIMARY Post-traumatic stress disorder, unspecified MARK,JAQUELIN E [facility] Plan of Treatment: Future Appointments (+ 6 months) and Future Tests (+/- 45 days) The Plan of Treatment section includes future care activities for the patient from all [place] [facility] This section includes future appointments and future orders which are active, pending or scheduled. Future Appointments This section includes appointments that were scheduled to occur 6 months from the date of the Encounter, up to a maximum of 20 appointments. The data comes from all [facility]. Appointment Date/Time Appointment Type Appointme nt Facility Name Jun 21, 2025 02:00 PM [facility] [place] [facility] [place] [facility] Jul 05, 2025 02:00 PM AM[facility]UL[facility] [place] [facility] Jul 12, 2025 02:00 PM [facility]UL[facility] [place] [facility] Jul 15, 2025 07:45 AM [facility]UL[facility]IC[facility] [place] [facility] Jul 19, 2025 02:00 PM [facility]UL[facility] [place] [facility] Jul 26, 2025 02:00 PM [facility] [place] [facility] Aug 02, 2025 02:00 PM [facility]UL[facility] [place] [facility] Aug 16, 2025 02:00 PM [facility] [place] [facility] Aug 23, 2025 02:00 PM AMBUL[facility] [place] [facility] Aug 30, 2025 02:00 PM [facility] [place] [facility] Sep 09, 2025 08:00 AM [facility] [place] [facility] [place] [facility] Active, Pending, and Scheduled Orders This section includes a listing of several types of active, pending, and scheduled orders, including clinic medications orders, diagnostic test orders, procedure orders and consult orders; where the start date of the order is 45 days before the date of the Encounter or 45 days after the date of theEncounter. The data comes from all [facility]. Test Date/Time Test Type Test Details Facility Name Jun 02, 2025 02:06 PM Consult Order COMMUNITY CARE-UROLOGY Cons Fuel Cell Binder's Choice [facility] [place] [facility] Social History: Smoking Status (Most current) [...] 08:30 AM VA-TOBACCO USE FOR ABRIL CIGARETTES [facility] [place] [facility] Tobacco Use History This section includes a history of the smoking, or tobacco-related health factors, that were collected on or before the date of the Encounter. The data comes from the [place] facility where the Encounter took place. Date/Time Smoking Status/Tobac co Use Comment Facility March 09, 2025 08:30 AM VA-TOBACCO USE FORMER CIGARETTES [facility] [place] [facility] March 09, 2024 09:00 AM VA-TOBACCO FORMER USER [facility] [place] [facility] March 09, 2024 09:00 AM VA-TOBACCO QUIT 15 YRS OR MORE [facility] [place] [facility] March 18, 2023 02:30 PM VA-TOBACCO FORMER USER [facility] [place] [facility] March 18, 2023 02:30 PM VA-TOBACCO QUIT 15 YRS OR MORE [facility] [place] [facility] Jan 11, 2022 08:30 AM VA-TOBACCO FORMER USER [facility] [place] [facility] Jan 11, 2022 08:30 AM VA-TOBACCO QUIT 15 YRS OR MORE [facility] [place] [facility] Dec 26, 2020 09:00 AM VA-TOBACCO FORMER USER [facility] [place] [facility] Dec 26, 2020 09:00 AM VA-TOBACCO QUIT 15 YRS OR MORE [facility] [place] [facility] Dec 08, 2019 09:16 AM VA-TOBACCO FORMER USER [facility] [place] [facility] Dec 08, 2019 09:16 AM VA-TOBACCO QUIT 15 YRS OR MORE [facility] [place] [facility] Oct 14, 2018 02:56 PM VA-TOBACCO FORMER USER [facility] [place] [facility] Oct 14, 2018 02:56 PM VA-TOBACCO QUIT 15 YRS OR MORE [facility] [place] [facility] Dec 12, 2017 09:20 AM QUIT TOBACCO USE > 7 YEARS AGO quit > 30 yrs ( 2-3 pks a day) [facility] Advance Directives: All historical and current [...] Feb 09, 2019 ADVANCE DIRECTIVE VAN MORENO [facility] Feb 08, 2019 ADVANCE DIRECTIVE SONALIPRIYASAMM NOGUERA V A [facility] Encounter Notes: All associated encounter notes This section contains the clinical notes associated to the Encounter. Date/Time Encounter Note(s) Provider Source Jun 14, 2025 02:00 PM SOCIAL WORK GROUP COUNSELING NOTE: LOCAL TITLE: SOCIAL WORK GROUP NOTE STANDARD TITLE: SOCIAL WORK GROUP COUNSELING NOTE DATE OF NOTE: JUN 14, 2025@14:00 ENTRY DATE: JUN 14, 2025@16:12:11 AUTHOR: MANDY FLORES EXP COSIGNER: URGENCY: STATUS: [...] ] managing PTSD symptoms [ x ] Discussion about [place] War and certain memories/experiences [ ] anger management [x ] aging related issues including memory/cognitive decline. [ ] group dynamics, cohesion, and process related issues. Members provided one another with support and feedback. Next group will be 06/21/2025 reported he was doing well with no new problems or concerns. He was attentive and participatory. /gio/ MANDY FLORES [facility] CLINICAL COST RECOVERY TECHNICIAN Signed: 06/14/2025 16:16 [facility]
--- OUTSIDE RECORDS SUMMARY | 2025-06-30 05:20 | XMS_ITS | Continuity of Care Document ---
Author Name [facility] Organization [facility] Care Team Providers Care Medical Technologist Microbiology Name Role Phone [facility] Unavailable Unavailable Problems Combined list of problems [...] on imaging 12[facility]2023 [facility] [place] [facility] Emphysema of lung Active Condition Oc t 2021 Entered By: NADIA DHALIWAL Comment: On chest CT 07/2022 [facility] [place] [facility] Exposure to potentially hazardous substance (SCT [id number]) Active Condition March 27 Entered By: ALIS JACOBO Comment: Entered automatically through JULIET Problem List documentation program [facility] [place] [facility] Hyperlipidemia Active Condition [facility] [place] [facility] Hypertension Active Condition [facility] [place] [facility] Prostate Specific Antigen Above Reference Range (SCT [id number]) Active Condition March 09, 2025 Entered By: YANETH JOE Comment: sees Dr. Matthias Gray, +family h/o prostate ca- father, +AO exposure. 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 [facility] [place] [facility] Diagnosis: ICD-10-CM K03.6 Deposits [accretions] on teeth Active Diagnosis [facility] [place] [facility] Diagnosis: ICD-10-CM R97.20 Elevated prostate specific antigen [PSA] Active Diagnosis [facility] [place] [facility] Diagnosis: ICD-10-CM F10.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, in remission Active Diagnosis [facility] [place] [facility] Diagnosis: ICD-10-CM 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, unspecified site Active Diagnosis [facility] [place] [facility] Diagnosis: ICD-10-CM K08.9 Disorder of teeth and supporting structures, unspecified Active Diagnosis [facility] [place] [facility] Medications Combined list of outpatient medications [...] WITH GRAPEFRU IT JUICE ORAL ACTIVE 12/16/2025 [id number] FURCOLO,T TITO 2024 90 [facility] AMLODIPINE BESYLATE 5MG TAB TAKE ONE TABLET BY MOUTH ONCE DAILY FOR BLOOD PRESSURE /HEART, DO NOT TAKE WITH GRAPEFRU IT JUICE ORAL DISCONT INUED 12/17/2024 [id number] MI DODD AMFERNADNO JAWED 2023 90 [facility] BENAZEPRIL HCL 20MG TAB TAKE ONE TABLET BY MOUTH EVERY MORNING ORAL ACTIVE Zack LANDRUM 2017 [facility] EPINEPHRINE (EQV-EPI-PE N) 0.3MG/0.3ML INJECTOR INJECT DIRECTED INTRAMUS CULARLY ONCE DAILY NEEDED FOR LIFE THREATEN ING ALLERGIC REACTION INTRAM USCULA R ACTIVE 03/10/2026 [id number] FURCOLO,T TITO 2024 2 [facility] FEXOFENADIN E HCL 180MG TAB TAKE ONE TABLET BY MOUTH ONCE DAILY ORAL ACTIVE LI ZACARIAS 2020 [facility] FINASTERIDE 5MG TAB TAKE ONE TABLET BY MOUTH ONCE DAILY ORAL ACTIVE 02/09/2026 [id number] CATINA GRAY MD 2024 90 [facility] PRAZOSIN HCL 2MG CAP TAKE ONE CAPSULE BY MOUTH AT BEDTIME FOR NIGHTMAR ES ORAL ACTIVE 03/10/2026 [id number] FURCOLO,T TITO 2024 90 [facility] [place] PRAZOSIN HCL 2MG CAP TAKE ONE CAPSULE BY MOUTH AT BEDTIME FOR NIGHTMAR ES ORAL DISCONT INUED 09/09/2025 [id number] TONI WIGGINS 2024 90 [facility] PRAZOSIN HCL 2MG CAP TAKE ONE CAPSULE BY MOUTH AT BEDTIME FOR NIGHTMAR ES ORAL DISCONT INUED 03/27/2025 [id number] TONI WIGGINS 2023 90 [facility] ROSUVASTATI N CA 20MG TAB TAKE ONE TABLET BY MOUTH ONCE DAILY FOR CHOLESTE ROL ORAL ACTIVE 03/10/2026 [id number] FURCOLO,T TITO 2024 90 [facility] ROSUVASTATI N CA 20MG TAB TAKE ONE TABLET BY MOUTH ONCE DAILY FOR CHOLESTE ROL ORAL DISCONT INUED 03/10/2025 [id number] FURCOLO,T TITO 2023 90 [facility] SODIUM FLUORIDE 1.1% TOOTHPASTE BRUSH SMALL AMOUNT TO TEETH TWICE DAILY FOR TOOTH DECAY PREVENTI ON DENTAL ACTIVE 10/01/2025 [id number] VELMAALEJANDRA CARLOS 2023 204 [facility] Allergies, Adverse Reactions, Alerts Combined list of allergies from Department of Defense and Veterans Affairs facilities. It does not include entries that were removed or entered in error. Substance Category Reaction Severity Reaction type Status Date Reported Comments Source BEE STINGS Propensity to adverse reaction (finding) Anaphylaxis active 8 [facility] ENVIRONMENTA L ALLERGENS Propensity to adverse reaction (finding) Nasal congestion active 8 [facility] [place] [facility] SHELLFISH Propensity to adverse reactions to food (finding) active 8 [facility] Immunizations Combined list of available immunizations from the Department of Defense and Veterans Affairs facilities. Immunization Series Date Given Administered By Site Reaction Lot Number CVX Code Drug Business Control Specialist Status Comments Source RSV, RECOMBINANT, PROTEIN SUBUNIT RSVPREF3, ADJUVANT RECONSTITUTED , 0.5 ML, PF 2024 TAE WOODS RIGHT DELTO ID [id number] complet ed Completed Series, [facility] INFLUEN[facility], UNSPECIFIED FORMULATION 2023 88 complet ed Completed Series, HISTORICA L INFORMATI ON - FROM OTHER REGISTRY, [facility] INFLUENZA, UNSPECIFIED FORMULATION 2022 88 complet ed HISTORICA L INFORMATI ON - FROM PATIENT'S RECALL, [facility] COVID-19 (MODERNA), MRNA, LNP-S, PF, 50 MCG/0.5 ML (AGES 12+ YEARS) 1 2022 312 complet ed HISTORICA L INFORMATI ON - FROM PATIENT'S RECALL, [facility] INFLUENZA, INJECTABLE, QUADRIVALENT, PRESERVATIVE FREE 2021 150 complet ed [facility] PNEUMOCOCCAL CONJUGATE PCV20, POLYSACCHARID E [id number] CONJUGATE, ADJUVANT, PF 2021 216 complet ed [facility] COVID-19 (MODERNA), MRNA, LNP-S, PF, 100 MCG/0.5ML DOSE OR 50 MCG/0.25ML DOSE 3 2021 207 complet ed MOD; [id number]; 2 [facility] COVID-19 (MODERNA), MRNA, LNP-S, PF, 100 MCG/0.5 ML DOSE 3 2020 207 complet ed [id number] 09/09/21 @ 1915 [facility] INFLUENZA, UNSPECIFIED FORMULATION 2020 88 complet ed [facility] COVID-19 (MODERNA), MRNA, LNP-S, PF, 100 MCG/0.5 ML DOSE 2 2020 207 complet ed MOD; [id number]; 1 [facility] COVID-19 (MODERNA), MRNA, LNP-S, PF, 100 MCG/0.5 ML DOSE 1 2020 207 complet ed MOD; [id number]; 1 [facility] [...] bering documents [facility] [place] [facility] ZOSTER RECOMBINANT 1 2017 187 complet ed patient is requestin g [facility] INFLUENZA, SEASONAL, INJECTABLE 2016 141 complet ed [id number] 65+ Lot: [id number] [facility] [place] INFLUENZA, SEASONAL, INJECTABLE 2016 141 complet ed PCP office [facility] [place] [facility] ZOSTER LIVE 2010 121 complet ed Lot No. [id number] 0.5 mL Left Deltoid [facility] [place] [facility] Results Combined list of recent chemistry, [...] Sep 08, 2024 08:18 AM Reporting Lab: [facility] [place] [address] [address] Performing Lab: [facility] [place] [facility] [address] [facility] [address] [facility] [place] [facility] LIPID PANEL FASTING CHOLESTEROL [MASS/VOLUM E] IN SERUM OR PLASMA 210 mg/dL 03/04 H Specimen Type: SERUM No comment entered. Ordering Provider: KARTHIKEYAN JOE Report Released Date/Time: Sep 08, 2024 08:18 AM Reporting Lab: [facility] [place] [facility] [address] [facility] [address] Performing Lab: [facility] [place] [facility] [address] [facility] [address] [facility]ITALRCARRAWAY [facility] LIPID PANEL FASTING TRIGLYCERID E [MASS/VOLUM E] IN SERUM OR PLASMA 57 mg/dL 0 - 150 03/04 Specimen Type: SERUM No comment entered. Ordering Provider: KARTHIKEYAN JOE Report Released Date/Time: Sep 08, 2024 08:18 AM Reporting Lab: [facility] [place] [place] [address] [address] Performing Lab: [facility] [place] [address] [address] [facility] LIPID PANEL FASTING CHOLESTEROL IN LDL [MASS/VOLUM E] IN SERUM OR PLASMA BY CALCULATION 124 mg/dL 0 - 129 03/04 Specimen Type: SERUM No comment entered. Ordering Provider: KARTHIKEYAN JOE Report Released Date/Time: Sep 08, 2024 08:18 AM Reporting Lab: [facility] [place] [address] [address] Performing Lab: [facility] [place] [address] [address] [facility]ITALRCARRAW[facility] [place] [facility] LIPID PANEL FASTING CHOLESTEROL .TOTAL/CHOL ESTEROL IN HDL [MASS RATIO] IN SERUM OR PLASMA 2.8 03/04 Specimen Type: SERUM No comment entered. Ordering Provider: KARTHIKEYAN JOE Report Released Date/Time: Sep 08, 2024 08:18 AM Reporting Lab: [facility] [place] [address] [address] Performing Lab: [facility] [place] [facility] [address] [facility] [address] [facility] [place] [facility] LIPID PANEL FASTING CHOLESTEROL IN HDL [MASS/VOLUM E] IN SERUM OR PLASMA 75 mg/dL 40 03/04 Specimen Type: SERUM No comment entered. Ordering Provider: KARTHIKEYAN JOE Report Released Date/Time: Sep 08, 2024 08:18 AM Reporting Lab: [facility] [place] [facility] [address] [facility] [address] Performing Lab: [facility] [place] [facility] [address] [facility] [address] [facility] [place] [facility] BASIC METABOLIC PANEL (fasting) UREA NITROGEN [MASS/VOLUM E] IN SERUM OR PLASMA 19 mg/dL 8 - 26 03/04 Specimen Type: SERUM No comment entered. Ordering Provider: KARTHIKEYAN JOE Report Released Date/Time: Sep 08, 2024 08:18 AM Reporting Lab: [facility] [place] [facility] [address] [facility] [address] Performing Lab: [facility] [place] [place] [address] [address] [facility] [place] [facility] BASIC METABOLIC PANEL (fasting) GLUCOSE [MASS/VOLUM E] IN SERUM OR PLASMA 87 mg/dL 65 - 100 03/04 Specimen Type: SERUM No comment entered. Ordering Provider: KARTHIKEYAN JOE Report Released Date/Time: Sep 08, 2024 08:18 AM Reporting Lab: [facility] [place] [address] [address] Performing Lab: [facility] [place] [address] [address] [facility] [place] [facility] BASIC METABOLIC PANEL (fasting) SODIUM [MOLES/VOLU ME] IN SERUM OR PLASMA 143 mmol/L 136 - 145 03/04 Specimen Type: SERUM No comment entered. Ordering Provider: KARTHIKEYAN JOE Report Released Date/Time: Sep 08, 2024 08:18 AM Reporting Lab: [facility] [address] [address] Performing Lab: [facility]PITALRCITIZENS BAPTISTTRN [facility] [address] [facility] [address] [facility]PITALRCITIZENS BAPTISTTRN [facility]USE [facility] BASIC METABOLIC PANEL (fasting) POTASSIUM [MOLES/VOLU ME] IN SERUM OR PLASMA 5.0 mmol/L 3.5 - 5.1 03/04 Specimen Type: SERUM No comment entered. Ordering Provider: KARTHIKEYAN JOE Report Released Date/Time: Sep 08, 2024 08:18 AM Reporting Lab: [facility]ITALRCITIZ[facility] BAPTISTTRN [facility]EN[facility] [address] [facility] [address] Performing Lab: [facility]ITALRCITIZENS BAPTISTTRN [facility] CHILDRENUSE[address] [address] [facility] BASIC METABOLIC PANEL (fasting) CHLORIDE [MOLES/VOLU ME] IN SERUM OR PLASMA 106 mmol/L 98 - 107 03/04 Specimen Type: SERUM No comment entered. Ordering Provider: KARTHIKEYAN JOE Report Released Date/Time: Sep 08, 2024 08:18 AM Reporting Lab: [facility]ITALRCITIZ[facility] BAPTISTTRN [facility] CHILDRENUSE[address] [address] Performing Lab: [facility]ITALRL TRN [facility] CHILDRENUSE[address] [address] [facility] BASIC METABOLIC PANEL (fasting) CARBON DIOXIDE, TOTAL [MOLES/VOLU ME] IN SERUM OR PLASMA 27 meq/L 23 - 31 03/04 Specimen Type: SERUM No comment entered. Ordering Provider: KARTHIKEYAN JOE Report Released Date/Time: Sep 08, 2024 08:18 AM Reporting Lab: [facility]ITALRCITIZ[facility] BAPTISTTRN [facility] CHILDRENUSE[address] [address] Performing Lab: [facility]ITALRCITIZENS BAPTISTTRN [facility]ILDRENUSE[address] [address] [facility] BASIC METABOLIC PANEL (fasting) CALCIUM [MASS/VOLUM E] IN SERUM OR PLASMA 9.8 mg/dL 8.8 - 10 03/04 Specimen Type: SERUM No comment entered. Ordering Provider: FURCOLO,TIN A Report Released Date/Time: Sep 08, 2024 08:18 AM Reporting Lab: [facility] [place] [facility] [address] [facility] [address] Performing Lab: [facility] [place] [facility] [address] [facility] [address] [facility]N [place] [facility] BASIC METABOLIC PANEL (fasting) CREATININE [MASS/VOLUM E] IN SERUM OR PLASMA 1.06 mg/dL 0.72 - 1.25 03/04 Specimen Type: SERUM No comment entered. Ordering Provider: KARTHIKEYAN JOE Report Released Date/Time: Sep 08, 2024 08:18 AM Reporting Lab: [facility] [place] [facility] [address] [facility] [address] Performing Lab: [facility] [place] [place] [facility] [address] [facility] [address] [facility]ITALRL WSTRN [facility]EN[facility] BASIC METABOLIC PANEL (fasting) GLOMERULAR FILTRATION RATE/1.73 SQ M.PREDICTED [VOLUME RATE/AREA] IN SERUM, PLASMA OR BLOOD BY CREATININE- BASED FORMULA (CKD-EPI 2020) 72 mL/min 60 03/04 Specimen Type: SERUM No comment entered. Ordering Provider: KARTHIKEYAN JOE Report Released Date/Time: Sep 08, 2024 08:18 AM Reporting Lab: [facility] [place] [facility] [address] [facility] [address] Performing Lab: [facility] [place] [place] [facility] [address] [facility] [address] [facility] [place] [facility] PSA PROSTATE SPECIFIC AG [MASS/VOLUM E] IN SERUM OR PLASMA 8.81 ng/mL 0.00 - 4.00 08/31 H Specimen Type: SERUM No comment entered. Ordering Provider: KARTHIKEYAN JOE Report Released Date/Time: March 09, 2024 09:50 AM Reporting Lab: [facility] [place] [facility] [address] [facility] [address] Performing Lab: [facility] [place] [address] [address] [facility]N [facility] BASIC METABOLIC PANEL (non-fast ing) UREA NITROGEN [MASS/VOLUM E] IN SERUM OR PLASMA 16 mg/dL 7 - 25 08/31 Specimen Type: SERUM No comment entered. Ordering Provider: KARTHIKEYAN JOE Report Released Date/Time: March 09, 2024 09:50 AM Reporting Lab: [facility] [address] [address] Performing Lab: [facility] [address] [address] [facility] BASIC METABOLIC PANEL (non-fast ing) GLUCOSE [MASS/VOLUM E] IN SERUM OR PLASMA 106 mg/dL 65 - 100 08/31 H Specimen Type: SERUM No comment entered. Ordering Provider: KARTHIKEYAN JOE Report Released Date/Time: March 09, 2024 09:50 AM Reporting Lab: [address] [address] Performing Lab: [address] [address] [facility] BASIC METABOLIC PANEL (non-fast ing) SODIUM [MOLES/VOLU ME] IN SERUM OR PLASMA 139 mmol/L 135 - 145 08/31 Specimen Type: SERUM No comment entered. Ordering Provider: KARTHIKEYAN JOE Report Released Date/Time: March 09, 2024 09:50 AM Reporting Lab: [facility] [address] [address] Performing Lab: [facility] [address] [address] [facility] BASIC METABOLIC PANEL (non-fast ing) POTASSIUM [MOLES/VOLU ME] IN SERUM OR PLASMA 3.9 mmol/L 3.5 - 5.0 08/31 Specimen Type: SERUM No comment entered. Ordering Provider: KARTHIKEYAN JOE Report Released Date/Time: March 09, 2024 09:50 AM Reporting Lab: [address] [address] Performing Lab: [facility] [address] [facility] [address] [facility] BASIC METABOLIC PANEL (non-fast ing) CHLORIDE [MOLES/VOLU ME] IN SERUM OR PLASMA 105 mmol/L 100 - 110 08/31 Specimen Type: SERUM No comment entered. Ordering Provider: KARTHIKEYAN JOE Report Released Date/Time: March 09, 2024 09:50 AM Reporting Lab: [facility] [address] [facility] [address] Performing Lab: [facility] [address] [facility] [address] [facility] BASIC METABOLIC PANEL (non-fast ing) CARBON DIOXIDE, TOTAL [MOLES/VOLU ME] IN SERUM OR PLASMA 25 meq/L 20 - 30 08/31 Specimen Type: SERUM No comment entered. Ordering Provider: KARTHIKEYAN JOE Report Released Date/Time: March 09, 2024 09:50 AM Reporting Lab: [facility] [address] [facility] [address] Performing Lab: [facility] [address] [address] [facility] BASIC METABOLIC PANEL (non-fast ing) CREATININE [MASS/VOLUM E] IN SERUM OR PLASMA 1.17 mg/dL 0.50 - 1.40 08/31 Specimen Type: SERUM No comment entered. Ordering Provider: KARTHIKEYAN JOE Report Released Date/Time: March 09, 2024 09:50 AM Reporting Lab: [facility]ILDRENUSE[address] [address] Performing Lab: [facility] CHILDRENUSE[address] [address] [facility] BASIC METABOLIC PANEL (non-fast ing) GLOMERULAR FILTRATION RATE/1.73 SQ M.PREDICTED [VOLUME RATE/AREA] IN SERUM, PLASMA OR BLOOD BY CREATININE- BASED FORMULA (CKD-EPI 2020) 65 mL/min 60 08/31 Specimen Type: SERUM No comment entered. Ordering Provider: KARTHIKEYAN JOE Report Released Date/Time: March 09, 2024 09:50 AM Reporting Lab: [facility] [place] [facility] [address] [facility] [address] Performing Lab: [facility]DRENUSETS [facility] [address] [facility] [address] [facility]N [facility]EN[facility] BASIC METABOLIC PANEL (non-fast ing) UREA NITROGEN [MASS/VOLUM E] IN SERUM OR PLASMA 20 mg/dL 7 - 25 03/03 Specimen Type: SERUM No comment entered. Ordering Provider: KARTHIKEYAN JOE Report Released Date/Time: February 28, 2024 10:29 AM Reporting Lab: [facility] [address] [facility] [address] Performing Lab: [facility]ILDRENUSE[address] [address] [facility]ITALRCARRAWAY [facility] BASIC METABOLIC PANEL (non-fast ing) GLUCOSE [MASS/VOLUM E] IN SERUM OR PLASMA 105 mg/dL 65 - 100 03/03 H Specimen Type: SERUM No comment entered. Ordering Provider: KARTHIKEYAN JOE Report Released Date/Time: February 28, 2024 10:29 AM Reporting Lab: [facility] [address] [facility] [address] Performing Lab: [facility] CHILDRENUSE[address] [address] [facility] BASIC METABOLIC PANEL (non-fast ing) SODIUM [MOLES/VOLU ME] IN SERUM OR PLASMA 143 mmol/L 135 - 145 03/03 Specimen Type: SERUM No comment entered. Ordering Provider: KARTHIKEYAN JOE Report Released Date/Time: February 28, 2024 10:29 AM Reporting Lab: [facility] [address] [facility] [address] Performing Lab: [facility]ILDRENUSE[address] [address] [facility]N [facility] BASIC METABOLIC PANEL (non-fast ing) POTASSIUM [MOLES/VOLU ME] IN SERUM OR PLASMA 4.6 mmol/L 3.5 - 5.0 03/03 Specimen Type: SERUM No comment entered. Ordering Provider: KARTHIKEYAN JOE Report Released Date/Time: February 28, 2024 10:29 AM Reporting Lab: [facility] [address] [address] Performing Lab: [facility] [address] [address] [facility] BASIC METABOLIC PANEL (non-fast ing) CHLORIDE [MOLES/VOLU ME] IN SERUM OR PLASMA 107 mmol/L 100 - 110 03/03 Specimen Type: SERUM No comment entered. Ordering Provider: KARTHIKEYAN JOE Report Released Date/Time: February 28, 2024 10:29 AM Reporting Lab: [facility] [address] [address] Performing Lab: [facility] [address] [address] [facility] BASIC METABOLIC PANEL (non-fast ing) CARBON DIOXIDE, TOTAL [MOLES/VOLU ME] IN SERUM OR PLASMA 26 meq/L 20 - 30 03/03 Specimen Type: SERUM No comment entered. Ordering Provider: KARTHIKEYAN JOE Report Released Date/Time: February 28, 2024 10:29 AM Reporting Lab: [facility] [address] [address] Performing Lab: [facility]ITALRCARRAWAY [facility]ERN [facility] CHILDRENUSE[address] [address] [facility] BASIC METABOLIC PANEL (non-fast ing) CREATININE [MASS/VOLUM E] IN SERUM OR PLASMA 1.16 mg/dL 0.50 - 1.40 03/03 Specimen Type: SERUM No comment entered. Ordering Provider: KARTHIKEYAN JOE Report Released Date/Time: February 28, 2024 10:29 AM Reporting Lab: [facility] [address] [address] Performing Lab: [facility]ITAL[facility] W[facility] [place] [facility] [address] [facility] [address] [facility]EN[facility] BASIC METABOLIC PANEL (non-fast ing) GLOMERULAR FILTRATION RATE/1.73 SQ M.PREDICTED [VOLUME RATE/AREA] IN SERUM, PLASMA OR BLOOD BY CREATININE- BASED FORMULA (CKD-EPI 2020) 65 mL/min 60 03/03 Specimen Type: SERUM No comment entered. Ordering Provider: KARTHIKEYAN JOE Report Released Date/Time: February 28, 2024 10:29 AM Reporting Lab: [facility]ITALRCITIZENS BAPTISTTRN [facility] [address] [facility] [address] Performing Lab: [facility] [address] [facility] [address] [facility] LIPID PANEL, NON FASTING CHOLESTEROL [MASS/VOLUM E] IN SERUM OR PLASMA 190 mg/dL 03/03 Specimen Type: SERUM No comment entered. Ordering Provider: KARTHIKEYAN JOE Report Released Date/Time: February 28, 2024 10:29 AM Reporting Lab: [facility]ITAL[facility] [address] [facility] [address] Performing Lab: [facility]ITALRCARRAWAY [facility] [address] [facility] [address] [facility] LIPID PANEL, NON FASTING TRIGLYCERID E [MASS/VOLUM E] IN SERUM OR PLASMA 68 mg/dL 0 - 150 03/03 Specimen Type: SERUM No comment entered. Ordering Provider: KARTHIKEYAN JOE Report Released Date/Time: February 28, 2024 10:29 AM Reporting Lab: [facility]ITALRCITIZ[facility] BAPTISTTRN [facility] [address] [facility] [address] Performing Lab: [facility] [address] [facility] [address] [facility] LIPID PANEL, NON FASTING CHOLESTEROL IN LDL [MASS/VOLUM E] IN SERUM OR PLASMA BY CALCULATION 102 mg/dL 0 - 129 03/03 Specimen Type: SERUM No comment entered. Ordering Provider: KARTHIKEYAN JOE Report Released Date/Time: February 28, 2024 10:29 AM Reporting Lab: [facility] [place] [facility] [address] [facility] [address] Performing Lab: [facility] [address] [facility] [address] [facility]ITALCHUSE [facility] LIPID PANEL, NON FASTING CHOLESTEROL .TOTAL/CHOL ESTEROL IN HDL [MASS RATIO] IN SERUM OR PLASMA 2.6 03/03 Specimen Type: SERUM No comment entered. Ordering Provider: KARTHIKEYAN JOE Report Released Date/Time: February 28, 2024 10:29 AM Reporting Lab: [facility]ITALRL TRN [facility] [address] [facility] [address] Performing Lab: [facility]ITALRL TRN [facility] [address] [facility] [address] [facility] LIPID PANEL, NON FASTING CHOLESTEROL IN HDL [MASS/VOLUM E] IN SERUM OR PLASMA 74 mg/dL 40 - 60 03/03 H Specimen Type: SERUM No comment entered. Ordering Provider: KARTHIKEYAN JOE Report Released Date/Time: February 28, 2024 10:29 AM Reporting Lab: [facility] TRN [facility] [address] [facility] [address] Performing Lab: [facility] [address] [facility] [address] [facility]RCARRAWAY [facility] LIPID PANEL FASTING CHOLESTEROL [MASS/VOLUM E] IN SERUM OR PLASMA 215 mg/dL 09/23 H Specimen Type: SERUM No comment entered. Ordering Provider: KENAN DODD Report Released Date/Time: Sep 09, 2023 03:28 PM Reporting Lab: [facility] [place] [facility] [address] [facility] [address] Performing Lab: [facility]ITALRL [facility]N [facility] [address] [facility] [address] [facility]ITALRCITIZENS BAPTISTTRN [facility]ITALCHUSE [facility] LIPID PANEL FASTING TRIGLYCERID E [MASS/VOLUM E] IN SERUM OR PLASMA 66 mg/dL 0 - 150 09/23 Specimen Type: SERUM No comment entered. Ordering Provider: KENAN DODD Report Released Date/Time: Sep 09, 2023 03:28 PM Reporting Lab: [facility] [place] [facility] [address] [facility] [address] Performing Lab: [facility] [place] [facility] [address] [facility] [address] [facility] [place] [facility] LIPID PANEL FASTING CHOLESTEROL IN LDL [MASS/VOLUM E] IN SERUM OR PLASMA BY CALCULATION 125.8 mg/dL 0 - 129 09/23 Specimen Type: SERUM No comment entered. Ordering Provider: KENAN DODD Report Released Date/Time: Sep 09, 2023 03:28 PM Reporting Lab: [facility] [place] [facility] [address] [facility] [address] Performing Lab: [facility] [place] [facility] [address] [facility] [address] [facility] [place] [facility] LIPID PANEL FASTING CHOLESTEROL .TOTAL/CHOL ESTEROL IN HDL [MASS RATIO] IN SERUM OR PLASMA 2.8 09/23 Specimen Type: SERUM No comment entered. Ordering Provider: KENAN DODD Report Released Date/Time: Sep 09, 2023 03:28 PM Reporting Lab: [facility] [place] [facility] [address] [facility] [address] Performing Lab: [facility] [place] [facility] [address] [facility] [address] [facility] [place] [place] [facility] LIPID PANEL FASTING CHOLESTEROL IN HDL [MASS/VOLUM E] IN SERUM OR PLASMA 76 mg/dL 40 - 60 09/23 H Specimen Type: SERUM No comment entered. Ordering Provider: KENAN DODD Report Released Date/Time: Sep 09, 2023 03:28 PM Reporting Lab: [facility] [place] [facility] [address] [facility] [address] Performing Lab: [facility] [place] [facility] [address] [facility] [address] [facility] [place] [facility] BASIC METABOLIC PANEL (fasting) UREA NITROGEN [MASS/VOLUM E] IN SERUM OR PLASMA 18 mg/dL 7 - 25 09/23 Specimen Type: SERUM No comment entered. Ordering Provider: KENAN DODD Report Released Date/Time: Sep 09, 2023 03:28 PM Reporting Lab: [facility] [place] [facility] [address] [facility] [address] Performing Lab: [facility] [place] [facility] [address] [facility] [address] [facility] [place] [facility] BASIC METABOLIC PANEL (fasting) GLUCOSE [MASS/VOLUM E] IN SERUM OR PLASMA 97 mg/dL 65 - 100 09/23 Specimen Type: SERUM No comment entered. Ordering Provider: KENAN DODD Report Released Date/Time: Sep 09, 2023 03:28 PM Reporting Lab: [facility] [place] [facility] [address] [facility] [address] Performing Lab: [facility] [place] [place] [facility] [address] [facility] [address] [facility] [place] [place] [facility] BASIC METABOLIC PANEL (fasting) SODIUM [MOLES/VOLU ME] IN SERUM OR PLASMA 146 mmol/L 135 - 145 09/23 H Specimen Type: SERUM No comment entered. Ordering Provider: KENAN DODD Report Released Date/Time: Sep 09, 2023 03:28 PM Reporting Lab: [facility] [place] [facility] [address] [facility] [address] Performing Lab: [facility] [place] [facility] [address] [facility] [address] [facility] [place] [facility] BASIC METABOLIC PANEL (fasting) POTASSIUM [MOLES/VOLU ME] IN SERUM OR PLASMA 4.9 mmol/L 3.5 - 5.0 09/23 Specimen Type: SERUM No comment entered. Ordering Provider: KENAN DODD Report Released Date/Time: Sep 09, 2023 03:28 PM Reporting Lab: [facility] [place] [facility] [address] [facility] [address] Performing Lab: [facility] [place] [facility] [address] [facility] [address] [facility] BASIC METABOLIC PANEL (fasting) CHLORIDE [MOLES/VOLU ME] IN SERUM OR PLASMA 108 mmol/L 100 - 110 09/23 Specimen Type: SERUM No comment entered. Ordering Provider: KENAN DODD Report Released Date/Time: Sep 09, 2023 03:28 PM Reporting Lab: [facility] [place] [address] [address] Performing Lab: [facility] [place] [address] [address] [facility]ITALRL TRN [facility]SU[facility] BASIC METABOLIC PANEL (fasting) CARBON DIOXIDE, TOTAL [MOLES/VOLU ME] IN SERUM OR PLASMA 28 meq/L 20 - 30 09/23 Specimen Type: SERUM No comment entered. Ordering Provider: KENAN DODD Report Released Date/Time: Sep 09, 2023 03:28 PM Reporting Lab: [facility] [place] [address] [address] Performing Lab: [facility] [place] [address] [address] [facility]PITALRL [facility]ITALN [facility] BASIC METABOLIC PANEL (fasting) CREATININE [MASS/VOLUM E] IN SERUM OR PLASMA 1.08 mg/dL 0.50 - 1.40 09/23 Specimen Type: SERUM No comment entered. Ordering Provider: KENAN DODD Report Released Date/Time: Sep 09, 2023 03:28 PM Reporting Lab: [facility] [place] [address] [address] Performing Lab: [facility] [place] [address] [address] [facility]ITAL[facility]N [facility] BASIC METABOLIC PANEL (fasting) GLOMERULAR FILTRATION RATE/1.73 SQ M.PREDICTED [VOLUME RATE/AREA] IN SERUM, PLASMA OR BLOOD BY CREATININE- BASED FORMULA (CKD-EPI 2020) 72 mL/min 60 09/23 Specimen Type: SERUM No comment entered. Ordering Provider: KENAN DODD Report Released Date/Time: Sep 09, 2023 03:28 PM Reporting Lab: [facility] [place] [facility] [address] [facility] [address] Performing Lab: [facility] [place] [facility] [address] [facility] [address] [facility] [place] [facility] CBC AND DIFF (AUTO) LEUKOCYTES [#/VOLUME] IN BLOOD BY AUTOMATED COUNT 5.74 10*3/u L 4.50 - 11.00 09/23 Specimen Type: BLOOD No comment entered. Ordering Provider: KENAN DODD Report Released Date/Time: Sep 09, 2023 03:28 PM Reporting Lab: [facility] [place] [facility] [address] [facility] [address] Performing Lab: [facility] [place] [facility] [address] [facility] [address] [facility] [place] [facility] CBC AND DIFF (AUTO) ERYTHROCYTE S [#/VOLUME] IN BLOOD BY AUTOMATED COUNT 5.55 10*6/u L 4.23 - 5.66 09/23 Specimen Type: BLOOD No comment entered. Ordering Provider: KENAN DODD Report Released Date/Time: Sep 09, 2023 03:28 PM Reporting Lab: [facility] [place] [facility] [address] [facility] [address] Performing Lab: [facility] [place] [facility] [address] [facility] [address] [facility] [place] [facility] CBC AND DIFF (AUTO) HEMOGLOBIN [MASS/VOLUM E] IN BLOOD 14.1 g/dL 12.8 - 17 09/23 Specimen Type: BLOOD No comment entered. Ordering Provider: KENAN DODD Report Released Date/Time: Sep 09, 2023 03:28 PM Reporting Lab: [facility] [place] [facility] [address] [facility] [address] Performing Lab: [facility] [place] [facility] [address] [facility] [address] [facility] [place] [facility] CBC AND DIFF (AUTO) HEMATOCRIT [VOLUME FRACTION] OF BLOOD BY AUTOMATED COUNT 43.5 39.2 - 50.4 09/23 Specimen Type: BLOOD No comment entered. Ordering Provider: KENAN DODD Report Released Date/Time: Sep 09, 2023 03:28 PM Reporting Lab: [facility] [place] [facility] [address] [facility] [address] Performing Lab: [facility] [place] [facility] [address] [facility] [address] [facility] [place] [facility] CBC AND DIFF (AUTO) MCV [ENTITIC VOLUME] BY AUTOMATED COUNT 78.4 fL 82 - 99 09/23 L Specimen Type: BLOOD No comment entered. Ordering Provider: KENAN DODD Report Released Date/Time: Sep 09, 2023 03:28 PM Reporting Lab: [facility] [place] [facility] [address] [facility] [address] Performing Lab: [facility] [place] [facility] [address] [facility] [address] [facility] [place] [facility] CBC AND DIFF (AUTO) MCHC [MASS/VOLUM E] BY AUTOMATED COUNT 32.4 g/dL 30.8 - 35.1 09/23 Specimen Type: BLOOD No comment entered. Ordering Provider: KENAN DODD Report Released Date/Time: Sep 09, 2023 03:28 PM Reporting Lab: [facility] [place] [facility] [address] [facility] [address] Performing Lab: [facility] [place] [facility] [address] [facility] [address] [facility] [place] [facility] CBC AND DIFF (AUTO) PLATELETS [#/VOLUME] IN BLOOD BY AUTOMATED COUNT 231 10*3/u L 140 - 360 09/23 Specimen Type: BLOOD No comment entered. Ordering Provider: KENAN DODD Report Released Date/Time: Sep 09, 2023 03:28 PM Reporting Lab: [facility] [place] [facility] [address] [facility] [address] Performing Lab: [facility] [place] [facility] [address] [facility] [address] [facility] [place] [facility] CBC AND DIFF (AUTO) ERYTHROCYTE DISTRIBUTIO N WIDTH [RATIO] BY AUTOMATED COUNT 15.2 12.0 - 16.0 09/23 Specimen Type: BLOOD No comment entered. Ordering Provider: KENAN DODD Report Released Date/Time: Sep 09, 2023 03:28 PM Reporting Lab: [facility] [place] [facility] [address] [facility] [address] Performing Lab: [facility] [place] [facility] [address] [facility] [address] [facility] [place] [facility] CBC AND DIFF (AUTO) MONOCYTES [#/VOLUME] IN BLOOD BY AUTOMATED COUNT 0.49 10*3/u L 0.30 - 1.10 09/23 Specimen Type: BLOOD No comment entered. Ordering Provider: KENAN DODD Report Released Date/Time: Sep 09, 2023 03:28 PM Reporting Lab: [facility] [place] [address] [address] Performing Lab: [facility] [place] [facility] [address] [facility] [address] [facility] [place] [facility] CBC AND DIFF (AUTO) MCH [ENTITIC MASS] BY AUTOMATED COUNT 25.4 pg 26.2 - 32.6 09/23 L Specimen Type: BLOOD No comment entered. Ordering Provider: KENAN DODD Report Released Date/Time: Sep 09, 2023 03:28 PM Reporting Lab: [facility] [place] [address] [address] Performing Lab: [facility] [place] [address] [address] [facility] [place] [facility] CBC AND DIFF (AUTO) NEUTROPHILS /100 LEUKOCYTES IN BLOOD BY AUTOMATED COUNT 54.3 43.7 - 75.8 09/23 Specimen Type: BLOOD No comment entered. Ordering Provider: KENAN DODD Report Released Date/Time: Sep 09, 2023 03:28 PM Reporting Lab: [facility] [place] [address] [address] Performing Lab: [facility] [place] [facility] [address] [facility] [address] [facility] [place] [facility] CBC AND DIFF (AUTO) LYMPHOCYTES /100 LEUKOCYTES IN BLOOD BY AUTOMATED COUNT 31.5 14.0 - 42.3 09/23 Specimen Type: BLOOD No comment entered. Ordering Provider: KENAN DODD Report Released Date/Time: Sep 09, 2023 03:28 PM Reporting Lab: [facility] [place] [facility] [address] [facility] [address] Performing Lab: [facility] [place] [facility] [address] [facility] [address] [facility] [place] [facility] CBC AND DIFF (AUTO) MONOCYTES/1 00 LEUKOCYTES IN BLOOD BY AUTOMATED COUNT 8.5 5.1 - 13.7 09/23 Specimen Type: BLOOD No comment entered. Ordering Provider: KENAN DODD Report Released Date/Time: Sep 09, 2023 03:28 PM Reporting Lab: [facility] [place] [facility] [address] [facility] [address] Performing Lab: [facility] [place] [facility] [address] [facility] [address] [facility] [place] [facility] CBC AND DIFF (AUTO) EOSINOPHILS /100 LEUKOCYTES IN BLOOD BY AUTOMATED COUNT 4.4 0.4 - 6.8 09/23 Specimen Type: BLOOD No comment entered. Ordering Provider: KENAN DDOD Report Released Date/Time: Sep 09, 2023 03:28 PM Reporting Lab: [facility] [place] [facility] [address] [facility] [address] Performing Lab: [facility] [place] [facility] [address] [facility] [address] [facility] [place] [facility] CBC AND DIFF (AUTO) BASOPHILS/1 00 LEUKOCYTES IN BLOOD BY AUTOMATED COUNT 1.0 0.1 - 2.0 09/23 Specimen Type: BLOOD No comment entered. Ordering Provider: KENAN DODD Report Released Date/Time: Sep 09, 2023 03:28 PM Reporting Lab: [facility] [place] [facility] [address] [facility] [address] Performing Lab: [facility] [place] [facility] [address] [facility] [address] [facility] [place] CBC AND DIFF (AUTO) NEUTROPHILS [#/VOLUME] IN BLOOD BY AUTOMATED COUNT 3.11 10*3/u L 2.20 - 7.60 09/23 Specimen Type: BLOOD No comment entered. Ordering Provider: KENAN DODD [employer] Report Released Date/Time: Sep 09, 2023 03:28 PM Reporting Lab: [facility] [place] [facility] [address] [facility] [address] Performing Lab: [facility] [place] [facility] [address] [facility] [address] [facility] [place] CBC AND DIFF (AUTO) LYMPHOCYTES [#/VOLUME] IN BLOOD BY AUTOMATED COUNT 1.81 10*3/u L 1.00 - 3.20 09/23 Specimen Type: BLOOD No comment entered. Ordering Provider: KENAN DODD Report Released Date/Time: Sep 09, 2023 03:28 PM Reporting Lab: [facility] [place] [facility] [address] [facility] [address] Performing Lab: [facility] [place] [facility] [address] [facility] [address] [facility] [place] CBC AND DIFF (AUTO) EOSINOPHILS [#/VOLUME] IN BLOOD BY AUTOMATED COUNT 0.25 10*3/u L 0.03 - 0.44 09/23 Specimen Type: BLOOD No comment entered. Ordering Provider: KENAN DODD [employer] Report Released Date/Time: Sep 09, 2023 03:28 PM Reporting Lab: [facility] [place] [facility] [address] [facility] [address] Performing Lab: [facility] [place] [facility] [address] [facility] [address] [facility] CBC AND DIFF (AUTO) BASOPHILS [#/VOLUME] IN BLOOD BY AUTOMATED COUNT 0.06 10*3/u L 0.01 - 0.13 09/23 Specimen Type: BLOOD No comment entered. Ordering Provider: KENAN DODD Report Released Date/Time: Sep 09, 2023 03:28 PM Reporting Lab: [facility] [place] [facility] [address] [facility] [address] Performing Lab: [facility] [place] [facility] [address] [facility] [address] [facility] [place] [facility] CBC AND DIFF (AUTO) IMMATURE GRANULOCYTE S/100 LEUKOCYTES IN BLOOD BY AUTOMATED COUNT 0.3 0.0 - 0.7 09/23 Specimen Type: BLOOD No comment entered. Ordering Provider: KENAN DODD Report Released Date/Time: Sep 09, 2023 03:28 PM Reporting Lab: [facility] [place] [address] [address] Performing Lab: [facility] [place] [facility] [address] [facility] [address] [facility] [place] [facility] CBC AND DIFF (AUTO) IMMATURE GRANULOCYTE S [#/VOLUME] IN BLOOD 0.02 10*3/u L 0.00 - 0.06 09/23 Specimen Type: BLOOD No comment entered. Ordering Provider: KENAN DODD Report Released Date/Time: Sep 09, 2023 03:28 PM Reporting Lab: [facility] [place] [address] [address] Performing Lab: [facility] [place] [address] [address] [facility] [place] [facility] Vital Signs Combined list of inpatient and outpatient Vital Signs from Department of Defense and Veterans Affairs, ranging from 12 months to all on record, depending upon the facility. Vital Sign Value Date Comments Source SYSTOLIC BLOOD PRESSURE 125 03/09/20 25 08:34:17 [facility] [place] [facility] DIASTOLIC BLOOD PRESSURE 75 025 08:34:17 [facility] [place] [facility] PULSE OXIMETRY 99 03/09/2025 08[facility]34:17 [facility] [id number] Diagnos is: ICD-10- CM F43.10 Post-tr aumatic stress disorde r, unspeci fied MARK,[facility] ISTIE 12/29 [facility] HEARING AID REPAIR/MOD IFYING [id number] Diagnos is: ICD-10- CM Z46.1 Encount er for fitting and adjustm ent of hearing aid Kinza PALMA 01/02 [facility] [id number] Diagnos is: ICD-10- CM F43.10 Post-tr aumatic stress disorde r, unspeci fied MARK,[facility] ISTIE 01/05 [facility] Out[facility] [id number] 01/08 [facility] En[facility] [id number] 01/08 [facility] CASE MGMT-[facility] LIT [id number] Diagnos is: ICD-10- CM K03.6 Deposit s [accret ions] on teeth Svetlana AGOSTO ADEPEEWEE 01/09 [facility] DENTAL BITEWING FOUR IMAGES [id number] Diagnos is: ICD-10- CM K08.9 Disorde r of teeth and support ing structu res, unspeci fied MIKAELA TORRES 01/09 [facility] GROUP PSYCHOTHER APY [id number] Diagnos is: ICD-10- CM F43.10 Post-tr aumatic stress disorde r, unspeci fied MARK,CH[facility] ISTIE 01/12 [facility] En[facility] [id number] 01/17 [facility] GROUP PSYCHOTHER APY [id number] Diagnos is: ICD-10- CM F43.10 Post-tr aumatic stress disorde r, unspeci fied MARK,CH[facility] ISTIE 01/19 [facility] GROUP PSYCHOTHER APY [id number] Diagnos is: ICD-10- CM F43.10 Post-tr aumatic stress disorde r, unspeci fied MARK,CH[facility] ISTIE 01/26 [facility] GROUP PSYCHOTHER AP[facility] [id number] Diagnos is: ICD-10- CM F43.10 Post-tr aumatic stress disorde r, unspeci fied MARK,CHR ISTIE 02/02 [facility] GROUP PSYCHOTHER APY [id number] Diagnos is: ICD-10- CM F43.10 Post-tr aumatic stress disorde r, unspeci fied MARK,CHR ISTIE 02/09 [facility] GROUP PSYCHOTHER APY [id number] Diagnos is: ICD-10- CM F43.10 Post-tr aumatic stress disorde r, unspeci fied MARK,CHR ISTIE 02/16 [facility]Y [id number] Diagnos is: ICD-10- CM F43.10 Post-tr aumatic stress disorde r, unspeci fied MARK,CHR ISTIE 02/23 [facility] Outpatient Encounter [id number] 03/09 [facility] OFFICE O/P EST MOD 30 MIN [id number] Diagnos is: ICD-10- CM 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 , unspeci fied site FURCOLO,TI NA 03/09 [facility] [id number] Diagnos is: ICD-10- CM F43.10 Post-tr aumatic stress disorde r, unspeci fied MARK,CHR ISTIE 03/09 [facility] [id number] Diagnos is: ICD-10- CM F43.10 Post-tr aumatic stress disorde r, unspeci fied MARK,CHR ISTIE 03/16 [facility] PSYTX W PT W E/M 30 MIN [id number] Diagnos is: ICD-10- CM F10.21 Alcohol depende nce, in remissi on FELICIANO,P CARLA B 03/26 [facility] [id number] Diagnos is: ICD-10- CM F43.10 Post-tr aumatic stress disorde r, unspeci fied MARK,CHR ISTIE 03/30 [facility] [id number] Diagnos is: ICD-10- CM F43.10 Post-tr aumatic stress disorde r, unspeci fied MARK,CHR ISTIE 04/06 [facility]Y [id number] Diagnos is: ICD-10- CM F43.10 Post-tr aumatic stress disorde r, unspeci fied MARK,CHR ISTIE 05/04 [facility] [id number] Diagnos is: ICD-10- CM F43.10 Post-tr aumatic stress disorde r, unspeci fied MARK,CHR ISTIE 05/11 [facility] [id number] Diagnos is: ICD-10- CM F43.10 Post-tr aumatic stress disorde r, unspeci fied MARK,CHR ISTIE 05/18 [facility] Out[facility] Encounter [id number] 05/25 [facility] [id number] Diagnos is: ICD-10- CM F43.10 Post-tr aumatic stress disorde r, unspeci fied MARK,CHR ISTIE 06/01 [facility] [id number] Diagnos is: ICD-10- CM F43.10 Post-tr aumatic stress disorde r, unspeci fied MARK,CHR ISTIE 06/08 [facility] [id number] Diagnos is: ICD-10- CM F43.10 Post-tr aumatic stress disorde r, unspeci fied MARK,[facility] ISTIE 06/15 [facility] GROUP PSYCHOTHER APY [id number] Diagnos is: ICD-10- CM F43.10 Post-tr aumatic stress disorde r, unspeci fied MARK,[facility] ISTIE 06/22 [facility] [id number] Diagnos is: ICD-10- CM F43.10 Post-tr aumatic stress disorde r, unspeci fied MARK,[facility] ISTIE 07/13 [facility] HEARING AID REPAIR/MOD IFYING [id number] Diagnos is: ICD-10- CM Z46.1 Encount er for fitting and adjustm ent of hearing aid SHAYNE GARRISON 07/13 [facility] Outpatient Encounter 1.07/15 [facility] CASE MGMT-ORAL HEALTH LIT [id number] Diagnos is: ICD-10- CM K03.6 Deposit s [accret ions] on teeth SURENDRAN ADEMiliHDPaloma 07/16 [facility] GROUP PSYCHOTHER APY [id number] Diagnos is: ICD-10- CM F43.10 Post-tr aumatic stress disorde r, unspeci fied MARK,[facility] ISTIE 07/20 [facility] GROUP PSYCHOTHER APY [id number] Diagnos is: ICD-10- CM F43.10 Post-tr aumatic stress disorde r, unspeci fied MARK,[facility] ISTIE 07/27 [facility] PS[facility]CHOTHER [facility]Y [id number] Diagnos is: ICD-10- CM F43.10 Post-tr aumatic stress disorde r, unspeci fied MARK,[facility] ISTIE 08/03 [facility] Outpatient Encounter [id number] 08/06 [facility] GROUP PSYCHOTHER APY [id number] Diagnos is: ICD-10- CM F43.10 Post-tr aumatic stress disorde r, unspeci fied MARK,[facility] ISTIE 08/24 [facility] Outpatient Encounter [id number] 08/28 [facility] GROUP PSYCHOTHER APY [id number] Diagnos is: ICD-10- CM F43.10 Post-tr aumatic stress disorde r, unspeci fied MARK,[facility] ISTIE 08/31 [facility] OFFICE O/P EST MOD 30 MIN [id number] Diagnos is: ICD-10- CM R97.20 Elevate d prostat e specifi c antigen [PSA] FATOU JOE NA 09/08 [facility] PSYTX W PT W E/M 30 MIN [id number] Diagnos is: ICD-10- CM F43.12 Post-tr aumatic stress disorde r, chronic FELICIANO,P CARLA B 09/08 [facility] GROUP PSYCHOTHER APY [id number] Diagnos is: ICD-10- CM F43.10 Post-tr aumatic stress disorde r, unspeci fied MARK,[facility] ISTIE 09/14 [facility] GROUP PSYCHOTHER APY [id number] 1. Diagnos is: ICD-10- CM F43.10 Post-tr aumatic stress disorde r, unspeci fied MARK,[facility] ISTIE 09/21 [facility] GROUP PSYCHOTHER APY [id number] 1. Diagnos is: ICD-10- CM F43.10 Post-tr aumatic stress disorde r, unspeci fied MARK,[facility] ISTIE 10/05 [facility] GROUP PSYCHOTHER APY [id number] Diagnos is: ICD-10- CM F43.10 Post-tr aumatic stress disorde r, unspeci fied MARK,[facility] ISTIE 10/12 [facility] QNHP OL DIG ASSMT&MGMT 21+ [id number] Diagnos is: ICD-10- CM F43.12 Post-tr aumatic stress disorde r, chronic LABELLA,KE RI DONAL 10/15 [facility] GROUP PSYCHOTHER APY [id number] Diagnos is: ICD-10- CM F43.10 Post-tr aumatic stress disorde r, unspeci fied MARK,[facility] ISTIE 10/19 [facility] HC PRO PHONE CALL 5-10 MIN [id number] Diagnos is: ICD-10- CM F43.12 Post-tr aumatic stress disorde r, chronic LABELLA,KE RI DONAL 10/27 [facility] GROUP PSYCHOTHER APY [id number] Diagnos is: ICD-10- CM F43.10 Post-tr aumatic stress disorde r, unspeci fied MARK,CH[facility] ISTIE 11/02 [facility] GROUP PSYCHOTHER APY [id number] Diagnos is: ICD-10- CM F43.10 Post-tr aumatic stress disorde r, unspeci fied MARK,[facility] ISTIE 11/23 [facility] Out[facility] Encounter [id number] 11/26 [facility] GROUP PSYCHOTHER APY [id number] Diagnos is: ICD-10- CM F43.10 Post-tr aumatic stress disorde r, unspeci fied MARK,CH[facility] ISTIE 11/30 [facility] GROUP PSYCHOTHER APY [id number] Diagnos is: ICD-10- CM F43.10 Post-tr aumatic stress disorde r, unspeci fied MARK,[facility] ISTIE 12/07 [facility] Out[facility] En[facility] [id number]/15 [facility] Out[facility] Encounter [id number] 12/15 [facility] GROUP PSYCHOTHER APY [id number] Diagnos is: ICD-10- CM F43.10 Post-tr aumatic stress disorde r, unspeci fied MARK,[facility] ISTIE 12/21 [facility] GROUP PSYCHOTHER APY [id number] Diagnos is: ICD-10- CM F43.10 Post-tr aumatic stress disorde r, unspeci fied MARK,[facility] ISTIE 12/28 [facility] GROUP PSYCHOTHER APY [id number] Diagnos is: ICD-10- CM F43.10 Post-tr aumatic stress disorde r, unspeci fied MARK,CH[facility] ISTIE 01/04 [facility] Out[facility] Encounter [id number] 01/11 [facility] GROUP PSYCHOTHER APY [id number] Diagnos is: ICD-10- CM F43.10 Post-tr aumatic stress disorde r, unspeci fied MARK,[facility] ISTIE 01/11 [facility] CASE MGMT-ORAL HEALTH LIT [id number] Diagnos is: ICD-10- CM K03.6 Deposit s [accret ions] on teeth BELTERESA,N ADEZHDA 01/12 [facility] GROUP PSYCHOTHER APY [id number] Diagnos is: ICD-10- CM F43.10 Post-tr aumatic stress disorde r, unspeci fied MARK,[facility] ISTIE 01/18 [facility] GROUP PSYCHOTHER APY [id number] Diagnos is: ICD-10- CM F43.10 Post-tr aumatic stress disorde r, unspeci fied MARK,[facility] ISTIE 02/01 [facility] GROUP PSYCHOTHER APY [id number] Diagnos is: ICD-10- CM F43.10 Post-tr aumatic stress disorde r, unspeci fied MARK,[facility] ISTIE 02/08 [facility] GROUP PSYCHOTHER APY [id number] Diagnos is: ICD-10- CM F43.10 Post-tr aumatic stress disorde r, unspeci fied MARK,[facility] ISTIE 02/15 [facility] GROUP PSYCHOTHER APY [id number] Diagnos is: ICD-10- CM F43.10 Post-tr aumatic stress disorde r, unspeci fied MARK,[facility] ISTIE 02/22 [facility] Outpatient Encounter [id number] 03/02 [facility] GROUP PSYCHOTHER APY [id number] Diagnos is: ICD-10- CM F43.10 Post-tr aumatic stress disorde r, unspeci fied MARK,CH[facility] ISTIE 03/08 [facility] OFFICE O/P EST MOD 30 MIN [id number] Diagnos is: ICD-10- CM I77.810 Thoraci c aortic ectasia FURCOLO,TI NA 03/09 [facility] GROUP PSYCHOTHER APY [id number] Diagnos is: ICD-10- CM F43.12 Post-tr aumatic stress disorde r, chronic MARK,[facility] ISTIE 04/05 [facility]CH[facility] [id number] Diagnos is: ICD-10- CM F43.10 Post-tr aumatic stress disorde r, unspeci fied MARK,CH[facility] ISTIE 04/19 [facility] HEARING AID REPAIR/MOD IFYING [id number] Diagnos is: ICD-10- CM Z46.1 Encount er for fitting and adjustm ent of hearing aid ANGIE KU I 04/19 [facility]CHOTHER [facility] [id number] Diagnos is: ICD-10- CM F43.10 Post-tr aumatic stress disorde r, unspeci fied MARK,CH[facility] ISTIE 04/26 [facility] [id number] Diagnos is: ICD-10- CM F43.10 Post-tr aumatic stress disorde r, unspeci fied MARK,[facility] ISTIE 05/03 [facility] GROUP PSYCHOTHER APY [id number] Diagnos is: ICD-10- CM F43.10 Post-tr aumatic stress disorde r, unspeci fied MARK,[facility] ISTIE 05/10 [facility] GROUP PSYCHOTHER APY [id number] Diagnos is: ICD-10- CM F43.10 Post-tr aumatic stress disorde r, unspeci fied MARK,[facility] ISTIE 05/17 [facility] GROUP PSYCHOTHER APY [id number] Diagnos is: ICD-10- CM F43.10 Post-tr aumatic stress disorde r, unspeci fied MARK,CH[facility] ISTIE 05/24 [facility] Out[facility] Encounter [id number] 05/26 [facility] GROUP PSYCHOTHER APY [id number] Diagnos is: ICD-10- CM F43.10 Post-tr aumatic stress disorde r, unspeci fied MARK,CH[facility] ISTIE 05/31 [facility] Out[facility] Encounter [id number] 06/02 [facility] [id number] Diagnos is: ICD-10- CM F43.12 Post-tr aumatic stress disorde r, chronic MARK,CH[facility] ISTIE 06/07 [facility] GROUP PSYCHOTHER APY [id number] Diagnos is: ICD-10- CM F43.10 Post-tr aumatic stress disorde r, unspeci fied MARK,[facility] ISTIE 06/14 [facility] GROUP PSYCHOTHER APY [id number] Diagnos is: ICD-10- CM F43.10 Post-tr aumatic stress disorde r, unspeci fied MARK,[facility] ISTIE 06/21 [facility] Social History Combined list of available smoking, tobacco, and other social history from Department of Defense and Veterans Affairs facilities. Social History Type Response Date Comment Source Tobacco smoking status [facility] VA-TOBACCO USE FORMER CIGARETTES 03/09/2025 [facility] History of tobacco use VA-TOBACCO NEVER USED OTHER TYPE 03/09/2025 [facility] History of tobacco use VA-TOBACCO FORMER USER 03/09/2024 [facility] History of tobacco use VA-TOBACCO QUIT 15 YRS OR MORE 03/18/2023 [facility] History of tobacco use VA-TOBACCO FORMER USER 01/11/2022 [facility] History of tobacco use VA-TOBACCO FORMER USER 12/26/2020 [facility] History of tobacco use VA-TOBACCO QUIT 15 YRS OR MORE 12/08/2019 [facility] History of tobacco use SC-TOBACCO QUIT 15 YRS OR MORE 10/14/2018 [facility] History of tobacco use QUIT TOBACCO USE > 7 YEARS AGO 12/12/2017 quit > 30 yrs ( 2-3 pks a day) [facility] Plan of Care List of future care activities from VA hospital facilities. Additional future care activities may be listed in the Assessment and Plan section. Date/Time Care Activity Care Activity Detail Facili ty 07/05/2025 AMBULATORY - PSYCHIATRY AMBULATORY - PSYC HIATRY [facility] Advance Directives List of completed, amended, or rescinded Advance Directives on record at VA hospital facilities. An actual copy of the Directive is not included. Date Advance Directive Provider Source 02/09/2019 ADVANCE DIRECTIVE VAN MORENO [facility] 02/08/2019 ADVANCE DIRECTIVE [facility]
--- OUTSIDE RECORDS SUMMARY | 2025-06-30 10:24 | XMS_ITS | Patient Health Record ---
Author Organization [facility] Address [address] [place] [address] Care Team Providers Care Technology Specialist Name Role Phone Edwin Bradley Primary Care Provider Unavailab Osman Jeong Unavailable [phone] Allergies Allergen (clinical drug ingredient) Drug/Non Drug [...] atherosclerosis of arteries of lower limbs (disorder) ([id number] ) Atherosclerosis of hamilton artery of both lower extremities, with unspecified presence of clinical manifestation (I70.203) Active confirmed Vital Signs Blood pressure diastolic 70 mm Hg 05/04/2025 Height 6ft 2in in 05/04/2025 Blood pressure systolic 126 mm Hg 05/04/2025 Weight 186 lbs 05/04/2025 BMI 23.88 kg/m2 05/04/2025 Procedures Procedure Date Ordered Date Performed Result Body Sit e 14306-WJPOBHU NAIL, 6 OR MORE 07/28/2024 N/A 57630-WDFB SKIN LESIONS, OVER 4 07/28/2024 N/A 80384-MQVGZFA NAIL, 6 OR MORE 11/03/2024 N/A 64766-DECI SKIN LESIONS, OVER 4 11/03/2024 N/A 26365-LZHHLYQ NAIL, 6 OR MORE 02/02/2025 N/A 73634-LXRB SKIN LESIONS, OVER 4 02/02/2025 N/A 17971-CBFJPKD NAIL, 6 OR MORE 05/04/2025 N/A 03012-MAZT SKIN LESIONS, OVER 4 05/04/2025 N/A Encounters Encounter Location Date Provider Diagnosis [facility] [address] [address] 07/28/2024 Osman Blanc Atherosclerosis of hamilton artery of both lower extremities, with unspecified presence of clinical manifestation I70.203 ; Tinea unguium B35.1 ; Pain in right toe(s) M79.674 and Pain in left toe(s) M79.[address] [facility] [address] 11/03/2024 Osman Blanc Atherosclerosis of hamilton artery of both lower extremities, with unspecified presence of clinical manifestation I70.203 ; Tinea unguium B35.1 ; Pain in right toe(s) M79.674 and Pain in left toe(s) M79.[address] [address] 02/02/2025 Osman Hernandezunier Atherosclerosis of hamilton artery of both lower extremities, with unspecified presence of clinical manifestation I70.203 ; Tinea unguium B35.1 ; Pain in right toe(s) M79.674 and Pain in left toe(s) M79.[address] [address] 05/04/2025 Osman Hernandezunier Atherosclerosis of hamilton artery of both lower extremities, with unspecified presence of clinical manifestation I70.203 ; Tinea unguium B35.1 ; Pain in right toe(s) M79.674 ; Pain in left toe(s) M79.675 and Xerosis of skin L85.3 Assessments Encounter Date Diagnosis (ICD Code) Assessment Notes Treatment Notes Treatment Clinical Notes Section Notes 07/28/2024 Tinea unguium (ICD-10 - B35.1) 07/28/2024 Atherosclerosis of hamilton artery of both lower extremities, with unspecified presence of clinical manifestation (ICD-10 - I70.203) 11/03/2024 Tinea unguium (ICD-10 - B35.1) 11/03/2024 Atherosclerosis of hamilton artery of both lower extremities, with unspecified presence of clinical manifestation (ICD-10 - I70.203) 02/02/2025 Tinea unguium (ICD-10 - B35.1) 02/02/2025 Atherosclerosis of hamilton artery of both lower extremities, with unspecified presence of clinical manifestation (ICD-10 - I70.203) 05/04/2025 Tinea unguium (ICD-10 - B35.1) 05/04/2025 Atherosclerosis of hamilton artery of both lower extremities, with unspecified [...] Treatment Pending Test Test Name Order Date 43728-MQQEWZY NAIL, 6 OR MORE 04/10/2022 54037-GTSJVKE NAIL, 6 OR MORE 07/10/2022 99205-ELVYXYO NAIL, 6 OR MORE 10/12/2022 92326-WDNRVSD NAIL, 6 OR MORE 01/25/2023 63325-UBRREJN NAIL, 6 OR MORE 04/23/2023 02170-OKPESDM NAIL, 6 OR MORE 07/26/2023 95787-TDLVPUK NAIL, 6 OR MORE 11/01/2023 35498-YNXCQSM NAIL, 6 OR MORE 01/31/2024 79206-ZSDQWCU NAIL, 6 OR MORE 05/05/2024 96400-QILSFKI NAIL, 6 OR MORE 07/28/2024 73603-EAIPUFA NAIL, 6 OR MORE 11/03/2024 25102-QARHNGC NAIL, 6 OR MORE 02/02/2025 43406-XDSRUFY NAIL, 6 OR MORE 05/04/2025 86701-UFGF SKIN LESIONS, OVER 4 05/04/20 25 34986-XBDA SKIN LESIONS, OVER 4 02/03/20 25 29310-XLFP SKIN LESIONS, OVER 4 11/03/19 25 66796-KXLM SKIN LESIONS, OVER 4 07/28/20 24 06246-AOEG SKIN LESIONS, OVER 4 05/05/20 24 27573-IWMI SKIN LESIONS, OVER 4 01/31/20 24 13524-NVOV SKIN LESIONS, OVER 4 11/01/19 24 30202-HHCE SKIN LESIONS, OVER 4 07/26/20 23 94125-ACYS SKIN LESIONS, OVER 4 04/23/20 23 19199-SHGL SKIN LESIONS, OVER 4 01/26/20 23 73397-HWAW SKIN LESIONS, OVER 4 10/12/20 22 16502-QQSR SKIN LESIONS, OVER 4 07/10/20 22 72242-ZHHG SKIN LESIONS, OVER 4 04/10/20 Next Appt Details Provider Name:Osman Blanc , 08/03/2025 09:00:00 AM, [address] [place], [address], Insurance Providers Payer Name Payer Address Payer Phone Subscriber Number Group Number Insured Name Patient Relationship to Insured Coverage Start Date Coverage End Date [employer] Medicare [id number] [address] [address] [place] [address] [id number] Lynette Sanchez Self - patient is the insured Medical (General) History Medical History History ICD Code high blood pressure measles chicken pox bone implants Joint implants/screws Cholesterol Surgical History Surgery Date(Month/Year) right hip surgery 07/2015 Hospitalization History Reason Date(Month/Year) [facility]- Unknown Headache Ede natalie for 5 days same day took off med simvastatin 12/25/22
--- OUTSIDE RECORDS SUMMARY | 2025-06-30 10:25 | XMS_ITS | Patient Health Record ---
Author Organization [facility] Address [address] [place] [address] Care Team Providers Care Coagulating Bath Operator Name Role Phone Wenceslao MALHOTRA, Kleber Primary Care Provider Michael Daily [phone] Allergies Allergen (clinical drug ingredient) Drug/Non Drug [...] Problem Status W/U Status Risk Notes Problem 429048317 Encounter for screening for malignant neoplasm of colon (Z12.11) Active confirmed Problem 395254498 Elevated liver function tests (R79.89) Active confirmed Problem [id number] Preprocedural examination (Z01.818) Active confirmed Problem 924255586 Alcohol-induced acute pancreatitis, 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 screening colonoscopy in 08/2010 an d in 10/2020 Pancreatitis in 2018 due to EtOH Diverticulosis Aseptic necrosis R/hip Surgical History Surgery Date(Month/Year) Right hip replacement 08/2005 Tonsillectomy
== END 2025-06-30 09:35 | disposition home or self-care (01) ==
LOC: HO.HMGAL 09:32
PROVIDERS: PCP Physician Assistant; Visit Provider Registered Nurse Emergency
DX: J30.89 Other allergic rhinitis (principal)
CPT/HCPCS: 95117; 95165

== ENCOUNTER 2025-07-14 08:52 | Outpatient (AMB) | payer MEDICARE, SELFPAY ==
--- OUTSIDE RECORDS SUMMARY | 2025-07-14 10:24 | XMS_ITS | Patient Health Record ---
Author Organization [facility] Address [address] [place] [address] Care Team Providers Care Paedodontist Name Role Phone Wenceslao MALHOTRA, Kleber Primary Care Provider Michael Daily [phone] Allergies Allergen (clinical drug ingredient) Drug/Non Drug [...] Problem Status W/U Status Risk Notes Problem 213633463 Encounter for screening for malignant neoplasm of colon (Z12.11) Active confirmed Problem 169744278 Elevated liver function tests (R79.89) Active confirmed Problem 521563583960973 Preprocedural examination (Z01.818) Active confirmed Problem 668931263 Alcohol-induced acute pancreatitis, 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 screening colonoscopy in 08/2010 an d in 10/2020 Pancreatitis in 2018 due to EtOH Diverticulosis Aseptic necrosis R/hip Surgical History Surgery Date(Month/Year) Right hip replacement 08/2005 Tonsillectomy
--- OUTSIDE RECORDS SUMMARY | 2025-07-14 10:25 | XMS_ITS | Patient Health Record ---
Author Organization [facility] [place] Address [address] [address] Care Team Providers Care Cut Off Saw Operator Metal Name Role Phone Edwin Bradley Primary Care Provider Unavailab Osman Jeong Unavailable [phone] Allergies Allergen (clinical drug ingredient) Drug/Non Drug [...] Once a day; Duration: 30 day(s) Active Ammonium Lactate 12 % APPLY EXTERNALY TW ICE DAILY X 30 DAYS; Duration: 30 Active Jessica Allergy 180 MG 1 tablet [...] atherosclerosis of arteries of lower limbs (disorder) ([id number] ) Atherosclerosis of [place] artery of both lower extremities, with unspecified presence of clinical manifestation (I70.203) Active confirmed Vital Signs Blood pressure diastolic 70 mm Hg 05/04/2025 Height 6ft 2in in 05/04/2025 Blood pressure systolic 126 mm Hg 05/04/2025 Weight 186 lbs 05/04/2025 BMI 23.88 kg/m2 05/04/2025 Procedures Procedure Date Ordered Date Performed Result Body Sit e 05742-BQYQDJL NAIL, 6 OR MORE 07/28/2024 N/A 81644-ORAI SKIN LESIONS, OVER 4 07/28/2024 N/A 21970-LAATUDA NAIL, 6 OR MORE 11/03/2024 N/A 68961-VRRV SKIN LESIONS, OVER 4 11/03/2024 N/A 07297-VZKVUJT NAIL, 6 OR MORE 02/02/2025 N/A 02613-WXOA SKIN LESIONS, OVER 4 02/02/2025 N/A 54343-YKBKUTX NAIL, 6 OR MORE 05/04/2025 N/A 75210-EALI SKIN LESIONS, OVER 4 05/04/2025 N/A Encounters Encounter Location Date [facility] [address] 07/28/2024 Osman Blanc Atherosclerosis of [place] artery of both lower extremities, with unspecified presence of clinical manifestation I70.203 ; Tinea unguium B35.1 ; Pain in right toe(s) M79.674 and Pain in left toe(s) M79.675 [facility] [address] 11/03/2024 Osman Blanc Atherosclerosis of [place] artery of both lower extremities, with unspecified presence of clinical manifestation I70.203 ; Tinea unguium B35.1 ; Pain in right toe(s) M79.674 and Pain in left toe(s) M79.[address] [address] 02/02/2025 Osman Jayashree Atherosclerosis of [place] artery of both lower extremities, with unspecified presence of clinical manifestation I70.203 ; Tinea unguium B35.1 ; Pain in right toe(s) M79.674 and Pain in left toe(s) M79.[address] [address] 05/04/2025 Osman Ajyashree Atherosclerosis of [place] artery of both lower extremities, with unspecified presence of clinical manifestation I70.203 ; Tinea unguium B35.1 ; Pain in right toe(s) M79.674 ; Pain in left toe(s) M79.675 and Xerosis of skin L85.3 Assessments Encounter Date Diagnosis (ICD Code) Assessment Notes Treatment Notes Treatment Clinical Notes Section Notes 07/28/2024 Tinea unguium (ICD-10 - B35.1) 07/28/2024 Atherosclerosis of [place] artery of both lower extremities, with unspecified presence of clinical manifestation (ICD-10 - I70.203) 11/03/2024 Tinea unguium (ICD-10 - B35.1) 11/03/2024 Atherosclerosis of [place]ongo artery of both lower extremities, with unspecified presence of clinical manifestation (ICD-10 - I70.203) 02/02/2025 Tinea unguium (ICD-10 - B35.1) 02/02/2025 Atherosclerosis of [place] artery of both lower extremities, with unspecified presence of clinical manifestation (ICD-10 - I70.203) 05/04/2025 Tinea unguium (ICD-10 - B35.1) 05/04/2025 Atherosclerosis of mor[place] artery of both lower extremities, with unspecified [...] Treatment Pending Test Test Name Order Date 57244-RKXRYEK NAIL, 6 OR MORE 04/10/2022 98634-LSIJAYE NAIL, 6 OR MORE 07/10/2022 99275-TDFEZPP NAIL, 6 OR MORE 10/12/2022 75866-HHJCVPT NAIL, 6 OR MORE 01/25/2023 18514-GNHSQOC NAIL, 6 OR MORE 04/23/2023 24833-YBIRFUV NAIL, 6 OR MORE 07/26/2023 25861-QWPRFWV NAIL, 6 OR MORE 11/01/2023 45077-CVNMSEL NAIL, 6 OR MORE 01/31/2024 59457-QJQJPGF NAIL, 6 OR MORE 05/05/2024 07991-AZKMZRG NAIL, 6 OR MORE 07/28/2024 81992-KEWROXJ NAIL, 6 OR MORE 11/03/2024 07392-WDGMWWT NAIL, 6 OR MORE 02/02/2025 69597-TUPPMMK NAIL, 6 OR MORE 05/04/2025 64184-CWSB SKIN LESIONS, OVER 4 05/04/20 25 61452-XLNG SKIN LESIONS, OVER 4 02/03/20 25 97573-ALRI SKIN LESIONS, OVER 4 11/03/19 25 69305-GAWZ SKIN LESIONS, OVER 4 07/28/20 24 89210-NEZC SKIN LESIONS, OVER 4 05/05/20 24 59060-UXQN SKIN LESIONS, OVER 4 01/31/20 24 26909-BOKI SKIN LESIONS, OVER 4 11/01/19 24 13794-RQPY SKIN LESIONS, OVER 4 07/26/20 23 42363-DBTW SKIN LESIONS, OVER 4 04/23/20 23 87941-NOOM SKIN LESIONS, OVER 4 01/26/20 23 19539-UNNT SKIN LESIONS, OVER 4 10/12/20 22 13053-WMZA SKIN LESIONS, OVER 4 07/10/20 22 82245-TXJQ SKIN LESIONS, OVER 4 04/10/20 Next Appt Details Provider Name:Osman Blanc , 08/03/2025 09:00:00 AM, [address] [place], [address], Insurance Providers Payer Name Payer Address Payer Phone Subscriber Number Group Number Insured Name Patient Relationship to Insured Coverage Start Date Coverage End Date [employer] Medicare Adv-[id number] [address] [address] [place] [phone] [id number] Lynette Sanchez Self - patient is the insured Medical (General) History Medical History History ICD Code high blood pressure measles chicken pox bone implants Joint implants/screws Cholesterol Surgical History Surgery Date(Month/Year) right hip surgery 07/2015 Hospitalization History Reason Date(Month/Year) [facility] [place] Headache Ede natalie for 5 days same day took off med simvastatin 12/25/22
== END 2025-07-14 09:00 | disposition home or self-care (01) ==
LOC: HO.HMGAL 08:52
PROVIDERS: PCP Physician Assistant; Visit Provider Registered Nurse Emergency
DX: J30.89 Other allergic rhinitis (principal)
CPT/HCPCS: 95117; 95165

== ENCOUNTER 2025-07-19 08:14 | Outpatient (AMB) | payer MEDICARE, SELFPAY ==
[2025-07-19 08:18] VITALS: BP 138/70; PULSE 68; TEMP 36.1; O2SAT 98; BMI 26.2
--- NOTE | 2025-07-19 08:18 | MHC.PC.OV ---
Vital Signs 07/19/25 08:18 Height 6 ft Weight 193 lb 2 oz BMI 26.2 BP 138/70 Blood Pressure Location Lt brachial Position Sitting Pulse 68 Pulse Source Pulse Oximeter Temp 97.0 F Temp Source Temporal Artery Scan Pulse Oximetry (%) 98 Oxygen Delivery Method Room Air Intake Visit Reasons: f/u HTN/ HLD Allergies bee pollen (BEE STINGS) Allergy (Mild, Verified 07/19/25 08:25) SWELLING SHELLFISH Allergy (Severe, Uncoded 07/19/25 08:25) SWELLING Medication List - Last Reconciled 07/19/25 by Edwin Bradley PA-C amlodipine 5 mg PO DAILY ammonium lactate 12% appl topical BID benazepril 20 mg PO DAILY fexofenadine (Jessica Allergy) 180 mg PO DAILY finasteride 5 mg PO DAILY 90 days rosuvastatin 20 mg PO DAILY Tobacco use date assessed: 07/19/25 Fall risk assessment: No Falls in past year Last assessed Fall Risk: 07/19/25 Dental Screening Dental Screen Date: 07/19/25 Did you have a dental visit in the last 12 months?: Yes Did you have a dental problem in the last 6 months where you did not have access to dental care?: No Was dental information given to patient?: Patient has dentist HPI f/u HTN/ HLD HPI Details Patient is a 75-year-old male here today for follow-up visit. Patient is a [employer] . Patient has a past medical history significant for BPH, hypertension, hyperlipidemia. .. Hypertension: Patient adherent to his antihypertensive medication. Today's blood pressure acceptable in office. .. Hyperlipidemia: Patient's lipid panel has been stable. Continues on rosuvastatin 20 mg with good effect. .. Microcytic anemia: The patient has a history of anemia, characterized by a lower cell count and smaller cell size, which has been present since 2020. Iron levels have been checked and are within normal limits, indicating that the anemia is likely due to chronic microcytosis. Nurse practitioner [facility] primary care office .. BPH: Patient followed by Urology here in [place]. Most recent PSAs were noted to be elevated has been started on finasteride and noted a significant drop in his PSA. He denies any urinary symptoms. . Laboratory Tests 02/08/21 01/11/25 05/20/25 07:04 07:04 06:30 WBC RBC Hgb Hct MCV 78.3 L Iron Total PSA 9.11 H Urine Microalbumin 11.0 05/20/25 06/08/25 06:33 13:05 WBC 4.6 L RBC 5.34 Hgb 13.7 L Hct 41.3 L MCV 77.3 L Iron 100 Total PSA 3.58 Urine Microalbumin PFSH Medical History Hx of pancreatitis Hyperlipidemia HTN (hypertension) Surgical History Hx of colonoscopy History of arthroplasty of right hip History of rectal polypectomy History of tonsillectomy Family History Father Diabetes Hypertension Prostate cancer Mother Alzheimers disease Social History Housing: House Are you a primary skin care technician to a significant other at home: No Do you presently have visiting nurse or other home services: No Alcohol intake: former Year quit: 2018 Patient Tobacco Use Status: Former Tobacco user Tobacco use type: Cigarette e-Cigarette/Vaping Use: Never Used Second Hand Smoke Exposure: No service: Yes Current occupational status: retired Cognitive needs: No Hearing needs: Yes (hearing aides) Vision needs: Yes (glasses) Questionnaire PHQ-9 Over the last 2 weeks, how often have you been bothered by any of the following problems? 1. Little interest or pleasure in doing things: not at all 2. Feeling down, depressed, or hopeless: not at all 3. Trouble falling or staying asleep, or sleeping too much: not at all 4. Feeling tired or having little energy: not at all 5. Poor appetite or overeating: not at all 6. Feeling bad about yourself - or that you are a failure or have let yourself or your family down: not at all 7. Trouble concentrating on things, such as reading the newspaper or watching television: not at all 8. Moving or speaking so slowly that other people could have noticed. Or the opposite - being so fidgety or restless that you have been moving around a lot more than usual: not at all 9. Thoughts that you would be better off or of hurting yourself in some way: not at all Total score: 0 Depression Screening Interpretation: Negative Depression Screening Done: Yes 82705 - PHQ-9 Billing: Yes Source: Developed by Drs. Michael Anaya, Eladia Wallace, Orlando Coats and colleagues, with an educational rachel from [employer]. Thrive Questionnaire Date Thrive assessed: 11/26/24 I am a: Patient What is your living situation today?: I have a steady place to live Within the past 12 months, did the food you bought not last and you didn't have the money to get more?: Never true Within the past 12 months, did you worry whether your food would run out before you got money to buy more?: Never true Do you have trouble paying for medicines?: No Do you have trouble getting transportation to medical appointments?: No Do you have trouble paying your heating and electricity bill?: No Do you have trouble taking care of your child, family member or friend?: No Do you have trouble with day-to-day activities such as bathing, preparing meals, shopping, managing finances, etc.?: No Are you currently unemployed and looking for a job?: No Are you interested in more education?: No Please select the resources that you would like help with: None Currently or been in a relationship where the following occur: No concerns reported THRIVE Score: 0 AUDIT C Alcohol Use Questionnaire (AUDIT-C) 1. How often do you have a drink containing alcohol?: 2-4 times a month 2. How many drinks containing alcohol do you have on a typical day when you are drinking?: 1 or 2 3. How often do you have six or more drinks on one occasion?: Never Total Score: 2 RADHA-7 AMB Questionnaire RADHA-7 Date RADHA - 7 assessed: 12/03/24 Feeling nervous, anxious, or on edge: 0 = Not at all Not being able to stop or control worryin = Not at all Worrying too much about different things: 0 = Not at all Trouble relaxin = Not at all Being so restless that it is hard to sit still: 0 = Not at all Becoming easily annoyed or irritable: 0 = Not at all Feeling afraid as if something awful might happen: 0 = Not at all Total RADHA-7 score (0-4 normal; 5-9 mild; 10-14 moderate; 15-21 severe): 0 Source: Developed by Drs. Michael Anaya, Eladia Wallace, Orlando Coats and colleagues, with an educational rachel from [employer]. RADHA-7 Assessment Billing RADHA-7 Assessment Tool: RADHA-7 Assessment 44331 Review of Systems Const Denies headache(s) Eyes Denies loss of vision ENT Denies vertigo, Denies dizziness, Denies headache(s) and Denies sore throat Card Denies chest pain, Denies leg edema and Denies lightheadedness Resp Denies cough, Denies hemoptysis and Denies wheezing GI Denies abdominal pain, Denies melena, Denies constipation, Denies diarrhea and Denies vomiting Denies dysuria, Denies urinary frequency and Denies urinary urgency Musc Denies arthralgias, Denies joint swelling, Denies numbness and Denies tingling Neuro Denies Abnormal speech present, Denies behavioral changes, Denies vertigo, Denies dizziness, Denies headache(s), Denies loss of vision, Denies memory loss, Denies numbness and Denies tingling Psych Denies anxiety, Denies behavioral changes, Denies depression, Denies memory loss and Denies panic attacks Cuauhtemoc/Lymph Denies easy bleeding and Denies easy bruising Aller/Immun Denies wheezing Physical exam (Primary Care) Vital Signs: Last Vital Signs Temp 97.0 F 07/19/25 08:18 Pulse 68 07/19/25 08:18 BP 138/70 07/19/25 08:18 Pulse Ox 98 07/19/25 08:18 Oxygen Delivery Method Room Air 07/19/25 08:18 BMI result Body Mass Index 26.2 Tobacco/Smoking Status: Tobacco use Status Tobacco use date assessed 07/19/25 07/19/25 08:22 Patient Tobacco Use Status Former Tobacco user 07/19/25 08:22 Tobacco use type Cigarette 07/19/25 08:22 e-Cigarette/Vaping Use Never Used 07/19/25 08:22 PHQ-9: PHQ-9 Score PHQ-9: Total score 0 07/19/25 08:22 Depression Screening Interpretation: Negative Thrive Assessment: Date of Thrive Assessment Date Thrive assessed 11/26/24 07/19/25 08:22 Currently or been in a relationship where the following occur: No concerns reported Const General: healthy appearing, no acute distress, alert and awake Nutritional Appearance: well nourished Orientation/consciousness: oriented to person, oriented to place and oriented to time HENMT Ears: TM's normal bilaterally General nose exam: Normal nasal mucous membranes and turbinates present Eyes Conjunctivae: conjunctivae normal Sclerae: sclerae normal Pupils: Equal, round and reactive pupils present Neck Neck: Yes no lymphadenopathy and Yes no JVD Thyroid: Thyroid normal Carotids: no bruits Resp Effort & Inspection: normal respiratory effort and not tachypneic Auscultation: no crackles, no rales, no rhonchi and no wheezes Cardio Rate: regular rate Rhythm: regular rhythm Heart sounds: no murmurs and normal S1 and S2 GI Palpation (GI): Soft to palpation, nontender, no hepatomegaly and no splenomegaly Auscultation: normal bowel sounds Skin General skin exam: no rashes or lesions noted and dry skin Neuro General: oriented to person, oriented to place and oriented to time Cranial nerves: Yes Equal, round and reactive pupils present Speech: No Abnormal speech present Gait exam (Neuro): Normal gait present Motor exam (neuro): no tremor noted Extrem Right upper extremity: full ROM Left upper extremity: full ROM Right lower extremity: full ROM; no edema Left lower extremity: full ROM; no edema Psych Mental Status: mental status grossly normal Speech and movement: Normal speech and movement present Affect: normal affect Attitude: cooperative Thought process: Normal thought process present Coding Level of Care Code Est Pt Level 4 (49176) Diagnoses Mixed hyperlipidemia E78.2 Hyperlipidemia type: mixed hyperlipidemia Low mean corpuscular volume (MCV) R71.8 Primary hypertension I10 Hypertension type: primary hypertension BPH w urinary obs/LUTS N40.1; N13.8 Additional Codes PHQ-9 - 15032 - PHQ-9 Billing: Yes ([id number]) RADHA-7 Assessment Billing - RADHA-7 Assessment Tool: RADHA-7 Assessment 13403 ([id number]) Assessment & Plan Assessment & Plan (1) Hyperlipidemia: Code(s): E78.5 - Hyperlipidemia, unspecified Category: Medical Qualifiers: Hyperlipidemia type: mixed hyperlipidemia Qualified Code(s): E78.2 - Mixed hyperlipidemia Plan: Patient's most recent lipid panel showing good control over his total cholesterol and LDL. He will continue rosuvastatin 20 mg with goal LDL to remain below 130 (2) Low mean corpuscular volume (MCV): Code(s): R71.8 - Other abnormality of red blood cells Category: Medical Plan: Will continue to follow patient's CBC. Did check patient's iron which was normal. (3) Hypertension: Code(s): I10 - Essential (primary) hypertension Category: Medical Qualifiers: Hypertension type: primary hypertension Qualified Code(s): I10 - Essential (primary) hypertension Plan: Patient's blood pressure acceptable today in office. Will continue his current dose of antihypertensive medication with goal blood pressure to remain below 140/90 (4) BPH w urinary obs/LUTS: Code(s): N40.1 - Benign prostatic hyperplasia with lower urinary tract symptoms; N13.8 - Other obstructive and reflux uropathy Category: Medical Plan: Patient continues to follow urology, continues on finasteride with good effect. He denies any urinary symptoms. Orders: Orders Lipid Panel Today E78.2 - Mixed hyperlipidemia Complete Blood Count no Diff Today I10 - Essential (primary) hypertension Microalbumin, Random (w Creat) Today I10 - Essential (primary) hypertension Comprehensive [place]. Panel Fast Today I10 - Essential (primary) hypertension Medications: Refilled benazepril 20 mg PO DAILY 90 tabs 2RF
--- OUTSIDE RECORDS SUMMARY | 2025-07-19 09:18 | XMS_ITS | Patient Health Record ---
Author Organization [facility] [place] Address [address] [place] [address] Care Team Providers Care Tableau Lead Name Role Phone Edwin Bradley Primary Care Provider Unavailab Osman Jeong Unavailable [phone] Allergies Allergen (clinical drug ingredient) Drug/Non Drug [...] atherosclerosis of arteries of lower limbs (disorder) ([id number] ) Atherosclerosis of [place] artery of both lower extremities, with unspecified presence of clinical manifestation (I70.203) Active confirmed Vital Signs Blood pressure diastolic 70 mm Hg 05/04/2025 Height 6ft 2in in 05/04/2025 Blood pressure systolic 126 mm Hg 05/04/2025 Weight 186 lbs 05/04/2025 BMI 23.88 kg/m2 05/04/2025 Procedures Procedure Date Ordered Date Performed Result Body Sit e 60307-MLSXZUO NAIL, 6 OR MORE 07/28/2024 N/A 59878-SYMK SKIN LESIONS, OVER 4 07/28/2024 N/A 87554-CPYBTHL NAIL, 6 OR MORE 11/03/2024 N/A 68555-AEAZ SKIN LESIONS, OVER 4 11/03/2024 N/A 35185-NSGMGFO NAIL, 6 OR MORE 02/02/2025 N/A 27441-VIYI SKIN LESIONS, OVER 4 02/02/2025 N/A 30891-XATRARA NAIL, 6 OR MORE 05/04/2025 N/A 42975-BJEP SKIN LESIONS, OVER 4 05/04/2025 N/A Encounters Encounter Location Date [facility] [address] 07/28/2024 Osman Blanc Atherosclerosis of [place] artery of both lower extremities, with unspecified presence of clinical manifestation I70.203 ; Tinea unguium B35.1 ; Pain in right toe(s) M79.674 and Pain in left toe(s) M79.675 [facility] [address] 11/03/2024 Osman Blanc Atherosclerosis of [place] artery of both lower extremities, with unspecified presence of clinical manifestation I70.203 ; Tinea unguium B35.1 ; Pain in right toe(s) M79.674 and Pain in left toe(s) M79.[address] [address] 02/02/2025 Osman Jayashree Atherosclerosis of [place] artery of both lower extremities, with unspecified presence of clinical manifestation I70.203 ; Tinea unguium B35.1 ; Pain in right toe(s) M79.674 and Pain in left toe(s) M79.[address] [address] 05/04/2025 Osman Jayashree Atherosclerosis of [place] artery of both lower extremities, with unspecified presence of clinical manifestation I70.203 ; Tinea unguium B35.1 ; Pain in right toe(s) M79.674 ; Pain in left toe(s) M79.675 and Xerosis of skin L85.3 Assessments Encounter Date Diagnosis (ICD Code) Assessment Notes Treatment Notes Treatment Clinical Notes Section Notes 07/28/2024 Tinea unguium (ICD-10 - B35.1) 07/28/2024 Atherosclerosis of [place] artery of both lower extremities, with unspecified presence of clinical manifestation (ICD-10 - I70.203) 11/03/2024 Tinea unguium (ICD-10 - B35.1) 11/03/2024 Atherosclerosis of [place] artery of both lower extremities, with unspecified presence of clinical manifestation (ICD-10 - I70.203) 02/02/2025 Tinea unguium (ICD-10 - B35.1) 02/02/2025 Atherosclerosis of [place] artery of both lower extremities, with unspecified presence of clinical manifestation (ICD-10 - I70.203) 05/04/2025 Tinea unguium (ICD-10 - B35.1) 05/04/2025 Atherosclerosis of [place] artery of both lower extremities, with unspecified [...] Treatment Pending Test Test Name Order Date 65078-JEIKPXH NAIL, 6 OR MORE 04/10/2022 65528-GKWHFCW NAIL, 6 OR MORE 07/10/2022 99268-OCPLNNX NAIL, 6 OR MORE 10/12/2022 51543-JDMTHMU NAIL, 6 OR MORE 01/25/2023 02015-ZMZXWFW NAIL, 6 OR MORE 04/23/2023 54801-TFFDXSE NAIL, 6 OR MORE 07/26/2023 02793-YTANDNZ NAIL, 6 OR MORE 11/01/2023 47284-PMVTUDD NAIL, 6 OR MORE 01/31/2024 67177-BRFJBFD NAIL, 6 OR MORE 05/05/2024 79558-IMOOLRQ NAIL, 6 OR MORE 07/28/2024 79750-SQDNNCE NAIL, 6 OR MORE 11/03/2024 70311-RJPSIQQ NAIL, 6 OR MORE 02/02/2025 74323-LMPRELZ NAIL, 6 OR MORE 05/04/2025 15421-VEVQ SKIN LESIONS, OVER 4 05/04/20 25 88215-GBUV SKIN LESIONS, OVER 4 02/03/20 25 01928-ANKP SKIN LESIONS, OVER 4 11/03/19 25 13889-YDBQ SKIN LESIONS, OVER 4 07/28/20 24 56603-RHEC SKIN LESIONS, OVER 4 05/05/20 24 41505-APVH SKIN LESIONS, OVER 4 01/31/20 24 30302-UEKP SKIN LESIONS, OVER 4 11/01/19 24 41809-JUOG SKIN LESIONS, OVER 4 07/26/20 23 54942-BWWD SKIN LESIONS, OVER 4 04/23/20 23 37209-BIBT SKIN LESIONS, OVER 4 01/26/20 23 93227-LFQE SKIN LESIONS, OVER 4 10/12/20 22 82144-UYJX SKIN LESIONS, OVER 4 07/10/20 22 58127-XWLT SKIN LESIONS, OVER 4 04/10/20 Next Appt Details Provider Name:Osman Blanc , 08/03/2025 09:00:00 AM, [address] [place], [address], Insurance Providers Payer Name Payer Address Payer Phone Subscriber Number Group Number Insured Name Patient Relationship to Insured Coverage Start Date Coverage End Date [employer] Medicare [id number] [address] [address] [place] [address] [id number] Lynette Sanchez Self - patient is the insured Medical (General) History Medical History History ICD Code high blood pressure measles chicken pox bone implants Joint implants/screws Cholesterol Surgical History Surgery Date(Month/Year) right hip surgery 07/2015 Hospitalization History Reason Date(Month/[place] [facility] [place] Headache Ede natalie for 5 days same day took off med simvastatin 12/25/22
== END 2025-07-19 08:40 | disposition home or self-care (01) ==
LOC: HO.HMCH 08:14
PROVIDERS: PCP Physician Assistant; Visit Provider Physician Assistant
DX: E78.2 Mixed hyperlipidemia (principal); R71.8 Other abnormality of red blood cells; I10 Essential (primary) hypertension; N40.1 Benign prostatic hyperplasia with lower urinary tract symptoms; N13.8 Other obstructive and reflux uropathy

== ENCOUNTER → 2025-07-19 08:14 | Outpatient (BNVA) | payer MEDICARE, SELFPAY | PROVIDERS: PCP Internal Medicine; Visit Provider Physician Assistant | DX: E78.2 Mixed hyperlipidemia (principal); R71.8 Other abnormality of red blood cells; I10 Essential (primary) hypertension; N40.1 Benign prostatic hyperplasia with lower urinary tract symptoms; N13.8 Other obstructive and reflux uropathy | CPT/HCPCS: 96127; 99212 ==

== ENCOUNTER 2025-08-04 09:03 | Outpatient (AMB) | payer MEDICARE, SELFPAY | END 2025-08-04 10:03 | disposition home or self-care (01) | LOC: HO.HMGAL 09:03 | PROVIDERS: PCP Physician Assistant; Visit Provider Registered Nurse Emergency | DX: J30.89 Other allergic rhinitis (principal) | CPT/HCPCS: 95117; 95165 ==

== ENCOUNTER 2025-08-18 10:15 | Outpatient (AMB) | payer MEDICARE, SELFPAY ==
--- OUTSIDE RECORDS SUMMARY | 2025-08-18 12:36 | XMS_ITS | Patient Health Record ---
Author Organization [facility] Address [address] [place] [address] Care Team Providers Care Jack Tamp Operator Name Role Phone Wenceslao MALHOTRA, Kleber Primary Care Provider Michael Daily [phone] Allergies Allergen (clinical drug ingredient) Drug/Non Drug Allergy documented on EMR Reaction Allergy Type Onset Date Status Shellfish (FN) Shellfish-derived Products Unknown Drug Allergy Active bee pollen Bee Pollen Unknown Drug Allergy Activ e Reason For Referral No Information Medications Medication SIG (Take, Route, Frequency, Duration) Notes Start Date End Date Status Benazepril HCl 20 MG 1 tablet Orally Onc e a day; Duration: 30 day(s) Active Atorvastatin Calcium 40 MG TAKE 1 TABLET BY MOUTH DAILY Oral; Duration: 90 Active Jessica Allergy 60 MG 1 [...] Problem Status W/U Status Risk Notes Problem Screening for malignant neoplasm of colon (584886549) Encounter for screening for malignant neoplasm of colon (Z12.11) Active confirmed Problem Elevated liver enzymes level (540190929) Elevated liver function tests (R79.89) Active confirmed Problem Preprocedural examination (127930375127059) Preprocedural examination (Z01.818) Active confirmed Problem Acute pancreatitis (367528954) Alcohol-induced acute pancreatitis, 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 screening colonoscopy in 08/2010 an d in 10/2020 Pancreatitis in 2018 due to EtOH Diverticulosis Aseptic necrosis R/hip Surgical History Surgery Date(Month/Year) Right hip replacement 08/2005 Tonsillectomy
--- OUTSIDE RECORDS SUMMARY | 2025-08-18 12:37 | XMS_ITS | Patient Health Record ---
Author Organization [facility] [place] Address [address] [facility] [place] [address] Care Team Providers Care Office Employee Name Role Phone Edwin Bradley Primary Care Provider Unavailab Osman Jeong Unavailable [phone] Allergies Allergen (clinical drug ingredient) Drug/Non Drug Allergy documented on EMR Reaction Allergy Type Onset Date Status Seasonal IC Unknown Drug Allergy Activ e shrimp allergenic extract Shrimp (Diagnostic) swelling Drug [...] Orally Active Ammonium Lactate 12 % APPLY EXTERNALY TW ICE DAILY X 30 DAYS; Duration: 30 Active Simvastatin 40 MG Orally No [...] (Standard) Question Answer Notes Tobacco use: Nonsmoker Additional Findings: Tobacco non-user Current no nsmoker AUDIT-C (Standard) Question Answer Notes Did you [...] atherosclerosis of arteries of lower limbs (disorder) (96221864328786149 ) Atherosclerosis of [place] artery of both lower extremities, with unspecified presence of clinical manifestation (I70.203) Active confirmed Vital Signs Blood pressure diastolic 60 mm Hg 08/03/2025 Height 6ft 2in in 08/03/2025 Blood pressure systolic 115 mm Hg 08/03/2025 Weight 195 lbs 08/03/2025 BMI 25.03 kg/m2 08/03/2025 Procedures Procedure Date Ordered Date Performed Result Body Sit e 14634-UPIUKZR NAIL, 6 OR MORE 11/03/2024 N/A 16969-OOTD SKIN LESIONS, OVER 4 11/03/2024 N/A 10700-CTDBJNT NAIL, 6 OR MORE 02/02/2025 N/A 35388-HJTP SKIN LESIONS, OVER 4 02/02/2025 N/A 11987-CMQBEHV NAIL, 6 OR MORE 05/04/2025 N/A 50368-DSYL SKIN LESIONS, OVER 4 05/04/2025 N/A 10193-DXBKENG NAIL, 6 OR MORE 08/03/2025 N/A 43099-WYEA SKIN LESIONS, OVER 4 08/03/2025 N/A Encounters Encounter Location Date Provider Diagnosis [facility] [address] [address] 11/03/2024 Osman Blanc Atherosclerosis of [place] artery of both lower extremities, with unspecified presence of clinical manifestation I70.203 ; Tinea unguium B35.1 ; Pain in right toe(s) M79.674 and Pain in left toe(s) M79.[address] [facility] [address] 02/02/2025 Osman Blanc Atherosclerosis of [place] artery of both lower extremities, with unspecified presence of clinical manifestation I70.203 ; Tinea unguium B35.1 ; Pain in right toe(s) M79.674 and Pain in left toe(s) M79.[address] [address] 05/04/2025 Osman Hernandezunier Atherosclerosis of [place] artery of both lower extremities, with unspecified presence of clinical manifestation I70.203 ; Tinea unguium B35.1 ; Pain in right toe(s) M79.674 ; Pain in left toe(s) M79.675 and Xerosis of skin L85.[address] [address] 08/03/2025 Osman Hernandezunier Atherosclerosis of [place] artery of both lower extremities, with unspecified presence of clinical manifestation I70.203 ; Tinea unguium B35.1 ; Pain in right toe(s) M79.674 ; Pain in left toe(s) M79.675 and Xerosis of skin L85.3 Assessments Encounter Date Diagnosis (ICD Code) Assessment Notes Treatment Notes Treatment Clinical Notes Section Notes 11/03/2024 Tinea unguium (ICD-10 - B35.1) 11/03/2024 Atherosclerosis of [place] artery of both lower extremities, with unspecified presence of clinical manifestation (ICD-10 - I70.203) 02/02/2025 Tinea unguium (ICD-10 - B35.1) 02/02/2025 Atherosclerosis of [place] artery of both lower extremities, with unspecified presence of clinical manifestation (ICD-10 - I70.203) 05/04/2025 Tinea unguium (ICD-10 - B35.1) 05/04/2025 Atherosclerosis of [place] artery of both lower extremities, with unspecified presence of clinical manifestation (ICD-10 - I70.203) 08/03/2025 Tinea unguium (ICD-10 - B35.1) 08/03/2025 Atherosclerosis of [place] artery of both lower extremities, with unspecified presence of clinical manifestation (ICD-10 - I70.203) 08/03/2025 Pain in right toe(s) (ICD-10 - M79.674) 05/04/2025 Pain in right toe(s) (ICD-10 - M79.674) 11/03/2024 Pain in right toe(s) (ICD-10 - M79.674) 02/02/2025 Pain in right toe(s) (ICD-10 - M79.674) 11/03/2024 Pain in left toe(s) (ICD-10 - M79.675) 02/02/2025 Pain in left toe(s) (ICD-10 - M79.675) 05/04/2025 Pain in left toe(s) (ICD-10 - M79.675) 08/03/2025 Pain in left toe(s) (ICD-10 - M79.675) 08/03/2025 Xerosis of skin (ICD-10 - L85.3) 05/04/2025 Xerosis of skin (ICD-10 - L85.3) Plan Of Treatment Pending Test Test Name Order Date 15994-EQOZUZG NAIL, 6 OR MORE 04/10/2022 79408-MNIELLG NAIL, 6 OR MORE 07/10/2022 54192-QLJYCZG NAIL, 6 OR MORE 10/12/2022 32302-AWDRNXO NAIL, 6 OR MORE 01/25/2023 03776-EXTYNYR NAIL, 6 OR MORE 04/23/2023 84868-WMRUSXV NAIL, 6 OR MORE 07/26/2023 68403-UYLAWNO NAIL, 6 OR MORE 11/01/2023 22207-LYBQFUB NAIL, 6 OR MORE 01/31/2024 65847-JOVEKDN NAIL, 6 OR MORE 05/05/2024 23608-GTVVRRT NAIL, 6 OR MORE 07/28/2024 51773-MACHJIS NAIL, 6 OR MORE 11/03/2024 74382-GJJRJIC NAIL, 6 OR MORE 02/02/2025 72316-WGAGNSY NAIL, 6 OR MORE 05/04/2025 86995-IRCBAZB NAIL, 6 OR MORE 08/03/2025 57212-CPVJ SKIN LESIONS, OVER 4 08/03/20 25 72032-NISI SKIN LESIONS, OVER 4 05/04/20 25 10017-PJBG SKIN LESIONS, OVER 4 02/03/20 25 40108-NFIA SKIN LESIONS, OVER 4 11/03/19 25 29275-ZPBU SKIN LESIONS, OVER 4 07/28/20 24 81760-DQJE SKIN LESIONS, OVER 4 05/05/20 90712-MHAC SKIN LESIONS, OVER 4 01/31/20 83669-MWXN SKIN LESIONS, OVER 4 11/01/19 24 13880-ESLP SKIN LESIONS, OVER 4 07/26/20 22961-GNXQ SKIN LESIONS, OVER 4 04/23/20 92130-FZRU SKIN LESIONS, OVER 4 01/26/20 23 11470-NKWK SKIN LESIONS, OVER 4 10/12/20 36264-TMDE SKIN LESIONS, OVER 4 07/10/20 11249-TADN SKIN LESIONS, OVER 4 04/10/20 Next Appt Details Provider Name:Osman Blanc , 11/30/2025 09:00:00 AM, [address] [place], [address], Insurance Providers Payer Name Payer Address Payer Phone Subscriber Number Group Number Insured Name Patient Relationship to Insured Coverage Start Date Coverage End Date [employer] Medicare [id number] [address] [address] [place] [address] [id number] Lynette Sanchez Self - patient is the insured Medical (General) History Medical History History ICD Code high blood pressure measles chicken pox bone implants Joint implants/screws Cholesterol Surgical History Surgery Date(Month/Year) right hip surgery 07/2015 Hospitalization History Reason Date(Month/Year) [facility]- Unknown Headache Ede natalie for 5 days same day took off med simvastatin 12/25/22
== END 2025-08-18 10:16 | disposition home or self-care (01) ==
LOC: HO.HMGAL 10:15
PROVIDERS: PCP Physician Assistant; Visit Provider Registered Nurse Emergency
DX: J30.89 Other allergic rhinitis (principal)
CPT/HCPCS: 95117; 95165

== ENCOUNTER 2025-09-01 09:34 | Outpatient (AMB) | payer MEDICARE, SELFPAY ==
--- OUTSIDE RECORDS SUMMARY | 2025-09-01 10:42 | XMS_ITS | Patient Health Record ---
Author Organization [facility] Address [address] [place] [address] Care Team Providers Care Director Hospice Operations Name Role Phone Wenceslao MALHOTRA, Kleber Primary Care Provider Michael Daily [phone] Allergies Allergen (clinical drug ingredient) Drug/Non Drug [...] Problem Screening for malignant neoplasm of colon (666734979) Encounter for screening for malignant neoplasm of colon (Z12.11) Active confirmed Problem Elevated liver enzymes level (249400102) Elevated liver function tests (R79.89) Active confirmed Problem Preprocedural examination (305463207158844) Preprocedural examination (Z01.818) Active confirmed Problem Acute pancreatitis (659395214) Alcohol-induced acute pancreatitis, 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) Active confirmed Plan Of Treatment Pending Test Test Name Order Date LIVER PROFILE 02/28/2023 US ABD 02/28/2023 Future Test Test Name Order Date COLONOSCOPY 11/10/2020 Insurance Providers Payer Name Payer Address Payer Phone Subscriber Number Group Number Insured Name Patient Relationship to Insured Coverage Start Date Coverage End Date [facility] [address] [address] [place] [address] [id number] HIGINIO CAM Self - patient is the insured Medical (General) History Medical History History ICD Code Denies [place],DM,CVA,Lung disease,renal dise ase HTN Hyperlipidemia Neg. screening colonoscopy in 08/2010 an d in 10/2020 Pancreatitis in 2018 due to EtOH Diverticulosis Aseptic necrosis R/hip Surgical History Surgery Date(Month/Year) Right hip replacement 08/2005 Tonsillectomy
--- OUTSIDE RECORDS SUMMARY | 2025-09-01 10:42 | XMS_ITS | Patient Health Record ---
Author Organization [facility] [place] Address [address] [place] [address] Care Team Providers Care Utility System Operator Name Role Phone Edwin Bradley Primary Care Provider Unavailab Osman Jeong Unavailable [phone] Allergies Allergen (clinical drug ingredient) Drug/Non Drug [...] atherosclerosis of arteries of lower limbs (disorder) (55555684256794965 ) Atherosclerosis of [place] artery of both lower extremities, with unspecified presence of clinical manifestation (I70.203) Active confirmed Vital Signs Blood pressure diastolic 60 mm Hg 08/03/2025 Height 6ft 2in in 08/03/2025 Blood pressure systolic 115 mm Hg 08/03/2025 Weight 195 lbs 08/03/2025 BMI 25.03 kg/m2 08/03/2025 Procedures Procedure Date Ordered Date Performed Result Body Sit e 06735-XGYZXZL NAIL, 6 OR MORE 11/03/2024 N/A 85327-QWGO SKIN LESIONS, OVER 4 11/03/2024 N/A 01119-TCNTMYS NAIL, 6 OR MORE 02/02/2025 N/A 45425-BVJL SKIN LESIONS, OVER 4 02/02/2025 N/A 35373-XIPQGOF NAIL, 6 OR MORE 05/04/2025 N/A 72828-XMPZ SKIN LESIONS, OVER 4 05/04/2025 N/A 96795-SZDTFHW NAIL, 6 OR MORE 08/03/2025 N/A 79558-USZJ SKIN LESIONS, OVER 4 08/03/2025 N/A Encounters Encounter Location Date Provider Diagnosis [facility] [address] [address] 11/03/2024 Osman Blanc Atherosclerosis of [place] artery of both lower extremities, with unspecified presence of clinical manifestation I70.203 ; Tinea unguium B35.1 ; Pain in right toe(s) M79.674 and Pain in left toe(s) M79.[address] [facility] [address] 02/02/2025 Osman Blanc Atherosclerosis of [place] artery of both lower extremities, with unspecified presence of clinical manifestation I70.203 ; Tinea unguium B35.1 ; Pain in right toe(s) M79.674 and Pain in left toe(s) M79.[address] [address] 05/04/2025 Osman Hernandezunier Atherosclerosis of [place] artery of both lower extremities, with unspecified presence of clinical manifestation I70.203 ; Tinea unguium B35.1 ; Pain in right toe(s) M79.674 ; Pain in left toe(s) M79.675 and Xerosis of skin L85.[address] [address] 08/03/2025 Osman Hernandezunier Atherosclerosis of [place] artery of both lower extremities, with unspecified presence of clinical manifestation I70.203 ; Tinea unguium B35.1 ; Pain in right toe(s) M79.674 ; Pain in left toe(s) M79.675 and Xerosis of skin L85.3 Assessments Encounter Date Diagnosis (ICD Code) Assessment Notes Treatment Notes Treatment Clinical Notes Section Notes 11/03/2024 Tinea unguium (ICD-10 - B35.1) 11/03/2024 Atherosclerosis of [place] artery of both lower extremities, with unspecified presence of clinical manifestation (ICD-10 - I70.203) 02/02/2025 Tinea unguium (ICD-10 - B35.1) 02/02/2025 Atherosclerosis of [place] artery of both lower extremities, with unspecified presence of clinical manifestation (ICD-10 - I70.203) 05/04/2025 Tinea unguium (ICD-10 - B35.1) 05/04/2025 Atherosclerosis of [place] artery of both lower extremities, with unspecified presence of clinical manifestation (ICD-10 - I70.203) 08/03/2025 Tinea unguium (ICD-10 - B35.1) 08/03/2025 Atherosclerosis of [place] artery of both lower extremities, with unspecified [...] Treatment Pending Test Test Name Order Date 87556-CKSGMSM NAIL, 6 OR MORE 04/10/2022 97369-OFPQSBL NAIL, 6 OR MORE 07/10/2022 45053-ZDEOUNH NAIL, 6 OR MORE 10/12/2022 94032-DGTWAKI NAIL, 6 OR MORE 01/25/2023 57376-YGELOZP NAIL, 6 OR MORE 04/23/2023 21370-EAYCRVV NAIL, 6 OR MORE 07/26/2023 32087-DPKOLWP NAIL, 6 OR MORE 11/01/2023 35272-KJOZCRT NAIL, 6 OR MORE 01/31/2024 30912-TTIAHHQ NAIL, 6 OR MORE 05/05/2024 56549-HDAXUDT NAIL, 6 OR MORE 07/28/2024 53351-XAOFOZS NAIL, 6 OR MORE 11/03/2024 26646-WFRPROG NAIL, 6 OR MORE 02/02/2025 24108-RJJEZOR NAIL, 6 OR MORE 05/04/2025 47137-DUDGHWM NAIL, 6 OR MORE 08/03/2025 20916-TVTS SKIN LESIONS, OVER 4 08/03/20 25 47616-WLHN SKIN LESIONS, OVER 4 05/04/20 25 92193-BMRG SKIN LESIONS, OVER 4 02/03/20 25 59767-NKOM SKIN LESIONS, OVER 4 11/03/19 25 40122-VNKL SKIN LESIONS, OVER 4 07/28/20 24 68412-UMVD SKIN LESIONS, OVER 4 05/05/20 54698-QZOO SKIN LESIONS, OVER 4 01/31/20 93660-ASNR SKIN LESIONS, OVER 4 11/01/19 24 11274-BOVT SKIN LESIONS, OVER 4 07/26/20 55311-PKHP SKIN LESIONS, OVER 4 04/23/20 95994-NDSV SKIN LESIONS, OVER 4 01/26/20 23 61659-VJXL SKIN LESIONS, OVER 4 10/12/20 31539-IUQV SKIN LESIONS, OVER 4 07/10/20 15164-YXAZ SKIN LESIONS, OVER 4 04/10/20 Next Appt Details Provider Name:Osman Blanc , 11/30/2025 09:00:00 AM, [address] [place], [address], Insurance Providers Payer Name Payer Address Payer Phone Subscriber Number Group Number Insured Name Patient Relationship to Insured Coverage Start Date Coverage End Date [employer] Medicare Adv-[id number] [address] [address] [place] [address] [id number] Lynette Sanchez Self - patient is the insured Medical (General) History Medical History History ICD Code high blood pressure measles chicken pox bone implants Joint implants/screws Cholesterol Surgical History Surgery Date(Month/Year) right hip surgery 07/2015 Hospitalization History Reason Date(Month/Year) [facility]- [place] Headache Ede natalie for 5 days same day took off med simvastatin 12/25/22
== END 2025-09-01 09:34 | disposition home or self-care (01) ==
LOC: HO.HMGAL 09:34
PROVIDERS: PCP Physician Assistant; Visit Provider Registered Nurse Emergency
DX: J30.89 Other allergic rhinitis (principal)
CPT/HCPCS: 95117; 95165

== ENCOUNTER 2025-09-15 08:46 | Outpatient (AMB) | payer MEDICARE, SELFPAY ==
--- OUTSIDE RECORDS SUMMARY | 2025-09-15 16:25 | XMS_ITS | Patient Health Record ---
Author Organization [facility] Address [address] [place] [address] Care Team Providers Care Patch Setter Name Role Phone Kleber Billy MD Primary Care Provider Michael Daily [phone] Allergies Allergen (clinical drug ingredient) Drug/Non Drug Allergy documented on EMR Reaction Allergy Type Onset Date Status bee pollen Bee Pollen Unknown Drug Allergy Activ e Shellfish (FN) Shellfish-derived Products Unknown Drug Allergy Active Reason For Referral No Information Medications Medication SIG (Take, Route, Frequency, Duration) Notes Start Date End Date Status Benazepril HCl 20 MG Tablet 1 tablet Ora lly Once a day; Duration: 30 day(s) Active Atorvastatin Calcium 40 MG Tablet TAKE 1 TABLET BY MOUTH DAILY Oral; Duration: 90 Active Jessica Allergy 60 MG Tablet 1 tablet as needed Orally Twice a day Active Immunizations Vaccine Route Administration Date Status Comme nts Influenza Unknown 08/05/2018 Administered Influenza Unknown 07/28/2020 Administered Social History Tobacco Use: Social History Observation Description Date Details (start date - stop date) Former Smoker NA - NA Social History Drugs/Alcohol: Social Info Question Answer Notes Alcohol Screen Did you have a drink containing alcohol in the past year? No Points 0 Interpretation Negative Tobacco Use: Social Info Question Answer Notes Tobacco Use/Smoking Patient is a former smoker How long has it been since you last smoked? > 10 years Additional Details Category Social Info Options Details Miscellaneous: Marital status: Occupation: retired Section Notes: Nonsmoker; no alcohol sicne 01/2018 Nonsmoker; no alcohol since 01/2018 Nonsmoker; no alcohol since 01/2018 Problems Problem Type SNOMED Code ICD Code Onset Dates Problem Status W/U Status Risk Notes Problem Screening for malignant neoplasm of colon (588742917) Encounter for screening for malignant neoplasm of colon (Z12.11) Active confirmed Problem Elevated liver enzymes level (645296716) Elevated liver function tests (R79.89) Active confirmed Problem Preprocedural examination (025219955300966) Preprocedural examination (Z01.818) Active confirmed Problem Acute pancreatitis (437676013) Alcohol-induced acute pancreatitis, 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) Active confirmed Plan Of Treatment Pending Test Test Name Order Date LIVER PROFILE 02/28/2023 US ABD 02/28/2023 Future Test Test Name Order Date COLONOSCOPY 11/10/2020 Insurance Providers Payer Name Payer Address Payer Phone Subscriber Number Group Number Insured Name Patient Relationship to Insured Coverage Start Date Coverage End Date [facility] [address] [address] [place] [address] [id number] HIGINIO CAM Self - patient is the insured Medical (General) History Medical History History ICD Code Denies [place],DM,CVA,Lung disease,renal dise ase HTN Hyperlipidemia Neg. screening colonoscopy in 08/2010 an d in 10/2020 Pancreatitis in 2018 due to EtOH Diverticulosis Aseptic necrosis R/hip Surgical History Surgery Date(Month/Year) Right hip replacement 08/2005 Tonsillectomy
--- OUTSIDE RECORDS SUMMARY | 2025-09-15 16:26 | XMS_ITS | Patient Health Record ---
Author Organization [facility] [place] Address [address] [facility] [place] [address] Care Team Providers Care Street Light Servicer Supervisor Name Role Phone Edwin Bradley Primary Care Provider Unavailab Osman Jeong Unavailable [phone] Allergies Allergen (clinical drug ingredient) Drug/Non Drug [...] atherosclerosis of arteries of lower limbs (disorder) ([id number] ) Atherosclerosis of assiniboine and sioux artery of both lower extremities, with unspecified presence of clinical manifestation (I70.203) Active confirmed Vital Signs Blood pressure diastolic 60 mm Hg 08/03/2025 Height 6ft 2in in 08/03/2025 Blood pressure systolic 115 mm Hg 08/03/2025 Weight 195 lbs 08/03/2025 BMI 25.03 kg/m2 08/03/2025 Procedures Procedure Date Ordered Date Performed Result Body Sit e 03415-NNFBAZQ NAIL, 6 OR MORE 11/03/2024 N/A 23682-MVRG SKIN LESIONS, OVER 4 11/03/2024 N/A 51311-UUHWYYU NAIL, 6 OR MORE 02/02/2025 N/A 02455-FUCQ SKIN LESIONS, OVER 4 02/02/2025 N/A 63762-RWXPHMG NAIL, 6 OR MORE 05/04/2025 N/A 02090-SZFI SKIN LESIONS, OVER 4 05/04/2025 N/A 77105-MULOTGE NAIL, 6 OR MORE 08/03/2025 N/A 06454-YNWU SKIN LESIONS, OVER 4 08/03/2025 N/A Encounters Encounter Location Date Provider Diagnosis [facility] [address] [address] 11/03/2024 Osman Blanc Atherosclerosis of assiniboine and sioux artery of both lower extremities, with unspecified presence of clinical manifestation I70.203 ; Tinea unguium B35.1 ; Pain in right toe(s) M79.674 and Pain in left toe(s) M79.675 [facility] [address] 02/02/2025 Osman Blanc Atherosclerosis of assiniboine and sioux artery of both lower extremities, with unspecified presence of clinical manifestation I70.203 ; Tinea unguium B35.1 ; Pain in right toe(s) M79.674 and Pain in left toe(s) M79.[address] [address] 05/04/2025 Osman Hernandezunier Atherosclerosis of assiniboine and sioux artery of both lower extremities, with unspecified presence of clinical manifestation I70.203 ; Tinea unguium B35.1 ; Pain in right toe(s) M79.674 ; Pain in left toe(s) M79.675 and Xerosis of skin L85.[address] [address] 08/03/2025 Osman Hernandezunier Atherosclerosis of assiniboine and sioux artery of both lower extremities, with unspecified presence of clinical manifestation I70.203 ; Tinea unguium B35.1 ; Pain in right toe(s) M79.674 ; Pain in left toe(s) M79.675 and Xerosis of skin L85.3 Assessments Encounter Date Diagnosis (ICD Code) Assessment Notes Treatment Notes Treatment Clinical Notes Section Notes 11/03/2024 Tinea unguium (ICD-10 - B35.1) 11/03/2024 Atherosclerosis of assiniboine and sioux artery of both lower extremities, with unspecified presence of clinical manifestation (ICD-10 - I70.203) 02/02/2025 Tinea unguium (ICD-10 - B35.1) 02/02/2025 Atherosclerosis of assiniboine and sioux artery of both lower extremities, with unspecified presence of clinical manifestation (ICD-10 - I70.203) 05/04/2025 Tinea unguium (ICD-10 - B35.1) 05/04/2025 Atherosclerosis of assiniboine and sioux artery of both lower extremities, with unspecified presence of clinical manifestation (ICD-10 - I70.203) 08/03/2025 Tinea unguium (ICD-10 - B35.1) 08/03/2025 Atherosclerosis of assiniboine and sioux artery of both lower extremities, with unspecified [...] Treatment Pending Test Test Name Order Date 44025-JWKRWBB NAIL, 6 OR MORE 04/10/2022 83809-CDWTGLJ NAIL, 6 OR MORE 07/10/2022 83711-ZPNUVAD NAIL, 6 OR MORE 10/12/2022 51864-HUTKUNO NAIL, 6 OR MORE 01/25/2023 14426-VXHGRLN NAIL, 6 OR MORE 04/23/2023 82727-KCLATZE NAIL, 6 OR MORE 07/26/2023 95900-QAOJOFJ NAIL, 6 OR MORE 11/01/2023 55502-OOIBZTN NAIL, 6 OR MORE 01/31/2024 26483-KIQNWEJ NAIL, 6 OR MORE 05/05/2024 54207-NHBDEDM NAIL, 6 OR MORE 07/28/2024 66792-YKKRCYV NAIL, 6 OR MORE 11/03/2024 17001-BGZQLYI NAIL, 6 OR MORE 02/02/2025 21735-FYNMBFU NAIL, 6 OR MORE 05/04/2025 61374-CMRIQQF NAIL, 6 OR MORE 08/03/2025 68058-BLEP SKIN LESIONS, OVER 4 08/03/20 25 65312-MRNY SKIN LESIONS, OVER 4 05/04/20 25 88761-MWDN SKIN LESIONS, OVER 4 02/03/20 25 71757-RTTF SKIN LESIONS, OVER 4 11/03/19 25 45244-YZMM SKIN LESIONS, OVER 4 07/28/20 24 57060-TKPQ SKIN LESIONS, OVER 4 05/05/20 56517-CSIG SKIN LESIONS, OVER 4 01/31/20 52193-FFHI SKIN LESIONS, OVER 4 11/01/19 24 14916-URBC SKIN LESIONS, OVER 4 07/26/20 46512-EDWG SKIN LESIONS, OVER 4 04/23/20 62411-JPCQ SKIN LESIONS, OVER 4 01/26/20 23 20614-EKNB SKIN LESIONS, OVER 4 10/12/20 18595-PCKA SKIN LESIONS, OVER 4 07/10/20 14764-TYXR SKIN LESIONS, OVER 4 04/10/20 Next Appt Details Provider Name:Osman Blanc , 11/30/2025 09:00:00 AM, [address] [place], [address], Insurance Providers Payer Name Payer Address Payer Phone Subscriber Number Group Number Insured Name Patient Relationship to Insured Coverage Start Date Coverage End Date [employer] Medicare Adv-[id number] [address] [address] [place] [address] [id number] Lynette Sanchez Self - patient is the insured Medical (General) History Medical History History ICD Code high blood pressure measles chicken pox bone implants Joint implants/screws Cholesterol Surgical History Surgery Date(Month/Year) right hip surgery 07/2015 Hospital[place] Reason [place] [facility] [place] Headache Ede natalie for 5 days same day took off med simvastatin 12/25/22
== END 2025-09-15 08:47 | disposition home or self-care (01) ==
LOC: HO.HMGAL 08:46
PROVIDERS: PCP Physician Assistant; Visit Provider Registered Nurse Emergency
DX: J30.89 Other allergic rhinitis (principal)
CPT/HCPCS: 95117; 95165

== ENCOUNTER 2025-09-29 10:34 | Outpatient (AMB) | payer MEDICARE, SELFPAY ==
--- OUTSIDE RECORDS SUMMARY | 2025-09-29 12:06 | XMS_ITS | Patient Health Record ---
Author Organization [facility] [place] Address [address] [facility] [place] [address] Care Team Providers Care Public Health Engineer Name Role Phone Edwin Bradley Primary Care Provider Unavailab Osman Jeong Unavailable [phone] Allergies Allergen (clinical drug ingredient) Drug/Non Drug [...] atherosclerosis of arteries of lower limbs (disorder) ([id number] ) Atherosclerosis of navajo artery of both lower extremities, with unspecified presence of clinical manifestation (I70.203) Active confirmed Vital Signs Blood pressure diastolic 60 mm Hg 08/03/2025 Height 6ft 2in in 08/03/2025 Blood pressure systolic 115 mm Hg 08/03/2025 Weight 195 lbs 08/03/2025 BMI 25.03 kg/m2 08/03/2025 Procedures Procedure Date Ordered Date Performed Result Body Sit e 24871-ZNAVMSP NAIL, 6 OR MORE 11/03/2024 N/A 37379-YPKC SKIN LESIONS, OVER 4 11/03/2024 N/A 09222-AEWPVME NAIL, 6 OR MORE 02/02/2025 N/A 17348-QEBR SKIN LESIONS, OVER 4 02/02/2025 N/A 80080-OMLSHJX NAIL, 6 OR MORE 05/04/2025 N/A 37192-MFED SKIN LESIONS, OVER 4 05/04/2025 N/A 53577-RTFNFFL NAIL, 6 OR MORE 08/03/2025 N/A 74037-YOMC SKIN LESIONS, OVER 4 08/03/2025 N/A Encounters Encounter Location Date Provider Diagnosis [facility] [address] [address] 11/03/2024 Osman Blanc Atherosclerosis of navajo artery of both lower extremities, with unspecified presence of clinical manifestation I70.203 ; Tinea unguium B35.1 ; Pain in right toe(s) M79.674 and Pain in left toe(s) M79.[address] [facility] [address] 02/02/2025 Osman Blanc Atherosclerosis of navajo artery of both lower extremities, with unspecified presence of clinical manifestation I70.203 ; Tinea unguium B35.1 ; Pain in right toe(s) M79.674 and Pain in left toe(s) M79.[address] [address] 05/04/2025 Osman Hernandezunier Atherosclerosis of navajo artery of both lower extremities, with unspecified presence of clinical manifestation I70.203 ; Tinea unguium B35.1 ; Pain in right toe(s) M79.674 ; Pain in left toe(s) M79.675 and Xerosis of skin L85.[address] [address] 08/03/2025 Osman Hernandezunier Atherosclerosis of navajo artery of both lower extremities, with unspecified presence of clinical manifestation I70.203 ; Tinea unguium B35.1 ; Pain in right toe(s) M79.674 ; Pain in left toe(s) M79.675 and Xerosis of skin L85.3 Assessments Encounter Date Diagnosis (ICD Code) Assessment Notes Treatment Notes Treatment Clinical Notes Section Notes 11/03/2024 Tinea unguium (ICD-10 - B35.1) 11/03/2024 Atherosclerosis of navajo artery of both lower extremities, with unspecified presence of clinical manifestation (ICD-10 - I70.203) 02/02/2025 Tinea unguium (ICD-10 - B35.1) 02/02/2025 Atherosclerosis of navajo artery of both lower extremities, with unspecified presence of clinical manifestation (ICD-10 - I70.203) 05/04/2025 Tinea unguium (ICD-10 - B35.1) 05/04/2025 Atherosclerosis of navajo artery of both lower extremities, with unspecified presence of clinical manifestation (ICD-10 - I70.203) 08/03/2025 Tinea unguium (ICD-10 - B35.1) 08/03/2025 Atherosclerosis of navajo artery of both lower extremities, with unspecified [...] Treatment Pending Test Test Name Order Date 34247-NTQWFTS NAIL, 6 OR MORE 04/10/2022 53241-XSZXXTI NAIL, 6 OR MORE 07/10/2022 20716-GRMXUER NAIL, 6 OR MORE 10/12/2022 67525-OYTYLRA NAIL, 6 OR MORE 01/25/2023 27846-GLITSUQ NAIL, 6 OR MORE 04/23/2023 03826-ODOIRUI NAIL, 6 OR MORE 07/26/2023 66031-AQQLGWD NAIL, 6 OR MORE 11/01/2023 25653-GAIBDOU NAIL, 6 OR MORE 01/31/2024 06083-GJMDWJS NAIL, 6 OR MORE 05/05/2024 45087-ETPJJBC NAIL, 6 OR MORE 07/28/2024 85976-CGFLKCB NAIL, 6 OR MORE 11/03/2024 81311-SDRKBGS NAIL, 6 OR MORE 02/02/2025 84246-ISYHFQY NAIL, 6 OR MORE 05/04/2025 25056-PGSIRJN NAIL, 6 OR MORE 08/03/2025 42738-HMRP SKIN LESIONS, OVER 4 08/03/20 25 01801-TNJS SKIN LESIONS, OVER 4 05/04/20 25 39803-GIAZ SKIN LESIONS, OVER 4 02/03/20 25 98044-VUGO SKIN LESIONS, OVER 4 11/03/19 25 99199-ZVDO SKIN LESIONS, OVER 4 07/28/20 24 48279-DRQK SKIN LESIONS, OVER 4 05/05/20 67939-HSHV SKIN LESIONS, OVER 4 01/31/20 46936-LENT SKIN LESIONS, OVER 4 11/01/19 24 92913-TSAP SKIN LESIONS, OVER 4 07/26/20 56612-YOGA SKIN LESIONS, OVER 4 04/23/20 54112-CTVP SKIN LESIONS, OVER 4 01/26/20 23 39237-ORRQ SKIN LESIONS, OVER 4 10/12/20 84503-KAVQ SKIN LESIONS, OVER 4 07/10/20 04193-MLPM SKIN LESIONS, OVER 4 04/10/20 Next Appt Details Provider Name:Osman Blanc , 11/30/2025 09:00:00 AM, [address] [place], [address], Insurance Providers Payer Name Payer Address Payer Phone Subscriber Number Group Number Insured Name Patient Relationship to Insured Coverage Start Date Coverage End Date [employer] Medicare Adv-[id number] [address] [address] [place] [address] [id number] Lynette Sanchez Self - patient is the insured Medical (General) History Medical History History ICD Code high blood pressure measles chicken pox bone implants Joint implants/screws Cholesterol Surgical History Surgery Date(Month/Year) right hip surgery 07/2015 [place] Reason Date([place] [facility] [place] Headache Ede natalie for 5 days same day took off med simvastatin 12/25/22
== END 2025-09-29 10:43 | disposition home or self-care (01) ==
LOC: HO.HMGAL 10:34
PROVIDERS: PCP Physician Assistant; Visit Provider Registered Nurse Emergency
DX: J30.89 Other allergic rhinitis (principal)
CPT/HCPCS: 95117; 95165

== ENCOUNTER 2025-10-13 09:39 | Outpatient (AMB) | payer MEDICARE, SELFPAY ==
--- OUTSIDE RECORDS SUMMARY | 2025-10-13 11:13 | XMS_ITS | Patient Health Record ---
Author Organization [facility] Address [address] [place] [address] Care Team Providers Care Visual Merchandising Specialist Name Role Phone Kleber Billy MD Primary Care Provider Michael Daily [phone] Allergies Allergen (clinical drug ingredient) Drug/Non Drug [...] Problem Screening for malignant neoplasm of colon (073086880) Encounter for screening for malignant neoplasm of colon (Z12.11) Active confirmed Problem Elevated liver enzymes level (406068414) Elevated liver function tests (R79.89) Active confirmed Problem Preprocedural examination (782722263429302) Preprocedural examination (Z01.818) Active confirmed Problem Acute pancreatitis (228905662) Alcohol-induced acute pancreatitis, 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 screening colonoscopy in 08/2010 an d in 10/2020 Pancreatitis in 2018 due to EtOH Diverticulosis Aseptic necrosis R/hip Surgical History Surgery Date(Month/Year) Right hip replacement 08/2005 Tonsillectomy
== END 2025-10-13 09:40 | disposition home or self-care (01) ==
LOC: HO.HMGAL 09:39
PROVIDERS: PCP Physician Assistant; Visit Provider Registered Nurse Emergency
DX: J30.89 Other allergic rhinitis (principal)
CPT/HCPCS: 95117; 95165